=== PATIENT | male | born 1935 | race Caucasian/White ===

== ENCOUNTER 2023-11-04 07:27 | Inpatient (IN) ==
--- NOTE | 2023-11-04 07:55 | Emergency Department Note ---
Impression & Plan Generalized weakness, Fever, Hypomagnesemia, Elevated troponin, COVID-19 ED Provider Note ED Provider Note NAME: SENTHIL HESTER AGE:88 SEX: Male : 1935 ARRIVES VIA: EMS INFORMANT: Patient ED PROVIDER(s): Evelyn Thomas DO CHIEF COMPLAINT: Generalized weakness, fever, cough HPI: This is an 88-year-old male presents emergency department due to concern for generalized weakness. He states he felt fairly well yesterday. He states he has had a cough for several days although it is nonproductive. He denies any accompanying rhinorrhea, nasal congestion, or sore throat. Patient states his ribs are sore from coughing however no other chest pain. He denies abdominal pain, change in urine or change in stools. Patient noted to have a fever on arrival here. He states he did begin feeling subjective fevers and chills overnight into this morning. Patient is a former smoker. No known sick contacts. No recent travel. PAST MEDICAL HISTORY:See Below PAST SURGICAL HISTORY:See Below FAMILY HISTORY:See Below SOCIAL HISTORY:See Below HOME MEDICATIONS:See Below ALLERGIES:See Below VITALS:See Below PHYSICAL EXAMINATION: GENERAL: alert, well appearing, well nourished, no distress, non-toxic, [place] EYE EXAM: normal conjunctiva, PERRL and EOM's grossly intact OROPHARYNX: no exudate, no erythema, lips, buccal mucosa, and tongue normal and mucous membranes are dry NECK: supple, no nuchal rigidity, no adenopathy, non-tender LUNGS: Clear but decreased to auscultation. Normal chest wall mechanics, no w/r, rales noted at the right base HEART: no murmurs, S1 normal and S2 normal ABDOMEN: abdomen soft, non-tender, normo-active bowel sounds, no masses, no rebound or guarding. BACK: Back is symmetrical on inspection and there is no deformity, no midline tenderness, no CVA tenderness. SKIN: no rashes, petechiae, orbruising UPPER EXTREMITIES: upper extremities are grossly normal. FROM, nml pulses b/l. LOWER EXTREMITIES: No pitting edema. FROM, nml pulses b/l. NEURO EXAM: Normal sensorium, cranial nerves II-XII grossly intact, normal speech, no facial droop,nogross weakness of arms, no gross weakness of legs. Gross sensation intact. No ataxia. Vital Signs: reviewed and remarkable Differential Diagnosis: viral syndrome, otitis, pharyngitis, pneumonia, influenza, meningitis, urinary tract infection, sepsis, bacteremia, as well as others were entertained. MEDICAL DECISION MAKING: This is an 88-year-old male presents emergency department due to increased weakness. Patient noted to be febrile on arrival however other vital signs stable. He had no other focal complaints. Labs drawn and sent, IV established, EKG and chest ray performed bedside interpreted by me and patient monitored on telemetry. Nasal swab also obtained and sent for viral respiratory panel. Patient noted to have significant hypomagnesemia and markedly elevated troponin. He denied any chest pain or difficulty breathing. Chest x-ray suggestive of possible pulmonary edema. Nasal swab positive for COVID. Patient and then accompanying family members who presented to bedside all updated on results and need for additional inpatient monitoring. Patient does have significant cardiac history. Given new finding of COVID as well as chest x-ray, patient sent for CT angiography of the chest additionally. Case discussed with the hospitalist team for additional evaluation and management. Patient had been started on gentle IV fluid hydration initially due to unknown cardiac status and advanced age. He was also started on IV magnesium repletion. Consultation(s): 1123: Discussed with Dr. Tate, [place] hospitalist, for additional evaluation and mgmt. ER Treatment Provided: See below Diagnostics Interpreted By Me: -ECG: Sinus tachycardia at 101, normal axis, normal intervals, Q waves noted in 3, aVF, V3, no other acute ST/T wave changes -Cardiac Monitoring: An order was placed for continuous cardiac monitoring. The monitor shows a rate of 98 with normal sinus rhythm. -Laboratory studies: As stated above and show below. 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) Coronary artery disease DM (diabetes mellitus), type 2 with neurological complications Surgical History 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) Family History Father Myocardial infarction Denies family history of Ovarian cancer Prostate cancer Breast cancer Colorectal cancer Social History Smoking Status: Former smoker Tobacco Type: Cigarettes Age Quit Using Tobacco: 47; packs per day: 2; Hx Alcohol Use: No Hx Substance Use: No Preferred Language: Polish Communication Ability: Effective Visual Impairment: No Limitations Hearing Ability: Use of Hearing Aid Appraisal Coordinator Required: No Beliefs That Will Affect Care: None marital status: Current Living Situation: [facility] current occupational status: retired Feels Safe at Home: Yes Safety Concerns: Feels Safe At This Time Seatbelt Use: always Sunscreen Use: Yes Assistive Devices: Walker Allergies Allergies Allergy/AdvReac Type Severity Reaction Status Date / Time No Known Allergies Allergy Mild Unverified 10/06/23 11:00 Home Meds Home Medications Medication Instructions Recorded Confirmed dorzolamide 22.3 mg-timolol 6.8 1 drp OPB BID 12/10/22 11/04/23 mg/mL eye drops clopidogrel 75 mg tablet 75 mg PO Q2D 11/04/23 11/04/23 cyclosporine 0.05 % eye drops 1 drp OPB BID 11/04/23 11/04/23 dulaglutide 4.5 mg/0.5 mL 4.5 mg subcut Q7D 11/04/23 11/04/23 subcutaneous pen injector (Trulicity) ferrous sulfate 325 mg (65 mg 325 mg PO Q2D 11/04/23 11/04/23 iron) tablet glipizide 10 mg tablet, extended 10 mg PO QAM 11/04/23 11/04/23 release 24 hr metformin 1,000 mg tablet 1,000 mg PO BIDM 11/04/23 11/04/23 metoprolol succinate 50 mg 50 mg PO HS 11/04/23 11/04/23 tablet,extended release 24 hr Previous Rx's Medication Instructions Recorded aspirin 81 mg tablet,delayed 81 mg PO DAILY #90 tabs 06/12/23 release (Adult Low Dose Aspirin) finasteride 5 mg tablet (Proscar) 5 mg PO DAILY #90 tabs 07/23/23 pantoprazole 40 mg tablet,delayed 40 mg PO DAILY #90 tabs 07/29/23 release (Protonix) lisinopril 5 mg tablet 5 mg PO DAILY #90 tabs 08/21/23 acetaminophen 325 mg tablet 325 mg PO QID PRN pain #30 tabs 09/16/23 (Tylenol) benzonatate 100 mg capsule 100 mg PO TID PRN cough #30 caps 09/16/23 atorvastatin 40 mg tablet 40 mg PO QPM #90 tabs 10/06/23 blood sugar diagnostic #100 ea 10/06/23 cholecalciferol (vitamin D3) 50 50 mcg PO DAILY #90 caps 10/06/23 mcg (2,000 unit) capsule citalopram 10 mg tablet 10 mg PO DAILY #30 tabs 10/06/23 lancets (Accu-Chek Fastclix Lancet #100 ea 10/06/23 Drum) amlodipine 2.5 mg tablet 2.5 mg PO DAILY #90 tabs 10/13/23 metoprolol succinate 50 mg 75 mg (1.5 x 50 mg) PO QAM #135 10/26/23 tablet,extended release 24 hr tabs Results & Data (ED) Vital Signs Vital Signs - 24 hr 11/04/23 07:46 11/04/23 07:47 11/04/23 07:50 Temperature 38.1 C H Temperature Source Oral Pulse Rate 97 H 100 H 97 H Pulse Rate from SpO2 Sensor 97 H Respiratory Rate 24 20 Blood Pressure 153/78 H Blood Pressure Mean 103 Pulse Oximetry 95 97 Oxygen Delivery Method Room Air Room Air Sepsis Recent Fever Within 48 Hours Yes Sepsis New/Unexplained Change in Mental Status No Sepsis Action Taken by Nursing No Action Required 11/04/23 07:50 11/04/23 08:00 11/04/23 08:06 Temperature Temperature Source Pulse Rate 102 H 101 H Pulse Rate from SpO2 Sensor 103 H 105 H Respiratory Rate 23 18 Blood Pressure 163/90 H Blood Pressure Mean 114 Pulse Oximetry 95 94 96 Oxygen Delivery Method Room Air Room Air Room Air Sepsis Recent Fever Within 48 Hours Sepsis New/Unexplained Change in Mental Status Sepsis Action Taken by Nursing 11/04/23 08:06 11/04/23 08:15 11/04/23 08:30 Temperature Temperature Source Pulse Rate 98 H 96 H 97 H Pulse Rate from SpO2 Sensor 98 H 96 H 100 H Respiratory Rate 22 28 H 16 Blood Pressure 166/82 H 158/85 H 158/84 H Blood Pressure Mean 110 109 108 Pulse Oximetry 93 97 94 Oxygen Delivery Method Room Air Room Air Room Air Sepsis Recent Fever Within 48 Hours Sepsis New/Unexplained Change in Mental Status Sepsis Action Taken by Nursing 11/04/23 08:45 11/04/23 09:00 11/04/23 09:30 Temperature Temperature Source Pulse Rate 93 H 91 H 92 H Pulse Rate from SpO2 Sensor 95 H 92 H Respiratory Rate 21 21 25 H Blood Pressure 159/78 H 155/81 H 150/77 H Blood Pressure Mean 105 105 101 Pulse Oximetry 92 92 Oxygen Delivery Method Room Air Room Air Sepsis Recent Fever Within 48 Hours Sepsis New/Unexplained Change in Mental Status Sepsis Action Taken by Nursing 11/04/23 09:45 11/04/23 10:00 11/04/23 10:00 Temperature 37.0 C Temperature Source Oral Pulse Rate 87 81 Pulse Rate from SpO2 Sensor Respiratory Rate 19 20 Blood Pressure 155/83 H 149/77 H Blood Pressure Mean 107 101 Pulse Oximetry 98 97 Oxygen Delivery Method Room Air Room Air Sepsis Recent Fever Within 48 Hours Sepsis New/Unexplained Change in Mental Status Sepsis Action Taken by Nursing 11/04/23 10:12 11/04/23 10:15 11/04/23 10:30 Temperature 37.0 C Temperature Source Oral Pulse Rate 84 87 Pulse Rate from SpO2 Sensor 87 Respiratory Rate 20 16 Blood Pressure 154/76 H 149/79 H Blood Pressure Mean 102 102 Pulse Oximetry 98 95 Oxygen Delivery Method Room Air Room Air Sepsis Recent Fever Within 48 Hours Sepsis New/Unexplained Change in Mental Status Sepsis Action Taken by Nursing 11/04/23 10:45 11/04/23 11:00 Temperature Temperature Source Pulse Rate 89 84 Pulse Rate from SpO2 Sensor 89 84 Respiratory Rate 23 15 Blood Pressure 162/85 H 158/86 H Blood Pressure Mean 110 110 Pulse Oximetry 94 94 Oxygen Delivery Method Room Air Room Air Sepsis Recent Fever Within 48 Hours Sepsis New/Unexplained Change in Mental Status Sepsis Action Taken by Nursing Laboratory Data 11/05/23 06:36 11/05/23 06:36 Lab Results 11/04/23 11/04/23 11/04/23 Range/Units 07:43 09:23 10:09 WBC Cancelled 5.46 RBC Cancelled 3.76 L Hgb Cancelled 10.6 L Hct Cancelled 31.6 L MCV Cancelled 84.0 MCH Cancelled 28.2 MCHC Cancelled 33.5 RDW Std Deviation Cancelled 41.9 RDW Coeff of Brittany Cancelled 13.8 Plt Count Cancelled 132 MPV Cancelled 10.4 Immature Gran % (Auto) Cancelled 0.4 Neut % (Auto) Cancelled 80.9 Lymph % (Auto) Cancelled 5.3 Valley % (Auto) Cancelled 12.3 Eos % (Auto) Cancelled 0.7 Baso % (Auto) Cancelled 0.4 Neut # (Auto) Cancelled 4.42 Lymph # (Auto) Cancelled 0.29 L [place] # (Auto) Cancelled 0.67 H Eos # (Auto) Cancelled 0.04 Baso # (Auto) Cancelled 0.02 Immature Gran # (Auto) Cancelled 0.02 Absolute Nucleated RBC Cancelled Nucleated RBC % (auto) Cancelled Neutrophils % (Manual) Cancelled Band Neutrophils % Cancelled Lymphocytes % (Manual) Cancelled Prolymphocyte % Cancelled Reactive Lymphs % (Man) Cancelled Monocytes % (Manual) Cancelled Eosinophils % (Manual) Cancelled Basophils % (Manual) Cancelled Metamyelocytes % (Man) Cancelled Myelocytes % (Man) Cancelled Promyelocytes % (Man) Cancelled Blast Cells % (Manual) Cancelled Plasma Cell % (Manual) Cancelled Other Cells % Cancelled Nucleated RBC % Cancelled Neutrophils # (Manual) Cancelled Band Neutrophils # Cancelled Total Absolute Neuts Cancelled Lymphocytes # (Manual) Cancelled Prolymphocyte # Cancelled Reactive Lymphs # Cancelled Total Abs Lymphocytes Cancelled Monocytes # (Manual) Cancelled Eosinophils # (Manual) Cancelled Basophils # (Manual) Cancelled Metamyelocytes # (Man) Cancelled Myelocytes # (Manual) Cancelled Promyelocytes # (Man) Cancelled Blast Cells # (Man) Cancelled Plasma Cell # (Manual) Cancelled Other Cells # Cancelled Nucleated RBCs # (Man) Cancelled Hypersegmented Neuts Cancelled Hyposegmented Neuts Cancelled Hypogranular Neuts Cancelled Large Granular Lymphs Cancelled # Lrg Granular Lymphs Cancelled Hairy Cells Cancelled Smudge Cells Cancelled Toxic Granulation Cancelled Toxic Vacuolation Cancelled Dohle Bodies Cancelled Collin Rods Cancelled Platelet Estimate Cancelled Hypogranular Platelets Cancelled Giant Platelets Cancelled Platelet Satelliting Cancelled RBC Morphology Cancelled Polychromasia Cancelled Hypochromasia Cancelled Poikilocytosis Cancelled Basophilic Stippling Cancelled Anisocytosis Cancelled Microcytosis Cancelled Macrocytosis Cancelled Spherocytes Cancelled Pappenheimer Bodies Cancelled Sickle Cells Cancelled Target Cells Cancelled Tear Drop Cells Cancelled Ovalocytes Cancelled Stomatocytes Cancelled [place] Bodies Cancelled Echinocytes Cancelled Acanthocytes (Spur) Cancelled Rouleaux Cancelled RBC Agglutinates Cancelled Schistocytes Cancelled Sezary Cell Cancelled Sodium 137 (136-145) mmol/L Potassium 4.7 (3.5-5.1) mmol/L Chloride 107 (98-107) mmol/L Carbon Dioxide 21 (21-32) mmol/L Anion Gap 9 (3-11) BUN 22 (6-23) mg/dl Creatinine 1.65 H (0.6-1.4) mg/dl Est Cr Clr Drug Dosing 36.6 ml/min Est GFR ( Amer) 42.9 ml/min Est GFR (Non-Af Amer) 37.0 ml/min BUN/Creatinine Ratio 13.3 (10-20) Glucose 154 H (70-99(Fasting)) mg/dl Lactate 2.6 H* 1.9 (0.4-2.0) mmol/L Calcium 9.0 (8.6-10.3) mg/dl Magnesium 1.2 L 1.4 L (1.7-2.4) mg/dl Total Bilirubin 0.5 (0.2-1.0) mg/dl Direct Bilirubin TNP AST 22 (13-39) U/L ALT 13 (7-52) U/L Alkaline Phosphatase 85 (34-104) U/L Troponin I High Sens 2234.8 H* 2507.2 H* (0-20) pg/ml B-Natriuretic Peptide 510 H (0-100) pg/ml Total Protein 7.0 (6.0-8.3) gm/dl Albumin 4.2 (3.4-5.0) gm/dl Procalcitonin 0.09 (0-0.5) ng/ml Adenovirus (PCR) Not Detected (NotDetected) B. pertussis DNA (PCR) Not Detected (NotDetected) B.parapertussis DNA PCR Not Detected (NotDetected) C. pneumoniae DNA (PCR) Not Detected (NotDetected) Coronavirus OC43 (PCR) Not Detected (NotDetected) Coronavirus HKU1 (PCR) Not Detected (NotDetected) Coronavirus 229E (PCR) Not Detected (NotDetected) SARS-CoV-2 (PCR) DETECTED A (NotDetected) Coronavirus NL63 (PCR) Not Detected (NotDetected) Human Metapneumovir PCR Not Detected (NotDetected) Influenza Type A (PCR) Not Detected (NotDetected) Influenza Type B (PCR) Not Detected (NotDetected) M. pneumoniae (PCR) Not Detected (NotDetected) Parainfluenza 1 (PCR) Not Detected (NotDetected) Parainfluenza 2 (PCR) Not Detected (NotDetected) Parainfluenza 3 (PCR) Not Detected (NotDetected) Parainfluenza 4 (PCR) Not Detected (NotDetected) RSV (PCR) Not Detected (NotDetected) Entero/Rhino (PCR) Not Detected (NotDetected) Blood Parasites ID Cancelled Administered Medications Aspirin (Aspirin 81 Mg Ectab) 81 mg PO DAILY [facility] Stop: 12/05/23 08:59 Last Admin: 11/05/23 09:21 Dose: 81 mg Documented By: EVAN Atorvastatin Calcium (Atorvastatin 40 Mg Tab) 40 mg PO QPM [facility] Stop: 12/04/23 20:59 Last Admin: 11/04/23 21:32 Dose: 40 mg Documented By: ROB Citalopram Hydrobromide (Citalopram 20 Mg Tab) 10 mg PO DAILY [facility] Stop: 12/05/23 08:59 Last Admin: 11/05/23 09:20 Dose: 10 mg Documented By: EVAN Dorzolamide/Timolol (Dorzolamide/Timolol 22.3/6.8mg/Ml 10 Ml Btl) 1 drops OPB BID [facility] Stop: 12/04/23 20:59 Last Admin: 11/05/23 09:55 Dose: 1 drops Documented By: Admin: 11/04/23 21:31 Dose: 1 drops Documented By: ROB Ferrous Sulfate (Ferrous Sulfate 325 Mg Tab) 325 mg PO Q2D [facility] Stop: 12/05/23 08:59 Last Admin: 11/05/23 09:21 Dose: 325 mg Documented By: EVAN Finasteride (Finasteride 5 Mg Tab) 5 mg PO DAILY [facility] Stop: 12/05/23 08:59 Last Admin: 11/05/23 09:20 Dose: 5 mg Documented By: EVAN Insulin Aspart (Insulin Aspart Per Unit Charge) 0 units SC ACHS [facility] Stop: 12/04/23 15:50 Last Admin: 11/05/23 13:51 Dose: 5 units Documented By: EVAN Co-signed By: MARTY Admin: 11/05/23 10:15 Dose: 7 units Documented By: EVAN Co-signed By: MARTY Admin: 11/04/23 21:23 Dose: 2 units Documented By: ROB Co-signed By: LIDA Admin: 11/04/23 17:48 Dose: 2 units Documented By: MAGALY Co-signed By: LATOYA Admin: 11/04/23 17:47 Dose: Not Given Documented By: MAGALY Insulin Glargine (Lantus Per Unit Charge) 7 units SQ BID [facility] Stop: 12/04/23 20:59 Last Admin: 11/05/23 10:15 Dose: 7 units Documented By: EVAN Co-signed By: MARTY Admin: 11/04/23 21:24 Dose: 7 units Documented By: ROB Co-signed By: LIDA Lisinopril (Lisinopril 5 Mg Tab) 5 mg PO DAILY [facility] Stop: 12/05/23 08:59 Last Admin: 11/05/23 09:21 Dose: 5 mg Documented By: EVAN Magnesium Oxide (Magnesium Oxide 400 Mg Tab) 400 mg PO BID [facility] Stop: 12/04/23 10:29 Last Admin: 11/05/23 11:12 Dose: 400 mg Documented By: Admin: 11/04/23 21:32 Dose: 400 mg Documented By: Admin: 11/04/23 11:48 Dose: 400 mg Documented By: MARILOU Metoprolol Succinate (Metoprolol Succ 50mg Ext Rel Tab) 50 mg PO HS [facility] Stop: 12/04/23 20:59 Last Admin: 11/04/23 21:32 Dose: 50 mg Documented By: KJL Metoprolol Succinate (Metoprolol Succ 25mg Ext Rel Tab) 75 mg PO QAM [facility] Stop: 12/05/23 08:59 Last Admin: 11/05/23 09:20 Dose: 75 mg Documented By: DLDae Pantoprazole Sodium (Pantoprazole 40 Mg Tab) 40 mg PO DAILY [facility] Stop: 12/05/23 08:59 Last Admin: 11/05/23 09:20 Dose: 40 mg Documented By: DLDae Discontinued Medications Aspirin (Aspirin 81 Mg Ectab) 81 mg PO NOW STA Stop: 11/04/23 11:10 Last Admin: 11/04/23 11:50 Dose: 81 mg Documented By: NH Citalopram Hydrobromide (Citalopram 20 Mg Tab) 10 mg PO NOW STA Stop: 11/04/23 11:10 Last Admin: 11/04/23 11:49 Dose: 10 mg Documented By: NH Clopidogrel Bisulfate (Clopidogrel Bisulfate 75 Mg Tab) 75 mg PO NOW ONE Stop: 11/04/23 11:10 Last Admin: 11/04/23 11:48 Dose: 75 mg Documented By: NH Dorzolamide/Timolol (Dorzolamide/Timolol 22.3/6.8mg/Ml 10 Ml Btl) 1 drops OP ONE ONE Stop: 11/04/23 15:52 Last Admin: 11/04/23 17:00 Dose: Not Given Documented By: MAGALY Finasteride (Finasteride 5 Mg Tab) 5 mg PO NOW STA Stop: 11/04/23 11:10 Last Admin: 11/04/23 11:49 Dose: 5 mg Documented By: NH Sodium Chloride (Nss) 1,000 mls @ 999 mls/hr IV .Q1H1M AUDRA Stop: 11/04/23 09:00 Last Infusion: 11/04/23 09:57 Dose: Infused Documented By: Admin: 11/04/23 07:57 Dose: 999 mls/hr Documented By: HS Cefepime HCl (Maxipime) 2,000 mg in 20 mls @ 5 mls/min IV NOW STA; Protocol Stop: 11/04/23 07:54 Last Admin: 11/04/23 07:57 Dose: 5 mls/min Documented By: HS Acetaminophen (Ofirmev) 1,000 mg in 100 mls @ 400 mls/hr IV NOW STA Stop: 11/04/23 08:24 Last Infusion: 11/04/23 09:57 Dose: Infused Documented By: Admin: 11/04/23 08:19 Dose: 400 mls/hr Documented By: MARILOU Magnesium Sulfate/Dextrose (Magnesium Sulfate / D5w) 1 gm in 100 mls @ 100 mls/hr IV Q1H [facility]A Stop: 11/04/23 11:01 Last Infusion: 11/04/23 11:12 Dose: Infused Documented By: Admin: 11/04/23 10:11 Dose: 100 mls/hr Documented By: Infusion: 11/04/23 10:11 Dose: Infused Documented By: Admin: 11/04/23 09:17 Dose: 100 mls/hr Documented By: MARILOU Sodium Chloride (Nss) 1,000 mls @ 125 mls/hr IV .Q8H AUDRA Stop: 12/04/23 09:29 Last Infusion: 11/04/23 13:28 Dose: Infused Documented By: Infusion: 11/04/23 12:36 Dose: 0 mls/hr Documented By: Admin: 11/04/23 10:14 Dose: 125 mls/hr Documented By: MARILOU Lactated Ringer's (Lr) 1,000 mls @ 125 mls/hr IV .Q8H [facility]DRA Stop: 11/05/23 04:44 Last Infusion: 11/05/23 06:16 Dose: Infused Documented By: Admin: 11/04/23 21:36 Dose: 125 mls/hr Documented By: Infusion: 11/04/23 20:52 Dose: Infused Documented By: Admin: 11/04/23 12:52 Dose: 125 mls/hr Documented By: DENIS Magnesium Sulfate/Dextrose (Magnesium Sulfate / D5w) 1 gm in 100 mls @ 50 mls/hr IV Q2H [facility]DRA Stop: 11/05/23 12:44 Last Infusion: 11/05/23 13:31 Dose: Infused Documented By: Admin: 11/05/23 11:12 Dose: 50 mls/hr Documented By: Infusion: 11/05/23 11:04 Dose: Infused Documented By: Admin: 11/05/23 09:04 Dose: 50 mls/hr Documented By: EVAN Ioversol (Optiray 320 125ml) 118 ml IV ONCE ONE Stop: 11/04/23 11:12 Last Admin: 11/04/23 11:12 Dose: 1 ml Documented By: CAMILLA Lisinopril (Lisinopril 5 Mg Tab) 5 mg PO NOW ONE Stop: 11/04/23 11:10 Last Admin: 11/04/23 11:48 Dose: 5 mg Documented By: MARILOU Metoprolol Succinate (Metoprolol Succ 25mg Ext Rel Tab) 75 mg PO NOW STA Stop: 11/04/23 11:10 Last Admin: 11/04/23 11:49 Dose: 75 mg Documented By: MARILOU Pantoprazole Sodium (Pantoprazole 40 Mg Tab) 40 mg PO NOW STA Stop: 11/04/23 11:10 Last Admin: 11/04/23 11:47 Dose: 40 mg Documented By: MARILOU Imaging Data Radiologist's Impression: Chest X-Ray 11/04/23 07:50 XR chest 1V portable HISTORY: 88 years-old Male Sepsis acute sepsis COMPARISON: 01/07/2008 TECHNIQUE: AP view of the chest FINDINGS: Cardiac silhouette is enlarged. Cardiac loop recorder device. Pulmonary vascular congestion with interstitial coarsening. No pneumothorax. Small pleural effusions with mild bibasilar consolidation. Bones appear grossly intact. IMPRESSION: 1. Cardiomegaly with pulmonary edema. 2. Small pleural effusions with mild bibasilar consolidation. ACT 112: Negative or not required by law. The above report was generated using voice recognition software. It may contain grammatical, syntax or spelling errors. Electronically signed by: Andrew Kaplan M.D. 11/04/2023 8:34 AM Chest CTA 11/04/23 09:19 CHEST CTA for PULMONARY ARTERIES CT DOSE: 881.13 mGy.cm HISTORY: Shortness of breath. Covid positive. TECHNIQUE: Multiaxial CT images of the chest were performed following the intravenous administration of contrast to evaluate the pulmonary arteries. 3D/Maximal intensity projection images were also obtained. Sagittal and coronal reformations were also reviewed. A dose lowering technique was utilized adhering to the principles of ALARA. COMPARISON STUDY: Chest 11/04/2023. FINDINGS: Calcified plaque within the normal caliber thoracic aorta. No evidence for an aortic dissection. The heart is mildly enlarged. There are severe coronary artery calcifications noted. No pleural or pericardial effusions. No filling defects within the pulmonary arteries to suggest a pulmonary embolus. Normal thyroid gland. Normal caliber esophagus. Limited views of the upper abdomen demonstrate a normal liver, spleen, and adrenal glands. Prior cholecystectomy. No hilar lymphadenopathy. There are prominent right paratracheal lymph nodes measure up to 12 mm in short axis diameter. No acute fractures within the chest. The central airways are patent. No pneumothorax. Mild peripheral and basilar interstitial thickening. This is likely chronic. Mild congestive change could also have a similar appearance. There are mild dependent changes seen at the lung bases. Otherwise, no focal lung consolidations to suggest a pneumonia. IMPRESSION: 1. No evidence for a pulmonary embolus. 2. Mild cardiomegaly. 3. Mild mediastinal lymphadenopathy. This is indeterminate. 4. Mild peripheral and basilar interstitial thickening which is likely chronic. Mild congestive change could also have a similar appearance. ACT 112: Negative or not required by law. Electronically signed by: Ranjit Suarez M.D. 11/04/2023 11:27 AM Discharge Plan Visit Data Chief Complaint: Illness Stated Complaint: ILLNESS ED Provider: Evelyn Thomas Discharge Problem: Generalized weakness, Fever, Hypomagnesemia, Elevated troponin, COVID-19 Patient Disposition: Admitted As Inpatient Discharge Instructions Interventions: ED Discharge Assessment Last Done: 11/04/23 12:44
[2023-11-04] MEDS: SODIUM CHLORIDE 0.9% 1,000 ML IV SCH ×2 (07:57→10:14)
[2023-11-04] MEDS: CEFEPIME 2,000 MG/20 ML VIAL IV STA (07:57)
[2023-11-04] MEDS: ACETAMINOPHEN 1,000 MG/100 ML VIAL IV STA (08:19)
--- NOTE | 2023-11-04 08:36 | XRay Report ---
XR chest 1V portable HISTORY: 88 years-old Male Sepsis acute sepsis COMPARISON: 01/07/2008 TECHNIQUE: AP view of the chest FINDINGS: Cardiac silhouette is enlarged. Cardiac loop recorder device. Pulmonary vascular congestion with inte rstitial coarsening. No pneumothorax. Small pleural effusions with mild bibasilar consolidation. Bone s appear grossly intact. IMPRESSION: 1. Cardiomegaly with pulmonary edema. 2. Small pleural effusions with mild bibasilar consolidation. ACT 112: Negative or not required by law. The above report was generated using voice recognition software. It may contain grammatical, syntax o r spelling errors. Electronically signed by: Andrew Kaplan M.D. 11/04/2023 8:34 AM
[2023-11-04 09:00] LABS: Adenovirus PCR Not Detected (NotDetected); Alanine Aminotransferase 13 U/L (7-52); Albumin Level 4.2 gm/dl (3.4-5.0); Alkaline Phosphatase 85 U/L (34-104); Anion Gap 9 (3-11); Aspartate Aminotransferase 22 U/L (13-39); BUN Creatinine Ratio 13.3 (10-20); Bilirubin,Total 0.5 mg/dl (0.2-1.0); Blood Urea Nitrogen 22 mg/dl (6-23); Bordetella parapertussis PCR Not Detected (NotDetected); Bordetella pertussis PCR Not Detected (NotDetected); Carbon Dioxide 21 mmol/L (21-32); Chlamydia pneumoniae PCR Not Detected (NotDetected); Chloride 107 mmol/L (98-107); Coronavirus 229E PCR Not Detected (NotDetected); Coronavirus CoV-2 (COVID19)PCR DETECTED (NotDetected); Coronavirus HKU1 PCR Not Detected (NotDetected); Coronavirus NL63 PCR Not Detected (NotDetected); Coronavirus OC43PCR Not Detected (NotDetected); Creatinine Clr Calc Pharmacy 36.6 ml/min; Est GFR (African American) 42.9 ml/min; Glucose 154 mg/dl (70-99(Fasting)); Human Metapneumovirus PCR Not Detected (NotDetected); Influenza A PCR Not Detected (NotDetected); Influenza B PCR Not Detected (NotDetected); Magnesium 1.2 mg/dl (1.7-2.4); Mycoplasma pneumoniae PCR Not Detected (NotDetected); Parainfluenza Virus 1 PCR Not Detected (NotDetected); Parainfluenza Virus 2 PCR Not Detected (NotDetected); Parainfluenza Virus 3 PCR Not Detected (NotDetected); Parainfluenza Virus 4 PCR Not Detected (NotDetected); Potassium 4.7 mmol/L (3.5-5.1); Respiratory Syncytial VirusPCR Not Detected (NotDetected); Rhinovirus/Enterovirus PCR Not Detected (NotDetected); Sodium 137 mmol/L (136-145); Troponin I High Sensitivity 2234.8 pg/ml (0-20)
[2023-11-04] MEDS: MAGNESIUM SULFATE / D5W 1 GM/100 ML BAG IV SCH (09:17)
[2023-11-04 09:49] LABS: Basophils # (auto) 0.02 K/uL (0.00-0.20); Basophils % (auto) 0.4 %; Eosinophils # (auto) 0.04 K/uL (0.00-0.50); Eosinophils % (auto) 0.7 %; Hematocrit (blood only) 31.6 % (42.0-52.0); Hemoglobin 10.6 g/dl (14.0-18.0); Immature Granulocytes # (auto) 0.02 K/uL (0.01-0.20); Immature Granulocytes % (auto) 0.4 %; Lymphocytes # (auto) 0.29 K/uL (1.20-3.40); Lymphocytes % (auto) 5.3 %; Mean Corpuscular Hemoglobin 28.2 pg (25.0-34.0); Mean Corpuscular Hgb Conc 33.5 g/dL (32.0-36.0); Mean Platelet Volume 10.4 fL (9.4-12.4); Monocytes # (auto) 0.67 K/uL (0.11-0.59); Monocytes % (auto) 12.3 %; Neutrophils # (auto) 4.42 K/uL (1.40-6.50); Neutrophils % (auto) 80.9 %; Platelet Count 132 K/uL (130-400); RDW Coefficient of Variation 13.8 % (11.5-14.5); RDW Standard Deviation 41.9 fL (36.4-46.3); Red Blood Count 3.76 M/uL (4.70-6.10); White Blood Count 5.46 K/ul (4.8-10.8)
--- NOTE | 2023-11-04 10:16 | History & Physical Report ---
Date of Service November 04, 2023 Assessment & Plan (1) COVID: Plan: Worsening cough, weakness, and SULLIVAN the evening of 11/02 COVID + on arrival Chest CTA revealed no evidence of pulmonary embolus Isolation precautions Non-hypoxia in the ED; remdesivir not currently indicated (will also caution use given renal function) Tessalon Perles 100 mg p.o. as needed for cough Continuous pulse oximetry Supplemental oxygen as needed PT/OT consulted A.m. CBC, BMP, mag (2) Elevated troponin: Plan: Troponin elevated at 2234-->2507 Clinically, patient does endorse some chest pain, but he attributes it to recent coughing fits; no pleuritic CP, back pain, or left arm/jaw/shoulder pain or pressure May be secondary to demand ischemia given extensive cardiac history Discussed case with cardiology, and agree that given no ACS symptoms and high bleed risk (history of CVA with hemorrhagic transition) will defer anticoagulation at this time Trend troponin q6h Continuous telemetry monitoring (3) Pulmonary edema: Plan: CXR revealed cardiomegaly with pulmonary edema, as well as small pleural effusions BNP elevated at 510 (no prior for comparison) Echocardiogram ordered, pending (from note on prior echo, previously had an LVEF at 35-40%) (4) DM (diabetes mellitus), type 2 with neurological complications: Plan: Last A1c at 6.5% on 02/03/2023 Glucose 154 on admission Hold metformin, glipizide, dulaglutide Lantus 10 u BID while inpatient SSI; with target BSG range 110-140mg/dL, CF 25, carb ratio 8 T2DM diet BSG ACHS Adjust regimen as needed AM A1c (5) Stented coronary artery: Plan: S/p 5 coronary stents (with the last being in August 2022) Continue aspirin daily Plavix every other day (given on Friday 11/03) (6) Hypomagnesemia: Plan: Magnesium 1.2 on arrival Magnesium sulfate 1 g x 2 + 400mg p.o. Repeat a.m. mag (7) Sepsis: Plan: Tachycardic, febrile on arrival with pulmonary source (viral) Patient received 1000 mL bolus of NS in the ED + maintenance fluids Blood cultures ordered, pending Lactate 2.6-->1.9 on arrival Procalcitonin WNL Empiric antibiotics with Rocephin 2000 mg IV given in the ED No leukocytosis, negative procalcitonin, and (+) for viral illness; will defer further antibiotics at this time Given pulmonary edema on CXR and no hypotension in the ED, will defer full fluid bolus at this time (8) HTN (hypertension): Plan: Continue metoprolol Continue lisinopril Hold amlodipine for now (pending echo and potential need for diuresis; lower extremities without edema at this time) (9) CKD stage 3b, 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: Plan: BUN 22, creatinine 1.65 (baseline 1.5), EGFR 37.0 Avoid nephrotoxic agents where possible Continue finasteride/iron supplementation (10) Anemia: Plan: Mild; Hgb 10.6 on arrival MCV WNL (11) 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): Plan: At [facility] in September 2022 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 He presented for worsening cough, weakness, and SULLIVAN that started the evening of 11/02. Patient reports that he had a hard time sleeping that night due to cough. His is at the bedside, as well as his son/POA (Anatoly) who provides most of the history. Patient was reportedly winded when walking to dinner the evening prior. He was then feeling "groggy" during dinner, and endorsed generalized weakness at that time. He denies SOB at rest, or positional SOB such as when he lays flat. He denies history of heart failure; does note he was eating a salty dinner last night fries/fried fish sandwich. No supplemental oxygen use at home. Patient reports he is up-to-date on his COVID shots and booster. He has never had COVID before to his knowledge. He does have an extensive history of TN/CVA; cardiac r arrest in 1995; s/p 5 coronary stents with the last being in August 2023. He notes that he did have anesthesia and a skin biopsy in his left hand at a dermatology appointment on 11/02, and is unsure if this contributed to his symptoms of grogginess. Patient did not take his regular morning medications today; no recent change in medications. Patient is hypertensive at 159/78, and mildly febrile at 38.1 C at time of admission; SpO2 92% on room air. ED course: Acetaminophen 1000 mg IV Rocephin 2000 mg IV NSS 1000 mL IV Magnesium sulfate 1 g IV ROS: Patient endorses fatigue, some dizziness/lightheadedness, dry cough, chest achiness (which patient attributes to dry cough), SULLIVAN, and generalized weakness. Patient denies fever, chills, nightsweats, chest pain (anytime after stent placement in August), pleuritic CP at present, hemoptysis, pain or pressure in the left arm/shoulder/jaw, back pain, abdominal pain, N/V/D, change in urinary or bowel habits, or numbness/pain/tingling in the arms or legs bilaterally. Allergies Allergy/AdvReac Type Severity Reaction Status Date / Time No Known Allergies Allergy Mild Unverified 10/06/23 11:00 Home Medications Medication Instructions Recorded Confirmed Type dorzolamide 22.3 mg-timolol 6.8 1 drp OPB BID 12/10/22 11/04/23 History mg/mL eye drops aspirin 81 mg tablet,delayed 81 mg PO DAILY #90 tabs 06/12/23 11/04/23 Rx release (Adult Low Dose Aspirin) finasteride 5 mg tablet (Proscar) 5 mg PO DAILY #90 tabs 07/23/23 11/04/23 Rx pantoprazole 40 mg tablet,delayed 40 mg PO DAILY #90 tabs 07/29/23 11/04/23 Rx release (Protonix) lisinopril 5 mg tablet 5 mg PO DAILY #90 tabs 08/21/23 11/04/23 Rx acetaminophen 325 mg tablet 325 mg PO QID PRN pain #30 tabs 09/16/23 11/04/23 Rx (Tylenol) benzonatate 100 mg capsule 100 mg PO TID PRN cough #30 caps 09/16/23 11/04/23 Rx atorvastatin 40 mg tablet 40 mg PO QPM #90 tabs 10/06/23 11/04/23 Rx blood sugar diagnostic #100 ea 10/06/23 Rx cholecalciferol (vitamin D3) 50 50 mcg PO DAILY #90 caps 10/06/23 11/04/23 Rx mcg (2,000 unit) capsule citalopram 10 mg tablet 10 mg PO DAILY #30 tabs 10/06/23 11/04/23 Rx lancets (Accu-Chek Fastclix Lancet #100 ea 10/06/23 Rx Drum) amlodipine 2.5 mg tablet 2.5 mg PO DAILY #90 tabs 10/13/23 11/04/23 Rx metoprolol succinate 50 mg 75 mg (1.5 x 50 mg) PO QAM #135 10/26/23 11/04/23 Rx tablet,extended release 24 hr tabs clopidogrel 75 mg tablet 75 mg PO Q2D 11/04/23 11/04/23 History cyclosporine 0.05 % eye drops 1 drp OPB BID 11/04/23 11/04/23 History dulaglutide 4.5 mg/0.5 mL 4.5 mg subcut Q7D 11/04/23 11/04/23 History subcutaneous pen injector (Trulicity) ferrous sulfate 325 mg (65 mg 325 mg PO Q2D 11/04/23 11/04/23 History iron) tablet glipizide 10 mg tablet, extended 10 mg PO QAM 11/04/23 11/04/23 History release 24 hr metformin 1,000 mg tablet 1,000 mg PO BIDM 11/04/23 11/04/23 History metoprolol succinate 50 mg 50 mg PO HS 11/04/23 11/04/23 History tablet,extended release 24 hr Past Med/Surg History Medical History (Updated 11/04/23 @ 11:37 by Ranjit Harmon PA-C) CKD stage 3b, 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 Myocardial infarction (1995) Cardiac arrest (1995) Mild cognitive impairment 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) Coronary artery disease DM (diabetes mellitus), type 2 with neurological complications Surgical History 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) Family History Father Myocardial infarction Denies family history of Ovarian cancer Prostate cancer Breast cancer Colorectal cancer Social History Smoking Status: Former smoker Tobacco Type: Cigarettes Age Quit Using Tobacco: 47; packs per day: 2; Hx Alcohol Use: No Hx Substance Use: No Preferred Language: Guamanian Communication Ability: Effective Visual Impairment: No Limitations Hearing Ability: Use of Hearing Aid 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: No Beliefs That Will Affect Care: None marital status: Current Living Situation: Spouse and Group Home current occupational status: retired Feels Safe at Home: Yes Safety Concerns: Feels Safe At This Time Seatbelt Use: always Sunscreen Use: Yes Assistive Devices: None Review of Systems Review of Systems: See HPI above Physical Exam Physical Exam: General: no acute distress; non-toxic appearing; well-nourished; cooperative; SpO2 98% on RA HEENT: normocephalic, atraumatic; no scleral icterus; PERRLA w/ EOMs intact; moist mucus membrane; hard of hearing Neck: supple; no lymphadenopathy; trachea midline Skin: warm, dry without signs of tenting; no cyanosis; no rashes, bruising, lesions, or erythema noted CV: chest wall NTP; RRR; S1/S2 normal; no murmurs/rubs/gallops; pulses intact and symmetric at radial, DP, and PT Lungs: no acute respiratory distress; symmetrical chest wall expansion; clear breath sounds across all lung talbert w/o adventitious sounds; no wheezing ABD: Soft, NTP; BS present; no rebound/guarding; no distention MSK: no tics or fasciculations; no edema noted in the LEs b/l, nonerythematous Neuro: A&Ox3; normal mood and affect; fluent speech; no focal deficits; sensation grossly intact in the LEs b/l Results & Data Results & Data Vital Signs (Past 12 Hours) Vital Signs Temp Pulse Resp BP Pulse Ox O2 Del Method 11/04/23 08:45 93 H 21 159/78 H 92 Room Air 11/04/23 08:30 97 H 16 158/84 H 94 Room Air 11/04/23 08:15 96 H 28 H 158/85 H 97 Room Air 11/04/23 08:06 98 H 22 166/82 H 93 Room Air 11/04/23 08:06 96 Room Air 11/04/23 08:00 101 H 18 163/90 H 94 Room Air 11/04/23 07:50 102 H 23 95 Room Air 11/04/23 07:50 97 H 11/04/23 07:47 38.1 C H 100 H 20 153/78 H 97 Room Air 11/04/23 07:46 97 H 24 95 Room Air Laboratory Results Abnormal lab results 11/04/23 11/04/23 Range/Units 07:43 09:23 RBC 3.76 L (4.70-6.10) M/uL Hgb 10.6 L (14.0-18.0) g/dl Hct 31.6 L (42.0-52.0) % Lymph # (Auto) 0.29 L (1.20-3.40) K/uL Arthur # (Auto) 0.67 H (0.11-0.59) K/uL Creatinine 1.65 H (0.6-1.4) mg/dl Glucose 154 H (70-99(Fasting)) mg/dl Lactate 2.6 H* (0.4-2.0) mmol/L Magnesium 1.2 L (1.7-2.4) mg/dl Troponin I High Sens 2234.8 H* (0-20) pg/ml SARS-CoV-2 (PCR) DETECTED A (NotDetected) Diagnostic Findings Chest X-Ray 11/04/23 07:50 XR chest 1V portable HISTORY: 88 years-old Male Sepsis acute sepsis COMPARISON: 01/07/2008 TECHNIQUE: AP view of the chest FINDINGS: Cardiac silhouette is enlarged. Cardiac loop recorder device. Pulmonary vascular congestion with interstitial coarsening. No pneumothorax. Small pleural effusions with mild bibasilar consolidation. Bones appear grossly intact. IMPRESSION: 1. Cardiomegaly with pulmonary edema. 2. Small pleural effusions with mild bibasilar consolidation. ACT 112: Negative or not required by law. The above report was generated using voice recognition software. It may contain grammatical, syntax or spelling errors. Electronically signed by: Andrew Kaplan M.D. 11/04/2023 8:34 AM ECG Additional Comments: EKG revealed sinus tachycardia at 101 bpm; QTc 438 Age-indeterminate anterior infarct also present on prior EKG in October 2022 Code Status & VTE Plan Code Status DNR/DNI VTE Prophylaxis Plan VTE Prophylaxis will be ordered: Yes Supervising Physician Co-Signing Physician Notes Patient seen and examined, chart reviewed, case discussed with Ranjit Harmon and I agree with the assessment and plan as above except as otherwise noted Labs and images reviewed Goran is an 88[facility] with a past medical history of CAD with PCI and cardiac arrest in 1995 with multiple stents over the years subsequent to this last 08/2022 with JODY to circumflex and OM1, history of CVA with some residual balance deficit and visual field cut, hyperlipidemia, mild cognitive impairment, DM 2 on metformin/glipizide/Trulicity not on insulin who presents to the emergency department with 1 day of generalized weakness, several days of nonproductive cough, and fever. Patient was reportedly well and went to dinner with family yesterday was doing okay other than a nonproductive cough; morning of admission developed fevers/chills, general worsening, and weakness. Pt reports he did have a basket/side of salted fries and fried fish last night, denies history of heart failure/orthopnea although does not sleep laying down normally has a comfortable recliner that he uses most of the time. Reports he has never had a prior history of shortness of breath laying flat. No leg swelling. He has not had any chest pain at any point preceding admission or on admission. On ER assessment he was tachycardic, febrile, but without a yokasta kocytosis and with suspected pulmonary source due to cough. He received empiric antibiotics with cefepime and NSS 1 L bolus, additional fluids were deferred as chest x-ray shows evidence of pulmonary edema with troponin elevation. At bedside lungs CTAB, HR rrr -mrg. No LE edema or JVD is present. Fever, weakness, cough 2/2 COVID-pneumonia No evidence of bacterial superinfection, no leukocytosis and procalcitonin is normal Patient is not hypoxic, remdesivir/dexamethasone are not currently indicated - Fluids as above, clinically improving - Mg repleted, trended - APAP PRN Elevated troponin, history of CAD with PCI total x 5 last 08/[address] Anderson as an outpatient. JODY to circumflex/POBA to OM1 in 08/2022, No echo available for review, ordered Initial troponin greater than 2234. No chest pain preceding or at time of admission Patient has been chest pain-free, does have a significantly elevated troponin with demand changes on EKG. He is clinically improved following initial fluids and resuscitation lactate is normalized. Will follow echo and troponin trend. Patient has increased risk of complications of heparinization due to history of bleeding and history of intracranial bleed in the past. Would not heparinize unless necessary, discussed with patient and family who are agreeable and note they have walked this line many times and agree to avoid heparinization unless patient has ST elevations, especially uptrending troponin, or clinical change consistent with ACS including chest pain/diaphoresis. Suspect trop is 2/2 demand with COVID/acute viral illness. DAPT continued Patient did have salted fries and fried fish the evening prior to presentation and chest x-ray is with pleural effusions and congestion. Followup CTA with no evidence of PE, chronic basilar change vs mild/early congestive change overall does not appear significantly congested. Clinically pt improving with initial fluids in the setting of COVID, is without BERTA, orthopnea, or JVD. Agree w/ fluids as above, NSS switched to LR, diuresis not currently recommended. 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 Due to this his Plavix was decreased to 75 mg daily to every other day combination with aspirin after he was 6 months out from PCI Metoprolol 75 mg a.m./50 mg p.m. continued. Amlodipine 2.5 mg continued Last LDL well-controlled, 33. A1c previously well-controlled less than 7. Patient did have a event monitor without any evidence of atrial fibrillation, risks of anticoagulation especially given history of hemorrhagic stroke conversion were felt to outweigh any benefit and patient is not on anticoagulation T2DM - Hold home antiglycemics, basal-bolus whil einpt. Goal range 110-150. PG Care Time/CCT Total # of Minutes Spent Total Time Spent with Patient: Total time spent is greater than 50% in coordination of care (as documented) at patient's floor/unit and/or counseling patient: [place] [address] INT INP/OBS CARE 3/75MIN Patient Type New History Comprehensive Exam Comprehensive Medical Decision Making High Complexity Diagnoses COVID U07.1 Elevated troponin R79.89 Pulmonary edema J81.1 DM (diabetes mellitus), type 2 with neurological complications E11.49 Stented coronary artery Z95.5 Hypomagnesemia E83.42 Sepsis A41.9 HTN (hypertension) I10 CKD stage 3b, 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
[2023-11-04 11:10] LABS: Troponin I High Sensitivity 2507.2 pg/ml (0-20)
[2023-11-04] MEDS: OPTIRAY 320 125ml IV ONE (11:12)
--- NOTE | 2023-11-04 11:28 | CT Scan Report ---
CHEST CTA for PULMONARY ARTERIES CT DOSE: 881.13 mGy.cm HISTORY: Shortness of breath. Covid positive. TECHNIQUE: Multiaxial CT images of the chest were performed following the intravenous administration of contrast to evaluate the pulmonary arteries. 3D/Maximal intensity projection images were also obta ined. Sagittal and coronal reformations were also reviewed. A dose lowering technique was utilized a dhering to the principles of ALARA. COMPARISON STUDY: Chest 11/04/2023. FINDINGS: Calcified plaque within the normal caliber thoracic aorta. No evidence for an aortic dissec tion. The heart is mildly enlarged. There are severe coronary artery calcifications noted. No pleural or pericardial effusions. No filling defects within the pulmonary arteries to suggest a pulmonary em bolus. Normal thyroid gland. Normal caliber esophagus. Limited views of the upper abdomen demonstrate a normal liver, spleen, and adrenal glands. Prior cholecystectomy. No hilar lymphadenopathy. There a re prominent right paratracheal lymph nodes measure up to 12 mm in short axis diameter. No acute frac tures within the chest. The central airways are patent. No pneumothorax. Mild peripheral and basilar interstitial thickening. This is likely chronic. Mild congestive change could also have a similar dylan earance. There are mild dependent changes seen at the lung bases. Otherwise, no focal lung consolidat ions to suggest a pneumonia. IMPRESSION: 1. No evidence for a pulmonary embolus. 2. Mild cardiomegaly. 3. Mild mediastinal lymphadenopathy. This is indeterminate. 4. Mild peripheral and basilar interstitial thickening which is likely chronic. Mild congestive mcelroy e could also have a similar appearance. ACT 112: Negative or not required by law. Electronically signed by: Ranjit Suarez M.D. 11/04/2023 11:27 AM
[2023-11-04] MEDS: PANTOprazole 40 MG TAB PO STA (11:47)
[2023-11-04] MEDS: lisinopril 5 MG TAB PO ONE (11:48)
[2023-11-04] MEDS: CLOPIDOGREL BISULFATE 75 MG TAB PO ONE (11:48)
[2023-11-04] MEDS: MAGNESIUM OXIDE 400 MG TAB PO SCH (11:48)
[2023-11-04] MEDS: FINASTERIDE 5 MG TAB PO STA (11:49)
[2023-11-04] MEDS: CITALOPRAM 20 MG TAB PO STA (11:49)
[2023-11-04] MEDS: METOPROLOL SUCC 25MG EXT REL TAB PO STA (11:49)
[2023-11-04] MEDS: ASPIRIN 81 MG ECTAB PO STA (11:50)
[2023-11-04 12:32] LABS: Appearance Urine Clear (Clear); Bacteria Urine Automated None Seen (None Seen); Bilirubin Urine Negative (Negative); Blood Urine Negative (Negative); Cast Urine Automated 0-2 /lpf (0-2); Color Urine Yellow; Epithelial Cell Urine Auto 0-2 /hpf (0-2); Glucose Urine UA Negative (Negative); Ketones Urine Negative (Negative); Leukocyte Esterase Urine Negative (Negative); Nitrite Urine Negative (Negative); Protein Urine 2+ (Negative); RBC Urine Automated 0-2 /hpf (0-2); Specific Gravity Urine 1.023 (1.000-1.030); Urobilinogen Urine Negative (Negative); WBC Urine Automated 0-5 /hpf (0-5)
[2023-11-04] MEDS: LACTATED RINGER'S 1,000 ML IV SCH (12:52)
--- OUTSIDE RECORDS SUMMARY | 2023-11-04 13:16 | External Medical Summary | Continuity of Care Document ---
Author Name Unknown Organization [facility] [address] [facility] [address] [phone] Care Team Providers Care Equipment Mechanic Specialist Name Role Phone Jeremy Primary Care Physician [phone] [facility] [id number] Date(s): 09/16/23 - 09/16/23 [facility] [address] [facility] [address] [phone] Encounter Diagnosis Basal cell carcinoma of skin(Discharge Diagnosis) - 09/16/23 Actinic keratoses(Discharge Diagnosis) - 09/16/23 Superficial skin infection(Discharge Diagnosis) - 09/16/23 History of nonmelanoma skin cancer(Discharge Diagnosis) - 09/16/23 Seborrheic keratoses(Discharge Diagnosis) - 09/16/23 Discharge Disposition: Home or Self Care Attending Physician: MD Morales Cassandra Allergies, Adverse Reactions, Alerts No Known Allergies Assessment and Plan Extracted from: Title:Dermatology Office Visit Note Author:Lionel tiwari MD, Christina Date:09/16/23 1.Basal cell carcinoma of skin - Discussed with patient and son, patient has multiplebasal cell carcinomas on clinical exam today (right lowerlip at vermilion border previously biopsied,right cheek, left cheek, andright nasal tip). We have had discussions in the past, patientdoes not want to proceed with anyinvasive treatmentof cancers that are not symptomatic or dangerousto life/health - Patient is bothered bysymptoms ofbasal cell at right lower lip, vermilion border. We reviewedMohs surgery as treatment of choice. Discussed with patient, I understand he would like to avoid surgery so we discussed additional options including less invasive and E D&C versus topical chemotherapy cream. Patient would like to proceed with trial of topical chemotherapy cream. He understands thatthis treatment is notFDA approved fornodular/micronodular basal cell carcinoma and has a lower cure rate thanED&Cand certainly Mohs surgery. Bothpatient and his son voiced understanding. - Patient toleratedthe Dex cream although developssignificant responseon his nosein the past. We discussed trial of5-fluorouracil plus calcipotrienecream, patient would like toproceed with this. - Prescription for5-FU + calcipotriene cream sent [facility] pharmacy. Patient's son's phone number providedas contactto help facilitate with delivery ofmedication. - Application instructions reviewedin detail. Patient will apply Vaselineat least twice daily and as needed to affected areaduring treatment as well asafterwards until fully healed. 2.Actinic keratoses - Chronic and multiple. Patientdeclines treatment as lesions are not bothersome to him 3.Superficial skin infection - Acute, left dorsal hand, suspect secondarily infected actinic keratosis -Start mupirocin 2% ointment, apply thin layer to affected area twice daily for 14 days 4.Seborrheic keratoses - chronic skin lesions, benign, reassurance provided 5.History of nonmelanoma skin cancer - Significant history of nonmelanoma skin cancer as well as multiple active/untreated basal cell skin cancers - counselled skin cancer warning signs, monthly skin self exams Follow-up 4 weeks Medications amLODIPine 2.5 mg oral tablet Start: 05/28/23 10:41:00 EDT, 1 tab, PO, Daily Start Date: 05/28/23 Status: Ordered aspirin 81 mg oral delayed release tablet Start: 05/28/23 10:50:00 EDT, 1 tab, PO, Daily Start Date: 05/28/23 Status: Ordered atorvastatin 40 mg oral tablet Start: 05/28/23 10:44:00 EDT, 1 tab, PO, Daily Start Date: 05/28/23 Status: Ordered cholecalciferol Start: 05/28/23 10:47:00 EDT, See Instructions, 50 mcg one in the afternoon. Start Date: 05/28/23 Status: Ordered citalopram 10 mg oral tablet Start: 05/28/23 10:45:00 EDT, 1 tab, PO, Daily Start Date: 05/28/23 Status: Ordered clopidogrel 75 mg oral tablet Start: 05/28/23 10:44:00 EDT Start Date: 05/28/23 Status: Ordered cycloSPORINE 0.05% ophthalmic emulsion Start: 05/28/23 10:48:00 EDT, 1 drop, both eyes, q12h Start Date: 05/28/23 Status: Ordered dorzolamide-timolol 2.23%-0.68% ophthalmic solution Start: 05/28/23 10:42:00 EDT, 1 drop, both eyes, bid Start Date: 05/28/23 Status: Ordered ferrous sulfate 325 mg (65 mg elemental iron) oral tablet Start: 05/28/23 10:49:00 EDT, See Instructions, every other day Start Date: 05/28/23 Status: Ordered finasteride 5 mg oral tablet Start: 05/28/23 10:42:00 EDT, 1 tab, PO, Daily Start Date: 05/28/23 Status: Ordered glipiZIDE 10 mg oral tablet, extended release Start: 05/28/23 10:41:00 EDT, 1 tab, PO, Daily Start Date: 05/28/23 Status: Ordered lisinopril 5 mg oral tablet Start: 05/28/23 10:44:00 EDT, 1 tab, PO, Daily Start Date: 05/28/23 Status: Ordered metFORMIN 1000 mg oral tablet Start: 05/28/23 10:45:00 EDT, 1 tab, PO, bid Start Date: 05/28/23 Status: Ordered Metoprolol Succinate ER 50 mg oral tablet, extended release Start: 05/28/23 10:42:00 EDT Start Date: 05/28/23 Status: Ordered mupirocin 2% topical ointment Start: 09/16/23 15:25:00 EST, 1 appl, topical, tid, Disp# 22 g, X 14 day, Refills: 1, Apply a thin film to affected area on left hand twice daily, Stop: 10/14/23 15:25:00 EDT, Pharmacy: [facility] Start Date: 09/16/23 Stop Date: 10/14/23 Status: Ordered pantoprazole 40 mg oral delayed release tablet Start: 05/28/23 10:43:00 EDT, 1 tab, PO, Daily Start Date: 05/28/23 Status: Ordered Trulicity Pen 4.5 mg/0.5 mL subcutaneous solution Start: 05/28/23 10:41:00 EDT Start Date: 05/28/23 Status: Ordered Mental Status 09/16/23 Barriers to Learning one year None evide nt Mandatory Health Literacy Documentation Yes Health Literacy Communication Barriers N ever Primary Language Czech Problem List Diagnosis Diagnosis Type Effective Dates Health Status Clinical Service Informant History of nonmelanoma skin cancer Discharge Diagnosis 09/16/23 Basal cell carcinoma of skin Discharge Diagnosis 09/16/23 Actinic keratoses Discharge Diagnosis 09/16/23 Seborrheic keratoses Discharge Diagnosis 09/16/23 Superficial skin infection Discharge Diagnosis 09/16/23 Social History Social History Type Response Smoking Status Never smoked cigaret meghan Sex Male Dermatology Outpatient Note * MD Andrew, Christina: PERFORM Event Display: Dermatology Outpt Note Authored Date: [id number] Chief Complaint Follow up check lower lip and S/P Efudex tx nose. Accompanied by son. History of Present Illness Is an 88-year-old male, returning for follow-upto evaluate response of Efudex treatmentto the nose and also discussedpathology results from recent biopsy at lower lip. Accompanied tothe office by his son who is POA. Patient reports and son confirms that heended up using Efudex cream to nose and medial cheeksfor total of 8 weeks. He developed a significant responsewith crusting and oozingbutreports that he toleratedthis without significant discomfort. Note is healed incredibly well sincetreatment and he is very happy with outcome. Patient notes that the spot on hisright lower lip that was biopsied (pathology as below, BCC) is smaller thanprebiopsy size howeverdoes often peeling crust. This tends to site cycle and he admits that hemanipulates the area. Patientdenies any other new, changing or concerning skin lesions. Diagnosis ([id number]) 1.Skin, R lower lip, vermilion, shave biopsy: -Basal cell carcinoma of nodular and focally micronodular type Physical Exam A&O x 3, well-appearing, well-groomed, pleasant Above the waist skin exam including scalp, face, eyelids, lips, ears, upper extremities, hands, fingernails, chest, abdomen and back remarkable for: Significant improvement in background actinic damage on nose,there is a pinkpearly papule at theright nasal tip Desloge pearly focally crusted papules on the right and leftcheeks Pinkdaily macule at theright lower lip vermilion border many prince to light brown waxy stuck on papules on trunk Significant greasy scale throughout scalp, no notable background erythema Significant xerosis of bilateralarms, there are mildpink hyperkeratotic macules scattered onbilateral arms and dorsal aspectof hands on the leftdorsal hand there is an area of thin hemorrhagic crust with surrounding erythemaand mild edema Images 2023-09-16 15:27:58 Assessment/Plan 1.Basal cell carcinoma of skin - Discussed with patient and son, patient has multiplebasal cell carcinomas on clinical exam today (right lowerlip at vermilion border previously biopsied,right cheek, left cheek, andright nasal tip). We have had discussions in the past, patientdoes not want to proceed with anyinvasive treatmentof cancers that are not symptomatic or dangerousto life/health - Patient is bothered bysymptoms ofbasal cell at right lower lip, vermilion border. We reviewedMohs surgery as treatment of choice. Discussed with patient, I understand he would like to avoid surgery so we discussed additional options including less invasive and E D&C versus topical chemotherapy cream. Patient would like to proceed with trial of topical chemotherapy cream. He understands thatthis treatment is notFDA approved fornodular/micronodular basal cell carcinoma and has a lower cure rate thanED&Cand certainly Mohs surgery. Bothpatient and his son voiced understanding. - Patient toleratedthe Dex cream although developssignificant responseon his nosein the past. We discussed trial of5-fluorouracil plus calcipotrienecream, patient would like toproceedwith this. - [facility] Patient's son's phone number providedas contactto help facilitate with delivery ofmedication. - Application instructions reviewedin detail. Patient will apply Vaselineat least twice dailyand as needed to affected areaduring treatment as well asafterwards until fully healed. 2.Actinic keratoses - Chronic and multiple. Patientdeclines treatment as lesions are not bothersome to him 3.Superficial skin infection - Acute, left dorsal hand, suspect secondarily infected actinic keratosis -Start mupirocin 2% ointment, apply thin layer to affected area twice daily for 14 days 4.Seborrheic keratoses - chronic skin lesions, benign, reassurance provided 5.History of nonmelanoma skin cancer - Significant history of nonmelanoma skin cancer as well as multiple active/untreated basal cell skin cancers - counselled skin cancer warning signs, monthly skin self exams Follow-up 4 weeks Medications amLODIPine(amLODIPine 2.5 mg oral tablet), 2.5 mg= 1 tab, PO, Daily aspirin(aspirin 81 mg oral delayed release tablet), 81 mg= 1 tab, PO, Daily atorvastatin(atorvastatin 40 mg oral tablet), 40 mg= 1 tab, PO, Daily cholecalciferol, See Instructions citalopram(citalopram 10 mg oral tablet), 10 mg= 1 tab, PO, Daily clopidogrel(clopidogrel 75 mg oral tablet) cycloSPORINE ophthalmic(cycloSPORINE 0.05% ophthalmic emulsion), 1 drop, both eyes, q12h dorzolamide-timolol ophthalmic(dorzolamide-timolol 2.23%-0.68% ophthalmic solution), 1 drop, both eyes, bid dulaglutide(Trulicity Pen 4.5 mg/0.5 mL subcutaneous solution) ferrous sulfate(ferrous sulfate 325 mg (65 mg elemental iron) oral tablet), See Instructions finasteride(finasteride 5 mg oral tablet), 5 mg= 1 tab, PO, Daily glipiZIDE(glipiZIDE 10 mg oral tablet, extended release), 10 mg= 1 tab, PO, Daily lisinopril(lisinopril 5 mg oral tablet), 5 mg= 1 tab, PO, Daily metFORMIN(metFORMIN 1000 mg oral tablet), 1000 mg= 1 tab, PO, bid metoprolol(Metoprolol Succinate ER 50 mg oral tablet, extended release) mupirocin topical(mupirocin 2% topical ointment), 1 appl, topical, tid, 1 refills pantoprazole(pantoprazole 40 mg oral delayed release tablet), 40 mg= 1 tab, PO, Daily Allergies NKA Social History Smoking Status Never smoked cigarettes Electronic Signature on File Electronically Reviewed/Signed by: Christina Morales MD Author Signature Dt/Tm:09/16/2023 10:47 PM Department of Dermatology CS Patient Care team information Care Team Personnel Name: MD Ruby Jeffrey W Position: Referring DIRECT Member Role: Primary Care Provider Address: Address: [facility] [place] [address] [place] Care Team Related Persons Name: Dae HESTER III Address: [place] Address: home [address] [place] [id number]
[2023-11-04 15:00] LABS: Magnesium 1.4 mg/dl (1.7-2.4)
[2023-11-04] MEDS ORDERED: ONDANSETRON INJ 2 MG/ML 2 ML VIAL IV PRN (15:51)
[2023-11-04] MEDS ORDERED: CARBOHYDRATES FOR HYPOGLYCEMIA PO PRN (15:51)
[2023-11-04] MEDS ORDERED: GLUCAGON FOR INJ 1 MG VIAL SQ PRN (15:51)
[2023-11-04] MEDS ORDERED: DEXTROSE 50% 50 ML SYRINGE IV PRN (15:51)
[2023-11-04] MEDS ORDERED: ACETAMINOPHEN 325 MG TAB PO PRN (15:51)
[2023-11-04] MEDS ORDERED: GLUCOSE 40% GEL 15 GM TUBE PO PRN (15:51)
[2023-11-04] MEDS ORDERED: GLUCOSE 10 TAB/TUBE PO PRN (15:51)
[2023-11-04] MEDS ORDERED: ARTIFICIAL TEARS OP PRN (16:16)
[2023-11-04] MEDS: DORZOLAMIDE/TIMOLOL 22.3/6.8MG/ML 10 ML BTL OP ONE (17:00)
[2023-11-04] MEDS: INSULIN ASPART PER UNIT CHARGE SC SCH (17:36)
[2023-11-04] MEDS: LANTUS PER UNIT CHARGE SQ SCH (21:24)
[2023-11-04] MEDS: DORZOLAMIDE/TIMOLOL 22.3/6.8MG/ML 10 ML BTL OPB SCH (21:31)
[2023-11-04] MEDS: METOPROLOL SUCC 50MG EXT REL TAB PO SCH (21:32)
[2023-11-04] MEDS: ATORVASTATIN 40 MG TAB PO SCH (21:32)
--- NOTE | 2023-11-05 05:23 | XCELERA ---
[id number]
[2023-11-05 07:16] LABS: Basophils # (auto) 0.02 K/uL (0.00-0.20); Basophils % (auto) 0.5 %; Eosinophils # (auto) 0.01 K/uL (0.00-0.50); Eosinophils % (auto) 0.2 %; Hematocrit (blood only) 29.5 % (42.0-52.0); Hemoglobin 9.4 g/dl (14.0-18.0); Immature Granulocytes # (auto) 0.01 K/uL (0.01-0.20); Immature Granulocytes % (auto) 0.2 %; Lymphocytes # (auto) 0.43 K/uL (1.20-3.40); Lymphocytes % (auto) 10.4 %; Mean Corpuscular Hemoglobin 27.5 pg (25.0-34.0); Mean Corpuscular Hgb Conc 31.9 g/dL (32.0-36.0); Mean Corpuscular Volume 86.3 fL (80.0-100.0); Mean Platelet Volume 10.4 fL (9.4-12.4); Monocytes # (auto) 0.75 K/uL (0.11-0.59); Monocytes % (auto) 18.2 %; Neutrophils # (auto) 2.91 K/uL (1.40-6.50); Neutrophils % (auto) 70.5 %; Platelet Count 119 K/uL (130-400); RDW Coefficient of Variation 14.2 % (11.5-14.5); RDW Standard Deviation 44.5 fL (36.4-46.3); Red Blood Count 3.42 M/uL (4.70-6.10); White Blood Count 4.13 K/ul (4.8-10.8)
[2023-11-05 07:41] LABS: BUN Creatinine Ratio 9.6 (10-20); Calcium 8.2 mg/dl (8.6-10.3); Creatinine Clr Calc Pharmacy 32.3 ml/min; Est GFR (African American) 36.7 ml/min; Est GFR (Non-African American) 31.6 ml/min; Magnesium 1.5 mg/dl (1.7-2.4); Potassium 4.4 mmol/L (3.5-5.1)
[2023-11-05 07:45] LABS: Estimated Average Glucose 154 mg/dl
[2023-11-05] MEDS: MAGNESIUM SULFATE / D5W 1 GM/100 ML BAG IV SCH (09:04)
[2023-11-05] MEDS: CITALOPRAM 20 MG TAB PO SCH (09:20)
[2023-11-05] MEDS: FINASTERIDE 5 MG TAB PO SCH (09:20)
[2023-11-05] MEDS: METOPROLOL SUCC 25MG EXT REL TAB PO SCH (09:20)
[2023-11-05] MEDS: PANTOprazole 40 MG TAB PO SCH (09:20)
[2023-11-05] MEDS: FERROUS SULFATE 325 MG TAB PO SCH (09:21)
[2023-11-05] MEDS: lisinopril 5 MG TAB PO SCH (09:21)
[2023-11-05] MEDS: ASPIRIN 81 MG ECTAB PO SCH (09:21)
--- NOTE | 2023-11-05 13:50 | Hospitalist Progress Note ---
Date of Service November 05, 2023 Assessment & Plan (1) COVID: Plan: - COVID positive on arrival. Worsening cough, weakness, and [place] the evening of 11/02. Not hypoxic on arrival. - Chest x-ray revealed small pleural effusions with mild bibasilar consolidation and cardiomegaly with pulmonary edema. Concern for COVID-pneumonia - Chest CTA revealed no evidence of pulmonary embolus. - Isolation precautions - Continuous pulse oximetry - Supplemental oxygen as needed - Remdesivir 100 mg IV daily, last dose 11/08/23. - Tessalon Perles 100 mg p.o. as needed for cough (2) Elevated troponin: Plan: - Elevated troponin on presentation, downtrending. -- Negative cardiac symptoms on presentation, other than chest pain which patient attributes to recent coughing fits. -- Elevated troponin most likely secondary to demand ischemia given extensive cardiac history. 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 Moderately to severely reduced systolic function. Mild concentric left ventricular hypertrophy. No significant valvular abnormalities visualized. (4) DM (diabetes mellitus), type 2 with neurological complications: Plan: - HgbA1c 11/05/23 at 7.0%. A1c from 02/03/2023 was at 6.5%. - Glucose 154 on admission - Hold metformin, glipizide, dulaglutide - Lantus 10 u BID while inpatient - SSI; with target BSG range 110-140mg/dL, CF 25, carb ratio 8 - T2DM diet - BSG ACHS - Adjust regimen as needed (5) Stented coronary artery: Plan: - S/p 5 coronary stents (with the last being in August 2022) -Chronic and stable continue aspirin daily - Plavix every other day (given on Friday 11/03) (6) Hypomagnesemia: Plan: - Magnesium 1.2 on arrival, repleted (7) Sepsis: Plan: - Patient presented tachycardic and febrile on arrival with pulmonary source (viral). - Lactate down trended from 2.6-1.9. Procalcitonin WNL. - Given pulmonary edema identified on chest x-ray and no hypotension and ED, fluid bolus was deferred. - Received 1 dose of empiric cefepime in ED. No leukocytosis, negative procal, and positive viral illness --> continue to defer further antibiotics at this time. 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 MCV WNL - Hemodynamically stable at this time. Continue to monitor. 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 Patient reports that he continues to have a dry cough and shortness of breath with activity. Denies sputum production, chest pain, SOB at rest, nausea, urinary symptoms, or abdominal symptoms. I personally had a very thorough discussion with the son about the hospital course and answered all of his questions. Physical Exam Physical Exam: General: No acute distress, nondiaphoretic, well-developed, well-nourished. Skin: The skin was without rashes, erythema, edema, or bruising. Cardiac: Regular rate and rhythm without murmurs gallops or rubs. Pulm: Clear to auscultation bilaterally without wheezes, rales or rhonchi. No retractions or accessory muscle use. 90% on room air. Abdominal: Positive bowel sounds x 4. Soft, nontender, without masses or organomegaly. No guarding or rebound tenderness. Neuro: A&O x3. No focal neurological deficits. Results & Data Results & Data Vital Signs (Past 12 Hours) Vital Signs Temp Pulse Pulse Resp BP Pulse Ox O2 Del Method 11/05/23 11:51 37.4 C 78 20 120/65 90 Room Air 11/05/23 08:15 37.3 C 86 22 130/71 91 Room Air 11/05/23 07:50 88 11/05/23 03:07 36.8 C 83 18 130/69 93 Room Air Laboratory Results Reviewed CBC Reviewed chemistries Reviewed troponin Reviewed echocardiogram Diagnostic Findings Echocardiogram 11/05/2023: Interpretation summary 1. Top normal left ventricular size with moderately to severely reduced systolic function. EF 30-35%. Global hypokinesis. Mild concentric left ventricular hypertrophy. 2. No significant valvular abnormalities visualized. 3. Normal estimated right ventricular systolic pressure. Estimated RVSP 38 mmHg. 4. Technically difficult study, enhanced with IV Definity. 5. No prior study available for comparison. 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
[2023-11-05] MEDS: REMDESIVIR 200 MG in SODIUM CHLORIDE 0.9% 210 ML IV ONE (16:50)
[2023-11-06 07:04] LABS: Basophils # (auto) 0.02 K/uL (0.00-0.20); Basophils % (auto) 0.4 %; Eosinophils # (auto) 0.05 K/uL (0.00-0.50); Hematocrit (blood only) 31.2 % (42.0-52.0); Hemoglobin 10.3 g/dl (14.0-18.0); Immature Granulocytes # (auto) 0.01 K/uL (0.01-0.20); Immature Granulocytes % (auto) 0.2 %; Lymphocytes # (auto) 1.13 K/uL (1.20-3.40); Lymphocytes % (auto) 21.9 %; Mean Corpuscular Hemoglobin 27.8 pg (25.0-34.0); Mean Corpuscular Volume 84.1 fL (80.0-100.0); Mean Platelet Volume 10.6 fL (9.4-12.4); Monocytes # (auto) 0.73 K/uL (0.11-0.59); Monocytes % (auto) 14.1 %; Neutrophils # (auto) 3.23 K/uL (1.40-6.50); Neutrophils % (auto) 62.4 %; Platelet Count 122 K/uL (130-400); RDW Coefficient of Variation 14.4 % (11.5-14.5); RDW Standard Deviation 44.5 fL (36.4-46.3); Red Blood Count 3.71 M/uL (4.70-6.10); White Blood Count 5.17 K/ul (4.8-10.8)
[2023-11-06] MEDS: CLOPIDOGREL BISULFATE 75 MG TAB PO SCH (08:03)
[2023-11-06 08:58] LABS: Calcium 8.3 mg/dl (8.6-10.3); Potassium 4.6 mmol/L (3.5-5.1)
[2023-11-06 09:03] LABS: BUN Creatinine Ratio 10.3 (10-20); Creatinine Clr Calc Pharmacy 26.1 ml/min; Est GFR (African American) 28.1 ml/min; Est GFR (Non-African American) 24.3 ml/min
[2023-11-06 09:34] LABS: Magnesium 1.9 mg/dl (1.7-2.4)
--- NOTE | 2023-11-06 09:40 | Electrocardiogram Report ---
Test Reason : Blood Pressure : / mmHG Vent. Rate : 101 BPM Atrial Rate : 101 BPM P-R Int : 174 ms QRS Dur : 094 ms QT Int : 338 ms P-R-T Axes : 045 -12 062 degrees QTc Int : 438 ms Sinus tachycardia Possible Left atrial enlargement Left ventricular hypertrophy Inferior infarct (cited on or before 07-JAN-2008) Anterior infarct , age undetermined Abnormal ECG When compared with ECG of 07-JAN-2008 15:17, Vent. rate has increased BY 45 BPM Anterior infarct is now Present Confirmed by Virgil Vaughan ([id number]) on 11/06/2023 9:40:04 AM Referred By: Ag potts [facility] Confirmed By:Virgil Vaughan
[2023-11-06] MEDS: REMDESIVIR 100 MG in SODIUM CHLORIDE 0.9% 230 ML IV SCH (12:15)
[2023-11-06] MEDS ORDERED: ARTIFICIAL TEARS OPB PRN (19:07)
--- NOTE | 2023-11-06 19:14 | Hospitalist Progress Note ---
Date of Service November 06, 2023 Assessment & Plan (1) COVID: Plan: - COVID positive on arrival. Worsening cough, weakness, and S[place] the evening of 11/02. Not hypoxic on arrival. - Chest x-ray revealed small pleural effusions with mild bibasilar consolidation and cardiomegaly with pulmonary edema. Concern for COVID-pneumonia - Chest CTA revealed no evidence of pulmonary embolus. - Isolation precautions - Continuous pulse oximetry - Supplemental oxygen as needed - Remdesivir 100 mg IV daily, last dose 11/08/23. - Tessalon Perles 100 mg p.o. as needed for cough (2) Elevated troponin: Plan: - Elevated troponin on presentation, downtrending. -- Negative cardiac symptoms on presentation, other than chest pain which patient attributes to recent coughing fits. -- Elevated troponin most likely secondary to demand ischemia given extensive cardiac history. 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 Moderately to severely reduced systolic function. Mild concentric left ventricular hypertrophy. No significant valvular abnormalities visualized. (4) DM (diabetes mellitus), type 2 with neurological complications: Plan: - HgbA1c 11/05/23 at 7.0%. A1c from 02/03/2023 was at 6.5%. - Glucose 154 on admission - Hold metformin, glipizide, dulaglutide - Lantus 10 u BID while inpatient - SSI; with target BSG range 110-140mg/dL, CF 25, carb ratio 8 - T2DM diet - BSG ACHS - Adjust regimen as needed (5) Stented coronary artery: Plan: - S/p 5 coronary stents (with the last being in August 2022) -Chronic and stable continue aspirin daily - Plavix every other day (given on Friday 11/03) (6) Hypomagnesemia: Plan: - Magnesium 1.2 on arrival, repleted (7) Sepsis: Plan: - Patient presented tachycardic and febrile on arrival with pulmonary source (viral). - Lactate down trended from 2.6-1.9. Procalcitonin WNL. - Given pulmonary edema identified on chest x-ray and no hypotension and ED, fluid bolus was deferred. - Received 1 dose of empiric cefepime in ED. No leukocytosis, negative procal, and positive viral illness --> continue to defer further antibiotics at this time. 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 MCV WNL - Hemodynamically stable at this time. Continue to monitor. 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 Patient reports that he continues to have dry cough, however his shortness of breath with activity is improved today compared to yesterday. We discussed acute rehab upon discharge prior to return to [facility]. He was agreeable to this. He denies sputum production, chest pain, shortness of breath at rest, nausea, abdominal symptoms, or urinary symptoms. Physical Exam Physical Exam: General: No acute distress, nondiaphoretic, well-developed, well-nourished. Skin: The skin was without rashes, erythema, edema, or bruising. Cardiac: Regular rate and rhythm without murmurs gallops or rubs. Pulm: Clear to auscultation bilaterally without wheezes, rales or rhonchi. No r etractions or accessory muscle use. 92% on room air. Abdominal: Positive bowel sounds x 4. Soft, nontender, without masses or organomegaly. No guarding or rebound tenderness. Neuro: A&O x3. No focal neurological deficits. Results & Data Results & Data Vital Signs (Past 12 Hours) Vital Signs Temp Pulse Pulse Resp BP Pulse Ox O2 Del Method 11/06/23 17:42 36.7 C 66 20 140/74 92 Room Air 11/06/23 16:00 70 11/06/23 12:00 37.0 C 62 18 135/72 93 Room Air 11/06/23 08:30 70 11/06/23 08:00 36.9 C 60 18 146/78 H 92 Room Air Laboratory Results Reviewed CBC Reviewed chemistries PG Care Time/CCT Total # of Minutes Spent Total Time Spent with Patient: Total time spent is greater than 50% in coordination of care (as documented) at patient's floor/unit and/or counseling patient: Coding Level of Care Code 83169 SUB INP/OBS CARE 2/35MIN Diagnoses COVID U07.1 Elevated troponin R79.89 Pulmonary edema J81.1 DM (diabetes mellitus), type 2 with neurological complications E11.49 Stented coronary artery Z95.5 Hypomagnesemia E83.42 Sepsis A41.9 HTN (hypertension) I10 CKD stage 3b, 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
[2023-11-06] MEDS: MUPIROCIN 2% OINT 22 GM TUBE EXT SCH (22:12)
[2023-11-06] MEDS ORDERED: ARTIFICIAL TEARS OP PRN (23:01)
[2023-11-07 06:05] LABS: Basophils # (auto) 0.02 K/uL (0.00-0.20); Basophils % (auto) 0.4 %; Eosinophils # (auto) 0.16 K/uL (0.00-0.50); Eosinophils % (auto) 3.5 %; Hematocrit (blood only) 33.1 % (42.0-52.0); Hemoglobin 10.7 g/dl (14.0-18.0); Immature Granulocytes # (auto) 0.01 K/uL (0.01-0.20); Immature Granulocytes % (auto) 0.2 %; Lymphocytes # (auto) 1.22 K/uL (1.20-3.40); Lymphocytes % (auto) 26.8 %; Mean Corpuscular Hemoglobin 27.4 pg (25.0-34.0); Mean Corpuscular Hgb Conc 32.3 g/dL (32.0-36.0); Mean Corpuscular Volume 84.7 fL (80.0-100.0); Mean Platelet Volume 10.1 fL (9.4-12.4); Monocytes # (auto) 0.58 K/uL (0.11-0.59); Monocytes % (auto) 12.7 %; Neutrophils # (auto) 2.56 K/uL (1.40-6.50); Neutrophils % (auto) 56.4 %; Platelet Count 123 K/uL (130-400); RDW Coefficient of Variation 14.4 % (11.5-14.5); RDW Standard Deviation 43.8 fL (36.4-46.3); Red Blood Count 3.91 M/uL (4.70-6.10); White Blood Count 4.55 K/ul (4.8-10.8)
[2023-11-07 06:11] LABS: BUN Creatinine Ratio 12.9 (10-20); Calcium 8.2 mg/dl (8.6-10.3); Creatinine Clr Calc Pharmacy 26.1 ml/min; Est GFR (African American) 28.3 ml/min; Est GFR (Non-African American) 24.4 ml/min; Potassium 4.6 mmol/L (3.5-5.1)
[2023-11-07] MEDS: LACTATED RINGER'S 1,000 ML IV SCH (13:22)
--- NOTE | 2023-11-07 14:52 | Hospitalist Progress Note ---
Date of Service November 07, 2023 Assessment & Plan (1) COVID: Plan: - COVID positive on arrival. Worsening cough, weakness, and [place] the evening of 11/02. Not hypoxic on arrival. - Chest x-ray revealed small pleural effusions with mild bibasilar consolidation and cardiomegaly with pulmonary edema. - Chest CTA revealed no evidence of pulmonary embolus. - Isolation precautions - Continuous pulse oximetry - Supplemental oxygen as needed - Remdesivir 100 mg IV daily, last dose 11/08/23. - Tessalon Perles 100 mg p.o. as needed for cough (2) Elevated troponin: Plan: - Elevated troponin on presentation, downtrending. -- Negative cardiac symptoms on presentation, other than chest pain which patient attributes to recent coughing fits. -- Elevated troponin most likely secondary to demand ischemia given extensive cardiac history. 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 Moderately to severely reduced systolic function. Mild concentric left ventricular hypertrophy. No significant valvular abnormalities visualized. (4) Sepsis: Plan: - Patient presented tachycardic and febrile on arrival with pulmonary source (viral). - Lactate down trended from 2.6-1.9. Procalcitonin WNL. - Given pulmonary edema identified on chest x-ray and no hypotension and ED, fluid bolus was deferred. - Received 1 dose of empiric cefepime in ED. No leukocytosis, negative procal, and positive viral illness --> continue to defer further antibiotics at this time. (5) Hypomagnesemia: Plan: - Magnesium 1.2 on arrival, repleted (6) DM (diabetes mellitus), type 2 with neurological complications: Plan: - HgbA1c 11/05/23 at 7.0%. A1c from 02/03/2023 was at 6.5%. - Glucose 154 on admission - Hold metformin, glipizide, dulaglutide - Lantus 10 u BID while inpatient - SSI; with target BSG range 110-140mg/dL, CF 25, carb ratio 8 - T2DM diet - BSG ACHS - Adjust regimen as needed (7) Stented coronary artery: Plan: - S/p 5 coronary stents (with the last being in August 2022) - Chronic and stable continue aspirin daily - Plavix every other day (given on Friday 11/03) (8) HTN (hypertension): Plan: - Continue metoprolol and lisinopril - Hold amlodipine for now (potential need for diuresis; lower extremities without edema at this time) (9) CKD stage 3b, 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: Plan: - Chronic and stable on admission: BUN 22, creatinine 1.65 (baseline 1.5), EGFR 37.0 - Avoid nephrotoxic agents where possible - Continue finasteride/iron supplementation (10) Anemia: Plan: - Mild; Hgb 10.6 on arrival. MCV WNL - Hemodynamically stable at this time. Continue to monitor. 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 He reports that his cough has improved a little compared to yesterday. His SOB with exertion is about the same. He has a good appetite. No complaints at this time. Denies sputum production, chest pain, shortness of breath at rest, nausea, abdominal symptoms, or urinary symptoms. Physical Exam Physical Exam: General: No acute distress, nondiaphoretic, well-developed, well-nourished. Skin: The skin was without rashes, erythema, edema, or bruising. Cardiac: Regular rate and rhythm without murmurs gallops or rubs. Pulm: Clear to auscultation bilaterally without wheezes, rales or rhonchi. No retractions or accessory muscle use. 96% on room air. Abdominal: Positive bowel sounds x 4. Soft, nontender, without masses or organomegaly. No guarding or rebound tenderness. Neuro: A&O x3. No focal neurological deficits. Results & Data Results & Data Vital Signs (Past 12 Hours) Vital Signs Temp Pulse Pulse Resp BP BP Pulse Ox 11/07/23 12:42 36.7 C 67 18 126/65 93 11/07/23 08:46 36.8 C 65 18 144/89 H 96 11/07/23 08:00 11/07/23 08:00 60 11/07/23 03:18 36.8 C 71 18 118/63 92 O2 Del Method 11/07/23 12:42 Room Air 11/07/23 08:46 Room Air 11/07/23 08:00 Room Air 11/07/23 08:00 11/07/23 03:18 Room Air Laboratory Results Reviewed CBC Reviewed CMP PG Care Time/CCT Total # of Minutes Spent Total Time Spent with Patient: Total time spent is greater than 50% in coordination of care (as documented) at patient's floor/unit and/or counseling patient: Coding Level of Care Code 70023 SUB INP/OBS CARE 2/35MIN Diagnoses COVID U07.1 Elevated troponin R79.89 Pulmonary edema J81.1 Sepsis A41.9 Hypomagnesemia E83.42 DM (diabetes mellitus), type 2 with neurological complications E11.49 Stented coronary artery Z95.5 HTN (hypertension) I10 CKD stage 3b, 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
[2023-11-07] MEDS: BENZONATATE 100 MG CAPSULE PO PRN (20:58)
[2023-11-08 06:27] LABS: BUN Creatinine Ratio 16.4 (10-20); Calcium 8.4 mg/dl (8.6-10.3); Creatinine Clr Calc Pharmacy 33.3 ml/min; Est GFR (African American) 37.9 ml/min; Est GFR (Non-African American) 32.7 ml/min; Hemoglobin 10.5 g/dl (14.0-18.0); Mean Corpuscular Hemoglobin 27.9 pg (25.0-34.0); Mean Corpuscular Hgb Conc 32.8 g/dL (32.0-36.0); Mean Corpuscular Volume 85.1 fL (80.0-100.0); Mean Platelet Volume 10.2 fL (9.4-12.4); Platelet Count 124 K/uL (130-400); Potassium 4.5 mmol/L (3.5-5.1); RDW Coefficient of Variation 14.2 % (11.5-14.5); RDW Standard Deviation 44.3 fL (36.4-46.3); Red Blood Count 3.76 M/uL (4.70-6.10); White Blood Count 5.19 K/ul (4.8-10.8)
--- NOTE | 2023-11-08 17:31 | Hospitalist Progress Note ---
Date of Service November 08, 2023 Assessment & Plan (1) COVID: Plan: - COVID positive on arrival. Worsening cough, weakness, and [place] the evening of 11/02. Not hypoxic on arrival. - Chest x-ray revealed small pleural effusions with mild bibasilar consolidation and cardiomegaly with pulmonary edema. - Chest CTA revealed no evidence of pulmonary embolus. - Isolation precautions - Continuous pulse oximetry - Supplemental oxygen as needed - Remdesivir 100 mg IV daily, last dose 11/08/23. - Tessalon Perles 100 mg p.o. 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 Moderately to severely reduced systolic function. Mild concentric left ventricular hypertrophy. No significant valvular abnormalities visualized. - BNP rechecked today due to some crackles in lung bases. Elevated at 709. -- Start Lasix 40 mg IV BID. Monitor output. (3) Elevated troponin: Plan: - Elevated troponin on presentation, downtrending. -- Negative cardiac symptoms on presentation, other than chest pain which patient attributes to recent coughing fits. -- Elevated troponin most likely secondary to demand ischemia given extensive cardiac history. - Discussed case with cardiology, and agree that given no ACS symptoms and high bleed risk (history of CVA with hemorrhagic transition) continue to defer anticoagulation at this time - Continuous telemetry monitoring (4) Sepsis: Plan: - Patient presented tachycardic and febrile on arrival with pulmonary source (viral). - Lactate down trended from 2.6-1.9. Procalcitonin WNL. - Given pulmonary edema identified on chest x-ray and no hypotension and ED, fluid bolus was deferred. - Received 1 dose of empiric cefepime in ED. No leukocytosis, negative procal, and positive viral illness --> continue to defer further antibiotics at this time. (5) Hypomagnesemia: Plan: - Magnesium 1.2 on arrival, repleted (6) DM (diabetes mellitus), type 2 with neurological complications: Plan: - HgbA1c 11/05/23 at 7.0%. A1c from 02/03/2023 was at 6.5%. - Glucose 154 on admission - Hold metformin, glipizide, dulaglutide - Lantus 10 u BID while inpatient - SSI; with target BSG range 110-140mg/dL, CF 25, carb ratio 8 - T2DM diet - BSG ACHS - Adjust regimen as needed (7) Stented coronary artery: Plan: - S/p 5 coronary stents (with the last being in August 2022) - Chronic and stable continue aspirin daily - Plavix every other day (given on Friday 11/03) (8) HTN (hypertension): Plan: - Continue metoprolol and lisinopril - Resumed amlodipine 11/08/2023 (9) CKD stage 3b, 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: Plan: - Chronic and stable on admission: BUN 22, creatinine 1.65 (baseline 1.5), EGFR 37.0 - Avoid nephrotoxic agents where possible - Continue finasteride/iron supplementation (10) Anemia: Plan: - Mild; Hgb 10.6 on arrival. MCV WNL - Hemodynamically stable at this time. Continue to monitor. 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 Started Lasix IV. Reviewed blood pressures. Resumed amlodipine. Updated patient's son on current status and plan. CODE STATUS: DNR/DNI VTE PPx: SCDs (patient is a high bleeding risk due to history of CVA with hemorrhagic transformation) Admission and Anticipated Discharge Date Admission Date: November 04, 2023 Supervising Physician Co-Signing Physician Notes The patient was not seen by me. The chart was reviewed. Case discussed with MARÍA Tellez. Agree with assessment and plan Physical Exam Physical Exam: General: No acute distress, nondiaphoretic, well-developed, well-nourished. Skin: The skin was without rashes, erythema, edema, or bruising. Cardiac: Regular rate and rhythm without murmurs gallops or rubs. Pulm: Some crackles at the lung bases bilaterally. No retractions or accessory muscle use. 94% on room air. Abdominal: Positive bowel sounds x 4. Soft, nontender, without masses or organomegaly. No guarding or rebound tenderness. Neuro: A&O x3. No focal neurological deficits. Results & Data Results & Data Vital Signs (Past 12 Hours) Vital Signs Temp Pulse Pulse Resp BP Pulse Ox O2 Del Method 11/08/23 16:30 36.7 C 66 18 137/78 94 Room Air 11/08/23 15:29 60 11/08/23 12:00 36.9 C 65 18 149/78 H 96 Room Air 11/08/23 08:00 Room Air 11/08/23 08:00 62 11/08/23 07:40 36.6 C 64 18 159/79 H 95 Room Air Laboratory Results Reviewed CBC Reviewed chemistries PG Care Time/CCT Total # of Minutes Spent Total Time Spent with Patient: Total time spent is greater than 50% in coordination of care (as documented) at patient's floor/unit and/or counseling patient: Coding Level of Care Code 24810 SUB INP/OBS CARE 3/50MIN Diagnoses COVID U07.1 Pulmonary edema J81.1 Elevated troponin R79.89 Sepsis A41.9 Hypomagnesemia E83.42 DM (diabetes mellitus), type 2 with neurological complications E11.49 Stented coronary artery Z95.5 HTN (hypertension) I10 CKD stage 3b, 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
[2023-11-08] MEDS: FUROSEMIDE 40 MG/4 ML VIAL IV SCH (17:44)
[2023-11-08] MEDS ORDERED: FUROSEMIDE 40 MG/4 ML VIAL IV SCH (21:00)
[2023-11-09 06:43] LABS: Hemoglobin 10.6 g/dl (14.0-18.0); Mean Corpuscular Hemoglobin 27.9 pg (25.0-34.0); Mean Corpuscular Hgb Conc 33.1 g/dL (32.0-36.0); Mean Corpuscular Volume 84.2 fL (80.0-100.0); Mean Platelet Volume 10.8 fL (9.4-12.4); Platelet Count 134 K/uL (130-400); RDW Coefficient of Variation 14.4 % (11.5-14.5); RDW Standard Deviation 44.1 fL (36.4-46.3); White Blood Count 5.45 K/ul (4.8-10.8)
[2023-11-09 06:48] LABS: BUN Creatinine Ratio 16.3 (10-20); Calcium 8.6 mg/dl (8.6-10.3); Creatinine Clr Calc Pharmacy 32.3 ml/min; Est GFR (African American) 36.2 ml/min; Est GFR (Non-African American) 31.2 ml/min; Potassium 4.5 mmol/L (3.5-5.1)
[2023-11-09] MEDS: amLODIPine BESYLATE 5 MG TAB PO SCH (08:38)
[2023-11-09] MEDS: FUROSEMIDE 40 MG/4 ML VIAL IV SCH (09:13)
--- NOTE | 2023-11-09 17:43 | Hospitalist Progress Note ---
Date of Service November 09, 2023 Assessment & Plan (1) COVID: Plan: - COVID positive on arrival. Worsening cough, weakness, and [place] the evening of 11/02. Not hypoxic on arrival. - Chest x-ray revealed small pleural effusions with mild bibasilar consolidation and cardiomegaly with pulmonary edema. - Chest CTA revealed no evidence of pulmonary embolus. - Isolation precautions - Continuous pulse oximetry - Supplemental oxygen as needed - Remdesivir 100 mg IV daily, last dose 11/08/23. - Tessalon Perles 100 mg p.o. 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 Moderately to severely reduced systolic function. Mild concentric left ventricular hypertrophy. No significant valvular abnormalities visualized. - BNP rechecked today due to some crackles in lung bases. Elevated at 709. -- 2 doses of Lasix 40 mg IV given. Increased urine output. Lungs are clear to auscultation. Monitor kidney function in AM. (3) Elevated troponin: Plan: - Elevated troponin on presentation, downtrending. -- Negative cardiac symptoms on presentation, other than chest pain which patient attributes to recent coughing fits. -- Elevated troponin most likely secondary to demand ischemia given extensive cardiac history. - Discussed case with cardiology, and agree that given no ACS symptoms and high bleed risk (history of CVA with hemorrhagic transition) continue to defer anticoagulation at this time - Continuous telemetry monitoring (4) Sepsis: Plan: - Patient presented tachycardic and febrile on arrival with pulmonary source (viral). - Lactate down trended from 2.6-1.9. Procalcitonin WNL. - Given pulmonary edema identified on chest x-ray and no hypotension and ED, fluid bolus was deferred. - Received 1 dose of empiric cefepime in ED. No leukocytosis, negative procal, and positive viral illness --> continue to defer further antibiotics at this time. (5) Hypomagnesemia: Plan: - Magnesium 1.2 on arrival, repleted (6) DM (diabetes mellitus), type 2 with neurological complications: Plan: - HgbA1c 11/05/23 at 7.0%. A1c from 02/03/2023 was at 6.5%. - Glucose 154 on admission - Hold metformin, glipizide, dulaglutide - Lantus 10 u BID while inpatient - SSI; with target BSG range 110-140mg/dL, CF 25, carb ratio 8 - T2DM diet - BSG ACHS - Adjust regimen as needed (7) Stented coronary artery: Plan: - S/p 5 coronary stents (with the last being in August 2022) - Chronic and stable continue aspirin daily - Plavix every other day (given on Friday 11/03) (8) HTN (hypertension): Plan: - Continue metoprolol and lisinopril - Resumed amlodipine 11/08/2023 (9) CKD stage 3b, 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: Plan: - Chronic and stable on admission: BUN 22, creatinine 1.65 (baseline 1.5), EGFR 37.0 - Avoid nephrotoxic agents where possible - Continue finasteride/iron supplementation (10) Anemia: Plan: - Mild; Hgb 10.6 on arrival. MCV WNL - Hemodynamically stable at this time. Continue to monitor. 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 CODE STATUS: DNR/DNI VTE PPx: SCDs (patient is a high bleeding risk due to history of CVA with hemorrhagic transformation) Admission and Anticipated Discharge Date Admission Date: November 04, 2023 Subjective Patient seen and evaluated at bedside with son and Dr. Cortez. He reports his symptoms are about the same, with minimal cough and some shortness of breath with exertion. He has no complaints at this time. He feels ready to return to [facility]. We discussed that we would like to further evaluate his kidney function in the morning, but pending it remains stable or improves, he can return to [facility] tomorrow. Patient is agreeable to this plan. Physical Exam Physical Exam: General: No acute distress, nondiaphoretic, well-developed, well-nourished. Skin: The skin was without rashes, erythema, edema, or bruising. Cardiac: Regular rate and rhythm without murmurs gallops or rubs. Pulm: Clear to auscultation bilaterally without wheezes, rales or rhonchi. No retractions or accessory muscle use. 94% on room air. Abdominal: Positive bowel sounds x 4. Soft, nontender, without masses or organomegaly. No guarding or rebound tenderness. Neuro: A&O x3. No focal neurological deficits. Results & Data Results & Data Vital Signs (Past 12 Hours) Vital Signs Temp Pulse Pulse Resp BP Pulse Ox O2 Del Method 11/09/23 14:59 66 11/09/23 12:16 36.7 C 58 L 17 138/75 94 Room Air 11/09/23 10:31 Room Air 11/09/23 07:38 54 L Laboratory Results Reviewed CBC Reviewed chemistries Reviewed I's and O's PG Care Time/CCT Total # of Minutes Spent Total Time Spent with Patient: Total time spent is greater than 50% in coordination of care (as documented) at patient's floor/unit and/or counseling patient: Coding Level of Care Code 47924 SUB INP/OBS CARE 2/35MIN Diagnoses COVID U07.1 Pulmonary edema J81.1 Elevated troponin R79.89 Sepsis A41.9 Hypomagnesemia E83.42 DM (diabetes mellitus), type 2 with neurological complications E11.49 Stented coronary artery Z95.5 HTN (hypertension) I10 CKD stage 3b, 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
[2023-11-10 06:30] LABS: BUN Creatinine Ratio 17.1 (10-20); Calcium 8.8 mg/dl (8.6-10.3); Creatinine Clr Calc Pharmacy 31.7 ml/min; Est GFR (African American) 35.5 ml/min; Est GFR (Non-African American) 30.6 ml/min; Potassium 4.5 mmol/L (3.5-5.1)
[2023-11-10 06:34] LABS: Hematocrit (blood only) 32.6 % (42.0-52.0); Hemoglobin 10.8 g/dl (14.0-18.0); Mean Corpuscular Hemoglobin 27.8 pg (25.0-34.0); Mean Corpuscular Hgb Conc 33.1 g/dL (32.0-36.0); Mean Corpuscular Volume 83.8 fL (80.0-100.0); Mean Platelet Volume 10.6 fL (9.4-12.4); Platelet Count 142 K/uL (130-400); RDW Coefficient of Variation 14.2 % (11.5-14.5); RDW Standard Deviation 43.4 fL (36.4-46.3); Red Blood Count 3.89 M/uL (4.70-6.10); White Blood Count 5.36 K/ul (4.8-10.8)
--- NOTE | 2023-11-10 17:41 | Discharge Summary ---
Date of Service November 10, 2023 Admission HPI Per Admitting Provider Walter is an 88-year-old male with PMH of HTN, AL, cardiac arrest, dyslipidemia, BPH, CVA, stented coronary artery, CAD, and T2DM. He presented for worsening cough, weakness, and SULLIVAN that started the evening of 11/02. Patient reports that he had a hard time sleeping that night due to cough. His is at the bedside, as well as his son/POA (Anatoly) who provides most of the history. Patient was reportedly winded when walking to dinner the evening prior. He was then feeling "groggy" during dinner, and endorsed generalized weakness at that time. He denies SOB at rest, or positional SOB such as when he lays flat. He denies history of heart failure; does note he was eating a salty dinner last night fries/fried fish sandwich. No supplemental oxygen use at home. Patient reports he is up-to-date on his COVID shots and booster. He has never had COVID before to his knowledge. He does have an extensive history of AL/CVA; cardiac r arrest in 1995; s/p 5 coronary stents with the last being in August 2023. He notes that he did have anesthesia and a skin biopsy in his left hand at a dermatology appointment on 11/02, and is unsure if this contributed to his symptoms of grogginess. Patient did not take his regular morning medications today; no recent change in medications. Patient is hypertensive at 159/78, and mildly febrile at 38.1 C at time of admission; SpO2 92% on room air. ED course: Acetaminophen 1000 mg IV Rocephin 2000 mg IV NSS 1000 mL IV Magnesium sulfate 1 g IV ROS: Patient endorses fatigue, some dizziness/lightheadedness, dry cough, chest achiness (which patient attributes to dry cough), SULLIVAN, and generalized weakness. Patient denies fever, chills, nightsweats, chest pain (anytime after stent placement in August), pleuritic CP at present, hemoptysis, pain or pressure in the left arm/shoulder/jaw, back pain, abdominal pain, N/V/D, change in urinary or bowel habits, or numbness/pain/tingling in the arms or legs bilaterally. Principal Diagnosis covid viral infection metabolic encephalopathy CKD3 Discharge Exam awake, no shortness of breath, lungs are clear Discharge Data Allergies Allergy/AdvReac Type Severity Reaction Status Date / Time No Known Allergies Allergy Mild Unverified 10/06/23 11:00 Consultations 11/04/23 11:23 ED Decision to Admit Stat Ordered Studies 11/04/23 09:19 CT angio chest PE protocol Stat Hospital Course (1) COVID: - COVID positive on arrival. Worsening cough, weakness, and SULLIVAN the evening of 11/02. Not hypoxic on arrival. - Chest x-ray revealed small pleural effusions with mild bibasilar consolidation and cardiomegaly with pulmonary edema. - Chest CTA revealed no evidence of pulmonary embolus. - Remdesivir 100 mg IV daily, last dose 11/08/23. 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 Moderately to severely reduced systolic function. Mild concentric left ventricular hypertrophy. No significant valvular abnormalities visualized. - -was given lasix has CKD3 stable (3) Elevated troponin: - Elevated troponin on presentation, downtrending. -- Negative cardiac symptoms on presentation, other than chest pain which patient attributes to recent coughing fits. -- Elevated troponin most likely secondary to demand ischemia given extensive cardiac history. - Discussed case with cardiology, and agree that given no ACS symptoms and high bleed risk (history of CVA with hemorrhagic transition) continue to defer anticoagulation at this time - (4) Sepsis: -sepsis from covid infection now resolved (5) Hypomagnesemia: - Magnesium 1.2 on arrival, repleted (6) DM (diabetes mellitus), type 2 with neurological complications: - HgbA1c 11/05/23 at 7.0%. A1c from 02/03/2023 was at 6.5%. 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 MCV WNL - Hemodynamically stable at this time. Continue to monitor. 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 Discharge Plan Discharge Items [facility] Disposition: [facility] Reason For Visit: COUGH, WEAKNESS, SULLIVAN Discharge Diagnosis: weakness due to covid 19 infection Activity: Resume your previous activity Non-emergency contact: Primary Care Provider Call non-emergency contact if: your symptoms worsen Follow-up/Referrals: ,Jeremy Sainz MD [Primary Care Provider] - Diet: Heart Healthy Ambulatory Orders: Basic Metabolic Panel (Routine) Timeframe: 3 Days Location: Determined by Patient Ordered By: Jagdeep Cortez Addtl Attending Provider Instructions: you are recovering from Covid 19 infection, you can expect a bit of fatigue over the next few weeks, please eat and rest as you recover if you develop shortness of breath at rest or a fever please return to a health care provider for an evaluation you did have some kideny distress that can be associated with the covid 19 virus, please have good hydration after discharge to assure good hydration [employer] Provider Instructions: please have some outpt blood work done and reviewed by Dr Cervantes and a follow up appointment in one week Pending Studies at Discharge: No Stand-Alone Forms: My ClearRisk, Smoking Cessation Skilled Items Lines: None Urinary Catheter: No Medications and DC Order Prescriptions: Continued aspirin [Adult Low Dose Aspirin] 81 mg tablet,delayed release (DR/EC) 81 mg PO DAILY Qty: 90 3RF finasteride [Proscar] 5 mg tablet 5 mg PO DAILY Qty: 90 3RF pantoprazole [Protonix] 40 mg tablet,delayed release (DR/EC) 40 mg PO DAILY Qty: 90 3RF lisinopril 5 mg tablet 5 mg PO DAILY Qty: 90 3RF benzonatate 100 mg capsule 100 mg PO TID PRN (Reason: cough) Qty: 30 0RF acetaminophen [Tylenol] 325 mg tablet 325 mg PO QID PRN (Reason: pain) Qty: 30 0RF (DME) blood sugar diagnostic Strip See Rx Instructions .ROUTE .MEDSUPPLY Qty: 100 5RF Rx Instructions: Accu Chek Guide test strips- check BS once daily cholecalciferol (vitamin D3) 50 mcg (2,000 unit) capsule 50 mcg PO DAILY Qty: 90 1RF (DME) lancets [Accu-Chek Fastclix Lancet Drum] Misc See Rx Instructions .Route Qty: 100 5RF Rx Instructions: Check BS once daily atorvastatin 40 mg tablet 40 mg PO QPM Qty: 90 1RF citalopram 10 mg tablet 10 mg PO DAILY Qty: 30 2RF amlodipine 2.5 mg tablet 2.5 mg PO DAILY Qty: 90 3RF metoprolol succinate 50 mg tablet extended release 24 hr 75 mg PO QAM Qty: 135 3RF Rx Instructions: Take 75 mg in AM, 50 mg at night dorzolamide-timolol 22.3-6.8 mg/mL drops 1 drp OPB BID clopidogrel 75 mg tablet 75 mg PO Q2D cyclosporine 0.05 % drops 1 drp OPB BID glipizide 10 mg tablet extended release 24hr 10 mg PO QAM ferrous sulfate 325 mg (65 mg iron) tablet 325 mg PO Q2D metformin 1,000 mg tablet 1,000 mg PO BIDM metoprolol succinate 50 mg tablet extended release 24 hr 50 mg PO HS Rx Instructions: Take 75 mg in AM, 50 mg at night Trulicity 4.5 mg/0.5 mL pen injector 4.5 mg subcut Q7D Rx Instructions: Wednesdays Discharge Orders: Discharge Order (Routine); Ordered 11/10/23 Ordered By: Jagdeep Medina/Other Patient Handouts: Managing Type 2 Diabetes Admission Data Admit Date/Time: 11/04/23 11:06 Attending Provider: Jagdeep Cortez Admit Provider: Alessandro Tate Primary Care Provider: Jeremy Cervantes Other Providers: Alessandro Tate; Ag Khan [facility] Other Interventions: Discharge Summary Assessment (RN) Last Done: 11/10/23 12:08 Coding Level of Care Code 98862 INP/OBS DISCH >30 MIN Diagnoses COVID U07.1 Pulmonary edema J81.1 Elevated troponin R79.89 Sepsis A41.9 Hypomagnesemia E83.42 DM (diabetes mellitus), type 2 with neurological complications E11.49 Stented coronary artery Z95.5 HTN (hypertension) I10 CKD stage 3b, 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
== END 2023-11-10 12:09 | DRG 871 ==
LOC: ED 07:27 → EDINP 11:06 → SUATTDRO 11:06 → 4W 12:44

== ENCOUNTER 2024-09-26 10:56 | Inpatient (IN) ==
--- NOTE | 2024-09-26 11:38 | Emergency Department Note ---
Impression & Plan Acute kidney injury Admission ED Provider Note HPI: History obtained from patient and patient's son at the bedside. The patient is a 89-year-old gentleman who presents emergency department with a chief complaint of worsening kidney function on outpatient lab work. Patient has a history of a recent hemorrhagic CVA, his son is at the bedside and serves further history. He tells me that the patient has been at [facility] since this past , while there is had issues with delirium as well as an up trending creatinine. Today they recommended he come to the ER to be assessed given his up-trending creatinine and other issues. On arrival here to the ED the patient is able to follow commands appropriately, he is otherwise a limited historian and his son does help with history. Patient otherwise appears to physically be in no acute distress. He does not have any obvious focal deficits on my evaluation. ROS: - Per HPI Differential Diagnosis: Acute kidney injury, cardiorenal syndrome, delirium in the setting of recent intracranial hemorrhage, worsening/acute intracranial hemorrhage, labile blood sugar/hypoglycemia, sepsis/infection, amongst other potential pathologies. *Outpatient medications and allergy history reviewed. PE: General: Alert, no acute distress HEENT: Normocephalic, trachea midline Eyes: Extraocular eye movement is intact, no scleral erythema Pulmonary: Clear to auscultation bilaterally, no wheezing Cardio: Regular rate and irregular rhythm GI: Abdomen is soft to palpation : No suprapubic tenderness MSK: No evidence of trauma or malformation of the extremities, no edema Skin: No evidence of rash Neuro: Alert, no focal deficits, equal bilateral client experience administrator strength, symmetrical facial movements are appreciated, follows commands appropriately Psychiatric: Confused, overall cooperative with exam INDEPENDENT INTERPRETATIONS: bus monitor: (As interpreted by myself): - An order was placed for continuous cardiac monitoring - Patient was noted to be in atrial fibrillation with a rate of 95 EKG: (As interpreted by myself): Rate: 102 Rhythm: Atrial fibrillation Intervals: Within normal limits ST changes: No ST elevation Time: 1140 Chest x-ray: (As interpreted by myself): No focal infiltrate Interventions provided in ED: -Normal saline bolus Medical Decision Making: IV was established and lab work obtained, patient was placed on phototypesetting equipment monitor. Lab work shows no leukocytosis, hemoglobin is stable at 11.3, platelet count is normal, CMP shows an uptrending creatinine to 2.87, BUN is 24, magnesium is slightly reduced to 1.5, troponin is 55.9. EKG does not show any evidence of any acute ischemic changes per my interpretation but does appear to show new onset atrial fibrillation. CT imaging of the head was obtained and does not show any evidence of any expanding or acute hemorrhage. On my reassessment the patient is sleeping comfortably in bed, I discussed all of the above findings with the patient's son who is at the bedside. At this time the patient will be placed for admission for new onset atrial fibrillation and acute kidney injury. He is in agreement to this plan. Case was then discussed with the on-call hospitalist, Dr. Cortez, the patient was placed for admission in stable condition. Consultants/Discussions held with other healthcare providers: -Hospitalist, Dr. Cortez Disposition discussion held by myself with: -Patient's son Diagnosis: 1. Acute kidney injury 2. Elevated high-sensitivity troponin, acute, mild 3. New onset atrial fibrillation 4. 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) Mild cognitive impairment Chronic GERD BPH (benign prostatic hyperplasia) Glaucoma Current use of proton pump inhibitor SCCA (squamous cell carcinoma) of skin Cardiac arrest (1995) Myocardial infarction (1995) HTN (hypertension) Dyslipidemia Sensorineural hearing loss of both ears Vitamin D deficiency Cerumen impaction Family History Father Myocardial infarction Denies family history of Ovarian cancer Prostate cancer Breast cancer Colorectal cancer Social History Smoking Status: Unknown if ever smoked Tobacco Type: Cigarettes Age Started Using Tobacco: 18; Age Quit Using Tobacco: 47; packs per day: 2; Hx Alcohol Use: No Hx Substance Use: No Preferred Language: Irish Communication Ability: Effective Visual Impairment: No Limitations Hearing Ability: Use of Hearing Aid Solar Resource Assessor Required: No Beliefs That Will Affect Care: None marital status: Current Living Situation: Spouse and Half-Way current occupational status: retired Feels Safe at Home: Yes Seatbelt Use: always Sunscreen Use: Yes Assistive Devices: Walker Allergies Allergies Allergy/AdvReac Type Severity Reaction Status Date / Time No Known Allergies Allergy Mild Unverified 08/11/24 12:50 Home Meds Home Medications Medication Instructions Recorded Confirmed dorzolamide 22.3 mg-timolol 6.8 1 drp OPB BID 12/10/22 08/11/24 mg/mL eye drops cyclosporine 0.05 % eye drops 1 drp OPB BID 11/04/23 08/11/24 metoprolol succinate 50 mg 50 mg PO HS 11/04/23 08/11/24 tablet,extended release 24 hr melatonin 5 mg capsule mg PO DAILY 07/05/24 08/11/24 Previous Rx's Medication Instructions Recorded blood sugar diagnostic #100 ea 10/06/23 lancets (Accu-Chek Fastclix Lancet #100 ea 10/06/23 Drum) benzonatate 100 mg capsule 100 mg PO TID PRN cough 7 days #30 11/17/23 caps aspirin 81 mg tablet,delayed 81 mg PO DAILY #90 tabs 12/25/23 release (Adult Low Dose Aspirin) clopidogrel 75 mg tablet 75 mg PO Q2D #90 tabs 01/06/24 glipizide 10 mg tablet, extended 10 mg PO QAM #90 tabs 01/06/24 release 24 hr lisinopril 5 mg tablet 5 mg PO DAILY #90 tabs 01/06/24 ferrous sulfate 325 mg (65 mg 325 mg PO Q2D #90 tabs 01/12/24 iron) tablet pantoprazole 40 mg tablet,delayed 40 mg PO DAILY #90 tabs 01/12/24 release (Protonix) cyclosporine 0.05 % eye drops 1 drp ophthalmic (eye) Q12H #5.5 mL 02/03/24 metformin 500 mg tablet,extended 1,000 mg (2 x 500 mg) PO BID #360 02/09/24 release 24 hr tabs citalopram 10 mg tablet 10 mg PO DAILY #90 tabs 02/11/24 acetaminophen 325 mg tablet 325 mg PO QID PRN pain #30 tabs 05/18/24 (Tylenol) dulaglutide 4.5 mg/0.5 mL 4.5 mg (0.5 mL) subcut .weekly #2 05/18/24 subcutaneous pen injector mL (Trulicity) finasteride 5 mg tablet (Proscar) 5 mg PO DAILY #90 tabs 05/18/24 atorvastatin 40 mg tablet 40 mg PO QPM #90 tabs 07/05/24 metoprolol succinate 50 mg 75 mg (1.5 x 50 mg) PO QAM #135 07/05/24 tablet,extended release 24 hr tabs cholecalciferol (vitamin D3) 50 50 mcg PO DAILY #90 caps 08/17/24 mcg (2,000 unit) capsule amlodipine 2.5 mg tablet 2.5 mg PO DAILY #90 tabs 08/31/24 Results & Data (ED) Vital Signs Vital Signs - 24 hr 09/26/24 11:30 09/26/24 11:30 09/26/24 11:30 Temperature 36.8 C 36.8 C Temperature Source Oral Oral Pulse Rate 117 H 117 H Pulse Rate [Apical] 117 H Pulse Rate from SpO2 Sensor Pulse Rhythm Regular Regular Pulse Rhythm [Apical] Regular Pulse Strength Normal Pulse Strength [Apical] Normal Respiratory Rate 24 24 24 Respiratory Effort / Characteristics Non-Labored Spontaneous Non-Labored Spontaneous Respiratory Depth Normal Normal Respiratory Pattern Regular Regular Blood Pressure 156/95 H Blood Pressure [Left Arm] 156/95 H Blood Pressure Mean 115 Blood Pressure Mean [Left Arm] 115 Blood Pressure Position Semi-fowlers Blood Pressure Position [Left Arm] Semi-fowlers Pulse Oximetry 95 95 95 Oxygen Delivery Method Room Air Room Air Room Air Sepsis Recent Fever Within 48 Hours No Sepsis New/Unexplained Change in Mental Status No Sepsis Action Taken by Nursing No Action Required 09/26/24 12:36 09/26/24 13:00 09/26/24 13:42 Temperature Temperature Source Pulse Rate 95 H 88 101 H Pulse Rate [Apical] Pulse Rate from SpO2 Sensor 104 H Pulse Rhythm Pulse Rhythm [Apical] Pulse Strength Pulse Strength [Apical] Respiratory Rate 24 22 Respiratory Effort / Characteristics Respiratory Depth Respiratory Pattern Blood Pressure 135/67 135/67 Blood Pressure [Left Arm] Blood Pressure Mean 89 89 Blood Pressure Mean [Left Arm] Blood Pressure Position Blood Pressure Position [Left Arm] Pulse Oximetry 98 97 Oxygen Delivery Method Room Air Sepsis Recent Fever Within 48 Hours Sepsis New/Unexplained Change in Mental Status Sepsis Action Taken by Nursing 09/26/24 14:06 Temperature Temperature Source Pulse Rate 94 H Pulse Rate [Apical] Pulse Rate from SpO2 Sensor Pulse Rhythm Pulse Rhythm [Apical] Pulse Strength Pulse Strength [Apical] Respiratory Rate 19 Respiratory Effort / Characteristics Respiratory Depth Respiratory Pattern Blood Pressure 141/89 H Blood Pressure [Left Arm] Blood Pressure Mean 106 Blood Pressure Mean [Left Arm] Blood Pressure Position Blood Pressure Position [Left Arm] Pulse Oximetry Oxygen Delivery Method Sepsis Recent Fever Within 48 Hours Sepsis New/Unexplained Change in Mental Status Sepsis Action Taken by Nursing Laboratory Data 09/26/24 11:10 09/26/24 11:10 Lab Results 09/26/24 09/26/24 09/26/24 Range/Units 11:10 12:44 13:25 WBC 8.14 (4.8-10.8) K/ul RBC 3.94 L (4.70-6.10) M/uL Hgb 11.3 L (14.0-18.0) g/dl Hct 34.7 L (42.0-52.0) % MCV 88.1 (80.0-100.0) fL MCH 28.7 (25.0-34.0) pg MCHC 32.6 (32.0-36.0) g/dL RDW Std Deviation 44.1 (36.4-46.3) fL RDW Coeff of Brittany 13.7 (11.5-14.5) % Plt Count 250 (130-400) K/uL MPV 10.6 (9.4-12.4) fL Immature Gran % (Auto) 0.5 % Neut % (Auto) 71.5 % Lymph % (Auto) 13.6 % [place] % (Auto) 8.1 % Eos % (Auto) 5.8 % Baso % (Auto) 0.5 % Neut # (Auto) 5.82 (1.40-6.50) K/uL Lymph # (Auto) 1.11 L (1.20-3.40) K/uL [place] # (Auto) 0.66 H (0.11-0.59) K/uL Eos # (Auto) 0.47 (0.00-0.50) K/uL Baso # (Auto) 0.04 (0.00-0.20) K/uL Immature Gran # (Auto) 0.04 (0.01-0.20) K/uL PT 11.8 (9.0-12.0) Seconds INR 1.1 (0.9-1.1) Sodium 140 (136-145) mmol/L Potassium 4.9 (3.5-5.1) mmol/L Chloride 103 (98-107) mmol/L Carbon Dioxide 29 (21-32) mmol/L Anion Gap 8 (3-11) BUN 24 H (6-23) mg/dl Creatinine 2.87 H (0.6-1.4) mg/dl Est Cr Clr Drug Dosing 20.9 ml/min eGFR 20.56 BUN/Creatinine Ratio 8.4 L (10-20) Glucose 215 H (70-99(Fasting)) mg/dl Calcium 8.8 (8.6-10.3) mg/dl Phosphorus 4.2 (2.5-4.9) mg/dl Magnesium 1.5 L (1.7-2.4) mg/dl Total Bilirubin 0.7 (0.2-1.0) mg/dl AST 19 (13-39) U/L ALT 13 (7-52) U/L Alkaline Phosphatase 64 (34-104) U/L Troponin I High Sens 55.9 H* 53.5 H* (0-20) pg/ml Total Protein 6.8 (6.0-8.3) gm/dl Albumin 3.7 (3.4-5.0) gm/dl Globulin 3.1 (2.5-4.0) gm/dl Albumin/Globulin Ratio 1.2 (0.9-2) Lipase 23 (11-82) U/L TSH 1.126 (0.300-4.500) uIu/ml Urine Color Yellow Urine Appearance Clear (Clear) Urine pH 6.5 (4.5-7.5) Ur Specific [place] 1.009 (1.000-1.030) Urine Protein Trace H (Negative) Urine Glucose (UA) Negative (Negative) Urine Ketones Negative (Negative) Urine Blood Negative (Negative) Urine Nitrite Negative (Negative) Urine Bilirubin Negative (Negative) Urine Urobilinogen Negative (Negative) Ur Leukocyte Esterase Negative (Negative) Urine WBC (Auto) 0-5 (0-5) /hpf Urine RBC (Auto) 0-2 (0-2) /hpf U Hyaline Cast (Auto) 0-2 (0-2) /lpf U Epithel Cells (Auto) 0-2 (0-2) /hpf Urine Bacteria (Auto) None Seen (None Seen) Adenovirus (PCR) Not Detected (NotDetected) B. pertussis DNA (PCR) Not Detected (NotDetected) B.parapertussis DNA PCR Not Detected (NotDetected) C. pneumoniae DNA (PCR) Not Detected (NotDetected) Coronavirus OC43 (PCR) Not Detected (NotDetected) Coronavirus HKU1 (PCR) Not Detected (NotDetected) Coronavirus 229E (PCR) Not Detected (NotDetected) SARS-CoV-2 (PCR) Not Detected (NotDetected) Coronavirus NL63 (PCR) Not Detected (NotDetected) Human Metapneumovir PCR Not Detected (NotDetected) Influenza Type A (PCR) Not Detected (NotDetected) Influenza Type B (PCR) Not Detected (NotDetected) M. pneumoniae (PCR) Not Detected (NotDetected) Parainfluenza 1 (PCR) Not Detected (NotDetected) Parainfluenza 2 (PCR) Not Detected (NotDetected) Parainfluenza 3 (PCR) Not Detected (NotDetected) Parainfluenza 4 (PCR) Not Detected (NotDetected) RSV (PCR) Not Detected (NotDetected) Entero/Rhino (PCR) Not Detected (NotDetected) Administered Medications Discontinued Medications Sodium Chloride (Nss) 1,000 mls @ 999 mls/hr IV .Q1H1M ONE Stop: 09/26/24 13:14 Last Infusion: 09/26/24 14:21 Dose: Infused Documented By: Admin: 09/26/24 12:43 Dose: 999 mls/hr Documented By: RADHA Imaging Data Radiologist's Impression: Chest X-Ray 09/26/24 11:28 XR chest 1V portable CLINICAL HISTORY: weakness COMPARISON STUDY: 09/05/2024 FINDINGS: Cardiac loop recorder is present. There is stable cardiomegaly without pulmonary vascular congestion. Inspiration is shallow. No effusion, consolidation, or pneumothorax. IMPRESSION: Shallow inspiration. No acute findings seen. ACT 112: Negative or not required by law. Electronically signed by: Emanuel Hernandez M.D. 09/26/2024 12:[address] 09/26/24 11:38 CT OF THE HEAD WITHOUT CONTRAST CLINICAL HISTORY: AMS, recent ICH COMPARISON STUDY: Head CT September 05, 2024. CT DOSE: 1975.91 mGy.cm TECHNIQUE: Helical axial images of the head were obtained without IV contrast. Automated exposure control was utilized for the study. A dose lowering technique was utilized adhering to the principles of ALARA. FINDINGS: This exam is mildly compromised by motion artifact. No acute intracranial hemorrhage, midline shift or mass effect is present. There has been expected evolution of the intraparenchymal hemorrhage within the left temporal lobe since CT of September 05, 2024. Size and attenuation of the hemorrhage has significantly decreased. Adjacent hypodensity is similar to prior exam. Associated mass effect has decreased. Ventricular system is unremarkable. The basal cisterns are patent. 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 Encephalomalacia within left parietal lobe is unchanged. There are no findings to suggest acute dural sinus thrombosis or acute territorial infarct. There are no calvarial fractures. As before, the frontal sinuses are opacified. IMPRESSION: 1. No acute intracranial findings. Mild motion artifact. 2. Expected evolution of the left temporal lobe intraparenchymal hemorrhage shown on CT of September 05, 2024. Adjacent hypodensity is similar to prior exam. This could represent vasogenic edema or a subacute infarct. ACT 112: Negative or not required by law. Electronically signed by: Jason Herman M.D. 09/26/2024 12:16 PM Discharge Plan Visit Data Chief Complaint: Abnormal Labs/Diagnostic Testing ED Provider: Troy Santos Discharge Problem: Acute kidney injury Forms Stand Alone Forms: [facility] Prescriptions Prescriptions: No Action (DME) blood sugar diagnostic Strip See Rx Instructions .ROUTE .MEDSUPPLY Qty: 100 5RF Rx Instructions: Accu Chek Guide test strips- check BS once daily (DME) lancets [Accu-Chek Fastclix Lancet Drum] Misc See Rx Instructions .Route Qty: 100 5RF Rx Instructions: Check BS once daily benzonatate 100 mg capsule 100 mg PO TID PRN (Reason: cough) 7 Days Qty: 30 0RF aspirin [Adult Low Dose Aspirin] 81 mg tablet,delayed release (DR/EC) 81 mg PO DAILY Qty: 90 3RF glipizide 10 mg tablet extended release 24hr 10 mg PO QAM Qty: 90 3RF lisinopril 5 mg tablet 5 mg PO DAILY Qty: 90 3RF clopidogrel 75 mg tablet 75 mg PO Q2D Qty: 90 1RF ferrous sulfate 325 mg (65 mg iron) tablet 325 mg PO Q2D Qty: 90 3RF pantoprazole [Protonix] 40 mg tablet,delayed release (DR/EC) 40 mg PO DAILY Qty: 90 3RF cyclosporine 0.05 % drops 1 drp ophthalmic (eye) Q12H Qty: 5.5 3RF Rx Instructions: 1 drop in both eyes twice a day metformin 500 mg tablet extended release 24 hr 1,000 mg PO BID Qty: 360 3RF citalopram 10 mg tablet 10 mg PO DAILY Qty: 90 1RF acetaminophen [Tylenol] 325 mg tablet 325 mg PO QID PRN (Reason: pain) Qty: 30 0RF Trulicity 4.5 mg/0.5 mL pen injector 4.5 mg subcut .weekly Qty: 2 5RF finasteride [Proscar] 5 mg tablet 5 mg PO DAILY Qty: 90 3RF atorvastatin 40 mg tablet 40 mg PO QPM Qty: 90 1RF metoprolol succinate 50 mg tablet extended release 24 hr 75 mg PO QAM Qty: 135 3RF Rx Instructions: Take 75 mg in AM, 50 mg at night cholecalciferol (vitamin D3) 50 mcg (2,000 unit) capsule 50 mcg PO DAILY Qty: 90 1RF amlodipine 2.5 mg tablet 2.5 mg PO DAILY Qty: 90 3RF dorzolamide-timolol 22.3-6.8 mg/mL drops 1 drp OPB BID melatonin 5 mg capsule PO DAILY cyclosporine 0.05 % drops 1 drp OPB BID metoprolol succinate 50 mg tablet extended release 24 hr 50 mg PO HS Rx Instructions: Take 75 mg in AM, 50 mg at night Referrals Referrals: Jeremy Ruby MD [Primary Care Provider] -
[2024-09-26 11:43] LABS: Basophils # (auto) 0.04 K/uL (0.00-0.20); Basophils % (auto) 0.5 %; Eosinophils # (auto) 0.47 K/uL (0.00-0.50); Eosinophils % (auto) 5.8 %; Hematocrit (blood only) 34.7 % (42.0-52.0); Hemoglobin 11.3 g/dl (14.0-18.0); Immature Granulocytes # (auto) 0.04 K/uL (0.01-0.20); Immature Granulocytes % (auto) 0.5 %; Lymphocytes # (auto) 1.11 K/uL (1.20-3.40); Lymphocytes % (auto) 13.6 %; Mean Corpuscular Hemoglobin 28.7 pg (25.0-34.0); Mean Corpuscular Hgb Conc 32.6 g/dL (32.0-36.0); Mean Corpuscular Volume 88.1 fL (80.0-100.0); Mean Platelet Volume 10.6 fL (9.4-12.4); Monocytes # (auto) 0.66 K/uL (0.11-0.59); Monocytes % (auto) 8.1 %; Neutrophils # (auto) 5.82 K/uL (1.40-6.50); Neutrophils % (auto) 71.5 %; Platelet Count 250 K/uL (130-400); RDW Coefficient of Variation 13.7 % (11.5-14.5); RDW Standard Deviation 44.1 fL (36.4-46.3); Red Blood Count 3.94 M/uL (4.70-6.10); White Blood Count 8.14 K/ul (4.8-10.8)
[2024-09-26 12:00] LABS: Albumin Globulin Ratio 1.2 (0.9-2); Albumin Level 3.7 gm/dl (3.4-5.0); BUN Creatinine Ratio 8.4 (10-20); Bilirubin,Total 0.7 mg/dl (0.2-1.0); Calcium 8.8 mg/dl (8.6-10.3); Creatinine Clr Calc Pharmacy 20.9 ml/min; Globulin 3.1 gm/dl (2.5-4.0); Magnesium 1.5 mg/dl (1.7-2.4); Phosphorus 4.2 mg/dl (2.5-4.9); Potassium 4.9 mmol/L (3.5-5.1); Total Protein 6.8 gm/dl (6.0-8.3)
[2024-09-26 12:07] LABS: INR 1.1 (0.9-1.1); Prothrombin Time 11.8 Seconds (9.0-12.0)
[2024-09-26 12:13] LABS: Troponin I High Sensitivity 55.9 pg/ml (0-20)
[2024-09-26 12:15] LABS: Thyroid Stimulating Hormone 1.126 uIu/ml (0.300-4.500)
--- NOTE | 2024-09-26 12:15 | XRay Report ---
XR chest 1V portable CLINICAL HISTORY: weakness COMPARISON STUDY: 09/05/2024 FINDINGS: Cardiac loop recorder is present. There is stable cardiomegaly without pulmonary vascular c ongestion. Inspiration is shallow. No effusion, consolidation, or pneumothorax. IMPRESSION: Shallow inspiration. No acute findings seen. ACT 112: Negative or not required by law. Electronically signed by: Emanuel Hernandez M.D. 09/26/2024 12:14 PM
--- NOTE | 2024-09-26 12:17 | CT Scan Report ---
CT OF THE HEAD WITHOUT CONTRAST CLINICAL HISTORY: AMS, recent ICH COMPARISON STUDY: Head CT September 05, 2024. CT DOSE: 1975.91 mGy.cm TECHNIQUE: Helical axial images of the head were obtained without IV contrast. Automated exposure con trol was utilized for the study. A dose lowering technique was utilized adhering to the principles o f ALARA. FINDINGS: This exam is mildly compromised by motion artifact. No acute intracranial hemorrhage, midli ne shift or mass effect is present. There has been expected evolution of the intraparenchymal hemorrh age within the left temporal lobe since CT of September 05, 2024. Size and attenuation of the hemorrha ge has significantly decreased. Adjacent hypodensity is similar to prior exam. Associated mass effect has decreased. Ventricular system is unremarkable. The basal cisterns are patent. Old right occipita l lobe infarct is again noted. Encephalomalacia within left parietal lobe is unchanged. There are no findings to suggest acute dural sinus thrombosis or acute territorial infarct. There are no calvarial fractures. As before, the frontal sinuses are opacified. IMPRESSION: 1. No acute intracranial findings. Mild motion artifact. 2. Expected evolution of the left temporal lobe intraparenchymal hemorrhage shown on CT of August 272024. Adjacent hypodensity is similar to prior exam. This could represent vasogenic edema or a sub acute infarct. ACT 112: Negative or not required by law. Electronically signed by: Jason Herman M.D. 09/26/2024 12:16 PM
[2024-09-26] MEDS: SODIUM CHLORIDE 0.9% 1,000 ML IV ONE (12:43)
[2024-09-26 13:00] LABS: Appearance Urine Clear (Clear); Bacteria Urine Automated None Seen (None Seen); Bilirubin Urine Negative (Negative); Blood Urine Negative (Negative); Cast Urine Automated 0-2 /lpf (0-2); Color Urine Yellow; Epithelial Cell Urine Auto 0-2 /hpf (0-2); Glucose Urine UA Negative (Negative); Ketones Urine Negative (Negative); Leukocyte Esterase Urine Negative (Negative); Nitrite Urine Negative (Negative); Protein Urine Trace (Negative); RBC Urine Automated 0-2 /hpf (0-2); Specific Gravity Urine 1.009 (1.000-1.030); Urobilinogen Urine Negative (Negative); WBC Urine Automated 0-5 /hpf (0-5); pH Urine 6.5 (4.5-7.5)
[2024-09-26 13:03] LABS: Adenovirus PCR Not Detected (NotDetected); Bordetella parapertussis PCR Not Detected (NotDetected); Bordetella pertussis PCR Not Detected (NotDetected); Chlamydia pneumoniae PCR Not Detected (NotDetected); Coronavirus 229E PCR Not Detected (NotDetected); Coronavirus CoV-2 (COVID19)PCR Not Detected (NotDetected); Coronavirus HKU1 PCR Not Detected (NotDetected); Coronavirus NL63 PCR Not Detected (NotDetected); Coronavirus OC43PCR Not Detected (NotDetected); Human Metapneumovirus PCR Not Detected (NotDetected); Influenza A PCR Not Detected (NotDetected); Influenza B PCR Not Detected (NotDetected); Mycoplasma pneumoniae PCR Not Detected (NotDetected); Parainfluenza Virus 1 PCR Not Detected (NotDetected); Parainfluenza Virus 2 PCR Not Detected (NotDetected); Parainfluenza Virus 3 PCR Not Detected (NotDetected); Parainfluenza Virus 4 PCR Not Detected (NotDetected); Respiratory Syncytial VirusPCR Not Detected (NotDetected); Rhinovirus/Enterovirus PCR Not Detected (NotDetected)
--- NOTE | 2024-09-26 13:34 | History & Physical Report ---
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 Pt has been at [facility] since this past , while there is had issues with delirium as well as an up trending creatinine. PT did not report any symptoms but was only oriented to self during PE. Skin lesions appreciated on legs bilaterally without reported pain. EKG remarkable for AFIB. Differential diagnoses include encephalopathy/delirium secondary to CKD, leg infection, or post-stroke etiology. PLAN CKD - Give 80mL/hr NSS until 16:00 on 09/26/24 - Bladder scan PRN - Monitor CMP with AM labs AFIB - Continue home dose of 75mg metoprolol PO daily Recommend additional IV metoprolol PRN if heart rate increases - Recommend Telemetry in PCU for AFIB - EKG with chest pain PRN - Hold anticoagulation for now give recent CVA. [id number] Score = 7, HAS-BLED Score = 6. Will discuss anticoagulation with neurology on 09/27 T2DM - BSG ACHS - Basal insulin added at 10 units BID starting 09/27 - Begin sliding scale insulin starting 09/27 CF 25mg/dL/unit CR 15g/unit - Hold glipizide, dulaglutide, and metformin Metabolic Encephalopathy / Delirium - Recommend olanzapine 5mg PO BID PRN for concerns of agitation. Consider Haloperidol 5mg IV PRN, if insufficient. - Collect collateral information from Pt's son either in-person or by phone - Recommend fall precautions Hypomagnesmia - Ordered IV magnesium 1mg - Will reassess CMP in AM labs Chronic conditions: Continue lisinopril po 5 mg Continue finasteride po 5 mg Continue atorvastatin 40mg po Continue Clopidogrel 75mg po Continue Ferrous sulfate 325mg po Diet: DM2, carb control diet, Easy to chew diet DVT prophylaxis: SCDs Code: DNR/DNI Dispo: PCU/tele History of Present Illness Chief Complaint: Abnormal outpatient labs, delirium Primary Care Provider: Jeremy Ruby MD The patient is a 89-year-old gentleman who presents emergency department with a chief complaint of worsening kidney function on outpatient lab work. Patient has a history of a recent hemorrhagic CVA, his son is at the bedside and serves further history. He tells me that the patient has been at [facility] since this past , while there is had issues with delirium as well as an up trending creatinine. Today they recommended he come to the ER to be assessed given his uptrending creatinine and other issues. On arrival here to the ED the patient is able to follow commands appropriately, he is otherwise a limited historian and his son does help with history. Pt was seen by the hospitalist team around 1:30pm on 09/26/24. Pt was alone in his room and his son did not come back while he was interviewed. When first asked, the patient stated that he was at the [place] [facility]. When asked again, he reported being in [place]. He reported that it was February 1961 and that he was born on April 26, 1961. When asked why he believed he was in the hospital, the patient said it was because of "all the blood tests", but was unable to elaborate further. Further details about his previous medical conditions (including recent CVA), post stroke health, or current symptoms could not be obtained with certainty. Allergies Allergy/AdvReac Type Severity Reaction Status Date / Time No Known Allergies Allergy Mild Unverified 08/11/24 12:50 Home Medications Medication Instructions Recorded Confirmed Type dorzolamide 22.3 mg-timolol 6.8 1 drp OPB BID 12/10/22 08/11/24 History mg/mL eye drops blood sugar diagnostic #100 ea 10/06/23 08/11/24 Rx lancets (Accu-Chek Fastclix Lancet #100 ea 10/06/23 08/11/24 Rx Drum) cyclosporine 0.05 % eye drops 1 drp OPB BID 11/04/23 08/11/24 History metoprolol succinate 50 mg 50 mg PO HS 11/04/23 08/11/24 History tablet,extended release 24 hr benzonatate 100 mg capsule 100 mg PO TID PRN cough 7 days #30 11/17/23 08/11/24 Rx caps aspirin 81 mg tablet,delayed 81 mg PO DAILY #90 tabs 05/31/24 01/16/25 Rx release (Adult Low Dose Aspirin) clopidogrel 75 mg tablet 75 mg PO Q2D #90 tabs 01/06/24 08/11/24 Rx glipizide 10 mg tablet, extended 10 mg PO QAM #90 tabs 01/06/24 08/11/24 Rx release 24 hr lisinopril 5 mg tablet 5 mg PO DAILY #90 tabs 01/06/24 08/11/24 Rx ferrous sulfate 325 mg (65 mg 325 mg PO Q2D #90 tabs 01/12/24 08/11/24 Rx iron) tablet pantoprazole 40 mg tablet,delayed 40 mg PO DAILY #90 tabs 01/12/24 08/11/24 Rx release (Protonix) cyclosporine 0.05 % eye drops 1 drp ophthalmic (eye) Q12H #5.5 mL 02/03/24 08/11/24 Rx metformin 500 mg tablet,extended 1,000 mg (2 x 500 mg) PO BID #360 02/09/24 08/11/24 Rx release 24 hr tabs citalopram 10 mg tablet 10 mg PO DAILY #90 tabs 02/11/24 08/11/24 Rx acetaminophen 325 mg tablet 325 mg PO QID PRN pain #30 tabs 05/18/24 08/11/24 Rx (Tylenol) dulaglutide 4.5 mg/0.5 mL 4.5 mg (0.5 mL) subcut .weekly #2 05/18/24 08/11/24 Rx subcutaneous pen injector mL (Trulicity) finasteride 5 mg tablet (Proscar) 5 mg PO DAILY #90 tabs 05/18/24 08/11/24 Rx atorvastatin 40 mg tablet 40 mg PO QPM #90 tabs 07/05/24 08/11/24 Rx melatonin 5 mg capsule mg PO DAILY 07/05/24 08/11/24 History metoprolol succinate 50 mg 75 mg (1.5 x 50 mg) PO QAM #135 07/05/24 08/11/24 Rx tablet,extended release 24 hr tabs cholecalciferol (vitamin D3) 50 50 mcg PO DAILY #90 caps 08/17/24 Rx mcg (2,000 unit) capsule amlodipine 2.5 mg tablet 2.5 mg PO DAILY #90 tabs 08/31/24 Rx Past Med/Surg History Problem List (Updated 09/26/24 @ 16:19 by Luis Manuel Amin) Delirium (Acute) Metabolic encephalopathy (Acute) Afib (Acute) Anemia COVID-19 (Acute) Elevated troponin (Acute) Hypomagnesemia (Acute) CKD stage 3b, 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 Sepsis Pulmonary edema Elevated troponin Hypomagnesemia COVID Fever (Acute) Generalized weakness (Acute) DM (diabetes mellitus), type 2 with neurological complications Coronary artery disease 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) 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) Mild cognitive impairment Chronic GERD BPH (benign prostatic hyperplasia) Glaucoma Current use of proton pump inhibitor SCCA (squamous cell carcinoma) of skin Cardiac arrest (1995) Myocardial infarction (1995) HTN (hypertension) Dyslipidemia Sensorineural hearing loss of both ears Vitamin D deficiency Cerumen impaction Family History Father Myocardial infarction Denies family history of Ovarian cancer Prostate cancer Breast cancer Colorectal cancer Social History Smoking Status: Unknown if ever smoked Tobacco Type: Cigarettes Age Started Using Tobacco: 18; Age Quit Using Tobacco: 47; packs per day: 2; Hx Alcohol Use: No Hx Substance Use: No Preferred Language: Korean Communication Ability: Effective Visual Impairment: No Limitations Hearing Ability: Use of Hearing Aid Can Feeder Required: No Beliefs That Will Affect Care: None marital status: Current Living Situation: Spouse and Intermediate current occupational status: retired Feels Safe at Home: Yes Seatbelt Use: always Sunscreen Use: Yes Assistive Devices: Walker Review of Systems Review of Systems: *ROS was completed in the absence of the PT's son (the patient's primary historian) while the PT was not oriented to time or place* Constitutional: No N/V, Fever, chills, or rapid weight loss or weight gain. HEENT: No eye, ear, or nose pain. No changes to sight, hearing, or smell. No nasal congestion. No sore throat or hoarseness. Neck: No neck pain, stiffness, or welling Heart: No chest pain or noticed changes to heart rate. Lungs: No SOB, coughing, or phlegm production. ABD: No ABD pain or changes to bowel habits. : No changes to urinary frequency or urgency. No changes to odor or appearance of urine. MSK: No muscle, join, or bone pain. No new rashes or skin lesions of concern. Psych: No anxiety, depression, or suicidal ideation. No difficulty falling or staying asleep. Neuro: No headaches or migraines. No lightheadedness, dizziness, or bouts of unconsciousness. No changes in sensation or motor function. Physical Exam Physical Exam: General: Pt was in mild distress with slight agitation. Not orientated to place or time. HEENT: Pupils are equal, round, and reactive to light within normal limits. Extraocular movements are intact. Conjunctiva is clear. No scleral icterus. Normal appearance of external ear. Tympanic membranes are clear bilaterally. No nasal tenderness. Non erythematous oropharynx Neck: supple and non-tender. No JVD, thyromegaly, or lymphadenopathy. Heart: RRR, no rubs, murmurs, or gallops. Lungs: CTOB with equal, non-labored respirations. No rales, wheezes, or rhonchi ABD: No rashes, bruises, or angiomas. Soft and non-distended. Active bowel sounds appreciated. No pain to palpation. No rebound tenderness. No organomegaly. MSK: Skin lesions appreciated on legs bilaterally. Full ROM is grossly intact. 5/5 strength in upper and lower extremities Peripheries: 1+ radial and pedal pulses appreciated bilaterally. Neuro: CN1 not tested. CN2-CN12 grossly intact. No noticed motor or sensory abnormalities. Results & Data Results & Data Vital Signs (Past 12 Hours) Vital Signs Temp Pulse Pulse Resp BP BP Pulse Ox 09/26/24 12:36 95 H 09/26/24 11:30 117 H 24 95 09/26/24 11:30 36.8 C 117 H 24 156/95 H 95 09/26/24 11:30 36.8 C 117 H 24 156/95 H 95 O2 Del Method 09/26/24 12:36 09/26/24 11:30 Room Air 09/26/24 11:30 Room Air 09/26/24 11:30 Room Air Laboratory Results Laboratory Results - last 24 hr 09/26/24 09/26/24 09/26/24 11:10 12:44 13:25 WBC 8.14 RBC 3.94 L Hgb 11.3 L Hct 34.7 L MCV 88.1 MCH 28.7 MCHC 32.6 RDW Std Deviation 44.1 RDW Coeff of Brittany 13.7 Plt Count 250 MPV 10.6 Immature Gran % (Auto) 0.5 Neut % (Auto) 71.5 Lymph % (Auto) 13.6 [place] % (Auto) 8.1 Eos % (Auto) 5.8 Baso % (Auto) 0.5 Neut # (Auto) 5.82 Lymph # (Auto) 1.11 L [place]ette # (Auto) 0.66 H Eos # (Auto) 0.47 Baso # (Auto) 0.04 Immature Gran # (Auto) 0.04 PT 11.8 INR 1.1 Sodium 140 Potassium 4.9 Chloride 103 Carbon Dioxide 29 Anion Gap 8 BUN 24 H Creatinine 2.87 H Est Cr Clr Drug Dosing 20.9 eGFR 20.56 BUN/Creatinine Ratio 8.4 L Glucose 215 H Calcium 8.8 Phosphorus 4.2 Magnesium 1.5 L Total Bilirubin 0.7 AST 19 ALT 13 Alkaline Phosphatase 64 Troponin I High Sens 55.9 H* Pending Total Protein 6.8 Albumin 3.7 Globulin 3.1 Albumin/Globulin Ratio 1.2 Lipase 23 TSH 1.126 Urine Color Yellow Urine Appearance Clear Urine pH 6.5 Ur Specific [place] 1.009 Urine Protein Trace H Urine Glucose (UA) Negative Urine Ketones Negative Urine Blood Negative Urine Nitrite Negative Urine Bilirubin Negative Urine Urobilinogen Negative Ur Leukocyte Esterase Negative Urine WBC (Auto) 0-5 Urine RBC (Auto) 0-2 U Hyaline Cast (Auto) 0-2 U Epithel Cells (Auto) 0-2 Urine Bacteria (Auto) None Seen Adenovirus (PCR) Not Detected B. pertussis DNA (PCR) Not Detected B.parapertussis DNA PCR Not Detected C. pneumoniae DNA (PCR) Not Detected Coronavirus OC43 (PCR) Not Detected Coronavirus HKU1 (PCR) Not Detected Coronavirus 229E (PCR) Not Detected SARS-CoV-2 (PCR) Not Detected Coronavirus NL63 (PCR) Not Detected Human Metapneumovir PCR Not Detected Influenza Type A (PCR) Not Detected Influenza Type B (PCR) Not Detected M. pneumoniae (PCR) Not Detected Parainfluenza 1 (PCR) Not Detected Parainfluenza 2 (PCR) Not Detected Parainfluenza 3 (PCR) Not Detected Parainfluenza 4 (PCR) Not Detected RSV (PCR) Not Detected Entero/Rhino (PCR) Not Detected Diagnostic Findings Chest X-Ray 09/26/24 11:28 XR chest 1V portable CLINICAL HISTORY: weakness COMPARISON STUDY: 09/05/2024 FINDINGS: Cardiac loop recorder is present. There is stable cardiomegaly without pulmonary vascular congestion. Inspiration is shallow. No effusion, consolidation, or pneumothorax. IMPRESSION: Shallow inspiration. No acute findings seen. ACT 112: Negative or not required by law. Electronically signed by: Emanuel Hernandez M.D. 09/26/2024 12:[address] 09/26/24 11:38 CT OF THE HEAD WITHOUT CONTRAST CLINICAL HISTORY: AMS, recent ICH COMPARISON STUDY: Head CT September 05, 2024. CT DOSE: 1975.91 mGy.cm TECHNIQUE: Helical axial images of the head were obtained without IV contrast. Automated exposure control was utilized for the study. A dose lowering technique was utilized adhering to the principles of ALARA. FINDINGS: This exam is mildly compromised by motion artifact. No acute intracranial hemorrhage, midline shift or mass effect is present. There has been expected evolution of the intraparenchymal hemorrhage within the left temporal lobe since CT of September 05, 2024. Size and attenuation of the hemorrhage has significantly decreased. Adjacent hypodensity is similar to prior exam. Associated mass effect has decreased. Ventricular system is unremarkable. The basal cisterns are patent. 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 Encephalomalacia within left parietal lobe is unchanged. There are no findings to suggest acute dural sinus thrombosis or acute territorial infarct. There are no calvarial fractures. As before, the frontal sinuses are opacified. IMPRESSION: 1. No acute intracranial findings. Mild motion artifact. 2. Expected evolution of the left temporal lobe intraparenchymal hemorrhage shown on CT of September 05, 2024. Adjacent hypodensity is similar to prior exam. This could represent vasogenic edema or a subacute infarct. ACT 112: Negative or not required by law. Electronically signed by: Jason Herman M.D. 09/26/2024 12:16 PM Medications Administered Medications (Home) dorzolamide 22.3 mg-timolol 6.8 mg/mL eye drops 1 drp OPB BID 12/10/22 [History Confirmed 08/11/24] blood sugar diagnostic #100 ea 10/06/23 [Rx Confirmed 08/11/24] lancets (Accu-Chek Fastclix Lancet Drum) #100 ea 10/06/23 [Rx Confirmed 08/11/24] cyclosporine 0.05 % eye drops 1 drp OPB BID 11/04/23 [History Confirmed 08/11/24] metoprolol succinate 50 mg tablet,extended release 24 hr 50 mg PO HS 11/04/23 [History Confirmed 08/11/24] benzonatate 100 mg capsule 100 mg PO TID PRN cough 7 days #30 caps 11/17/23 [Rx Confirmed 08/11/24] aspirin 81 mg tablet,delayed release (Adult Low Dose Aspirin) 81 mg PO DAILY #90 tabs 12/25/23 [Rx Confirmed 08/11/24] clopidogrel 75 mg tablet 75 mg PO Q2D #90 tabs 01/06/24 [Rx Confirmed 08/11/24] glipizide 10 mg tablet, extended release 24 hr 10 mg PO QAM #90 tabs 01/06/24 [Rx Confirmed 08/11/24] lisinopril 5 mg tablet 5 mg PO DAILY #90 tabs 01/06/24 [Rx Confirmed 08/11/24] ferrous sulfate 325 mg (65 mg iron) tablet 325 mg PO Q2D #90 tabs 01/12/24 [Rx C onfirmed 08/11/24] pantoprazole 40 mg tablet,delayed release (Protonix) 40 mg PO DAILY #90 tabs 01/12/24 [Rx Confirmed 08/11/24] cyclosporine 0.05 % eye drops 1 drp ophthalmic (eye) Q12H #5.5 mL 02/03/24 [Rx Confirmed 08/11/24] metformin 500 mg tablet,extended release 24 hr 1,000 mg (2 x 500 mg) PO BID #360 tabs 02/09/24 [Rx Confirmed 08/11/24] citalopram 10 mg tablet 10 mg PO DAILY #90 tabs 02/11/24 [Rx Confirmed 08/11/24] acetaminophen 325 mg tablet (Tylenol) 325 mg PO QID PRN pain #30 tabs 05/18/24 [Rx Confirmed 08/11/24] dulaglutide 4.5 mg/0.5 mL subcutaneous pen injector (Trulicity) 4.5 mg (0.5 mL) subcut .weekly #2 mL 05/18/24 [Rx Confirmed 08/11/24] finasteride 5 mg tablet (Proscar) 5 mg PO DAILY #90 tabs 05/18/24 [Rx Confirmed 08/11/24] atorvastatin 40 mg tablet 40 mg PO QPM #90 tabs 07/05/24 [Rx Confirmed 08/11/24] melatonin 5 mg capsule mg PO DAILY 07/05/24 [History Confirmed 08/11/24] metoprolol succinate 50 mg tablet,extended release 24 hr 75 mg (1.5 x 50 mg) PO QAM #135 tabs 07/05/24 [Rx Confirmed 08/11/24] cholecalciferol (vitamin D3) 50 mcg (2,000 unit) capsule 50 mcg PO DAILY #90 caps 08/17/24 [Rx] amlodipine 2.5 mg tablet 2.5 mg PO DAILY #90 tabs 08/31/24 [Rx] Code Status & VTE Plan Code Status No code VTE Prophylaxis Plan VTE Prophylaxis will be ordered: Yes Supervising Physician Co-Signing Physician Notes Patient was seen and examined independently I discussed the case with Luis Manuel Amin MS2 I reviewed pertinent past medical social family history and also the plan of care and agree with the plan of care. Patient was seen and he was particularly confused asking for a cookie, he is delirious, he has abrasions across his legs worse on his left knee he complains of some abdominal pain Physically he is spontaneously moving arms and legs he is loosely following commands He has an irregular cardiac rhythm at mostly rate controlled at this time he has had periods of elevated rate His lungs are with reasonable bilateral air movement His abdomen was with normal active bowel sounds he was voluntarily guarding and is uncomfortable to exam but it difficult to assess given his level of delirium His extremities have abrasions with some erythema about his both lower legs and anterior shins consistent with falling Reviewing imaging shows regression or evolution of healing of his left hemorrhagic stroke for which she was admitted to [facility] EKG shows new onset atrial fibrillation Reviewed CBC reviewed chemistry Encephalopathy of unclear etiology current infectious sources appear negative with exception of possible skin source from his legs blood cultures will be obtained urinalysis is negative urine culture will not be obtained. Chest x-ray is clear. For delirium we will control his behavior with IV Haldol or oral olanzapine ODT EFFIE on CKD patient is mildly volume depleted by clinical exam his delirium likely impedes his intake he was given a liter of fluid in the ER will give an additional liter and follow his renal parameters Atrial fibrillation, new onset, patient remains on metoprolol will have backup as needed metoprolol IV. TSH is replete magnesium is low this will be replaced. Decision will need to be made on anticoagulation may consider calculating bleeding risk with has bleed calculator Diabetes patient's oral intake will be unclear we are holding his glipizide dulaglutide and metformin will use sliding scale insulin Once his delirium encephalopathy improved we will consider PT OT evaluation Any exceptions will be noted below (2) Afib Atrial fibrillation type: paroxysmal Qualified Code(s): I48.0 - Paroxysmal atrial fibrillation
[2024-09-26] MEDS ORDERED: GLUCOSE 10 TAB/TUBE PO PRN (18:03)
[2024-09-26] MEDS ORDERED: CARBOHYDRATES FOR HYPOGLYCEMIA PO PRN (18:03)
[2024-09-26] MEDS ORDERED: GLUCAGON FOR INJ 1 MG VIAL SQ PRN (18:03)
[2024-09-26] MEDS ORDERED: GLUCOSE 40% GEL 15 GM TUBE PO PRN (18:03)
[2024-09-26] MEDS ORDERED: ONDANSETRON INJ 2 MG/ML 2 ML VIAL IV PRN (18:03)
[2024-09-26] MEDS ORDERED: DEXTROSE 50% 50 ML SYRINGE IV PRN (18:03)
[2024-09-26] MEDS ORDERED: ACETAMINOPHEN 325 MG TAB PO PRN (18:03)
[2024-09-26] MEDS ORDERED: ARTIFICIAL TEARS OP PRN (19:18)
--- OUTSIDE RECORDS SUMMARY | 2024-09-26 19:28 | External Medical Summary ---
Author Name Unknown Address Unknown Organization [id number] [address] [place] [id number] Laboratory Report Ordering Provider Test Date Status ROMAN ARANGO 09/26/2024 05:40:00 Final Observation Date Value Abnormality Reference (Units ) Status BUN 09/26/2024 05:40:00 24 Above high normal 6-20 (mg/dL) Final Creatinine 09/26/2024 05:40:00 2.9 Above high normal 0.6-1.2 (mg/dL) Final Glomerular filtration rate/1.73 sq M.predicted [Volume Rate/Area] in Serum, Plasma or Blood by Creatinine-based formula (CKD-EPI) 09/26/2024 05:40:00 21 Below low normal >=60 (mL/min) Final eGFR is calculated based on the CKD-EPI 2020 equation. Sodium 09/26/2024 05:40:00 138 135-146 (m mol/L) Final Potassium 09/26/2024 05:40:00 4.5 3.5-5.1 (m mol/L) Final Cl 09/26/2024 05:40:00 101 98-107 (mm ol/L) Final CO2 09/26/2024 05:40:00 25 22-32 (mmo l/L) Final Anion gap 09/26/2024 05:40:00 12 7-15 (mmol /L) Final Glucose 09/26/2024 05:40:00 231 Above high normal 70 -120 (mg/dL) Final Calcium 09/26/2024 05:40:00 8.3 Below low normal 8.4 -10.2 (mg/dL) Final Performing Location [facility] [address] [place] [id number]
--- OUTSIDE RECORDS SUMMARY | 2024-09-26 19:28 | External Medical Summary | Summary of Care ---
Author Name Unknown Organization [facility] Address [address] [place] [address] Phone [phone] Care Team Providers Care Oracle Forms Developer Name Role Phone Pro, Jeremy Lanza MD Primary Care Provider [phone] Encounter Details Date Type Department Care Team (Late st Contact Info) Description 09/26/2024 Orders Only Lab Mobile Phlebot[facility] [place] [id number] [facility] [place] [address] Esther Matute PA-Rl [address] [place] [address] EFFIE (acute kidney injury) ([facility])* Allergies No known active allergiesdocumented as of this encounter (statuses as of 09/26/2024) Medications Dorzolamide HCl-Timolol Mal 2-0.5 % Ophthalmic Solution (Cosopt Ocumeter Plus) Instill 1 Drop into eye in the morning and 1 Drop before bedtime. Active Lisinopril 5 MG Oral Tablet (Prinivil) Take 1 Tablet by mouth in the morning. 4 Active metFORMIN HCl ER 500 MG Oral Tablet Extended Release 24 Hour (Glucophage XR) Take 2 Tablets by mouth in the morning and 2 Tablets before bedtime. 4 Active Dulaglutide 4.5 MG/0.5ML Subcutaneous Solution Auto-injector (WhatsOpen) Inject 4.5 mg under the skin every Thursday. 4 Active Aspirin 81 MG Oral Tablet Delayed Release Take 1 Tablet by mouth in the morning. 4 Active Atorvastatin Calcium 40 MG Oral Tablet (Lipitor) Take 1 Tablet by mouth in the morning. 4 Active Pantoprazole Sodium 40 MG Oral Tablet Delayed Release (Protonix) Take 1 Tablet by mouth in the morning. 4 Active Cholecalciferol 50 MCG (2000 UT) Oral Tablet Take 1 Tablet by mouth in the morning. 4 Active cycloSPORINE 0.05 % Ophthalmic Emulsion (Restasis) Instill 1 Drop into both eyes in the morning and 1 Drop before bedtime. 4 Active Melatonin 5 MG Oral Capsule Take 1 Capsule by mouth at bedtime. 4 Active Ferrous Sulfate 325 (65 Fe) MG Oral Tablet (Feosol) Take 1 Tablet by mouth daily with breakfast. 4 Active Finasteride 5 MG Oral Tablet (Proscar) Take 1 Tablet by mouth in the morning. 4 Active traZODone HCl 50 MG Oral Tablet (Desyrel) Take 0.5 Tablets by mouth every night at bedtime for 10 days. 5 Tablet 5 10/01/19 25 Active traZODone HCl 50 MG Oral Tablet (Desyrel) Take 0.25 Tablets by mouth in the morning and 0.25 Tablets at noon. Do all this for 10 days. 5 Tablet 5 10/01/19 25 Active Tamsulosin HCl 0.4 MG Oral Capsule (Flomax) Take 1 Capsule by mouth in the morning for 10 days. 10 Capsule 5 10/02/19 25 Active Spironolactone 25 MG Oral Tablet (Aldactone) Take 1 Tablet by mouth in the morning for 10 days. 10 Tablet 5 10/02/19 25 Active Sodium Bicarbonate 650 MG Oral Tablet Take 1 Tablet by mouth in the morning and 1 Tablet before bedtime. Do all this for 10 days. 20 Tablet 5 10/01/19 25 Active Sennosides 8.6 MG Oral Tablet (Senokot) Take 1 Tablet by mouth in the morning for 10 days. 10 Tablet 5 10/02/19 25 Active QUEtiapine Fumarate 100 MG Oral Tablet (SEROquel) Take 1 Tablet by mouth every night at bedtime for 10 days. 10 Tablet 5 10/01/19 25 Active Polyvinyl Alcohol-Povidone PF 1.4-0.6 % Ophthalmic Solution (Refresh) Instill 1 Drop into both eyes every evening for 10 days. 10 Each 5 10/01/19 25 Active Polyethylene Glycol 3350 17 GM Oral Packet (Miralax) Take 1 Packet by mouth daily as needed for Constipation. 14 Each 5 Active Furosemide 40 MG Oral Tablet (Lasix) Take 1 Tablet by mouth in the morning. 30 Tablet 5 10/22/19 25 Active Digoxin 125 MCG Oral Tablet (Lanoxin) Take 1 Tablet by mouth in the morning. 30 Tablet 5 10/22/19 25 Active Metoprolol Succinate ER 100 MG Oral Tablet Extended Release 24 Hour (toPROL XL) Take 1 Tablet by mouth in the morning. 30 Tablet 5 10/21/19 25 Active Divalproex Sodium 125 MG Oral Capsule Delayed Release Sprinkle (Depakote Sprinkle) Take 1 Capsule by mouth every 8 hours as needed for Agitation (agitation) for up to 10 days. 10 Capsule 5 10/01/19 25 Active documented as of this encounter (statuses as of 09/26/2024) Active Problems Problem Noted Date Diagnosed Date History of CVA (cerebrovascular accident) 2024 Hypertension goal BP (blood pressure) < 140/90 0 09/22/2024 Stage 3b chronic kidney disease (CKD) 09/22/2024 S/P coronary artery stent placement 09/22/2024 History of cardioembolic stroke 09/22/2024 Type 2 diabetes mellitus wit h stage 3b chronic kidney disease, without long-term current use of insulin 09/22/2024 Atrial fibrillation 09/13/2024 Depression 09/13/2024 History of CAD (coronary artery disease) 025 HFrEF (heart failure with reduced ejection fract ion) 09/07/2024 Dyslipidemia, goal LDL below 70 09/07/2024 Delirium due to multiple etiologies, acute, hype ractive 09/07/2024 Encephalopathy acute 09/07/2024 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 documented as of this encounter (statuses as of 09/26/2024) Resolved Problems Problem Noted Date Diagnosed Date Resolved Date Atrial fibrillation with RVR 09/13/2024 09/22/2024 Acute respiratory failure with hypoxia 09/13/2024 09/22/2024 Pulmonary edema 09/12/2024 09/22/2024 Heart failure, systolic, wit h acute decompensation 09/12/2024 09/22/2024 Ac isch multi vasc territories stroke 09/06/2024 09/22/2024 Stroke-like symptoms 09/05/2024 025 documented as of this encounter (statuses as of 09/26/2024) Social History Tobacco Use Types Packs/Day Years Used Date Smoking Tobacco: Former Cigarettes Alcohol Use Standard Drinks/Week Comments Never 0 (1 standard drink = 0.6 oz pur e alcohol) Sex and Gender Information Value Date Recorded Sex Assigned at Not on file Legal Sex Male 2:11 PM EDT Gender Identity Not on file Sexual Orientation Not on file documented as of this encounter Functional Status * Are you deaf or do you have serious difficulty hearing? Answer Date of Assessment Author No 09/05/2024 2:00 PM Ivett Wynne RN * Are you blind or do you have serious difficulty seeing, even when wearing glasses? Answer Date of Assessment Author No 09/05/2024 2:00 PM Ivett Wynne RN * Do you have serious difficulty walking or climbing stairs? (5 years old or older) Answer Date of Assessment Author Yes 09/05/2024 2:00 PM Ivett Wynne RN * Do you have difficulty dressing or bathing? (5 years old or older) Answer Date of Assessment Author Yes 09/05/2024 2:00 PM Ivett Wynne RN * Because of a physical, mental, or emotional condition, do you have difficulty doing errands alone such as visiting a doctors office or shopping? (15 years old or older) Answer Date of Assessment Author Yes 09/05/2024 2:00 PM Ivett Wynne RN documented as of this encounter Mental Status * Because of a physical, mental, or emotional condition, do you have serious difficulty concentrating, remembering, or making decisions? (5 years old or older) Answer Entry Date Author No 09/05/2024 2:00 PM EST Ivett Sahu RN documented in this encounter Plan of Treatment Upcoming Encounters Date Type Department Care Team (Late st Contact Info) Description 09/29/2024 9:30 AM EST Office Visit Cardiology, [facility] [address] [place] [address] Ksenia Arenas CRNP [address] [place] [address] 11/29/2024 3:00 PM EDT Office Visit Neurosurgery, [place] [address] [place] [address] Haider Quinn MD [address] [place] [address] 01/04/2025 11:20 AM EDT Telemedicine Neurology Kody [address] [place] [address] [place] [address] Sagar Ohara MD [address] [place] [address] [facility] [address] [place] [address] Scheduled Orders Name Type Priority Associated Diagnoses Orde r Schedule BASIC METABOLIC PANEL Lab Routine EFFIE (acute kidney injury) (HCC) Expected: 09/26/2024, Expires: 09/26/2025 Health Maintenance Due Date Last Done Comments Depression Monitoring 1947 Diabetic Eye Exam 1955 Diabetic Foot Exam 1955 DTap/Tdap Vaccines (1 - Tdap) 1956 Pneumococcal Vaccine: 50+ Years (1 of 2 - PCV) 1956 Zoster Vaccines (1 of 2) 1987 COVID-19 Vaccine (1 - 2023-2 5 season) 2024 Influenza Vaccine (FLU shot) (#1) 2024 Albumin/Creatinine Ratio 01/03/2025 01/04/2024 HbA1c 03/07/2025 09/07/2024, 01/04/2024 HPV (Gardasil) Vaccine Aged Out No lo nger eligible based on patient's age to complete this topic Hepatitis B Vaccine Aged Out No longe r eligible based on patient's age to complete this topic MENINGOCOCCAL (MENACTRA/MENVEO) Aged Out No longer eligible b ased on patient's age to complete this topic Meningitis B Vaccine (Bexsero/Trumemba) Aged Out No longer eligible b ased on patient's age to complete this topic documented as of this encounter Medical Devices Not on filedocumented as of this encounter Visit Diagnoses Diagnosis EFFIE (acute kidney injury) (HCC)- Primary Acute kidney failure, unspecified documented in this encounter Advance Directives Documents on File Type Date Recorded 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 Question Answer Comments Discussion of Advance Directives occurred with: Family * Full Code Date Activated Date Inactivated Comments 09/05/2024 1:49 PM 09/05/2024 9:07 PM This order r eflects the patients wishes and were consensually agreed upon. Question Answer Comments Discussion of Advance Direct cheryl occurred with: Not Discussed due to patient's condition Does the patient have a Living Will? No Does the patient have Health Care Power of Livestock Inspector? No Care Teams Oracle Forms Developer Relationship Specialty Start Date End Date Pro, Jeremy Lanza MD [address] [facility] [place] [address] PCP - General Internal Medicine 08/27/24 documented as of this encounter
--- OUTSIDE RECORDS SUMMARY | 2024-09-26 19:29 | External Medical Summary | Summary of Care ---
Author Name Unknown Organization [facility] Address [address] [place] [address] Phone [phone] Care Team Providers Care Range Management Specialist Name Role Phone Jeremy Ruby MD Primary Care Provider [phone] Reason for Visit * Reason Onset Date Comments Mcc Visit - Admission 09/22/2024 Encounter Details Date Type Department Care Team (Latest Contact Info) Description 09/22/2024 9:00 AM EST [facility] Visit [facility] [place] [place] [address] [place] [address] Kayden Ray MD [address] [place] [address] [place] [id number] Intraparenchymal hemorrhage of brain (HCC)*; Delirium due to multiple etiologies, acute, hyperactive; History of CVA (cerebrovascular accident); History of cardioembolic stroke; Paroxysmal atrial fibrillation ([facility]); HFrEF (heart failure with reduced ejection fraction) ([facility]); Dyslipidemia, goal LDL below 70; History of CAD (coronary artery disease); Hypertension goal BP (blood pressure) < 140/90; Stage 3b chronic kidney disease (CKD) ([facility]); S/P coronary artery stent placement; Type 2 diabetes mellitus with stage 3b chronic kidney disease, without long-term current use of insulin ([facility]) Allergies No known active allergiesdocumented as of this encounter (statuses as of 09/22/2024) Medications Dorzolamide HCl-Timolol Mal 2-0.5 % Ophthalmic Solution (Cosopt Ocumeter Plus) Instill 1 Drop into eye in the morning and 1 Drop before bedtime. Active Lisinopril 5 MG Oral Tablet (Prinivil) Take 1 Tablet by mouth in the morning. 01/06/20 Active metFORMIN HCl ER 500 MG Oral Tablet Extended Release 24 Hour (Glucophage XR) Take 2 Tablets by mouth in the morning and 2 Tablets before bedtime. 02/09/20 Active Dulaglutide 4.5 MG/0.5ML Subcutaneous Solution Auto-injector (P3 New Media) Inject 4.5 mg under the skin every Thursday. 05/18/20 Active Aspirin 81 MG Oral Tablet Delayed Release Take 1 Tablet by mouth in the morning. 12/25/19 Active Atorvastatin Calcium 40 MG Oral Tablet (Lipitor) Take 1 Tablet by mouth in the morning. 07/05/20 Active Pantoprazole Sodium 40 MG Oral Tablet Delayed Release (Protonix) Take 1 Tablet by mouth in the morning. 01/12/20 Active Cholecalciferol 50 MCG (2000 UT) Oral Tablet Take 1 Tablet by mouth in the morning. 03/30/20 Active cycloSPORINE 0.05 % Ophthalmic Emulsion (Restasis) Instill 1 Drop into both eyes in the morning and 1 Drop before bedtime. 11/04/19 Active Melatonin 5 MG Oral Capsule Take 1 Capsule by mouth at bedtime. 07/05/20 Active Ferrous Sulfate 325 (65 Fe) MG Oral Tablet (Feosol) Take 1 Tablet by mouth daily with breakfast. 01/12/20 Active Finasteride 5 MG Oral Tablet (Proscar) Take 1 Tablet by mouth in the morning. 05/18/20 Active traZODone HCl 50 MG Oral Tablet (Desyrel) Take 0.5 Tablets by mouth every night at bedtime for 10 days. 5 Tablet 09/20/192024 Active traZODone HCl 50 MG Oral Tablet (Desyrel) Take 0.25 Tablets by mouth in the morning and 0.25 Tablets at noon. Do all this for 10 days. 5 Tablet 09/20/19 25 2024 Active Tamsulosin HCl 0.4 MG Oral Capsule (Flomax) Take 1 Capsule by mouth in the morning for 10 days. 10 Capsule 09/21/19 25 2024 Active Spironolactone 25 MG Oral Tablet (Aldactone) Take 1 Tablet by mouth in the morning for 10 days. 10 Tablet 09/21/19 25 2024 Active Sodium Bicarbonate 650 MG Oral Tablet Take 1 Tablet by mouth in the morning and 1 Tablet before bedtime. Do all this for 10 days. 20 Tablet 09/20/19 25 2024 Active Sennosides 8.6 MG Oral Tablet (Senokot) Take 1 Tablet by mouth in the morning for 10 days. 10 Tablet 09/21/19 25 2024 Active QUEtiapine Fumarate 100 MG Oral Tablet (SEROquel) Take 1 Tablet by mouth every night at bedtime for 10 days. 10 Tablet 09/20/192024 Active Polyvinyl Alcohol-Povidone PF 1.4-0.6 % Ophthalmic Solution (Refresh) Instill 1 Drop into both eyes every evening for 10 days. 10 Each 09/20/192024 Active Polyethylene Glycol 3350 17 GM Oral Packet (Miralax) Take 1 Packet by mouth daily as needed for Constipation. 14 Each 09/20/19 Active Furosemide 40 MG Oral Tablet (Lasix) Take 1 Tablet by mouth in the morning. 30 Tablet 09/21/192024 Active Digoxin 125 MCG Oral Tablet (Lanoxin) Take 1 Tablet by mouth in the morning. 30 Tablet 09/21/19 25 2024 Active Metoprolol Succinate ER 100 MG Oral Tablet Extended Release 24 Hour (toPROL XL) Take 1 Tablet by mouth in the morning. 30 Tablet 09/20/19 25 2024 Active Divalproex Sodium 125 MG Oral Capsule Delayed Release Sprinkle (Depakote Sprinkle) Take 1 Capsule by mouth every 8 hours as needed for Agitation (agitation) for up to 10 days. 10 Capsule 09/20/19 25 2024 Active AMBULATORY MISCELLANEOUS MEDICATION Dorzolamide HCI-Timolol 22.3-6.8: Administer 1 drop in both eyes twice daily 2024 Discontinued documented as of this encounter (statuses as of 09/22/2024) Active Problems Problem Noted Date Diagnosed Date [...] as of this encounter (statuses as of 09/22/2024) Resolved Problems Problem Noted Date Diagnosed Date Resolved Date Atrial fibrillation with RVR 09/13/2024 09/22/2024 Acute respiratory failure with hypoxia 09/13/2024 09/22/2024 Pulmonary edema 09/12/2024 09/22/2024 Heart failure, systolic, wit h acute decompensation 09/12/2024 09/22/2024 Ac isch multi vasc territories stroke 09/06/2024 09/22/2024 Stroke-like symptoms 09/05/2024 025 documented as of this encounter (statuses as of 09/22/2024) Social History Tobacco Use Types Packs/Day Years [...] Entry Date Author No 09/05/2024 2:00 PM Ivett Wynne RN documented in this encounter Progress Notes * Kayden Ray MD - 09/22/2024 12:24 PM EST ADMISSION HISTORY and PHYSICAL TRANSITION EVENT: Type: SNF admission Date: September 21 Code Status: No Code Name: Goran Brandt Date of : 1935 This note pertains to care provided at [facility]. Please see facility medical record for original note. This note is not to be edited or addended in [employer]. Editing or addending needs to occur in the facilities medical record. S: Goran Brandt had been admitted to [facility] from [facility] for PT and OT.Recently admitted to [facility] on 09/05/24 because of intraparenchymal hematoma of left temporal lobe, new onset atrial fibrillation with RVR, acute decompensation of systolic CHF (EF 30%), and acute left MCA stroke with hemorrhagic conversion, and severe hyperactive delirium and was transferred here and admitted on 09/21/2024. Patient of Dr. Ruby with PMH of type 2 diabetes mellitus,hypertension, dyslipidemia, CAD with h/o SD and cardiac stent x 5, systolic CHF with EF 30%, stage 3b CKD, depression, and h/o prior CVA of posterior/occipital lobes with weakness requiring walker who initially presented to [facility] with change in mental status with agitation at [facility]. He had a head CT showing a 4.1 x 2.8 cm intraparenchymal hematoma within the left temporal lobe. He was given 2 g of Keppra IV for seizure prophylaxis and life flighted to [facility] for further evaluation. On arrivalto [facility], he was alert but confused and only oriented to self. At [facility], head CT on arrival showed: Suspected left MCA-territory ischemic infarction with stable left temporal hemorrhagic conversion and mild local mass effect. Head and neck CTA showed nonvisualization of origin of right vertebral artery and mild to moderate scattered atherosclerosis of left vertebral artery and bilateral carotid arteries. MRI of the brain showed evolving left temporal lobe intraparenchymal hematoma with surrounding edema and stable (overall mild) mass-effect, favoring hemorraghic transformation/secondary hematoma within a recent left MCA territory infarct. An underlying lesion such as cerebral amyloid angiopathy, AVM or mass lesion are not entirely excluded and additionalscattered foci of bilateral cerebral hemispheric peripheral late acute/early subacute infarcts, possibly cardioembolic given distribution. Patient was seen by neurology and cardiology. Patient developed new onset atrial fibrillation with RVR as well as acute flash pulmonary edema from decompensated CHF. Echo showed reduced EF of 30%. His heart rate was controlled with metoprolol and digoxin. He was diuresed with a Lasix infusion and eventually tapered to oral 40 mg daily. Patient was noted to have the acute stroke as well as multiple acute territory strokes felt to be cardioembolic. Neurology recommended starting anticoagulation after 10/03/24 and to stop aspirin once the anticoagulation is started. Patient had delirium throughout hospitalization. He was seen by psychiatry, who discontinued his citalopram and started Trazodone 3 times a day (but was sent on a tapering to discontinuation dose of this), Seroquel that was uptitrated to 100 mg at bedtime, and Depakote 125 mg every 8 hours as needed for agitation. Patient had follow-up head CT scans on 09/06/24 and 09/12/24 that showed stable size of hematoma and ongoing expected evolution of strokes. Patient is now admitted for PT/OT. Patient lived at [facility] prior to admission. According to hospital notes, he had history of some short-term memory loss but no official known diagnosis of dementia. Patient has been confused since arrival. He has been requiring close supervision by nursing staff. Patient was heard yelling loudly at 2:00 AM and found sitting on the floor without any clothes on. Patient was also self-ambulating/wandering last evening and went into several rooms. Wander guardin place. Patient is confused and oriented only to self. States the year is '62 or 63. Does not know the President. States he is at "[employer] He does not answer most other questions but then closes eyes. He is frequently yelling out "good afternoon" although it is morning and singing "yo-ho, yo-ho." Past Medical History: Patient Active Problem List Diagnosis Intraparenchymal hemorrhage of brain ([facility]) HFrEF (heart failure with reduced ejection fraction) ([facility]) Dyslipidemia, goal LDL below 70 Delirium due to multiple etiologies, acute, hyperactive Encephalopathy acute History of CAD (coronary artery disease) Atrial fibrillation ([facility]) Depression History of CVA (cerebrovascular accident) Hypertension goal BP (blood pressure) < 140/90 Stage 3b chronic kidney disease (CKD) ([facility]) S/P coronary artery stent placement History of cardioembolic stroke Current Outpatient Medications Medication Sig Dispense Refill Dorzolamide HCl-Timolol Mal 2-0.5 % Ophthalmic Solution (Cosopt Ocumeter Plus) Instill 1 Drop into eye in the morning and 1 Drop before bedtime. Lisinopril 5 MG Oral Tablet (Prinivil) Take 1 Tablet by mouth in the morning. metFORMIN HCl ER 500 MG Oral Tablet Extended Release 24 Hour (Glucophage XR) Take 2 Tablets by mouth in the morning and 2 Tablets before bedtime. Dulaglutide 4.5 MG/0.5ML Subcutaneous Solution Auto-injector (P3 New Media) Inject 4.5 mg under the skin every Thursday. Aspirin 81 MG Oral Tablet Delayed Release Take 1 Tablet by mouth in the morning. Atorvastatin Calcium 40 MG Oral Tablet (Lipitor) Take 1 Tablet by mouth in the morning. Pantoprazole Sodium 40 MG Oral Tablet Delayed Release (Protonix) Take 1 Tablet by mouth in the morning. Cholecalciferol 50 MCG (1999 UT) Oral Tablet Take 1 Tablet by mouth in the morning. cycloSPORINE 0.05 % Ophthalmic Emulsion (Restasis) Instill 1 Drop into both eyes in the morning and1 Drop before bedtime. Melatonin 5 MG Oral Capsule Take 1 Capsule by mouth at bedtime. Ferrous Sulfate 325 (65 Fe) MG Oral Tablet (Feosol) Take 1 Tablet by mouth daily with breakfast. Finasteride 5 MG Oral Tablet (Proscar) Take 1 Tablet by mouth in the morning. traZODone HCl 50 MG Oral Tablet (Desyrel) Take 0.5 Tablets by mouth every night at bedtime for 10 days. 5 Tablet 0 traZODone HCl 50 MG Oral Tablet (Desyrel) Take 0.25 Tablets by mouth in the morning and 0.25 Tablets at noon. Do all this for 10 days. 5 Tablet 0 Tamsulosin HCl 0.4 MG Oral Capsule (Flomax) Take 1 Capsule by mouth in the morning for 10 days. 10 Capsule 0 Spironolactone 25 MG Oral Tablet (Aldactone) Take 1 Tablet by mouth in the morning for 10 days. 10 Tablet 0 Sodium Bicarbonate 650 MG Oral Tablet Take 1 Tablet by mouth in the morning and 1 Tablet before bedtime. Do all this for 10 days. 20 Tablet 0 Sennosides 8.6 MG Oral Tablet (Senokot) Take 1 Tablet by mouth in the morning for 10 days. 10 Tablet 0 QUEtiapine Fumarate 100 MG Oral Tablet (SEROquel) Take 1 Tablet by mouth every night at bedtime for10 days. 10 Tablet 0 Polyvinyl Alcohol-Povidone PF 1.4-0.6 % Ophthalmic Solution (Refresh) Instill 1 Drop into both eyesevery evening for 10 days. 10 Each 0 Polyethylene Glycol 3350 17 GM Oral Packet (Miralax) Take 1 Packet by mouth daily as needed for Constipation. 14 Each 0 Furosemide 40 MG Oral Tablet (Lasix) Take 1 Tablet by mouth in the morning. 30 Tablet 0 Digoxin 125 MCG Oral Tablet (Lanoxin) Take 1 Tablet by mouth in the morning. 30 Tablet 0 Metoprolol Succinate ER 100 MG Oral Tablet Extended Release 24 Hour (toPROL XL) Take 1 Tablet by mouth in the morning. 30 Tablet 0 Divalproex Sodium 125 MG Oral Capsule Delayed Release Sprinkle (Depakote Sprinkle) Take 1 Capsule by mouth every 8 hours as needed for Agitation (agitation) for up to 10 days. 10 Capsule 0 No current facility-administered medications for this visit. Review of patient's allergies indicates: No Known Allergies Social History Tobacco Use Smoking status: Former Types: Cigarettes Smokeless tobacco: Not on file Substance Use Topics Alcohol use: Never Vaping/E-Cigarette Use Vaping/E-Cigarette Substances Vaping/E-Cigarette Devices No past surgical history on file. No family history on file. No family status information on file. CBC Results: Results for orders placed or performed during the hospital encounter of 09/05/24 CBC Result Value Ref Range WBC 8.56 4.00 - 10.80 K/uL RBC 3.81 4.50 - 5.25 M/uL HGB 10.8 (L) 14.0 - 16.8 g/dL HCT 34.2 (L) 40.0 - 48.4 % MCV 89.8 82.0 - 99.5 fL MCH 28.3 27.0 - 34.0 pg MCHC 31.6 32.0 - 36.0 g/dL RDW 13.7 11.5 - 15.5 % PLT 169 140 - 400 K/uL MPV 10.3 6.6 - 11.1 fL nRBCs 0 <=0 /100 WBCs Hemoglobin AIC Results: Lab Results Component Value Date/Time HEMOGLOBIN A1C - [facility] 6.9 (H) 09/07/2024 05:32 AM HEMOGLOBIN A1C - [facility] 6.5 (H) 01/04/2024 06:40 AM Basic Panel Results: Results for orders placed or performed during the hospital encounter of 09/05/24 BASIC METABOLIC PANEL Result Value Ref Range BUN 8 6 - 20 mg/dL CREATININE 1.6 (H) 0.6 - 1.2 mg/dL EGFR 40 (L) >=60 mL/min SODIUM 139 135 - 146 mmol/L POTASSIUM 3.7 3.5 - 5.1 mmol/L CHLORIDE 102 98 - 107 mmol/L CO2 26 22 - 32 mmol/L ANION GAP 11 7 - 15 mmol/L GLUCOSE 160 (H) 70 - 120 mg/dL CALCIUM 8.5 8.4 - 10.2 mg/dL Lipid Panel Results: Results for orders placed or performed in visit on 01/04/24 LIPID PANEL WITHOUT DIRECT LDL Result Value Ref Range Triglycerides 112 <=174 mg/dL Cholesterol 94 <200 mg/dL HDL Cholesterol 37 (L) >39 mg/dL Non-HDL Cholesterol 57 <=159 mg/dL LDL Cholesterol 35 <=129 mg/dL Results for orders placed or performed during the hospital encounter of 09/05/24 LIPID PANEL WITH DIRECT LDL IF TG IS HIGH Result Value Ref Range Triglycerides 99 <=174 mg/dL Cholesterol 99 <200 mg/dL HDL Cholesterol 37 (L) >39 mg/dL Non-HDL Cholesterol 62 <=159 mg/dL LDL Cholesterol 42 <=129 mg/dL ALT Results: Lab Results Component Value Date/Time ALT - [facility] 15 09/05/2024 02:07 PM ALT - [facility] 16 01/04/2024 06:40 AM ALT - [facility] 20 01/21/2023 02:17 PM Lab Results Component Value Date/Time TSH - [facility] 1.50 01/04/2024 06:40 AM Review of Systems: Unable to obtain secondary to confusion/delirium ADL skills: dependent Ambulates with walker OBJECTIVE: PHYSICAL EXAM: I reviewed the most recent facilities vitals. Refer to vital signs flowsheet in jail chart.General: alert, no distress, well nourished, well developed, and seated in a wheelchair near the nurse's station Head: Normocephalic, No masses, lesions, tenderness or abnormalities Eye Exam: PERRLA, extraocular movements intact, conjunctiva are pink and non- injected, sclera clear Ears: External ears normal Nose: no mucosal erythema, no mucosal edema, no purulent discharge Oropharynx: no exudate, no erythema, lips, buccal mucosa, and tongue normal, and mucous membranes are moist Neck: supple, no adenopathy, no bruits Heart: no gallops and irregularly irregular Lungs: chest symmetric with normal AP diameter, no chest deformities noted, no chest wall tenderness, lungs clear to auscultation Abdomen: abdomen soft, non-tender, normal bowel sounds, and no masses or organomegaly Extremities: no edema, no clubbing, no cyanosis Neuro Exam: alert and oriented to self. Appears to move all 4 extremities spontaneously but has difficulty following commands ASSESSMENT: Intraparenchymal hemorrhage of brain (HCC) (Primary)--bleed remained stable on serial imaging. Is to follow-up with neurology and appointment is scheduled for December. Neurology at [facility] had recommended starting anticoagulation for atrial fibrillation after 10/03/24. Hemorrhage appears to be due to hemorrhagic conversion of acute left MCA stroke. Delirium due to multiple etiologies, acute, hyperactive--patient remains extremely confused, agitated, yelling out, and wandering. Will continue medications started by psychiatry while admitted, including Trazodone 25 mg in AM and at noon and 50 mg at bedtime, Seroquel 100 mg at bedtime, and depakote 125 mg every 8 hours as needed. Strongly suspect underlying dementia (probable vascular) and suspect this will progress due to new left MCA CVA as well as multiple subacute cardioembolic strokes. History of CVA (cerebrovascular accident)--as above. S/p occipital stroke in 2022 and now with multiple embolic strokes and left MCA stroke with hemorrhagic conversion. Continue aspirin for now and neurology recommending change to anticoagulation and stopping aspirin after 10/03/24. History of cardioembolic stroke--as above. Neurology recommended anticoagulation after 10/03/24. Paroxysmal atrial fibrillation (HCC)--newly diagnosed. Rate controlled with digoxin 125 mcg daily and metoprolol succinate 100 mg daily. Is scheduled for cardiology follow-up 09/29/24 and would defer anticoagulation to cardiology. Neurology recommended starting anticoagulation and stopping aspirin after 10/03/24. HFrEF (heart failure with reduced ejection fraction) ([facility])--EF of 30%. Started on furosemide 40 mg daily and Spironolactone 25 mg daily. Check BMP. Dyslipidemia, goal LDL below 70--continue atorvastatin 40 mg daily. History of CAD (coronary artery disease)--continue beta emily, statin, ans aspirin for now. Hypertension goal BP (blood pressure) < 140/90--continue lisinopril 5 mg daily, metoprolol succinate 100 mg daily Stage 3b chronic kidney disease (CKD) ([facility])--check BMP S/P coronary artery stent placement--follow-up with cardiology as scheduled. Type 2 diabetes mellitus with stage 3b CKD without use of insulin--A1C at goal. Continue metformin ER 1000 mg twice daily and Trulicity 4.5 mg weekly. PLAN: 1. Continue present medication(s): Referral(s) to: Psychiatry in house for management with severe delirium, probable underlying dementia and agitation/behaviors Schedule labs: CBC w/diff, BMP, and Digoxin level 2. Admission orders, medications, labs, hospital records and care plan reviewed. 3. Svp Group Director consult, Physical Therapy, Occupational Therapy, and Speech Therapy ordered. 4. Care plan reviewed. 5. Advance Directives were discussed: The patient is a DNR 6. Detention Home Treatment Given: n/a Electronically signed by: Kayden Ray MD I spent a total of 40-54 minutes (exact time 52 mins) on the date of service in preparation, delivery, and documentation of the care provided to Goran Brandt excluding any time spent in the performance of separately billed services or time spent by another provider/QHP. documented in this encounter Plan of Treatment Upcoming Encounters Date Type Department Care Team (Late st Contact Info) Description 09/29/2024 9:30 AM EST Office Visit Cardiology, [facility] [address] [place] [address] Ksenia Arenas CRNP [address] [place] [address] 11/29/2024 3:00 PM EDT Office Visit Neurosurgery, [place] [address] [place] [address] Haider Quinn MD [address] [place] [address] 01/04/2025 11:20 AM EDT Telemedicine Neurology [facility] [place] [address] [place] [address] Sagar Ohara MD [address] [place] [address] [facility] [address] [place] [address] Health Maintenance Due Date Last Done Comments [...] as of this encounter Visit Diagnoses Diagnosis Intraparenchymal hemorrhage of brain (HCC)- Primary Intracerebral hemorrhage Delirium due to multiple etiologies, acute, hyperactive History of CVA (cerebrovascular accident) Transient ischemic attack (TIA), and cerebral infarction without residual deficits History of cardioembolic stroke Paroxysmal atrial fibrillation (HCC) Atrial fibrillation HFrEF (heart failure with reduced ejection fraction) ([facility]) Dyslipidemia, goal LDL below 70 Other and unspecified hyperlipidemia History of CAD (coronary artery disease) Hypertension goal BP (blood pressure) < 140/90 Unspecified essential hypertension Stage 3b chronic kidney disease (CKD) (HCC) S/P coronary artery stent placement Postsurgical percutaneous transluminal coronary angioplasty status Type 2 diabetes mellitus with stage 3b chronic kidney disease, without long-term current use of insulin ([facility]) documented in this encounter Advance Directives Documents on File Type Date Recorded Patient Grain Drier Expl anation Advance Directives and Living Will 09/20/2024 signed on 05/15/2021 ADVANCE DIRECTIVE / LIVING WILL Power of Vice President Of Brand Management 09/20/2024 signed on 05/15/2021 POWER OF BILL CHECKER * No Code (Latest Code Status [...] the patient have Health Care Power of Vice President Of Brand Management? No Care Teams Range Management Specialist Relationship Specialty Start Date End Date Pro, Jeremy Lanza MD [address] [place] [address] PCP - General Internal Medicine 08/27/24 documented as of this encounter
--- OUTSIDE RECORDS SUMMARY | 2024-09-26 19:29 | External Medical Summary ---
Author Name Unknown Address Unknown Organization [id number]:[facility] [place] [address] [facility] [address] Laboratory Report Ordering Provider Test Date Status ROMAN ARANGO 09/23/2024 06:54:02 Final Observation Date Value Abnormality Reference (Units ) Status SYNC LEUKOCYTES IN BLOOD BY AUTOMATED COUNT 09/23/2024 06:54:02 10.22 4.00-10.80 (K/uL) Final Segs 09/23/2024 06:54:02 71.1 40.0-75.0 (%) Final Lymphs % 09/23/2024 06:54:02 14.7 Below low normal 18.0-42.0 (%) Final Monos 09/23/2024 06:54:02 10.0 1.0-11.0 (%) Final Eosinophils 09/23/2024 06:54:02 4.1 0.0-6.0 (%) Final Basos 09/23/2024 06:54:02 0.1 0.0-2.0 (%) Final Absolute Segs 09/23/2024 06:54:02 7.27 1.80-7.70 (K/uL) Final Lymphs, absolute 09/23/2024 06:54:02 1.50 1.00-4.80 (K/ul) Final Monos, Abs 09/23/2024 06:54:02 1.02 0.00-1.10 (K/uL) Final Eos, Abs 09/23/2024 06:54:02 0.42 0.00-0.70 (K/uL) Final Basos, Abs 09/23/2024 06:54:02 0.01 0.00-0.20 (K/uL) Final Performing Location [facility] [address] [place] [address]
--- OUTSIDE RECORDS SUMMARY | 2024-09-26 19:29 | External Medical Summary ---
Author Name Unknown Address Unknown Organization [id number]:LABORATORY [facility] [place] - [address] [place] [address] Laboratory Report Ordering Provider Test Date Status ROMAN ARANGO 09/23/2024 06:54:02 Final Recommended trough therapeut ic ranges:
0.5 to 0.8 for heart failure
0.5 to 1.1 for atrial fibrillation Observation Date Value Abnormality Reference (Units ) Status Digoxin 09/23/2024 06:54:02 1.0 0.5-1.1 (n g/mL) Final Performing Location LABORATORY [facility] - [address] [place] [address]
--- OUTSIDE RECORDS SUMMARY | 2024-09-26 19:29 | External Medical Summary | Summary of Care ---
Author Name Unknown Organization [facility] Address [address] [place] [address] Phone [phone] Care Team Providers Care Oversize Load Pilot Escort Name Role Phone , Jeremy Lanza MD Primary Care Provider [phone]- [phone] Reason for Visit * Reason Onset Date Comments Skilled Visit 09/23/2024 Encounter Details Date Type Department Care Team (Late st Contact Info) Description 09/23/2024 9:15 AM [facility] Visit [facility] [place] [address] [place] [address] Esther Matute PA-C [address] [place] [address] Delirium due to multiple etiologies, acute, hyperactive*; History of CVA (cerebrovascular accident); Intraparenchymal hemorrhage of brain ([facility]); Paroxysmal atrial fibrillation ([facility]); HFrEF (heart failure with reduced ejection fraction) ([facility]); Hypotension due to drugs; Urinary retention; Type 2 diabetes mellitus with stage 3b chronic kidney disease, without long-term current use of insulin ([facility]); EFFIE (acute kidney injury) ([facility]) Allergies No known active allergiesdocumented as of this encounter (statuses as of 09/23/2024) Medications Dorzolamide HCl-Timolol Mal 2-0.5 % Ophthalmic [...] Active Dulaglutide 4.5 MG/0.5ML Subcutaneous Solution Auto-injector ([employer]raise) Inject 4.5 mg under the skin every [...] as of this encounter (statuses as of 09/23/2024) Active Problems Problem Noted Date Diagnosed Date [...] as of this encounter (statuses as of 09/23/2024) Resolved Problems Problem Noted Date Diagnosed Date Resolved Date Atrial fibrillation with RVR 09/13/2024 09/22/2024 Acute respiratory failure with hypoxia 09/13/2024 09/22/2024 Pulmonary edema 09/12/2024 09/22/2024 Heart failure, systolic, wit h acute decompensation 09/12/2024 09/22/2024 Ac isch multi vasc territories stroke 09/06/2024 09/22/2024 Stroke-like symptoms 09/05/2024 025 documented as of this encounter (statuses as of 09/23/2024) Social History Tobacco Use Types Packs/Day Years Used Date Smoking Tobacco: Former Cigarettes Alcohol Use Standard Drinks/Week Comments Never 0 (1 standard drink = 0.6 oz pur e alcohol) Sex and Gender Information Value Date Recorded Sex Assigned at Not on file Legal Sex Male 2:11 PM EDT Gender Identity Not on file Sexual Orientation Not on file documented as of this encounter Last Filed Vital Signs Vital Sign Reading Time Taken Comments Blood Pressure 91/63 09/23/2024 11:30 AM EST Pulse 120 09/23/2024 11:30 AM EST Temperature 36.9 C (98.5 F) 09/23/2024 11:[address] Respiratory Rate 18 09/23/2024 11:30 AM EST Oxygen Saturation 93% 09/23/2024 11:30 AM EST room air Inhaled Oxygen Concentration - - Weight 90.7 kg (200 lb) 09/23/2024 11:30 AM EST Height - - Body Mass Index 29.53 09/05/2024 2:00 PM EST documented in this encounter Functional Status * Are you [...] documented in this encounter Progress Notes * Esther Matute PA-C - 09/23/2024 9:15 AM EST Name: Goran Brandt Date of : 1935 This note pertains to care provided at [facility]. Please see facility record for original note. This note is not to be edited or addended in [facility]. Editing or addending needs to occur in the facility's medical record. Chief Complaint Patient presents with Skilled Visit Type: Skilled visit Date: September 23 Code Status: No Code SUBJECTIVE: Goran Brandt is a 89 year old male HPI: medically complex pt recently hospitalized with acute change in mental status and findings of intralaryngeal hemorrhage in the left temporal lobe, transferred to [facility] with additional findings of recent left MCA territory infarct and suspicion of hemorrhagic conversion, complicated by new onset atrial fibrillation with RVR and acute CHF, hyperactive delirium requiring psychiatry involvement. Staff report urinary frequency, urgency, bladder scanned for over 200 ml overnight last night aftermultiple attempts at voiding without success. Pt already on finasteride + flomax. He did have similar issues in the hospital. He was bladder scanned this am after several additional requests to use the restroom and had minimal residual noted in bladder. HR often over 100 bpm, 120 bpm at time of exam today. He continues on digoxin and metoprolol succinate per recent cardiology recommendations. BP low today. He has been restless and frequently getting up, wandering, somewhat agitated. Did not sleep overnight last night, per staff. Son reports occasional hallucinations. He denies complaint today, though he was not cooperative with the visit. Typical lifestyle is sleeping in until around noon and going to bed around midnight, per son. Routine follow up labs today indicate rising creatinine to 2.3, baseline appears to be 1.4-1.6, most recently 1.6 on 09/20/24. PMH: Patient Active Problem List Diagnosis Intraparenchymal hemorrhage of brain ([facility]) HFrEF (heart failure with reduced ejection fraction) ([facility]) Dyslipidemia, goal LDL below 70 Delirium due to multiple etiologies, acute, hyperactive Encephalopathy acute History of CAD (coronary artery disease) Atrial fibrillation ([facility]) Depression History of CVA (cerebrovascular accident) Hypertension goal BP (blood pressure) < 140/90 Stage 3b chronic kidney disease (CKD) ([facility]) S/P coronary artery stent placement History 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 Review of Systems: Per HPI OBJECTIVE: BP 91/63 | Pulse 120 | Temp 36.9 C (98.5 F) | Resp 18 | Wt 90.7 kg (200 lb) | SpO2 93% Comment: room air | BMI 29.53 kg/m | BSA 2.1 m General: alert and somewhat restless, standing frequently, Head: Normocephalic Oropharynx: lips, buccal mucosa, and tongue normal and mucous membranes are moist Heart: irregularly irregular and tachycardia Lungs: chest symmetric with normal AP diameter, no chest deformities noted, no chest wall tenderness, lungs clear to auscultation Abdomen: abdomen soft, non-tender, normal bowel sounds, no masses or organomegaly, and no rebound or guarding Extremities: less than 2 second capillary refill, no joint deformities, effusion, or inflammation, no edema Neuro Exam: alert & oriented x 1-2 with fluent speech, somewhat irritable, unstable gait Skin: pink, warm, dry, multiple scabs and bruises on the arms Results for orders placed or performed in visit on 09/23/24 BASIC METABOLIC PANEL Result Value Ref Range BUN 14 6 - 20 mg/dL CREATININE 2.3 (H) 0.6 - 1.2 mg/dL EGFR 27 (L) >=60 mL/min SODIUM 139 135 - 146 mmol/L POTASSIUM 4.5 3.5 - 5.1 mmol/L CHLORIDE 99 98 - 107 mmol/L CO2 25 22 - 32 mmol/L ANION GAP 15 7 - 15 mmol/L GLUCOSE 158 (H) 70 - 120 mg/dL CALCIUM 8.8 8.4 - 10.2 mg/dL DIGOXIN LEVEL Result Value Ref Range Digoxin Level 1.0 0.5 - 1.1 ng/mL ANEMIA CBC Result Value Ref Range WBC 10.22 4.00 - 10.80 K/uL RBC 3.90 4.50 - 5.25 M/uL HGB 11.2 (L) 14.0 - 16.8 g/dL HCT 35.3 (L) 40.0 - 48.4 % MCV 90.5 82.0 - 99.5 fL MCH 28.7 27.0 - 34.0 pg MCHC 31.7 32.0 - 36.0 g/dL RDW 14.1 11.5 - 15.5 % PLT 254 140 - 400 K/uL MPV 11.2 6.6 - 11.1 fL DIFFERENTIAL, AUTOMATED Result Value Ref Range WBC 10.22 4.00 - 10.80 K/uL Neutrophils % 71.1 40.0 - 75.0 % Lymphocytes % 14.7 (L) 18.0 - 42.0 % Monocytes % 10.0 1.0 - 11.0 % Eosinophils % 4.1 0.0 - 6.0 % Basophils % 0.1 0.0 - 2.0 % Absolute Neutrophils 7.27 1.80 - 7.70 K/uL Absolute Lymphocytes 1.50 1.00 - 4.80 K/ul Absolute Monocytes 1.02 0.00 - 1.10 K/uL Absolute Eosinophils 0.42 0.00 - 0.70 K/uL Absolute Basophils 0.01 0.00 - 0.20 K/uL TSH Result Value Ref Range TSH 1.38 0.27 - 4.20 uIU/mL Results reviewed with son ASSESSMENT/PLAN: [facility] chart (outside system) reviewed for vital signs, nursing notes, CODE STATUS, and most up to date medication list Discussed management with other clinician during the visit (facility RN) Delirium due to multiple etiologies, acute, hyperactive (Primary) History of CVA (cerebrovascular accident) Intraparenchymal hemorrhage of brain ([facility]) Refer to geriatric psychiatry - family in agreement with this Behaviors labile with hallucinations Paroxysmal atrial fibrillation ([facility]) Continue metoprolol and digoxin for rate control Low BP may be contributing to higher rate today Holding meds as noted below HFrEF (heart failure with reduced ejection fraction) ([facility]) Daily weights Hypotension due to drugs Hold lisinopril if systolic BP less than 100 Urinary retention Continue flomax and finasteride Bladder scan, post void, every shift and straight cath if needed for over 300 ml in bladder Type 2 diabetes mellitus with stage 3b chronic kidney disease, without long-term current use of insulin ([facility]) Monitor glucose 3x weekly EFFIE (acute kidney injury) ([facility]) Weigh today Hold lasix and spironolactone x 2 days and follow weights, hold lisinopril, hold metformin BMP Thursday Spoke at length with son via phone. His questions were answered to his satisfaction. Follow up: Thursday 83 total minutes were spent in this visit. This total time includes pre-visit chart review, obtaining / reviewing separately obtained medical history, and performing the medically appropriate historyand exam. It also includes patient / family education and counseling, placing the appropriate orders, placing referrals and communicating with other medical providers, documenting clinical information in the EHR, interpreting / communicating results, and coordinating patient care. documented in this encounter Plan of Treatment Upcoming Encounters Date Type Department Care Team (Late st Contact Info) Description 09/29/2024 9:30 AM EST Office Visit Cardiology, [facility] [address] [place] [address] Ksenia Arenas CRNP [address] [place] [address] 11/29/2024 3:00 PM EDT Office Visit Neurosurgery, [place] [address] [place] [address] Haider Quinn MD [address] [address], [place] [id number] 01/04/2025 11:20 AM EDT Telemedicine Neurology [address] [place] [address] [place] [address] Sagar Ohara MD [address] [place] [address] [facility] [address] [place] [address] Health Maintenance Due Date Last Done Comments Depression Monitoring 1947 Diabetic Eye Exam 1955 Diabetic Foot Exam 1955 DTap/Tdap Vaccines (1 - Tdap) 1954 Pneumococcal Vaccine: 50+ Years (1 of 2 - PCV) 1956 Zoster Vaccines (1 of 2) 1987 COVID-19 Vaccine ( - 2023-2 5 season) 2024 Influenza Vaccine [...] as of this encounter Visit Diagnoses Diagnosis Delirium due to multiple etiologies, acute, hyperactive- Primary History of CVA (cerebrovascular accident) Transient ischemic attack (TIA), and cerebral infarction without residual deficits Intraparenchymal hemorrhage of brain (HCC) Intracerebral hemorrhage Paroxysmal atrial fibrillation (HCC) Atrial fibrillation HFrEF (heart failure with reduced ejection fraction) (HCC) Hypotension due to drugs Other iatrogenic hypotension Urinary retention Retention of urine, unspecified Type 2 diabetes mellitus with stage 3b chronic kidney disease, without long-term current use of insulin (HCC) EFFIE (acute kidney injury) (HCC) Acute kidney failure, unspecified documented in this encounter Advance Directives Documents on File Type Date Recorded Patient Senior Media Buyer Expl anation Advance Directives and Living Will 09/20/2024 signed on 05/15/2021 ADVANCE DIRECTIVE / LIVING WILL Power of Rail Maintenance Worker 09/20/2024 signed on 05/15/2021 POWER OF SHIPMASTER * No Code (Latest Code Status on [...] the patient have Health Care Power of Rail Maintenance Worker? No Care Teams Oversize Load Pilot Escort Relationship Specialty Start Date End Date Pro, Jeremy Lanza MD [address] [place] [address] PCP - General Internal Medicine 08/27/24 documented as of this encounter"
--- OUTSIDE RECORDS SUMMARY | 2024-09-26 19:29 | External Medical Summary ---
Author Name Unknown Address Unknown Organization [id number]:LABORATORY [facility] [place] - [facility] [address] [place] [address] Laboratory Report Ordering Provider Test Date Status ROMAN ARANGO 09/23/2024 06:54:02 Final Observation Date Value Abnormality Reference (Units ) Status Retic, % (auto) 09/23/2024 06:54:02 2.32 Above high normal 0.80-1.90 (%) Final Reticulocytes, Absolute 09/23/2024 06:54:02 90.9 31.3-100.1 (K/uL) Final Reticulocyte fraction, immature 09/23/2024 06:54:02 16.6 2.5-20.6 (%) Final Reticulocyte HGB 09/23/2024 06:54:02 31.1 29.7-37.4 (pg) Final Performing Location LABORATORY [facility] [place] - [facility] [address] [place] [address]
--- OUTSIDE RECORDS SUMMARY | 2024-09-26 19:29 | External Medical Summary ---
Author Name Unknown Address Unknown Organization [id number]:LABORATORY [facility] [address] - [address] [place] [address] Laboratory Report Ordering Provider Test Date Status ROMAN ARANGO 09/23/2024 06:54:02 Final Observation Date Value Abnormality Reference (Units ) Status WBC, Total 09/23/2024 06:54:02 10.22 4.00-10.8 0 (K/uL) Final RBC 09/23/2024 06:54:02 3.90 4.50-5.25 (M/uL) Final Hemoglobin 09/23/2024 06:54:02 11.2 Below low normal 14 .0-16.8 (g/dL) Final Anemia reflex testing trigge rs on a HGB < 12.0 for Females and HGB < 13.0 for Males in accordance with the WHO Anemia Guidelines
Anemia reflex testing triggers on a HGB < 12.0 for Females and HGB < 13.0 for Males in accordance with the WHO Anemia Guidelines HCT 09/23/2024 06:54:02 35.3 Below low normal 40. 0-48.4 (%) Final MCV 09/23/2024 06:54:02 90.5 82.0-99.5 (fL) Final MCH 09/23/2024 06:54:02 28.7 27.0-34.0 (pg) Final MCHC 09/23/2024 06:54:02 31.7 32.0-36.0 (g/dL) Final RDW 09/23/2024 06:54:02 14.1 11.5-15.5 (%) Final Platelets 09/23/2024 06:54:02 254 140-400 (K /uL) Final MPV 09/23/2024 06:54:02 11.2 6.6-11.1 ( fL) Final Performing Location LABORATORY [facility] - [address] [place] [address]
--- OUTSIDE RECORDS SUMMARY | 2024-09-26 19:29 | External Medical Summary ---
Author Name Unknown Address Unknown Organization [id number]:LAB[place]ORY [facility] [place] [address] [place] [address] Laboratory Report Ordering Provider Test Date Status ROMAN ARANGO 09/23/2024 06:54:02 Final Observation Date Value Abnormality Reference (Units ) Status TSH 09/23/2024 06:54:02 1.38 0.27-4.20 (uIU/mL) Final Performing Location LABORATORY [facility] - [address] [place] [address]
--- OUTSIDE RECORDS SUMMARY | 2024-09-26 19:30 | External Medical Summary | Summary of Care ---
Author Name Unknown Organization [facility] Address [address] [place] [address] Phone [phone] Care Team Providers Care Interpretative Dancer Name Role Phone Pro, Jeremy Lanza MD Primary Care Provider +1- [phone] Encounter Details Date Type Department Care Team (Late st Contact Info) Description 09/21/2024 Telephone [facility] [place] [address] [place] [address] Esther Matute PA-C [address] [place] [address] Allergies No known active allergiesdocumented as of this encounter (statuses as of 09/21/2024) Medications Dorzolamide HCl-Timolol Mal 2-0.5 % Ophthalmic [...] Active Dulaglutide 4.5 MG/0.5ML Subcutaneous Solution Auto-injector ([employer]) Inject 4.5 mg under the skin every [...] by mouth in the morning. 4 Active AMBULATORY MISCELLANEOUS MEDICATION Dorzolamide HCI-Timolol 22.3-6.8: Administer 1 drop in both eyes twice daily Active traZODone HCl 50 MG Oral Tablet (Desyrel) Take 0.5 Tablets by mouth every night at bedtime for 10 days. 5 Tablet 5 025 Active traZODone HCl 50 MG Oral Tablet (Desyrel) Take 0.25 Tablets by mouth in the morning and 0.25 Tablets at noon. Do all this for 10 days. 5 Tablet 5 025 Active Tamsulosin HCl 0.4 MG Oral Capsule (Flomax) Take 1 Capsule by mouth in the morning for 10 days. 10 Capsule 5 025 Active Spironolactone 25 MG Oral Tablet (Aldactone) Take 1 Tablet by mouth in the morning for 10 days. 10 Tablet 5 025 Active Sodium Bicarbonate 650 MG Oral Tablet Take 1 Tablet by mouth in the morning and 1 Tablet before bedtime. Do all this for 10 days. 20 Tablet 5 025 Active Sennosides 8.6 MG Oral Tablet (Senokot) Take 1 Tablet by mouth in the morning for 10 days. 10 Tablet 5 025 Active QUEtiapine Fumarate 100 MG Oral Tablet (SEROquel) Take 1 Tablet by mouth every night at bedtime for 10 days. 10 Tablet 5 Active Polyvinyl Alcohol-Povidone PF 1.4-0.6 % Ophthalmic Solution (Refresh) Instill 1 Drop into both eyes every evening for 10 days. 10 Each 5 Active Polyethylene Glycol 3350 17 GM Oral Packet (Miralax) Take 1 Packet by mouth daily as needed for Constipation. 14 Each 5 Active Furosemide 40 MG Oral Tablet (Lasix) Take 1 Tablet by mouth in the morning. 30 Tablet 5 Active Digoxin 125 MCG Oral Tablet (Lanoxin) Take 1 Tablet by mouth in the morning. 30 Tablet 5 Active Metoprolol Succinate ER 100 MG Oral Tablet Extended Release 24 Hour (toPROL XL) Take 1 Tablet by mouth in the morning. 30 Tablet 5 025 Active Divalproex Sodium 125 MG Oral Capsule Delayed Release Sprinkle (Depakote Sprinkle) Take 1 Capsule by mouth every 8 hours as needed for Agitation (agitation) for up to 10 days. 10 Capsule 5 Active documented as of this encounter (statuses as of 09/21/2024) Active Problems Problem Noted Date Diagnosed Date Atrial fibrillation with RVR 09/13/2024 Atrial fibrillation 09/13/2024 Acute respiratory failure with hypoxia Depression 09/13/2024 Pulmonary edema 09/12/2024 Heart failure, systolic, with acute decompensati on 09/12/2024 History of CAD (coronary artery disease) HFrEF (heart failure with reduced ejection fract ion) 09/07/2024 Dyslipidemia, goal LDL below 70 09/07/2024 Delirium due to multiple etiologies, acute, hype ractive 09/07/2024 Encephalopathy acute 09/07/2024 Ac isch multi vasc territories stroke 09/06/2024 Stroke-like symptoms 09/05/2024 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 documented as of this encounter (statuses as of 09/21/2024) Social History Tobacco Use Types Packs/Day Years [...] Ivett Wynne RN documented in this encounter Miscellaneous Notes * Telephone Encounter - Esther Matute PA-C - 09/21/2024 1:58 PM EST New admission to [facility] [place]ed hospital discharge medications for admission to facility Esther Matute PA-C documented in this encounter Plan of Treatment Upcoming Encounters Date Type Department Care Team (Late st Contact Info) Description 09/29/2024 9:30 AM EST Office Visit Cardiology, [facility] [address] [place] [address] [facility]sen[facility]renas CR[facility] [place] [address] 11/29/2024 3:00 PM EDT Office Visit Neurosurgery, [place] [address] [place] [address] Haider Quinn MD [address] [place] [address] 01/04/2025 11:20 AM EDT Telemedicine Neurology [address] [place] [address] [place] [address] Sagar Ohara MD [address] [place] [address] [facility] [address] [place] [address] Health Maintenance Due Date Last Done Comments Depression Monitoring 1947 DTap/Tdap Vaccines (1 - Tdap) 1954 Pneumococcal Vaccine: 50+ Ye ars (1 of 2 - PCV) 1956 Zoster Vaccines (1 of 2) 1987 COVID-19 Vaccine ( - 2023-2 5 season) 2024 Influenza Vaccine (FLU shot) (#1) 2024 HPV (Gardasil) Vaccine Aged Out No lo nger eligible based on patient's age to complete this topic Hepatitis B Vaccine Aged Out No longe r eligible based on patient's age to complete this topic MENINGOCOCCAL (MENACTRA/MENVEO) Aged Out No longer eligible based on patient's age to complete this topic Meningitis B Vaccine (Bexsero/Trumemba) Aged Out No longer eligible b ased on patient's age to complete this topic documented as of this encounter Medical Devices Not on filedocumented as of this encounter Advance Directives Documents on File Type Date Recorded Patient Esl Instructional Assistant Expl anation Advance Directives and Living Will 09/20/2024 signed on 05/15/2021 ADVANCE DIRECTIVE / LIVING WILL Power of Marble Setter 09/20/2024 signed on 05/15/2021 POWER OF STERILE PRODUCTS PROCESSOR * No Code (Latest Code Status on [...] the patient have Health Care Power of Marble Setter? No Care Teams Interpretative Dancer Relationship Specialty Start Date End Date Pro, Jeremy Lanza MD [address] [place] [address] PCP - General Internal Medicine 08/27/24 documented as of this encounter
--- OUTSIDE RECORDS SUMMARY | 2024-09-26 19:30 | External Medical Summary | Summary of Care ---
Author Name Unknown Organization [facility] Address [address] [place] [address] Phone [phone] Care Team Providers Care Supervisor [employer] Name Role Phone Pro, Jeremy Lanza MD Primary Care Provider [phone] Reason for Referral * Evaluate & Treat - Unlimited Visits (Within 10 days (routine)) - Authorized Specialty Diagnoses / Procedures Referred By Contact Referred To Contact Vascular Surgery / Cardiovascular Surgery Diagnoses Abnormal ankle brachial index (JENN) Andre Olson DO [address] [place] [address] Phone: tel: fax: Referral ID Status Reason Start Date Expiration Date Visits Requested Visits Authorized [id number] Authorized Specialty Services Required 09/10/2024 [id number] Question Answer Referral Priority Within 10 days (routine) Where should this appointment be scheduled? [facility] What condition is the patient being seen for? Leg Claudication / PAD / Ischemia Comments Patient admitted for stroke with hemorrhagic conversion. JENN on LLE 0.51, cannot be on anticoag for a month per neurology, holding DAPT (SAND BOBBER med) for same length of time (can start ASA in 7-10 days). Discharge Order * Precert (Within 10 days (routine)) - Authorized Specialty Diagnoses / Procedures Referred By Contkaren t Referred To Contact Radiology Diagnoses Intraparenchymal hemorrhage of brain (HCC) Procedures MRI BRAIN W WO CONTRAST Benito Solis MD [address] [place] [address] Phone: tel: fax: Referral ID Status Reason Start Date Expiration Date V isits Requested Visits Authorized [id number] Authorized 12/05/2024 999 [id number] Reason for Visit * Auth/Cert Specialty Diagnoses / Procedures Referred By Contac t Referred To Contact Diagnoses spontaneous intracranial head bleed Johanne Alicea MD [address] [place] [address] Phone: tel: fax: Admissions, [facility] [address] [place] [address] Referral ID Status Reason Start Date Expiration Date Visits Re quested Visits Authorized [id number] Encounter Details Date Type Department Care Team (Latest Contact Info) Description 09/05/2024 1:42 PM EST - 09/21/2024 10:36 AM EST Hospital Encounter [id number] [facility], [place] 4TH FLOOR [address], [place] [phone] Johanne Alicea MD [address], [place] Scott Frankel MD [facility] [address] [place], [place] Sagar Ohara MD [facility] [place] [address] Harper Recinos MD [facility] [address] [place], [place] Michelle Kaur MD [facility] [place] [address] Catalino Valentino MD [facility] [place] [address] Annette Carroll MD [facility] [address] [place], [place] Various: KRAVS,CDIQDC,EKG Discharge Disposition: SNF Allergies No known active allergiesdocumented as of this encounter (statuses as of 09/22/2024) Medications Dorzolamide HCl-Timolol Mal 2-0.5 % Ophthalmic Solution (Cosopt Ocumeter Plus) Instill 1 Drop into eye in the morning and 1 Drop before bedtime. Active Lisinopril 5 MG Oral Tablet (Prinivil) Take 1 Tablet by mouth in the morning. 01/06/20 24 Active metFORMIN HCl ER 500 MG Oral Tablet Extended Release 24 Hour (Glucophage XR) Take 2 Tablets by mouth in the morning and 2 Tablets before bedtime. 02/09/20 24 Active Dulaglutide 4.5 MG/0.5ML Subcutaneous Solution Auto-injector (121cast) Inject 4.5 mg under the skin every Thursday. 05/18/20 24 Active Aspirin 81 MG Oral Tablet Delayed Release Take 1 Tablet by mouth in the morning. 12/25/19 24 Active Atorvastatin Calcium 40 MG Oral Tablet (Lipitor) Take 1 Tablet by mouth in the morning. 07/05/20 24 Active Pantoprazole Sodium 40 MG Oral Tablet Delayed Release (Protonix) Take 1 Tablet by mouth in the morning. 01/12/20 24 Active Cholecalciferol 50 MCG (2000 UT) Oral Tablet Take 1 Tablet by mouth in the morning. 03/30/20 24 Active cycloSPORINE 0.05 % Ophthalmic Emulsion (Restasis) Instill 1 Drop into both eyes in the morning and 1 Drop before bedtime. 11/04/19 24 Active Melatonin 5 MG Oral Capsule Take 1 Capsule by mouth at bedtime. 07/05/20 24 Active Ferrous Sulfate 325 (65 Fe) MG Oral Tablet (Feosol) Take 1 Tablet by mouth daily with breakfast. 01/12/20 24 Active Finasteride 5 MG Oral Tablet (Proscar) Take 1 Tablet by mouth in the morning. 05/18/20 24 Active AMBULATORY MISCELLANEOUS MEDICATION Dorzolamide HCI-Timolol 22.3-6.8: Administer 1 drop in both eyes twice daily Active traZODone HCl 50 MG Oral Tablet (Desyrel) Take 0.5 Tablets by mouth every night at bedtime for 10 days. 5 Tablet 09/20/19 25 2024 Active traZODone HCl 50 MG Oral Tablet [...] the morning for 10 days. 10 Tablet 09/21/192024 Active Sodium Bicarbonate 650 MG Oral Tablet Take 1 Tablet by mouth in the morning and 1 Tablet before bedtime. Do all this for 10 days. 20 Tablet 09/20/192024 Active Sennosides 8.6 MG Oral Tablet (Senokot) Take 1 Tablet by mouth in the morning for 10 days. 10 Tablet 09/21/192024 Active QUEtiapine Fumarate 100 MG Oral Tablet [...] in the morning. 30 Tablet 09/21/192024 Active Metoprolol Succinate ER 100 MG Oral Tablet Extended Release 24 Hour (toPROL XL) Take 1 Tablet by mouth in the morning. 30 Tablet 09/20/192024 Active Divalproex Sodium 125 MG Oral Capsule Delayed Release Sprinkle (Depakote Sprinkle) Take 1 Capsule by mouth every 8 hours as needed for Agitation (agitation) for up to 10 days. 10 Capsule 09/20/19 25 2024 Active Metoprolol Succinate ER 50 MG Oral Tablet Extended Release 24 Hour (toPROL XL) Take 1.5 Tablets by mouth in the morning. 11/04/19 24 2024 Discontinued amLODIPine Besylate 2.5 MG Oral Tablet (Norvasc) Take 1 Tablet by mouth in the morning. 11/26/19 24 2024 Discontinued Citalopram Hydrobromide 10 MG Oral Tablet (CeleXA) Take 1 Tablet by mouth in the morning. 02/11/20 24 2024 Discontinued glipiZIDE ER 10 MG Oral Tablet Extended Release 24 Hour (glipiZIDE XL) Take 1 Tablet by mouth in the morning. 01/06/202024 Discontinued documented as of this encounter (statuses as of 09/22/2024) Active Problems Problem Noted Date Diagnosed Date Atrial fibrillation with RVR 09/13/2024 Atrial fibrillation 09/13/2024 Acute respiratory failure with hypoxia Depression 09/13/2024 Pulmonary edema 09/12/2024 Heart failure, systolic, with acute decompensati on 09/12/2024 History of CAD (coronary artery disease) 025 [...] Years Used Date Smoking Tobacco: Former Cigarettes Tobacco Cessation:Counseling Given: Not Answered Alcohol Use Standard Drinks/Week Comments Never 0 (1 standard drink = 0.6 oz pur e alcohol) Sex and Gender Information Value Date Recorded Sex Assigned at Not on file Legal Sex Male 2:11 PM EDT Gender Identity Not on file Sexual Orientation Not on file documented as of this encounter Last Filed Vital Signs Vital Sign Reading Time Taken Comments Blood Pressure 147/90 09/21/2024 5:58 AM EST Pulse 112 09/21/2024 5:58 AM EST Temperature 36.8 C (98.2 F) 09/21/2024 5:58 AM ES T Respiratory Rate 19 09/21/2024 5:58 AM EST Oxygen Saturation 90% 09/21/2024 5:58 AM EST Inhaled Oxygen Concentration - - Weight 93.4 kg (206 lb) 09/21/2024 2:16 AM EST Height 175.3 cm (5' 9") 09/05/2024 2:00 PM EST Body Mass Index 30.42 09/05/2024 2:00 PM EST documented in this [...] Ivett Wynne RN documented in this encounter Discharge Summaries * Annette Carroll MD - 09/21/2024 10:36 AM EST Images from the original note were not included. [id number] [address] Admission Date: 09/05/2024 Discharge Date: 09/21/2024 RECOMMENDED TO DO FOR NEXT PROVIDER(S): Follow up with PCP Follow up with Cardiology Follow up with Neurology REASON(S) FOR MEDICATION CHANGE(S): Increase Toprol dose to 100 mg daily Start taking digoxin 125 mcg daily Start taking spironolactone 25 mg daily Start taking lisinopril 10 mg daily Start taking Lasix 40 mg daily Continue taking aspirin and Lipitor Stopped taking amlodipine Stop taking Celexa Start taking Seroquel 100 mg q.h.s. Start taking trazodone 25 mg at night, 12.5 mg twice daily during the daytime Can use Depakote 125 mg sprinkles as needed for agitation DISPOSITION ON DISCHARGE: SNF Active Hospital Problems Diagnosis *Principal Diagnosis - Intraparenchymal hemorrhage of brain (HCC) Atrial fibrillation with RVR (HCC) Atrial fibrillation (HCC) Acute respiratory failure with hypoxia (HCC) Depression Pulmonary edema Heart failure, systolic, with acute decompensation (HCC) History of CAD (coronary artery disease) HFrEF (heart failure with reduced ejection fraction) (HCC) Dyslipidemia, goal LDL below 70 Delirium due to multiple etiologies, acute, hyperactive Encephalopathy acute Ac isch multi vasc territories stroke ([facility]) Stroke-like symptoms Resolved Hospital Problems No resolved problems to display. ADMISSION HISTORY & PHYSICAL EXAM (focused): The patient is a 89 year old male with hx of admitted for spontaneous intracranial hemorrhage. Per lifeflight patient was at [facility] and experienced change in mental status with disorientation and physical agitation. The patient was imaged 09/05/24 0128 and imaging read at 1118 found to have 4.1 x 2.8 cm intraparenchymal hematoma within the left temporal lobe. He received 2g Keppra and IV magnesium for hypomagnesemia and was lifeflighted to [facility]. Examining the patient on arrival he is Alert but confused and only oriented to self. Follows commands, does not endorse any pain. Son arrived 1645 per report patient has PMH ND x5 w/ stents. Patient son reports last ND 08/2022 complicated by 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. Patient lives at [facility]. Called patient PCP awaiting records by fax EVENTS OF NOTE: 09/05/24 Admission to SICU as transfer from [facility] for [facility] (focused): 89 year old male known to have HTN, type 2 diabetes mellitus not on rat exterminator insulin with CKD stage 3b, DLD, ND s/p PCI X 5 with stents placed (last ND 08/2022 complicated by 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), BPH who initially presented to [facility] from assisted living facility for change in mentation and agitation on 09/05 found to have a L MCA infarct with hemorrhagic conversion. Patient is neurologically intact and has periods of lucency. Hospital course complicated by severe hospital/ICU delirium, new onset HFrEF, flash pulmonary edema, and urinary retention. Transferred to Neurology Service on 09/11. Transferred to Medicine on 09/12 due to increase in O2 requirement in setting of pulmonary edema and HFrEF. Since patient transferred to Medicine, weaned down high-flow nasal cannula to nasal cannula, started Lasix 40 IV twice daily. Cardiology involved. Noted to have new onset atrial fibrillation since afternoon of 09/12/2024, the patient is started on metoprolol per Cardiology and suggested to start digoxin if needed. Neurology recommended to start anticoagulation for Afib after 10/03/24 and at that time to stop aspirin. Cardiology aware of Neurology recommendations. PT/OT on board working on disposition Patient on managed on increasing levels of beta-blockers with Toprol-XL 100 mg daily, digoxin was added for AFib RVR and patient's rate was better controlled. Patient was also added on Lasix infusionfor heart failure with reduced ejection fraction found to have EF of 30%. Patient had good urine output and slowly was weaned off. Pimentel catheter was removed and was maintained on 40 mg p.o. Lasix. GDMT of started for acute hypoxic respiratory failure secondary to heart failure with reduced ejection fraction. Patient's symptoms stabilized. Patient also delirium, hospital-acquired complicated by stroke on this admission. Psychiatry saw the patient recommended stopping citalopram and starting the patient on trazodone scheduled three times daily and Depakote as needed for agitation. Seroquel was added as well to improve circadian rhythm. Patient's symptoms improved and is being discharged to nursing facility under stable conditions. Seen and examined on dc of dc. No complaints. Placentally confused. Operations & Procedures: none Complications: none significant Significant Lab and Imaging Results: As mentioned above MEDICATION UPDATES AT DISCHARGE START taking these medications INSTRUCTIONS Digoxin 125 mcg Tablet Commonly known as: Lanoxin Take 1 Tablet by mouth in the morning. Divalproex 125 MG Csdr capsule Commonly known as: Depakote Sprinkle Take 1 Capsule by mouth every 8 hours as needed for Agitation (agitation) for up to 10 days. Furosemide 40 MG Tablet Commonly known as: Lasix Take 1 Tablet by mouth in the morning. Polyethylene Glycol 3350 packet Commonly known as: Miralax Take 1 Packet by mouth daily as needed for Constipation. polyvinyl alcohol-povidone PF 1.4-0.6 % ophthalmic solution Commonly known as: Refresh Instill 1 Drop into both eyes every evening for 10 days. QUEtiapine 100 MG Tablet Commonly known as: SEROquel Take 1 Tablet by mouth every night at bedtime for 10 days. senna Tablet Commonly known as: Senokot Take 1 Tablet by mouth in the morning for 10 days. sodium bicarbonate 650 MG Tablet Take 1 Tablet by mouth in the morning and 1 Tablet before bedtime. Do all this for 10 days. Spironolactone 25 MG Tablet Commonly known as: Aldactone Take 1 Tablet by mouth in the morning for 10 days. tamsulosin 0.4 MG Capsule Commonly known as: Flomax Take 1 Capsule by mouth in the morning for 10 days. * traZODone 50 MG Tablet Commonly known as: Desyrel Take 0.5 Tablets by mouth every night at bedtime for 10 days. * traZODone 50 MG Tablet Commonly known as: Desyrel Take 0.25 Tablets by mouth in the morning and 0.25 Tablets at noon. Do all this for 10 days. * This list has 2 medication(s) that are the same as other medications prescribed for you. Read thedirections carefully, and ask your doctor or other care provider to review them with you. CHANGE how you take these medications INSTRUCTIONS metoprolol succinate XL 100 MG Tb24 Commonly known as: toPROL XL What changed: medication strength how much to take Take 1 Tablet by mouth in the morning. CONTINUE taking these medications INSTRUCTIONS AMBULATORY MISCELLANEOUS MEDICATION Dorzolamide HCI-Timolol 22.3-6.8: Administer 1 drop in both eyes twice daily aspirin enteric coated 81 MG Tbec Take 1 Tablet by mouth in the morning. atorvaSTATin 40 MG Tablet Commonly known as: Lipitor Take 1 Tablet by mouth in the morning. Cholecalciferol 50 MCG (1999) Tabs Take 1 Tablet by mouth in the morning. cycloSPORINE 0.05 % ophthalmic emulsion Commonly known as: Restasis Instill 1 Drop into both eyes in the morning and 1 Drop before bedtime. dorzolamide-timolol 2.23-0.68% ophthalmic solution Commonly known as: Cosopt Ocumeter Plus Instill 1 Drop into eye in the morning and 1 Drop before bedtime. Dulaglutide 4.5 MG/0.5ML Soaj Commonly known as: Trulicity Inject 4.5 mg under the skin every Thursday. Ferrous Sulfate 325 (65 FE) MG Tablet Commonly known as: Feosol Take 1 Tablet by mouth daily with breakfast. Finasteride 5 MG Tablet Commonly known as: Proscar Take 1 Tablet by mouth in the morning. Lisinopril 5 MG Tablet Commonly known as: Prinivil Take 1 Tablet by mouth in the morning. Melatonin 5 MG Tablet Take 1 Capsule by mouth at bedtime. metFORMIN ER 500 MG Tb24 Commonly known as: Glucophage XR Take 2 Tablets by mouth in the morning and 2 Tablets before bedtime. pantoprazole 40 MG Tbec Commonly known as: Protonix Take 1 Tablet by mouth in the morning. STOP taking these medications amLODIPine 2.5 MG Tablet Commonly known as: Norvasc citalopram 10 MG Tablet Commonly known as: CeleXA glipiZIDE XL 10 MG Tb24 SCHEDULED FOLLOW-UP: Future Appointments Appt Date/Time Provider Department 09/29/2024 9:30 AM Ksenia Arenas CRNP Cardiology, [facility] 11/29/2024 3:00 PM [facility] 01/04/2025 11:20 AM [facility] [address]; Sagar Ohara MD [place] [facility] [place] Arrive at: ARRIVE AT: Family [address] Outpatient Follow Up Basic Metabolic Panel Digoxin Level MRI - BRAIN WITH & WITHOUT CONTRAST Vascular Surgery Referral Op Other Information Indwelling Devices: LINES None Vital Signs (last recorded): Most Recent Systolic BP: 147 mmHg (09/21/24557) Most Recent Diastolic BP: 90 mmHg (09/21/24557) Pulse: 112 (09/21/24557) Resp: 19 (09/21/24557) Most Recent Temperature: 36.78 C (09/21/24557) Weight: 93.4 kg (206 lb) (09/21/24215) SpO2: 90 % (09/21/24557) O2 flow rate: 2 L/MIN (09/20/24620) Allergies: Patient has no known allergies. Activity: as tolerated Diet: cardiac diet and diabetic diet Code Status: Prior Condition on Discharge: fair Isolation status: None Cognition: Hyperactive delirium HOSPITAL CONSULTS ORDERED: ADULT PHYSICAL THERAPY CONSULT IP ADULT OCCUPATIONAL THERAPY CONSULT IP CARE MANAGEMENT CONSULT IP NEUROSURGERY CONSULT IP NEUROLOGY CONSULT IP ADULT SPEECH THERAPY CONSULT IP (ACUTE CARE REHAB) PHARMACY CONSULT IP ADULT SPEECH THERAPY CONSULT IP (ACUTE CARE REHAB) HEART FAILURE CONSULT IP PSYCHIATRY CONSULT IP REFERRING PHYSICIAN: REF: LEEROY DUARTE PRIMARY CARE PROVIDER: PCP: Jeremy Ruby MD [address] / [facility] [address] (office) [phone] (fax) Note: To contact a physician responsible for this patients hospital care, please call [employer] [phone]. I spent a total of 35 minutes coordinating, documenting, and providing care for this patient excluding time spent in the performance of separately billed services. documented in this encounter Discharge Instructions * Discharge Instr - AVS* Annette Carroll MD - 09/20/2024 11:53 AM EST Discharge Date: 09/21/24 Brief summary of inpatient care: Goran Hester was admitted to [facility] on 09/05/2024 with altered mentation. The primary diagnosis at discharge was Intraparenchymal hemorrhage of brain , acute encephalopathy,heart failure with reduced ejection fraction, AFib with RVR. Goran Hester is being discharged to half-way. The Hospital Medicine physician(s) at the time of discharge included: Annette Carroll MD To reach this Provider Thursday through Thursday (8:00 AM to 4:30 PM) for any questions or test results: Call [phone] For after-hours concerns: Call [phone] and have your provider paged, or the provider cleaning professional for the Department of Hospital Medicine paged. Inpatient test results pending: none Operations & Procedures: none Code Status: No Code Advance Directive Documentation: Advance Directive Does the Patient have an Advance Directive? No Diet: Carbohydrate-controlled diet, Heart healthy diet Activity: No restrictions and As tolerated Goran should continue the following therapies: Physical Therapy and Occupational Therapy Additional Precautions: none Isolation Status: None Mentation at Discharge: Future Studies Required: BMP in 1 week Respiratory Support at Discharge: oxygen at 2 L : setting - 24 hours PRIMARY CARE PROVIDER: PCP: Jeremy Ruby MD [address] [facility] / [facility] [phone] (office) [phone] (fax) Special Instructions: End date for medications including antibiotics and anticoagulants: Increase Toprol dose to 100 mg daily Start taking digoxin 125 mcg daily Start taking spironolactone 25 mg daily Continue taking lisinopril 5 mg daily Start taking Lasix 40 mg daily Continue taking aspirin and Lipitor Stopped taking amlodipine Stop taking Celexa Start taking Seroquel 100 mg q.h.s. Start taking trazodone 25 mg at night, 12.5 mg twice daily during the daytime Can use Depakote 125 mg sprinkles as needed for agitation Can use senna and MiraLax as needed for constipation Please have the patient return to the Emergency Department for any of the following: chest pain, chest pressure, chest tightness, difficulty breathing, or agitation worsening of delirium persist or worsen. The patient should not smoke or use tobacco products in any way! documented in this encounter Progress Notes * Catalino Valentino MD - 09/20/2024 3:34 PM EST Images from the original note were not included. [facility] A476/A INTERVAL HISTORY: No acute events overnight Patient was seen and examined bedside Hemodynamically stable. Afebrile Saturating 98% 2 L through nasal Denies any complaints No signs of agitation Objective Physical Exam Most Recent Vital Signs: BP: 144 mmHg/98 mmHg (09/20/24 1001) Pulse: 90 (09/20/24 1001) Resp: 18 (09/20/24 100) Temp: 36.22 C (09/20/24 100) Temp Summary: Temp Min: 36.1 C (97 F) Max: 37.2 C (99 F) SpO2: 98 % (09/20/24 100) O2 flow rate: 2 L/MIN (09/20/24 0621) Supplemental O2 Delivery: Room Air, None (09/20/241000) Physical Exam Constitutional: General: He is not in acute distress. HENT: Head: Normocephalic. Cardiovascular: Rate and Rhythm: Normal rate. Rhythm irregular. Abdominal: Tenderness: There is no abdominal tenderness. Musculoskeletal: Right lower leg: No edema. Left lower leg: No edema. Neurological: General: No focal deficit present. Mental Status: He is alert. Comments: Agitated Peripheral Line Left;Lower 20 Gauge (Active) Number of days: 3 STUDIES: Encounter Orders Labs and other studies reviewed with pertinent findings noted below: Assessment and Plan IMPRESSION : Principal Problem: Intraparenchymal hemorrhage of brain (HCC) Active Problems: Stroke-like symptoms Ac isch multi vasc territories stroke (HCC) HFrEF (heart failure with reduced ejection fraction) (HCC) Dyslipidemia, goal LDL below 70 Delirium due to multiple etiologies, acute, hyperactive Encephalopathy acute History of CAD (coronary artery disease) Pulmonary edema Heart failure, systolic, with acute decompensation (HCC) Atrial fibrillation with RVR (HCC) Atrial fibrillation (HCC) Acute respiratory failure with hypoxia (HCC) Depression Resolved Problems: * No resolved hospital problems. * DIFFERENTIAL AND PLAN: 89 year old male known to have HTN, type 2 diabetes mellitus not on mcfp insulin with CKD stage 3b, DLD, ND s/p PCI X 5 with stents placed (last ND 08/2022 complicated by 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), BPH who initially presented to [facility] from assisted living facility for change in mentation and agitation on 09/05 found to have a L MCA infarct with hemorrhagic conversion. Patient is neurologically intact and has periods of lucency. Hospital course complicated by severe hospital/ICU delirium, new onset HFrEF, flash pulmonary edema, and urinary retention. Transferred to Neurology Service on 09/11. Transferred to Medicine on 09/12 due to increase in O2 requirement in setting of pulmonary edema and HFrEF. Since patient transferred to Medicine, weaned down high-flow nasal cannula to nasal cannula, started Lasix 40 IV twice daily. Cardiology involved. Noted to have new onset atrial fibrillation since afternoon of 09/12/2024, the patient is started on metoprolol per Cardiology and suggested to start digoxin if needed. Neurology recommended to start anticoagulation for Afib after 10/03/24 and at that time to stop aspirin. Cardiology aware of Neurology recommendations. PT/OT on board working on disposition Acute encephalopathy, likely secondary to below: Same Intraparenchymal hemorrhage of brain Delirium due to general medical condition: Waxes and wanes Neurology on board, CTA head on 09/12 and recommend to start aspirin Continue Lipitor 40 mg daily Continue with Keppra 500 mg twice daily Continue neuro checks Citalopram discontinued given prolonged QTC Continue to maintain delirium precautions Given significant agitation trazodone 12.5 mg twice daily, 25 mg q.h.s. Can give Zyprexa/Haldol as needed for agitation Can give Depakote Sprinkles 125 mg q.8 hours as needed for agitation Medications for sleep adjusted to be given around 9:00 p.m. so that patient is able to sleep to have with sleep day cycle and circadian rhythm, Continue to maintain sleep protocol Seroquel added for delirium AFib with RVR Hypokalemia - resolved Hypomagnesemia - resolved Toprol dose continued at 100 mg daily Patient now on scheduled 125 mcg daily. Heart failure with reduced ejection fraction, new onset Echo showing EF of 30% Patient is started on GDMT Continue aspirin 81 mg daily Continue Lipitor Continue patient Toprol-XL 100 mg daily Continue lisinopril 10 mg daily Start the patient on spironolactone 25 mg daily Continue Lasix 40 mg p.o. daily PAD No palpable DP pulse in LLE but able to achieve doppler signal on, PT present -JENN 09/06 was 0.5 on LLE -Vascular surgery outpt eval as patient cannot be on any antiplt/coagulant for at least 4 weeks, holding ASA for at least a week BPH: cw finasteride and flomax Discussed with patient's daughter at bedside, answered all questions to best of my ability PHARMACOLOGIC VTE PROPHYLAXIS: hEParin CODE STATUS: No Code EXPECTED DISCHARGE DATE: 09/21/2024 I spent a total of 46 minutes coordinating, documenting, and providing care for this patient excluding time spent in the performance of separately billed services or time spent by another provider/QHP. * Rikki Montoya CRNP - 09/20/2024 11:56 AM EST SIGNOFF IMPRESSION AND RECOMMENDATIONS: Specialty Impression HFrEF Afib with RVR CAD HTN Recommended medication(s) at discharge Metoprolol XL 100mg Daily Spironolactone 25mg Daily ASA 81mg Daily Lisinopril 10mg Daily Lasix 40mg Daily Digoxin 125mcg Daily Recommended discharge testing (lab, imaging, etc.) None Other recommended care at discharge None Follow-up in [facility] - Follow with Cardiology Heart Failure team once D/C from hospital We will sign off at this time. Please call with any questions or should the patient's clinical course change. The oracle identity management consultant has placed the following orders for their recommendations: Medications Recommended Follow-up HESHAM Paulino * Catalino Valentino MD - 09/19/2024 4:11 PM EST Images from the original note were not included. [facility] A476/A INTERVAL HISTORY: Acute events overnight Patient was seen and examined bedside Hemodynamically stable. Afebrile Saturating 96% 2 L through nasal Denies any complaints Signs of agitation Objective Physical Exam Most Recent Vital Signs: BP: 136 mmHg/68 mmHg (09/19/24 1400) Pulse: 86 (09/19/24 1400) Resp: 18 (09/19/24 1400) Temp: 36.5 C (09/19/24 1400) Temp Summary: Temp Min: 35.8 C (96.4 F) Max: 37.3 C (99.1 F) SpO2: 96 % (09/19/24 1400) O2 flow rate: 2 L/MIN (09/19/24 1400) Supplemental O2 Delivery: Nasal Cannula (09/19/24 1400) Physical Exam Constitutional: General: He is not in acute distress. HENT: Head: Normocephalic. Cardiovascular: Rate and Rhythm: Normal rate. Rhythm irregular. Abdominal: Tenderness: There is no abdominal tenderness. Musculoskeletal: Right lower leg: No edema. Left lower leg: No edema. Neurological: General: No focal deficit present. Mental Status: He is alert. 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 * DIFFERENTIAL AND PLAN: 89 year old male known to have HTN, type 2 diabetes mellitus not on mcfp insulin with CKD stage 3b, DLD, ND s/p PCI X 5 with stents placed (last ND 08/2022 complicated by 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), BPH who initially presented to [facility] from assisted living facility for change in mentation and agitation on 09/05 found to have a L MCA infarct with hemorrhagic conversion. Patient is neurologically intact and has periods of lucency. Hospital course complicated by severe hospital/ICU delirium, new onset HFrEF, flash pulmonary edema, and urinary retention. Transferred to Neurology Service on 09/11. Transferred to Medicine on 09/12 due to increase in O2 requirement in setting of pulmonary edema and HFrEF. Since patient transferred to Medicine, weaned down high-flow nasal cannula to nasal cannula, started Lasix 40 IV twice daily. Cardiology involved. Noted to have new onset atrial fibrillation since afternoon of 09/12/2024, the patient is started on metoprolol per Cardiology and suggested to start digoxin if needed. Neurology recommended to start anticoagulation for Afib after 10/03/24 and at that time to stop aspirin. Cardiology aware of Neurology recommendations. PT/OT on board working on disposition Acute encephalopathy, likely secondary to below: Same Intraparenchymal hemorrhage of brain Delirium due to general medical condition: Waxes and wanes Neurology on board, CTA head on 09/12 and recommend to start aspirin Continue Lipitor 40 mg daily Continue with Keppra 500 mg twice daily Continue neuro checks Citalopram discontinued given prolonged QTC Continue to maintain delirium precautions Given significant agitation trazodone 12.5 mg twice daily, 25 mg q.h.s. Can give Zyprexa/Haldol as needed for agitation Can give Depakote Sprinkles 125 mg q.8 hours as needed for agitation Medications for sleep adjusted to be given around 9:00 p.m. so that patient is able to sleep to have with sleep day cycle and circadian rhythm, Continue to maintain sleep protocol Seroquel added for delirium AFib with RVR Hypokalemia - resolved Hypomagnesemia - resolved Toprol dose continued at 100 mg daily Patient now on scheduled 125 mcg daily. Heart failure with reduced ejection fraction, new onset Echo showing EF of 30% Patient is started on GDMT Continue aspirin 81 mg daily Continue Lipitor Continue patient Toprol-XL 100 mg daily Continue lisinopril 10 mg daily Start the patient on spironolactone 25 mg daily Continue Lasix 40 mg p.o. daily PAD No palpable DP pulse in LLE but able to achieve doppler signal on, PT present -JENN 09/06 was 0.5 on LLE -Vascular surgery outpt eval as patient cannot be on any antiplt/coagulant for at least 4 weeks, holding ASA for at least a week BPH: cw finasteride and flomax Discussed with patient's daughter at bedside, answered all questions to best of my ability PHARMACOLOGIC VTE PROPHYLAXIS: hEParin CODE STATUS: No Code EXPECTED DISCHARGE DATE: 09/20/2024 I spent a total of 43 minutes coordinating, documenting, and providing care for this patient excluding time spent in the performance of separately billed services or time spent by another provider/QHP. * Susan Lowe CRNP - 09/19/2024 9:14 AM EST PROGRESS NOTE - Cardiology [address] [id number] Name: Goran Hester Location: [facility] A4/A Date: 09/19/2024 Time: 9:14 AM SUBJECTIVE: Met lying in bed with daughter at bedside. Resting comfortably. No acute distress. Daughter endorses a multitude of visits by healthcare team today. Patient is looking forward to resting, and likely not engaging with me at present due to this desire. Net IO Since Admission: -5,338.8 mL [09/19/24915] Intake/Output Summary (Last 24 hours) at 09/19/2024 0916 Last data filed at 09/19/2024 0552 Gross per 24 hour Intake -- Output 800 ml Net -800 ml Weights: 09/05/2024 (Admission Weight) 210 lbs 7 oz 09/20/2024: 206 lbs 8 oz Inpatient Diuretic Regimen: 09/16/2024: Lasix 40 mg PO Daily 09/17/2024:Lasix 40 mg PO Daily 09/18/2024:Lasix 40 mg PO Daily 09/19/2024: Lasix 40 mg PO Daily SAND BOBBER Diuretic Regimen: None SAND BOBBER Cardiac Medications: Amlodipine 2.5 mg PO Daily ASA 81 mg PO Daily Atorvastatin 40 mg PO Daily Lisinopril 5 mg PO Daily Metoprolol Succinate 75 mg PO Daily OBJECTIVE: Most Recent Vital Signs: BP: 150 mmHg/88 mmHg (09/19/24902) Pulse: 91 (09/19/24902) Resp: 20 (09/19/24599) Temp: 37.28 C (09/19/24599) Temp Summary: Temp Min: 35.8 C (96.4 F) Max: 37.3 C (99.1 F) SpO2: 95 % (09/19/24599) O2 flow rate: 2 L/MIN (09/19/24599) Supplemental O2 Delivery: Nasal Cannula (02/24/25 0600) Vital Signs Last 24 Hours: Systolic BP: Most Recent Systolic BP Av.5 mmHg Min: 135 mmHg Max: 150 mmHg Temperature: Most Recent Temperature Av.8 C Min: 35.78 C Max: 37.28 C Pulse: Pulse Av.3 Min: 83 Max: 118 Respirations: Resp Av.5 Min: 18 Max: 20 SpO2: SpO2 Av % Min: 91 % Max: 96 % Physical Exam: Constitutional: no acute distress HEENT: normal: normocephalic, atraumatic; no masses, tenderness, or adenopathy Eyes: sclera and conjunctiva normal Neck: supple, normal range of motion, JVP normal CV: normal rate, no murmur, no gallop, no rub, intact distal pulses, irregularly irregular Chest: normal respiratory effort, lungs clear to auscultation and percussion Extremities: no clubbing, cyanosis, or edema, otherwise grossly normal, warm, and dry Skin: warm, dry: Neuro: Confused Psych: confused LABS: Labs reviewed as indicated below: Latest Reference Range & Units 09/19/24 06:26 SODIUM 135 - 146 mmol/L 142 POTASSIUM 3.5 - 5.1 mmol/L 4.1 CHLORIDE 98 - 107 mmol/L 104 CO2 22 - 32 mmol/L 27 BUN 6 - 20 mg/dL 7 CREATININE 0.6 - 1.2 mg/dL 1.6 (H) EGFR >=60 mL/min 41 (L) ANION GAP 7 - 15 mmol/L 11 GLUCOSE 70 - 120 mg/dL 123 (H) CALCIUM 8.4 - 10.2 mg/dL 8.5 Magnesium 1.5 - 2.6 mg/dL 1.8 Phosphorus 2.5 - 4.8 mg/dL 3.9 (H): Data is abnormally high (L): Data is abnormally low IMAGING: Echo report from [facility], October 2023: -EF of 30-35% -global hypokinesis mildly concentric left ventricular hypertrophy -no valvular abnormalities. Echo obtained at [facility] 09/06/24 : -LV ejection fraction is 30-34% (moderately reduced). There is diffuse hypokinesis to akinesis. There is no left ventricular mural thrombus. No mural thrombus was identified but the apical wall motion defect could serve as a nidus for thromboembolism. The aortic root and proximal ascending aorta are mildly enlarge IMPRESSION and PLAN: New Onset atrial fibrillation with RVR Acute systolic heart failure Acute hypoxic respiratory failure CAD, ND, s/p several PCIs HTN Hypokalemia Hypomagnesemia Recommendations: -Improved heart rate following digoxin bolus dosing. Some agitation yesterday with associated mild tachycardia. Haldol, Zyprexa, and Depakote given yesterday without improvement. Now on maintenance digoxin dosing at 125 mg daily. Most recent dig level within acceptable range at 0.9. Heart rate today within 70-80 bpm range. -Continue Metoprolol Succinate 100 mg PO Daily. -Continue Lasix 40 mg PO Daily. -Continue Lisinopril 10 mg PO Daily. -Continue spironolactone 25 mg daily for neuro hormonal regulation, potassium-sparing -Continue aspirin 81 mg daily, start Eliquis as able per Neurology recommendations. -Continue to monitor renal function and electrolytes. Maintain K > 4, Mg > 2 -Recommend daily standing weights, strict I/Os, adhering to a 2L fluid restrict and 2g sodium restricted diet -Continue to wean oxygen, as clinical status allows. -Rest per primary team HESHAM Looney Department of Cardiology [address] [place] [address] * Catalino Valentino MD - 09/18/2024 10:55 AM EST Images from the original note were not included. [facility] A476/A INTERVAL HISTORY: Patient was agitated overnight and needed multiple medications including Haldol x1, the Zyprexa x1,Depakote x1 Patient was seen and examined with patient's son at bedside That pressure stable, tachycardic with a heart rate 108 Saturating 91% on 2 L through nasal cannula Stable in bed Denies any complaints Objective Physical Exam Most Recent Vital Signs: BP: 135 mmHg/87 mmHg (09/18/24 0920) Pulse: 108 (09/18/24 0920) Resp: 18 (09/18/24 0722) Temp: 37.61 C (09/18/24721) Temp Summary: Temp Min: 36.7 C (98 F) Max: 37.6 C (99.7 F) Invasive Temp Min: 37 C (98.6 F) Max: 37 C (98.6 F) SpO2: 91 % (09/18/24721) O2 flow rate: 2 L/MIN (09/18/24721) Supplemental O2 Delivery: Nasal Cannula (09/18/24723) Physical Exam Constitutional: General: He is not in acute distress. HENT: Head: Normocephalic. Cardiovascular: Rate and Rhythm: Normal rate. Rhythm irregular. Abdominal: Tenderness: There is no abdominal tenderness. Musculoskeletal: Right lower leg: No edema. Left lower leg: No edema. Neurological: General: No focal deficit present. Mental Status: He is alert. 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 * DIFFERENTIAL AND PLAN: 89 year old male known to have HTN, type 2 diabetes mellitus not on mcfp insulin with CKD stage 3b, DLD, ND s/p PCI X 5 with stents placed (last ND 08/2022 complicated by 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), BPH who initially presented to [facility] from assisted living facility for change in mentation and agitation on 09/05 found to have a L MCA infarct with hemorrhagic conversion. Patient is neurologically intact and has periods of lucency. Hospital course complicated by severe hospital/ICU delirium, new onset HFrEF, flash pulmonary edema, and urinary retention. Transferred to Neurology Service on 09/11. Transferred to Medicine on 09/12 due to increase in O2 requirement in setting of pulmonary edema and HFrEF. Since patient transferred to Medicine, weaned down high-flow nasal cannula to nasal cannula, started Lasix 40 IV twice daily. Cardiology involved. Noted to have new onset atrial fibrillation since afternoon of 09/12/2024, the patient is started on metoprolol per Cardiology and suggested to start digoxin if needed. Neurology recommended to start anticoagulation for Afib after 10/03/24 and at that time to stop aspirin. Cardiology aware of Neurology recommendations. PT/OT on board working on disposition Acute encephalopathy, likely secondary to below: Same Intraparenchymal hemorrhage of brain Delirium due to general medical condition: Bull and wanirais Neurology on board, CTA head on 09/12 and recommend to start aspirin Continue Lipitor 40 mg daily Continue with Keppra 500 mg twice daily Continue neuro checks Citalopram discontinued given prolonged QTC Continue to maintain delirium precautions Given significant agitation trazodone 12.5 mg twice daily, 25 mg q.h.s. Can give Zyprexa/Haldol as needed for agitation Can give Depakote Sprinkles 125 mg q.8 hours as needed for agitation Medications for sleep adjusted to be given around 9:00 p.m. so that patient is able to sleep to have with sleep day cycle and circadian rhythm, Continue to maintain sleep protocol Seroquel added for delirium AFib with RVR Hypokalemia - 3.7 - replaced Hypomagnesemia - resolved Toprol dose continued at 100 mg daily Patient now on scheduled 125 mcg daily. Heart failure with reduced ejection fraction, new onset Echo showing EF of 30% Patient is started on GDMT Continue aspirin 81 mg daily Continue Lipitor Continue patient Toprol-XL 100 mg daily Continue lisinopril 10 mg daily Start the patient on spironolactone 25 mg daily Continue Lasix 40 mg p.o. daily PAD No palpable DP pulse in LLE but able to achieve doppler signal on, PT present -JENN 09/06 was 0.5 on LLE -Vascular surgery outpt eval as patient cannot be on any antiplt/coagulant for at least 4 weeks, holding ASA for at least a week BPH: cw finasteride and flomax Discussed with patient's son at bedside, answered all questions to best of my ability PHARMACOLOGIC VTE PROPHYLAXIS: hEParin CODE STATUS: No Code EXPECTED DISCHARGE DATE: 09/19/2024 I spent a total of 41 minutes coordinating, documenting, and providing care for this patient excluding time spent in the performance of separately billed services or time spent by another provider/QHP. * Catalino Valentino MD - 09/17/2024 2:31 PM EST Images from the original note were not included. [facility] A476/A INTERVAL HISTORY: Patient was agitated overnight and needed multiple medications Was seen and examined with son at bedside Patient sleeping, somnolent likely secondary to all the medications he received overnight Otherwise hemodynamically stable. Saturating 95% on 2 L through nasal cannula Objective Physical Exam Most Recent Vital Signs: BP: 132 mmHg/95 mmHg (09/17/241425) Pulse: 97 (09/17/24 142) Resp: 19 (09/17/241425) Temp: 37.28 C (09/17/241425) Temp Summary: Temp Min: 37.2 C (99 F) Max: 38.3 C (100.9 F) SpO2: 95 % (09/17/241425) O2 flow rate: 2 L/MIN (09/17/241425) Supplemental O2 Delivery: Nasal Cannula (09/17/241425) Physical Exam Constitutional: General: He is not in acute distress. HENT: Head: Normocephalic. Cardiovascular: Rate and Rhythm: Normal rate. Rhythm irregular. Abdominal: Tenderness: There is no abdominal tenderness. Musculoskeletal: Right lower leg: No edema. Left lower leg: No edema. Neurological: General: No focal deficit present. Mental Status: He is alert. 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 * DIFFERENTIAL AND PLAN: 89 year old male known to have HTN, type 2 diabetes mellitus not on mcfp insulin with CKD stage 3b, DLD, ND s/p PCI X 5 with stents placed (last ND 08/2022 complicated by 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), BPH who initially presented to [facility] from assisted living facility for change in mentation and agitation on 09/05 found to have a L MCA infarct with hemorrhagic conversion. Patient is neurologically intact and has periods of lucency. Hospital course complicated by severe hospital/ICU delirium, new onset HFrEF, flash pulmonary edema, and urinary retention. Transferred to Neurology Service on 09/11. Transferred to Medicine on 09/12 due to increase in O2 requirement in setting of pulmonary edema and HFrEF. Since patient transferred to Medicine, weaned down high-flow nasal cannula to nasal cannula, started Lasix 40 IV twice daily. Cardiology involved. Noted to have new onset atrial fibrillation since afternoon of 09/12/2024, the patient is started on metoprolol per Cardiology and suggested to start digoxin if needed. Neurology recommended to start anticoagulation for Afib after 10/03/24 and at that time to stop aspirin. Cardiology aware of Neurology recommendations. PT/OT on board working on disposition Acute encephalopathy, likely secondary to below: Same Intraparenchymal hemorrhage of brain Delirium due to general medical condition: Waxes and wanes Neurology on board, CTA head on 09/12 and recommend to start aspirin Continue Lipitor 40 mg daily Continue with Keppra 500 mg twice daily Continue neuro checks Citalopram discontinued given prolonged QTC Continue to maintain delirium precautions Given significant agitation trazodone 12.5 mg scheduled three times daily. Can give Zyprexa/Haldol as needed for agitation Can give Depakote Sprinkles 125 mg q.8 hours as needed for agitation Medications for sleep adjusted to be given around 9:00 p.m. so that patient is able to sleep to have with sleep day cycle and circadian rhythm, Continue to maintain sleep protocol AFib with RVR Hypokalemia - 3.4 - replaced Hypomagnesemia - 1.6 - replaced Toprol dose increased to 100 mg daily Patient now on scheduled 125 mcg daily. Check digoxin level tomorrow in the morning Heart failure with reduced ejection fraction, new onset Echo showing EF of 30% Patient is started on GDMT Continue aspirin 81 mg daily Continue Lipitor Continue patient Toprol-XL 100 mg daily Continue lisinopril 10 mg daily Start the patient on spironolactone 25 mg daily Continue Lasix 40 mg p.o. daily PAD No palpable DP pulse in LLE but able to achieve doppler signal on, PT present -JENN 09/06 was 0.5 on LLE -Vascular surgery outpt eval as patient cannot be on any antiplt/coagulant for at least 4 weeks, holding ASA for at least a week BPH: cw finasteride and flomax Discussed with patient's son at bedside, answered all questions to best of my ability PHARMACOLOGIC VTE PROPHYLAXIS: hEParin CODE STATUS: No Code EXPECTED DISCHARGE DATE: 09/19/2024 I spent a total of 51 minutes coordinating, documenting, and providing care for this patient excluding time spent in the performance of separately billed services or time spent by another provider/QHP. * Catalino Valentino MD - 09/16/2024 1:23 PM EST Images from the original note were not included. [facility] A476/A INTERVAL HISTORY: No acute events overnight Patient was seen and examined with son at bedside Remains hemodynamically stable, stable Saturating well on 6 L through nasal cannula Patient is more alert and pleasant today Denies any complaints and states he feels well Objective Physical Exam Most Recent Vital Signs: BP: 164 mmHg/81 mmHg (09/16/24 1000) Pulse: 86 (09/16/24 1000) Resp: 18 (09/16/24 1000) Temp: 37.5 C (09/16/24 1000) Temp Summary: Temp Min: 36.8 C (98.2 F) Max: 37.8 C (100 F) SpO2: 96 % (09/16/24 1000) O2 flow rate: 6 L/MIN (09/16/24 1000) Supplemental O2 Delivery: Nasal Cannula (09/16/24 1000) Physical Exam Constitutional: General: He is not in acute distress. HENT: Head: Normocephalic. Cardiovascular: Rate and Rhythm: Tachycardia present. Rhythm irregular. Abdominal: Tenderness: There is no abdominal tenderness. Musculoskeletal: Right lower leg: No edema. Left lower leg: No edema. Neurological: General: No focal deficit present. Mental Status: He is alert. 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 * DIFFERENTIAL AND PLAN: 89 year old male known to have HTN, type 2 diabetes mellitus not on mcfp insulin with CKD stage 3b, DLD, ND s/p PCI X 5 with stents placed (last ND 08/2022 complicated by 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), BPH who initially presented to [facility] from assisted living facility for change in mentation and agitation on 09/05 found to have a L MCA infarct with hemorrhagic conversion. Patient is neurologically intact and has periods of lucency. Hospital course complicated by severe hospital/ICU delirium, new onset HFrEF, flash pulmonary edema, and urinary retention. Transferred to Neurology Service on 09/11. Transferred to Medicine on 09/12 due to increase in O2 requirement in setting of pulmonary edema and HFrEF. Since patient transferred to Medicine, weaned down high-flow nasal cannula to nasal cannula, started Lasix 40 IV twice daily. Cardiology involved. Noted to have new onset atrial fibrillation since afternoon of 09/12/2024, the patient is started on metoprolol per Cardiology and suggested to start digoxin if needed. Neurology recommended to start anticoagulation for Afib after 10/03/24 and at that time to stop aspirin. Cardiology aware of Neurology recommendations. PT/OT on board working on disposition Acute encephalopathy, likely secondary to below: Improving Intraparenchymal hemorrhage of brain Delirium due to general medical condition: Improving Neurology on board, CTA head on 09/12 and recommend to start aspirin Continue Lipitor 40 mg daily Continue with Keppra 500 mg twice daily Continue neuro checks Citalopram discontinued given prolonged QTC Continue to maintain delirium precautions Given significant agitation trazodone 12.5 mg scheduled three times daily. Can give Zyprexa/Haldol as needed for agitation Can give Depakote Sprinkles 125 mg q.8 hours as needed for agitation Continue to maintain sleep protocol Pimentel catheter removed yesterday to reduce agitation AFib with RVR Hypokalemia - resolved Hypomagnesemia - resolved Toprol dose increased to 100 mg daily Received digoxin 500 mcg followed by 250 mcg x 2. Patient now on scheduled 125 mcg daily. Check digoxin level tomorrow in the morning Heart failure with reduced ejection fraction, new onset Echo showing EF of 30% Patient is started on GDMT Continue aspirin 81 mg daily Continue Lipitor Continue patient Toprol-XL 100 mg daily Continue lisinopril 10 mg daily Start the patient on spironolactone 25 mg daily Continue Lasix 40 mg p.o. daily PAD No palpable DP pulse in LLE but able to achieve doppler signal on, PT present -JENN 09/06 was 0.5 on LLE -Vascular surgery outpt eval as patient cannot be on any antiplt/coagulant for at least 4 weeks, holding ASA for at least a week BPH: cw finasteride and flomax Discussed with patient's son at bedside, answered all questions to best of my ability PHARMACOLOGIC VTE PROPHYLAXIS: hEParin CODE STATUS: No Code EXPECTED DISCHARGE DATE: 09/17/2024 I spent a total of 53 minutes coordinating, documenting, and providing care for this patient excluding time spent in the performance of separately billed services or time spent by another provider/QHP. * Susan Lowe CRNP - 09/16/2024 9:55 AM EST PROGRESS NOTE - Cardiology [facility]-[address] [address] Name: Goran Hester Location: [facility] A476/A Date: 09/16/2024 Time: 9:55 AM SUBJECTIVE: Met in bed. Patient without cardiac complaint. Remains on supplemental oxygen. Patient endorses that he is not on oxygen at baseline. Endorses that he is feeling well and is anxious to return home. Needs frequent redirecting during our time together. Net IO Since Admission: -2,908.69 mL [09/16/24 0956] Intake/Output Summary (Last 24 hours) at 09/16/2024 1313 Last data filed at 09/15/2024 2100 Gross per 24 hour Intake 269.76 ml Output 600 ml Net -330.24 ml Inpatient Diuretic Regimen: 09/16/2024: Lasix 40 mg PO Daily SAND BOBBER Diuretic Regimen: None SAND BOBBER Cardiac Medications: Amlodipine 2.5 mg PO Daily ASA 81 mg PO Daily Atorvastatin 40 mg PO Daily Lisinopril 5 mg PO Daily Metoprolol Succinate 75 mg PO Daily OBJECTIVE: Most Recent Vital Signs: BP: 177 mmHg/85 mmHg (09/16/24833) Pulse: 84 (09/16/24833) Resp: 19 (09/16/24647) Temp: 37.78 C (09/16/24647) Temp Summary: Temp Min: 36.8 C (98.2 F) Max: 37.8 C (100 F) SpO2: 95 % (09/16/24647) O2 flow rate: 6 L/MIN (09/16/24647) Supplemental O2 Delivery: Nasal Cannula (09/16/24647) Vital Signs Last 24 Hours: Systolic BP: Most Recent Systolic BP Av.9 mmHg Min: 136 mmHg Max: 177 mmHg Temperature: Most Recent Temperature Av.2 C Min: 36.78 C Max: 37.78 C Pulse: Pulse Av.2 Min: 84 Max: 142 Respirations: Resp Av.2 Min: 19 Max: 22 SpO2: SpO2 Av.7 % Min: 94 % Max: 99 % Physical Exam: Constitutional: no acute distress HEENT: normal: normocephalic, atraumatic; no masses, tenderness, or adenopathy Eyes: sclera and conjunctiva normal Neck: supple, normal range of motion, JVP normal CV: normal rate, no murmur, no gallop, no rub, intact distal pulses, irregularly irregular Chest: normal respiratory effort, lungs clear to auscultation and percussion Extremities: no clubbing, cyanosis, or edema, otherwise grossly normal, warm, and dry Skin: warm, dry: Neuro: Confused Psych: confused LABS: Labs reviewed as indicated below: Latest Reference Range & Units 09/16/24 08:01 SODIUM 135 - 146 mmol/L 141 POTASSIUM 3.5 - 5.1 mmol/L 3.8 CHLORIDE 98 - 107 mmol/L 103 CO2 22 - 32 mmol/L 25 BUN 6 - 20 mg/dL 15 CREATININE 0.6 - 1.2 mg/dL 1.6 (H) EGFR >=60 mL/min 41 (L) ANION GAP 7 - 15 mmol/L 13 GLUCOSE 70 - 120 mg/dL 132 (H) CALCIUM 8.4 - 10.2 mg/dL 8.5 Magnesium 1.5 - 2.6 mg/dL 2.0 Phosphorus 2.5 - 4.8 mg/dL 3.4 (H): Data is abnormally high (L): Data is abnormally low IMAGING: Echo report from [facility], October 2023: -EF of 30-35% -global hypokinesis mildly concentric left ventricular hypertrophy -no valvular abnormalities. Echo obtained at [facility] 09/06/24 : -LV ejection fraction is 30-34% (moderately reduced). There is diffuse hypokinesis to akinesis. There is no left ventricular mural thrombus. No mural thrombus was identified but the apical wall motion defect could serve as a nidus for thromboembolism. The aortic root and proximal ascending aorta are mildly enlarge IMPRESSION and PLAN: New Onset atrial fibrillation with RVR Acute systolic heart failure Acute hypoxic respiratory failure CAD, ND, s/p several PCIs HTN Hypokalemia Hypomagnesemia Recommendations: -Improved heart rate following digoxin bolus dosing. Now consistently in 80's. Recommend daily digoxin dosing of 125 mcg, with serum digoxin level not to exceed 2 ng/ml, ideally not greater than 1 ng/ml, in effort to reduce risk of digoxin toxicity. eGFR reviewed: 41. Estimated creatine clearance of 45. original Cockcroft-Gault. Renal function reviewed and stable. -Continue Metoprolol Succinate 100 mg PO Daily. -Continue Lasix 40 mg PO Daily. -Continue Lisinopril 10 mg PO Daily. -Continue spironolactone 25 mg daily for neuro hormonal regulation, potassium-sparing -Continue aspirin 81 mg daily, start Eliquis as able per Neurology recommendations. -Continue to monitor renal function and electrolytes. Maintain K > 4, Mg > 2 -Recommend daily standing weights, strict I/Os, adhering to a 2L fluid restrict and 2g sodium restricted diet -Continue to wean oxygen, as clinical status allows. -Rest per primary team HESHAM Looney Department of Cardiology [address] [place] [address] * Emelia Garcia, HESHAM Gan - 09/15/2024 12:34 PM EST PROGRESS NOTE - Heart Failure [address] [address] Name: Goran Hester Location: [facility] A476/A Date: 09/15/2024 Time: 12:34 PM SUBJECTIVE: Remains in Afib rates 90s to low 100s when asleep up into 130s when awake. Sleeping. OBJECTIVE: Most Recent Vital Signs: BP: 136 mmHg/79 mmHg (09/15/24 1026) Pulse: 118 (09/15/24 1026) Resp: 20 (09/15/24 1026) Temp: 37.11 C (09/15/24 1026) Temp Summary: Temp Min: 36.8 C (98.2 F) Max: 37.7 C (99.9 F) SpO2: 95 % (09/15/24 1026) O2 flow rate: 6 L/MIN (09/15/24 1026) Supplemental O2 Delivery: Nasal Cannula (09/15/24 1026) Intake/Output Summary (Last 24 hours) at 09/15/2024 1234 Last data filed at 09/15/2024 1214 Gross per 24 hour Intake -- Output 10 ml Net -10 ml Net IO Since Admission: -2,068.45 mL [09/14/24 0909] Weight: Patient Vitals for the past 72 hrs: Weight 09/15/24 0106 93.8 kg (206 lb 12.8 oz) 09/14/24 0612 96.2 kg (212 lb 1.6 oz) 09/13/24 0556 97.9 kg (215 lb 12.8 oz) Vital Signs Last 24 Hours: Systolic BP: Most Recent Systolic BP Av mmHg Min: 125 mmHg Max: 173 mmHg Temperature: Temp Av.2 C (99 F) Min: 36.8 C (98.2 F) Max: 37.7 C (99.9 F) Pulse: Pulse Av.4 Min: 91 Max: 148 Respirations: Resp Av.8 Min: 20 Max: 32 SpO2: SpO2 Av.7 % Min: 90 % Max: 96 % Limited exam due to agitation. General: resting comfortably. Neuro: delirious Neck: No JVD Cardiac: Tachycardic, irregularly irregular Extremities: No edema Digoxin (Lanoxin) 0.25 MG/ML inj 500 mcg AND Digoxin (Lanoxin) 0.25 MG/ML inj 250 mcg [START ON 09/16/2024] metoprolol succinate XL (toPROL XL) tab 100 mg Spironolactone (Aldactone) tab 25 mg Divalproex (Depakote Sprinkle) delayed release capsule 125 mg Haloperidol Lactate (Haldol) 5 MG/ML inj 1 mg OLANZapine (zyPREXA IM) inj 5 mg traZODone (Desyrel) tab 12.5 mg Iron Sucrose (Venofer) 300 mg in NSS 250 mL ivpb Metoprolol Tartrate (Lopressor) inj 5 mg sodium bicarbonate tab 650 mg aspirin chew tab 81 mg Furosemide (Lasix) inj 40 mg Acetaminophen (Tylenol) tab 650 mg insulin aspart (NovoLOG) inj Lisinopril (Prinivil) tab 10 mg tamsulosin (Flomax) cap 0.4 mg Finasteride (Proscar) tab 5 mg melatonin tab 6 mg Docusate Sodium (Colace) oral liquid 100 mg Polyethylene Glycol 3350 (Miralax) oral powder 17 g senna (Senokot) 1 Tablet dextrose 50% inj 25 mL dextrose 50% inj 50 mL glucagon (Glucagen) inj 1 mg Glucose (Glutose 15) 40 % gel 15 g of glucose Glucose (Glutose 15) 40 % gel 30 g of glucose glucose chew tab 16 g [CANCELED] Ventilation Method: Acute Non-Invasive --- PEEP/EPAP/CPAP: 5 --- Changes Per Adult Protocol: Yes AND oxygen GAS albuterol-ipratropium (Duoneb) inhalation solution 3 mL Benzonatate (Tessalon Perles) cap 100 mg dorzolamide (Trusopt Ocumeter Plus) 2 % ophthalmic solution 1 Drop labetalol (Trandate) inj 10 mg cycloSPORINE (Restasis) 0.05 % ophthalmic emulsion 1 Drop hEParin inj 5,000 Units polyvinyl alcohol-povidone PF (Refresh) ophthalmic solution 1 Drop sodium chloride 0.9 % flush peripheral lucy 3 mL Current Outpatient Medications Medication Instructions AMBULATORY MISCELLANEOUS MEDICATION Dorzolamide HCI-Timolol 22.3-6.8: Administer 1 drop in both eyes twice daily amLODIPine (NORVASC) 2.5 mg, Oral, Daily(AM) aspirin enteric coated 81 mg, Oral, Daily(AM) atorvaSTATin (LIPITOR) 40 mg, Oral, Daily(AM) Cholecalciferol 50 MCG (1999 UT) Oral Tablet 1 Tablet, Oral, Daily(AM) citalopram (CELEXA) 10 mg, Oral, Daily(AM) cycloSPORINE 0.05 % Ophthalmic Emulsion (Restasis) 1 Drop, Both eyes, BID (.AM/PM) Dorzolamide HCl-Timolol Mal 2-0.5 % Ophthalmic Solution (Cosopt Ocumeter Plus) 1 Drop, Ophthalmic, BID (.AM/PM) Dulaglutide (TRULICITY) 4.5 mg, Subcutaneous, THURSDAY Ferrous Sulfate (FEOSOL) 325 mg, Oral, BREAKFAST Finasteride (PROSCAR) 5 mg, Oral, Daily(AM) glipiZIDE XL (GLIPIZIDE XL) 10 mg, Oral, Daily(AM) Lisinopril (PRINIVIL) 5 mg, Oral, Daily(AM) Melatonin 5 mg, Oral, HS metFORMIN ER (GLUCOPHAGE XR) 1,000 mg, Oral, BID (.AM/PM) metoprolol succinate XL (TOPROL XL) 75 mg, Oral, Daily(AM) pantoprazole (PROTONIX) 40 mg, Oral, Daily(AM) LABS: Labs reviewed as indicated below: Latest Reference Range & Units 09/15/24 06:45 09/15/24 10:33 SODIUM 135 - 146 mmol/L 141 POTASSIUM 3.5 - 5.1 mmol/L SEE REPORT 4.7 CHLORIDE 98 - 107 mmol/L 106 CO2 22 - 32 mmol/L 22 BUN 6 - 20 mg/dL 15 CREATININE 0.6 - 1.2 mg/dL 1.5 (H) EGFR >=60 mL/min 43 (L) ANION GAP 7 - 15 mmol/L 13 GLUCOSE 70 - 120 mg/dL 110 CALCIUM 8.4 - 10.2 mg/dL 9.0 Magnesium 1.5 - 2.6 mg/dL 2.4 Phosphorus 2.5 - 4.8 mg/dL 3.8 (H): Data is abnormally high (L): Data is abnormally low IMAGING: Echo report from [facility], October 2023: -EF of 30-35% -global hypokinesis mildly concentric left ventricular hypertrophy -no valvular abnormalities. Echo obtained at [facility] 09/06/24 : -LV ejection fraction is 30-34% (moderately reduced). There is diffuse hypokinesis to akinesis. There is no left ventricular mural thrombus. No mural thrombus was identified but the apical wall motion defect could serve as a nidus for thromboembolism. The aortic root and proximal ascending aorta are mildly enlarge IMPRESSION and PLAN: (Discussed with Dr. Kang) New Onset atrial fibrillation with RVR Acute systolic heart failure Acute hypoxic respiratory failure CAD, ND, s/p several PCIs HTN Hypokalemia Hypomagnesemia - remains in AFib with RVR, rates 90s-110s when asleep, up to 130s when awake. - digoxin load. Give 500 mcg IV x1 then 250 mcg q.6 hours x2. - continue metoprolol succinate, increased to 100mg daily staring tomorrow. - Change to PO lasix, 40 mg daily - continue lisinopril 10 mg daily - cotinue spironolactone 25 mg daily for neuro hormonal regulation, potassium-sparing - continue aspirin 81 mg daily, start Eliquis as able per Neurology recommendations. - Continue to monitor renal function and electrolytes. Maintain K > 4, Mg > 2 - Recommend daily standing weights, strict I/Os, adhering to a 2L fluid restrict and 2g sodium restricted diet - rest per primary team I spent a total of 35 minutes coordinating, documenting, and providing care for this patient excluding time spent in the performance of separately billed services or time spent by another provider/QHP. HESHAM Aggarwal Jr Department of Cardiology [facility] [place] [address] * Catalino Valentino MD - 09/15/2024 11:04 AM EST Images from the original note were not included. [facility] A476/A INTERVAL HISTORY: Patient was agitated yesterday during the day but remain count during the night Patient was seen and examined with his son at bedside Hemodynamically stable, heart rate remained stable in the 90s and telemetry overnight, tachycardic in the 100s this morning Potassium was 3.7 yesterday in the evening, this morning sample was hemolyzed, repeat 4.7 Patient more drowsy today Woke up for breakfast and slept again Objective Physical Exam Most Recent Vital Signs: BP: 136 mmHg/79 mmHg (09/15/24 1026) Pulse: 118 (09/15/24 1026) Resp: 20 (09/15/24 1026) Temp: 37.11 C (09/15/24 1026) Temp Summary: Temp Min: 36.8 C (98.2 F) Max: 37.7 C (99.9 F) SpO2: 95 % (09/15/24 1026) O2 flow rate: 6 L/MIN (09/15/24 1026) Supplemental O2 Delivery: Nasal Cannula (09/15/24 1026) Physical Exam Constitutional: General: He is not in acute distress. HENT: Head: Normocephalic. Cardiovascular: Rate and Rhythm: Tachycardia present. Rhythm irregular. Abdominal: Tenderness: There is no abdominal tenderness. Musculoskeletal: Right lower leg: No edema. Left lower leg: No edema. Neurological: General: No focal deficit present. Mental Status: He is alert. 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 * DIFFERENTIAL AND PLAN: 89 year old male known to have HTN, type 2 diabetes mellitus not on mcfp insulin with CKD stage 3b, DLD, ND s/p PCI X 5 with stents placed (last ND 08/2022 complicated by 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), BPH who initially presented to [facility] from assisted living facility for change in mentation and agitation on 09/05 found to have a L MCA infarct with hemorrhagic conversion. Patient is neurologically intact and has periods of lucency. Hospital course complicated by severe hospital/ICU delirium, new onset HFrEF, flash pulmonary edema, and urinary retention. Transferred to Neurology Service on 09/11. Transferred to Medicine on 09/12 due to increase in O2 requirement in setting of pulmonary edema and HFrEF. Since patient transferred to Medicine, weaned down high-flow nasal cannula to nasal cannula, started Lasix 40 IV twice daily. Cardiology involved. Noted to have new onset atrial fibrillation since afternoon of 09/12/2024, the patient is started on metoprolol per Cardiology and suggested to start digoxin if needed. Neurology recommended to start anticoagulation for Afib after 10/03/24 and at that time to stop aspirin. Cardiology aware of Neurology recommendations. PT/OT on board working on disposition Acute encephalopathy, likely secondary to below: Worse Intraparenchymal hemorrhage of brain Delirium due to general medical condition: Worsened to today Neurology on board, CTA head on 09/12 and recommend to start aspirin Continue Lipitor 40 mg daily Continue with Keppra 500 mg twice daily Continue neuro checks Citalopram discontinued given prolonged QTC Continue to maintain delirium precautions Given significant agitation trazodone 12.5 mg scheduled three times daily. Can give Zyprexa/Haldol as needed for agitation Can give Depakote Sprinkles 125 mg q.8 hours as needed for agitation Continue to maintain sleep protocol Pimentel catheter removed yesterday to reduce agitation AFib with RVR Hypokalemia - this morning labs pending Hypomagnesemia - resolved Toprol dose increased to 100 mg daily Aggressive potassium replacement We will recheck potassium in the p.m. Patient continues to be RVR, we will recheck whole blood potassium, if within normal limits then wewill start the patient on digoxin. Update: Whole blood potassium 4.7. We will did the patient with 500 mcg, followed by 250 mcg q.6 hours x2 We will keep potassium more than 4, magnesium more than 2 Per Neurology patient to start anticoagulation 30 days from initial stroke presentation to stop aspirin when initiating anticoagulation Heart failure with reduced ejection fraction, new onset Echo showing EF of 30% Patient is started on GDMT Continue aspirin 81 mg daily Continue Lipitor Continue patient Toprol-XL 100 mg daily Continue lisinopril 10 mg daily Start the patient on spironolactone 25 mg daily We will switch to Lasix 40 mg p.o. daily PAD No palpable DP pulse in LLE but able to achieve doppler signal on, PT present -JENN 09/06 was 0.5 on LLE -Vascular surgery outpt eval as patient cannot be on any antiplt/coagulant for at least 4 weeks, holding ASA for at least a week BPH: cw finasteride and flomax Discussed with patient's son at bedside, answered all questions to best of my ability PHARMACOLOGIC VTE PROPHYLAXIS: hEParin CODE STATUS: No Code EXPECTED DISCHARGE DATE: 09/17/2024 I spent a total of 52 minutes coordinating, documenting, and providing care for this patient excluding time spent in the performance of separately billed services or time spent by another provider/QHP. * Emelia Garcia, HESHAM Gan - 09/14/2024 9:09 AM EST PROGRESS NOTE - Heart Failure [facility]-[address] [address] Name: Goran Hester Location: [facility] A465/A Date: 09/14/2024 Time: 9:09 AM SUBJECTIVE: Remains in Afib RVR. Agitated, delirious. OBJECTIVE: Most Recent Vital Signs: BP: 156 mmHg/78 mmHg (02/19/25 0844) Pulse: 121 (09/14/24843) Resp: 18 (09/14/24611) Temp: 36.72 C (09/14/24611) Temp Summary: Temp Min: 36.2 C (97.2 F) Max: 37.5 C (99.5 F) SpO2: 93 % (09/14/24611) O2 flow rate: 0 L/MIN (09/14/24611) Supplemental O2 Delivery: Room Air, None (09/14/24611) Intake/Output Summary (Last 24 hours) at 09/14/2024908 Last data filed at 09/14/2024599 Gross per 24 hour Intake 1409.91 ml Output 2750 ml Net -1340.09 ml Net IO Since Admission: -2,068.45 mL [09/14/24908] Weight: Patient Vitals for the past 72 hrs: Weight 09/14/24611 96.2 kg (212 lb 1.6 oz) 09/13/24 0556 97.9 kg (215 lb 12.8 oz) 09/12/24 0230 98.9 kg (218 lb 1.6 oz) Vital Signs Last 24 Hours: Systolic BP: Most Recent Systolic BP Av.4 mmHg Min: 126 mmHg Max: 175 mmHg Temperature: Temp Av.7 C (98 F) Min: 36.2 C (97.2 F) Max: 37.5 C (99.5 F) Pulse: Pulse Av.8 Min: 110 Max: 148 Respirations: Resp Av.2 Min: 18 Max: 20 SpO2: SpO2 Av % Min: 91 % Max: 95 % Limited exam due to agitation. General: agitated, . Neuro: delirious Cardiac: Tachycardic, irregularly irregular Extremities: No edema magnesium sulfate 1 g in d5w 100mL LOCKED DOSE potassium CHLORide liquid 40 mEq Iron Sucrose (Venofer) 300 mg in NSS 250 mL ivpb metoprolol succinate XL (toPROL XL) tab 75 mg Metoprolol Tartrate (Lopressor) inj 5 mg sodium bicarbonate tab 650 mg traZODone (Desyrel) tab 12.5 mg aspirin chew tab 81 mg Furosemide (Lasix) inj 40 mg Acetaminophen (Tylenol) tab 650 mg insulin aspart (NovoLOG) inj Lisinopril (Prinivil) tab 10 mg tamsulosin (Flomax) cap 0.4 mg citalopram (Celexa) oral soln 10 mg Finasteride (Proscar) tab 5 mg melatonin tab 6 mg Docusate Sodium (Colace) oral liquid 100 mg Polyethylene Glycol 3350 (Miralax) oral powder 17 g senna (Senokot) 1 Tablet dextrose 50% inj 25 mL dextrose 50% inj 50 mL glucagon (Glucagen) inj 1 mg Glucose (Glutose 15) 40 % gel 15 g of glucose Glucose (Glutose 15) 40 % gel 30 g of glucose glucose chew tab 16 g [CANCELED] Ventilation Method: Acute Non-Invasive --- PEEP/EPAP/CPAP: 5 --- Changes Per Adult Protocol: Yes AND oxygen GAS albuterol-ipratropium (Duoneb) inhalation solution 3 mL Benzonatate (Tessalon Perles) cap 100 mg dorzolamide (Trusopt Ocumeter Plus) 2 % ophthalmic solution 1 Drop labetalol (Trandate) inj 10 mg cycloSPORINE (Restasis) 0.05 % ophthalmic emulsion 1 Drop hEParin inj 5,000 Units polyvinyl alcohol-povidone PF (Refresh) ophthalmic solution 1 Drop sodium chloride 0.9 % flush peripheral lucy 3 mL Current Outpatient Medications Medication Instructions AMBULATORY MISCELLANEOUS MEDICATION Dorzolamide HCI-Timolol 22.3-6.8: Administer 1 drop in both eyes twice daily amLODIPine (NORVASC) 2.5 mg, Oral, Daily(AM) aspirin enteric coated 81 mg, Oral, Daily(AM) atorvaSTATin (LIPITOR) 40 mg, Oral, Daily(AM) Cholecalciferol 50 MCG (1999) Oral Tablet 1 Tablet, Oral, Daily(AM) citalopram (CELEXA) 10 mg, Oral, Daily(AM) cycloSPORINE 0.05 % Ophthalmic Emulsion (Restasis) 1 Drop, Both eyes, BID (.AM/PM) Dorzolamide HCl-Timolol Mal 2-0.5 % Ophthalmic Solution (Cosopt Ocumeter Plus) 1 Drop, Ophthalmic, BID (.AM/PM) Dulaglutide (TRULICITY) 4.5 mg, Subcutaneous, THURSDAY Ferrous Sulfate (FEOSOL) 325 mg, Oral, BREAKFAST Finasteride (PROSCAR) 5 mg, Oral, Daily(AM) glipiZIDE XL (GLIPIZIDE XL) 10 mg, Oral, Daily(AM) Lisinopril (PRINIVIL) 5 mg, Oral, Daily(AM) Melatonin 5 mg, Oral, HS metFORMIN ER (GLUCOPHAGE XR) 1,000 mg, Oral, BID (.AM/PM) metoprolol succinate XL (TOPROL XL) 75 mg, Oral, Daily(AM) pantoprazole (PROTONIX) 40 mg, Oral, Daily(AM) LABS: Labs reviewed as indicated below: 09/14/24 06:44 SODIUM 140 POTASSIUM 2.8 (L) CHLORIDE 102 CO2 21 (L) BUN 13 CREATININE 1.5 (H) EGFR 45 (L) ANION GAP 17 (H) GLUCOSE 121 (H) CALCIUM 8.7 Magnesium 1.7 Phosphorus 3.2 IMAGING: Echo report from [facility], October 2023: -EF of 30-35% -global hypokinesis mildly concentric left ventricular hypertrophy -no valvular abnormalities. Echo obtained at [facility] 09/06/24 : -LV ejection fraction is 30-34% (moderately reduced). There is diffuse hypokinesis to akinesis. There is no left ventricular mural thrombus. No mural thrombus was identified but the apical wall motion defect could serve as a nidus for thromboembolism. The aortic root and proximal ascending aorta are mildly enlarge IMPRESSION and PLAN: (Discussed with Dr. Kang) New Onset atrial fibrillation with RVR Acute systolic heart failure Acute hypoxic respiratory failure CAD, ND, s/p several PCIs HTN Hypokalemia Hypomagnesemia - remains in AFib with RVR, rates 120s.. Potassium 2.8, magnesium 1.7 - aggressively replete potassium, replete magnesium. Goal potassium greater than 4, magnesium greater than 2. - If remains in atrial fibrillation after morning metoprolol, repleting electrolytes, recommended digoxin load. Give 500 mcg IV x1 then 250 mcg q.6 hours x2. - continue metoprolol succinate 75 mg daily, can increase as needed for rate control - continue lisinopril 10 mg daily - consider spironolactone 25 mg daily for neuro hormonal regulation, potassium-sparing - continue aspirin 81 mg daily, start Eliquis as able per Neurology recommendations. - Continue to monitor renal function and electrolytes. Maintain K > 4, Mg > 2 - Recommend daily standing weights, strict I/Os, adhering to a 2L fluid restrict and 2g sodium restricted diet - rest per primary team I spent a total of 40 minutes coordinating, documenting, and providing care for this patient excluding time spent in the performance of separately billed services or time spent by another provider/QHP. HESHAM Aggarwal Jr Department [place] [address] * Catalino Valentino MD - 09/14/2024 7:39 AM EST Images from the original note were not included. [facility] A465/A INTERVAL HISTORY: Patient remained in AFib RVR in the 130s. Patient was given dose of metoprolol Patient was seen and examined bedside Patient significantly agitated and delirious Remains tachycardic with AFib with RVR with a heart rate in the 120s Patient unable to participate in review of systems and thinks he is in a restaurant Pimentel catheter was removed Objective Physical Exam Most Recent Vital Signs: BP: 175 mmHg/89 mmHg (09/14/24611) Pulse: 126 (09/14/24611) Resp: 18 (09/14/24611) Temp: 36.72 C (09/14/24611) Temp Summary: Temp Min: 36.2 C (97.2 F) Max: 37.5 C (99.5 F) SpO2: 93 % (09/14/24611) O2 flow rate: 0 L/MIN (09/14/24611) Supplemental O2 Delivery: Room Air, None (09/14/24611) Physical Exam Constitutional: General: He is not in acute distress. HENT: Head: Normocephalic. Cardiovascular: Rate and Rhythm: Tachycardia present. Rhythm irregular. Abdominal: Tenderness: There is no abdominal tenderness. Musculoskeletal: Right lower leg: No edema. Left lower leg: No edema. Neurological: General: No focal deficit present. Mental Status: He is alert. 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 * DIFFERENTIAL AND PLAN: 89 year old male known to have HTN, type 2 diabetes mellitus not on rat exterminator insulin with CKD stage 3b, DLD, ND s/p PCI X 5 with stents placed (last ND 08/2022 complicated by 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), BPH who initially presented to [facility] from assisted living facility for change in mentation and agitation on 09/05 found to have a L MCA infarct with hemorrhagic conversion. Patient is neurologically intact and has periods of lucency. Hospital course complicated by severe hospital/ICU delirium, new onset HFrEF, flash pulmonary edema, and urinary retention. Transferred to Neurology Service on 09/11. Transferred to Medicine on 09/12 due to increase in O2 requirement in setting of pulmonary edema and HFrEF. Since patient transferred to Medicine, weaned down high-flow nasal cannula to nasal cannula, started Lasix 40 IV twice daily. Cardiology involved. Noted to have new onset atrial fibrillation since afternoon of 09/12/2024, the patient is started on metoprolol per Cardiology and suggested to start digoxin if needed. Neurology recommended to start anticoagulation for Afib after 10/03/24 and at that time to stop aspirin. Cardiology aware of Neurology recommendations. PT/OT on board working on disposition Acute encephalopathy, likely secondary to below: Worse Intraparenchymal hemorrhage of brain Delirium due to general medical condition: Worsened to today Neurology on board, CTA head on 09/12 and recommend to start aspirin Continue Lipitor 40 mg daily Continue with Keppra 500 mg twice daily Continue neuro checks Citalopram discontinued given prolonged QTC Continue to maintain delirium precautions Given significant agitation trazodone 12.5 mg scheduled three times daily. Can give Zyprexa/Haldol as needed for agitation Can give Depakote Sprinkles 125 mg q.8 hours as needed for agitation Continue to maintain sleep protocol We will remove Pimentel catheter to reduce agitation AFib with RVR Hypokalemia Hypomagnesemia Continue Toprol-XL 75 mg, can increase up to 100 mg twice daily Aggressive potassium replacement We will replace magnesium We will recheck potassium in the p.m. We will repeat potassium after replacement, if returns to normal limits then can potentially start digoxin if patient remains in AFib with a RVR We will await for patient to come down to see if he needs to be started on digoxin Per Neurology patient to start anticoagulation 30 days from initial stroke presentation to stop aspirin when initiating anticoagulation PAD No palpable DP pulse in LLE but able to achieve doppler signal on, PT present -JENN 09/06 was 0.5 on LLE -Vascular surgery outpt eval as patient cannot be on any antiplt/coagulant for at least 4 weeks, holding ASA for at least a week BPH: cw finasteride and flomax Discussed with patient's son at bedside, answered all questions to best of my ability PHARMACOLOGIC VTE PROPHYLAXIS: hEParin CODE STATUS: No Code EXPECTED DISCHARGE DATE: 09/17/2024 I spent a total of 54 minutes coordinating, documenting, and providing care for this patient excluding time spent in the performance of separately billed services or time spent by another provider/QHP. * Michelle Kaur MD - 09/13/2024 10:45 AM EST Images from the original note were not included. [facility] A465/A INTERVAL HISTORY: The patient was seen examined this morning at the bedside, was resting comfortably, on 6 L nasal cannula, opens eyes on verbal commands, awake alert and oriented this morning, does not seem to be in distress, denied any overnight events. Later noted to be tachycardic, telemetry checked, seems to be in new onset Afib with RVR, added additional metoprolol succinate 25 mg 1 tablet as per Cardiology, will recheck if still in RVR will start digoxin. Review of systems done with the patient negative Objective Physical Exam Most Recent Vital Signs: BP: 148 mmHg/81 mmHg (09/13/24 1037) Pulse: 118 (09/13/24 1037) Resp: 20 (09/13/24 1037) Temp: 36.72 C (09/13/24 1037) Temp Summary: Temp Min: 36.7 C (98.1 F) Max: 37.1 C (98.8 F) SpO2: 91 % (09/13/24 1037) O2 flow rate: 6 L/MIN (09/13/24 1037) Supplemental O2 Delivery: Nasal Cannula (09/13/24 1037) General: no acute distress. 6 L nasal cannula, actinic keratosis HEENT: Head normocephalic. PERRLA. Moist mucous membranes. No scleral icterus. No cervical lymphadenopathy Lungs: No accessory muscle use CV: Regular rate and rhythm. No murmur. No JVD. No edema Abdomen: Soft, non-tender and non-distended. No palpable masses; pimentel in place with clear/ yellow urine Extremities: No edema. Pulses intact Skin: No rashes or lesions. Warm to touch Neurologic: No focal neurological deficits. MACE; following commands Psychiatric: Cooperative. Appropriate mood and affect, Urethral Catheter Coude (Active) Number of days: 2 Peripheral Line Right;Lower Arm 20 Gauge (Active) Number of days: 6 Peripheral Line Upper;Right Arm 20 Gauge (Active) Number of days: 5 STUDIES: Encounter Orders Labs and other studies reviewed with pertinent findings noted below: Labs: Recent Results (from the past 6 hours) MAGNESIUM Collection Time: 09/13/24 5:58 AM Result Value Ref Range Magnesium 1.9 1.5 - 2.6 mg/dL PHOSPHORUS Collection Time: 09/13/24 5:58 AM Result Value Ref Range Phosphorus 4.2 2.5 - 4.8 mg/dL BASIC METABOLIC PANEL Collection Time: 09/13/24 5:58 AM Result Value Ref Range BUN 13 6 - 20 mg/dL CREATININE 1.4 (H) 0.6 - 1.2 mg/dL EGFR 49 (L) >=60 mL/min SODIUM 139 135 - 146 mmol/L POTASSIUM CHLORIDE 105 98 - 107 mmol/L CO2 18 (L) 22 - 32 mmol/L ANION GAP 16 (H) 7 - 15 mmol/L GLUCOSE 120 70 - 120 mg/dL CALCIUM 8.2 (L) 8.4 - 10.2 mg/dL GLUCOSE METER, POINT OF CARE Collection Time: 09/13/24 7:43 AM Result Value Ref Range Glucose - POCT 107 70 - 120 mg/dL Imaging: CT HEAD/BRAIN WO CONTRAST Final Result EXAM: CT HEAD/BRAIN WO CONTRAST-09/12/2024 HISTORY: 89 y/o M, follow-up IPH prior to starting AP TECHNIQUE: CT scan of the head performed without intravenous contrast. COMPARISON: CT head and MR brain 09/06/2024. 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 Other scattered small infarcts of similar age (including at the right frontal operculum) better demonstrated on prior MR brain 09/06/2024. Acute intraparenchymal hematoma in the left temporal lobe is unchanged in size and configuration, measuring 2.8 x 4.3 x 3.2 cm. Similar surrounding edema and mild mass effect with effacement of sulci, partial effacement of the left sylvian fissure, and effacement of the left lateral ventricle. No substantial midline shift and no herniation. Encephalomalacia in the right more than left occipital lobes and right cerebellar hemisphere, compatible with chronic infarcts. Mild patchy hypoattenuation in the periventricular white matter, most suggestive of chronic microvascular ischemic changes. Global cerebral volume loss. No discernible extra-axial fluid collections. No hydrocephalus. Basal cisterns are patent. Vascular calcification at the skull base. Bilateral lens replacements. Scattered mild mucosal thickening in the paranasal sinuses with fluid in the left frontal sinus. Mastoid air cells are well aerated. The calvarium is intact. IMPRESSION IMPRESSION: 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 The hematoma in the left temporal lobe has not significantly changed in size and there is no evidence of new intracranial hemorrhage. Similar edema and mild mass effect without midline shift or herniation. Other scattered subacute ischemic infarcts are better demonstrated on prior MR brain. 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 XR CHEST 1 VIEW Final Result EXAM XR CHEST 1 VIEW-09/11/2024 11:12 pm HISTORY SOB and increase O2 supply COMPARISON XR CHEST 1 VIEW, ACC: [id number], dated 2024-09-10 03:37:51; XR CHEST 1 VIEW, ACC: [id number], dated 2024-09-08 11:36:42 TECHNIQUE Frontal chest radiograph obtained. FINDINGS Stable cardiomediastinal. A loop recorder projected over the left chest. Stable pulmonary opacities. Pleural effusions and basilar atelectasis. No pneumothorax. Degenerative osseous changes. IMPRESSION IMPRESSION 1. No significant interval change. XR CHEST 1 VIEW Final Result EXAM XR CHEST 1 VIEW-09/10/2024 3:42 am HISTORY short of breath COMPARISON 09/08/24 TECHNIQUE Single image FINDINGS Loop recorder projects over the left cardiac silhouette. Stable enlargement of the cardiomediastinal silhouette. Atherosclerotic calcification of the thoracic aorta. Bibasilar opacities with small bilateral pleural effusions, unchanged. Diffuse increased pulmonary vascular markings, suggestive of pulmonary edema. No pneumothorax. Degenerative osseous changes. IMPRESSION IMPRESSION No significant interval change in the chest XR CHEST 1 VIEW Final Result EXAM XR CHEST 1 VIEW - 09/08/2024 12:04 pm HISTORY flash pulm edema likely COMPARISON No Comparison. TECHNIQUE Frontal view of the chest. FINDINGS Support apparatus: Loop recorder Diffuse ground-glass opacities and prominent interstitial markings. Likely small pleural effusions. No sizable pneumothorax. Prominent cardiac silhouette. Atherosclerosis. Degenerative osseous changes. IMPRESSION IMPRESSION Pulmonary edema. VASC ANKLE BRACHIAL INDICES WITHOUT PPG (PAD) Final Result VASCULAR LAB RESULTS DATE OF EXAMINATION: 09/06/24 INDICATION: asymetrical pulse exam with cold LLE ANKLE BRACHIAL INDEX OF THE LOWER EXTREMITIES Immediately before proceeding with the vascular lab procedure reported below, the identity of the patient, the correct exam and the correct procedural site were identified. Continuous wave doppler and appropriate size pressure cuffs were utilized during the examination. Findings: The right brachial artery blood pressures 136 mmHg respectively. On the right, the posterior tibial artery waveform is triphasic and has an amplitude which is excellent. . The right dorsalis pedis artery waveform is triphasic and has an amplitude which is excellent. The right peroneal artery waveform is biphasic and has an amplitude which is good. The tibial pressures range from 156 mmHg to 168 mmHg. On the left, the posterior tibial artery waveform is biphasic and has an amplitude which is decreased. . The left dorsalis pedis artery waveform is biphasic and has an amplitude which is nearly flat . . The tibial pressures are 70 mmHg IMPRESSION: JENN at rest is 1.24 on the right and 0.51 on the left. 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 Lower extremity Doppler Evaluation is normal at rest with no evidence of significant arterial occlusive disease. For the left lower extremity: Lower extremity Doppler Evaluation is consistent with moderate arterial occlusive disease. CT HEAD/BRAIN WO CONTRAST Final Result EXAM: CT HEAD/BRAIN WO CONTRAST - 09/06/2024 HISTORY: Abnormal neurologic exam, assess for evolution of bleed TECHNIQUE: CT scan of the head was performed without intravenous contrast. COMPARISON: MRI brain dated 09/06/2024, CT head dated 09/05/2024. 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 No evidence of significant midline shift. Additional scattered foci of bilateral cerebral hemispheric peripheral late acute/early subacute infarcts, potentially embolic and better appreciated on prior MRI brain dated 09/06/2024. Generalized volume loss is appreciated. Bilateral, right greater than left, occipital encephalomalacia and right cerebellar encephalomalacia are again noted, consistent with prior infarcts. Patchy hypodensities in the periventricular and deep cerebral white matter are nonspecific, but most commonly represent chronic microvascular ischemic changes. Intracranial vascular calcifications are noted. There is no evidence of hydrocephalus. 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 Additional mild paranasal mucosal thickening is noted. The mastoid air cells are clear. The calvarium is intact. IMPRESSION IMPRESSION: 1. 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 No evidence of significant midline shift. 2. Additional scattered foci of bilateral cerebral hemispheric peripheral late acute/early subacute infarcts, potentially embolic and better appreciated on prior MRI brain dated 09/06/2024. MRI BRAIN W WO CONTRAST Final Result EXAM MRI BRAIN WITH AND WITHOUT CONTRAST - 09/06/2024 HISTORY 89 y/o M known intraparenchymal hematoma, evaluate for underlying lesion. TECHNIQUE Multiplanar, multisequence magnetic resonance imaging of the brain was performed before and after the administration of intravenous contrast. COMPARISON CT head/brain 09/05/2024 and CTA head/neck 09/05/2024 FINDINGS Evaluation is limited by patient motion artifact. Expected evolution of the left temporal lobe intraparenchymal hematoma which measures approximately 3.9 x 2.6 cm. Surrounding vasogenic edema results in deformation of the overlying sulci and left lateral ventricle. No significant midline shift. No abnormal enhancement or other signal abnormalities to suggest an underlying lesion. There is a overlying dural thickening and enhancement, likely reactive. A few smaller adjacent foci of susceptibility artifact within the left parietal lobe associated with diffusion restriction likely represent late subacute infarcts with petechial type hemorrhages. There are additional scattered foci of restricted diffusion within the bilateral temporal, parietal and left frontal cortex/subcortical white-matter with mild associated T2/FLAIR signal hyperintensity suggestive of embolic late acute/early subacute infarcts. Global brain volume loss is appreciated. Encephalomalacia within the right medial occipital pole and right cerebellar hemisphere are likely the sequale of remote infarct. There is mild ex vacuo dilation of the right lateral ventricle posterior horn. Additional scattered T2/FLAIR signal hyperintensities within the deep cerebral and periventricular white matter are nonspecific but most commonly associated with chronic microvascular ischemic disease. Surgically replaced [place] ocular lenses. Opacification of the frontal sinus. Trace inflammatory paranasal sinus mucosal thickening elsewhere. Mucous retention cyst within the posterior left nasal cavity along the septum. Calvarium and visualized craniofacial soft tissues are unremarkable. IMPRESSION IMPRESSION Evolving left temporal lobe intraparenchymal hematoma with surrounding edema and stable (overall mild) mass-effect, favoring hemorraghic transformation/secondary hematoma within a recent left MCA territory infarct. An underlying lesion such as cerebral amyloid angiopathy, AVM or mass lesion are not entirely excluded. Recommend follow-up in 6 weeks after further hematoma resolution. Additional scattered foci of bilateral cerebral hemispheric peripheral late acute/early subacute infarcts, possibly cardioembolic given distribution. I have personally reviewed this examination and agree with the resident/fellow physician's interpretation. CTA HEAD/CTA NECK Final Result EXAM CTA HEAD/CTA NECK - 09/05/2024 10:06 pm HISTORY stroke COMPARISON CT HEAD_BRAIN WO CONTRAST, ACC: [id number], dated 2024-09-05 14:24:17; RADIOLOGY EXAM - CT (IMAGES ONLY, NO REPORT), ACC: [id number], dated 2024-09-05 11:06:25 TECHNIQUE Axial images obtained through the head without contrast. CT angiography was performed using thin helical acquisition with dynamic bolus contrast injection of the head and neck, and 2-D and 3-D reconstructed images are provided. FINDINGS CT HEAD WITHOUT CONTRAST: A grossly similar 4.2 x 2.7 cm intraparenchymal hemorrhage is again noted in the left temporal lobe. There is similar surrounding edema in the left temporal lobe and inferior parietal level, suggestive of infarct with hemorrhagic transformation. There is similar mild effacement of the left lateral ventricle. No definite abnormal enhancement or artery venous malformation is seen. Similar chronic infarcts involving the bilateral occipital lobes and bilateral cerebellar hemispheres are again seen. There is global cerebral volume loss. There is no midline or downward shift. No acute osseous abnormality detected. Visualized paranasal sinuses and mastoid air cells are grossly clear. CTA HEAD AND NECK: Arch and mediastinum: Atherosclerotic disease is seen involving the aortic arch and origins of the great vessels without significant luminal stenosis. The aortic arch is of normal caliber and there is normal anatomy of the great vessel origins. Multiple prominent mediastinal lymph nodes are seen. Anterior circulation: On the right side the common carotid artery is of normal caliber. Atherosclerotic disease is seen on the right carotid bifurcation without significant internal carotid artery stenosis. The intracranial segments of the right internal carotid artery show atherosclerotic disease with resultant [id number] luminal stenosis of the right cavernous internal carotid artery. The anterior and middle cerebral arteries are patent, and show no significant stenosis. On the left side, the common carotid artery is of normal caliber. Atherosclerotic disease is seen involving the left carotid bifurcation without significant internal carotid artery stenosis. The intracranial segments of the left internal carotid artery show atherosclerotic disease with resultant mild luminal stenosis of the left cavernous internal carotid artery. The anterior and middle cerebral arteries are patent, and show no significant stenosis. Posterior circulation: There is nonvisualization of the right vertebral artery from its origin and dense atherosclerotic plaque at the origin of the right vertebral artery. Atherosclerotic disease is seen involving the origin of the left vertebral artery with resultant moderate luminal stenosis. The remainder of the left vertebral artery appears patent. The basilar artery is of normal caliber. Both posterior cerebral arteries arise from the basilar tip and are of normal caliber. There is satisfactory enhancement of the dural venous sinuses superficial and deep systems. There is no evidence of aneurysm, vascular malformation. Additional findings: Multilevel degenerate changes are seen in the cervical spine. No acute osseous lesion is detected. No gross mass or adenopathy is detected in the neck. Bilateral small pleural effusions are seen in the visualized upper chest. The lung apices show no suspicious nodules. IMPRESSION IMPRESSION 1. A grossly similar intraparenchymal hemorrhage in the left temporal lobe with surrounding edema, suggestive of NC territory infarct with hemorrhagic transformation. No definite abnormal enhancement or arteriovenous malformation. 2. 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 If there is clinical concern for dissection, consider MR angiography of the neck for further evaluation 3. 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 4. Atherosclerotic disease involving the cavernous internal carotid arteries with resultant [id number] 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 5. Multiple prominent mediastinal lymph nodes, which could represent reactive lymph nodes. RADIOLOGY EXAM - CT (IMAGES ONLY, NO REPORT) Final Result This is an imaging study not interpreted or resulted by a [employer] or [employer] contracted radiologist. CT HEAD/BRAIN WO CONTRAST Final Result EXAM: CT HEAD WITHOUT CONTRAST - 09/05/2024 HISTORY: 4.1 x2.8 cm intraparenchymal hematoma in L temporal lobe seen at 0148. Assess progression TECHNIQUE: CT scan of the head was performed without intravenous contrast. COMPARISON: CT head dated 09/05/2024 FINDINGS: Left temporal lobe intraparenchymal hematoma is stable in size from prior examination, measuring approximately 4.1 x 2.7 cm, with mild adjacent subarachnoid hemorrhage. Cytotoxic edema in the adjacent temporal lobe and inferior parietal lobule, consistent with ischemic infarction. Edema and mass effect are stable. Bilateral, right greater than left, occipital encephalomalacia and right cerebellar encephalomalacia, consistent with prior infarcts. No evidence of hydrocephalus. Complete opacification of the left frontal sinus. The mastoid air cells are clear. The calvarium is intact. IMPRESSION IMPRESSION: Suspected left MCA-territory ischemic infarction with stable left temporal hemorrhagic conversion and mild local mass effect. MRI would be of benefit for further evaluation. A request to the energy assistant was placed 09/05/2024, 3:02 pm to notify the ordering clinician that the report is available in [facility] for review. I have personally reviewed this examination and agree with the resident/fellow physician's interpretation. 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 * 89 year old male known to have HTN, type 2 diabetes mellitus not on mcfp insulin with CKD stage 3b, DLD, ND s/p PCI X 5 with stents placed (last ND 08/2022 complicated by 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), BPH who initially presented to [facility] from assisted living facility for change in mentation and agitation on 09/05 found to have a L MCA infarct with hemorrhagic conversion. Patient is neurologically intact and has periods of lucency. Hospital course complicated by severe hospital/ICU delirium, new onset HFrEF, flash pulmonary edema, and urinary retention. Transferred to Neurology Service on 09/11. Transferred to Medicine on 09/12 due to increase in O2 requirement in setting of pulmonary edema and HFrEF. Since patient transferred to Medicine, weaned down high-flow nasal cannula to nasal cannula, started Lasix 40 IV twice daily. Cardiology involved. Noted to have new onset atrial fibrillation since afternoon of 09/12/2024, the patient is started on metoprolol per Cardiology and suggested to start digoxin if needed. Neurology recommended to start anticoagulation for Afib after 10/03/24 and at that time to stop aspirin. Cardiology aware of Neurology recommendations. PT/OT on board working on disposition Acute encephalopathy, likely secondary to below: stable / resolving Intraparenchymal hemorrhage of brain Delirium due to general medical condition: Stable Neuro on board, reviewed the [facility] 09/12 and suggested to start ASA 81 Cw Lipitor 40 daily Zio patch on dc Neuro checks Q4 Cw keppra 500 BID Cw SAND BOBBER citalopram Delirium stable now, stopped q.6 valproate Follow-up psych evaluation Delirium precautions; light on during the day, maintain hearing aids, eyeglasses, reorient during the day, physical activity, encourage OOB Sleep protocol CVM at bedside, will attempt to remove it today Acute hypoxic respiratory failure: likely secondary to below: Resolving Acute on chronic HF reduced EF CAD Hx ND s/p PCI with 5 stents HTN Patient currently on 6 L nasal cannula but SpO2 100%, weaned down as tolerated to maintain SpO2 more than 88% Resp driven protocol, spirometry and flutter valve therapy Duonebs q4 prn Fu cards recs Monitor on tele Cw lasix 40 iv bid TTE 09/06 showed an EF 30-34%, no evidence of thrombus, no comment on PFO Increased SAND BOBBER lisinopril to 10 mg daily Started metoprolol succinate 75 mg 1 tablet daily PRN labetalol 10 mg for SBP > 160 mmHg New onset Afib Patient noted to be in RVR this morning Ordered additional dose of metoprolol succinate 25 mg 1 tablet in changed to 75 mg from tomorrow asper Cardiology Will monitor on telemetry and re-evaluate later today, if still in RVR, will start digoxin per Cardiology Discussed with Neurology requested to start anticoagulation 30 days from in the initial stroke presentation and when starting anticoagulation then to stop aspirin. 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 exterminator insulin with CKD stage 3b FS ACHS Recent HbA1c 6.9 Cw SSI Chronic iron-deficiency anemia No active bleed Started ferrous sulfate NAGMA Likely secondary to CKD Started sodium bicarbonate Daily bmp PAD No palpable DP pulse in LLE but able to achieve doppler signal on, PT present -JENN 09/06 was 0.5 on LLE -Vascular surgery outpt eval as patient cannot be on any antiplt/coagulant for at least 4 weeks, holding ASA for at least a week BPH: cw finasteride and flomax PHARMACOLOGIC VTE PROPHYLAXIS: hEParin CODE STATUS: No Code EXPECTED DISCHARGE DATE: 09/15/2024 I spent a total of 54 minutes coordinating, documenting, and providing care for this patient excluding time spent in the performance of separately billed services or time spent by another provider/QHP. * Thea Beard CRNP - 09/13/2024 9:28 AM EST Images from the original note were not included. PROGRESS NOTE - Heart Failure [facility]-[address] [id number] Name: Goran Hester Location: [facility] A465/A Date: 09/13/2024 Time: 9:28 AM SUBJECTIVE: Goran is awake and alert this morning. Denies discomfort, denies dyspnea. Tells me he has had prior cardiac care at [facility] and in [place]. OBJECTIVE: Most Recent Vital Signs: BP: 143 mmHg/71 mmHg (09/13/24737) Pulse: 119 (09/13/24737) Resp: 18 (09/13/24737) Temp: 37.11 C (09/13/24737) Temp Summary: Temp Min: 36.7 C (98.1 F) Max: 37.1 C (98.8 F) SpO2: 99 % (09/13/24737) O2 flow rate: 6 L/MIN (09/13/24737) Supplemental O2 Delivery: Nasal Cannula (09/13/24737) Vital Signs Last 24 Hours: Systolic BP: Most Recent Systolic BP Av.1 mmHg Min: 131 mmHg Max: 161 mmHg Temperature: Most Recent Temperature Av.9 C Min: 36.72 C Max: 37.11 C Pulse: Pulse Av.4 Min: 86 Max: 119 Respirations: Resp Av Min: 18 Max: 20 SpO2: SpO2 Av.9 % Min: 97 % Max: 99 % Constitutional: no acute distress, more alert this morning Neck: supple, normal range of motion, mild JVD CV: Irregular on exam , (+) tachycardic Chest: normal respiratory effort, scant rales in R base Abdomen: normal: soft, bowel sounds normal, no masses, tenderness or organomegaly Extremities: Pedal edema improved from yesterday Male : Pimentel LABS: Labs reviewed as indicated below: Latest Reference Range & Units 09/13/24 05:58 SODIUM 135 - 146 mmol/L 139 POTASSIUM SEE REPORT CHLORIDE 98 - 107 mmol/L 105 CO2 22 - 32 mmol/L 18 (L) BUN 6 - 20 mg/dL 13 CREATININE 0.6 - 1.2 mg/dL 1.4 (H) EGFR >=60 mL/min 49 (L) ANION GAP 7 - 15 mmol/L 16 (H) GLUCOSE 70 - 120 mg/dL 120 CALCIUM 8.4 - 10.2 mg/dL 8.2 (L) Magnesium 1.5 - 2.6 mg/dL 1.9 Phosphorus 2.5 - 4.8 mg/dL 4.2 IMAGING: Echo report from [facility], October 2023: -EF of 30-35% -global hypokinesis mildly concentric left ventricular hypertrophy -no valvular abnormalities. Echo obtained at [facility] 09/06/24 : -LV ejection fraction is 30-34% (moderately reduced). There is diffuse hypokinesis to akinesis. There is no left ventricular mural thrombus. No mural thrombus was identified but the apical wall motion defect could serve as a nidus for thromboembolism. The aortic root and proximal ascending aorta are mildly enlarge Working on obtaining cardiology notes from [facility]. IMPRESSION and PLAN: (Discussed with Dr. Kang) New Onset Afib Acute systolic heart failure Acute hypoxic respiratory failure CAD, ND, s/p several PCIs HTN Afib w/ RVR this morning, rate in the 120s, BP 143/71, pt asymptomatic. Afib appears to have started 09/12 around 3pm. Received metoprolol succinate 50mg this morning. Recommended another dose of metoprolol succinate, 25mg this morning for rate control If this does not improve rate, consider digoxin IV. Will need neurology input re: anticoagulation in setting of recent CVA. Echo imaging reviewed again this morning, unable to rule out thrombus due to apical wall motion defect. Continue IV lasix 40mg BID yet today. Continue Lisinopril 10mg and aspirin 81mg. Daily wts, maintain K > 4 and Mg > 2, 2L fluid restriction and 2gm Na restriction. Thank you, HESHAM Pfeiffer I spent a total of 30-39 minutes (exact time 45 mins) on the date of service in preparation, delivery, and documentation of the care provided to Goran Hester excluding any time spent in the performance of separately billed services or time spent by another provider/QHP. Cosigned by Nicole Kang DO at 09/13/2024 6:00 PM EST Associated attestation - Nicole Kang DO - 09/13/2024 6:00 PM EST I have reviewed the advanced practitioner's documentation on the date of service referenced in note, and I agree with, and take responsibility for the plan of care. 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 Patient was transferredfrom ICU to neuro floors on 09/11. In the evening on 09/11, rapid response called for agitation followed by progressive SOB requiring HFNC. Patient was transferred to medicine service following. Changes since last visit: This morning, patient resting comfortable in bed with improved oxygen requirement now down to 6 L LFNC. NIHSS of 0 on examination today. He is alert and oriented and able to maintain a conversation. No acute concerns. Later in the morning, noted to be in Afib w/ RVR. Pertinent past medical history: No past medical history on file. Pertinent past social history: Social History Tobacco Use Smoking status: Former Types: Cigarettes Smokeless tobacco: Not on file Substance Use Topics Alcohol use: Never Drug use: Not on file Current Medications: Note that completed medications (per the MAR) continue to display for 24 hours. Ordered medicationsto be given in the future also display. Current Facility-Administered Medications Medication Dose Route Frequency Provider Iron Sucrose (Venofer) 300 mg in NSS 250 mL ivpb 300 mg IV Piggyback Daily(AM) Michelle Kaur MD aspirin chew tab 81 mg 81 mg Oral Daily(AM) Michelle Kaur MD Furosemide (Lasix) inj 40 mg 40 mg IV Push BID (0900,1600) Michelle Kaur MD metoprolol succinate XL (toPROL XL) tab 50 mg 50 mg Oral Daily(AM) Michelle Kaur MD sodium bicarbonate tab 325 mg 325 mg Oral TID(AM/NOON/HS) Michelle Kaur MD Valproate Sodium (Depacon) 250 mg in NSS 50 mL ivpb 250 mg IV Piggyback Q8H Michelle Kaur MD Acetaminophen (Tylenol) tab 650 mg 650 mg Oral Q6H PRN Alfreda Thakkar CRNP insulin aspart (NovoLOG) inj Subcutaneous With Meals and HS Alfreda Thakkar CRNP Lisinopril (Prinivil) tab 10 mg 10 mg Oral Daily(AM) Alfreda Thakkar CRNP tamsulosin (Flomax) cap 0.4 mg 0.4 mg Oral Daily(AM) Alfreda Thakkar CRNP citalopram (Celexa) oral soln 10 mg 10 mg Oral Daily(AM) Alfreda Thakkar CRNP Finasteride (Proscar) tab 5 mg 5 mg Oral Daily(AM) Alfreda Thakkar CRNP melatonin tab 6 mg 6 mg Oral HS Alfreda Thakkar CRNP Docusate Sodium (Colace) oral liquid 100 mg 100 mg Oral BID(AM/PM) Alfreda Thakkar CRNP Polyethylene Glycol 3350 (Miralax) oral powder 17 g 1 Packet Oral Daily(AM) Alfreda Thakkar CRNP senna (Senokot) 1 Tablet 1 Tablet Oral Daily(AM) Alfreda Thakkar CRNP dextrose 50% inj 25 mL 25 mL IV Push PRN Alfreda Thakkar CRNP dextrose 50% inj 50 mL 50 mL IV Push PRN Alfreda Thakkar CRNP glucagon (Glucagen) inj 1 mg 1 mg Intramuscular PRN Alfreda Thakkar CRNP Glucose (Glutose 15) 40 % gel 15 g of glucose 15 g of glucose Oral PRN Alfreda Thakkar CRNP Glucose (Glutose 15) 40 % gel 30 g of glucose 30 g of glucose Oral PRN Alfreda Thakkar CRNP glucose chew tab 16 g 16 g Oral PRN Alfreda Thakkar CRNP oxygen GAS Inhalation Oxygen Alfreda Thakkar CRNP albuterol-ipratropium (Duoneb) inhalation solution 3 mL 3 mL Nebulizer Q4H PRN Alfreda Thakkar CRNP Benzonatate (Tessalon Perles) cap 100 mg 100 mg Oral Q8H PRN Alfreda Thakkar CRNP dorzolamide (Trusopt Ocumeter Plus) 2 % ophthalmic solution 1 Drop 1 Drop Both eyes BID(AM/PM) Alfreda Thakkar CRNP labetalol (Trandate) inj 10 mg 10 mg Intravenous Q1H PRN Alfreda Thakkar CRNP cycloSPORINE (Restasis) 0.05 % ophthalmic emulsion 1 Drop 1 Drop Both eyes BID(AM/PM) Alfreda Thakkar CRNP hEParin inj 5,000 Units 5,000 Units Subcutaneous Q8H Alfreda Thakkar CRNP polyvinyl alcohol-povidone PF (Refresh) ophthalmic solution 1 Drop 1 Drop Both eyes Daily 0 Alfreda Thakkar CRNP sodium chloride 0.9 % flush peripheral lucy 3 mL 3 mL IV Push Q8H Alfreda Thakkar CRNP OBJECTIVE: Physical Examination: Most Recent Vital Signs: BP: 131 mmHg/72 mmHg (09/12/242199) Pulse: 89 (09/12/242199) Resp: 18 (09/12/242199) Temp: 36.78 C (09/12/242199) Temp Summary: Temp Min: 36.7 C (98.1 F) Max: 37.1 C (98.7 F) SpO2: 97 % (09/12/242199) O2 flow rate: 6 L/MIN (09/13/24 0000) Supplemental O2 Delivery: Nasal Cannula (09/13/24 0000) Weight: 97.9 kg (215 lb 12.8 oz) (09/13/24 0556) Height: 175.3 cm (5' 9") (09/05/24 1400) Body mass index is 31.87 kg/m. Vital Signs Last 24 Hours: Systolic BP: Most Recent Systolic BP Av.9 mmHg Min: 131 mmHg Max: 161 mmHg Temperature: Most Recent Temperature Av.9 C Min: 36.72 C Max: 37.06 C Pulse: Pulse Av Min: 86 Max: 110 Respirations: Resp Av.3 Min: 18 Max: 20 SpO2: SpO2 Av.6 % Min: 97 % Max: 98 % General Examination: Constitutional: chronically ill-appearing, no acute distress Head/face, ears, nose, throat: normocephalic, atraumatic Cardiovascular: regular rate Psychiatric: normal mood and not agitated Neurologic Examination: Ophthalmoscopic: deferred due to inadequate dilation Mental Status and Orientation: awake, alert, oriented x 3 Memory: poor Attention: normal Knowledge:normal Language: fluctuating, intact this morning Speech: no dysarthria Cranial Nerves: CN 2 - no visual defect on confrontation CN 3, 4, 6 - extra-ocular movements intact and no nystagmus CN 5 - facial sensation intact V1-3 CN 7 - no facial asymmetry CN 8 - reduced hearing BL CN 9, 10 - cough intact CN 11 - shoulder shrug full strength CN 12 - tongue protrudes midline Sensory: intact to light touch Coordination: Not tested Gait: deferred due to fall risk Muscle Tone: did not assess Muscle exam: no drift in any extremities Reflexes: did not asses [employer] Stroke Scale: 1A. LOC: 0 1B. Question: 0 1C. Commands: 0 2. Gaze: 0 3. Visual Suarez: 0 4. Facial Palsy: 0 5A. Arm Left: 0 5B. Arm Right: 0 6A. Leg Left: 0 6B. Leg Right: 0 7. Ataxia: 0 8. Sensory: 0 9. Aphasia: 0 10. Dysarthria: 0 11. Extinction: 0 Total: 0 I have reviewed Radiologic Studies and noted significant findings as follows: CTH 09/12/24 IMPRESSION: 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 The hematoma in the left temporal lobe has not significantly changed in size and there is no evidence of newintracranial hemorrhage. Similar edema and mild mass effect without midline shift or herniation. CTH 09/06/24 IMPRESSION: 1. 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 No evidence of significant midline shift. 2. Additional scattered foci of bilateral cerebral hemispheric peripheral late acute/early subacuteinfarcts, potentially embolic and better appreciated on prior MRI brain dated 09/06/2024 MRI brain w/ and w/o contrast 09/06/24 IMPRESSION: Evolving left temporal lobe intraparenchymal hematoma with surrounding edema and stable (overall mild) mass-effect, favoring hemorraghic transformation/secondary hematoma within a recent left MCA territory infarct. An underlying lesion such as cerebral amyloid angiopathy, AVM or mass lesion are notentirely excluded. Recommend follow-up in 6 weeks after further hematoma resolution. Additional scattered foci of bilateral cerebral hemispheric peripheral late acute/early subacute infarcts, possibly cardioembolic given distribution I have reviewed the following Diagnostic Tests and noted significant findings as follows: TTE w/o bubble study 09/06/24 The examination is adequate to evaluate the referral indication. The qualitative LV ejection fraction is 30-34% (moderately reduced). There is diffuse hypokinesis to akinesis. There is no left ventricular mural thrombus. No mural thrombus was identified but the apical wall motion defect could serve as a nidus for thromboembolism. The aortic root and proximal ascending aorta are mildly enlarged LABS: Labs reviewed as indicated below: Lab results within last 7 days (see chart for full results) Units 09/12/24 0721 09/11/24 0804 09/10/24 0603 HGB g/dL 10.7* 10.8* 11.4* HCT % 33.5* 32.7* 35.3* WBC K/uL 8.02 7.87 7.49 PLT K/uL 190 186 161 Lab results within last 7 days (see chart for full results) Units 09/12/24 0721 09/11/24 0644 09/10/24 0603 SODIUM mmol/L 140 140 142 POTASSIUM mmol/L 3.9 3.8 3.6 CHLORIDE mmol/L 106 106 108* CO2 mmol/L 19* 17* 20* BUN mg/dL 15 15 16 CREATININE mg/dL 1.4* 1.3* 1.4* LDL 42 HbA1c 6.9% IMPRESSION: Patient is a 89yo M with PMHx of HTN, CAD, hx of ND s/p stenting that presented with L [facility] Given MRI findings of surrounding ischemic burden, mostlikely etiology of bleed is ischemic stroke with hemorrhagic transformation now with noted Afib on EKG and telemetry. RECOMMENDATIONS/PLAN: L temporal IPH likely 2/2 ischemic stroke with hemorrhagic transformation 2/2 Afib - Repeat CTH on 09/12 stable - Continue ASA 81 mg daily for now and can be stopped once anti-coagulation is started. - Will eventually need anticoagulation in setting of underlying Afib. In setting of IPH recommend starting anticoagulation 1 month post presentation (around 10/03) - SBP goal <160 - C/w Lipitor 40mg daily - C/w DVT ppx - Neurology will sign off. Please reach out with any questions or should the patient's clinical course change. Stroke Checklist: DVT Prophylaxis: receiving chemical and mechanical Antithrombotic Therapy: contraindicated, reason: pending repeat CTH Atrial Fibrillation or Flutter: yes - anticoagulation currently contraindicated, reason: IPH, will plan to start around 10/03/24 Statin: receiving - high intensity Rehab Therapy Plan: O.T., P.T., and Speech Patient Has Decision Making Capacity: yes Code Status: No Code SIGNOFF IMPRESSION AND RECOMMENDATIONS: Specialty Impression L temporal IPH likely 2/2 ischemic stroke with hemorrhagic transformation 2/2 Afib Recommended medication(s) at discharge Continue Lipitor 40 mg daily Continue ASA 81 mg daily on discharge but this can be stopped once anticoagulation is started. Recommend start date around 10/03/24 Recommended discharge testing (lab, imaging, etc.) N/A Other recommended care at discharge N/A Follow-up in [facility]ty [facility] Follow-up in 6 weeks (appointment requested) We will sign off at this time. Please call with any questions or should the patient's clinical course change. The oracle identity management consultant has placed the following orders for their recommendations: Recommended Follow-up The patient was examined and was discussed with Dr. Killian. Cosigned by Jessica Killian MD at 09/14/2024 2:25 PM EST Associated attestation - Jessica Killian MD - 09/14/2024 2:25 PM EST I saw and evaluated the patient 09/13. I have reviewed the resident/fellow physician note and agree. Pt with new onset Afib, confirmed by EKG. As such presentation is likely related to hemorrrhagic transformation of cardio-embolic strokes which will necessitate initiation of AC. Given IPH, would recommend waiting 4 weeks from time of stroke onset. Pt should be discharged on antiplatelet with Neurofollow-up 6-12 weeks after discharge. Once AC is started aspirin can be stopped if no other indication (to lessen further bleed risk). * Michelle Kaur MD - 09/12/2024 12:50 PM EST Images from the original note were not included. [facility] A465/A INTERVAL HISTORY: Seen and examined this morning at the bedside, awake alert and oriented to self only, stated lives home with and uses O2 at night time. Uses walker to ambulate. Later met daughter at the bedside, denied any Home O2 for the pt priro to adm, has recent concern of possibly some short term memory loss but no prior dx of dementia. Overnight BIOMEDICAL SERVICE ENGINEER was called for hypoxemia / somnolence. Pt was placed on HFNC and given lasix 20 and labetalol for elevated BP Objective Physical Exam Most Recent Vital Signs: BP: 161 mmHg/75 mmHg (09/12/24 1024) Pulse: 92 (09/12/24 1024) Resp: 20 (09/12/24 0652) Temp: 37.06 C (09/12/24 1024) Temp Summary: Temp Min: 36.6 C (97.9 F) Max: 37.4 C (99.3 F) SpO2: 97 % (09/12/24 1024) O2 flow rate: 8 L/MIN (09/12/24 1000) Supplemental O2 Delivery: Intermediate Nasal Cannula (09/12/24 1024) General: alert and oriented to person only, no acute distress. On HFNC later switched to NC, actinic keratosis HEENT: Head normocephalic. PERRLA. Moist mucous membranes. No scleral icterus. No cervical lymphadenopathy Lungs: +Fine crackles at bases. No accessory muscle use; on HFNC CV: Regular rate and rhythm. No murmur. No JVD. No edema Abdomen: Soft, non-tender and non-distended. No palpable masses; pimentel in place with clear/ yellow urine Extremities: No edema. Pulses intact Skin: No rashes or lesions. Warm to touch Neurologic: No focal neurological deficits. MACE; following commands Psychiatric: Cooperative. Appropriate mood and affect, confused Urethral Catheter Coude (Active) Number of days: 1 Peripheral Line Right;Lower Arm 20 Gauge (Active) Number of days: 5 Peripheral Line Upper;Right Arm 20 Gauge (Active) Number of days: 4 STUDIES: Encounter Orders Labs and other studies reviewed with pertinent findings noted below: Labs: Recent Results (from the past 6 hours) CBC Collection Time: 09/12/24 7:21 AM Result Value Ref Range WBC 8.02 4.00 - 10.80 K/uL RBC 3.78 4.50 - 5.25 M/uL HGB 10.7 (L) 14.0 - 16.8 g/dL HCT 33.5 (L) 40.0 - 48.4 % MCV 88.6 82.0 - 99.5 fL MCH 28.3 27.0 - 34.0 pg MCHC 31.9 32.0 - 36.0 g/dL RDW 13.7 11.5 - 15.5 % PLT 190 140 - 400 K/uL MPV 10.3 6.6 - 11.1 fL nRBCs 0 <=0 /100 WBCs BASIC METABOLIC PANEL Collection Time: 09/12/24 7:21 AM Result Value Ref Range BUN 15 6 - 20 mg/dL CREATININE 1.4 (H) 0.6 - 1.2 mg/dL EGFR 47 (L) >=60 mL/min SODIUM 140 135 - 146 mmol/L POTASSIUM 3.9 3.5 - 5.1 mmol/L CHLORIDE 106 98 - 107 mmol/L CO2 19 (L) 22 - 32 mmol/L ANION GAP 15 7 - 15 mmol/L GLUCOSE 156 (H) 70 - 120 mg/dL CALCIUM 8.4 8.4 - 10.2 mg/dL MAGNESIUM Collection Time: 09/12/24 7:21 AM Result Value Ref Range Magnesium 2.1 1.5 - 2.6 mg/dL PHOSPHORUS Collection Time: 09/12/24 7:21 AM Result Value Ref Range Phosphorus 3.8 2.5 - 4.8 mg/dL GLUCOSE METER, POINT OF CARE Collection Time: 09/12/24 8:08 AM Result Value Ref Range Glucose - POCT 148 (H) 70 - 120 mg/dL GLUCOSE METER, POINT OF CARE Collection Time: 09/12/24 10:23 AM Result Value Ref Range Glucose - POCT 156 (H) 70 - 120 mg/dL Imaging: CT HEAD/BRAIN WO CONTRAST Final Result EXAM: CT HEAD/BRAIN WO CONTRAST-09/12/2024 HISTORY: 89 y/o M, follow-up IPH prior to starting AP TECHNIQUE: CT scan of the head performed without intravenous contrast. COMPARISON: CT head and MR brain 09/06/2024. 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 Other scattered small infarcts of similar age (including at the right frontal operculum) better demonstrated on prior MR brain 09/06/2024. Acute intraparenchymal hematoma in the left temporal lobe is unchanged in size and configuration, measuring 2.8 x 4.3 x 3.2 cm. Similar surrounding edema and mild mass effect with effacement of sulci, partial effacement of the left sylvian fissure, and effacement of the left lateral ventricle. No substantial midline shift and no herniation. Encephalomalacia in the right more than left occipital lobes and right cerebellar hemisphere, compatible with chronic infarcts. Mild patchy hypoattenuation in the periventricular white matter, most suggestive of chronic microvascular ischemic changes. Global cerebral volume loss. No discernible extra-axial fluid collections. No hydrocephalus. Basal cisterns are patent. Vascular calcification at the skull base. Bilateral lens replacements. Scattered mild mucosal thickening in the paranasal sinuses with fluid in the left frontal sinus. Mastoid air cells are well aerated. The calvarium is intact. IMPRESSION IMPRESSION: 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 The hematoma in the left temporal lobe has not significantly changed in size and there is no evidence of new intracranial hemorrhage. Similar edema and mild mass effect without midline shift or herniation. Other scattered subacute ischemic infarcts are better demonstrated on prior MR brain. 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 XR CHEST 1 VIEW Final Result EXAM XR CHEST 1 VIEW-09/11/2024 11:12 pm HISTORY SOB and increase O2 supply COMPARISON XR CHEST 1 VIEW, ACC: [id number], dated 2024-09-10 03:37:51; XR CHEST 1 VIEW, ACC: [id number], dated 2024-09-08 11:36:42 TECHNIQUE Frontal chest radiograph obtained. FINDINGS Stable cardiomediastinal. A loop recorder projected over the left chest. Stable pulmonary opacities. Pleural effusions and basilar atelectasis. No pneumothorax. Degenerative osseous changes. IMPRESSION IMPRESSION 1. No significant interval change. XR CHEST 1 VIEW Final Result EXAM XR CHEST 1 VIEW-09/10/2024 3:42 am HISTORY short of breath COMPARISON 09/08/24 TECHNIQUE Single image FINDINGS Loop recorder projects over the left cardiac silhouette. Stable enlargement of the cardiomediastinal silhouette. Atherosclerotic calcification of the thoracic aorta. Bibasilar opacities with small bilateral pleural effusions, unchanged. Diffuse increased pulmonary vascular markings, suggestive of pulmonary edema. No pneumothorax. Degenerative osseous changes. IMPRESSION IMPRESSION No significant interval change in the chest XR CHEST 1 VIEW Final Result EXAM XR CHEST 1 VIEW - 09/08/2024 12:04 pm HISTORY flash pulm edema likely COMPARISON No Comparison. TECHNIQUE Frontal view of the chest. FINDINGS Support apparatus: Loop recorder Diffuse ground-glass opacities and prominent interstitial markings. Likely small pleural effusions. No sizable pneumothorax. Prominent cardiac silhouette. Atherosclerosis. Degenerative osseous changes. IMPRESSION IMPRESSION Pulmonary edema. VASC ANKLE BRACHIAL INDICES WITHOUT PPG (PAD) Final Result VASCULAR LAB RESULTS DATE OF EXAMINATION: 09/06/24 INDICATION: asymetrical pulse exam with cold LLE ANKLE BRACHIAL INDEX OF THE LOWER EXTREMITIES Immediately before proceeding with the vascular lab procedure reported below, the identity of the patient, the correct exam and the correct procedural site were identified. Continuous wave doppler and appropriate size pressure cuffs were utilized during the examination. Findings: The right brachial artery blood pressures 136 mmHg respectively. On the right, the posterior tibial artery waveform is triphasic and has an amplitude which is excellent. . The right dorsalis pedis artery waveform is triphasic and has an amplitude which is excellent. The right peroneal artery waveform is biphasic and has an amplitude which is good. The tibial pressures range from 156 mmHg to 168 mmHg. On the left, the posterior tibial artery waveform is biphasic and has an amplitude which is decreased. . The left dorsalis pedis artery waveform is biphasic and has an amplitude which is nearly flat . . The tibial pressures are 70 mmHg IMPRESSION: JENN at rest is 1.24 on the right and 0.51 on the left. 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 Lower extremity Doppler Evaluation is normal at rest with no evidence of significant arterial occlusive disease. For the left lower extremity: Lower extremity Doppler Evaluation is consistent with moderate arterial occlusive disease. CT HEAD/BRAIN WO CONTRAST Final Result EXAM: CT HEAD/BRAIN WO CONTRAST - 09/06/2024 HISTORY: Abnormal neurologic exam, assess for evolution of bleed TECHNIQUE: CT scan of the head was performed without intravenous contrast. COMPARISON: MRI brain dated 09/06/2024, CT head dated 09/05/2024. 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 No evidence of significant midline shift. Additional scattered foci of bilateral cerebral hemispheric peripheral late acute/early subacute infarcts, potentially embolic and better appreciated on prior MRI brain dated 09/06/2024. Generalized volume loss is appreciated. Bilateral, right greater than left, occipital encephalomalacia and right cerebellar encephalomalacia are again noted, consistent with prior infarcts. Patchy hypodensities in the periventricular and deep cerebral white matter are nonspecific, but most commonly represent chronic microvascular ischemic changes. Intracranial vascular calcifications are noted. There is no evidence of hydrocephalus. 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 Additional mild paranasal mucosal thickening is noted. The mastoid air cells are clear. The calvarium is intact. IMPRESSION IMPRESSION: 1. 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 No evidence of significant midline shift. 2. Additional scattered foci of bilateral cerebral hemispheric peripheral late acute/early subacute infarcts, potentially embolic and better appreciated on prior MRI brain dated 09/06/2024. MRI BRAIN W WO CONTRAST Final Result EXAM MRI BRAIN WITH AND WITHOUT CONTRAST - 09/06/2024 HISTORY 89 y/o M known intraparenchymal hematoma, evaluate for underlying lesion. TECHNIQUE Multiplanar, multisequence magnetic resonance imaging of the brain was performed before and after the administration of intravenous contrast. COMPARISON CT head/brain 09/05/2024 and CTA head/neck 09/05/2024 FINDINGS Evaluation is limited by patient motion artifact. Expected evolution of the left temporal lobe intraparenchymal hematoma which measures approximately 3.9 x 2.6 cm. Surrounding vasogenic edema results in deformation of the overlying sulci and left lateral ventricle. No significant midline shift. No abnormal enhancement or other signal abnormalities to suggest an underlying lesion. There is a overlying dural thickening and enhancement, likely reactive. A few smaller adjacent foci of susceptibility artifact within the left parietal lobe associated with diffusion restriction likely represent late subacute infarcts with petechial type hemorrhages. There are additional scattered foci of restricted diffusion within the bilateral temporal, parietal and left frontal cortex/subcortical white-matter with mild associated T2/FLAIR signal hyperintensity suggestive of embolic late acute/early subacute infarcts. Global brain volume loss is appreciated. Encephalomalacia within the right medial occipital pole and right cerebellar hemisphere are likely the sequale of remote infarct. There is mild ex vacuo dilation of the right lateral ventricle posterior horn. Additional scattered T2/FLAIR signal hyperintensities within the deep cerebral and periventricular white matter are nonspecific but most commonly associated with chronic microvascular ischemic disease. Surgically replaced [place] ocular lenses. Opacification of the frontal sinus. Trace inflammatory paranasal sinus mucosal thickening elsewhere. Mucous retention cyst within the posterior left nasal cavity along the septum. Calvarium and visualized craniofacial soft tissues are unremarkable. IMPRESSION IMPRESSION Evolving left temporal lobe intraparenchymal hematoma with surrounding edema and stable (overall mild) mass-effect, favoring hemorraghic transformation/secondary hematoma within a recent left MCA territory infarct. An underlying lesion such as cerebral amyloid angiopathy, AVM or mass lesion are not entirely excluded. Recommend follow-up in 6 weeks after further hematoma resolution. Additional scattered foci of bilateral cerebral hemispheric peripheral late acute/early subacute infarcts, possibly cardioembolic given distribution. I have personally reviewed this examination and agree with the resident/fellow physician's interpretation. CTA HEAD/CTA NECK Final Result EXAM CTA HEAD/CTA NECK - 09/05/2024 10:06 pm HISTORY stroke COMPARISON CT HEAD_BRAIN WO CONTRAST, ACC: [id number], dated 2024-09-05 14:24:17; RADIOLOGY EXAM - CT (IMAGES ONLY, NO REPORT), ACC: [id number], dated 2024-09-05 11:06:25 TECHNIQUE Axial images obtained through the head without contrast. CT angiography was performed using thin helical acquisition with dynamic bolus contrast injection of the head and neck, and 2-D and 3-D reconstructed images are provided. FINDINGS CT HEAD WITHOUT CONTRAST: A grossly similar 4.2 x 2.7 cm intraparenchymal hemorrhage is again noted in the left temporal lobe. There is similar surrounding edema in the left temporal lobe and inferior parietal level, suggestive of infarct with hemorrhagic transformation. There is similar mild effacement of the left lateral ventricle. No definite abnormal enhancement or artery venous malformation is seen. Similar chronic infarcts involving the bilateral occipital lobes and bilateral cerebellar hemispheres are again seen. There is global cerebral volume loss. There is no midline or downward shift. No acute osseous abnormality detected. Visualized paranasal sinuses and mastoid air cells are grossly clear. CTA HEAD AND NECK: Arch and mediastinum: Atherosclerotic disease is seen involving the aortic arch and origins of the great vessels without significant luminal stenosis. The aortic arch is of normal caliber and there is normal anatomy of the great vessel origins. Multiple prominent mediastinal lymph nodes are seen. Anterior circulation: On the right side the common carotid artery is of normal caliber. Atherosclerotic disease is seen on the right carotid bifurcation without significant internal carotid artery stenosis. The intracranial segments of the right internal carotid artery show atherosclerotic disease with resultant [id number] luminal stenosis of the right cavernous internal carotid artery. The anterior and middle cerebral arteries are patent, and show no significant stenosis. On the left side, the common carotid artery is of normal caliber. Atherosclerotic disease is seen involving the left carotid bifurcation without significant internal carotid artery stenosis. The intracranial segments of the left internal carotid artery show atherosclerotic disease with resultant mild luminal stenosis of the left cavernous internal carotid artery. The anterior and middle cerebral arteries are patent, and show no significant stenosis. Posterior circulation: There is nonvisualization of the right vertebral artery from its origin and dense atherosclerotic plaque at the origin of the right vertebral artery. Atherosclerotic disease is seen involving the origin of the left vertebral artery with resultant moderate luminal stenosis. The remainder of the left vertebral artery appears patent. The basilar artery is of normal caliber. Both posterior cerebral arteries arise from the basilar tip and are of normal caliber. There is satisfactory enhancement of the dural venous sinuses superficial and deep systems. There is no evidence of aneurysm, vascular malformation. Additional findings: Multilevel degenerate changes are seen in the cervical spine. No acute osseous lesion is detected. No gross mass or adenopathy is detected in the neck. Bilateral small pleural effusions are seen in the visualized upper chest. The lung apices show no suspicious nodules. IMPRESSION IMPRESSION 1. A grossly similar intraparenchymal hemorrhage in the left temporal lobe with surrounding edema, suggestive of NC territory infarct with hemorrhagic transformation. No definite abnormal enhancement or arteriovenous malformation. 2. 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 If there is clinical concern for dissection, consider MR angiography of the neck for further evaluation 3. 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 4. Atherosclerotic disease involving the cavernous internal carotid arteries with resultant [id number] 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 5. Multiple prominent mediastinal lymph nodes, which could represent reactive lymph nodes. RADIOLOGY EXAM - CT (IMAGES ONLY, NO REPORT) Final Result This is an imaging study not interpreted or resulted by a [facility] or [facility] contracted radiologist. CT HEAD/BRAIN WO CONTRAST Final Result EXAM: CT HEAD WITHOUT CONTRAST - 09/05/2024 HISTORY: 4.1 x2.8 cm intraparenchymal hematoma in L temporal lobe seen at 0148. Assess progression TECHNIQUE: CT scan of the head was performed without intravenous contrast. COMPARISON: CT head dated 09/05/2024 FINDINGS: Left temporal lobe intraparenchymal hematoma is stable in size from prior examination, measuring approximately 4.1 x 2.7 cm, with mild adjacent subarachnoid hemorrhage. Cytotoxic edema in the adjacent temporal lobe and inferior parietal lobule, consistent with ischemic infarction. Edema and mass effect are stable. Bilateral, right greater than left, occipital encephalomalacia and right cerebellar encephalomalacia, consistent with prior infarcts. No evidence of hydrocephalus. Complete opacification of the left frontal sinus. The mastoid air cells are clear. The calvarium is intact. IMPRESSION IMPRESSION: Suspected left MCA-territory ischemic infarction with stable left temporal hemorrhagic conversion and mild local mass effect. MRI would be of benefit for further evaluation. A request to the energy assistant was placed 09/05/2024, 3:02 pm to notify the ordering clinician that the report is available in [facility] for review. I have personally reviewed this examination and agree with the resident/fellow physician's interpretation. 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 * 89 year old male known to have HTN, type 2 diabetes mellitus not on rat exterminator insulin with CKD stage 3b, DLD, ND s/p PCI X 5 with stents placed (last ND 08/2022 complicated by 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), BPH who initially presented to [facility] from assisted living facility for change in mentation and agitation on 09/05 found to have a L MCA infarct with hemorrhagic conversion. Patient is neurologically intact and has periods of lucency. Hospital course complicated by severe hospital/ICU delirium, new onset HFrEF, flash pulmonary edema, and urinary retention. Transferred to Neurology Service on 09/11. Transferred to Medicine on 09/12 due to increase in O2 requirement in setting of pulmonary edema and HFrEF. Updated daughter at the bedside Acute encephalopathy, likely secondary to below: stable Intraparenchymal hemorrhage of brain Delirium due to general medical condition Neuro on board, rreviewed the [facility] 09/12 and suggested to start ASA 81 Cw Lipitor 40 daily Zio patch on dc Neuro checks Q4 Cw keppra 500 BID Cw SAND BOBBER citalopram Pt was started on valproate 250 q6 by neuro, reached out to confirm: suggested to keep as it is andpossibly wean down tomorrow Delirium precautions; light on during the day, maintain hearing aids, eyeglasses, reorient during the day, physical activity, encourage OOB Sleep protocol CVM at bedside Acute hypoxic respiratory failure: likely secondary to below Acute on chronic HF reduced EF CAD Hx ND s/p PCI with 5 stents HTN Weaned down from HFNC to NC this morning, cw supplemental O2 to maintain SPO2 more than 88% Resp driven protocol, spirometry and flutter valve therapy Duonebs q4 prn Fu cards recs Monitor on tele Started lasix 40 iv bid TTE 09/06 showed an EF 30-34%, no evidence of thrombus, no comment on PFO Increased SAND BOBBER lisinopril to 10 mg daily Started on cardizem 60 mg Q6H in ICU?? Reached out to cardio to confirm and pt already has reduced EF, if ok to switch to SAND BOBBER metoprolol for now and to keep lisinopril at 10 to allow room for diuretics, waiting to hear back PRN labetalol 10 mg for SBP > 160 mmHg Type 2 DM not on rat exterminator insulin with CKD stage 3b FS ACHS Recent HbA1c 6.9 Cw SSI Chronic anemia No active bleed Fu iron studies NAGMA Likely secondary to CKD Started low dose bicarbonate Daily bmp PAD No palpable DP pulse in LLE but able to achieve doppler signal on, PT present -JENN 09/06 was 0.5 on LLE -Vascular surgery outpt eval as patient cannot be on any antiplt/coagulant for at least 4 weeks, holding ASA for at least a week BPH: cw finasteride and flomax PHARMACOLOGIC VTE PROPHYLAXIS: hEParin CODE STATUS: No Code EXPECTED DISCHARGE DATE: 09/16/2024 I spent a total of 53 minutes coordinating, documenting, and providing care for this patient excluding time spent in the performance of separately billed services or time spent by another provider/QHP. * Cathy Mcneal DO - 09/12/2024 7:03 AM EST STROKE PROGRESS NOTE - Stroke / Vascular Neurology [facility] [place]-[address] [id number] Name: Goran Hester Location: [facility] A465/A Date: 09/12/2024 Time: 5:25 PM SUBJECTIVE: Goran Hester is a 89 year old patient initially seen for left temporal IPH 2/2 suspected hemorrhagic transformation. Patient was transferred from ICU to neuro floors on 09/11. In the evening on 09/11, rapid response called for agitation followed by progressive SOB requiring HFNC. Patient was transferred to medicine service following. Changes since last visit: Patient currently on neurology floor, however admitted to medicine service amidst events of last night. This morning patient was on HFNC on initial evaluation with NIHSS of 0. On repeat evaluation, he was still sating well but on nasal cannula after he had been given his morning meds. During this evaluation he was drowsy and mildly aphasic. CTH completed shortly before the second evaluation demonstrated hemorrhage stability. Pertinent past medical history: No past medical history on file. Pertinent past social history: Social History Tobacco Use Smoking status: Former Types: Cigarettes Smokeless tobacco: Not on file Substance Use Topics Alcohol use: Never Drug use: Not on file Current Medications: Note that completed medications (per the MAR) continue to display for 24 hours. Ordered medicationsto be given in the future also display. Current Facility-Administered Medications Medication Dose Route Frequency Provider aspirin chew tab 81 mg 81 mg Oral Daily(AM) Michelle Kaur MD Furosemide (Lasix) inj 40 mg 40 mg IV Push BID (0900,1600) Michelle Kaur MD sodium bicarbonate tab 325 mg 325 mg Oral TID(AM/NOON/HS) Michelle Kaur MD Acetaminophen (Tylenol) tab 650 mg 650 mg Oral Q6H PRN Alfreda Thakkar CRNP dilTIAZem (Cardizem) immediate release tab 60 mg 60 mg Oral Q6H Alfreda Thakkar CRNP insulin aspart (NovoLOG) inj Subcutaneous With Meals and HS Alfreda Thakkar CRNP Lisinopril (Prinivil) tab 10 mg 10 mg Oral Daily(AM) Alfreda Thakkar CRNP tamsulosin (Flomax) cap 0.4 mg 0.4 mg Oral Daily(AM) Alfreda Thakkar CRNP citalopram (Celexa) oral soln 10 mg 10 mg Oral Daily(AM) Alfreda Thakkar CRNP Finasteride (Proscar) tab 5 mg 5 mg Oral Daily(AM) Alfreda Thakkar CRNP melatonin tab 6 mg 6 mg Oral HS Alfreda Thakkar CRNP Valproate Sodium (Depacon) 250 mg in NSS 50 mL ivpb 250 mg IV Piggyback Q6H Alfreda Thakkar CRNP Docusate Sodium (Colace) oral liquid 100 mg 100 mg Oral BID(AM/PM) Alfreda Thakkar CRNP Polyethylene Glycol 3350 (Miralax) oral powder 17 g 1 Packet Oral Daily(AM) Alfreda Thakkar CRNP senna (Senokot) 1 Tablet 1 Tablet Oral Daily(AM) Alfreda Thakkar CRNP dextrose 50% inj 25 mL 25 mL IV Push PRN Alfreda Thakkar CRNP dextrose 50% inj 50 mL 50 mL IV Push PRN Alfreda Thakkar CRNP glucagon (Glucagen) inj 1 mg 1 mg Intramuscular PRN Alfreda Thakkar CRNP Glucose (Glutose 15) 40 % gel 15 g of glucose 15 g of glucose Oral PRN Alfreda Thakkar CRNP Glucose (Glutose 15) 40 % gel 30 g of glucose 30 g of glucose Oral PRN Alfreda Thakkar CRNP glucose chew tab 16 g 16 g Oral PRN Alfreda Thakkar CRNP oxygen GAS Inhalation Oxygen Alfreda Thakkar CRNP albuterol-ipratropium (Duoneb) inhalation solution 3 mL 3 mL Nebulizer Q4H PRN Alfreda Thakkar CRNP Benzonatate (Tessalon Perles) cap 100 mg 100 mg Oral Q8H PRN Alfreda Thakkar CRNP dorzolamide (Trusopt Ocumeter Plus) 2 % ophthalmic solution 1 Drop 1 Drop Both eyes BID(AM/PM) Alfreda Thakkar CRNP labetalol (Trandate) inj 10 mg 10 mg Intravenous Q1H PRN Alfreda Thakkar CRNP cycloSPORINE (Restasis) 0.05 % ophthalmic emulsion 1 Drop 1 Drop Both eyes BID(AM/PM) Alfreda Thakkar CRNP hEParin inj 5,000 Units 5,000 Units Subcutaneous Q8H Alfreda Thakkar CRNP polyvinyl alcohol-povidone PF (Refresh) ophthalmic solution 1 Drop 1 Drop Both eyes Daily 1900 Alfreda Thakkar CRNP sodium chloride 0.9 % flush peripheral lucy 3 mL 3 mL IV Push Q8H Alfreda Thakkar CRNP OBJECTIVE: Physical Examination: Most Recent Vital Signs: BP: 142 mmHg/73 mmHg (09/12/241516) Pulse: 87 (09/12/24 151) Resp: 20 (09/12/24 151) Temp: 36.72 C (09/12/241516) Temp Summary: Temp Min: 36.6 C (97.9 F) Max: 37.4 C (99.3 F) SpO2: 98 % (09/12/24 1600) O2 flow rate: 6 L/MIN (09/12/24 1600) Supplemental O2 Delivery: Intermediate Nasal Cannula (09/12/24 1600) Weight: 98.9 kg (218 lb 1.6 oz) (09/12/24 0230) Height: 175.3 cm (5' 9") (09/05/24 1400) Body mass index is 32.21 kg/m. Vital Signs Last 24 Hours: Systolic BP: Most Recent Systolic BP Av.5 mmHg Min: 142 mmHg Max: 189 mmHg Temperature: Most Recent Temperature Av C Min: 36.61 C Max: 37.39 C Pulse: Pulse Av.1 Min: 71 Max: 110 Respirations: Resp Av.3 Min: 18 Max: 22 SpO2: SpO2 Av.8 % Min: 85 % Max: 100 % General Examination: Constitutional: Appearance ill appearing and in bed Head/face, ears, nose, throat: normocephalic, atraumatic Cardiovascular: regular rate Psychiatric: not agitated Neurologic Examination: Ophthalmoscopic: deferred due to inadequate dilation Mental Status and Orientation: drowsy and oriented to person, place, and time on initial evaluation Memory: poor Attention: diminished Knowledge:diminished Language: fluctuating aphasia based on wakefulness Speech: no dysarthria Cranial Nerves: CN 2 - no visual defect on confrontation CN 3, 4, 6 - extra-ocular movements intact and no nystagmus CN 5 - facial sensation intact V1-3 CN 7 - no facial asymmetry CN 8 - reduced hearing BL CN 9, 10 - cough intact CN 11 - shoulder shrug full strength CN 12 - tongue protrudes midline Sensory: intact to light touch Coordination: intact with finger to nose testing Gait: deferred due to fall risk Muscle Tone: did not assess Muscle exam: no drift in any extremities Reflexes: did not assess [employer] [place] [employer] Stroke Scale: 1A. LOC: 1 1B. Question: 1 1C. Commands: 0 2. Gaze: 0 3. Visual Suarez: 0 4. Facial Palsy: 0 5A. Arm Left: 0 5B. Arm Right: 0 6A. Leg Left: 0 6B. Leg Right: 0 7. Ataxia: 0 8. Sensory: 0 9. Aphasia: 1, fluctuant 10. Dysarthria: 0 11. Extinction: 0 Total: 3 I have reviewed Radiologic Studies and noted significant findings as follows: CTH 09/12/24 IMPRESSION: 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 The hematoma in the left temporal lobe has not significantly changed in size and there is no evidence of newintracranial hemorrhage. Similar edema and mild mass effect without midline shift or herniation. CTH 09/06/24 IMPRESSION: 1. 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 No evidence of significant midline shift. 2. Additional scattered foci of bilateral cerebral hemispheric peripheral late acute/early subacuteinfarcts, potentially embolic and better appreciated on prior MRI brain dated 09/06/2024 MRI brain w/ and w/o contrast 09/06/24 IMPRESSION: Evolving left temporal lobe intraparenchymal hematoma with surrounding edema and stable (overall mild) mass-effect, favoring hemorraghic transformation/secondary hematoma within a recent left MCA territory infarct. An underlying lesion such as cerebral amyloid angiopathy, AVM or mass lesion are notentirely excluded. Recommend follow-up in 6 weeks after further hematoma resolution. Additional scattered foci of bilateral cerebral hemispheric peripheral late acute/early subacute infarcts, possibly cardioembolic given distribution I have reviewed the following Diagnostic Tests and noted significant findings as follows: TTE w/o bubble study 09/06/24 The examination is adequate to evaluate the referral indication. The qualitative LV ejection fraction is 30-34% (moderately reduced). There is diffuse hypokinesis to akinesis. There is no left ventricular mural thrombus. No mural thrombus was identified but the apical wall motion defect could serve as a nidus for thromboembolism. The aortic root and proximal ascending aorta are mildly enlarged LABS: Labs reviewed as indicated below: Lab results within last 7 days (see chart for full results) Units 09/12/24 0721 09/11/24 0804 09/10/24 0603 HGB g/dL 10.7* 10.8* 11.4* HCT % 33.5* 32.7* 35.3* WBC K/uL 8.02 7.87 7.49 PLT K/uL 190 186 161 Lab results within last 7 days (see chart for full results) Units 09/12/24 0721 09/11/24 0644 09/10/24 0603 SODIUM mmol/L 140 140 142 POTASSIUM mmol/L 3.9 3.8 3.6 CHLORIDE mmol/L 106 106 108* CO2 mmol/L 19* 17* 20* BUN mg/dL 15 15 16 CREATININE mg/dL 1.4* 1.3* 1.4* LDL 42 HbA1c 6.9% IMPRESSION: Patient is a 89yo M with PMHx of HTN, CAD, hx of ND s/p stenting that presented with L temporal IPHafter [facility] Given MRI findings of surrounding ischemic burden, mostlikely etiology of bleed is ischemic stroke with hemorrhagic transformation. Appropriate to continue patient on telemetry and, if unrevealing, patient should be discharged with Zio to eval for afib. RECOMMENDATIONS/PLAN: L temporal IPH - Repeat CTH stable - Okay to start ASA 81mg daily - SBP goal <160 - C/w Lipitor 40mg daily - C/w DVT ppx - ZioPatch at discharge to eval for afib Stroke Checklist: DVT Prophylaxis: receiving chemical and mechanical Antithrombotic Therapy: contraindicated, reason: pending repeat CTH Atrial Fibrillation or Flutter: no Statin: please order the following statin or document contraindication to: Lipitor 40 Stroke Education: could not be provided due to: patient has altered mental status and no family at bedside Rehab Therapy Plan: O.T., P.T., and Speech Patient Has Decision Making Capacity: no, reason: aphasia and AMS Code Status: No Code The patient was examined and was discussed with Dr. Killian. Cosigned by Jessica Killian MD at 09/12/2024 5:59 PM EST Associated attestation - Jessica Killian MD - 09/12/2024 5:59 PM EST I saw and evaluated the patient today. I have reviewed the resident/fellow physician note and agree. CT Head stable this AM. Clear for aspirin. Mental status continues to fluctuate but seems unrelatedto worsening stroke/bleed and more likely relates to delirium. * Alfreda Thakkar CRNP - 09/12/2024 12:14 AM EST TRANSFER RECEIVING NOTE [facility]-[address] [address] Name: Goran Hester Current Location: [facility] A465/A HANDOFF COMMUNICATION: Sending patient service: Neurology Accepting service: Medicine Admit 2 Sending attending aware of patient and transfer: yes Receiving attending aware of patient and transfer: yes Name of receiving attending provider: Dr. Harper Recinos Patient care is being assumed by receiving service: 12:18 AM in current location Reason for transfer: Increase in O2 requirement in the setting of pulmonary edema and heart failure PATIENT DESCRIPTION/ EVENTS OF NOTE: Patient is a 89 year old male with PMHx significant for HTN, T2DM, DLD, ND s/p PCI X 5 with stents placed (last ND 08/2022 complicated by 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)who initially presented to [facility] from assisted living facility for change in mentation and agitation on 09/05 found to have a L MCA infarct with hemorrhagic conversion. Patient isneurologically intact and has periods of lucency. Hospital course complicated by severe hospital/ICU delirium, new onset HFrEF, flash pulmonary edema, and urinary retention. Transferred to Neurology Service on 09/11. Transferred to Medicine on 09/12 due to increase in O2 requirement in setting of pulmonary edema and HFrEF. Patient seen at bedside. He is sleeping, awakes to verbal stimulation. SpO2 stable on HFNC 60%/ 50L. No respiratory distress. Oriented to self only. Follows all commands appropriately, MACE. CVM at bedside. Patient denies SOB, chest pain, abdominal pain, N/V. Pimentel in place with clear/ yellow urine. All other systems reviewed and otherwise negative unless mentioned above TRANSFER MEDICATION RECONCILIATION COMPLETED? yes CONSTITUTIONAL DATA: BP: 172 mmHg/75 mmHg (09/11/242343) Pulse: 78 (09/11/242328) Resp: 20 (09/11/242328) Temp: 36.61 C (09/11/242204) Temp Summary: Temp Min: 36.6 C (97.9 F) Max: 38 C (100.4 F) SpO2: 99 % (09/11/242328) O2 flow rate: 50 L/MIN (09/11/242328) Supplemental O2 Delivery: HFNC (09/11/242328) PHYSICAL EXAM: General: alert and oriented to person only, no acute distress HEENT: Head normocephalic. PERRLA. Moist mucous membranes. No scleral icterus. No cervical lymphadenopathy Lungs: +Fine crackles at bases. No accessory muscle use; on HFNC CV: Regular rate and rhythm. No murmur. No JVD. No edema Abdomen: Soft, non-tender and non-distended. No palpable masses; pimentel in place with clear/ yellow urine Extremities: No edema. Pulses intact Skin: No rashes or lesions. Warm to touch Neurologic: No focal neurological deficits. MACE; following commands Psychiatric: Cooperative. Appropriate mood and affect LABORATORY VALUES: reviewed RADIOGRAPHIC STUDIES: reviewed CXR 09/11/2024 FINDINGS Stable cardiomediastinal. A loop recorder projected over the left chest. Stable pulmonary opacities. Pleural effusions and basilar atelectasis. No pneumothorax. Degenerative osseous changes. IMPRESSION 1. No significant interval change. Principal Problem: Intraparenchymal hemorrhage of brain (HCC) (POA: Yes) Active Problems: Stroke-like symptoms (POA: Unknown) Ac isch multi vasc territories stroke (HCC) (POA: Unknown) Systolic heart failure (HCC) (POA: Yes) Dyslipidemia, goal LDL below 70 (POA: Yes) Delirium due to multiple etiologies, acute, hyperactive (POA: Unknown) Encephalopathy acute (POA: Unknown) History of CAD (coronary artery disease) (POA: Unknown) POA = Present On Admission ASSESSMENT and PLAN: Intraparenchymal hemorrhage of brain Stroke-like symptoms Delirium -Neurology following; appreciate recs -Maintain SBP < 160 mmHg -Repeat CTH in AM, if stable start ASA 81 mg on 09/12 -Lipitor 40 mg daily -Ok for DVT ppx -Zio patch at discharge -Q4 neuro checks -Started on valporic acid 250 mg BID on 09/08, increased to Q6 on 09/10 for agitation -Keppra 500 mg BID -Continue SAND BOBBER citalopram -Delirium precautions; light on during the day, maintain hearing aids, eyeglasses, reorient during the day, physical activity, encourage OOB -Sleep protocol -CVM at bedside Acute hypoxic respiratory failure Pulmonary edema HFeEF CAD Hx ND s/p PCI with 5 stents HTN -On HFNC, wean as able -Has been receiving lasix PRN; continue to assess fluid/ volume status and administer as needed -Respiratory driven protocol -Duonebs Q4 PRN -TTE 09/06 showed an EF 30-34%, no evidence of thrombus, no comment on PFO -Increased SAND BOBBER lisinopril to 10 mg daily -Recommend Cardiology consult in AM for further recs/ optimization -Started on cardizem 60 mg Q6H in ICU -Holding SAND BOBBER amlodipine -PRN labetalol 10 mg for SBP > 160 mmHg -No palpable DP pulse in LLE but able to achieve doppler signal on, PT present -JENN 09/06 was 0.5 on LLE -Vascular surgery outpt eval as patient cannot be on any antiplt/coagulant for at least 4 weeks, holding ASA for at least a week Rest of care per daily progress note GLOBAL ISSUES: HOB Elevation: greater than 30 degress Nutrition: NPO except medications 2/2 respiratory status DVT Prophylaxis: chemoprophylaxis with pneumatic compression devices Stress Ulcer Prophylaxis: not indicated Glycemic Control: controlled - protocol Pimentel: reviewed and needed Disposition: transfer to floor Patient's decisional capacity: does not have capacity to make decisions Patient to be discussed with Dr. Harper Recinos I spent a total of 60 minutes coordinating, documenting, and providing care for this patient excluding time spent in the performance of separately billed services or time spent by another provider/QHP. Cosigned by Harper Recinos MD at 09/12/2024 7:16 AM EST * Patrick Menchaca RN - 09/11/2024 11:00 PM EST Nursing Critical Care Response Note [facility]-[address] [address] Name: Goran Hester Date: 09/12/2024 Time: 12:10 AM Event Location: [facility], Unit Area: AP4 In the role of the Critical Response Nurse I was involved in the care of this patient. Method of notification to the critical care response nurse: Rapid response team notification Rounding on this unit Reason for notification or follow up: Respiratory distress Observations/Interventions/Assessment: When on unit sewrive ordered a ABG and recharger asked me to draw it. ABG was drawn and sent to lab. [employer] called for resp distress pt desaturated on 3 L NC VS HR 92 RR 32 SpO2 92 on 5 LNC BP 189/87 pt lethargic (Ativan 1 mg IVP was given at 0) Service at bedside ordered a CXR and HFNC. Resp therapy placed pt on HFNC Service consulted [facility]. [facility] med at bedside. Lasix 20mg IVP ordered and given by primary RN . Decision made to keep pt on unit. Will continue to monitor pt Outcome/Plan CRN can be contacted via [place] Text: [facility] Critical Response Nurse. * Cathy Mcneal DO - 09/11/2024 3:32 PM EST TRANSFER RECEIVING NOTE - Neurology [address] [address] Name: Goran Hester Current Location: [facility] A4/A HANDOFF COMMUNICATION: Sending patient service: ANTOINETTE Lira Accepting service: Neurology Stroke Sending attending aware of patient and transfer: yes Receiving attending aware of patient and transfer: yes Name of receiving attending provider: Sagar Ohara Patient care is being assumed by receiving service: 3:35 PM in current location Reason for transfer: downgrade from ICU SUBJECTIVE: Patient is an 89yo M with PMHx of HTN, T2DM, DLD, ND s/p 5 stents, stroke that presented with AMS after being found down in his assisted living facility. He was found to have a L temporal IPH. Based on the presence of surrounding ischemic changes on imaging, high suspicion that the bleed is a result of hemorrhagic transformation after ischemic stroke in the setting of uncontrolled blood pressure.Patient had an extended ICU stay due to flash pulmonary edema that resolved on 09/08 following diuresis and bipap. 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 He also suffered from severe hyperactive delirium requiring precedex gtt and restraints. He was started on Depakote 250mg q6h which has stabilized his mood and behaviors. Patient is leaving the ICU with a pimentel catheter due to new onset urinary retention. From an [facility] standpoint, he has been stable. The ICU adjusted his home blood pressure medication regimen to kepe his pressures below 160 systolic. He did require a nicardipine infusion in the process of stabilizing his pressures. The nicardipine was stopped on 08/10 and hehas needed about five doses of labetalol since. On evaluation of the patient today, he was very talkative, albeit slow. His son was at bedside. Hadan extensive conversation reiterating to the patient that the next step is moving to the neurology floor, then going to rehab, then returning to assisted living at [facility] to live with his again. Patient was often disoriented however was eventually able to understand. 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 CURRENT HOSPITAL MEDICATIONS: Note that completed medications (per the MAR) continue to display for 24 hours. Ordered medicationsto be given in the future also display. Current Facility-Administered Medications Medication Dose Route Frequency Provider Acetaminophen (Tylenol) tab 650 mg 650 mg Oral Q6H PRN Cathy Mcneal DO dilTIAZem (Cardizem) immediate release tab 60 mg 60 mg Oral Q6H Cathy Mcneal DO insulin aspart (NovoLOG) inj Subcutaneous With Meals and HS Cathy Mcneal DO [START ON 09/12/2024] Lisinopril (Prinivil) tab 10 mg 10 mg Oral Daily(AM) Cathy Mcneal DO tamsulosin (Flomax) cap 0.4 mg 0.4 mg Oral Daily(AM) Cathy Mcneal DO citalopram (Celexa) oral soln 10 mg 10 mg Oral Daily(AM) Cathy Mcneal DO Finasteride (Proscar) tab 5 mg 5 mg Oral Daily(AM) Cathy Mcneal DO melatonin tab 6 mg 6 mg Oral HS Cathy Mcneal DO Valproate Sodium (Depacon) 250 mg in NSS 50 mL ivpb 250 mg IV Piggyback Q6H Cathy Mcneal DO Docusate Sodium (Colace) oral liquid 100 mg 100 mg Oral BID(AM/PM) Cathy Mcneal DO Polyethylene Glycol 3350 (Miralax) oral powder 17 g 1 Packet Oral Daily(AM) Cathy Mcneal DO senna (Senokot) 1 Tablet 1 Tablet Oral Daily(AM) Cathy Mcneal DO dextrose 50% inj 25 mL 25 mL IV Push PRN Cathy Mcneal DO dextrose 50% inj 50 mL 50 mL IV Push PRN Cathy Mcneal DO glucagon (Glucagen) inj 1 mg 1 mg Intramuscular PRN Cathy Mcneal DO Glucose (Glutose 15) 40 % gel 15 g of glucose 15 g of glucose Oral PRN Cathy Mcneal DO Glucose (Glutose 15) 40 % gel 30 g of glucose 30 g of glucose Oral PRN Cathy Mcneal DO glucose chew tab 16 g 16 g Oral PRN Cathy Mcneal DO oxygen GAS Inhalation Oxygen Cathy Mcneal DO albuterol-ipratropium (Duoneb) inhalation solution 3 mL 3 mL Nebulizer Q4H PRN Cathy Mcneal DO Benzonatate (Tessalon Perles) cap 100 mg 100 mg Oral Q8H PRN Cathy Mcneal DO dorzolamide (Trusopt Ocumeter Plus) 2 % ophthalmic solution 1 Drop 1 Drop Both eyes BID(AM/PM) Cathy Mcneal DO labetalol (Trandate) inj 10 mg 10 mg Intravenous Q1H PRN Cathy Mcneal DO cycloSPORINE (Restasis) 0.05 % ophthalmic emulsion 1 Drop 1 Drop Both eyes BID(AM/PM) Cathy Mcneal DO hEParin inj 5,000 Units 5,000 Units Subcutaneous Q8H Cathy Mcneal DO polyvinyl alcohol-povidone PF (Refresh) ophthalmic solution 1 Drop 1 Drop Both eyes Daily 1899 Cathy Mcneal DO chlorHEXIDINE (Periogard) 0.12 % oral rinse 15 mL 15 mL Oral mucosal membrane BID (799,1999) Cathy Mcneal DO Oral Hygiene: Mouth Swab with dentifrice Oral Q4H Limited (00;04;12;16) Cathy Mcneal DO sodium chloride 0.9 % flush peripheral lucy 3 mL 3 mL IV Push Q8H Cathy Mcneal DO TRANSFER MEDICATION RECONCILIATION COMPLETED? yes REVIEW OF SYSTEMS: Constitutional: (-) fever chills sweats or weight loss Eyes: (-) otherwise negative Cardiovascular: (-) otherwise negative Pulmonary: (-) otherwise negative Abdominal/GI: (-) otherwise negative Skin: (-) negative: no rash or new or changing moles Neurology: (-) negative: no focal neurologic defect Psychiatry: (-) otherwise negative OBJECTIVE: Most Recent Vital Signs: BP: 143 mmHg/65 mmHg (09/11/24 1510) Pulse: 72 (09/11/24 1502) Resp: 20 (09/11/24 1502) Temp: 37.28 C (09/11/24 1502) Temp Summary: Temp Min: 36.4 C (97.5 F) Max: 38 C (100.4 F) SpO2: 91 % (09/11/24 1502) O2 flow rate: 1 L/MIN (09/11/24 0700) Supplemental O2 Delivery: Room Air, None (09/11/24 1502) Vital Signs Last 24 Hours: Systolic BP: Most Recent Systolic BP Av.5 mmHg Min: 136 mmHg Max: 188 mmHg Temperature: Most Recent Temperature Av.1 C Min: 36.39 C Max: 38 C Pulse: Pulse Av.8 Min: 67 Max: 96 Respirations: Resp Av.9 Min: 16 Max: 32 SpO2: SpO2 Av.8 % Min: 91 % Max: 99 % Intake/Output Summary (Last 24 hours) at 09/11/2024 1551 Last data filed at 09/11/2024 1300 Gross per 24 hour Intake 594.41 ml Output 1465 ml Net -870.59 ml Constitutional: no acute distress, sitting comfortably in bedside chair CV: normal rate, normal rhythm Chest: normal respiratory effort Extremities: no cyanosis, no trauma Skin: warm, dry, intact: Neuro: alert, oriented to person, place, and time, cranial nerves intact, sensory normal Psych: confused, poor judgement LABS: Labs reviewed as indicated below: Lab results within last 7 days (see chart for full results) Units 09/11/24 0804 09/10/24 0603 09/09/24 0749 HGB g/dL 10.8* 11.4* 10.9* HCT % 32.7* 35.3* 34.1* WBC K/uL 7.87 7.49 6.71 PLT K/uL 186 161 139* Lab results within last 7 days (see chart for full results) Units 09/11/24 0644 09/10/24 0603 09/09/24 0749 SODIUM mmol/L 140 142 142 POTASSIUM mmol/L 3.8 3.6 3.8 CHLORIDE mmol/L 106 108* 110* CO2 mmol/L 17* 20* 22 BUN mg/dL 15 16 15 CREATININE mg/dL 1.3* 1.4* 1.4* HbA1c 6.9% LDL 42 IMAGING: CTH 09/06/24 IMPRESSION: 1. 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 No evidence of significant midline shift. 2. Additional scattered foci of bilateral cerebral hemispheric peripheral late acute/early subacuteinfarcts, potentially embolic and better appreciated on prior MRI brain dated 09/06/2024 MRI brain w/ and w/o contrast 09/06/24 IMPRESSION: Evolving left temporal lobe intraparenchymal hematoma with surrounding edema and stable (overall mild) mass-effect, favoring hemorraghic transformation/secondary hematoma within a recent left MCA territory infarct. An underlying lesion such as cerebral amyloid angiopathy, AVM or mass lesion are notentirely excluded. Recommend follow-up in 6 weeks after further hematoma resolution. Additional scattered foci of bilateral cerebral hemispheric peripheral late acute/early subacute infarcts, possibly cardioembolic given distribution IMPRESSION and PLAN: L IPH - SBP<160 - Repeat CTH tomorrow morning - If CTH stable, start ASA 81mg on 09/12 - Lipitor 40mg daily - Receiving DVT ppx - Zio Patch at discharge HTN - Lisinopril 10mg daily - Diltiazem 60mg q6h Agitation, improved Hyperactive delirium - Depakote 250mg q6h - Sleep protocol - Melatonin 6mg qHS New HFrEF Hx of ND s/p 5 stents - Consult cardiology in AM Urinary Retention - Pimentel in place - SAND BOBBER finasteride 5mg daily - Tamsulosin 0.4mg daily - Plan for voiding trial on 09/12 T2DM - Hold SAND BOBBER meds - Medium dose SSI ACHS LLE PAD - Vascular surgery referral placed by ICU Diet: consistent carbohydrate Bowel regimen: Miralax + Senokot + Colace DVT ppx: heparin q8h Patient seen and discussed with Dr. Ohara Cosigned by Sagar Ohara MD at 09/11/2024 4:59 PM EST Associated attestation - Sagar Ohara MD - 09/11/2024 4:59 PM EST I saw and evaluated the patient today. I have reviewed the resident/fellow physician note and agree. Patient with embolic stroke and conversion of ischemia likely related to HTN. Multiple other issuesfor which he may have been better served on IM include new onset reduced EF, severe PAD, urinary retention issues and spell of flash pulmonary edema. Cardiology has yet to be consulted or discussed given the TTE findings. Will need cardiology evaluation in the AM. Given ischemic stroke and improved neurologic exam will repeat CT head in the AM and based on this start low dose aspirin. * Andre Olson DO - 09/11/2024 6:49 AM EST CCM - PROGRESS NOTE [facility]-[address] [id number] Name: Goran Hester Location: [facility] A436/A Date: 09/11/2024 Date of admission: 09/05/2024 Hospital length of stay: 6 days PATIENT DESCRIPTION: The patient is a 89 year old male with PMHx significant for ND s/p PCI X 5 with stents placed (lastMI 08/2022 complicated by 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) who initially presented to [facility] for change in mentation and agitation on 09/05 found to have a L MCA infarct with hemorrhagic conversion. Patient is neurologically in tact and has periods oflucency however, hospital course complicated by severe hospital/ICU delirium necessitating precedexinfusion. Subjective INTERIM HISTORY / SUBJECTIVE: No acute events overnight. Has been afebrile and non tachycardic. Required 2x labetalol doses overnight for high BP. Otherwise was asymptomatic. This AM, feels well. Denies headache dizziness, chest pain shortness of breath, abdominal pain, nausea or emesis. Objective CONSTITUTIONAL DATA / OBJECTIVE: Vital Signs (Most Recent): Pulse: 77 (09/11/24599) BP: 159/64 (09/11/24599) Resp: 24 (09/11/24599) Temp: 37.3 C (99.1 F) (09/11/24599) SpO2: 97 % (09/11/24599) Physical Examination: Constitutional: calm, in no acute distress HEENT: normocephalic atraumatic Eyes: sclera and conjunctiva normal Neck: supple CV: RRR, non tachycardic Chest: normal respiratory effort, no increased work of breathing, CTABL, on 1L Abdomen: Soft, non distended, no tenderness to palpation anywhere Extremities: No LE edema noted Male : pimentle Skin: Clean dry intact no jaundice Neuro: Alert and oriented. Cranial nerves 2-12 intact and equal bilaterally. Motor and sensory function of the upper and lower extremity intact and equal bilaterally. Following commands strictly. Psych: Normal mood and affect Laboratory Values: CBC Lab Results Component Value Date/Time WBC 7.87 09/11/2024 08:04 AM HGB 10.8 (L) 09/11/2024 08:04 AM HCT 32.7 (L) 09/11/2024 08:04 AM PLT 186 09/11/2024 08:04 AM BMP Lab Results Component Value Date/Time NA 140 09/11/2024 06:44 AM POTASSIUM 3.8 09/11/2024 06:44 AM CL 106 09/11/2024 06:44 AM CO2 17 (L) 09/11/2024 06:44 AM BUN 15 09/11/2024 06:44 AM CREAT 1.3 (H) 09/11/2024 06:44 AM Ca, Mg, Phos Lab Results Component Value Date/Time CA 8.4 09/11/2024 06:44 AM MG 1.8 09/11/2024 06:44 AM PHOSPHORUS 3.4 09/11/2024 06:44 AM Cultures: reviewed. Radiographic Studies: reviewed. XR CHEST 1 VIEW Result Date: 09/10/2024 IMPRESSION No significant interval change in the chest XR CHEST 1 VIEW Result Date: 09/08/2024 IMPRESSION Pulmonary edema. 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 with surrounding edema, stable Delirium precautions: light on during the day, maintain hearing aids, eyeglasses, reorient during the day, physical activity, encourage OOB Started valproic acid 250mg BID 09/08 in light of prolonged Qtc, avoiding Qtc prolonging medications- increased to 250 mg q.6 hours scheduled on 09/10, in addition to the previously ordered PRN doses.- seems to control agitation, attempt to wean on floor on 09/12 Neurochecks q4 hours Neurosurgery no longer following Remains on Keppra 500mg BID - switched to PO (need to confirm with neurosurg for an end date) On SAND BOBBER meds of citalopram Melatonin at night PULMONARY / RESPIRATORY: Hypertensive flash pulmonary edema, resolved on 09/08 s/p diuresis & BiPAP Acute hypoxic respiratory failure Respiratory driven protocol On 1L NC, wean as tolerated, maintain sats >92% CARDIOVASCULAR: History of ND s/p PCI with 5 stents placed in the past Coronary artery disease History of hypertension History of hyperlipidemia TTE 09/06 showed an EF 30-34%, no evidence of thrombus, no comment on PFO Holding SAND BOBBER antihypertensives and other meds including lisinopril, amlodipine, metoprolol, aspirin,plavix, atorvastatin 40 QHS Hold ASA X 1 week from insult, resume after 09/12 Holding amlodipine On lisinopril SAND BOBBER dose - increase to 10 daily Added cardizem 30 Q6H on 09/10, increase to 60 Q6H PRN labetalol 10mg q1 hour for SBP >160mmHg No palpable DP pulse in LLE but able to achieve doppler signal on, PT present JENN 09/06 was 0.5 on LLE Vascular surgery outpt eval as patient cannot be on any antiplt/coagulant for at least 4 weeks, holding ASA for at least a week GASTROINTESTINAL / HEPATOBILIARY: Last Bowel Movement: 09/10/24 (09/10/24 1400) Stool Description: Large;Brown;Mushy (09/10/24 1400) Bowel Regimen: senna and colace Stress Ulcer Prophylaxis: not indicated at this time.. Diet / Nutrition: consistent carb diet RENAL / METABOLIC / FLUIDS: EFFIE, improving Electrolyte abnormality Voiding spontaneously, but requiring straight caths for full emptying. If consistency straight cath above 350 mL, we will place a Pimentel catheter -- has a pimentel this AM Replete lytes as indicated. On SAND BOBBER finasteride Add flomax today INFECTIOUS DISEASES: No active concerns ENDOCRINE: Type II diabetes mellitus Medium dose SSI, accuchecks AC/HS hours, hypoglycemia protocol Holding all SAND BOBBER oral antihyperglycemics HEMATOLOGIC/ONCOLOGIC: VTE/DVT Prophylaxis: chemoprophylaxis with pneumatic compression devices MUSCULOSKELETAL/ P.T / O.T. / MOBILITY: PT/OT LINES / DRAINS / TUBES: LINES ALL Duration Peripheral Line Right;Lower Arm 20 Gauge 3 days Peripheral Line Upper;Right Arm 20 Gauge 2 days Pimentel catheter List of services consulted/following: ADULT PHYSICAL THERAPY CONSULT IP ADULT OCCUPATIONAL THERAPY CONSULT IP CARE MANAGEMENT CONSULT IP NEUROSURGERY CONSULT IP NEUROLOGY CONSULT IP ADULT SPEECH THERAPY CONSULT IP (ACUTE CARE REHAB) PHARMACY CONSULT IP ADULT SPEECH THERAPY CONSULT IP (ACUTE CARE REHAB) GLOBAL ISSUES: Code Status: No Code Central Line Necessity Reviewed: N/A Arterial Line Necessity Reviewed: N/A Pimentel: N/A Disposition: transfer to floor to neuro stroke service Patient's decisional capacity: does not have capacity to make decisions Communication with Patient/Family: Daily discussions held with children. Spoke with daughter in person. All questions answered. Patient seen and discussed with Dr. Marlys Olson DO, MS General Surgery PGY4 [facility] Cosigned by Scott Frankel MD at 09/11/2024 1:11 PM EST Associated attestation - Scott Frankel MD - 09/11/2024 1:11 PM EST Brief synopsis: Goran Hester presented on 09/05/2024 with Left MCA stroke with hemorrhagic conversion and mass effect. Moves all extremities equally. At baseline ambulates with a walker DAPT. Problems/Injury Complex: Stroke with hemorrhagic conversion Delirium QTC prolongation Comorbidities: Past Medical History No past medical history on file. Last 24 hrs: Down to 1 L NC Labetolol x2 yesterday otherwise well controlled off cardene drip Started on Cardizem 30 Q6 yesterday No agitation over night Following commands this morning still confused Pimentel replaced for retention AVSS this AM Lung CTA No focal deficit Labs WNL Focused Plan: - Keppra BID PO - Valproate to 250 Q6 scheduled - Melatonin 6 QHS - SAND BOBBER citalopram - Increase Diltiazem to 60 Q6 - Increase Lisinopril 10 - o/p Vascular surgery evaluation - Continue Carb consistent diet - SAND BOBBER PPI - Finasteride SAND BOBBER - Start Flomax 4 mg - PT/OT - Transfer to the floor to neuro/stroke Concurrent plan as below. I performed an evaluation of the patient on on the date of service indicated in the note and I havediscussed the patient's management with the advanced provider / trainee. Please refer to the attached note for the complete documented findings and plan of care. I have personally provided 35 minutes of critical care time exclusive of time spent on separately billable procedures. This time includes review of laboratory data, radiology results and monitoring for potential decompensation. Any interventions performed are as documented below. Upon my evaluation, this patient had a high probability of imminent or life- threatening deterioration due to diagnostic services - neurologic failure and therapeutic services - frequent evaluation and titration of therapies, which required my direct attention, intervention, and personal management. I agree with the trainee's note which was reviewed and edited in detail on rounds per my direction. Juana Frankel Surgical Critical Care / EGS / Trauma * Whitney Andre Brisa, DO - 09/10/2024 3:01 PM EST CCM - PROGRESS NOTE [facility] [place]-[address] [address] Name: Goran Hester Location: [facility] A436/A Date: 09/10/2024 Date of admission: 09/05/2024 Hospital length of stay: 5 days PATIENT DESCRIPTION: The patient is a 89 year old male with PMHx significant for ND s/p PCI X 5 with stents placed (lastMI 08/2022 complicated by 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) who initially presented to [facility] for change in mentation and agitation on 09/05 found to have a L MCA infarct with hemorrhagic conversion. Patient is neurologically in tact and has periods oflucency however, hospital course complicated by severe hospital/ICU delirium necessitating precedexinfusion. Subjective INTERIM HISTORY / SUBJECTIVE: Overnight, was agitated and had an elevated blood pressure for which he received labetalol. This was complicated by flash pulmonary edema for which he received Lasix 40 mg IV and responded well. This morning, calm, blood pressure controlled, and he is responding to stimuli and following commands Objective CONSTITUTIONAL DATA / OBJECTIVE: Vital Signs (Most Recent): Pulse: 48 (09/10/24 1200) BP: 132/56 (09/10/24 1215) Resp: 18 (09/10/24 1200) Temp: 36.3 C (97.3 F) (09/10/24 1200) SpO2: 100 % (09/10/24 1200) Physical Examination: Physical Exam Constitutional: General: He is not in acute distress. Appearance: Normal appearance. HENT: Head: Normocephalic and atraumatic. Eyes: Extraocular Movements: Extraocular movements intact. Conjunctiva/sclera: Conjunctivae normal. Pupils: Pupils are equal, round, and reactive to light. Cardiovascular: Rate and Rhythm: Normal rate and regular rhythm. Pulses: Radial pulses are 2+ on the right side and 2+ on the left side. Dorsalis pedis pulses are 0 on the right side and 2+ on the left side. Heart sounds: Normal heart sounds. Comments: Dopplerable left DP pulse Pulmonary: Effort: Pulmonary effort is normal. Breath sounds: Normal breath sounds. No decreased breath sounds or wheezing. Abdominal: General: Abdomen is protuberant. There is no distension. Palpations: Abdomen is soft. Tenderness: There is no abdominal tenderness. Musculoskeletal: Cervical back: Neck supple. Right lower leg: No edema. Left lower leg: No edema. Skin: General: Skin is warm and dry. Coloration: Skin is not jaundiced. Neurological: General: No focal deficit present. GCS: GCS eye subscore is 3. GCS verbal subscore is 5. GCS motor subscore is 6. Sensory: Sensation is intact. Comments: Awake, responsive, following commands. Psychiatric: Behavior: Behavior is cooperative. Comments: Not as agitated as previous Laboratory Values: CBC Lab Results Component Value Date/Time WBC 7.49 09/10/2024 06:03 AM HGB 11.4 (L) 09/10/2024 06:03 AM HCT 35.3 (L) 09/10/2024 06:03 AM PLT 161 09/10/2024 06:03 AM BMP Lab Results Component Value Date/Time NA 142 09/10/2024 06:03 AM POTASSIUM 3.6 09/10/2024 06:03 AM CL 108 (H) 09/10/2024 06:03 AM CO2 20 (L) 09/10/2024 06:03 AM BUN 16 09/10/2024 06:03 AM CREAT 1.4 (H) 09/10/2024 06:03 AM Ca, Mg, Phos Lab Results Component Value Date/Time CA 8.5 09/10/2024 06:03 AM MG 1.7 09/10/2024 06:03 AM PHOSPHORUS 3.8 09/10/2024 06:03 AM Cultures: reviewed. Radiographic Studies: reviewed. XR CHEST 1 VIEW Result Date: 09/10/2024 IMPRESSION No significant interval change in the chest XR CHEST 1 VIEW Result Date: 09/08/2024 IMPRESSION Pulmonary edema. 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 Neurochecks q4 hours Analgesia/Sedation: precedex for agitation (currently off) RASS Goal: 0 Neurosurgery no longer following Remains on Keppra 500mg BID, switched back to IV in light of NPO status due to mental status Speech reevaluated today - past for regular diet, we will allow him to get a regular diet Holding SAND BOBBER meds of citalopram - restart Melatonin at night PULMONARY / RESPIRATORY: Hypertensive flash pulmonary edema, resolved on 09/08 s/p diuresis & BiPAP Acute hypoxic respiratory failure Respiratory driven protocol On 6:L NC, wean as tolerated, maintain sats >92% CARDIOVASCULAR: History of ND s/p PCI with 5 stents placed in the past Coronary artery disease History of hypertension History of hyperlipidemia TTE 09/06 showed an EF 30-34%, no evidence of thrombus, no comment on PFO Holding SAND BOBBER antihypertensives and other meds including lisinopril, amlodipine, metoprolol, aspirin,plavix, atorvastatin 40 QHS Hold ASA X 1 week from insult, resume after 09/12 Restart amlodipine at 5 and lisinopril SAND BOBBER dose for this AM PRN labetalol 10mg q1 hour for SBP >160mmHg Cardine infusion if indicated Will start cardizem 30 Q6H as well No palpable DP pulse in LLE but able to achieve doppler signal on, PT present JENN 09/06 was 0.5 on LLE Vascular surgery outpt eval as patient cannot be on any antiplt/coagulant for at least 4 weeks, holding ASA for at least a week GASTROINTESTINAL / HEPATOBILIARY: Last Bowel Movement: 09/09/24 (09/09/242099) Stool Description: Small;Andrés (09/09/242099) Bowel Regimen: Not able to give, may try suppositories Stress Ulcer Prophylaxis: not indicated at this time.. Diet / Nutrition: NPO per speech recs 09/09 On re-evaluation, we will advanced to consistent carb diet. RENAL / METABOLIC / FLUIDS: EFFIE, improving Electrolyte abnormality Voiding spontaneously, but requiring straight caths for full emptying. If consistency straight cath above 350 mL, we will place a Pimentel catheter. Replete lytes as indicated. INFECTIOUS DISEASES: No active concerns ENDOCRINE: Type II diabetes mellitus Medium dose SSI, accuchecks q6 hours, hypoglycemia protocol Will switch to AC/HS when consistently taking PO and doing well with that. Holding all SAND BOBBER oral antihyperglycemics HEMATOLOGIC/ONCOLOGIC: VTE/DVT Prophylaxis: chemoprophylaxis with pneumatic compression devices MUSCULOSKELETAL/ P.T / O.T. / MOBILITY: PT/OT LINES / DRAINS / TUBES: LINES ALL Duration Peripheral Line Right;Lower Arm 20 Gauge 2 days Peripheral Line Upper;Right Arm 20 Gauge 1 day List of services consulted/following: ADULT PHYSICAL THERAPY CONSULT IP ADULT OCCUPATIONAL THERAPY CONSULT IP CARE MANAGEMENT CONSULT IP NEUROSURGERY CONSULT IP NEUROLOGY CONSULT IP ADULT SPEECH THERAPY CONSULT IP (ACUTE CARE REHAB) PHARMACY CONSULT IP ADULT SPEECH THERAPY CONSULT IP (ACUTE CARE REHAB) GLOBAL ISSUES: Code Status: No Code Central Line Necessity Reviewed: N/A Arterial Line Necessity Reviewed: N/A Pimentel: N/A Disposition: keep in ICU :[id number]} Patient's decisional capacity: does not have capacity to make decisions Communication with Patient/Family: Daily discussions held with children. Spoke with daughter in person. All questions answered. Patient seen and discussed with Dr. Marlys Olson DO, MS General Surgery PGY4 [facility] Cosigned by Scott Frankel MD at 09/11/2024 8:42 AM EST Associated attestation - Scott Frankel MD - 09/11/2024 8:42 AM EST Brief synopsis: Goran Hester presented on 09/05/2024 with Left MCA stroke with hemorrhagic conversion and mass effect. Moves all extremities equally. At baseline ambulates with a walker DAPT. Problems/Injury Complex: Stroke with hemorrhagic conversion Delirium QTC prolongation Comorbidities: Past Medical History No past medical history on file. Last 24 hrs: Very agitated over night given valproate PRN HTN started on a cardene drip precedex restarted Given 40 of lasix due to edema on CXR over night Following commands this AM Last Bm yesterday Failed speech evaluation AVSS this AM on 6 L NC this AM was on HFNC over night Neuro exam without deficit Straight cathed Focused Plan: - Increase Valproate to 250 Q6 scheduled - Melatonin 6 QHS - Dex PRN - Give Citalopram - Norvasc 5 daily FDN - Lisinopril 5 QD - Speech re-eval tomorrow - Finasteride SAND BOBBER - Replace pimentel catheter - SAND BOBBER PPI equivalent - PT/OT Concurrent plan as below. I performed an evaluation of the patient on on the date of service indicated in the note and I havediscussed the patient's management with the advanced provider / trainee. Please refer to the attached note for the complete documented findings and plan of care. I have personally provided 35 minutes of critical care time exclusive of time spent on separately billable procedures. This time includes review of laboratory data, radiology results and monitoring for potential decompensation. Any interventions performed are as documented below. Upon my evaluation, this patient had a high probability of imminent or life- threatening deterioration due to diagnostic services - neurologic failure and therapeutic services - frequent evaluation and titration of therapies, which required my direct attention, intervention, and personal management. I agree with the trainee's note which was reviewed and edited in detail on rounds per my direction. Juana Frankel Surgical Critical Care / EGS / Trauma * Patricio Mercedes PA-C - 09/10/2024 3:38 AM EST CCM Progress Note: Called to bedside for acute desaturations. Earlier this evening, Pt was resting comfortably, no acute distress. Pt woke up, found to have hypertension (sbp 180s), treated with labetalol but he didn'trespond to it. Pt now with worsening oxygenation. Pt was on 2 liters then to 6 liters now to HFNC. On exam, pt with mild respiratory distress, SBP now 200s with labetalol. Lung sounds diminished b/l with crackles. Mental status ok - pt interactive, answering questions. Suspect another flash pulm edema episode. Will check CXR, administer lasix 40 mg IVP and start nicardipine for BP control. Pt discussed with Dr. Pyle. I have provided critical care diagnostic services for respiratory failure and therapeutic services with frequent vasoactive agent adjustments for this patient on the date referenced above. Time devoted to patient care services described in this note equal: 40 minutes total critical care time exclusive of time spent performing procedures or time spent by another provider or resident. Cosigned by Drake Pyle MD at 09/10/2024 5:18 AM EST * Shala Mosley DO - 09/09/2024 9:00 AM EST CCM - PROGRESS NOTE [facility] [place]-[address] [place] [address] Name: Goran Hester Location: [facility] A436/A Date: 09/09/2024 Date of admission: 09/05/2024 Hospital length of stay: 4 days PATIENT DESCRIPTION: The patient is a 89 year old male with PMHx significant for ND s/p PCI X 5 with stents placed (lastMI 08/2022 complicated by 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) who initially presented to [facility] for change in mentation and agitation on 09/05 found to have a L MCA infarct with hemorrhagic conversion. Patient is neurologically in tact and has periods oflucency however, hospital course complicated by severe hospital/ICU delirium necessitating precedexinfusion. Subjective INTERIM HISTORY / SUBJECTIVE: Patient remained calm overnight and had no bouts of agitation. High flow weaned to nasal cannula after hypertensive pulmonary edema episode yesterday. He was cooperative and oriented during exam. Remained afebrile and hemodynamically stable overnight. Objective CONSTITUTIONAL DATA / OBJECTIVE: Vital Signs (Most Recent): Pulse: 53 (09/09/241899) BP: 159/63 (09/09/241899) Resp: 21 (09/09/241899) Temp: 36.3 C (97.3 F) (09/09/24 1800) SpO2: 94 % (09/09/241899) Physical Examination: Physical Exam Constitutional: General: He is not in acute distress. HENT: Head: Normocephalic and atraumatic. Eyes: Extraocular Movements: Extraocular movements intact. Conjunctiva/sclera: Conjunctivae normal. Pupils: Pupils are equal, round, and reactive to light. Cardiovascular: Rate and Rhythm: Normal rate and regular rhythm. Pulses: Radial pulses are 2+ on the right side and 2+ on the left side. Dorsalis pedis pulses are 0 on the right side and 2+ on the left side. Heart sounds: Normal heart sounds. No murmur heard. Comments: Dopplerable left DP pulse Pulmonary: Effort: Pulmonary effort is normal. Breath sounds: Normal breath sounds. No decreased breath sounds, wheezing, rhonchi or rales. Abdominal: General: Abdomen is protuberant. Bowel sounds are normal. Palpations: Abdomen is soft. Tenderness: There is no abdominal tenderness. Skin: General: Skin is warm and dry. Neurological: Mental Status: He is lethargic. GCS: GCS eye subscore is 3. GCS verbal subscore is 5. GCS motor subscore is 6. Sensory: Sensation is intact. Psychiatric: Behavior: Behavior is cooperative. Laboratory Values: reviewed. Cultures: reviewed. Radiographic Studies: reviewed. XR CHEST 1 VIEW Result Date: 09/08/2024 IMPRESSION Pulmonary edema. 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 with surrounding edema, stable Delirium precautions: light on during the day, maintain hearing aids, eyeglasses, reorient during the day, physical activity, encourage OOB Started valproic acid 250mg BID 09/08 in light of prolonged Qtc, avoiding Qtc prolonging medications Neurochecks q4 hours Analgesia/Sedation: precedex for agitation RASS Goal: 0 Neurosurgery no longer following Remains on Keppra 500mg BID, switched back to IV in light of NPO status due to mental status Speech reevaluated today, recommended maintain NPO Holding SAND BOBBER meds of citalopram PULMONARY / RESPIRATORY: Hypertensive flash pulmonary edema, resolved on 09/08 s/p diuresis & BiPAP Acute hypoxic respiratory failure Respiratory driven protocol On 4L nasal cannula, wean as tolerated, maintain sats >92% CXR ordered today CARDIOVASCULAR: History of ND s/p PCI with 5 stents placed in the past Coronary artery disease History of hypertension History of hyperlipidemia TTE 09/06 showed an EF 30-34%, no evidence of thrombus, no comment on PFO Holding SAND BOBBER antihypertensives and other meds including lisinopril, amlodipine, metoprolol, aspirin,plavix, atorvastatin 40 QHS Hold ASA X 1 week from insult, resume after 09/12 PRN labetalol 10mg q1 hour for SBP >160mmHg No palpable DP pulse in LLE but able to achieve doppler signal on, PT present JENN 09/06 was 0.5 on LLE Vascular surgery outpt eval as patient cannot be on any antiplt/coagulant for at least 4 weeks, holding ASA for at least a week GASTROINTESTINAL / HEPATOBILIARY: Last Bowel Movement: 09/07/24 (09/09/24 0800) Stool Description: Large;Mushy;Brown (09/07/241999) Bowel Regimen: Not able to give, may try suppositories Stress Ulcer Prophylaxis: not indicated at this time.. Diet / Nutrition: NPO per speech recs 09/09 RENAL / METABOLIC / FLUIDS: EFFIE, improving Voiding spontaneously INFECTIOUS DISEASES: No active concerns ENDOCRINE: Type II diabetes mellitus Medium dose SSI, accuchecks q6 hours, hypoglycemia protocol Holding all SAND BOBBER oral antihyperglycemics HEMATOLOGIC/ONCOLOGIC: VTE/DVT Prophylaxis: chemoprophylaxis with pneumatic compression devices MUSCULOSKELETAL/ P.T / O.T. / MOBILITY: PT/OT LINES / DRAINS / TUBES: LINES ALL Duration Peripheral Line Right;Lower Arm 20 Gauge 1 day Peripheral Line Upper;Right Arm 20 Gauge 1 day List of services consulted/following: ADULT PHYSICAL THERAPY CONSULT IP ADULT OCCUPATIONAL THERAPY CONSULT IP CARE MANAGEMENT CONSULT IP NEUROSURGERY CONSULT IP NEUROLOGY CONSULT IP ADULT SPEECH THERAPY CONSULT IP (ACUTE CARE REHAB) PHARMACY CONSULT IP ADULT SPEECH THERAPY CONSULT IP (ACUTE CARE REHAB) GLOBAL ISSUES: Code Status: No Code Central Line Necessity Reviewed: N/A Arterial Line Necessity Reviewed: N/A Pimentel: N/A Disposition: keep in ICU until off precedex drip :[id number]} Patient's decisional capacity: does not have capacity to make decisions Communication with Patient/Family: Daily discussions held with children. Spoke with daughter in person. All questions answered. Encouraged consideration of temporary NG tube since NPO for prolonged period of time. Patient was discussed with attending physician, MD Shala Worrell DO Critical Care Fellow Cosigned by Scott Frankel MD at 09/11/2024 8:42 AM EST Associated attestation - Scott Frankel MD - 09/11/2024 8:42 AM EST Brief synopsis: Goran Hester presented on 09/05/2024 with Left MCA stroke with hemorrhagic conversion and mass effect. Moves all extremities equally. At baseline ambulates with a walker DAPT. Problems/Injury Complex: Stroke with hemorrhagic conversion Delirium QTC prolongation Comorbidities: Past Medical History No past medical history on file. Last 24 hrs: Hyperactive delirium through the day yesterday QTC 510 started Depakote with good response Dex at 0.6 this AM HTN emergency with pulmonary edema yesterday responded to lasix and anxiolysis BP much better controlled this AM Weaned off BiPAP to nasal canula this morning Urinary retention yesterday Focused Plan: - Valproic acid 250 BID and Q12 PRN - Wean Dex to RASS 0 to +1 - Keppra per neurology - CXR this am for interval eval may need more diuresis - Last BM 2 days ago - increase bowel regimen - Continue Pimentel for now Concurrent plan as below. I performed an evaluation of the patient on on the date of service indicated in the note and I havediscussed the patient's management with the advanced provider / trainee. Please refer to the attached note for the complete documented findings and plan of care. I have personally provided 35 minutes of critical care time exclusive of time spent on separately billable procedures. This time includes review of laboratory data, radiology results and monitoring for potential decompensation. Any interventions performed are as documented below. Upon my evaluation, this patient had a high probability of imminent or life- threatening deterioration due to diagnostic services - neurologic failure and therapeutic services - frequent evaluation and titration of therapies, which required my direct attention, intervention, and personal management. I agree with the trainee's note which was reviewed and edited in detail on rounds per my direction. Juana Frankel Surgical Critical Care / EGS / Trauma * Andre Olson, - 09/08/2024 8:03 AM EST CCM - PROGRESS NOTE [facility] [place]-[address] [id number] Name: Goran Hester Location: [facility] [facility] A436/A Date: 09/06/2024 Time: 8:38 AM PATIENT DESCRIPTION: The patient is a 89 year old male with hx of admitted for spontaneous intracranial hemorrhage. Per lifeflight patient was at [facility] and experienced change in mental status with disorientation and physical agitation. The patient was imaged 09/05/24 0128 and imaging read at 1118 found to have 4.1 x 2.8 cm intraparenchymal hematoma within the left temporal lobe. He received 2g Keppra and IV magnesium for hypomagnesemia and was lifeflighted to [facility]. Examining the patient on arrival he is Alert but confused and only oriented to self. Follows commands, does not endorse any pain. Son arrived 1645 per report patient has PMH ND x5 w/ stents. Patient son reports last ND 08/2022 complicated by 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. Patient lives at [facility]. HPI/EVENTS OF NOTE: During evening sign out yesterday, patient was getting more agitated. Required Precedex infusion alexis started and received 5 mg Haldol in addition to 1 labetalol dose overnight. Since then he has been doing well, Precedex is down 2.2 from 1. This morning sitting comfortably in bed, in no distress. Not agitated. Responding to stimuli. On talking to nursing staff, GCS 13-14. Straight catheterization overnight as well CONSTITUTIONAL DATA: BP: 137 mmHg/61 mmHg (09/08/24699) Pulse: 45 (09/08/24699) Resp: 16 (09/08/24699) Temp: 35.89 C (09/08/24599) Temp Summary: Temp Min: 35.9 C (96.6 F) Max: 37.6 C (99.7 F) SpO2: 97 % (09/08/24699) O2 flow rate: 6 L/MIN (09/08/24599) Supplemental O2 Delivery: Simple Mask (09/08/24599) Vent Settings: PHYSICAL EXAM: Constitutional: in no acute distress HEENT: normocephalic awake Eyes: sclera and conjunctiva normal Neck: supple CV: RRR, non tachycardic Chest: normal respiratory effort, lungs CTABL Abdomen: soft, no TTP , nondistended Extremities: no LE edema noted Male : straight cathed this AM Skin: warm, dry, intact: Neuro: sleepy, GCS 13 following commands LABORATORY VALUES: CBC Lab Results Component Value Date/Time WBC 6.93 09/08/2024 06:05 AM HGB 10.2 (L) 09/08/2024 06:05 AM HCT 32.6 (L) 09/08/2024 06:05 AM PLT 116 (L) 09/08/2024 06:05 AM BMP Lab Results Component Value Date/Time NA 136 09/08/2024 06:05 AM POTASSIUM 4.7 09/08/2024 06:05 AM CL 106 09/08/2024 06:05 AM CO2 20 (L) 09/08/2024 06:05 AM BUN 18 09/08/2024 06:05 AM CREAT 1.6 (H) 09/08/2024 06:05 AM Ca, Mg, Phos Lab Results Component Value Date/Time CA 8.1 (L) 09/08/2024 06:05 AM MG 2.3 09/08/2024 06:05 AM PHOSPHORUS 4.0 09/08/2024 06:05 AM RADIOGRAPHIC STUDIES: reviewed Active Problems: Stroke-like symptoms (POA: Unknown) Intraparenchymal hemorrhage of brain (HCC) (POA: Unknown) POA = Present On Admission SYSTEM BASED PLAN: ASSESSMENT: Pt is a 89 year old male with hx as above admitted for altered mental status likely 2/2 intraparenchymal hemorrhage. 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 Neuro checks q1 - spaced to Q4H Neurology consulted, apprediate recs Neurosurgery consulted, appreciate reccs Keppra 500 bid - switched back to IV after he was agitated and could not take PO Repeat CT head/brain midnight Similar IPH left temporal lobe MRI done (no acute change) Speech eval cleared for a diet 09/07 SAND BOBBER meds: - holding for now given agitation and precedex infusion, will restart pending DC that Citalopram 10 daily Cyclosporine and dorzolamide eye ointment/drops Started on Precedex for agitation on 09/07 evening Start Risperidone 0.5 mg BID ODT in attempt and come off precedex infusion PULMONARY / RESPIRATORY: No acute issues On 6L Will order CXR and DuoNeb CARDIOVASCULAR: PMH Mix5 w/ stents, HTN, possible hx arrythmia with loop recorder device in place NSR w/ PVCs at OSH HTN, HLD Nicardipine 5mg/hr goal <140 - currently off, per gtt protocol Labetalol 10mg q1Hr PRN SBP>140 OSH trop 33.9 ECHO ordered with bubble study - done 09/06 (EF 30-34%, no evidence of thrombus, no comment on PFO) LLE with low doppler signal on DP, PT present and feels colder - JENN done 09/06, 0.5 on LLE Will order vascular surgery outpt eval - patient cannot be on any antiplt/coagulant for at least 4 weeks, holding ASA for at least a week Holding ASA, Plavix, lisinopril 5 daily Additional SAND BOBBER meds - holding for now given agitation and precedex infusion, will restart pending DC that Amlodipine 2.56 mg daily tomorrow Metoprolol 25 mg BID today (instead of 75 am 50 pm) Atorvastatin 40 QHS GASTROINTESTINAL / HEPATOBILIARY: No acute issues Bowel Regimen: Hold Stress Ulcer Prophylaxis: Histamine 2 Receptor Jane.. HFP Speech eval cleared for a diet 09/07 NPO - starting thin liquid with regular diet when able after precedex is DCed RENAL / METABOLIC / FLUIDS: EFFIE Monitor electrolytes at least daily. Replete electrolytes as indicated Strict monitoring of fluid intake and output Renal dosing and medication considerations adjusted for glomerular filtration rate Daily weights BMP, Mag, Phos, iCa BUN/Cr 21/1.7 unknown baseline IVF at 50 cc/hr - continue in the meantime Pimentel removed 09/07 Holding SAND BOBBER finasteride 5 mg daily - holding for now given agitation and precedex infusion, will restart pending DC that INFECTIOUS DISEASES: Leukocytosis 11.6 Resolved ENDOCRINE: No acute issues Blood Glucose Monitoring (BGM) Goal: 140-180 Glycemic Control: No protocol CYNDI Point of Care Glucose (Bedside) Measurements Most recent: Last 24 hours: No data recorded Last 36 hours: No data recorded Last 48 hours: No data recorded Holding SAND BOBBER glipizide, metformin Starting SSI with glucoses Q6H HEMATOLOGIC: Patient on DAPT hx Mix5 w/ stent await outside records Anemia VTE/DVT Prophylaxis: pneumatic compression devices SQH starting 09/06 PT/INR, aPTT CBC Labs show hemodilution MUSCULOSKELETAL / P.T / O.T. / MOBILITY: No acute issues PT/OT when able Speech eval - as above CODE STATUS No Code LINES / DRAINS / TUBES: LINES ALL Duration Peripheral Line Anterior;Left Wrist 20 Gauge 2 days Peripheral Line Right;Lower Arm 20 Gauge <1 day GLOBAL ISSUES: Analgesia: protocol with control Sedation: N/A Delirium/Confusion Assessment Method for ICU (CAM-ICU): CAM-ICU negative HOB Elevation: greater than 30 degress Nutrition: NPO DVT Prophylaxis: pneumatic compression devices alone due to chemoprophylaxis contraindication Stress Ulcer Prophylaxis: histamine 2 antagonist Glycemic Control: controlled - protocol Central Line Necessity Reviewed: N/A Pimentel: N/A Disposition: Keep in ICU pending precedex infusion and improvement of agitation Patient's decisional capacity: does not have capacity to make decisions Communication with Patient/Family: No meeting held. Goals of Care: improve mental status Patient seen and discussed with Dr. Marlys Olson DO, MS General Surgery PGY4 [facility] Cosigned by Scott Frankel MD at 09/09/2024 4:09 PM EST Associated attestation - Scott Frankel MD - 09/09/2024 4:09 PM EST Brief synopsis: Goran Hester presented on 09/05/2024 with Left MCA stroke with hemorrhagic conversion and mass effect. Moves all extremities equally. At baseline ambulates with a walker DAPT. Problems/Injury Complex: Stroke with hemorrhagic conversion Comorbidities: Past Medical History No past medical history on file. Last 24 hrs: Agitated confusion last night required haldol and Dex drip Otherwise stable Remained off Cardene drip Wheezing yesterday AVSS on 6L simple mask Dex 0.2 GCS 13 (3,4,6) No focal deficits Labs WNL Focused Plan: - Risperdal ODT 0.5 BID - wean Dex RASS of 0 to +1 - Melatonin 6 mg QHS - Keep glasses and hearing aids in - Lights on window blinds open. - Encourage family to be at bedside at all times to encourage re-orientation - Q4 hr neuro checks - OOB to chair as long as possible today - Outpatient vascular consult unless he develops symptoms to the left leg. - Speech eval today. - HSQ - PTOT - Straight cath protocol - ISS - PT/OT - encourage ambulation - No Code Concurrent plan as below. I performed an evaluation of the patient on on the date of service indicated in the note and I havediscussed the patient's management with the advanced provider / trainee. Please refer to the attached note for the complete documented findings and plan of care. I have personally provided 35 minutes of critical care time exclusive of time spent on separately billable procedures. This time includes review of laboratory data, radiology results and monitoring for potential decompensation. Any interventions performed are as documented below. Upon my evaluation, this patient had a high probability of imminent or life- threatening deterioration due to diagnostic services - neurologic failure and therapeutic services - frequent evaluation and titration of therapies, which required my direct attention, intervention, and personal management. I agree with the trainee's note which was reviewed and edited in detail on rounds per my direction. Juana Frankel Surgical Critical Care / EGS / Trauma * Arnoldo Sawant, DO - 09/07/2024 7:29 PM EST CCM - PROGRESS NOTE [facility] [address] Name: Goran Hester Location: [facility] A436/A Date: 09/07/2024 Time: 7:36 PM During handoff nursing brought to my awarness that he was markedly agitated, hypertensive, tachypnic and requiring multiple people to restrain him from harming himself. He lost one PIV access during the episode. My eval confirmed above. Dex infusion initiated at low dose 0.5 and not effective enough, so we administered 5 mg iv haldol and after about 15 min he was still requring physicial restraints. Turned his dex infusion up to 1.0. hi bp is above goal but measurements have been obtained while hehas been agitated and flexing his arms. CONSTITUTIONAL DATA: BP: 171 mmHg/73 mmHg (09/07/241899) Pulse: 91 (09/07/241899) Resp: 29 (09/07/241899) Temp: 37.39 C (09/07/24 1800) Temp Summary: Temp Min: 36.4 C (97.5 F) Max: 37.9 C (100.2 F) SpO2: 90 % (09/07/241899) O2 flow rate: 6 L/MIN (09/07/241899) Supplemental O2 Delivery: Nasal Cannula (09/07/241899) PHYSICAL EXAM: Constitutional: (+) ill appearing, agitated restless CV: normal rate and rhythm, no murmur, gallops or rub Chest: breath sounds normal Abdomen: soft, normal bowel sounds Extremities: no clubbing, cyanosis, or edema, otherwise grossly normal, warm, and dry Principal Problem: 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 Systolic heart failure (HCC) (POA: Unknown) Dyslipidemia, goal LDL below 70 (POA: Unknown) Delirium due to multiple etiologies, acute, hyperactive (POA: Unknown) - sleep protocol, prn melatonin (if he can safely take po meds), started haldol prn with dex infusion. Qtc monitor also initiated and before first dose haldol qtc 463. Encephalopathy acute (POA: Unknown) POA = Present On Admission I have provided critical care diagnostic services for neurologic failure and therapeutic services with neurological monitoring and treatment for this patient on the date referenced above. Time devoted to patient care services described in this note equal: 32 minutes total critical care time exclusive of time spent performing procedures or time spent by another provider or resident. * Cathy Mcneal DO - 09/07/2024 5:07 PM EST TRANSFER RECEIVING NOTE - Neurology [facility]-[address] [address] Name: Goran Hester Current Location: [address] HANDOFF COMMUNICATION: Sending patient service: [facility] Soraya Accepting service: Neurology Stroke Sending attending aware of patient and transfer: yes Receiving attending aware of patient and transfer: yes Name of receiving attending provider: Sagar Ohara Patient care is being assumed by receiving service: when patient arrives in receiving unit Reason for transfer: downgrade from ICU SUBJECTIVE: Patient is a 89yo M with PMHx of HTN, CAD, hx of ND s/p stenting that presented with L temporal [facility]after [facility] Given MRI findings of surrounding ischemic burden, mostlikely etiology of bleed is ischemic stroke with hemorrhagic transformation. Patient required ICU level of care for monitoring of the hemorrhage and nicardipine infusion for blood pressure control. Nicardipine stopped around 0900 this morning and patient required one PRN labetalol during the day today. On my evaluation this morning, patient was very confused and couldn't understand how or why he was in the hospital. He was insistent that the Super Bowl had not happened yet. He believed he was in a pharmacy, not the hospital. CURRENT HOSPITAL MEDICATIONS: Note that completed medications (per the MAR) continue to display for 24 hours. Ordered medicationsto be given in the future also display. Current Facility-Administered Medications Medication Dose Route Frequency Provider albuterol-ipratropium (Duoneb) inhalation solution 3 mL 3 mL Nebulizer Q4H PRN Shala Mosley DO amLODIPine (Norvasc) tab 5 mg 5 mg Oral Daily(AM) Andre Olson Ateriki, DO atorvaSTATin (Lipitor) tab 40 mg 40 mg Oral Q 1700 Andre Olson, Benzonatate (Tessalon Perles) cap 100 mg 100 mg Oral Q8H PRN Andre Olson, DO citalopram (Celexa) oral soln 10 mg 10 mg Oral Daily(AM) Andre Olson, DO dorzolamide (Trusopt Ocumeter Plus) 2 % ophthalmic solution 1 Drop 1 Drop Both eyes BID(AM/PM) Andre Olson, [START ON 09/08/2024] Famotidine (Pepcid) tab 20 mg 20 mg Oral Daily(AM) Shala Mosley DO Finasteride (Proscar) tab 5 mg 5 mg Oral Daily(AM) Andre Olson, DO levETIRAcetam (Keppra) tab 500 mg 500 mg Oral BID(AM/PM) Shala Mosley DO Metoprolol Tartrate (Lopressor) tab 25 mg 25 mg Oral BID(AM/PM) Andre Olson, DO cycloSPORINE (Restasis) 0.05 % ophthalmic emulsion 1 Drop 1 Drop Both eyes BID(AM/PM) Shala Mosley DO hEParin inj 5,000 Units 5,000 Units Subcutaneous Q8H Shala Mosley DO polyvinyl alcohol-povidone PF (Refresh) ophthalmic solution 1 Drop 1 Drop Both eyes Daily 1900 Shala Mosley DO chlorHEXIDINE (Periogard) 0.12 % oral rinse 15 mL 15 mL Oral mucosal membrane BID (08,1999) Power Barba MD Oral Hygiene: Mouth Swab with dentifrice Oral Q4H Limited (00;04;12;16) Power Barba MD oxygen GAS Inhalation Oxygen Power Barba MD sodium chloride 0.9 % flush peripheral lucy 3 mL 3 mL IV Push Q8H Power Barba MD TRANSFER MEDICATION RECONCILIATION COMPLETED? no, because not transferred to the floor yet REVIEW OF SYSTEMS: Constitutional: (-) fever chills sweats or weight loss Eyes: (-) negative, no amaurosis fugax, pain, blurred vision, or redness Skin: (-) negative: no rash or new or changing moles Neurology: (-) negative: no focal neurologic defect Psychiatry: (+) confusion OBJECTIVE: Most Recent Vital Signs: BP: 141 mmHg/60 mmHg (09/07/241499) Pulse: 86 (09/07/241499) Resp: 27 (09/07/241499) Temp: 37.61 C (09/07/24 1600) Temp Summary: Temp Min: 36 C (96.8 F) Max: 37.9 C (100.2 F) SpO2: 98 % (09/07/241499) O2 flow rate: 2 L/MIN (09/07/241499) Supplemental O2 Delivery: Nasal Cannula (09/07/241499) Vital Signs Last 24 Hours: Systolic BP: Most Recent Systolic BP Av.4 mmHg Min: 119 mmHg Max: 146 mmHg Temperature: Most Recent Temperature Av C Min: 36 C Max: 37.89 C Pulse: Pulse Av.2 Min: 47 Max: 103 Respirations: Resp Av Min: 14 Max: 34 SpO2: SpO2 Av.1 % Min: 91 % Max: 100 % Intake/Output Summary (Last 24 hours) at 09/07/2024 1707 Last data filed at 09/07/2024 1200 Gross per 24 hour Intake 1809.6 ml Output 1035 ml Net 774.6 ml Constitutional: no acute distress Eyes: sclera and conjunctiva normal Chest: normal respiratory effort Abdomen: nondistended Extremities: no cyanosis, normal ROM Skin: warm, dry, intact: Neuro: alert, cranial nerves intact, muscular strength 5/5 and symmetric, sensory normal, oriented to person alone LABS: Labs reviewed as indicated below: Lab results within last 7 days (see chart for full results) Units 09/07/24 0532 09/06/24 0635 09/05/24 1407 HGB g/dL 11.1* 10.0* 11.6* HCT % 35.0* 31.1* 35.6* WBC K/uL 10.64 8.64 11.61* PLT K/uL 196 147 191 Lab results within last 7 days (see chart for full results) Units 09/07/24 0532 09/06/24 0635 09/05/24 1407 SODIUM mmol/L 139 137 136 POTASSIUM mmol/L 4.4 3.7 4.3 CHLORIDE mmol/L 104 105 102 CO2 mmol/L 21* 21* 20* BUN mg/dL 17 19 20 CREATININE mg/dL 1.7* 1.7* 1.7* IMAGING: CTH 09/06/24 IMPRESSION: 1. 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 No evidence of significant midline shift. 2. Additional scattered foci of bilateral cerebral hemispheric peripheral late acute/early subacuteinfarcts, potentially embolic and better appreciated on prior MRI brain dated 09/06/2024 MRI Brain 09/06/24 IMPRESSION Evolving left temporal lobe intraparenchymal hematoma with surrounding edema and stable (overall mild) mass-effect, favoring hemorraghic transformation/secondary hematoma within a recent left MCA territory infarct. An underlying lesion such as cerebral amyloid angiopathy, AVM or mass lesion are notentirely excluded. Recommend follow-up in 6 weeks after further hematoma resolution. Additional scattered foci of bilateral cerebral hemispheric peripheral late acute/early subacute infarcts, possibly cardioembolic given distribution TTE: The examination is adequate to evaluate the referral indication. The qualitative LV ejection fraction is 30-34% (moderately reduced). There is diffuse hypokinesis to akinesis. There is no left ventricular mural thrombus. No mural thrombus was identified but the apical wall motion defect could serve as a nidus for thromboembolism. The aortic root and proximal ascending aorta are mildly enlarged. Left atrium is moderately enlarged IMPRESSION and PLAN: Active Problems: L temporal IPH - SBP <140 - Telemetry - Okay for DVT ppx - Lipid panel and HbA1c ordered, pending - Lipitor 40 daily - Can likely resume ASA after about 1 week - Will need Zio at discharge to eval for Afib - STAT CTH with change in neuro exam HTN - Norvasc 5mg daily - Lopressor 25mg BID - May need further meds pending response for SBO goal <140 Abnormal TTE - No previous to compare - Check trop - Will consult cards in the AM Delirium - Sleep protocol - Melatonin - If agitated can use seroquel Diet: soft and bite sized with thin liquids DVT ppx: heparin Dispo: PT/OT/BOX TOE CUTTER, likely placement Patient seen and discussed with Dr. Ohara. Cosigned by Sagar Ohara MD at 09/07/2024 6:01 PM EST Associated attestation - Sagar Ohara MD - 09/07/2024 6:01 PM EST I saw and evaluated the patient today. I have reviewed the resident/fellow physician note and agree. Patient more awake though does seem to have some degree of more hyperactive delirium. BP well controlled. Hold aspirin for now * Andre Olson DO - 09/07/2024 9:53 AM EST CCM - PROGRESS NOTE [facility]-[address] [address] Name: Goran Hester Location: [facility] A436/A Date: 09/06/2024 Time: 8:38 AM PATIENT DESCRIPTION: The patient is a 89 year old male with hx of admitted for spontaneous intracranial hemorrhage. Per lifeflight patient was at [facility] and experienced change in mental status with disorientation and physical agitation. The patient was imaged 09/05/24 0128 and imaging read at 1118 found to have 4.1 x 2.8 cm intraparenchymal hematoma within the left temporal lobe. He received 2g Keppra and IV magnesium for hypomagnesemia and was lifeflighted to [facility]. Examining the patient on arrival he is Alert but confused and only oriented to self. Follows commands, does not endorse any pain. Son arrived 1645 per report patient has PMH ND x5 w/ stents. Patient son reports last ND 08/2022 complicated by 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. Patient lives at [facility] living in [facility]. HPI/EVENTS OF NOTE: No acute events overnight. Afebrile and non tachycardic. Required Cardene drip to be restarted overnight for high blood pressure after labetalol was used once. Required repeat CT head yesterday which did not show any change This morning, feels well. Awake and alert and responding to stimuli and to following commands as well. Denies nausea or emesis. Does not have abdominal pain. A bit agitated on and off though. CONSTITUTIONAL DATA: BP: 128 mmHg/52 mmHg (09/07/24899) Pulse: 80 (09/07/24899) Resp: 23 (09/07/24899) Temp: 37.61 C (09/07/24799) Temp Summary: Temp Min: 36 C (96.8 F) Max: 37.9 C (100.2 F) SpO2: 96 % (09/07/24899) O2 flow rate: 2 L/MIN (09/07/24899) Supplemental O2 Delivery: Nasal Cannula (09/07/24899) Vent Settings: PHYSICAL EXAM: Constitutional: no acute distress HEENT: normocephalic awake Eyes: sclera and conjunctiva normal Neck: supple CV: RRR, non tachycardic Chest: normal respiratory effort, lungs CTABL Abdomen: soft, no TTP , nondistended Extremities: no LE edema noted Male : pimentel cath in place Skin: warm, dry, intact: Neuro: sleepy, GCS 14 following commands LABORATORY VALUES: CBC Lab Results Component Value Date/Time WBC 10.64 09/07/2024 05:32 AM HGB 11.1 (L) 09/07/2024 05:32 AM HCT 35.0 (L) 09/07/2024 05:32 AM PLT 196 09/07/2024 05:32 AM BMP Lab Results Component Value Date/Time NA 139 09/07/2024 05:32 AM POTASSIUM 4.4 09/07/2024 05:32 AM CL 104 09/07/2024 05:32 AM CO2 21 (L) 09/07/2024 05:32 AM BUN 17 09/07/2024 05:32 AM CREAT 1.7 (H) 09/07/2024 05:32 AM Ca, Mg, Phos Lab Results Component Value Date/Time CA 8.4 09/07/2024 05:32 AM MG 2.4 09/07/2024 05:32 AM PHOSPHORUS 3.4 09/07/2024 05:32 AM RADIOGRAPHIC STUDIES: reviewed Active Problems: Stroke-like symptoms (POA: Unknown) Intraparenchymal hemorrhage of brain (HCC) (POA: Unknown) POA = Present On Admission SYSTEM BASED PLAN: ASSESSMENT: Pt is a 89 year old male with hx as above admitted for altered mental status likely 2/2 intraparenchymal hemorrhage. 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 Ofirmev 1g q8 Neuro checks q1 Neurology consulted, apprediate recs Can start DVT ppx, holding anticoag for at least 4 weeks, holding asa as well. Echo Neurosurgery consulted, appreciate reccs Keppra [address] head/brain midnight Similar IPH left temporal lobe MRI done (no acute change) Speech eval done this AM and cleared Restart the following SAND BOBBER meds: Citalopram 10 daily Cyclosporine and dorzolamide eye ointment/drops PULMONARY / RESPIRATORY: No acute issues On RA CARDIOVASCULAR: PMH Mix5 w/ stents, HTN, possible hx arrythmia with loop recorder device in place NSR w/ PVCs at OSH HTN, HLD Nicardipine 5mg/hr goal <140 - currently off, per gtt protocol Labetalol 10mg q1Hr PRN SBP>140 Holding SAND BOBBER metoprolol mIVF 75cc/hr OSH trop 33.9 ECHO ordered with bubble study - done 09/06 (EF 30-34%, no evidence of thrombus, no comment on PFO) LLE with low doppler signal on DP, PT present and feels colder - JENN done 09/06, 0.5 on LLE Will order vascular surgery outpt eval - patient cannot be on any antiplt/coagulant for at least 4 weeks, holding ASA for at least a week Holding ASA, Plavix, lisinopril 5 daily Restart the following SAND BOBBER meds: Amlodipine 2.56 mg daily tomorrow Metoprolol 25 mg BID today (instead of 75 am 50 pm) Atorvastatin 40 QHS GASTROINTESTINAL / HEPATOBILIARY: No acute issues Bowel Regimen: Hold Stress Ulcer Prophylaxis: Histamine 2 Receptor Jane.. HFP Speech eval done this AM and cleared NPO - starting thin liquid with regular diet RENAL / METABOLIC / FLUIDS: EFFIE Monitor electrolytes at least daily. Replete electrolytes as indicated Strict monitoring of fluid intake and output Renal dosing and medication considerations adjusted for glomerular filtration rate Daily weights BMP, Mag, Phos, iCa BUN/Cr /.7 unknown baseline DC IVF DC Pimentel catheter Restart SAND BOBBER finasteride 5 mg daily INFECTIOUS DISEASES: Leukocytosis 11.6 Resolved ENDOCRINE: No acute issues Blood Glucose Monitoring (BGM) Goal: 140-180 Glycemic Control: No protocol CYNDI Point of Care Glucose (Bedside) Measurements Most recent: Last 24 hours: No data recorded Last 36 hours: No data recorded Last 48 hours: No data recorded Holding SAND BOBBER glipizide, metformin HEMATOLOGIC: Patient on DAPT hx Mix5 w/ stent await outside records Anemia VTE/DVT Prophylaxis: pneumatic compression devices SQH starting 09/06 PT/INR, aPTT CBC Labs show hemodilution MUSCULOSKELETAL / P.T / O.T. / MOBILITY: No acute issues PT/OT when able Speech eval - as above CODE STATUS No Code LINES / DRAINS / TUBES: LINES ALL Duration Peripheral Line Anterior;Left Wrist 20 Gauge 1 day Peripheral Line Right Antecubital 18 Gauge 1 day Urethral Catheter Regular catheter 1 day GLOBAL ISSUES: Analgesia: protocol with control Sedation: N/A Delirium/Confusion Assessment Method for ICU (CAM-ICU): CAM-ICU negative HOB Elevation: greater than 30 degress Nutrition: NPO DVT Prophylaxis: pneumatic compression devices alone due to chemoprophylaxis contraindication Stress Ulcer Prophylaxis: histamine 2 antagonist Glycemic Control: controlled - protocol Central Line Necessity Reviewed: N/A Pimentel: will remove Disposition: transfer to floor Patient's decisional capacity: does not have capacity to make decisions Communication with Patient/Family: No meeting held. Goals of Care: improve mental status Patient seen and discussed with Dr. Marlys Olson DO, MS General Surgery PGY4 [facility] Cosigned by Scott Frankel MD at 09/07/2024 5:40 PM EST Associated attestation - Scott Frankel MD - 09/07/2024 5:40 PM EST Brief synopsis: Goran Hester presented on 09/05/2024 with Left MCA stroke with hemorrhagic conversion and mass effect. Moves all extremities equally. At baseline ambulates with a walker DAPT. Problems/Injury Complex: Stroke with hemorrhagic conversion Comorbidities: Past Medical History No past medical history on file. Last 24 hrs: Cardene drip started to reach SBP goal <140 Cardene off this AM JENN 0.5 on the left GCS 14-15 this AM much more awake Neurosurg ok with Q2 hr neuro checks Focused Plan: - Ok to transfer to the floor Neurology - Q2 hr neuro checks - Outpatient vascular consult unless he develops symptoms to the left leg. - Speech eval today - DC pimentel - HSQ - PTOT - No Code Concurrent plan as below. I performed an evaluation of the patient on on the date of service indicated in the note and I havediscussed the patient's management with the advanced provider / trainee. Please refer to the attached note for the complete documented findings and plan of care. I agree with the trainee's note which was reviewed and edited in detail on rounds per my direction. Juana Frankel Surgical Critical Care / EGS / Trauma * Haider Quinn MD - 09/07/2024 8:21 AM EST NEUROLOGICAL SURGERY PROGRESS NOTE [facility]-[address] [address] Name: Goran Hester Location: [facility] Date: 09/07/2024 Time: 8:21 AM SUBJECTIVE: NAEO OBJECTIVE: Most recent vital signs: BP: 129 mmHg/49 mmHg (09/07/24699) Pulse: 80 (09/07/24699) Resp: 21 (09/07/24699) Temp: 37.61 C (09/07/24599) Temp Summary: Temp Min: 36 C (96.8 F) Max: 37.9 C (100.2 F) SpO2: 91 % (09/07/24699) O2 flow rate: 2 L/MIN (09/07/24699) Supplemental O2 Delivery: Nasal Cannula (09/07/24699) Vital signs over last 24 hours: Systolic BP: Most Recent Systolic BP Av.2 mmHg Min: 108 mmHg Max: 147 mmHg Temperature: Most Recent Temperature Av.6 C Min: 36 C Max: 37.89 C Pulse: Pulse Avg: Pulse Av.2 Min: 47 Max: 102 Respirations: Resp Av.3 Min: 14 Max: 29 SpO2: SpO2 Av.7 % Min: 91 % Max: 100 % SpO2: SpO2 Av.7 % Min: 91 % Max: 100 % FiO2%: No data recorded ICP: No data found.CPP (adult): No data found.Intake Input/Output: (last 24 hours) Intake/Output Summary (Last 24 hours) at 09/07/2024820 Last data filed at 09/07/2024699 Gross per 24 hour Intake 2502.84 ml Output 1335 ml Net 1167.84 ml Neurologic Examination Awake, alert Oriented to name and place Hard of hearing Aphasic PERRL No facial droop No pronator drift MACE to command RUE 5/5 LUE 5/5 RLE 5/5 LLE 5/5 Sensation grossly intact LABS: Blood count: Lab Results Component Value Date/Time WBC 10.64 09/07/2024 05:32 AM HGB 11.1 (L) 09/07/2024 05:32 AM HCT 35.0 (L) 09/07/2024 05:32 AM PLT 196 09/07/2024 05:32 AM Coagulation studies: Lab Results Component Value Date/Time INR 1.1 09/05/2024 02:07 PM Chemistry: Lab Results Component Value Date/Time BUN 17 09/07/2024 05:32 AM CREAT 1.7 (H) 09/07/2024 05:32 AM NA 139 09/07/2024 05:32 AM POTASSIUM 4.4 09/07/2024 05:32 AM CO2 21 (L) 09/07/2024 05:32 AM Imaging studies: My interpretation of: MRI pending Problem list: Active Problems: Stroke-like symptoms Intraparenchymal hemorrhage of brain (HCC) 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 * CLINICAL HISTORY AND PLAN: Goran Hester is a 89 year old male patient with left temporal IPH ICH score 2. 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 Will order 3 month follow up with Dr. Quinn with a repeat MRI brain w/wo IV contrast Neurosurgery will sign off, please reach out with further questions Discussed with Dr. Kai Solis MD Neurosurgery, PGY3 I saw and evaluated the patient today. I have reviewed the resident/fellow physician note and agree. * Cathy Mcneal DO - 09/06/2024 12:26 PM EST STROKE PROGRESS NOTE - Stroke / Vascular Neurology [facility]-[address] [address] Name: Goran Hester Location: [facility] A436/A Date: 09/06/2024 Time: 12:27 PM SUBJECTIVE: Goran Hester is a 89 year old patient initially seen for L IP [facility] Changes since last visit: No acute events overnight. MRI completed this AM demonstrated diffusion restriction around the IPH and some diffusion restriction in the right hemisphere as well. Pertinent past medical history: No past medical history on file. Pertinent past social history: Social History Tobacco Use Smoking status: Former Types: Cigarettes Smokeless tobacco: Not on file Substance Use Topics Alcohol use: Never Drug use: Not on file Current Medications: Note that completed medications (per the MAR) continue to display for 24 hours. Ordered medicationsto be given in the future also display. Current Facility-Administered Medications Medication Dose Route Frequency Provider [START ON 09/07/2024] Famotidine (Pepcid) inj 20 mg 20 mg IV Push Daily(AM) Scott Frankel MD hEParin inj 5,000 Units 5,000 Units Subcutaneous Q8H Shala Mosley, levETIRAcetam (Keppra) 500 mg in 100 mL ivpb *LOCKED DOSE* 500 mg IV Piggyback BID(AM/PM) Benito Solis MD magnesium sulfate 1 g in d5w 100mL LOCKED DOSE 1 g IV Piggyback Q1H Shala Mosley DO Acetaminophen (Ofirmev) inj 1,000 mg 1,000 mg Intravenous Q8H Power Barba MD chlorHEXIDINE (Periogard) 0.12 % oral rinse 15 mL 15 mL Oral mucosal membrane BID (799,1999) Power Barba MD Isolyte-S pH 7.4 infusion Intravenous Continuous Power Barba MD labetalol (Trandate) inj 10 mg 10 mg Intravenous Q1H PRN Philip Gabriel MD niCARdipine (CARDENE) 20 mg in 200 mL saline infusion 5 mg/hr Intravenous Continuous Richard Alcala MD Oral Hygiene: Mouth Swab with dentifrice Oral Q4H Limited (00;04;12;16) Power Barba MD oxygen GAS Inhalation Oxygen Power Barba MD sodium chloride 0.9 % flush peripheral lucy 3 mL 3 mL IV Push Q8H Power Barba MD OBJECTIVE: Physical Examination: Most Recent Vital Signs: BP: 131 mmHg/46 mmHg (09/06/241099) Pulse: 57 (09/06/24 1100) Resp: 15 (09/06/241099) Temp: 36 C (09/06/241199) Temp Summary: Temp Min: 36 C (96.8 F) Max: 37.4 C (99.3 F) SpO2: 99 % (09/06/241099) O2 flow rate: 2 L/MIN (09/06/24 1200) Supplemental O2 Delivery: Nasal Cannula (09/06/241199) Weight: 97.8 kg (215 lb 9.8 oz) (09/06/24 0600) Height: 175.3 cm (5' 9") (09/05/24 1400) Body mass index is 31.84 kg/m. Vital Signs Last 24 Hours: Systolic BP: Most Recent Systolic BP Av mmHg Min: 89 mmHg Max: 166 mmHg Temperature: Most Recent Temperature Av.9 C Min: 36 C Max: 37.39 C Pulse: Pulse Av.6 Min: 49 Max: 82 Respirations: Resp Av.1 Min: 14 Max: 25 SpO2: SpO2 Av.6 % Min: 88 % Max: 100 % General Examination: Constitutional: Appearance ill appearing, in bed, and encephalopathic Head/face, ears, nose, throat: normocephalic, atraumatic Cardiovascular: regular rate Psychiatric: not agitated and otherwise unable to assess, due to altered mental status Neurologic Examination: Ophthalmoscopic: deferred due to inadequate dilation Mental Status and Orientation: drowsy Memory: MOSHE 2/2 AMS Attention: diminished Knowledge:diminished Language: severe aphasia Speech: anarthric Cranial Nerves: CN 2 - did not assess CN 3, 4, 6 - no eye deviation CN 5 - not tested due to altered mental status CN 7 - no facial asymmetry CN 8 - unable to assess due to altered mental status CN 9, 10 - cough intact CN 11 - unable to assess due to AMS CN 12 - tongue protrudes midline Sensory: withdraw to noxious in all 4 extremities Coordination: unable to assess due to AMS Gait: deferred due to fall risk Muscle Tone: normal Muscle exam: limited examination due to mental status, moving all extremities symmetrically and spontaneously Reflexes: did not assess [employer] [place] [employer] Stroke Scale: 1A. LOC: 1 1B. Question: 2 1C. Commands: 2 2. Gaze: 0 3. Visual Suarez: 0 4. Facial Palsy: 0 5A. Arm Left: 0 5B. Arm Right: 0 6A. Leg Left: 0 6B. Leg Right: 0 7. Ataxia: 0 8. Sensory: 0 9. Aphasia: 3 10. Dysarthria: 2 11. Extinction: 0 Total: 10 I have reviewed Radiologic Studies and noted significant findings as follows: MRI brain 09/06/24 IMPRESSION: 1. Expected evolution of the left temporal lobe intraparenchymal hematoma with surrounding edema and stable mass-effect. An underlying lesion, including cerebral amyloid angiopathy, is not entirely excluded. Recommend follow-up in 6 weeks after the hematoma has resolved. 2. Scattered foci of restricted diffusion within the bilateral temporal, parietal and left frontal cortices with mild associated T2/FLAIR signal hyperintensity. Findings are concerning for acute infarcts, possibly cardioembolic, given the distribution CTA H/N 09/06/24 IMPRESSION 1. A grossly similar intraparenchymal hemorrhage in the left temporal lobe with surrounding edema, suggestive of NC territory infarct with hemorrhagic transformation. No definite abnormal enhancementor arteriovenous malformation. 2. 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 If there is clinical concern for dissection, consider MR angiography of the neck for further evaluation 3. 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 4. Atherosclerotic disease involving the cavernous internal carotid arteries with resultant [id number] 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 5. Multiple prominent mediastinal lymph nodes, which could represent reactive lymph nodes. I have reviewed the following Diagnostic Tests and noted significant findings as follows: TTE w/o bubble study: pending LABS: Labs reviewed as indicated below: Lab results within last 7 days (see chart for full results) Units 09/06/24 0635 09/05/24 1407 HGB g/dL 10.0* 11.6* HCT % 31.1* 35.6* WBC K/uL 8.64 11.61* PLT K/uL 147 191 Lab results within last 7 days (see chart for full results) Units 09/06/24 0635 09/05/24 1407 SODIUM mmol/L 137 136 POTASSIUM mmol/L 3.7 4.3 CHLORIDE mmol/L 105 102 CO2 mmol/L 21* 20* BUN mg/dL 19 20 CREATININE mg/dL 1.7* 1.7* IMPRESSION: Patient is a 89yo M with PMHx of HTN, CAD, hx of ND s/p stenting that presented with L temporal IPHafter [facility] Given MRI findings of surrounding ischemic burden, mostlikely etiology of bleed is ischemic stroke with hemorrhagic transformation. Appropriate to continue patient on telemetry and, if unrevealing, patient should be discharged with Zio to eval for afib. Given size of the hemorrhage, recommend approaching AP/AC cautiously, not starting aspirin before about a week out from the bleed. RECOMMENDATIONS/PLAN: L temporal IPH - SBP <140 - Telemetry - Okay for DVT ppx - Please check lipid panel and HbA1c - Lipitor 40 daily - Can likely resume ASA after about 1 weeks - Will need Zio at discharge to eval for Afib - STAT CTH with change in neuro exam Stroke Checklist: DVT Prophylaxis: receiving chemical and mechanical Antithrombotic Therapy: contraindicated, reason: IPH Atrial Fibrillation or Flutter: no Statin: please order the following statin or document contraindication to: Lipitor 40 Stroke Education: personal risk factors for stroke could not be provided due to: patient has altered mental status, patient has aphasia, and no familyat bedside Rehab Therapy Plan: O.T., P.T., and Speech Patient Has Decision Making Capacity: no, reason: aphasia Code Status: No Code The patient was examined and was discussed with Dr. Ohara. Cosigned by Sagar Ohara MD at 09/06/2024 6:06 PM EST Associated attestation - Sagar Ohara MD - 09/06/2024 6:06 PM EST I saw and evaluated the patient today. I have reviewed the resident/fellow physician note and agree. MRI consistent with embolic appearing insults in both hemispheres with likely hemorrhagic transformation. Hold off on initiating aspirin at this time. Recommend TTE, tight BP control--preferably lessthan 140 systolic. * Andre Olson DO - 09/06/2024 8:38 AM EST CCM - PROGRESS NOTE [facility]-[address] [address] Name: Goran Hester Location: [facility] A436/A Date: 09/06/2024 Time: 8:38 AM PATIENT DESCRIPTION: The patient is a 89 year old male with hx of admitted for spontaneous intracranial hemorrhage. Per lifeflight patient was at [place] and experienced change in mental status with disorientation and physical agitation. The patient was imaged 09/05/24 0128 and imaging read at 1118 found to have 4.1 x 2.8 cm intraparenchymal hematoma within the left temporal lobe. He received 2g Keppra and IV magnesium for hypomagnesemia and was lifeflighted to [facility]. Examining the patient on arrival he is Alert but confused and only oriented to self. Follows commands, does not endorse any pain. Son arrived 1645 per report patient has PMH ND x5 w/ stents. Patient son reports last ND 08/2022 complicated by 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. Patient lives at [facility] in [facility]. HPI/EVENTS OF NOTE: No acute events overnight. CT done, MRI pending. Afebrile and non tachycardic. Sats well on RA. This AM, sleepy but able to resist eye movement and LE movement on stimulation as well. Nicardipineinfusion started overnight for high BP and is off this AM per titration. CONSTITUTIONAL DATA: BP: 116 mmHg/39 mmHg (09/06/24699) Pulse: 59 (09/06/24699) Resp: 16 (09/06/24699) Temp: 36.11 C (09/06/24799) Temp Summary: Temp Min: 36.1 C (97 F) Max: 37.4 C (99.3 F) SpO2: 97 % (09/06/24699) O2 flow rate: 2 L/MIN (09/06/24699) Supplemental O2 Delivery: Nasal Cannula (09/06/24699) Vent Settings: PHYSICAL EXAM: Constitutional: no acute distress HEENT: normocephalic sleepy Eyes: sclera and conjunctiva normal Neck: supple CV: RRR, non tachycardic Chest: normal respiratory effort, lungs clear to auscultation and percussion Abdomen: soft, no TTP , nondistended Extremities: no LE edema noted Male : normal external genitalia, pimentel cath in place Skin: warm, dry, intact: Neuro: sleepy, GCS 12 (3/4/5) LABORATORY VALUES: CBC Lab Results Component Value Date/Time WBC 8.64 09/06/2024 06:35 AM HGB 10.0 (L) 09/06/2024 06:35 AM HCT 31.1 (L) 09/06/2024 06:35 AM PLT 147 09/06/2024 06:35 AM BMP Lab Results Component Value Date/Time NA 137 09/06/2024 06:35 AM POTASSIUM 3.7 09/06/2024 06:35 AM CL 105 09/06/2024 06:35 AM CO2 21 (L) 09/06/2024 06:35 AM BUN 19 09/06/2024 06:35 AM CREAT 1.7 (H) 09/06/2024 06:35 AM Ca, Mg, Phos Lab Results Component Value Date/Time CA 8.1 (L) 09/06/2024 06:35 AM MG 1.9 09/05/2024 02:07 PM PHOSPHORUS 3.3 09/05/2024 02:07 PM RADIOGRAPHIC STUDIES: reviewed Active Problems: Stroke-like symptoms (POA: Unknown) Intraparenchymal hemorrhage of brain (HCC) (POA: Unknown) POA = Present On Admission SYSTEM BASED PLAN: ASSESSMENT: Pt is a 89 year old male with hx as above admitted for altered mental status likely 2/2 intraparenchymal hemorrhage. 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 Ofirmev 1g q8 Neuro checks q1 Neurology consulted, apprediate recs Can start DVT ppx, holding anticoag for at least 4 weeks, holding asa as well. echo Neurosurgery consulted, appreciate reccs Keppra 500 bid ordered this AM Repeat CT head/brain midnight Similar IPH left temporal lobe MRI done (no acute change) PULMONARY / RESPIRATORY: No acute issues On RA CARDIOVASCULAR: PMH Mix5 w/ stents, HTN, possible hx arrythmia with loop recorder device in place NSR w/ PVCs at OSH Nicardipine 5mg/hr goal <140 - currently off, per gtt protocol Labetalol 10mg q1Hr PRN SBP>140 Holding SAND BOBBER metoprolol mIVF 75cc/hr OSH trop 33.9 ECHO ordered with bubble study LLE with low doppler signal on DP, PT present and feels colder - will get JENN GASTROINTESTINAL / HEPATOBILIARY: No acute issues NPO Bowel Regimen: Hold Stress Ulcer Prophylaxis: Histamine 2 Receptor Jane.. HFP RENAL / METABOLIC / FLUIDS: EFFIE Monitor electrolytes at least daily. Replete electrolytes as indicated Strict monitoring of fluid intake and output Renal dosing and medication considerations adjusted for glomerular filtration rate Daily weights BMP, Mag, Phos, iCa BUN/Cr 21/1.7 unknown baseline INFECTIOUS DISEASES: Leukocytosis 11.6 Resolved ENDOCRINE: No acute issues Blood Glucose Monitoring (BGM) Goal: 140-180 Glycemic Control: No protocol CYNDI Point of Care Glucose (Bedside) Measurements Most recent: Last 24 hours: No data recorded Last 36 hours: No data recorded Last 48 hours: No data recorded HEMATOLOGIC: Patient on DAPT hx Mix5 w/ stent await outside records Anemia VTE/DVT Prophylaxis: pneumatic compression devices alone due to chemoprophylaxis contraindication PT/INR, aPTT CBC Labs show hemodilution MUSCULOSKELETAL / P.T / O.T. / MOBILITY: No acute issues PT/OT when able Speech eval CODE STATUS No Code LINES / DRAINS / TUBES: LINES ALL Duration Peripheral Line Anterior;Left Wrist 20 Gauge <1 day Peripheral Line Right Antecubital 18 Gauge <1 day Urethral Catheter Regular catheter <1 day GLOBAL ISSUES: Analgesia: protocol with control Sedation: N/A Delirium/Confusion Assessment Method for ICU (CAM-ICU): CAM-ICU negative HOB Elevation: greater than 30 degress Nutrition: NPO DVT Prophylaxis: pneumatic compression devices alone due to chemoprophylaxis contraindication Stress Ulcer Prophylaxis: histamine 2 antagonist Glycemic Control: controlled - protocol Central Line Necessity Reviewed: N/A Pimentel: reviewed and needed Disposition: keep in ICU Patient's decisional capacity: has capacity to make decisions Communication with Patient/Family: No meeting held. Goals of Care: improve respiratory status, stabilize hemodynamic status, improve mental status to baseline, and decrease pain and discomfort Patient seen and discussed with Dr. Marlys Olson DO, MS General Surgery PGY4 [facility] Cosigned by Scott Frankel MD at 09/07/2024 2:12 PM EST Associated attestation - Scott Frankel MD - 09/07/2024 2:12 PM EST Brief synopsis: Goran Hester presented on 09/05/2024 with Left MCA stroke with hemorrhagic conversion and mass effect. Moves all extremities equally. At baseline ambulates with a walker DAPT. Problems/Injury Complex: Stroke with hemorrhagic conversion Comorbidities: Past Medical History No past medical history on file. Last 24 hrs: Rpt head CT showed stable left temporal hemorrhagic conversion and mild local mass effect. GCS 12 Moving all 4 extremities to pain not obeying commands. Started on Keppra this AM MRI ?amyloid angiopathy, appropriate evolution of the stroke scattered foci c/w cardio-embolic disease. Focused Plan: - Q1 Neuro checks - ECHO with Bubble - looking for cardioembolic source - JENN - hold asa 1 week - OK for DVT prophylaxis - Q1 Neuro checks - SBP goal <140 - Appreciate neurosurgery and the stroke teams recommendations. Concurrent plan as below. I performed an evaluation of the patient on on the date of service indicated in the note and I havediscussed the patient's management with the advanced provider / trainee. Please refer to the attached note for the complete documented findings and plan of care. I have personally provided 35 minutes of critical care time exclusive of time spent on separately billable procedures. This time includes review of laboratory data, radiology results and monitoring for potential decompensation. Any interventions performed are as documented below. Upon my evaluation, this patient had a high probability of imminent or life- threatening deterioration due to diagnostic services - neurologic failure and therapeutic services - frequent evaluation and titration of therapies, which required my direct attention, intervention, and personal management. I agree with the trainee's note which was reviewed and edited in detail on rounds per my direction. Juana Frankel Surgical Critical Care / EGS / Trauma * Haider Quinn MD - 09/06/2024 7:52 AM EST NEUROLOGICAL SURGERY PROGRESS NOTE [facility]-[address] [address] Name: Goran Hester Location: [facility] A436/A Date: 09/06/2024 Time: 7:52 AM SUBJECTIVE: NAEO OBJECTIVE: Most recent vital signs: BP: 116 mmHg/39 mmHg (09/06/24 0700) Pulse: 59 (02/11/25 0700) Resp: 16 (09/06/24699) Temp: 36.78 C (09/06/24599) Temp Summary: Temp Min: 36.5 C (97.7 F) Max: 37.4 C (99.3 F) SpO2: 97 % (09/06/24699) O2 flow rate: 2 L/MIN (09/06/24699) Supplemental O2 Delivery: Nasal Cannula (09/06/24699) Vital signs over last 24 hours: Systolic BP: Most Recent Systolic BP Av.3 mmHg Min: 89 mmHg Max: 166 mmHg Temperature: Most Recent Temperature Av.1 C Min: 36.5 C Max: 37.39 C Pulse: Pulse Avg: Pulse Av.5 Min: 55 Max: 82 Respirations: Resp Av.5 Min: 15 Max: 25 SpO2: SpO2 Av.3 % Min: 88 % Max: 100 % SpO2: SpO2 Av.3 % Min: 88 % Max: 100 % FiO2%: No data recorded ICP: No data found.CPP (adult): No data found.Intake Input/Output: (last 24 hours) Intake/Output Summary (Last 24 hours) at 09/06/2024 0752 Last data filed at 09/06/2024 07 Gross per 24 hour Intake 1471.93 ml Output 1055 ml Net 416.93 ml Neurologic Examination Awake, alert Oriented to name Hard of hearing Aphasic PERRL No facial droop No pronator drift MACE to command RUE 5/5 LUE 5/5 RLE 5/5 LLE 5/5 Sensation grossly intact LABS: Blood count: Lab Results Component Value Date/Time WBC 8.64 09/06/2024 06:35 AM HGB 10.0 (L) 09/06/2024 06:35 AM HCT 31.1 (L) 09/06/2024 06:35 AM PLT 147 09/06/2024 06:35 AM Coagulation studies: Lab Results Component Value Date/Time INR 1.1 09/05/2024 02:07 PM Chemistry: Lab Results Component Value Date/Time BUN 20 09/05/2024 02:07 PM CREAT 1.7 (H) 09/05/2024 02:07 PM NA 136 09/05/2024 02:07 PM POTASSIUM 4.3 09/05/2024 02:07 PM CO2 20 (L) 09/05/2024 02:07 PM Imaging studies: My interpretation of: MRI pending Problem list: Active Problems: Stroke-like symptoms Intraparenchymal hemorrhage of brain (HCC) Resolved Problems: * No resolved hospital problems. * CLINICAL HISTORY AND PLAN: Goran Hester is a 89 year old male patient with left temporal IPH ICH score 2. 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 Q1 neurochecks MRI brain w/wo IV contrast pending Keppra 500mg BID Hold anticoagulation/antiplatelets Mechanical DVT ppx Ok for SQH this afternoon Further recs pending MRI Discussed with Dr. Kai Solis MD Neurosurgery, PGY3 I saw and evaluated the patient today. I have reviewed the resident/fellow physician note and agree. documented in this encounter H&P Notes * Richard Alcala MD - 09/05/2024 1:50 PM EST CCM - PROGRESS NOTE [facility]-[address] [id number] Name: Goran Hester Location: [facility] A436/[id number] Date: 09/05/2024 Time: 3:02 PM Date of admission: 09/05/2024 Hospital length of stay: 0 days Subjective PATIENT DESCRIPTION: The patient is a 89 year old male with hx of admitted for spontaneous intracranial hemorrhage. Per lifeflight patient was at [facility] and experienced change in mental status with disorientation and physical agitation. The patient was imaged 09/05/24 0128 and imaging read at 1118 found to have 4.1 x 2.8 cm intraparenchymal hematoma within the left temporal lobe. He received 2g Keppra and IV magnesium for hypomagnesemia and was lifeflighted to [facility]. Examining the patient on arrival he is Alert but confused and only oriented to self. Follows commands, does not endorse any pain. Son arrived 1645 per report patient has PMH ND x5 w/ stents. Patient son reports last ND 08/2022 complicated by 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. Patient lives at [facility] in [facility]. Called patient PCP awaiting records by fax EVENTS OF NOTE: 09/05/24 Admission to SICU as transfer from [facility] for [facility] ROS: Patient confused, intermittently answering questions appropriately. Objective CONSTITUTIONAL DATA / OBJECTIVE: Most Recent Vitals: BP: 139 mmHg/54 mmHg (09/05/241414) Pulse: 71 (09/05/24 141) Resp: 21 (09/05/241414) Temp: 37.28 C (09/05/24 1400) Temp Summary: Temp Min: 37.3 C (99.1 F) Max: 37.3 C (99.1 F) SpO2: 96 % (09/05/241414) O2 flow rate: 2 L/MIN (09/05/241414) Supplemental O2 Delivery: Nasal Cannula (09/05/241414) Average Vitals Overnight: Pulse Av.3 Min: 68 Max: 71 No data recorded Most Recent Systolic BP Av.5 mmHg Min: 139 mmHg Max: 142 mmHg Most Recent Diastolic BP Av.5 mmHg Min: 54 mmHg Max: 73 mmHg Resp Av.7 Min: 16 Max: 25 Most Recent Temperature Av.3 C Min: 37.28 C Max: 37.28 C SpO2 Av.3 % Min: 88 % Max: 96 % Vital Signs Last 24 Hours: SBP: Most Recent Systolic BP Av.5 mmHg Min: 139 mmHg Max: 142 mmHg Temp: Most Recent Temperature Av.3 C Min: 37.28 C Max: 37.28 C Pulse: Pulse Av.3 Min: 68 Max: 71 Respirations: Resp Av.7 Min: 16 Max: 25 SpO2: SpO2 Av.3 % Min: 88 % Max: 96 % Intake & Output Summary (Last 24 hours): No intake or output data in the 24 hours ending 09/05/24 1502 Height & Weight: Height: 175.3 cm (5' 9") (09/05/24 1400) Weight change: There is no height or weight on file to calculate BMI. Physical Exam Constitutional: Appearance: He is obese. HENT: Head: Normocephalic and atraumatic. Mouth/Throat: Mouth: Mucous membranes are moist. Pharynx: Oropharynx is clear. No oropharyngeal exudate. Eyes: Extraocular Movements: Extraocular movements intact. Conjunctiva/sclera: Conjunctivae normal. Pupils: Pupils are equal, round, and reactive to light. Cardiovascular: Rate and Rhythm: Normal rate and regular rhythm. Pulses: Normal pulses. Heart sounds: Normal heart sounds. Pulmonary: Effort: Pulmonary effort is normal. Breath sounds: Normal breath sounds. Abdominal: General: There is distension. Palpations: Abdomen is soft. Tenderness: There is no abdominal tenderness. There is no guarding. Hernia: No hernia is present. Musculoskeletal: General: No tenderness. Normal range of motion. Cervical back: Normal range of motion. Skin: General: Skin is warm and dry. Capillary Refill: Capillary refill takes less than 2 seconds. Neurological: Mental Status: He is alert. He is disoriented. Comments: Oriented to person only. States year 1944 Laboratory Values: I have personally reviewed the results as of 3:02 PM on 09/05/2024 -- Brief labs below include the 7 most recent results over the past week. Blood Gas: No results in the last 7 days - inpatent use only Blood Chemistry: Lab results within last 7 days (see chart for full results) Units 09/05/24 1407 SODIUM mmol/L 136 POTASSIUM mmol/L 4.3 CHLORIDE mmol/L 102 CO2 mmol/L 20* EGFR mL/min 39* BUN mg/dL 20 CREATININE mg/dL 1.7* GLUCOSE mg/dL 169* CALCIUM mg/dL 8.8 Magnesium mg/dL 1.9 Phosphorus mg/dL 3.3 ANION GAP mmol/L 14 Hematology: Lab results within last 7 days (see chart for full results) Units 09/05/24 1407 WBC K/uL 11.61* HGB g/dL 11.6* HCT % 35.6* PLT K/uL 191 MCV fL 88.1 No results in the last 7 days - inpatent use only Cardiac Studies: No results in the last 7 days - inpatent use only Coagulation Studies: Lab results within last 7 days (see chart for full results) Units 09/05/24 1407 Prothrombin Time seconds 14.3 INR 1.1 aPTT seconds 30 Liver Function Panel: Lab results within last 7 days (see chart for full results) Units 09/05/24 1407 Albumin g/dL 4.1 Protein g/dL 6.8 Bilirubin, Total mg/dL 0.6 Bilirubin, Direct mg/dL 0.2 AST U/L 17 ALT U/L 15 Alkaline Phosphatase U/L 85 Infectious Studies: No results in the last 7 days - inpatent use only Recent Cultures (2 Weeks) No lab values to display. No results in the last 7 days - inpatent use only Toxicology Studies No results in the last 7 days - inpatent use only No results in the last 7 days - inpatent use only Radiographic Studies: I have personally reviewed the results as of 3:02 PM on 09/05/2024 CT HEAD/BRAIN WO CONTRAST Result Date: 09/05/2024 IMPRESSION This impression is a preliminary interpretation by the resident and is subject to changes following review by an attending radiologist. Be sure to review a final report to be signed by a staff radiologist for any discrepancies with this preliminary interpretation. Acute 4.1 x 2.6 x 3.2 cm intraparenchymal hematoma in the left superior temporal lobe. No midline shift or downward herniation. 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 OSH CT head w/o contrast 09/05/2024 FINDINGS: There is an acute appearing 4.1 x 2.8 cm intraparenchymal hematoma within the left temporal lobe on image 12 of 32. Adjacent hypodensity within the left temporal and parietal lobes and possibly the left occipital lobe represents edema. There is mild mass effect with mild compression of the left lateral vesicle. There is no significant midline shift. There is no evidence for herniation. Basal cisterns are patent. Encephalomalacia within the right occipital lobe is suggestive of an old infarct. There are no calvarial fractures. Frontal sinuses are opacified, likely IMPRESSION: Acute appearing 4.1 x 2.8 cm intraparenchymal hematoma within the left temporal lobe. Associated edema with mild mass effect. No significant midline shift. No evidence for herniation. This could represent a spontaneous bleed, possibly related to amyloid angiopathy. However given the pattern of edema, an underlying MCA infarct with hemorrhagic conversion could appear similar. Imaging follow-up to ensure resolution is recommended to exclude the less likely possibility of an underlying lesion. Findings discussed with Dr. Duarte at time of dictation. OSH CXR 09/05/24 10:01 FINDINGS: Cardiac silhouette is enlarged. Loop recorder device. Pulmonary vascular congestion with interstitial coarsening and ill-defined mid to lower lung zone predominant airspace opacities. Small pleural effusions. No pneumothorax. Cholecystectomy. Bones appear grossly intact. IMPRESSION: 1. Cardiomegaly with pulmonary edema. 2. Small pleural effusions with bibasilar densities, likely atelectatic. A superimposed pneumonitisconsidered less likely. CT head w/o contrast 09/05/24 14:30 IMPRESSION: Suspected left MCA-territory ischemic infarction with stable left temporal hemorrhagic conversion and mild local mass effect. MRI would be of benefit for further evaluation Assessment & Plan Active Problems: Stroke-like symptoms (POA: Unknown) POA = Present On Admission ASSESSMENT: Pt is a 89 year old male with hx as above admitted for altered mental status likely 2/2 intraparenchymal hemorrhage. 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 Ofirmev 1g q8 Neuro checks q1 Neurosurgery consulted, appreciate reccs Repeat CT head/brain midnight PULMONARY / RESPIRATORY: No acute issues On LFNC CARDIOVASCULAR: PMH Mix5 w/ stents, HTN, possible hx arrythmia with loop recorder device in place NSR w/ PVCs at OSH Cardene 5mg/hr goal <140 Labetalol 10mg q1Hr PRN SBP>140 Holding SAND BOBBER metoprolol mIVF 75cc/hr OSH trop 33.9 GASTROINTESTINAL / HEPATOBILIARY: No acute issues NPO Bowel Regimen: Hold Stress Ulcer Prophylaxis: Histamine 2 Receptor Jane.. HFP RENAL / METABOLIC / FLUIDS: EFFIE Monitor electrolytes at least daily. Replete electrolytes as indicated Strict monitoring of fluid intake and output Renal dosing and medication considerations adjusted for glomerular filtration rate Daily weights BMP, Mag, Phos, iCa BUN/Cr 21/1.7 unknown baseline INFECTIOUS DISEASES: Leukocytosis 11.6 ENDOCRINE: No acute issues Blood Glucose Monitoring (BGM) Goal: 140-180 Glycemic Control: No protocol CYNDI Point of Care Glucose (Bedside) Measurements Most recent: Last 24 hours: No data recorded Last 36 hours: No data recorded Last 48 hours: No data recorded HEMATOLOGIC: Patient on DAPT hx Mix5 w/ stent await outside records Anemia VTE/DVT Prophylaxis: pneumatic compression devices alone due to chemoprophylaxis contraindication PT/INR, aPTT TEG CBC MUSCULOSKELETAL / P.T / O.T. / MOBILITY: No acute issues PT/OT when able LINES / DRAINS / TUBES: LINES None GLOBAL ISSUES: Analgesia: protocol with control Sedation: N/A Delirium/Confusion Assessment Method for ICU (CAM-ICU): CAM-ICU negative HOB Elevation: greater than 30 degress Nutrition: NPO DVT Prophylaxis: pneumatic compression devices alone due to chemoprophylaxis contraindication Stress Ulcer Prophylaxis: histamine 2 antagonist Glycemic Control: not controlled - protocol Central Line Necessity Reviewed: N/A Pimentel: N/A Disposition: keep in ICU Reported SAND BOBBER meds: Metoprolol succinate 50mg qHS Dorzolamide eye drops Cyclosporine eye drops Melatonin 5mg qHS List of consulted services: ADULT PHYSICAL THERAPY CONSULT IP ADULT OCCUPATIONAL THERAPY CONSULT IP CARE MANAGEMENT CONSULT IP NEUROSURGERY CONSULT IP Patient's decisional capacity: does not have capacity to make decisions Communication with Patient/Family: Spoke with son at patient bedside 16:45 Goals of Care: stabilize hemodynamic status and improve mental status to baseline Patient was seen and discussed on rounds with MD Richard Wayne MD Resident PGY-4 Cosigned by Scott Frankel MD at 09/06/2024 8:41 AM EST Associated attestation - Scott Frankel MD - 09/06/2024 8:41 AM EST Brief synopsis: Goran Hester presented on 09/05/2024 with Left MCA stroke with hemorrhagic conversion and mass effect. Moves all extremities equally. At baseline ambulates with a walker DAPT. Problems/Injury Complex: Stroke with hemorrhagic conversion Comorbidities: Past Medical History No past medical history on file. Last 24 hrs: Rpt head CT showed stable left temporal hemorrhagic conversion and mild local mass effect. Neurologic exam remains unchanged. Focused Plan: - Rpt head CT - Q1 Neuro checks - MRI brain w/wo contrast to evaluate for underlying lesion - SBP goal <140 - Appreciate neurosurgery and the stroke teams recommendations. Concurrent plan as below. I performed an evaluation of the patient on on the date of service indicated in the note and I havediscussed the patient's management with the advanced provider / trainee. Please refer to the attached note for the complete documented findings and plan of care. I have personally provided 35 minutes of critical care time exclusive of time spent on separately billable procedures. This time includes review of laboratory data, radiology results and monitoring for potential decompensation. Any interventions performed are as documented below. Upon my evaluation, this patient had a high probability of imminent or life- threatening deterioration due to diagnostic services - neurologic failure and therapeutic services - frequent evaluation and titration of therapies, which required my direct attention, intervention, and personal management. I agree with the trainee's note which was reviewed and edited in detail on rounds per my direction. uJana Frankel Surgical Critical Care / EGS / Trauma documented in this encounter Procedure Notes * Lane Crain MD - 09/08/2024 9:13 PM ESTAssociated Order(s): EKG REASON FOR STUDY: Notify provider if obtaining EKG;Chest pain CONCLUSIONS: Normal sinus rhythm High QRS voltage may be normal variant or due to lve ( Mo product ) ST & T wave abnormality, consider lateral ischemia Abnormal ECG When compared with ECG of 08-Sep-2024 17:14, T wave inversion now evident in Lateral leads Ventricular Rate: 79 Atrial Rate: 79 VA Interval: 158 QRS Duration: 112 QT/QTc: 438/502 ms P-R-T Vancleve: 38 : 8 : 120 degrees * Lane Crain MD - 09/08/2024 5:14 PM ESTAssociated Order(s): EKG REASON FOR STUDY: Notify provider if obtaining EKG;Chest pain CONCLUSIONS: Poor data quality, interpretation may be adversely affected Normal sinus rhythm High QRS voltage may be normal variant or due to lve ( [place] product ) Nonspecific ST abnormality Prolonged QT interval or tu fusion, consider myocardial disease, electrolyte imbalance, or drug effects Abnormal ECG When compared with ECG of 07-Sep-2024 13:25, Premature ventricular complexes are no longer Present Criteria for Septal infarct are no longer Present Ventricular Rate: 84 Atrial Rate: 84 VA Interval: 170 QRS Duration: 114 QT/QTc: 412/486 ms P-R-T Vancleve: 36 : -12 : 78 degrees * Sumanth Teresa MD - 09/07/2024 1:25 PM ESTAssociated Order(s): EKG REASON FOR STUDY: measure QTc;measure QTc;Electrolyte abnorma CONCLUSIONS: Sinus rhythm with occasional Premature ventricular complexes High QRS voltage may be normal variant or due to lve ( Mo product ) Septal infarct , age undetermined Abnormal ECG When compared with ECG of 05-Sep-2024 14:09, Premature ventricular complexes are now Present Septal infarct is now Present Ventricular Rate: 86 Atrial Rate: 86 VA Interval: 164 QRS Duration: 106 QT/QTc: 416/497 ms P-R-T Vancleve: 35 : -8 : 55 degrees * Meet Watson DO - 09/05/2024 2:09 PM ESTAssociated Order(s): EKG REASON FOR STUDY: Notify provider if obtaining EKG;Chest pain CONCLUSIONS: Normal sinus rhythm Possible inferior infarct Ventricular Rate: 71 Atrial Rate: 71 VA Interval: 174 QRS Duration: 104 QT/QTc: 434/471 ms P-R-T Vancleve: 45 : 0 : 67 degrees documented in this encounter Consult Notes * Damaris Morgan MD - 09/13/2024 2:24 PM ESTAssociated Order(s): PSYCHIATRY CONSULT IP INITIAL PSYCHIATRY CONSULT NOTE Patient location: HOSPITAL. I was not in a hospital or clinic location. After connecting through telev[employer]ellucid Analyticso, patient was identified by name and date of and/or wristband checked. Patient (or authorized legal risk control representative) was then informed that this was a Telemedicine visit and was being conducted confidentially over secure lines. My office door was closed. No one else was in the room with me.. Patient acknowledged consent and understanding of privacy and security of the Telemedicine visit and gave permission to have a telemedicine presenter stay in the room in order to assist with the history and to conduct the exam as needed. I informed the patient that I have reviewed their record in [facility] and presented the opportunity for them to ask any questions regarding the visit today. The patient agreed to participate. Date of Consult: 09/13/2024 Subjective HISTORY OF PRESENT ILLNESS (HPI): The reason for psychiatric consultation is hyperactive delirium and medication management. Patient reports that he is in the hospital for "stroke" and is pleasant but somewhat confused on evaluation with me. Hard of hearing and nurse is at bedside assisting by repeating words for him at times. He reports that he is sleeping and eating well. When asked about activities he enjoys, talks about participating in sports and says he was playing tennis a few months ago - pt is 89 and reportedly used walker at home so I'm not clear that this is accurate. He states he takes celexa for memory only but was taken off of this medication (chart review indicates depression and mild OCD). 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 I don't know." Attention: Able to do the days of the week backwards Memory: 3/3 registration but then 0/3 short-term recall even with category cue Per nurse in room, 2 days ago pt was confused, trying to get out of bed, non- redirectable, but has been more awake and alert today, able to follow commands. PSYCHIATRIC REVIEW OF SYSTEMS: comprehensive quantitative ROS was undertaken and noted in HPI as above PAST PSYCHIATRIC HISTORY Hx of depression on celexa I have reviewed the patient's allergies, past history, and medications. Hospital Medications Current IP Meds (From admission, onward) Ordered Status Route Frequency Start Stop 09/13/24 1051 metoprolol succinate XL (toPROL XL) tab 75 mg Verified OR Daily(AM) 09/14/24 0900 -- 09/13/24 1048 sodium bicarbonate tab 650 mg Verified OR TID(AM/NOON/HS) 09/13/24 1200 -- 09/13/24 0928 metoprolol succinate XL (toPROL XL) tab 25 mg Completed OR ONCE 09/13/24 1000 09/13/24 0949 09/13/24 0701 Iron Sucrose (Venofer) 300 mg in NSS 250 mL ivpb Dispensed IVPB Daily(AM) 09/13/24 0900 09/16/24 0859 09/12/24 1255 aspirin chew tab 81 mg Dispensed OR Daily(AM) 09/12/24 1330 -- 09/11/24 0958 Lisinopril (Prinivil) tab 10 mg Dispensed OR Daily(AM) 09/12/24 0900 -- 09/12/24 0716 Furosemide (Lasix) inj 40 mg Dispensed IV PUSH BID (0900, 1600) 09/12/24 0900 -- 09/11/24 0540 insulin aspart (NovoLOG) inj Dispensed SC W/MEALS AND HS 09/11/24 1200 -- 09/11/24 1000 tamsulosin (Flomax) cap 0.4 mg Dispensed OR Daily(AM) 09/11/24 1030 -- 09/11/24 0405 Acetaminophen (Tylenol) tab 650 mg Dispensed OR Q6H PRN 09/11/24 0405 -- 09/10/24 1232 melatonin tab 6 mg Dispensed OR HS 09/10/24 2200 -- 09/10/24 1230 citalopram (Celexa) oral soln 10 mg Dispensed OR Daily(AM) 09/10/24 1315 -- 09/10/24 1234 Finasteride (Proscar) tab 5 mg Dispensed OR Daily(AM) 09/10/24 1315 -- 09/09/24 1245 Polyethylene Glycol 3350 (Miralax) oral powder 17 g Dispensed OR Daily(AM) 09/10/24 0900 -- 09/09/24 1245 senna (Senokot) 1 Tablet Dispensed OR Daily(AM) 09/10/24 0900 -- 09/09/24 1245 Docusate Sodium (Colace) oral liquid 100 mg Dispensed OR BID (.AM/PM) 09/09/24 2100 -- 09/08/24 1133 oxygen GAS Placed in "And" Linked Group Verified IN OXYGEN 09/08/24 1600 -- 09/08/24 1003 glucose chew tab 16 g Verified OR PRN 09/08/24 1002 -- 09/08/24 1003 Glucose (Glutose 15) 40 % gel 15 g of glucose Verified OR PRN 09/08/24 1002 -- 09/08/24 1003 Glucose (Glutose 15) 40 % gel 30 g of glucose Verified OR PRN 09/08/24 1002 -- 09/08/24 1003 dextrose 50% inj 25 mL Verified IV PUSH PRN 09/08/24 1002 -- 09/08/24 1003 dextrose 50% inj 50 mL Verified IV PUSH PRN 09/08/24 1002 -- 09/08/24 1003 glucagon (Glucagen) inj 1 mg Verified IM PRN 09/08/24 1002 -- 09/07/24 1309 dorzolamide (Trusopt Ocumeter Plus) 2 % ophthalmic solution 1 Drop Dispensed OU BID (.AM/PM) 09/07/24 2100 -- 09/07/24 1815 labetalol (Trandate) inj 10 mg Dispensed IV Q1H PRN 09/07/24 1815 -- 09/07/24 1457 albuterol-ipratropium (Duoneb) inhalation solution 3 mL Dispensed NEBULIZER Q4H PRN 09/07/24 1457 -- 09/07/24 1309 Benzonatate (Tessalon Perles) cap 100 mg Dispensed OR Q8H PRN 09/07/24 1307 -- 09/06/24 1607 cycloSPORINE (Restasis) 0.05 % ophthalmic emulsion 1 Drop Dispensed OU BID (.AM/PM) 09/06/24 2100 -- 09/06/24 1607 polyvinyl alcohol-povidone PF (Refresh) ophthalmic solution 1 Drop Dispensed OU DAILY(1900) 09/06/24 1900 -- 09/06/24 1156 hEParin inj 5,000 Units Dispensed SC Q8H 09/06/24 1400 -- 09/05/24 1349 sodium chloride 0.9 % flush peripheral lucy 3 mL Verified IV PUSH Q8H 09/05/24 1430 -- Laboratory Values (reviewed) -- Brief labs below include the 7 most recent results over the past week. Chemistry Panel: Lab results within last 7 days (see chart for full results) Units 09/13/24 0558 09/12/24 0721 09/11/24 0644 09/10/24 0603 09/09/24 0749 09/08/24 0605 09/07/24 0532 SODIUM mmol/L 139 140 140 142 142 136 139 POTASSIUM mmol/L -- 3.9 3.8 3.6 3.8 4.7 4.4 CHLORIDE mmol/L 105 106 106 108* 110* 106 104 CO2 mmol/L 18* 19* 17* 20* 22 20* 21* EGFR mL/min 49* 47* 52* 49* 47* 42* 40* BUN mg/dL 13 15 15 16 15 18 17 CREATININE mg/dL 1.4* 1.4* 1.3* 1.4* 1.4* 1.6* 1.7* GLUCOSE mg/dL 120 156* 116 140* 161* 191* 131* CALCIUM mg/dL 8.2* 8.4 8.4 8.5 8.6 8.1* 8.4 Magnesium mg/dL 1.9 2.1 1.8 1.7 1.9 2.3 2.4 Phosphorus mg/dL 4.2 3.8 3.4 3.8 2.8 4.0 3.4 ANION GAP mmol/L 16* 15 17* 14 10 10 14 Complete Blood Count: Lab results within last 7 days (see chart for full results) Units 09/12/24 0721 09/11/24 0804 09/10/24 0603 09/09/24 0749 09/08/24 0605 09/07/24 0532 WBC K/uL 8.02 7.87 7.49 6.71 6.93 10.64 HGB g/dL 10.7* 10.8* 11.4* 10.9* 10.2* 11.1* HCT % 33.5* 32.7* 35.3* 34.1* 32.6* 35.0* PLT K/uL 190 186 161 139* 116* 196 MCV fL 88.6 86.5 88.5 88.3 93.7 88.8 Liver Function Panel: Lab results within last 7 days (see chart for full results) Units 09/07/24 0532 Triglycerides mg/dL 99 Cultures: No results in the last 7 days - inpatent use only Recent Cultures (2 Weeks) No lab values to display. Toxicology Screen: No results found for this or any previous visit. EKG: Last EKG Procedure Component Value Units Date/Time EKG [[id number]] Collected: 09/07/24 1325 Lab Status: Final result Updated: 09/11/24 1328 Narrative: REASON FOR STUDY: measure QTc;measure QTc;Electrolyte abnorma CONCLUSIONS: Sinus rhythm with occasional Premature ventricular complexes High QRS voltage may be normal variant or due to lve ( [place] product ) Septal infarct , age undetermined Abnormal ECG When compared with ECG of 05-Sep-2024 14:09, Premature ventricular complexes are now Present Septal infarct is now Present Ventricular Rate: 86 Atrial Rate: 86 VA Interval: 164 QRS Duration: 106 QT/QTc: 416/497 ms P-R-T Vancleve: 35 : -8 : 55 degrees Impression: EKG [[id number]] Collected: 09/05/24 1409 Lab Status: Final result Updated: 09/09/24 0854 Narrative: REASON FOR STUDY: Notify provider if obtaining EKG;Chest pain CONCLUSIONS: Normal sinus rhythm Possible inferior infarct Ventricular Rate: 71 Atrial Rate: 71 VA Interval: 174 QRS Duration: 104 QT/QTc: 434/471 ms P-R-T Vancleve: 45 : 0 : 67 degrees Impression: MENTAL STATUS EXAM (MSE) Appearance: age-appropriate and dressed in hospital garb Attitude: cooperative Eye Contact: good Behavior: appropriate and cooperative Impulse Control: improving Speech: normal volume Mood: euthymic Affect: appropriate Thought Process: goal directed Thought Content:normal Suicidality and Homicidality: No Ideation Insight: poor Judgment: limited Memory: poor Attention/Concentration: fair Orientation: alert - orientation as above Language: clear, coherent, and fluent Fund of Knowledge: limited Objective PHYSICAL EXAM & ADDITIONAL FINDINGS Please see most recent physical exam by attending physician. Reviewed ED vital signs and pertinent labs, imaging and other studies through Results Review Pain Screening: Is patient experiencing any pain? No Recommendations for management: Consider appropriate pain medications if indicated Nutritional Screening: No concerns RISK ASSESSMENT- Risk assessment is a dynamic process; it is possible that this patient's condition, and risk level,may change. This should be re-evaluated and managed over time as appropriate. Please call or re-consult us if additional assistance is needed in terms of risk assessment and management. If your team decides to discharge this patient, please advise the patient how to best access emergency psychiatric services, or to call 911, if their condition worsens or they feel unsafe in any way. Based on my current evaluation and risk assessment, patient is determined to be at: Low Risk of harm to self or others Risk Factors: history of depression, age, and sex/gender Protective Factors: access to appropriate services, history of being able to cope with stressors without engaging in self-harm, social support, family, is remorseful about actions leading up to this evaluation, and verbally contracts for safety GENERAL FORMULATION- Based on my current evaluation and assessment of the patient, Goran Hester is a 89 year old yearsold who presents with complaints of hyperactive delirium with medication management. The patient's presentation and diagnosis is consistent with resolving delirium with agitation, hx of depression, concern for developing cognitive d/o 2/2 MCA infarct with hemorrhagic conversion. Pt delirium seems to be resolving and depakote standing was d/donald which I would agree with and use PRN if required for agitation at this point. Would use trazodone given prolonged qtc; if pt becomes increasingly agitated, can move back to standing depakote but at a much lower dose to limit sedation and fall potential. Assessment & Plan DIAGNOSES: Primary Psychiatric Diagnoses: resolving delirium with agitation, hx of depression, concern for developing cognitive d/o 2/2 MCA infarct with hemorrhagic conversion PLAN/RECOMMENDATIONS/INTERVENTIONS: Inpatient psych admission is not recommended Medication recommendations: - would d/c celexa due to prolonged qtc - in future if pt is having acute symptoms could consider something like zoloft 25 mg but pt does not have acute symptoms at this time therefore would not start now - trazodone 12.5 mg q6h PRN for agitation - if requires multiple dosing, I would first move this to standing TID with TID PRN - if pt becomes significantly agitated and depakote is needed to be re-started, would use depakote sprinkles 125 mg TID PRN Non-Medication recommendations: Delirium precautions I reviewed and updated the [place] Suicide Screen and Suicide Safety Plan as clinically indicated Follow-Up Telepsychiatry C/L services: Will sign off for now. Please re-consult our service as necessary. Total time spent in encounter: 40 minutes total, including record review, clinical interview, discussion of impressions and recommendations, consultation/communication with relevant parties, and clinical documentation Impressions and recommendations were shared with the appropriate persons, including the patient to the extent that the patient is able to consent to treatment as well as understand and participate intreatment decision-making. Consultation recommendations were discussed with requesting physician/service. Thank you for involving us in the care of this patient. Please contact us with questions/concerns. Damaris Morgan MD * Thea Beard CRNP - 09/12/2024 11:04 AM ESTAssociated Order(s): HEART FAILURE CONSULT IP Images from the original note were not included. CONSULT - Heart Failure [facility]-[address] [address] Name: Goran Hester Location: [address] Date: 09/12/2024 Time: 11:04 AM REQUESTING SERVICE: Medicine G REASON FOR CONSULT: AHRF on HFNC PRESENTING PROBLEM: Goran Hester [facility] is seen in consultation for escalating oxygen requirement and diuresis . 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 Bleed suspected to be the result of hemorrhagic conversation from ischemic stroke in the setting of uncontrolled HTN. He was previously on DAPT (aspirin and plavix)d/t hx of stents. Echo report from [facility], October 2023: -EF of 30-35% -global hypokinesis mildly concentric left ventricular hypertrophy -no valvular abnormalities. Echo obtained at [facility] 09/06/24 : -LV ejection fraction is 30-34% (moderately reduced). There is diffuse hypokinesis to akinesis. There is no left ventricular mural thrombus. No mural thrombus was identified but the apical wall motion defect could serve as a nidus for thromboembolism. The aortic root and proximal ascending aorta are mildly enlarge Meeting Goran at beside, he is just returning from [place]. Bedside nursing reports increased lethargy, was more conversive earlier. Unable to answer questions appropriately. 8L O2 n/c, pimentel. No family at bedside. He is a no code. Admission weight 209lbs Weight: Patient Vitals for the past 72 hrs: Weight 09/12/24 0230 98.9 kg (218 lb 1.6 oz) 09/11/24 0600 98 kg (216 lb 0.8 oz) 09/10/24 0600 96 kg (211 lb 10.3 oz) PAST MEDICAL HISTORY: No past medical history on file. PAST SURGICAL HISTORY: No past surgical history on file. FAMILY HISTORY: No family history. SOCIAL HISTORY: Social History Tobacco Use Smoking status: Former Types: Cigarettes Smokeless tobacco: Not on file Substance Use Topics Alcohol use: Never Drug use: Not on file ALLERGIES: Patient has no known allergies. ROS: Pt is somnolent and minimally conversive. PHYSICAL EXAMINATION: Most Recent Vital Signs: BP: 161 mmHg/75 mmHg (09/12/24 1024) Pulse: 92 (09/12/24 1024) Resp: 20 (09/12/24 0652) Temp: 37.06 C (09/12/24 1024) Temp Summary: Temp Min: 36.6 C (97.9 F) Max: 37.4 C (99.3 F) SpO2: 97 % (09/12/24 1024) O2 flow rate: 8 L/MIN (09/12/24 1000) Supplemental O2 Delivery: Intermediate Nasal Cannula (09/12/24 1024) Vital Signs Last 24 Hours: Systolic BP: Most Recent Systolic BP Av.4 mmHg Min: 142 mmHg Max: 189 mmHg Temperature: Most Recent Temperature Av.1 C Min: 36.61 C Max: 37.39 C Pulse: Pulse Av.2 Min: 71 Max: 99 Respirations: Resp Av.8 Min: 18 Max: 31 SpO2: SpO2 Av.3 % Min: 85 % Max: 100 % PE: Constitutional: (+) ill appearing, (+) chronically ill Eyes: Pt would not open eyes to command CV: normal rate and rhythm, no murmur, gallops or rub, SR with PVCs on telemetry , Rate in the 70s Chest: normal respiratory effort, does not appear SOB, lungs diminished, O2 8L high flow Abdomen: normal: soft, bowel sounds normal, no masses, tenderness or organomegaly, soft, normal bowel sounds Extremities: +LE edema, +1-2 pitting , JENN for LLE .5 on LLE 09/06/24 Male : Pimentel Skin: warm, dry, scattered skin tears/lesions on upper & lower extremities : Neuro: At first not responding to verbal cues, keeping eyes closed Current Outpatient Medications Medication Instructions AMBULATORY MISCELLANEOUS MEDICATION Dorzolamide HCI-Timolol 22.3-6.8: Administer 1 drop in both eyes twice daily amLODIPine (NORVASC) 2.5 mg, Oral, Daily(AM) aspirin enteric coated 81 mg, Oral, Daily(AM) atorvaSTATin (LIPITOR) 40 mg, Oral, Daily(AM) Cholecalciferol 50 MCG (1999 UT) Oral Tablet 1 Tablet, Oral, Daily(AM) citalopram (CELEXA) 10 mg, Oral, Daily(AM) cycloSPORINE 0.05 % Ophthalmic Emulsion (Restasis) 1 Drop, Both eyes, BID (.AM/PM) Dorzolamide HCl-Timolol Mal 2-0.5 % Ophthalmic Solution (Cosopt Ocumeter Plus) 1 Drop, Ophthalmic, BID (.AM/PM) Dulaglutide (TRULICITY) 4.5 mg, Subcutaneous, THURSDAY Ferrous Sulfate (FEOSOL) 325 mg, Oral, BREAKFAST Finasteride (PROSCAR) 5 mg, Oral, Daily(AM) glipiZIDE XL (GLIPIZIDE XL) 10 mg, Oral, Daily(AM) Lisinopril (PRINIVIL) 5 mg, Oral, Daily(AM) Melatonin 5 mg, Oral, HS metFORMIN ER (GLUCOPHAGE XR) 1,000 mg, Oral, BID (.AM/PM) metoprolol succinate XL (TOPROL XL) 75 mg, Oral, Daily(AM) pantoprazole (PROTONIX) 40 mg, Oral, Daily(AM) Imaging: JENN 09/06/24: JENN at rest is 1.24 on the right and 0.51 on the left. 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 Lower extremity Doppler Evaluation is normal at rest with no evidence of significant arterial occlusive disease. For the left lower extremity: Lower extremity Doppler Evaluation is consistent with moderate arterial occlusive disease. CT 09/12/24: 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 The hematoma in the left temporal lobe has not significantly changed in size and there is no evidence of newintracranial hemorrhage. Similar edema and mild mass effect without midline shift or herniation. Other scattered subacute ischemic infarcts are better demonstrated on prior MR brain. 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 LABS: Labs reviewed as indicated below: Latest Reference Range & Units 09/12/24 07:21 SODIUM 135 - 146 mmol/L 140 POTASSIUM 3.5 - 5.1 mmol/L 3.9 CHLORIDE 98 - 107 mmol/L 106 CO2 22 - 32 mmol/L 19 (L) BUN 6 - 20 mg/dL 15 CREATININE 0.6 - 1.2 mg/dL 1.4 (H) EGFR >=60 mL/min 47 (L) ANION GAP 7 - 15 mmol/L 15 GLUCOSE 70 - 120 mg/dL 156 (H) CALCIUM 8.4 - 10.2 mg/dL 8.4 Magnesium 1.5 - 2.6 mg/dL 2.1 Phosphorus 2.5 - 4.8 mg/dL 3.8 Latest Reference Range & Units 09/12/24 07:21 WBC 4.00 - 10.80 K/uL 8.02 RBC 4.50 - 5.25 M/uL 3.78 HGB 14.0 - 16.8 g/dL 10.7 (L) HCT 40.0 - 48.4 % 33.5 (L) MCV 82.0 - 99.5 fL 88.6 MCH 27.0 - 34.0 pg 28.3 MCHC 32.0 - 36.0 g/dL 31.9 RDW 11.5 - 15.5 % 13.7 PLT 140 - 400 K/uL 190 MPV 6.6 - 11.1 fL 10.3 IMPRESSION and PLAN: Acute Systolic Heart Failure Acute hypoxic respiratory failure CAD, ND, s/p several PCIs HTN EF found on echo this admission appears similar to one year ago. Will contact [facility] cardiology for most recent note/cath report. Troponin mildly elevated at 62 on 09/07/24. He is hypervolemic on exam and wt appears to have trended upward. Received 40mg IV lasix push this morning. Recommend lasix 40mg IV BID. Stop cardizem. Restart SAND BOBBER metoprolol succinate XL 50mg. Continue Lisinopril 10mg Thank you, we will follow along. HESHAM Pfeiffer I spent a total of 40-54 minutes (exact time 45 mins) on the date of service in preparation, delivery, and documentation of the care provided to Goran Hester excluding any time spent in the performance of separately billed services or time spent by another provider/QHP. Cosigned by Nicole Kang DO at 09/13/2024 6:01 PM EST Associated attestation - Nicole Kang DO - 09/13/2024 6:01 PM EST I have reviewed the advanced practitioner's documentation on the date of service referenced in note, and I agree with, and take responsibility for the plan of care. * Delores Marin, [employer]TER - 09/10/2024 9:18 AM ESTAssociated Order(s): ADULT SPEECH THERAPY CONSULT IP (ACUTE CARE REHAB) PROGRESS NOTE - Speech-Language Pathology [facility]-[address] [address] Name: Goran Hester Location: [facility] A436/A Date: 09/10/2024 Time: 9:18 AM Patient Status: Inpatient Insurance: Payor: MEDICARE / Plan: MEDICARE A AND B / Product Type: *No Product type* / Patient Age: [age] year old Consult noted and appreciated. Pt already on ST caseload. Pt seen this date for swallowing tx. Pt last seen by ST on 09/07 with recommendations for Regular Solids w/ Thin Liquids Pt NPO at this time Pt was asleep upon arrival with nursing and 1:1 present at bedside. Per 1:1, pt was awake for most of the night and fallen asleep at 0600. Pt was able to follow simple commands inconsistently and with noted weakness. Pt would not open hiseyes or verbally communicate. Pt presented with thin liquids via tsp. Oral phase judged to be impaired at this time characterized by anterior loss of bolus and increasedtransit time. Pharyngeal phase judged to be impaired at this time characterized by delayed initiation. No overt s/s of aspiration noted RECOMMENDATIONS: - NPO d/t mentation - Medication presented via non oral means - ST will f/u as able and appropriate * Megan Nath [facility] - 09/08/2024 6:45 AM ESTAssociated Order(s): PHARMACY CONSULT IP PHARMACY SLEEP HYGIENE IP CONSULT [address] [address] Name: Goran Hester Location: [facility] A436/A Date: 09/08/2024 Time: 6:45 AM Hospital Problem List: Patient Active Problem List Diagnosis Stroke-like symptoms Intraparenchymal hemorrhage of brain (HCC) Ac isch multi vasc territories stroke (HCC) Systolic heart failure (HCC) Dyslipidemia, goal LDL below 70 Delirium due to multiple etiologies, acute, hyperactive Encephalopathy acute Medications: Note that completed medications (per the MAR) continue to display for 24 hours. Ordered meds to be given in the future also display. Current Facility-Administered Medications Medication Dose Route Frequency Provider albuterol-ipratropium (Duoneb) inhalation solution 3 mL 3 mL Nebulizer Q4H PRN Shala Mosley, DO Benzonatate (Tessalon Perles) cap 100 mg 100 mg Oral Q8H PRN Whitney, Andre Atef, DO dexmedeTOMIDine (Precedex) 400 mcg in 100 mL infusion 0-1.5 mcg/kg/hr Intravenous Titrate Arnoldo Sawant, DO dorzolamide (Trusopt Ocumeter Plus) 2 % ophthalmic solution 1 Drop 1 Drop Both eyes BID(AM/PM) Whitney Andre Atef, DO Haloperidol Lactate (Haldol) 5 MG/ML inj 2.5 mg 2.5 mg IV Push Q15 Min PRN Arnoldo Sawant DO Isolyte-S pH 7.4 infusion Intravenous Continuous Andre Olson, DO labetalol (Trandate) inj 10 mg 10 mg Intravenous Q1H PRN Schuyler Waddell DO levETIRAcetam (Keppra) 500 mg in 100 mL ivpb *LOCKED DOSE* 500 mg IV Piggyback BID(AM/PM) Andre Olson, DO niCARdipine (CARDENE) 20 mg in 200 mL saline infusion 2.5 mcg/kg/min Intravenous Continuous Arnoldo Sawant, cycloSPORINE (Restasis) 0.05 % ophthalmic emulsion 1 Drop 1 Drop Both eyes BID(AM/PM) Shala Mosley DO hEParin inj 5,000 Units 5,000 Units Subcutaneous Q8H Shala Mosley DO polyvinyl alcohol-povidone PF (Refresh) ophthalmic solution 1 Drop 1 Drop Both eyes Daily 1900 Shala Mosley DO chlorHEXIDINE (Periogard) 0.12 % oral rinse 15 mL 15 mL Oral mucosal membrane BID (0800,1999) Power Barba MD Oral Hygiene: Mouth Swab with dentifrice Oral Q4H Limited (00;04;12;16) Power Barba MD oxygen GAS Inhalation Oxygen Power Barba MD sodium chloride 0.9 % flush peripheral lucy 3 mL 3 mL IV Push Q8H Power Barba MD Allergies: Patient has no known allergies. Pharmacy has reviewed patient's current medication orders and has timed medication administration times to fall between the hours of 0600 and 2200 where appropriate. No medications needed to be adjusted at this time. Future medications will be adjusted PRN. Please contact pharmacy if there are any other needs. Megan Nath RPh, PharmD, BCPS, BCCCP * Leela Amezcua RDN - 09/06/2024 1:51 PM EST CLINICAL NUTRITION CONSULT NOTE [facility]-[address] [address] Name: Goran Hester Location: [facility] A436/A Date: 09/06/2024 Time: 1:51 PM How patient was identified (select 2): Wristband and Medical record number Discussed in interdisciplinary rounds: Telma Goran Hester is a 89 year old male being seen for enteral nutrition and high risk diagnosis Primary Diagnosis: 89 year old male was admitted on 09/05/2024 and presents with an intracranial hemorrhage. Other pertinent information: The patient was assessed by speech pathology and an NPO diet order wasrecommended. There is currently no enteral access in place. Will continue to monitor the patient's weight status, laboratory values, and the nutrition plan of care. NUTRITION ASSESSMENT: Past medical/surgical history and medications reviewed. Food/Nutrition-Related History Nutrition Support: N/A Diet: NPO Previously followed diet: Unable to determine Food Allergies/Intolerances: None. Adult Energy Intake: Unable to obtain at present time Pertinent medications/vitamins/minerals/supplements: Isolyte infusion, Cardene, Magnesium Sulfate, Pepcid. Pertinent Biochemical Data: Labs Reviewed. There are no biochemical abnormalities requiring a change in the nutrition plan of care. Nutrition-Focused Physical Findings: Appearance: Obese Respiratory support: Supplemental O2 Delivery: Nasal Cannula Nasal/Oral: Swallow function, compromised or painful Digestive: Unable to determine Cognition: GCS: 10 Skin: Intact Enteral access: N/A Nutrition Focused Physical Exam: NFPE completed on 09/06/2024 Subcutaneous Fat Loss: No significant subcutaneous fat loss noted. Muscle Loss: No significant muscle loss noted. Anthropometrics Measurements Height: 175.3 cm (5' 9") (09/05/24 1400) Admission weight: 95 kg Weight: 97.8 kg (215 lb 9.8 oz) (09/06/24 0600) Usual Body Weight: 95-96 kg [place] weight: 76.5 kg [place] Weight Based on BMI: 24.9 Adjusted ideal weight: 81.1 kg Interpretation of Weight Change Prior to Admission: No recent/significant weight change Weight Changes Since Admission: N/A Nutrition Prescription: Energy needs: 20-25 Kcal/kg Kcal/day: 8117-3209 Based on admission weight Protein needs: 1.0-1.2 gm/kg Protein: 95-114 Based on admission weight Fluid needs: 25 ml/kg Fluid: 2375 ml/day Based on admission weight Malnutrition: Malnutrition Present: No (09/06/24 1400) NUTRITION DIAGNOSIS: Swallowing difficulty related to dysphagia as evidenced by the need for a non- oral route of nutrition. Goals: Transition to oral or enteral nutrition support as soon as clinically feasible. NUTRITION INTERVENTION/PLAN: Continue to monitor NPO/clear liquid status Clinical Nutrition Recommendations: Diet: Advance diet when clinically feasible For enteral nutrition, recommend providing Nutren 1.5 @ 65 mL/hr to provide 2050 calories, 93 gramsof protein, and 1040 mL of free water. (Calculated to meet needs over 21 hours) NUTRITION MONITORING AND EVALUATION: NPO status/diet advancement and tolerance Lab values warranting change with MNT Weight for trends Plan follow-up: Will follow and adjust nutrition plan of care as medical condition requires. Please contact for change(s) in patient condition requiring earlier intervention. Leela Amezcua RDN, LDN Registered Dietitian [phone] Available via [employer] * Mago Flood RN - 09/06/2024 11:34 AM ESTAssociated Order(s): CARE MANAGEMENT CONSULT IP Chart reviewed. Patient discussed with IDT . Care Management needs are undetermined at this time, pt is a transfer from [facility] s/p left temporal intraparenchymal hemorrhage and is awaiting MRI of brainand is currently requiring Cardene infusion. Care Management will continue to follow. * Soledad Bray, PT - 09/06/2024 10:35 AM ESTAssociated Order(s): ADULT PHYSICAL THERAPY CONSULT IP GENERAL EVALUATION - Physical Therapy [address] [address] Name: Goran Hester Location: [facility] A4/A Date: 09/06/2024 Time: 1035 Goran Hester is a/an 89 year old male. Patient Status: Inpatient Insurance: Payor: MEDICARE Plan: MEDICARE A AND B Product Type: *No Product type* Payor: [facility] ([employer]) Plan: [employer] MEDICARE SUPPLEMENT Product Type: *No Product type* Patient Seen: at bedside, nursing cleared patient for therapy Patient Identified By: Name, ID Band and Date Diagnosis: ICH (09/06/241034) Status of treatment: Evaluation completed (09/06/241034) Orders: PT evaluation and treatment;OOB (09/06/241034) Precautions: Alarms;Falls;Oxygen;Safety;Pimentel (09/06/241034) Total Treatment Time--free text: 16 (09/06/241034) Past Medical History: No past medical history on file. Past Surgical History: No past surgical history on file. Subjective: Pt in bed, very lethargic. Social History/Disposition Lives with: Unable to obtain from patient/family (09/06/241034) Assistance available: Unable to obtain from patient / family (09/06/241034) Dwelling type: Unable to obtain from patient / family (09/06/241034) Entry steps: Unable to obtain from patient / family (09/06/241034) Inside steps: Unable to obtain from patient / family (09/06/241034) Bedroom location: Unable to obtain from patient / family (09/06/241034) Bath location: Unable to obtain from patient / family (09/06/241034) Prior Level of Function Reported by: Unable to obtain from patient / family (09/06/241034) Ambulation: Unable to obtain from patient / family (09/06/241034) Devices at home: Unable to obtain from patient/family (09/06/241034) Observations Consciousness: Lethargic;Obtunded;Responsive to noxious stimuli (09/06/241034) Orientation: (unable; only able to say last name 1 time) (09/06/241034) Psychosocial: Patient cannot communicate basic needs.;Patient cannot converse in a social setting. (09/06/241034) Other Findings: No (09/06/241034) Sitting Posture: Forward head;Rounded shoulders;Posterior lean;Right lateral lean (09/06/241034) Standing Posture: Forward head;Rounded shoulders;Posterior lean;Right lateral lean (09/06/241034) Pain: Nonverbal; unable to express pain, but responded to noxious stimuli Range of Motion Range of Motion: WFL (passive, minimal muscle activation and not following commands) (09/06/241034) Strength Assessment Strength Assessment: (0/5 at this time, not following commands to participate) (09/06/241034) P.T. Bed Mobility Supine-Sit: Maximal Assistance (x2) (09/06/241034) Sit-Supine: Dependent (x2) (09/06/241034) Transfers Sit-Stand: Maximal Assistance (x2) (09/06/241034) Stand-Sit: Maximal Assistance (x2) (09/06/241034) W/C-Bed/Mat: Maximal Assistance (x2 via stand pivot transfer to head of bed) (09/06/241034) Balance Sit (Static): Poor (- to absent) (09/06/241034) Sit (Dynamic): Poor (- to absent) (09/06/241034) Stand (Static): Absent (09/06/241034) Stand (Dynamic): Absent (09/06/241034) Patient and or Family Goal(s): unable to obtain Patient Education Review of Precautions: Safety;Fall (role of PT) (09/06/241034) Review of Exercises: Verbal Exercises Provided;Pt Demonstrated Exercise (09/06/241034) Safety Awareness: Patient does not verbalize insight of current deficits;Patient does not demonstrates carryover of insight during functional tasks (09/06/241034) Preferred learning method: Combination (09/06/241034) Barriers to learning: Medical Status;Cognition;Level of alertness (09/06/241034) Method of Education: Verbalized to patient (09/06/241034) Topic of Education: Safety with mobility, Goals/plan of care, and Fall prevention Method of Education: Verbal discussion and explanation provided to pt: had reduced level of understanding due to level of alertness and overall status Treatment Provided: Evaluation High Complexity 16 minutes - 20182: Patient was lethargic during treatment session. High complexity evaluation performed and 3 or more personal factors or comorbiditieswere identified that will impact plan of care, including level of alertness, ICU status, current functional status, and recent ICH. Patient presents with limitations in range of motion, strength, bedmobility, transfers, gait, elevations, balance, endurance, and safety, which will impact plan of care. These limitations will be addressed by the goals set for this patient. Alarm Status Patient positioned in: Bed (09/06/241034) With: Bed alarm intact and functioning and call alfred in reach (09/06/241034) Treatment Status: Treatment at bedside (09/06/241034) Goals: Demonstrate Bed Mobility with: Guevara x2 Demonstrate Lateral Scoot, Sit to/from Stand, and/or Stand Pivot Transfers with: Guevara x2 Demonstrate Ambulation: Guevara x2, least restrictive AD, 5 ft as able/appropriate Increase Strength of: B/L LE by 25% Increase active ROM of B/L LE by 25% Increase Balance: dynamic standing balance to poor Increase Safety: of functional mobility Time Frame: 9-10 visits Assessment: Pt is 89 year old male presenting with ICH. Pt seen on this date for initial evaluation. During session, pt was lethargic/obtunded. Pt did respond to noxious stimuli and opened eyes briefly. Pt was able to say 1-2 words and state his last name with maximal stimulation and cues, but otherwise very lethargic and not following commands. Upon initial evaluation, pt was able to perform bedmobility with maxA x2. Pt sat edge of bed with maxA to dependent due to posterior and R lateral lean. Pt performed sit to stand transfers with maxA x2 and stand pivot to head of bed maxA x2. Pt returned to supine dependent x2. Following session, pt positioned in bed with alarm and call alfred in reach. Pt presents with deficits in ROM, strength, endurance, mobility, ambulation, and balance, all of which are currently negatively impacting pt's quality of life. Pt would continue to benefit from skilled PT services while inpatient at hospital to reach established goals and address deficits. Pt is not safe to return home due to current functional status and requiring significant assist x2 for allmobility. Please consider post-acute care services which may include home health, senior care, outpatient therapy or inpatient rehabilitation. The level of care will be determined in collaboration with patient, family/caregiver and care team members. All needs met. Deficits requiring P.T. treatment needs: Safety;Mobility;Balance;Weakness;Endurance;Lower extremitystrength;Range of motion (09/06/241034) Equipment Needs: Equipment needs: (TBD) (09/06/241034) Treatment Plan: Bed mobility training, Transfer training, Gait training, ROM and Strengthening exercises: B/L LE, Balance activities, and Educate on safety with functional mobility Anticipated Frequency (on eval): 3 to 5 times per week (09/06/241034) AM PAC Score with Stairs: 6 A portion of this AM-PAC assessment not scored based on functional assessment ; rather clinical decision making utilized based on current findings and/or prior level of function. Please refer to future AM-PAC calculations of functional ability as they become available. * Faraz Johnson, OT - 09/06/2024 10:35 AM ESTAssociated Order(s): ADULT OCCUPATIONAL THERAPY CONSULT IP GENERAL EVALUATION- Occupational Therapy [facility]-[address] [id number] Name: Goran Hester Location: [facility] A436/A Date: 09/06/2024 Time: 10:35 AM HPI: Per EPIC, "The patient is a 89 year old male with hx of admitted for spontaneous intracranial hemorrhage. Per lifeflight patient was at [facility] and experienced change in mental status with disorientation and physical agitation. The patient was imaged 09/05/24 0128 and imaging read at 1118 found to have 4.1 x 2.8 cm intraparenchymal hematoma within the left temporal lobe. He received 2g Keppra and IV magnesium for hypomagnesemia and was lifeflighted to [facility]. Examining the patient on arrival he is Alert but confused and only oriented to self. Follows commands, does not endorse any pain. Son arrived 1645 per report patient has PMH ND x5 w/ stents. Patient son reports last ND 08/2022 complicated by 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. Patient lives at [facility] in [facility]. Called patient PCP awaiting records by fax" Patient Status: Inpatient Insurance: Payor: MEDICARE Plan: MEDICARE A AND B Product Type: *No Product type* Payor: [facility] ([employer]) Plan: [employer] MEDICARE SUPPLEMENT Product Type: *No Product type* Patient Seen: at bedside, nursing cleared patient for therapy Patient Identified By: Name, ID Band and Date Diagnosis: ICH (09/06/241034) Status of treatment: Evaluation completed (09/06/241034) Orders: OT evaluation and treatment;OT OOB (09/06/241034) Weight Bearing Status: Weight bearing as tolerated (09/06/241034) Precautions: Alarms;Falls;Safety (09/06/241034) Total Treatment Time: 15 (09/06/241034) Past Medical History: No past medical history on file. Past Surgical History: No past surgical history on file. Social History/Disposition Lives with: Unable to obtain from patient/family (09/06/241034) Assistance available: Unable to obtain from patient / family (09/06/241034) Dwelling type: Unable to obtain from patient / family (09/06/241034) Entry steps: Unable to obtain from patient / family (09/06/241034) Inside steps: Unable to obtain from patient / family (09/06/241034) Bedroom location: Unable to obtain from patient / family (09/06/241034) Bath location: Unable to obtain from patient / family (09/06/241034) Prior Level of Function Reported by: Unable to obtain from patient / family (09/06/241034) Ambulation: Unable to obtain from patient / family (09/06/241034) Grooming: Unable to obtain from patient / family (09/06/241034) Bathing: Unable to obtain from patient / family (09/06/241034) Dressing: Unable to obtain from patient / family (09/06/241034) Feeding: Unable to obtain from patient / family (09/06/241034) Toileting: Unable to obtain from patient / family (09/06/241034) Meal Prep: Unable to obtain from patient / family (09/06/241034) Observations Consciousness: Lethargic (09/06/241034) Orientation: Person (09/06/241034) Cognitive Limitations: Attention to task;Processing;Problem solving;Task organization (09/06/241034) Psychosocial: Patient can communicate basic needs;Patient cannot converse in a social setting. (09/06/241034) Sitting posture: Forward head;Rounded shoulders;Posterior lean;Right lateral lean (09/06/241034) Standing posture: Forward head;Rounded shoulders;Posterior lean;Right lateral lean (09/06/241034) Safety awareness: Needs cueing supervision. (09/06/241034) Pain: Patient has no complaints of pain Current Functional Status: UE Strength/ROM: BUE are WFL for passive range only, patient not attending to MMT commands, however, was noted to impulsively resist when moved Bed Mobility Supine-Sit: Maximal Assistance (x2) (09/06/241034) Sit-Supine: Dependent (x2) (09/06/241034) OT Transfers Sit-Stand: Maximal Assistance (x2) (09/06/241034) Stand-Sit: Maximal Assistance (x2) (09/06/241034) Bed-Chair: Maximal Assistance (x2 pivot towards head of bed) (09/06/241034) Self Care Able to provide self care: No (09/06/241034) Toileting: Minimal Assistance (09/06/241034) Balance Sit (Static): (Poor-) (09/06/241034) Sit (Dynamic): (Poor-) (09/06/241034) Stand (Static): (Poor-) (09/06/241034) Stand (Dynamic): Absent (09/06/241034) Dressing Upper Body: Dependent (09/06/241034) Lower Body: Dependent (09/06/241034) Patient and or Family Goal(s): None Alarm Status Patient positioned in: Bed (09/06/241034) With: Bed alarm intact and functioning and call alfred in reach (09/06/241034) Treatment Provided: Evaluation Moderate Complexity 15 minutes - 73068: Patient was lethargic duringtreatment session. Moderate complexity evaluation performed and 3-5 activity limitations were identified, including ADL deficit, functional mobility deficit, bed mobility deficit, decreased strength,decreased endurance, and impaired balance. Minimal or moderate modification of the functional task w as necessary to complete the evaluation. Patient Education Education Topic: Role of OT;Plan of care goals (09/06/241034) Review of Precautions: Safety;Fall (09/06/241034) Method of Education: Verbalized to patient (09/06/241034) Education Provided to: Patient (09/06/241034) Response to Education: Has decreased awareness and understanding of education (09/06/241034) Barriers to learning: Medical status;Cognition;Level of alertness (09/06/241034) Preferred learning method: Combination (09/06/241034) Method of Education: Verbal discussion and explanation provided to patient: needs further education-patient very lethargic Assessment: Patient is an 89 year old male admitted on 09/05/24 being seen for ICH. History unable to be obtained at this time due to significant lethargy throughout session. On exam, patient requiredmax assist x2 for bed mobility due to weakness/lethargy. He required minimal assist to wash face while edge of bed, however, was dependent for all other tested ADLs due to decreased sitting balance/inability to manage clothing. He required max assist x2 to stand at bedside, however, could not progress further with mobility at this time due to significant weakness. Patient would benefit from ongoing acute OT services to improve function. [facility], outpatient therapy or inpatient rehabilitation. The level of care will be determined in collaboration with patient, family/caregiver and care team members. AM-PAC Help From Another Person Eating Meals: A lot (09/06/241034) Help From Another Person Taking Care of Personal Grooming: A lot (09/06/241034) Help From Another Person To Put On/Take Off Upper Body Clothing: Total (09/06/241034) Help From Another Person To Put On/Take Off Lower Body Clothing: Total (09/06/241034) Help From Another Person Toileting: Total (09/06/241034) Help From Another Person Bathing: A lot (09/06/241034) OT AM-PAC Score: 9 (09/06/241034) OT AM-PAC t-Scale Score: 25.33 (09/06/241034) HLM (Highest Level of Mobility) Goal: Level 2 bed activities/dependent transfer (09/06/241034) A portion of this AM-PAC assessment not scored based on functional assessment; rather clinical decision making was utilized based on current findings and/or prior level of function. Please refer to future AM-PAC calculations of functional ability as they become available. Deficits requiring O.T. treatment needs: ADL/self- care;Balance;Endurance;Functional mobility;IADL;Safety;Upper extremity strength;Weakness (09/06/241034) Goals: Increase Strength of BUE by one grade throughout Demonstrate sitting Balance of Fair Demonstrate standing Balance of Poor Demonstrate self care with minimal assistance for all UB/LB tasks Demonstrate toileting with minimal assistance Demonstrate Bed Mobility with minimal assistance x2 Demonstrate Transfers with minimal assistance x2 Demonstrate Functional Ambulation with minimal assistance x2 Treatment Plan: Accuracy with Precautions, Safety, Bed mobility training, Functional Ambulation, Transfer training, Coordination Tasks, Upper extremity strengthening, Balance activities, ADL training, and Endurance Goal Time Frame:8 visits Anticipated Frequency (on eval): 3 to 5 times per week (09/06/241034) * Mariya Jewell SLP - 09/06/2024 8:41 AM ESTAssociated Order(s): ADULT SPEECH THERAPY CONSULT IP (ACUTE CARE REHAB) CLINICAL BEDSIDE SWALLOW EVALUATION - Speech-Language Pathology [address] [address] Name: Goran Hester Location: [facility] A436/A Date: 09/06/2024 Time: 8:42 AM Patient Status: Inpatient Insurance: Payor: MEDICARE / Plan: MEDICARE A AND B / Product Type: *No Product type* / GENERAL INFORMATION: Admission Date: 09/05/2024 Referring Physician: Power Barba MD Pertinent Medical History: Per medical chart review, "Goran Hester is a 89 year old, right-handedmale with an unknown past medical history; presents to [facility] via transfer from an outside hospital after presenting with an altered mental status. Medical imaging completed at the outside hospital showed a left temporal intraparenchymal hemorrhage. The patient was transferred to [facility] for definitive care. 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 The patient was unable to participate in any history. Patient's son at bedside was able to give limited information regarding the current events. No known blood thinning medications " Imaging: CTA Head 09/05: "IMPRESSION 1. A grossly similar intraparenchymal hemorrhage in the left temporal lobe with surrounding edema, suggestive of NC territory infarct with hemorrhagic transformation. No definite abnormal enhancementor arteriovenous malformation. 2. 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 If there is clinical concern for dissection, consider MR angiography of the neck for further evaluation 3. 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 4. 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 5. Multiple prominent mediastinal lymph nodes, which could represent reactive lymph nodes." No past medical history on file. No past surgical history on file. Current Diet/Dysphagia History: Pt currently NPO, nursing bedside screen deferred. Pt unable to provide dysphagia hx, however per medical chart review none found. Cognitive-Communication: Pt unable to alert to therapist. Did not open eyes or follow commands. Seecognitive-communication assessment for further details Barriers to Learning: Medical Status Hearing Acuity: Deferred Best Learning Method: Multimodal Pain: Unable to verbalize ORAL MECHANISM EXAM: Facial Symmetry Unable to assess due to difficulty following directions Labial Function Unable to assess due to difficulty following directions Lingual Function Unable to assess due to difficulty following directions Velar Function Unable to assess due to difficulty following directions Dentition: Unable to assess due to difficulty following directions PROTECTIVE MECHANISMS: Volitional Swallow Did not test Volitional Throat Clearing Did not test Volitional Cough Did not test Vocal Quality Did not test Tracheostomy Tube: Not Present Ventilator Status: Not Applicable 2L/MIN via NC SWALLOWING FUNCTION: The following consistencies were evaluated: ice chips, thin via tsp Presented pt with limited trials of ice chips and thin liquid +opening for spoon and labial closure around spoon +bolus containment in oral cavity +efficient mastication of ice chips Timely bolus transfer and swallow initiation Pharyngeal phase inferred, no overt s/s of aspiration RECOMMENDATIONS/PLAN: Videofluoroscopy: Not indicated at this time Diet Level: NPO Presentation of Medication: non-oral ANTICIPATED FREQUENCY (ON EVAL): 1-3 times per week DIAGNOSIS/IMPRESSIONS: Diagnosis/Impressions: Pt presented with limited PO trials Oral phase functional for ice chips No overt s/x of aspiration Due to pt's inability to stay awake/alert, not appropriate to feed at this time Rehab Potential: fair TREATMENT PLAN: Swallowing Treatment: Indicated Treatment Goals: Patient will consume least restricitive diet without signs/symptoms of aspiration Additional Recommendations: n/a The above information was discussed with the patient/RN. Yes The patient/RN was in Agreement Whitney Reaves MD - 09/05/2024 5:55 PM ESTAssociated Order(s): NEUROLOGY CONSULT IP CONSULT - Stroke / Vascular Neurology [address] [address] Name: Goran Hester Location: [facility] A436/A Date: 09/05/2024 Time: 5:55 PM Date and Time Service was Contacted: Time: 1729 Date: 09/05/2024 REQUESTING SERVICE: Critical Care Medicine PRESENTING PROBLEM: Ischemic Stroke w Hemorrhagic Conversion REASON FOR CONSULT: "Ischemic stroke w/ hemorrhagic conversion w/ no intervention recommended by NSG" Last Known Well (LKW): Time: 1999 Date: 09/04/2024 HPI: Goran Hester is a 89 year old male with stroke risk factors as outlined below, who presents with symptoms including altered level of consciousness. He lives in [facility] yesterday evening but found disoriented and agitated this morning. He was brought to [facility] and found to have a L temporal IPH, lifeflighted to [facility] for higher level of care and neurosurgical consult. On interview, he has a waxing and waning LOC, unable to consistently follow commands or provide meaningful history; aphasic with perseveration, repeating previous words. Ischemic Stroke Risk Factors Prior Stroke Hypertension Coronary Artery Disease Prior Myocardial Infarction s/p Coronary Stents Hemorrhagic Stroke Risk Factors Hypertension Stroke Mimic Risk Factors None SAND BOBBER Medications Reviewed: yes Recent Antithrombotics: None Last Dose Taken: N/A CURRENT MEDICATIONS: Note that completed medications (per the MAR) continue to display for 24 hours. Ordered medicationsto be given in the future also display. Current Facility-Administered Medications Medication Dose Route Frequency Provider Acetaminophen (Ofirmev) inj 1,000 mg 1,000 mg Intravenous Q8H Power Barba MD chlorHEXIDINE (Periogard) 0.12 % oral rinse 15 mL 15 mL Oral mucosal membrane BID (799,1999) Power Barba MD Famotidine (Pepcid) inj 20 mg 20 mg IV Push Q12H Power Barba MD Isolyte-S pH 7.4 infusion Intravenous Continuous Power Barba MD labetalol (Trandate) inj 10 mg 10 mg Intravenous Q1H PRN Philip Gabriel MD niCARdipine (CARDENE) 20 mg in 200 mL saline infusion 5 mg/hr Intravenous Continuous Richard Alcala MD Oral Hygiene: Mouth Swab with dentifrice Oral Q4H Limited (00;04;12;16) Power Barba MD oxygen GAS Inhalation Oxygen Power Barba MD sodium chloride 0.9 % flush peripheral lucy 3 mL 3 mL IV Push Q8H Power Barba MD ALLERGIES: Patient has no known allergies. PAST MEDICAL HISTORY: No past medical history on file. PAST SURGICAL HISTORY: No past surgical history on file. FAMILY HISTORY: No family history on file. SOCIAL HISTORY: Social History Tobacco Use Smoking status: Former Types: Cigarettes Smokeless tobacco: Not on file Substance Use Topics Alcohol use: Never Drug use: Not on file ROS: Unable to obtain 2/2 AMS PHYSICAL EXAMINATION: Most Recent Vital Signs: BP: 121 mmHg/49 mmHg (09/05/24 1700) Pulse: 61 (09/05/241699) Resp: 15 (09/05/241699) Temp: 37 C (09/05/24 1600) Temp Summary: Temp Min: 37 C (98.6 F) Max: 37.3 C (99.1 F) SpO2: 97 % (09/05/241699) O2 flow rate: 2 L/MIN (09/05/241699) Supplemental O2 Delivery: Nasal Cannula (09/05/241699) Weight: 95 kg (209 lb 7 oz) (09/05/24 1345) Height: 175.3 cm (5' 9") (09/05/24 1400) Body mass index is 30.93 kg/m. Vital Signs Last 24 Hours: Systolic BP: Most Recent Systolic BP Av.8 mmHg Min: 116 mmHg Max: 142 mmHg Temperature: Most Recent Temperature Av.2 C Min: 37 C Max: 37.28 C Pulse: Pulse Av.3 Min: 60 Max: 71 Respirations: Resp Av Min: 15 Max: 25 SpO2: SpO2 Av.7 % Min: 88 % Max: 97 % General Examination: Constitutional: Appearance no deformities, well groomed, and in bed Head/face, ears, nose, throat: normocephalic, atraumatic Respiratory: On O2 via NC, breathing comfortably Psychiatric: Not agitated, not anxious, + confused Neurologic Examination: Mental Status and Orientation: arouses to voice Language: aphasic, primarily expressive aphasia with perseveration Speech: no dysarthria Cranial Nerves: CN 2 - no visual defect on confrontation CN 3, 4, 6 - extra-ocular movements intact and no nystagmus CN 5 - facial sensation intact V1-3 CN 7 - no facial asymmetry CN 8 - intact hearing Sensory: intact to light touch Coordination: intact with finger to nose testing Muscle Tone: normal Muscle exam: antigravity in BLE and BUE, does not persistently hold up BLE but likely 2/2 fatigue/confusion Reflexes: Brachioradialis Biceps Triceps Patellar Achilles Elsie's Right 2+ 2+ 2+ 2+ 2+ not present Left 2+ 2+ 2+ 2+ 2+ not present SEVERITY SCORES: [employer] Stroke Scale: 1A. LOC: 1 1B. Question: 2 1C. Commands: 0 2. Gaze: 0 3. Visual Suarez: 0 4. Facial Palsy: 0 5A. Arm Left: 0 5B. Arm Right: 0 6A. Leg Left: 2 6B. Leg Right: 2 7. Ataxia: 0 8. Sensory: 1 9. Aphasia: 2 10. Dysarthria: 0 11. Extinction: 0 Total: 10 Baseline / Pre-morbid Level of Function by Modified Ant Scale: 0 - No Sxs; 6 - 3 - Mod disability can walk independently 1 - Sxs no disability 4 - Mod disability walks w/ assistance 2 - Sxs slight disability 5 - Severe disability bedridden Modified Gila Scale = 3 - Moderate disability. Requires some help, but able to walk without the assistance of another individual. ABCD2 (Age, BP, Clinical Features of TIA, Duration, Diabetes) Score: N/A ASPECTS (CT Scan): N/A ASPECTS (CT Angiogram-Source Images): N/A ASPECTS (MRI Brain Diffusion Images): N/A Intracerebral Hemorrhage (ICH) Score: 2 [place]um[place] & [place] Score: N/A Mccord SAH Grade: N/A Personal Review of Neuroimaging, my interpretations are as follows: CT Head without contrast: Intraparenchymal Hemorrhage, L temporal lobe CT Angiogram: N/A CT Perfusion: N/A MRI Brain: N/A I have reviewed Radiologic Studies and noted significant findings as follows: EXAM: CT HEAD WITHOUT CONTRAST - 09/05/2024 "IMPRESSION: Suspected left MCA-territory ischemic infarction with stable left temporal hemorrhagic conversion and mild local mass effect. MRI would be of benefit for further evaluation." I have reviewed the following Diagnostic Tests and noted significant findings as follows: EKG 09/05/24: NSR LABS: Labs reviewed as indicated below: Recent Results (from the past 24 hours) MRSA SCREEN, PCR Collection Time: 09/05/24 1:57 PM Result Value Ref Range MRSA PCR Result Negative Negative BASIC METABOLIC PANEL Collection Time: 09/05/24 2:07 PM Result Value Ref Range BUN 20 6 - 20 mg/dL CREATININE 1.7 (H) 0.6 - 1.2 mg/dL EGFR 39 (L) >=60 mL/min SODIUM 136 135 - 146 mmol/L POTASSIUM 4.3 3.5 - 5.1 mmol/L CHLORIDE 102 98 - 107 mmol/L CO2 20 (L) 22 - 32 mmol/L ANION GAP 14 7 - 15 mmol/L GLUCOSE 169 (H) 70 - 120 mg/dL CALCIUM 8.8 8.4 - 10.2 mg/dL PHOSPHORUS Collection Time: 09/05/24 2:07 PM Result Value Ref Range Phosphorus 3.3 2.5 - 4.8 mg/dL MAGNESIUM Collection Time: 09/05/24 2:07 PM Result Value Ref Range Magnesium 1.9 1.5 - 2.6 mg/dL CALCIUM, IONIZED, WHOLE BLOOD Collection Time: 09/05/24 2:07 PM Result Value Ref Range Calcium, Ionized 1.14 1.13 - 1.32 mmol/L HEPATIC FUNCTION PANEL Collection Time: 09/05/24 2:07 PM Result Value Ref Range Albumin 4.1 3.8 - 5.0 g/dL AST 17 10 - 50 U/L Alkaline Phosphatase 85 35 - 130 U/L ALT 15 10 - 50 U/L Bilirubin, Total 0.6 <=1.2 mg/dL Bilirubin, Direct 0.2 0.0 - 0.3 mg/dL Protein 6.8 6.0 - 8.3 g/dL APTT Collection Time: 09/05/24 2:07 PM Result Value Ref Range aPTT 30 21 - 38 seconds PT INR Collection Time: 09/05/24 2:07 PM Result Value Ref Range Prothrombin Time 14.3 11.6 - 15.2 seconds INR 1.1 0.8 - 1.2 TYPE AND SCREEN Collection Time: 09/05/24 2:07 PM Result Value Ref Range ABO O Rh Negative Red Blood Cell Antibody Screen Negative Specimen Expiration Date 09/08/2024 23:59 CBC Collection Time: 09/05/24 2:07 PM Result Value Ref Range WBC 11.61 (H) 4.00 - 10.80 K/uL RBC 4.04 4.50 - 5.25 M/uL HGB 11.6 (L) 14.0 - 16.8 g/dL HCT 35.6 (L) 40.0 - 48.4 % MCV 88.1 82.0 - 99.5 fL MCH 28.7 27.0 - 34.0 pg MCHC 32.6 32.0 - 36.0 g/dL RDW 13.0 11.5 - 15.5 % PLT 191 140 - 400 K/uL MPV 10.7 6.6 - 11.1 fL nRBCs 0 <=0 /100 WBCs DIFFERENTIAL, AUTOMATED Collection Time: 09/05/24 2:07 PM Result Value Ref Range WBC 11.61 (H) 4.00 - 10.80 K/uL Neutrophils % 86.3 (H) 40.0 - 75.0 % Lymphocytes % 9.0 (L) 18.0 - 42.0 % Monocytes % 3.4 1.0 - 11.0 % Eosinophils % 0.5 0.0 - 6.0 % Basophils % 0.3 0.0 - 2.0 % Immature Granulocytes % 0.5 0.0 - 2.0 % Absolute Neutrophils 10.00 (H) 1.80 - 7.70 K/uL Absolute Lymphocytes 1.05 1.00 - 4.80 K/ul Absolute Monocytes 0.40 0.00 - 1.10 K/uL Absolute Eosinophils 0.06 0.00 - 0.70 K/uL Absolute Basophils 0.04 0.00 - 0.20 K/uL Absolute Immature Granulocytes 0.06 0.00 - 0.20 K/uL ABO/RH Collection Time: 09/05/24 2:07 PM Result Value Ref Range ABO O Rh Negative TEG (THROMBOELASTOGRAPH) Collection Time: 09/05/24 2:56 PM Result Value Ref Range Reaction Time 6.2 2.5 - 8.3 minutes Kinetics Time 1.5 0.5 - 3.7 minutes Alpha Angle 68.6 46.8 - 78.4 degrees Maximum Amplitude 69.3 50.6 - 72.5 mm Coagulation Index 1.3 -3.0 - 3.0 Percent Lysis 30 0.2 0.0 - 7.5 % TEG (THROMBOELASTOGRAPH), HEPARINASE Collection Time: 09/05/24 2:56 PM Result Value Ref Range Reaction Time 6.4 2.5 - 8.3 minutes Kinetics Time 1.5 0.5 - 3.7 minutes Alpha Angle 69.6 46.8 - 78.4 degrees Maximum Amplitude 71.5 50.6 - 72.5 mm Coagulation Index 1.5 -3.0 - 3.0 Percent Lysis 30 0.0 0.0 - 7.5 % CONSIDERATION OF ACUTE STROKE THERAPIES: IV Thrombolysis Exclusion Criteria: - Acute intracranial hemorrhage IV Thrombolysis Relative Exclusion Criteria: - None IV Thrombolytic Therapy Considerations and Discussion: Patient is not eligible for IV thrombolytic therapy due to having the exclusion criteria above, andrisk to benefit is considered unfavorable. IV Thrombolysis Administration Recommendation: Do not administer IV thrombolytic agent. See any additional recommendations below for acute stroke care. Reason for delay in thrombolytic initiated > 30 minutes after hospital arrival: None. Endovascular Therapy Exclusion Criteria: - No evidence of a causative large vessel occlusion on vascular imaging Endovascular Therapy Relative Exclusion Criteria: - None Endovascular Therapy Assessment: - Patient is not a candidate for endovascular acute stroke therapy due to the above exclusion criteria, and risk to benefit is considered unfavorable. Reason for delay in endovascular therapy: None. IMPRESSION: 89 yo male with PMH of prior stroke, ND, CAD with stenting, who presented to [facility] due to altered mental status and agitation this AM with LKW yesterday evening; found to have acute intraparenchymal hemorrhage in the L temporal lobe. Transferred to [facility] for NSICU level of care. NIHSS of 10; deficits at this time are waxing and waning mental status, mix of receptive and expressive aphasia, question of LE weakness vs not following commands. CTA and MRI not yet completed, etiology unclear at this time; differential includes CAA, vascular malformation, ischemia with hemorrhagic transformation, or malignancy. RECOMMENDATIONS / PLAN: L temporal IPH Unclear of 2/2 hemorrhagic transformation or other etiology - CTA head/neck to assess for vascular abnormalities - MRI w w/o contrast to assess for ischemia, malignancy - Control HTN for SBP <140 - Q1h neuro checks - No seizure-like activity reported, no need for LTM at this time - STAT CTH for acute change in mental status or new neuro deficits - Telemetry to assess for cardiac arrhythmias. - Aggressively treat fevers with Tylenol and/or external cooling. - Aggressively treat blood glucose for goal glucose 80-150 mg/dL, using insulin infusion if necessary. - Keep head of bed > 30 degrees if tolerable. - Hold all anticoagulation and antiplatelet agents. - Avoid hypotonic fluids. - NPO until nursing bedside dysphagia screen. - DVT prophylaxis with TEDs and SCDs. - PT, OT, speech therapy consults when appropriate. Stroke Checklist: DVT Prophylaxis: receiving mechanical, but chemical contraindicated, reason: hemorrhage Antithrombotic Therapy: contraindicated, reason: hemorrhage Atrial Fibrillation or Flutter: no Statin: please order the following statin or document contraindication to: high intensity statin for LDL <70 Stroke Education: could not be provided due to: patient has altered mental status and no family at bedside Rehab Therapy Plan: O.T., P.T., and Speech Additional Stroke Care (or Document Contraindication) as Follows: Bedside dysphagia screen; if patient does not pass, maintain NPO and order formal speech evaluation Lab work including CBC, CMP, PT/INR, aPTT Markers of cardiac ischemia (eg. Troponin) and obtain EKG Lipid panel and initiate high intensity statin therapy for LDL goal less than 70 Control blood sugar for goal less than 180, and preferably less than 140, and check HbA1c P.T./O.T./Speech/Rehabilitation consultations Stroke education (contact stroke nurse if necessary) Dysphagia Screen prior to any oral intake: not done - bedside nurse to administer dysphagia screen Patient Has Decision Making Capacity: no, reason: AMS Code Status: Full Code The patient was examined and was discussed with Dr. Loo. Cosigned by Lizbet Mena MD at 09/06/2024 6:17 AM EST Associated attestation - Lizbet Mena MD - 09/06/2024 6:17 AM EST I saw and evaluated the patient 09/05/24. I have reviewed the resident/fellow physician note and agree. Acute left temporal ICH of unknown etiology that looks stable on repeat CT. No evident vessel malformation, or LVO per CTA. Based on cortical location and patient's age, CAA is on the differential though he has multiple risk factors including prior stroke and HTN, hence ischemic stroke with hemorrhagic transformation and hypertensive angiopathy are also considered. Needs further evaluation with MRI with and without contrast. * Haider Quinn MD - 09/05/2024 2:03 PM ESTAssociated Order(s): NEUROSURGERY CONSULT IP CONSULT - Neurosurgery [facility]-[address] [address] Name: Goran Hester Location: [facility] A436/A Date: 09/05/2024 Time: 2:03 PM REQUESTING SERVICE: Critical Care Medicine REASON FOR CONSULT: "Evaluation and recs for intraparenchymal hemorrhage" HPI: Goran Hester is a 89 year old, right-handed male with an unknown past medical history; presents to [facility] via transfer from an outside hospital after presenting with an altered mental status. Medical imaging completed at the outside hospital showed a left temporal intraparenchymal hemorrhage. The patient was transferred to [facility] for definitive care. 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 The patient was unable to participate in any history. Patient's son at bedside was able to give limited information regarding the current events. No known blood thinning medications. HISTORY: Past Medical History: No past medical history on file. Past Surgical History: No past surgical history on file. Social History: Social History Tobacco Use Smoking status: Former Types: Cigarettes Smokeless tobacco: Not on file Substance Use Topics Alcohol use: Never Drug use: Not on file Family History: No family history on file. Current Hospital Medications: Note that completed medications (per the MAR) continue to display for 24 hours. Ordered medicationsto be given in the future also display. Current Facility-Administered Medications Medication Dose Route Frequency Provider Acetaminophen (Ofirmev) inj 1,000 mg 1,000 mg Intravenous Q8H Power Barba MD chlorHEXIDINE (Periogard) 0.12 % oral rinse 15 mL 15 mL Oral mucosal membrane BID (799,1999) Power Barba MD Famotidine (Pepcid) inj 20 mg 20 mg IV Push Q12H Power Barba MD Isolyte-S pH 7.4 infusion Intravenous Continuous Power Barba MD labetalol (Trandate) inj 10 mg 10 mg Intravenous Q1H PRN Philip Gabriel MD niCARdipine (CARDENE) 20 mg in 200 mL saline infusion 5 mg/hr Intravenous Continuous Cari, Richard Herman MD Oral Hygiene: Mouth Swab with dentifrice Oral Q4H Limited (00;04;12;16) Power Barba MD oxygen GAS Inhalation Oxygen Power Barba MD sodium chloride 0.9 % flush peripheral lucy 3 mL 3 mL IV Push Q8H Power Barba MD Allergies: Patient has no known allergies. ROS: Unable to obtain due to patient status PHYSICAL EXAMINATION: Most Recent Vital Signs: BP: 142 mmHg/73 mmHg (09/05/24 1345) Pulse: 68 (09/05/24 1400) Resp: 16 (09/05/24 1400) Temp: 37.28 C (09/05/24 1400) Temp Summary: Temp Min: 37.3 C (99.1 F) Max: 37.3 C (99.1 F) SpO2: 96 % (09/05/24 1400) O2 flow rate: 2 L/MIN (09/05/24 1400) Supplemental O2 Delivery: Nasal Cannula (09/05/24 1400) Vital Signs Over Last 24 Hours: Systolic BP: Most Recent Systolic BP Av mmHg Min: 142 mmHg Max: 142 mmHg Temperature: Most Recent Temperature Av.3 C Min: 37.28 C Max: 37.28 C Pulse: Pulse Av.5 Min: 68 Max: 69 Respirations: Resp Av.5 Min: 16 Max: 25 SpO2: SpO2 Av % Min: 88 % Max: 96 % Patient found lying on hospital bed; NAD Opens eyes to voice Limited verbal response No obvious facial asymmetry Does not follow commands Able to appreciate some movement of the LUE, +tone Moving RUE without issue Withdrawals in BLE LABS: Labs reviewed as indicated below: Component Latest Ref Rng 09/05/2024 WBC 4.00 - 10.80 K/uL 11.61 (H) Neutrophils % 40.0 - 75.0 % 86.3 (H) Lymphocytes % 18.0 - 42.0 % 9.0 (L) Monocytes % 1.0 - 11.0 % 3.4 Eosinophils % 0.0 - 6.0 % 0.5 Basophils % 0.0 - 2.0 % 0.3 Immature Granulocytes % 0.0 - 2.0 % 0.5 Absolute Neutrophils 1.80 - 7.70 K/uL 10.00 (H) Absolute Lymphocytes 1.00 - 4.80 K/ul 1.05 Absolute Monocytes 0.00 - 1.10 K/uL 0.40 Absolute Eosinophils 0.00 - 0.70 K/uL 0.06 Absolute Basophils 0.00 - 0.20 K/uL 0.04 Absolute Immature Granulocytes 0.00 - 0.20 K/uL 0.06 WBC 4.00 - 10.80 K/uL 11.61 (H) RBC 4.50 - 5.25 M/uL 4.04 HGB 14.0 - 16.8 g/dL 11.6 (L) HCT 40.0 - 48.4 % 35.6 (L) MCV 82.0 - 99.5 fL 88.1 MCH 27.0 - 34.0 pg 28.7 MCHC 32.0 - 36.0 g/dL 32.6 RDW 11.5 - 15.5 % 13.0 PLT 140 - 400 K/uL 191 MPV 6.6 - 11.1 fL 10.7 nRBCs <=0 /100 WBCs 0 BUN 6 - 20 mg/dL 20 CREATININE 0.6 - 1.2 mg/dL 1.7 (H) EGFR >=60 mL/min 39 (L) SODIUM 135 - 146 mmol/L 136 POTASSIUM 3.5 - 5.1 mmol/L 4.3 CHLORIDE 98 - 107 mmol/L 102 CO2 22 - 32 mmol/L 20 (L) ANION GAP 7 - 15 mmol/L 14 GLUCOSE 70 - 120 mg/dL 169 (H) CALCIUM 8.4 - 10.2 mg/dL 8.8 Prothrombin Time 11.6 - 15.2 seconds 14.3 INR 0.8 - 1.2 1.1 Phosphorus 2.5 - 4.8 mg/dL 3.3 Magnesium 1.5 - 2.6 mg/dL 1.9 Calcium, Ionized, Whole Blood 1.13 - 1.32 mmol/L 1.14 Legend: (H) High (L) Low IMAGING: My Interpretation of Current Images: CT head showing a left MCA territory ischemic infarct with a left temporal hemorrhagic conversion with local mass effect COUNSELING TIME: I spent approximately 60 minutes with this patient greater than half the time was spent reviewing diagnosis, physical exam, imaging, and treatment IMPRESSION: 89 year old, right-handed male with an unknown past medical history; presented at outside hospital with altered mental status and found to have a left temporal intraparenchymal hemorrhage, ICH score 2 (GCS 10, Age 89) that has likely a 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 As such, there may be misspellings, word substitutions, or other variations that should not change the essence of the clinical content of this encounter note. If there is need for further clarification, please direct questions to the provider listed above.) I did not see the patient, but I have reviewed the resident/fellow physician documentation and was readily available on date of service. * Joseph Sanchez DO - 09/05/2024 11:51 AM EST please call the transfer center for a call at [phone] ext [phone] re: Goran Hester DX: spontaneous intracranial head bleed- no trauma From: [facility] ED Received the above message via [place] Text Returned call to the telephone number provided Discussed with ER provider, 89yo male AAOx4 at baseline, patient was well last night prior to goingto bed but this AM demonstrated changes in mentation. Not answering questions appropriately. CT brain without contrast reveals left temporal lobe intraparenchymal hemorrhage approx 4x3 cm. No reported trauma. ER provider reports family wants all measures taken/full heroics. Recommend emergent transfer to [facility] for further monitoring and available NSG/endovascular services Communicated directly with ICU team and NSG/endovascular team documented in this encounter Nursing Notes * Jillian Merida RN - 09/21/2024 10:08 AM EST This nurse called attempted to call report by telephone at 10:00 am to [facility] and phone went unanswered. Report was attempted to be given through telephone a second time at 10:10 am and phone went unanswered on second attempt. * Chelsi Han RN - 09/20/2024 9:30 PM EST marine oiler CM paged to clarify dc time for 09/21/24 and discuss mode of transport. SonJose Antonio called and unsure if dc time is 1000 or 1400. Son does not want want a repeat incident of Pt returning to unit bc of facility's inability to accept d/t Pts confusion. Concern was brought up about mode of transport being a wc van and Pts increased confusion and patient's safety. Awaiting a response. * Jillian Merida RN - 09/20/2024 6:59 PM EST Patient was scheduled to be discharged to SNF at 1400. [facility] picked up patient as scheduled and upon calling report to facility, this nurse was told that they were not accepting new admissions due to COVID-19 outbreak. Patient was promptly returned to [facility] AP 4 at 1700 by EMS after communication was forwarded. Care team members along with family of patient notified. Care management made aware along with patient's son. Upon returning, EMS reported that patient unbuckled himself from backseat of the van and was not compliant in sitting back down. * Delores Key RN - 09/11/2024 11:41 PM EST At approximately 2300 pt was unable to maintain oxygen saturations >92% on 6L NC and becoming more somnolent w/ increased work of breathing. Pt placed on non- rebreather and BIOMEDICAL SERVICE ENGINEER was called- primaryservice and respiratory therapy at the bedside within minutes. PT placed on HFNC and lasix administered. IV labetalol given for hypertension. * Tierra Sahu RN - 09/05/2024 3:49 PM EST Dual Licensed Skin Assessment completed by Tierra Pearl and Mayda Poole The patient is/has a N/A Skin Breakdown (includes non blanchable erythema): No Right knee scab Left underwood scab Dry skin with scattered ecchymosis and small scabs documented in this encounter Miscellaneous Notes * Ancillary Progress Note - Susan Butler RN - 09/21/2024 9:25 AM EST CARE MANAGEMENT - ADULT DISCHARGE NOTE [facility]-[address] [address] Name: Goran Hester Location: [facility] A476/A Date: 09/21/2024 Time: 9:26 AM The following coordination of care and discharge plan has been coordinated with the care team, patient, family and/or caregiver according to the patients needs and preferences. Discharge Discharge Second Notice Important Message from Medicare delivered: Yes (09/20/24911) Date Delivered: 09/20/24 (09/20/24911) Retain copy in EHR: Yes (09/20/24911) Was Caregiver/Family/Facility contacted regarding discharge: Yes (09/20/24911) Discharge Transportation: Wheelchair Van (09/20/24911) Date of scheduled discharge transportation: 09/20/24 (09/20/24911) Time of scheduled discharge transportation: 1400 (09/20/24911) Patient declined post-hospital transition of care recommendation: N/A (09/20/24911) Final Discharge Plan (Complete only at time of Discharge): SNF (09/20/24912) Destination - Admitted Since 09/05/2024 Service Provider Services Address Phone Fax Patient Preferred Last Updated [facility] [address] [place] [address] [phone] -- Susan Butler, [place] 09/19/2024 1326 Narrative: Discharge destination time-out called during BOOST rounds, all parties agreeable with transition plan of care. BLS transport was arranged as Goran attempted to unbuckle his seatbelt in wc van yesterday. BLS transport claimed by Jordyn Durán for 1030. Facility was updated, son Jose Antonio was also. * Care Plan - Blayne Mcfadden RN - 09/21/2024 5:21 AM EST Clinical Goal(s): patient will be free from falls (09/20/24 2300) Possible barriers to meeting goal(s)/advancing plan of care: pt condition Stability of the patient: Moderately stable - low risk of patient condition declining or worsening Summary regarding today's goal(s): Met: no falls Recommendations: cont poc * Care Plan - Jillian Merida RN - 09/20/2024 1:01 PM EST Clinical Goal(s): Patient will be free from falls. (09/20/24 0700) Possible barriers to meeting goal(s)/advancing plan of care: Adequate for discharge Stability of the patient: Moderately stable - low risk of patient condition declining or worsening Summary regarding today's goal(s): Met: Adequate for discharge Recommendations: Adequate for discharge * Ancillary Progress Note - Mariya Jewell, [place] - 09/20/2024 11:22 AM EST PROGRESS NOTE - Speech-Language Pathology [facility]-[address] [address] Name: Goran Hester Location: [facility] A476/A Date: 09/20/2024 Time: 11:22 AM Patient Status: Inpatient Insurance: Payor: MEDICARE / Plan: MEDICARE A AND B / Product Type: *No Product type* / Patient Age: [age] year old Pt seen this date to assess diet advancement and for speech tx Last seen 09/13 with recommendations for NPO, however pt placed on minced and moist by medical team Pt's daughter at bedside who assists as historian of information Swallowing: Presented pt with trials of thin, soft & bite sized, and regular solids Oral phase functional across consistencies, however slight impulsivity noted requiring cues to reduce rate of intake Pharyngeal phase inferred, no overt s/sx of aspiration with trialed consistencies Communication goals: -Pt will be AAOx4 independently GOAL IN PROGRESS: AAOx1 to person, however not oriented to place or time despite max cues -Pt will recall novel information in 4/5 opportunities given ~5 minute delay GOAL IN PROGRESS: 0/5 despite max cues as pt with extreme difficulty attending to structured task -Pt will complete functional math and time management problems in 2/3 opportunities given min cues GOAL IN PROGRESS: 1/3 with max cues to complete task Pt remains confused with altered mentation. Bouts of intermittent agitation when trying to orient him. Pt believed he was at [facility] and that therapist was a student there. Difficulty attending to structured tasks as he repeatedly asked therapist questions about campus and classes. Required max redirections to task with minimal benefit. Pt's daughter reported discharge to rehab in [place]. Diet Recommendations: -Regular solids -Thin liquids -Meds as tolerated -Close assistance with meals to provide cues for slow intake * Care Plan - Waqas Castillo RN - 09/19/2024 10:18 PM EST Clinical Goal(s): Patient will be free from falls (09/19/241929) Possible barriers to meeting goal(s)/advancing plan of care: None Stability of the patient: Moderately stable - low risk of patient condition declining or worsening Summary regarding today's goal(s): Met: Patient remains free from falls Recommendations: Continue to utilize falls precautions, assess patient for needs and desires, assess patient for the presence of pain and provide interventions as needed, ensure patient repositioning, hourly rounding, ensure call alfred within reach * Care Plan - Melissa Islas RN - 09/19/2024 7:45 PM EST Clinical Goal(s): Patient will be free from falls (09/19/24 1930) Possible barriers to meeting goal(s)/advancing plan of care: impulsive behavior Stability of the patient: Moderately stable - low risk of patient condition declining or worsening Summary regarding today's goal(s): Met: pt remained free from falls by end of shift Recommendations: continue hourly rounding * Ancillary Progress Note - Cliff Wallace II, RDN - 09/19/2024 3:19 PM EST CLINICAL NUTRITION CONSULT/PROGRESS NOTE [facility]-[address] [address] Name: Goran Hester Location: [facility] A476/A Date: 09/19/2024 Time: 3:22 PM How patient was identified (select 2): Medical record number and Name Discussed in interdisciplinary rounds: Telma Hester is a 89 year old male being seen for follow-up Primary Diagnosis: Admitted with ICH Other pertinent information: Patient did not provide nutrition history today. Per nursing has been eating well. NUTRITION ASSESSMENT: Past medical/surgical history and medications reviewed. Food/Nutrition-Related History Diet: Minced & Moist Food, Level 5 Heart Healthy, 2 gm Sodium Previously followed diet: Regular Food Allergies/Intolerances: none Adult Energy Intake: No significant decrease Percentage of meal intake: Greater than 75% Oral Nutrition Supplement (ONS): none Pertinent medications/vitamins/minerals/supplements: docusate-colace, lasix, novolog, miralax, senna, sodium bicarbonate, spironolactone, Pertinent Biochemical Data: There are no biochemical abnormalities requiring a change in the nutrition plan of care. Nutrition-Focused Physical Findings: Appearance: WNWD Respiratory support: Supplemental O2 Delivery: Nasal Cannula Nasal/Oral: No issues identified Digestive: No issues identified Last Bowel Movement: 09/18/24 (per epic) (09/19/24 0719) Cognition: Confused Skin: Intact Enteral access: none Nutrition Focused Physical Exam: NFPE completed on 09/19/2024 Subcutaneous Fat Loss: No significant subcutaneous fat loss noted. Muscle Loss: No significant muscle loss noted. Edema Location: Right Lower Extremity (RLE);Left Lower Extremity (LLE) (09/18/241999) Anthropometrics Measurements Height: 175.3 cm (5' 9") (09/05/24 1400) Admission weight: 95 kg Weight: 93.7 kg (206 lb 8 oz) (09/19/24 0531) Body mass index is 30.49 kg/m. Usual Body Weight: 95-96 kg [place] weight: 76.5 kg [place] Weight Based on BMI: 24.9 Interpretation of Weight Change Prior to Admission: No recent/significant weight change Weight Changes Since Admission: down 1.3 kg Nutrition Prescription: Energy needs: 20-25 Kcal/kg Based on admission weight Kcal/day: 7856-4591 Protein needs: 1.0-1.2 gm/kg Based on admission weight gm/day: 95-114 Fluid needs: 25 ml/kg Based on admission weight mL/day: 2375 Malnutrition: Malnutrition Present: No (09/06/24 1400) NUTRITION DIAGNOSIS: No nutrition diagnosis at this time. Goals: Patient to consume greater than 75 % of daily meals within 7-10 days NUTRITION INTERVENTION/PLAN: Risk/Re-risk Assessment completed. Clinical Nutrition Recommendations: Diet: Continue current nutrition plan NUTRITION MONITORING AND EVALUATION: Nursing documentation flowsheets for percent meal intake Lab values warranting change with MNT Weight for trends Plan follow-up: Will follow and adjust nutrition plan of care as medical condition requires. Please contact for change(s) in patient condition requiring earlier intervention. * Ancillary Progress Note - Susan Butler RN - 09/19/2024 1:27 PM EST CARE MANAGEMENT - ADULT DISCHARGE NOTE [facility]-[address] [address] Name: Goran Hester Location: [facility] A476/A Date: 09/19/2024 Time: 1:27 PM The following coordination of care and discharge plan has been coordinated with the care team, patient, family and/or caregiver according to the patients needs and preferences. Discharge Discharge Second Notice Important Message from Medicare delivered: Yes (09/19/241324) Date Delivered: 09/19/24 (09/19/24 132) Retain copy in EHR: Yes (09/19/241324) Was Caregiver/Family/Facility contacted regarding discharge: Yes (09/19/241324) Discharge Transportation: Wheelchair Van (09/19/241324) Date of scheduled discharge transportation: 09/20/24 (09/19/241324) Time of scheduled discharge transportation: 1400 (09/19/241324) Patient declined post-hospital transition of care recommendation: N/A (09/19/241324) Final Discharge Plan (Complete only at time of Discharge): SNF (09/19/241325) Destination - Admitted Since 09/05/2024 Service Provider Services Address Phone Fax Patient Preferred Last Updated [facility] [address] [place] [address] [phone] -- Susan Butler, RN 09/19/20246 Narrative: Discharge destination time-out called during BOOST rounds, all parties agreeable with transition plan of care. I have conducted the discharge appointment with the family (ph: ), Care Management, nursing, and provider on 09/19/2024 at 1:28 PM. This discussion occurred phone. Meds to beds offered: no. The following post care is planned: SNF/IRF. I encouraged the patient and/or family to call the hospital with any questions or concerns about the hospital admission. CM discussed transport options, Goran qualifies for van, son Jose Antonio agrees' with payment. Transport claimed for 1399. Facility updated. * Ancillary Progress Note - Vita Bustamante COTA/Yadi - 09/19/2024 11:01 AM EST PROGRESS NOTE - Occupational Therapy [facility]-[address] [address] Name: Goran Hester Location: [facility] A476/A Date: 09/19/2024 Time: 11:01 AM Goran Hester is a 89 year old male. Patient Status: Inpatient Insurance: Payor: MEDICARE Plan: MEDICARE A AND B Product Type: *No Product type* Payor: [facility] ([employer]) Plan: SECURITY 65 MEDICARE SUPPLEMENT Product Type: *No Product type* Patient Seen: at bedside, nursing cleared patient for therapy Patient Identified By: Name, ID Band and Date Diagnosis: ICH (09/19/24 110) Status of treatment: Treatment completed (09/19/24 110) Orders: OT evaluation and treatment (09/19/24 110) Weight Bearing Status: Weight bearing as tolerated (09/19/24 110) Precautions: Alarms;Falls;Safety;Oxygen (Intermediate nasal cannula) (09/19/24 110) Total Treatment Time: 24 (09/19/24 110) Subjective: Patient agreeable. Pain: No complaints of pain. Observations Consciousness: Alert (09/19/24 110) Orientation: Person;Place;Time (knew month not year, place with choices) (09/19/24 110) Cognitive Limitations: Attention to task;Impulsivity;Processing;Problem solving;Visual attention (09/19/24 110) Psychosocial: Patient can communicate basic needs (09/19/24 110) Sitting posture: Forward head;Rounded shoulders (09/19/24 1101) Standing posture: Forward head;Rounded shoulders (09/19/24 110) Safety awareness: Needs cueing supervision. (09/19/24 1101) Current Functional Status: Activities of Daily Living: Self Care Grooming: Supervision (wash face) (09/19/24 1101) Dressing Lower Body: Moderate Assistance (don scrub pants, doff/don socks with contact guard assistance) (09/19/24 110) Functional Ambulation Assistive Device: Rolling walker (09/19/24 1101) Distance in feet:: 10 (09/19/24 110) Level of Assistance: Minimal Assistance (09/19/24 110) Bed Mobility Supine-Sit: Minimal Assistance (09/19/24 1101) Sit-Supine: Minimal Assistance (09/19/24 1101) OT Transfers Sit-Stand: Moderate Assistance (09/19/24 110) Stand-Sit: Moderate Assistance (09/19/241100) Toilet: Moderate Assistance (09/19/241100) Balance Sit (Static): Fair (09/19/241100) Sit (Dynamic): Fair (-) (09/19/241100) Stand (Static): Fair (-) (09/19/241100) Stand (Dynamic): Poor (+) (09/19/241100) Patient Education Education Topic: Role of OT (09/19/241100) Review of Precautions: Safety;Fall (09/19/241100) Method of Education: Verbalized to patient (09/12/24 7793) Education Provided to: Patient (09/19/241100) Response to Education: Receptive and agreeable to education (09/19/241100) Barriers to learning: Medical status (09/19/241100) Preferred learning method: Combination (09/19/241100) Alarm Status Patient positioned in: Bed (09/19/241100) With: Bed alarm intact and functioning and call alfred in reach (09/19/241100) Treatment Provided: Self Residential Management Trainin minutes Deficits requiring O.T. treatment needs: ADL/self- care;Balance;Endurance;Functional mobility;Safety;Upper extremity strength;Weakness (09/19/241100) Assessment: Patient supine in bed upon arrival, pleasant and cooperative. Significantly hard of hearing. Able to follow commands consistently however kept eyes closed for majority of session. Bed mobility performed with minimal assistance. Once seated on edge of bed, patient completed ADLs with above levels of assistance. Required contact guard assistance to maintain balance while performing ADLs. Sit to stand transfers completed from varying surfaces with moderate assistance, utilized grab barin bathroom to rise from toilet. Functional mobility demonstrated using rolling walker with minimalassistance and rolling walker management. Requested to return to bed at conclusion of therapy session, left with all needs met. Please consider post-acute care services which may include home health,senior care, outpatient therapy or inpatient rehabilitation. The level of care will be determined in collaboration with patient, family/caregiver and care team members. Plan: To continue plan of care. Anticipated Frequency (on eval): 3 to 5 times per week (09/19/241100) Equipment Equipment used in Therapy: Rolling walker (09/19/241100) AM-PAC Help From Another Person Eating Meals: A little (09/19/241100) Help From Another Person Taking Care of Personal Grooming: A little (09/19/241100) Help From Another Person To Put On/Take Off Upper Body Clothing: A little (09/19/241100) Help From Another Person To Put On/Take Off Lower Body Clothing: A lot (09/19/241100) Help From Another Person Toileting: A lot (09/19/241100) Help From Another Person Bathing: A lot (09/19/241100) OT AM-PAC Score: 15 (09/19/241100) OT AM-PAC t-Scale Score: 34.69 (09/19/241100) HLM (Highest Level of Mobility) Goal: Level 4 move to chair/commode (09/19/241035) A portion of this AM-PAC assessment not scored based on functional assessment; rather clinical decision making utilized based on current findings and/or prior level of function. Please refer to future AM-PAC calculations of functional ability as they become available. * Ancillary Progress Note - Belén Peralta PTA - 09/19/2024 10:36 AM EST PROGRESS NOTE - Physical Therapy [facility]-[address] [address] Name: Goran Hester Location: [facility] A476/A Date: 09/19/2024 Time: 10:36 AM Goran Hester is a/an 89 year old male. Patient Status: Inpatient Insurance: Payor: MEDICARE Plan: MEDICARE A AND B Product Type: *No Product type* Payor: [facility] [place] Plan: SECURITY 65 MEDICARE SUPPLEMENT Product Type: *No Product type* Patient Seen: at bedside, nursing cleared patient for therapy Patient Identified By: Name, ID Band and Date Diagnosis: ICH (09/19/24 1036) Status of treatment: Treatment completed (09/19/241035) Orders: PT evaluation and treatment (09/19/241035) Precautions: Alarms;Falls;Safety;Oxygen ([place], 6L O2) (09/19/241035) Total Treatment Time--free text: 24 (09/19/241035) Subjective: Patient was agreeable to work with physical therapy services. Pain: No complaints of pain P.T. Bed Mobility Supine-Sit: Minimal Assistance (09/19/241035) Sit-Supine: Minimal Assistance (09/19/241035) Transfers Sit-Stand: Moderate Assistance (09/19/241035) Stand-Sit: Moderate Assistance (09/19/241035) Ambulation: Distance ambulated (feet): 25 + 25 Assistive Device: Rolling walker Assist: Minimal Assistance Balance Sit (Static): Fair (09/19/241035) Sit (Dynamic): (fair -) (09/19/241035) Stand (Static): (fair -) (09/19/241035) Stand (Dynamic): (poor +) (09/19/241035) Patient and or Family Goal(s): to get well Topic of Education: Safety with mobility Method of Education: Verbal discussion and explanation provided to patient: demonstrated the exercise and or task and had reduced level of understanding due to current cognitive stats Treatment Provided: Therapeutic Activities 10 minutes: bed mobility training transfer training toilet transfer training Gait Training 14 minutes: gait training with rolling walker Alarm Status Patient positioned in: Bed (09/19/241035) With: Bed alarm intact and functioning and call alfred in reach (09/19/241035) Patient Education Review of Precautions: Safety;Fall (09/19/241035) Safety Awareness: Patient can communicate basic needs;Needs cueing supervision (09/19/241035) Preferred learning method: Combination (09/19/241035) Barriers to learning: Medical Status;Cognition;Hearing (09/19/241035) Method of Education: Verbalized to patient;Patient demonstrated task (09/19/241035) Assessment: Patient was seen supine in bed upon arrival and agreeable to work with physical therapyservices. Patient remained in a lethargic state throughout the session with eyes closed for a majority of the session requiring maximal cues to correct. Patient performed bed mobility with minimal assistance and 3 sit to stand transfers from the bed an the toilet all with moderate assistance and increased cues for hand placement. Patient also ambulated 25 feet from the bed to the toilet, and 25 feet from the toilet to the bed using the rolling walker with a minimal assistance. Throughout ambulation patient was slightly unsteady with increased R LE knee buckling when fatigued requiring a seated rest break in between trials of ambulation this session. Further ambulation differed at this time due to fatigue. Patient continues to progress when working with physical therapy services by increasing ambulatory distances, however continues to be unsteady making him at risk for fall sat this time. Ended session with patient supine in bed with pillows for comfort, bed alarm activated, and call be ll within reach. Patient would continue to benefit from skilled physical therapy services to reach established goals and address deficits stated above. Please consider post-acute care services which may include home health, senior care, outpatient therapy or inpatient rehabilitation. The level of care will be determined in collaboration with patient, family/caregiver and care team members. Deficits requiring P.T. treatment needs: Safety;Mobility;Balance;Weakness;Endurance;Lower extremitystrength (09/19/24 1036) Plan: Continue with current treatment plan established on evaluation. AM PAC Score with Stairs: 15 A portion of this AM-PAC assessment not scored based on functional assessment; rather clinical decision making utilized based on current findings and/or prior level of function. Please refer to future AM-PAC calculations of functional ability as they become available. * Care Plan - Brock Walsh RN - 09/19/2024 1:25 AM EST Clinical Goal(s): Pt will remain free from falls during this shift. (09/18/241999) Possible barriers to meeting goal(s)/advancing plan of care: Impulsiveness. Stability of the patient: Moderately stable - low risk of patient condition declining or worsening Summary regarding today's goal(s): Met: Pt remained free from falls during this shift. Recommendations: Continue fall precautions, bed alarms, CVM monitoring, and hourly rounds. * Care Plan - Melissa Islas RN - 09/18/2024 6:40 PM EST Clinical Goal(s): pt will be free from falls by end of shift (09/18/24 0700) Possible barriers to meeting goal(s)/advancing plan of care: impulsive behavior Stability of the patient: Moderately stable - low risk of patient condition declining or worsening Summary regarding today's goal(s): Met: pt remained free from falls by end of shift Recommendations: continue hourly rounding * Care Plan - Brock Walsh RN - 09/17/2024 2:39 AM EST Clinical Goal(s): Pt will remain free from falls during this shift. (09/16/241999) Possible barriers to meeting goal(s)/advancing plan of care: Generalized weakness, confusion. Stability of the patient: Moderately stable - low risk of patient condition declining or worsening Summary regarding today's goal(s): Met: Pt remained free from falls during this shift. Recommendations: Continue fall precautions, bed alarms, and hourly rounds. * Care Plan - Erma Bowen RN - 09/16/2024 8:15 PM EST Clinical Goal(s): Pt will remain free from falls during this shift. (09/16/241999) Possible barriers to meeting goal(s)/advancing plan of care: weakness, confusion Stability of the patient: Moderately stable - low risk of patient condition declining or worsening Summary regarding today's goal(s): Met: patient remained free from falls throughout the shift Recommendations: continue hourly rounding, continue implementing fall precautions * Ancillary Progress Note - Zakia Plummer RN - 09/16/2024 1:52 PM EST CARE MANAGEMENT - ADULT TRANSITION NOTE [address] [address] Name: Goran Hester Location: [facility] A476/A Date: 09/16/2024 Time: 1:52 PM Risk Stratification Risk Stratification Psycho Social / Medical Concerns Identified: Adjustment to illness/injury;New serious diagnosis (09/06/241421) Accessed Neighborly to connect patients to social care resources: No (09/06/241421) OBRA or OPTIONS needed for placement: No (09/06/241421) Readmission Risk Score: 25.81 (09/16/24 1201) AM-PAC Score With Stairs : 13 (09/16/24 0900) Caregiver Information Emergency Contacts Name Relation Home Work Mobile JOSE ANTONIO HESTER Adult Child [phone] Tonya Waddell Adult Child [phone] Other Contacts None on File Transition of Care Checklist Transition of Care Checklist (aka Readmission Risk Score) Discharge Disposition: ([facility] with his , Rossi.) (09/06/241433) Narrative: CM has been following Patient's hospital course. Patient discussed in IDT rounds. They are not medically stable for discharge at this time . Still anticipating d/c to SNF tomorrow 09/17. Discharge plan evolving - CM will continue to follow for discharge needs. Ride pending in roundtrip for 1pm on 09/17 BLS Left VM for Rika Ohara [facility] updated on same Anticipated Transportation at Discharge: [facility] Patient/Family Expectations: SNF Transition Planning Transition Planning Transition Plan/Considerations: Needs uncertain at this time - Continue monitoring for needs;Discussed at Interdisciplinary Team / Boost Rounds (09/06/241433) CMS Quality Rating provided to patient: No (09/06/241433) Repisodic Choice provided to patient: No (09/06/241433) Transition plan discussed with - Enter name and phone #: Pt's son Jose Antonio and IDT (09/06/241433) Insurance Considerations: N/A (09/06/241433) Post-Acute Care needs identified and Referrals Completed: (undtermined at this time.) (09/06/241433) Care Management will continue to monitor and assist with discharge planning needs * Care Plan - Erma Bowen RN - 09/15/2024 6:39 PM EST Clinical Goal(s): patient will remain free from falls throughout the shift (09/15/24 0700) Possible barriers to meeting goal(s)/advancing plan of care: cognitive impairment Stability of the patient: Moderately stable - low risk of patient condition declining or worsening Summary regarding today's goal(s): Met: patient remained free from falls throughout the shift Recommendations: continue hourly rounding, continue implementing fall precautions * Ancillary Progress Note - Chilo Logan PT - 09/15/2024 3:30 PM EST Physical Therapy [address] [address] Name: Goran Hester Location: [facility] A476/A Date: 09/15/2024 Time: 3:30 PM Discussed pt with treatment therapist Belén Peralta PTA. Pt has been progressing with PT, met previousgoals. Updated mobility goals below. Demonstrate Bed Mobility with : Supine to Sit: Supervision Sit to Supine: Supervision Demonstrate Transfers with: Sit to Stand: Supervision Stand to Sit: Supervision Demonstrate Ambulation: Device: Least Restrictive Device as needed Distance in feet: 100 feet Level of Assistance on level surface: Supervision Increase Balance: Fair with Dynamic Standing Time Frame: 10 visits * Ancillary Progress Note - Belén Peralta PTA - 09/15/2024 3:08 PM EST PROGRESS NOTE - Physical Therapy [address] [address] Name: Goran Hester Location: [facility] A476/A Date: 09/15/2024 Time: 3:08 PM Goran Hester is a/an 89 year old male. Patient Status: Inpatient Insurance: Payor: MEDICARE Plan: MEDICARE A AND B Product Type: *No Product type* Payor: [facility] ([facility]) Plan: SECURITY 65 MEDICARE SUPPLEMENT Product Type: *No Product type* Patient Seen: at bedside, nursing cleared patient for therapy Patient Identified By: Name, ID Band and Date Diagnosis: ICH (09/15/24 150) Status of treatment: Treatment completed (09/15/24 150) Orders: PT evaluation and treatment (09/15/24 150) Precautions: Alarms;Falls;Safety;Oxygen (6L O2, [place]) (09/15/24 150) Total Treatment Time--free text: 35 (09/15/241507) Subjective: Patient was agreeable to work with physical therapy services. Pain: No complaints of pain P.T. Bed Mobility Supine-Sit: Contact Guard (09/15/24 150) Sit-Supine: Minimal Assistance (09/15/24 1508) Transfers Sit-Stand: Minimal Assistance (09/15/24 1508) Stand-Sit: Minimal Assistance (09/15/24 1508) Ambulation: Distance ambulated (feet): 12 Assistive Device: Rolling walker Assist: Minimal Assistance regressing to moderate assistance Balance Sit (Static): (fair -) (09/15/24 1508) Sit (Dynamic): (fair -) (09/15/24 1508) Stand (Static): (poor +) (09/15/24 1508) Stand (Dynamic): (poor + to poor) (09/15/24 150) Patient and or Family Goal(s): to get well Topic of Education: Safety with mobility Method of Education: Verbal discussion and explanation provided to patient: verbalized understanding and or agreement of this information and demonstrated the exercise and or task Treatment Provided: Therapeutic Activities 20 minutes: bed mobility training transfer training Gait Training 15 minutes: gait training with no device Alarm Status Patient positioned in: Bed (09/15/24 1508) With: Bed alarm intact and functioning and call alfred in reach (09/15/24 150) Patient Education Review of Precautions: Safety;Fall (09/15/24 150) Review of Exercises: Verbal Exercises Provided;Pt Demonstrated Exercise (09/06/24 1035) Safety Awareness: Patient can communicate basic needs;Needs cueing supervision (09/15/24 1508) Preferred learning method: Combination (09/15/24 150) Barriers to learning: Medical Status;Cognition;Hearing (09/15/24 150) Method of Education: Verbalized to patient;Patient demonstrated task (09/15/24 150) Assessment: Patient was seen supine in bed upon alert however lethargic throughout the session and agreeable to work with physical therapy services. Patient performed bed mobility with contact guard assistance with increase time and cues for body mechanics then took a brief seated rest break on theedge of the bed. Patient continued to performed 2 sit to stand transfers from the bed using the rolling walker to increase stability and a minimal assistance and ambulated 12 feet around the room using the rolling walker with initially a minimal assistance regressing to a moderate assistance with LE fatigue. Throughout ambulation patient was slightly unsteady with decreased RLE coordination and bilateral knee buckling when fatigued. Patient also noted to be impulsive to sit requiring cues for safety awareness. Patient returned to supine with minimal assistance and was left supine in bed with pillows for comfort, bed alarm activated, and call alfred within reach. Patient HR ranged between 92-121 and SPO2 was recorded at 97% after ambulation. Patient continues to progress when working with physical therapy services by increasing ambulatory distances, however requires increased assistance and cues for safety awareness. Patient would continue to benefit from skilled physical therapy services to reach established goals and address deficits stated above. Please consider post- acute care services which may include home health, senior care, outpatient therapy or inpatient rehabilitation.The level of care will be determined in collaboration with patient, family/caregiver and care team members. Deficits requiring P.T. treatment needs: Safety;Mobility;Balance;Weakness;Endurance;Lower extremitystrength (09/15/24 150) Plan: Continue with current treatment plan established on evaluation. AM PAC Score with Stairs: 13 A portion of this AM-PAC assessment not scored based on functional assessment; rather clinical decision making utilized based on current findings and/or prior level of function. Please refer to future AM-PAC calculations of functional ability as they become available. * Ancillary Progress Note - Zakia Plummer RN - 09/15/2024 1:20 PM EST CARE MANAGEMENT - ADULT TRANSITION NOTE [facility]-[address] [address] Name: Goran Hester Location: [facility] A476/A Date: 09/15/2024 Time: 1:20 PM Risk Stratification Risk Stratification Psycho Social / Medical Concerns Identified: Adjustment to illness/injury;New serious diagnosis (09/06/241421) Accessed Neighborly to connect patients to social care resources: No (09/06/241421) OBRA or OPTIONS needed for placement: No (09/06/241421) Readmission Risk Score: 25.95 (09/15/24 1200) AM-PAC Score With Stairs : 15 (09/13/24 0700) Caregiver Information Emergency Contacts Name Relation Home Work Mobile JOSE ANTONIO HESTER Adult Child [phone] Tonya Waddell Adult Child [phone] Other Contacts None on File Transition of Care Checklist Transition of Care Checklist (aka Readmission Risk Score) Discharge Disposition: (Goal is to return home to [facility] where he shares an apartment with his , Rossi.) (09/06/241433) Narrative: CM has been following Patient's hospital course. Patient discussed in IDT rounds. They are not medically stable for discharge at this time because patient in new onset A-fib with RVR. Discharge plan evolving - CM will continue to follow for discharge needs. Spoke with Rika @[facility], still offering bed on Sunday 09/17. Continue to follow. Per Rika at [facility] 1:1 for safety will not delay discharge to her facility. Wean as able. Anticipated Transportation at Discharge: Medical BLS Patient/Family Expectations: SNF Transition Planning Transition Planning Transition Plan/Considerations: Needs uncertain at this time - Continue monitoring for needs;Discussed at Interdisciplinary Team / Boost Rounds (09/06/241433) [facility] Quality Rating provided to patient: No (09/06/241433) Repisodic Choice provided to patient: No (09/06/241433) Transition plan discussed with - Enter name and phone #: Pt's son Jose Antonio and IDT (09/06/241433) Insurance Considerations: N/A (09/06/241433) Post-Acute Care needs identified and Referrals Completed: (undtermined at this time.) (09/06/241433) Care Management will continue to monitor and assist with discharge planning needs * Care Plan - Enma Motta RN - 09/15/2024 5:46 AM EST Clinical Goal(s): pt will remain free from falls/injuries during this shift (09/14/24 2300) Possible barriers to meeting goal(s)/advancing plan of care: chronic illness Stability of the patient: Moderately unstable - medium risk of patient condition declining or worsening Summary regarding today's goal(s): Met: maintained safety Recommendations: continue plan of care, safety and fall precautions, frequent rounds. Problem: Safety & Risk for Injury Goal: Patient will remain free from injury. Outcome: Progressing Problem: Daily Care & Potential Self-Care Deficit Goal: Patient's daily care needs are met. Outcome: Progressing * Ancillary Progress Note - Belén Peralta PTA - 09/14/2024 12:24 PM EST PROGRESS NOTE - Physical Therapy [facility]-[address] [address] Name: Goran Hester Location: [facility] A465/A Date: 09/14/2024 Time: 12:25 PM Attempted to see patient for physical therapy services however discussed with Dr. Valentino and the patient is continuing to be in AFIB with RVR with increased agitation at this time. Will continue to medically hold on services. Will continue to follow patient as able/appropriate. * Ancillary Progress Note - Katty Donovan COTA - 09/14/2024 12:21 PM EST Occupational Therapy Progress Note Goran Hester [facility] A465/[place] [id number] 09/14/2024 Attempted to see patient prior to lunch for Occupational therapy treatment session. Patient continues to be on medical hold per Dr. Valentino due to increased agitation and AFib RVR. Will continue to follow as able and medically appropriate. * Ancillary Progress Note - Katty Donovan COTA - 09/14/2024 9:23 AM EST Occupational Therapy Progress Note Goran Hester [facility] [address] [id number] 09/14/2024 Attempted to see patient today for Occupational therapy treatment session,although Per IDT rounds patient is on medical hold due to being in Afib with RVR at this time. Will continue to follow as able and medically appropriate. Thank you. * Ancillary Progress Note - Belén Peralta PTA - 09/14/2024 9:06 AM EST PROGRESS NOTE - Physical Therapy [facility]-[address] [address] Name: Goran Hester Location: [facility] A465/A Date: 09/14/2024 Time: 9:06 AM Attempted to see patient for physical therapy services however after discussing with Dr. Valentino, charge nurse, and care management patient is currently on a medical hold this morning due to being in AFIB with RVR. Will continue to follow patient as able/appropriate. * Ancillary Progress Note - Mariya Jewell SLP - 09/13/2024 1:25 PM EST PROGRESS NOTE - Speech-Language Pathology [facility]-[address] [address] Name: Goran Hester Location: [facility] A465/A Date: 09/13/2024 Time: 1:25 PM Patient Status: Inpatient Insurance: Payor: MEDICARE / Plan: MEDICARE A AND B / Product Type: *No Product type* / Patient Age: [id number] year old Patient seen this date for cognitive-communication tx Pt currently on regular diet and reports tolerating it well Pt received awake and alert in bed, sitting upright Able to follow commands and answer questions Intermittently confused but pleasant The follow goals were targeted today: Updated communication goals: -Pt will be AAOx4 independently GOAL IN PROGRESS: AAOx3 to person, place with cues, and month (not year). Additionally, pt unsure of why he is here, reports he is here for medical procedure -Pt will recall novel information in 4/5 opportunities given ~5 minute delay GOAL IN PROGRESS: 3/5 with moderate semantic/phonemic cues -Pt will complete functional math and time management problems in 2/3 opportunities given min cues GOAL IN PROGRESS: 2/3 with min cues today from therapist Pt appears to have improved since last seen by speech services. Was pleasant and cooperative, providing history about his family and travels. However, pt still requires cues to be oriented to time, place, and situation. Additionally, he continues with impaired immediate and delayed memory, improvedwith cues. Pt progressing in ability to solve functional math problems, however has delayed response time. ST to continue to follow * Ancillary Progress Note - Zakia Plummer RN - 09/13/2024 11:05 AM EST CARE MANAGEMENT - ADULT TRANSITION NOTE [facility]-[address] [address] Name: Goran Hester Location: [facility] A465/A Date: 09/13/2024 Time: 11:05 AM Risk Stratification Risk Stratification Psycho Social / Medical Concerns Identified: Adjustment to illness/injury;New serious diagnosis (09/06/241421) Accessed [facility] to connect patients to social care resources: No (09/06/241421) OBRA or OPTIONS needed for placement: No (09/06/241421) Readmission Risk Score: 23.08 (09/13/24 0801) AM-PAC Score With Stairs : 6 (09/13/24 0000) Caregiver Information Emergency Contacts Name Relation Home Work Mobile JOSE ANTONIO HESTER Adult Child [phone] Tonya Waddell Adult Child [phone] Other Contacts None on File Transition of Care Checklist Transition of Care Checklist (aka Readmission Risk Score) Discharge Disposition: ([facility] with his , Rossi.) (09/06/241433) Narrative: CM has been following Patient's hospital course. Patient discussed in IDT rounds. They are not medically stable for discharge at this time. Spoke with Rika at [facility], can offer pt a bed on Sunday 09/17, family agreeable to this. Discharge plan evolving - CM will continue to follow for discharge needs. Anticipated Transportation at Discharge: BLS Patient/Family Expectations: SNF Transition Planning Transition Planning Transition Plan/Considerations: Needs uncertain at this time - Continue monitoring for needs;Discussed at Interdisciplinary Team / Boost Rounds (09/06/241433) [facility] Quality Rating provided to patient: No (09/06/241433) Repisodic Choice provided to patient: No (09/06/241433) Transition plan discussed with - Enter name and phone #: Pt's son Jose Antonio and IDT (09/06/241433) Insurance Considerations: N/A (09/06/241433) Post-Acute Care needs identified and Referrals Completed: (undtermined at this time.) (09/06/241433) Care Management will continue to monitor and assist with discharge planning needs * Care Plan - Rae Bajwa RN - 09/13/2024 1:56 AM EST Clinical Goal(s): PT will remain free from injury during my shift. (09/13/24 0000) Possible barriers to meeting goal(s)/advancing plan of care: Problem: Safety & Risk for Injury Goal: Patient will remain free from injury. Outcome: Progressing Problem: Daily Care & Potential Self-Care Deficit Goal: Patient's daily care needs are met. Outcome: Progressing Problem: Risk for Impaired Physical Mobility Goal: Patient will maintain optimal mobility level. Outcome: Progressing Problem: Discharge Barriers Goal: Patient's discharge needs are met. Outcome: Progressing Stability of the patient: Moderately unstable - medium risk of patient condition declining or worsening Summary regarding today's goal(s): Met: PT remained free from injury during my shift. Recommendations: call alfred within reach, Nursing rounds every 1hr, Room free from clutter. * Care Plan - Terri Rojas RN - 09/12/2024 4:32 PM EST Clinical Goal(s): pt will be free from falls or injury during this shift (09/12/24 0700) Possible barriers to meeting goal(s)/advancing plan of care: weakness, stroke dx Stability of the patient: Moderately stable - low risk of patient condition declining or worsening Summary regarding today's goal(s): Met: met Recommendations: continue fall precautions and purposeful hourly rounding * Ancillary Progress Note - Belén Peralta PTA - 09/12/2024 3:43 PM EST PROGRESS NOTE - Physical Therapy [facility]-[address] [address] Name: Goran Hester Location: [address] Date: 09/12/2024 Time: 3:43 PM Goran Hester is a/an 89 year old male. Patient Status: Inpatient Insurance: Payor: MEDICARE Plan: MEDICARE A AND B Product Type: *No Product type* Payor: [employer] [facility] [email or web address]) Plan: [employer] MEDICARE SUPPLEMENT Product Type: *No Product type* Patient Seen: at bedside, nursing cleared patient for therapy Patient Identified By: Name, ID Band and Date Diagnosis: ICH (09/12/241542) Status of treatment: Treatment completed (09/12/241542) Orders: PT evaluation and treatment (09/12/241542) Precautions: Alarms;Falls;Safety;Oxygen (6 L O2, [place] with hearing aids) (09/12/241542) Total Treatment Time--free text: 15 (09/12/241542) Subjective: Patient stated, "No!" Pain: No complaints of pain P.T. Bed Mobility Supine-Sit: Dependent (x2) (09/12/241542) Sit-Supine: Dependent (x2) (09/12/241542) Balance Sit (Static): (poor - to absent) (09/12/241542) Sit (Dynamic): Absent (09/12/241542) Stand (Static): Not Tested (09/12/241542) Stand (Dynamic): Not Tested (09/12/241542) Patient and or Family Goal(s): to get well Topic of Education: Safety with mobility Method of Education: Verbal discussion and explanation provided to patient: verbalized understanding and or agreement of this information and demonstrated the exercise and or task Treatment Provided: Neuromuscular Re-education 15 minutes: balance and postural retraining Alarm Status Patient positioned in: Bed (09/12/241542) With: Bed alarm intact and functioning and call alfred in reach (09/12/241542) Patient Education Review of Precautions: Safety;Fall (09/12/241542) Review of Exercises: Verbal Exercises Provided;Pt Demonstrated Exercise (09/06/245) Safety Awareness: Patient does not verbalize insight of current deficits;Patient does not demonstrates carryover of insight during functional tasks;Patient can communicate basic needs;Needs cueing supervision (09/12/241542) Preferred learning method: Combination (09/12/241542) Barriers to learning: Medical Status;Cognition;Hearing (09/12/241542) Method of Education: Verbalized to patient;Patient demonstrated task (09/12/241542) Assessment: Patient was seen supine in bed in a lethargic stated however able to mumble yes/no answers at this time. Patients eyes remained closed for majority of the session due to lethargy despite maximal verbal and tactile cues to increase level of alertness. Patient completed bed mobility with total assistance x2 and performed reaching/self righting tasks while seated on the edge of the bed for approximately 15 minutes to increase trunk strength, postural awareness, and endurance requiring a range of maximal to total assistance to maintain balance due to posterior leaning and pushing. Patient resistive to attempt sit to stand at this time saying "No!" when asked to perform sit to stand and pushing back on staff. Patient then returned to supine with maximal assistance x2. Ended sessionwith patient supine in bed with pillows for comfort, bed alarm activated, and call alfred within reach. Patient was self limiting this session due to lethargy. Please consider post-acute care services which may include home health, senior care, outpatient therapy or inpatient rehabilitation. The level of care will be determined in collaboration with patient, family/caregiver and care team members. Deficits requiring P.T. treatment needs: Safety;Mobility;Balance;Weakness;Endurance;Lower extremitystrength (09/12/241542) Plan: Continue with current treatment plan established on evaluation. AM PAC Score with Stairs: 6 A portion of this AM-PAC assessment not scored based on functional assessment; rather clinical decision making utilized based on current findings and/or prior level of function. Please refer to future AM-PAC calculations of functional ability as they become available. * Ancillary Progress Note - Katty Donovan COTA - 09/12/2024 3:20 PM EST PROGRESS NOTE - Occupational Therapy [facility] [place]-[address] [address] Name: Goran Hester Location: [facility] A465/A Date: 09/12/2024 Time: 3:49 PM Goran Hester is a 89 year old male. Patient Status: Inpatient Insurance: Payor: MEDICARE Plan: MEDICARE A AND B Product Type: *No Product type* Payor: [employer] [facility] ([employer]) Plan: [employer] MEDICARE SUPPLEMENT Product Type: *No Product type* Patient Seen: at bedside, nursing cleared patient for therapy Patient Identified By: Name, ID Band and Date Diagnosis: ICH (09/12/241543) Status of treatment: Treatment completed (09/12/241543) Orders: OT evaluation and treatment (09/12/241543) Weight Bearing Status: Weight bearing as tolerated (09/12/241543) Precautions: Alarms;Falls;Safety (intermediate nasal cannula 8 L/min) (09/12/24 154) Total Treatment Time: 20 (09/12/241543) Subjective: "yes" Pain: No complaints of pain Observations Consciousness: Alert (09/08/241428) Orientation: Person;Place (" Hospital", + month and -year) (09/08/241428) Cognitive Limitations: Attention to task;Impulsivity;Processing;Problem solving;Visual attention (09/08/241428) Psychosocial: Patient can communicate basic needs (09/08/241428) Sitting posture: Forward head;Rounded shoulders (09/08/241428) Standing posture: Forward head;Rounded shoulders (09/08/241428) Safety awareness: Needs cueing supervision.;The Patient does not verbalize insight of current deficits.;The Patient does not demonstrate carryover of insight during functional tasks. (09/08/24 2235) Current Functional Status: Activities of Daily Living: Self Care Grooming: Supervision (Please comment) (brush hair and wash face with hand over hand assistance progressing to supervision level) (09/12/241543) Dressing Upper Body: Not Tested (09/12/241543) Lower Body: Dependent (medhat slipper socks) (09/12/241543) Bed Mobility Supine-Sit: Dependent (X2) (09/12/241543) Sit-Supine: Maximal Assistance (X2) (09/12/241543) OT Transfers Sit-Stand: Not Tested (attempted but patient very resistive) (09/12/241543) Stand-Sit: Not Tested (09/12/241543) Bed-Chair: Not Tested (09/12/241543) Toilet: Not Tested (09/12/241543) Balance Sit (Static): Poor (- to absent) (09/12/241543) Sit (Dynamic): Absent (09/12/241543) Stand (Static): Not Tested (09/12/241543) Patient Education Education Topic: Role of OT;Plan of care goals (09/12/241543) Review of Precautions: Fall;Safety (09/12/241543) Method of Education: Verbalized to patient (09/12/241543) Education Provided to: Patient (09/12/241543) Response to Education: Has decreased awareness and understanding of education (09/12/241543) Barriers to learning: Medical status (09/12/241543) Preferred learning method: Combination (09/12/241543) Alarm Status Patient positioned in: Bed (09/12/241543) With: Bed alarm intact and functioning and call alfred in reach (09/12/241543) Following session patient seated OOB in chair with chair alarm activated and cord plugged into callbell system. Treatment Provided: Self Residential Management Trainin minutes Deficits requiring O.T. treatment needs: ADL/self-care;Balance;Endurance;Fine motor coordination;Functional mobility;IADL;Safety;Upper extremity strength;Weakness (09/12/241543) Assessment: Patient was found laying supine in bed upon arrival to room; Sleeping . Lethargic. 8 L/min via intermediate nasal cannula. Patient required dependence of 2 to transition supine to sit edge of bed due to decreased level of alertness; Patient sat edge of bed ~ 12 minutes with focus on improving level of alertness, sitting balance, and independence with grooming tasks. Initially requiredhand over hand assistance but was able to progress to supervision level to wash face and comb hair as level of alertness improved. Sitting balance remains poor due to unwillingness to participate pushing posteriorly despite verbal cuds to correct. Unable to stand this session due to patients resisti veness, therefore functional transfers not performed at this time, as patient attempted to lay backdown. Returned to supine and made comfortable. Daughter in room for session. All Questions answered. Please consider post-acute care services which may include home health, senior care, outpatient therapy or inpatient rehabilitation. The level of care will be determined in collaboration with patient, family/caregiver and care team members. Plan: Will continue to follow patient per plan of care. Anticipated Frequency (on eval): 3 to 5 times per week (09/12/24 1150) AM-PAC assessment not scored at this time due to patient resistive to care. Please refer to future AM-PAC calculations of functional mobility as they become available. * Ancillary Progress Note - Zakia Plummer RN - 09/12/2024 2:39 PM EST CARE MANAGEMENT - ADULT TRANSITION NOTE [facility]-[address] [address] Name: Goran Hester Location: [facility] A465/A Date: 09/12/2024 Time: 2:39 PM Risk Stratification Risk Stratification Psycho Social / Medical Concerns Identified: Adjustment to illness/injury;New serious diagnosis (09/06/241421) Accessed [facility] to connect patients to social care resources: No (09/06/241421) OBRA or OPTIONS needed for placement: No (09/06/241421) Readmission Risk Score: 20.03 (09/12/24 1201) AM-PAC Score With Stairs : 16 (09/12/24 0800) Caregiver Information Emergency Contacts Name Relation Home Work Mobile JOSE ANTONIO HESTER Adult Child [phone] Tonya Waddell Adult Child [phone] Other Contacts None on File Transition of Care Checklist Transition of Care Checklist (aka Readmission Risk Score) Discharge Disposition: (Goal is to return home to [facility] where he shares an apartment with his , Rossi.) (09/06/241433) Narrative: CM has been following Patient's hospital course. Patient discussed in IDT rounds. They are not medically stable for discharge at this time because patient requiring 8L o2, needs continued diuresis and needs a HF consult. Discharge plan evolving - CM will continue to follow for discharge needs. 1330: Spoke with patient and patient's daughter at bedside about pt needing rehab after d/c before returning to [facility]. Patient's daughter agreeable, requested referral to [facility] referrals[facility]. 1345: Spoke with patient's son Jose Antonio, emailed SNF list to him, agreeable to referrals being sent. Anticipated Transportation at Discharge: Family vs w/c? Patient/Family Expectations: SNF Transition Planning Transition Planning Transition Plan/Considerations: Needs uncertain at this time - Continue monitoring for needs;Discussed at Interdisciplinary Team / Boost Rounds (09/06/241433) [facility] Quality Rating provided to patient: No (09/06/241433) Repisodic Choice provided to patient: No (09/06/241433) Transition plan discussed with - Enter name and phone #: Pt's son Jose Antonio and IDT (09/06/241433) Insurance Considerations: N/A (09/06/241433) Post-Acute Care needs identified and Referrals Completed: (undtermined at this time.) (09/06/241433) Care Management will continue to monitor and assist with discharge planning needs * Ancillary Progress Note - Kenyon Wright RDN - 09/12/2024 11:54 AM EST CLINICAL NUTRITION CONSULT/PROGRESS NOTE [facility]-[address] [address] Name: Goran Hester Location: [facility] A465/A Date: 09/12/2024 Time: 11:55 AM How patient was identified (select 2): Wristband and Name Discussed in interdisciplinary rounds: Telma Goran Hester is a 89 year old male being seen for follow-up Primary Diagnosis: Admitted with ICH Other pertinent information: Swallow evaluation 09/10/24, cleared for Regular textured diet. Patient currently NPO due to respiratory status. On [facility] this morning when seen. NUTRITION ASSESSMENT: Past medical/surgical history and medications reviewed. Food/Nutrition-Related History Diet: NPO Previously followed diet: Regular Food Allergies/Intolerances: no known Adult Energy Intake: Less than 75% of estimated energy requirement for greater than 7 days (moderate, acute illness). Oral Nutrition Supplement (ONS): none Pertinent medications/vitamins/minerals/supplements: Colace, Lasix, NovoLOG, Melatonin, Miralax, Senna, Pertinent Biochemical Data: There are no biochemical abnormalities requiring a change in the nutrition plan of care Nutrition-Focused Physical Findings: Appearance: WNWD Respiratory support: Supplemental O2 Delivery: Intermediate Nasal Cannula Nasal/Oral: No issues identified Digestive: No issues identified Last Bowel Movement: 09/10/24 (09/10/24 1400) Cognition: Confused Skin: Intact Edema Location: Generalized (09/12/24 0800) Enteral access: none Nutrition Focused Physical Exam: NFPE completed on 09/06/2024 Subcutaneous Fat Loss: No significant subcutaneous fat loss noted. Muscle Loss: No significant muscle loss noted. Anthropometrics Measurements Height: 175.3 cm (5' 9") (09/05/24 1400) Admission weight: 95 kg Weight: 98.9 kg (218 lb 1.6 oz) (09/12/24 0230) Usual Body Weight: 95-96 kg [place] weight: 76.5 kg [place] Weight Based on BMI: 24.9 Adjusted ideal weight: 81.1 kg Interpretation of Weight Change Prior to Admission: No recent/significant weight change Weight Changes Since Admission: weight up from admission, trending. Nutrition Prescription: Energy needs: 20-25 Kcal/kg Based on admission weight Kcal/day: 0048-4967 Protein needs: 1.0-1.2 gm/kg Based on admission weight gm/day: 95-114 Fluid needs: 25 ml/kg Based on admission weight mL/day: 2375 Malnutrition: Malnutrition Present: No (09/06/24 1400) NUTRITION DIAGNOSIS: Suboptimal energy intake related to hospitalization as evidenced by <75% energy intake Goals: Diet advancement or initiation of enteral/parenteral nutrition within 24-48 hours. NUTRITION INTERVENTION/PLAN: Continue to monitor NPO/clear liquid status Clinical Nutrition Recommendations: Diet: Advance diet when clinically feasible NUTRITION MONITORING AND EVALUATION: NPO status/diet advancement and tolerance Lab values warranting change with MNT Weight for trends Plan follow-up: Will follow and adjust nutrition plan of care as medical condition requires. Please contact for change(s) in patient condition requiring earlier intervention. Kenyon CAMP [facility] Clinical Nutrition Services [place] Text / x [phone] * Respiratory Progress Note - Jose Antonio Khalil RRT - 09/12/2024 2:54 AM EST PDP RE-EVALUATION NOTE - Respiratory Care Services [facility]-[address] [address] Name: Goran Hester Location: [facility] A465/A Date: 09/12/2024 Time: 2:54 AM Patient Driven Protocol Summary: Re-evaluation . This Treatment Plan and medications will be reviewed by the Primary Care Team for any contraindications. Respiratory Care Treatment Plan Pulmonary Volume Expansion Therapy: Flutter Therapy: PRN to enhance mobilization of secretions and prevent or treat alveolar consolidation and atelectasis. Additional Pulmonary Volume Expansions: Deep Breathing/Cough PRN to enhance mobilization of secretions and prevent or treat alveolar consolidation and atelectasis. Duoneb PRN The patient will be re-evaluated: No re-evaluation needed. Indications for treatment met. The Triage Level is: (Assessment Score = 6 -10) Level 4. Triage Level Definitions: Level 1 Severe Respiratory/Airway Compromise Level 2 Moderate Respiratory/Airway Compromise or high risk for pulmonary complications Level 3 Mild Respiratory/Airway Compromise or moderate risk for pulmonary complications Level 4 Episodic Respiratory/Airway Compromise or low risk for pulmonary complications Level 5 No Respiratory/Airway Compromise Triage 1 Triage 2 Triage 3 Triage 4 Triage 5 greater than 20 16 - 20 11 - 15 6 - 10 0 - 5 Medical Record Assessment Clinical Findings Pulmonary Status: 0 - No History Surgical Status: 0 - No Surgical History Chest X-Ray: 2 - Infiltrates and/or Atelectasis Assessment Score: 2 Patient Assessment Clinical Findings Respiratory Pattern: 0 - RR 12 - 20; Patient only gets breathless with strenuous exercise. Breath Sounds: 2 - Diminished bilaterally Cough Effectiveness: 0 - Strong non-productive Sputum Production 0 - No sputum production Level of Activity: 2 - Temporarily non-ambulatory O2 needed to keep SpO2 greater than or equal to 92%: 2 - Oxygen 4-6 LPM or FiO2 35-50% Assessment Score: 6 Total Assessment Score: 8 Breath Sounds: Inspiratory and expiratory diminished bilaterally.. Cough and Sputum: No cough was present.. Vital Signs: Resp: 20 (09/12/24 0200) Pulse: 93 (09/12/24 0200) Temp: 37.4 C (99.3 F) (09/12/24 0031) BP: 142/78 (09/12/24 0137) SpO2: 100 % (09/12/24 0232) Primary Service: Med G. Admitting Diagnosis: Intracranial hemorrhage (HCC) [I62.9] * Communication - Warner Tao MD - 09/11/2024 11:39 PM EST Rapid Response Communication Note: Goran Hester is a 89 year old male with PMHx of HTN, T2DM, DLD, ND s/p 5 stents, stroke, who was admitted for [facility] 2/ hemorrhagic conversion of embolic strokesHospital course complicatedby severe hospital/ICU delirium, new onset HFrEF, flash pulmonary edema, and urinary retention. The patient was transferred from the ICU to the floor earlier today. Since the transfer, he has become increasingly confused and agitated, requiring multiple PRN doses of IV labetalol for BP control. At 1930, he developed progressive SOB and signs of respiratory distress. No aspiration events were noted by staff. He began desaturating, with SpO? barely in the early 90s on 6 L NC, prompting escalation of respiratory support. OBJECTIVE: BP 189/87 | Pulse 78 | Temp 36.6 C (97.9 F) (Tympanic) | Resp 20 | Ht 1.753 m (5' 9") | Wt 98 kg (216 lb 0.8 oz) | SpO2 99% | BMI 31.91 kg/m | BSA 2.18 m General: In distress, increased work of breathing Neck: supple, no JVD Heart: RRR Lungs: Increased effort, fine bibasilar crackles bilaterally with diminished air entry Extremities: no LE edema bilaterally, intact peripheral pulses Skin: warm Neurologic:Somnolent, required multiple obnoxious stimuli to stay alert, anisocoria noted with pupils b/l reactive not following commands or answering any questions, noted to move all extremities spontaneously and symmetrically Psych: normal affect Interventions: -Escalated to HFNC for worsening respiratory distress -ICU team contacted and available at bedside. He is DNR/DNI, an ICU level of care offers limited benefit in this context. -ABGs and stat CXR ordered -Lasix 20 mg IV given for suspected fluid overload -HOB elevated >30 degrees -Patient made NPO Assessment & Plan: -Primary concern is worsening respiratory status with recurrent desaturation requiring escalated oxygen support and diuresis. -Hypertension and agitation remain ongoing concerns, requiring continued management. -Neurologically stable with no focal deficits at this time. -Patient disposition: Transfer to medicine for further management due to increase in O2 requirementin setting of pulmonary edema and HFrEF. -Neurology will continue to follow the patient. Patient was seen and discussed with Dr. Loo, attending physician. Warner Tao MD Cosigned by Lizbet Mena MD at 09/12/2024 6:46 AM EST * Care Plan - Lorena Raymundo RN - 09/10/2024 6:33 PM EST Clinical Goal(s): pt will remain safe and free from falls (09/10/24 0800) Possible barriers to meeting goal(s)/advancing plan of care: disorientation, poor short term memory, [place] Stability of the patient: Moderately stable - low risk of patient condition declining or worsening Summary regarding today's goal(s): Met: pt remained safe this shift Recommendations: reinforce call alfred use when necessary * Ancillary Progress Note - Delores Marin CCC-BOX TOE CUTTER - 09/10/2024 2:51 PM EST PROGRESS NOTE - Speech-Language Pathology [address] [address] Name: Goran Hester Location: [facility] A436/A Date: 09/10/2024 Time: 2:51 PM Patient Status: Inpatient Insurance: Payor: MEDICARE / Plan: MEDICARE A AND B / Product Type: *No Product type* / Patient Age: [age] year old Pt seen today for f/u swallowing treatment. Pt last seen by ST on 09/10/24 in the morning w/ recommendations of NPO Pt remains NPO at this time Pt awake and alert in a chair upon arrival. Pt followed commands and engaged in conversation. Pt presented with thin liquids via cup and straw, puree solids, soft & bite- sized solids and regular solids. Oral phase of the swallow is judged to be WFL. Pt able to secure, transfer and masticate bolus appropriately. Pharyngeal phase of swallow inferred. No overt s/s of aspiration noted during PO trials. RECOMMENDATIONS: - Regular Solids - Thin Liquids - Medication as tolerated - Small sips/bites, slow rate of intake and alternate between solids & liquids - Intermittent supervision - Seated upright at a 90 degree angle for all PO intake - d/c from speech therapy services * Ancillary Progress Note - Vianey Jackson RRT - 09/09/2024 4:15 PM EST PATIENT DRIVEN PROTOCOL - Respiratory Care Services [address] [address] Name: Goran Hester Location: [facility] A436/A Date: 09/09/2024 Time: 4:15 PM Patient Driven Protocol Summary: Re-evaluation . This Treatment Plan and medications will be reviewed by the Primary Care Team for any contraindications. Respiratory Care Treatment Plan Aerosol Therapy Treatment:: Hand Held Nebulizer Tx PRN with Duoneb: Unit Dose. to reduce work of breathing and improve pulmonary gas exchange. Secretion Management Treatment: Flutter TherapyPRN to enhance mobilization of secretions and prevent or treat alveolar consolidation and atelectasis. The patient will be re-evaluated: No re-evaluation needed. Indications for treatment met. The Triage Level is: (Assessment Score = 0 - 5) Level 5. Triage Level Definitions: Level 1 Severe Respiratory/Airway Compromise Level 2 Moderate Respiratory/Airway Compromise or high risk for pulmonary complications Level 3 Mild Respiratory/Airway Compromise or moderate risk for pulmonary complications Level 4 Episodic Respiratory/Airway Compromise or low risk for pulmonary complications Level 5 No Respiratory/Airway Compromise Triage 1 Triage 2 Triage 3 Triage 4 Triage 5 greater than 20 16 - 20 11 - 15 6 - 10 0 - 5 Medical Record Assessment Clinical Findings Pulmonary Status: 0 - No History Surgical Status: 0 - No Surgical History Chest X-Ray: 1 - Chronic Changes or CHF Assessment Score: 1 Patient Assessment Clinical Findings Respiratory Pattern: 0 - RR 12 - 20; Patient only gets breathless with strenuous exercise. Breath Sounds: 2 - Diminished bilaterally Cough Effectiveness: 0 - Strong non-productive Sputum Production: 0 - No sputum production Level of Activity: 1 - Ambulatory with assist O2 needed to keep SpO2 greater than or equal to 92%: 1 - Oxygen 1-3 LPM or FiO2 less than 35% Assessment Score: 4 Total Assessment Score: 5 Breath Sounds: Inspiratory and expiratory clear and diminished bilaterally.. Cough and Sputum: No cough was present.. CXR: IMPRESSION Pulmonary edema.. Vital Signs: Resp: 23 (09/09/24 1600) Pulse: 55 (09/09/241599) Temp: (P) 36.3 C (97.3 F) (09/09/24 1600) BP: 152/58 (09/09/24 1600) SpO2: 98 % (09/09/241599) Primary Service: Critical Care White. Admitting Diagnosis: Intracranial hemorrhage (HCC) [I62.9] Pulmonary Diagnosis: none . Prescriptions/Home Medications/Durable Medical Equipment: none. Recommended New home medications/durable medical equipment/outpatient pulmonary/sleep referral. N/A * Ancillary Progress Note - Mago Flood RN - 09/09/2024 3:45 PM EST CARE MANAGEMENT - ADULT TRANSITION NOTE [facility]-[address] [address] Name: Goran Hester Location: [facility] A436/A Date: 09/09/2024 Time: 3:45 PM Risk Stratification Risk Stratification Psycho Social / Medical Concerns Identified: Adjustment to illness/injury;New serious diagnosis (09/06/241421) Accessed [employer] to connect patients to social care resources: No (09/06/241421) OBRA or OPTIONS needed for placement: No (09/06/241421) Readmission Risk Score: 20.73 (09/09/24 1201) AM-PAC Score With Stairs : 13 (09/08/24 1440) Caregiver Information Emergency Contacts Name Relation Home Work Mobile JOSE ANTONIO HESTER Adult Child [phone] Tonya Waddell Adult Child [phone] Other Contacts None on File Transition of Care Checklist Transition of Care Checklist (aka Readmission Risk Score) Discharge Disposition: (Goal is to return home to [facility] [address] where he shares an apartment with his , Rossi.) (09/06/24 143) Narrative: Pt status was discussed during IDT Boost and chart reviewed. Pt requiring BiPap yesterday and had PT/OT eval in which patient was unsteady demonstrating decreased RLE coordination, was very impulsive throughout attempting to change directions and sit on the edge of the bed immediately req uiring maximal verbal cues to differ and required two assist during the eval. Pt is confused and oriented to self only, on O2 at 4 liters via NC, requiring Precedex infusion for agitation and will bestarting IV Keppra today in addition to IV Valproate Sodium. Pt cannot be on any antiplatelet /coagulant for at least 4 weeks and is currently NPO. Pt will remain in ICU at this time and is not ready for discharge at this time. Son will update [facility] as he wants to maintain privacy at this time. Anticipated Transportation at Discharge: Medical Patient/Family Expectations: Pending PT/OT evaluations and deficits/needs at discharge. Goal is to return to [facility] with but pt may need SNF/IPR prior to returning pending those needs. CM will continue to follow and assist with discharge planning. Transition Planning Transition Planning Transition Plan/Considerations: Needs uncertain at this time - Continue monitoring for needs;Discussed at Interdisciplinary Team / Boost Rounds (09/06/241433) [facility] Quality Rating provided to patient: No (09/06/241433) Repisodic Choice provided to patient: No (09/06/241433) Transition plan discussed with - Enter name and phone #: Pt's son Jose Antonio and IDT (09/06/241433) Insurance Considerations: N/A (09/06/241433) Post-Acute Care needs identified and Referrals Completed: (undtermined at this time.) (09/06/241433) Care Management will continue to monitor and assist with discharge planning needs * Ancillary Progress Note - Leela Amezcua RDN - 09/09/2024 8:00 AM EST CLINICAL NUTRITION PROGRESS NOTE [facility]-[address] [address] Name: Goran Hester Location: [facility] A436/A Date: 09/09/2024 Time: 1:53 PM How patient was identified (select 2): Wristband, Medical record number, and Name Discussed in interdisciplinary rounds: No Goran Hester is a 89 year old male being seen for follow-up Primary Diagnosis: 89 year old male was admitted on 09/05/2024 and presents with an intracranial hemorrhage. Other pertinent information: The patient's diet was advanced this morning. There is no enteral access in place at this time. Will continue to monitor the patient's weight status, laboratory values, and the nutrition plan of care. NUTRITION ASSESSMENT: Past medical/surgical history and medications reviewed. Food/Nutrition-Related History Nutrition Support: n/a Diet: Heart Healthy, 2 gm Sodium Previously followed diet: Unable to determine Food Allergies/Intolerances: None. Adult Energy Intake: Less than 50% of estimated energy requirement for greater than 5 days (severe, acute illness).due to being NPO Pertinent medications/vitamins/minerals/supplements: Precedex, Isolyte infusion, Colace, Novolog, Pertinent Biochemical Data: Labs Reviewed. There are no biochemical abnormalities requiring a change in the nutrition plan of care. Nutrition-Focused Physical Findings: Appearance: Obese Respiratory support: Supplemental O2 Delivery: Nasal Cannula Nasal/Oral: No issues identified Digestive: No issues identified Last Bowel Movement: 09/07/24 (09/09/24 0800) Cognition: Confused Skin: Intact Enteral access: N/A Nutrition Focused Physical Exam: NFPE completed on 09/06/2024 Subcutaneous Fat Loss: No significant subcutaneous fat loss noted. Muscle Loss: No significant muscle loss noted. Anthropometrics Measurements Height: 175.3 cm (5' 9") (09/05/24 1400) Admission weight: 95 kg Weight: 92.9 kg (204 lb 12.9 oz) (09/09/24 0600) Usual Body Weight: 95-96 kg [place] weight: 76.5 kg [place] Weight Based on BMI: 24.9 Adjusted ideal weight: 81.1 kg Interpretation of Weight Change Prior to Admission: No recent/significant weight change Weight Changes Since Admission: No significant loss. Nutrition Prescription: Energy needs: 20-25 Kcal/kg Kcal/day: 9577-9955 Based on admission weight Protein needs: 1.0-1.2 gm/kg Protein: 95-114 Based on admission weight Fluid needs: 25 ml/kg Fluid: 2375 ml/day Based on admission weight Malnutrition: Malnutrition Present: No (09/06/24 1400) NUTRITION DIAGNOSIS: Suboptimal oral intake related to ongoing medical issues as evidenced by the delay in the initiation of an oral diet/enteral nutrition. Goals: Patient will consume 50% estimated nutrient needs within 5 days. Previous diagnosis/Goals: Transition to oral or enteral nutrition support as soon as clinically feasible. Improving NUTRITION INTERVENTION/PLAN: Continue current care plan Clinical Nutrition Recommendations: If unable to tolerate an oral diet, recommend providing Nutren 1.5 @ 65 mL/hr to provide 2050 calories, 93 grams of protein, and 1040 mL of free water. (Calculated to meet needs over 21 hours) NUTRITION MONITORING AND EVALUATION: Nursing documentation flowsheets for percent meal intake Lab values warranting change with MNT Weight for trends Plan follow-up: Will follow and adjust nutrition plan of care as medical condition requires. Please contact for change(s) in patient condition requiring earlier intervention. 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 * Pt Handout (on AVS) - Reggie Edmondson RN - 09/09/2024 6:37 AM EST Images from the original note were not included. [id number] Stroke: Resources and Support Your loved one may need ongoing therapy or nursing care after a stroke. Talk with a director social welfare or upper caser. Thy can help with planning for care. They can tell you about local sources of support. Planning for home care A nurse may come and check their blood pressure. A physical therapist may help with exercises. The therapist will often show your loved one and their family members certain exercises that can be done without supervision. Speech and occupational therapists can help the whole family communicate and handle tasks of daily living better. Adult daycare You may be afraid to leave your loved one alone. Adult daycare facilities can provide supervision if you need time away during the day. They also give your loved one a chance to be with other people. Other resources You can also check the internet for other resources. Try the following listings: Churches and synagogues Recreation centers Adult daycare guest services ambassador Support groups Online stroke support communities Last Reviewed Date: 2022 00:00:00 [phone] [employer]. All rights reserved. This information is not intended as a substitute for professional medical care. Always follow your healthcare professional's instructions. * Pt Handout (on AVS) - DelvisReggie RN - 09/09/2024 6:36 AM EST [id number] Risk Factors for Stroke Certain health and lifestyle issues?called risk factors?increase your chances of having a stroke. The biggest risk factor for stroke is high blood pressure. But there are many other factors that alsoput you at risk. The list below can help you identify which risk factors you have. That way, you know where you need to make healthy changes. Talk with your healthcare provider about ways to help redu ce your risk factors. What are your risk factors? Risk factors are different for each person. Check off the factors that apply to you. Keep in mind that some factors, such as your age, can?t be changed. But others can be managed. Health risk factors You have high blood pressure. You?re overweight. You have unhealthy cholesterol levels. You have atrial fibrillation. You have atrial flutter. You?ve had a heart attack. You have narrowed arteries. You have diabetes. You are a man. You are an . You are an . You are an . Lifestyle risk factors You rarely exercise. You often eat salty, fried, or greasy foods. You smoke. You have more than 2 alcoholic drinks per day. Age and family history You?re over age 60. A parent, brother, or sister has had a stroke. Metabolic syndrome Any of the factors above may put you at increased risk for stroke. But having 3 or more of 5 certain risk factors raises your risk more. This is a condition called metabolic syndrome. These factors include: Too much weight around your waist (or apple shaped body) High blood pressure High blood sugar Low levels of HDL (good) cholesterol levels High levels of triglycerides If you're a woman, your risks may also include polycystic ovary syndrome. If you have any of these risk factors, be sure to talk with your provider about how to decrease your risk of stroke and improve your overall health. Last Reviewed Date: 2023 00:00:00 [id number] [employer]. All rights reserved. This information is not intended as a substitute for professional medical care. Always follow your healthcare professional's instructions. * Ancillary Progress Note - Chandler Gillis RRT - 09/08/2024 3:41 PM EST PATIENT DRIVEN PROTOCOL - Respiratory Care Services [address] [address] Name: Goarn Hester Location: [facility] A436/A Date: 09/08/2024 Time: 3:41 PM Patient Driven Protocol Summary: Initial evaluation performed. This Treatment Plan and medications will be reviewed by the Primary Care Team for any contraindications. Respiratory Care Treatment Plan Aerosol Therapy Treatment:: Hand Held Nebulizer Tx PRN with Duoneb: Unit Dose. to reduce work of breathing and improve pulmonary gas exchange. . The patient will be re-evaluated: No re-evaluation needed. Indications for treatment met. The Triage Level is: (Assessment Score = 11-15) Level 3. Triage Level Definitions: Level 1 Severe Respiratory/Airway Compromise Level 2 Moderate Respiratory/Airway Compromise or high risk for pulmonary complications Level 3 Mild Respiratory/Airway Compromise or moderate risk for pulmonary complications Level 4 Episodic Respiratory/Airway Compromise or low risk for pulmonary complications Level 5 No Respiratory/Airway Compromise Triage 1 Triage 2 Triage 3 Triage 4 Triage 5 greater than 20 16 - 20 11 - 15 6 - 10 0 - 5 Medical Record Assessment Clinical Findings Pulmonary Status: 3 - Pulm Impairment (acute or chronic) w/o exacerbation, or 1 - 2 rib fractures Surgical Status: 0 - No Surgical History Chest X-Ray: 1 - Chronic Changes or CHF Assessment Score: 4 Patient Assessment Clinical Findings Respiratory Pattern: 0 - RR 12 - 20; Patient only gets breathless with strenuous exercise. Breath Sounds: 3 - Crackles, mild wheezes, coarse bronchial, upper airway noises Cough Effectiveness: 0 - Strong non-productive Sputum Production: 0 - No sputum production Level of Activity: 1 - Ambulatory with assist O2 needed to keep SpO2 greater than or equal to 92%: 4 - Oxygen 100% or NIV/HFNC Assessment Score: 8 Total Assessment Score: 12 Breath Sounds: Inspiratory and expiratory and Mild crackles bilaterally.. Cough and Sputum: An effective cough produced no sputum... CXR: EXAM XR CHEST 1 VIEW - 09/08/2024 12:04 pm HISTORY flash pulm edema likely COMPARISON No Comparison. TECHNIQUE Frontal view of the chest. FINDINGS Support apparatus: Loop recorder Diffuse ground-glass opacities and prominent interstitial markings. Likely small pleural effusions.No sizable pneumothorax. Prominent cardiac silhouette. Atherosclerosis. Degenerative osseous changes. IMPRESSION IMPRESSION Pulmonary edema. Vital Signs: Resp: 26 (09/08/24 1500) Pulse: 85 (09/08/24 1500) Temp: 36.4 C (97.5 F) (09/08/24 1200) BP: 161/73 (09/08/24 1500) SpO2: 100 % (09/08/24 1500) PFT: Patient unable to perform Inspiratory Capacity. Reason: On continuous BiPAP. Primary Service: Critical Care White. Admitting Diagnosis: Intracranial hemorrhage (HCC) [I62.9] Pulmonary Diagnosis: CAD and CHF. Prescriptions/Home Medications/Durable Medical Equipment: None. * Ancillary Progress Note - Katty Donovan COTA - 09/08/2024 2:49 PM EST PROGRESS NOTE - Occupational Therapy [facility]-[address] [address] Name: Goran Hester Location: [facility] A436/A Date: 09/08/2024 Time: 1449 pm Goran Hester is a 89 year old male. Patient Status: Inpatient Insurance: Payor: MEDICARE Plan: MEDICARE A AND B Product Type: *No Product type* Payor: [facility] ([employer]) Plan: [employer] MEDICARE SUPPLEMENT Product Type: *No Product type* Patient Seen: at bedside, nursing cleared patient for therapy Patient Identified By: Name, ID Band and Date Diagnosis: ICH (09/08/241428) Status of treatment: Treatment completed (09/08/241428) Orders: OT evaluation and treatment (09/08/241428) Weight Bearing Status: Weight bearing as tolerated (09/08/241428) Precautions: Alarms;BiPap;Falls;Safety (09/08/241428) Total Treatment Time: 11 (09/08/241428) Subjective: Agreeable to therapy Pain: No complaints of pain Observations Consciousness: Alert (09/08/241428) Orientation: Person;Place (" Hospital", + month and -year) (09/08/241428) Cognitive Limitations: Attention to task;Impulsivity;Processing;Problem solving;Visual attention (09/08/241428) Psychosocial: Patient can communicate basic needs (09/08/241428) Sitting posture: Forward head;Rounded shoulders (09/08/241428) Standing posture: Forward head;Rounded shoulders (09/08/241428) Safety awareness: Needs cueing supervision.;The Patient does not verbalize insight of current deficits.;The Patient does not demonstrate carryover of insight during functional tasks. (09/08/241428) Functional Ambulation Assistive Device: (side by side assistance) (09/08/241428) Distance in feet:: 10 (09/08/241428) Bed Mobility Roll (Right): Supervision (09/08/241428) Roll (Left): Supervision (09/08/241428) Supine-Sit: Not Tested (09/08/241428) Sit-Supine: Minimal Assistance (09/08/241428) OT Transfers Sit-Stand: Minimal Assistance (X2) (09/08/241428) Stand-Sit: Minimal Assistance (X2) (09/08/241428) Bed-Chair: Not Tested (09/08/241428) Toilet: Not Tested (09/08/241428) Balance Sit (Static): Fair (09/08/241428) Sit (Dynamic): (Fair -) (09/08/241428) Stand (Static): (poor +) (09/08/241428) Stand (Dynamic): Poor (09/08/241428) Patient Education Education Topic: Role of OT;Plan of care goals (09/08/241428) Review of Precautions: Fall;Safety (09/08/241428) Method of Education: Verbalized to patient (09/08/241428) Education Provided to: Patient (09/08/241428) Response to Education: Has decreased awareness and understanding of education (09/08/241428) Barriers to learning: Medical status (09/08/241428) Preferred learning method: Combination (09/08/241428) Alarm Status Patient positioned in: Bed (09/08/241428) With: Bed alarm intact and functioning and call alfred in reach (left in the care of the primary nurse) (09/08/241428) Treatment Provided: Therapeutic Activity: 11 minutes Deficits requiring O.T. treatment needs: ADL/self-care;Balance;Endurance;Fine motor coordination;Functional mobility;IADL;Safety;Upper extremity strength;Weakness (09/08/241428) Assessment: Patient was found seated in recliner chair: Patient currently on Bipap. Patient is moreawake this session; Oriented to person. " Hospital" , month, but not year. Patient performed functional transfers and functional ambulation with side by side assistance Min A x 2 this session, and was able to increase ambulatory distances. Patient sat edge of bed ~ 3-4 minutes insisting on having asip of water ( primary nurse allowed patient to have wet swab only). Patient demonstrated bed mobility with Min A to assist LE's into bed. Overall improvements noted with general mobility but is rather impulsive with movement, noting poor safety awareness and decreased awareness of current deficits. Further ambulation limited due to being connected to Bipap at this time. LE dressing was declined.Of noted patient was incontinent of urine and required dependence for brief change/hygiene, but wasable to roll L/R. Progressing with mobility. Please consider post-acute care services which may include home health, senior care, outpatient therapy or inpatient rehabilitation. The level of carewill be determined in collaboration with patient, family/caregiver and care team members. Plan: Will continue to follow patient per plan of care. Anticipated Frequency (on eval): 3 to 5 times per week (02/13/25 1429) AM-PAC assessment not scored at this time due to respiratory status. Please refer to future AM-PAC calculations of functional mobility as they become available. * Ancillary Progress Note - Belén Peralta SAND BOBBER - 09/08/2024 2:40 PM EST PROGRESS NOTE - Physical Therapy [facility]-[address] [address] Name: Goran Hester Location: [facility] A436/A Date: 09/08/2024 Time: 2:40 PM Goran Hester is a/an 89 year old male. Patient Status: Inpatient Insurance: Payor: MEDICARE Plan: MEDICARE A AND B Product Type: *No Product type* Payor: [facility] ([employer]) Plan: [employer] MEDICARE SUPPLEMENT Product Type: *No Product type* Patient Seen: at bedside, nursing cleared patient for therapy Patient Identified By: Name, ID Band and Date Diagnosis: ICH (09/08/241439) Status of treatment: Treatment completed (09/08/241439) Orders: PT evaluation and treatment (09/08/241439) Precautions: Alarms;Falls;Safety;Oxygen (BIPAP, Hard of Hearing) (09/08/241439) Total Treatment Time--free text: 11 (09/08/241439) Subjective: Patient was agreeable to work with physical therapy services. Pain: No complaints of pain P.T. Bed Mobility Sit-Supine: Minimal Assistance (09/08/241439) Transfers Sit-Stand: Minimal Assistance (x2) (09/08/241439) Stand-Sit: Minimal Assistance (x2) (09/08/241439) Ambulation: Distance ambulated (feet): 10 Assistive Device: No device Assist: Minimal Assistance x2 Balance Sit (Static): Fair (09/08/241439) Sit (Dynamic): (fair -) (09/08/241439) Stand (Static): (poor +) (09/08/241439) Stand (Dynamic): Poor (09/08/241439) Patient and or Family Goal(s): to get well Topic of Education: Safety with mobility Method of Education: Verbal discussion and explanation provided to patient: demonstrated the exercise and or task and had reduced level of understanding due to current cognitive status Treatment Provided: Therapeutic Activity 11 minutes: bed mobility Transfer training Small amount of ambulation Alarm Status Patient positioned in: Bed (09/08/241439) With: Bed alarm intact and functioning and call alfred in reach (09/08/24 144) Patient Education Review of Precautions: Safety;Fall (09/08/24 144) Review of Exercises: Verbal Exercises Provided;Pt Demonstrated Exercise (09/06/24 1035) Safety Awareness: Patient does not verbalize insight of current deficits;Patient does not demonstrates carryover of insight during functional tasks;Patient can communicate basic needs;Needs cueing supervision (09/08/241439) Preferred learning method: Combination (09/08/241439) Barriers to learning: Medical Status;Cognition;Hearing (09/08/241439) Method of Education: Verbalized to patient;Patient demonstrated task (09/08/241439) Assessment: Patient was seen reclined in the chair upon arrival and agreeable to work with physicaltherapy services. Patient was seen for a small amount of ambulation this session per service request. Patient remained alert throughout the session however was only oriented to person and month and is hard of hearing. Patient completed sit to stand from the chair with minimal assistance x2 and began to ambulate 10 feet from the chair to the bed with minimal assistance x2. Throughout ambulation patient was unsteady demonstrating decreased RLE coordination and was very impulsive throughout attempting to change directions and sit on the edge of the bed immediately requiring maximal verbal cues to differ. Patient then completed 4 sit to stand transfers on the edge of the bed with a minimal assistance x2 and returned to supine position with minimal assistance x1. Once supine in bed patient rolled each direction with supervision to adjust linens and was left supine in bed with pillows for comfort, bed alarm activated, and call alfred within reach. Patient continues to progress when working with physical therapy services by decreasing assistance levels, however requires maximal cues for safety and is impulsive throughout. SPO2 ranged between 100-98% and primary nurse ALBANIA Perea was present throughout the session to monitor. Patient would continue to benefit from skilled physical therapy services to reach established goals and address deficits stated above. Please consider post-acute careservices which may include home health, senior care, outpatient therapy or inpatient rehabilitation. The level of care will be determined in collaboration with patient, family/caregiver and care team members. Deficits requiring P.T. treatment needs: Safety;Mobility;Balance;Weakness;Endurance;Lower extremitystrength (09/08/24 1440) Plan: Continue with current treatment plan established on evaluation. AM PAC Score with Stairs: 13 A portion of this AM-PAC assessment not scored based on functional assessment; rather clinical decision making utilized based on current findings and/or prior level of function. Please refer to future AM-PAC calculations of functional ability as they become available. * Ancillary Progress Note - Katty Donovan COTA - 09/08/2024 12:31 PM EST Occupational Therapy Progress Note Goran Hester [facility] A436/Edgar [id number] 09/08/2024 Attempted to see patient today for Occupational therapy treatment session. Per primary nurse patient is currently on medical hold secondary to respiratory status: Patient now requiring Bipap. Will continue to follow as able. * Ancillary Progress Note - Belén Peralta PTA - 09/08/2024 12:31 PM EST PROGRESS NOTE - Physical Therapy [facility]-[address] [address] Name: Goran Hester Location: [facility] A436/A Date: 09/08/2024 Time: 12:31 PM Attempted to see patient for physical therapy services however after discussing with the primary nurse, ALBANIA Perea, patient is currently on a medical hold due to decline in respiratory status and recently being placed on bipap. Will continue to follow patient as able/appropriate. * Ancillary Progress Note - Kimmy Reid MSW - 09/08/2024 10:33 AM EST CARE MANAGEMENT - ADULT TRANSITION NOTE [facility]-[address] [address] Name: Goran Hester Location: [facility] A436/A Date: 09/08/2024 Time: 10:33 AM Risk Stratification Risk Stratification Psycho Social / Medical Concerns Identified: Adjustment to illness/injury;New serious diagnosis (09/06/241421) Accessed [employer] [facility] to connect patients to social care resources: No (09/06/241421) OBRA or OPTIONS needed for placement: No (09/06/241421) Readmission Risk Score: 18.04 (09/08/24 0800) AM-PAC Score With Stairs : 6 (09/06/24 1035) Caregiver Information Emergency Contacts Name Relation Home Work Mobile JOSE ANTONIO HESTER Adult Child [phone] Tonya Waddell Adult Child [phone] Other Contacts None on File Transition of Care Checklist Transition of Care Checklist (aka Readmission Risk Score) Discharge Disposition: (Goal is to return home to [facility] where he shares an apartment with his , Rossi.) (09/06/24 1434) Narrative: SW participated in IDTs. Per service, anticipate transfer out of ICU overnight, however,now on precedex infusion. Per chart review, pt admitted from [facility]. PT/OT notes reviewed from 09/06; call placed to patient's son, Jose Antonio to discuss. Jose Antonio expresses that [facility] patient lived in personal care portion of [facility]: apartment with and staff only assisted with med management. Jose Antonio mentions that they are anticipating patient may need higher LOC;either higher level of support (assisted living) with return to apartment vs SNF for rehab. Jose Antonio mentions that father wishes to keep healthcare information private and wants to honor that wish untilhe is able to discuss plan further with him. SW explained that we can open referral to [facility] so they are able to review and recommend most appropriate LOC at facility for pt. Jose Antonio understan ding of the same but reports that he would like to hold-off for now until he is able to see how pt does with PT/OT again today and can discuss with pt more. Jose Antonio requests SW call him to review PT/OTnotes when able. Jose Antonio reports pt was much more awake yesterday and he anticipate he will do much better with therapy. Jose Antonio also mentions that he will reach out himself to [facility] today to explain pt's status and potential for needing additional support upon discharge. SW will continue to follow, address pt's evolving needs, and provide psychosocial support. Anticipated Transportation at Discharge: TBD Patient/Family Expectations: TBD Transition Planning Transition Planning Transition Plan/Considerations: Needs uncertain at this time - Continue monitoring for needs;Discussed at Interdisciplinary Team / Boost Rounds (09/06/241433) [facility] Quality Rating provided to patient: No (09/06/241433) Repisodic Choice provided to patient: No (09/06/241433) Transition plan discussed with - Enter name and phone #: Pt's son Jose Antonio and IDT (09/06/241433) Insurance Considerations: N/A (09/06/241433) Post-Acute Care needs identified and Referrals Completed: (undtermined at this time.) (09/06/241433) Additional Considerations: -- Care Management will continue to monitor and assist with discharge planning needs * Diagnostic Clarification - Shala Mosley DO - 09/08/2024 7:47 AM EST - Hospital acquired delirium with component of metabolic encephalopathy from intraparenchymal hemorrhage * Diagnostic Clarification - Shala Mosley DO - 09/08/2024 7:47 AM EST The patient has been diagnosed with cerebral edema. * Care Plan - Mayda Ayala RN - 09/07/2024 12:54 PM EST Clinical Goal(s): SBP <140 (09/07/24 0800) Possible barriers to meeting goal(s)/advancing plan of care: Patient has PMH of HTN and confusion. Stability of the patient: Moderately unstable - medium risk of patient condition declining or worsening Summary regarding today's goal(s): Not Met: Patient unable to maintain SBP goal. Recommendations: Continue hourly vitals signs and hourly rounding. * Ancillary Progress Note - Mariya Jewell SLP - 09/07/2024 9:29 AM EST PROGRESS NOTE - Speech-Language Pathology [facility]-[address] [address] Name: Goran Hester Location: [facility] A436/A Date: 09/07/2024 Time: 9:29 AM Patient Status: Inpatient Insurance: Payor: MEDICARE / Plan: MEDICARE A AND B / Product Type: *No Product type* / Patient Age: [age] year old Pt seen this day for cognitive-communication and swallowing tx Pt last seen 09/06 with recommendations for NPO Pt remains NPO at this time Pt received upright in bed, awake and alert Pt able to follow commands this date and answer questions Communication Goals: -Pt will alert by opening eyes to his name in 2/3 opportunities given min cues GOAL MET: 100% of time -Pt will verbalize wants/needs in 80% of opportunities given mod cues GOAL MET: 90% -Pt will follow simple motor commands in 4/5 opportunities given min cues GOAL MET: 5/5 independently BOX TOE CUTTER administered cognitive communication ax due to improved skills today: AUDITORY COMPREHENSION: Yes/No Questions Within normal limits Body Part Identification Within normal limits Right/Left Discrimination: Within normal limits Commands Simple Within normal limits Complex Impaired Comprehension Words Within normal limits Sentences Within normal limits Paragraphs Did not test Conversation Within normal limits VERBAL EXPRESSION: Naming Responsive Within normal limits Confrontation Within normal limits Repetition Within normal limits Automatic Speech Within normal limits Spontaneous Utterances Words Within normal limits Sentences Within normal limits Conversation Within normal limits Paraphasias/Jargon not present Gestures/Augmentative Within normal limits Perseveration not present SPEECH MECHANISM: Oral Motor Within normal limits Speech Intelligibility Within normal limits Dysarthria not present Apraxia Oral did not test Verbal did not test LEVEL OF ALERTNESS: alert/focused COGNITIVE-COMMUNICATION SKILLS: ATTENTION/CONCENTRATION: Sustained (1:1 environment) Within normal limits Selective with distractions Impaired Alternating between tasks Did not test Divided between tasks Did not test MEMORY: Immediate Memory Impaired Short Term Memory: Daily Events/Activities Impaired Novel Information Impaired Delayed memory Impaired Jail Memory Within normal limits PROBLEM SOLVING/REASONING: Verbal Problem Solving Impaired Functional Problem Solving: Simple Impaired Complex Impaired Functional Math: Math Calculations Within normal limits Time Management Impaired Money Management Impaired Abstract Reasoning Did not test Deficit Reasoning Impaired Safety Awareness Impaired ORIENTATION: Person Within normal limits Place Impaired Time Impaired Situation Impaired EXECUTIVE FUNCTIONS: Initiation Within normal limits Organization Within normal limits Planning/Decision Making Did not test Self Monitoring Impaired Self Correction Impaired BEHAVIORAL OBSERVATIONS NOTED: flat affect, impulsivity, and delayed responses Updated communication goals: -Pt will be AAOx4 independently -Pt will recall novel information in 4/5 opportunities given ~5 minute delay -Pt will complete functional math and time management problems in 2/3 opportunities given min cues Swallowing: Presented pt with trials of thin via cup/straw, puree, soft & bite sized solids, and regular solids Mayra phase functional for all consistencies However, pt did demonstrate impulsivity by eating very quickly and taking large sized bites Required cues to slow down and BOX TOE CUTTER monitored rate by giving him 1 spoonful at a time Pharyngeal phase inferred, no overt s/sx of aspiration No overt cough or wet vocal quality Recommend: -Regular solids -Thin liquids -Meds as tolerated -Supervision with meals to monitor rate of intake -Slow intake, small bites/sips * Ancillary Progress Note - Emanuel Farfan RN - 09/07/2024 8:57 AM EST CARE MANAGEMENT - ADULT TRANSITION NOTE [facility] [address] [place] [address] Name: Goran Hester [facility] Date: 09/07/2024 Time: 8:58 AM Risk Stratification Risk Stratification Psycho Social / Medical Concerns Identified: Adjustment to illness/injury;New serious diagnosis (09/06/241421) Accessed [facility] to connect patients to social care resources: No (09/06/241421) OBRA or OPTIONS needed for placement: No (09/06/241421) Readmission Risk Score: 10.21 (09/07/24 0800) AM-PAC Score With Stairs : 6 (09/06/24 1035) Caregiver Information Emergency Contacts Name Relation Home Work Mobile Jose Antonio Adult Child [phone] Other Contacts Name Relation Home Work Mobile Tonya Waddell Adult Child [phone] Transition of Care Checklist Transition of Care Checklist (aka Readmission Risk Score) Discharge Disposition: (Goal is to return home to [facility] where he shares an apartment with his , Rossi.) (09/06/241433) Narrative: Patient not medically ready for discharge at this time per primary service. Remains NPO.Speech following. CM will continue to follow as discharge needs evolve Anticipated Transportation at Discharge: TBD Patient/Family Expectations: Home vs rehab. Transition Planning Transition Planning Transition Plan/Considerations: Needs uncertain at this time - Continue monitoring for needs;Discussed at Interdisciplinary Team / Boost Rounds (09/06/241433) [facility] Quality Rating provided to patient: No (09/06/241433) Repisodic Choice provided to patient: No (09/06/241433) Transition plan discussed with - Enter name and phone #: Pt's son Jose Antonio and IDT (09/06/241433) Insurance Considerations: N/A (09/06/241433) Post-Acute Care needs identified and Referrals Completed: (undtermined at this time.) (09/06/241433) Additional Considerations: Care Management will continue to monitor and assist with discharge planning needs * Care Plan - Mayda Ayala RN - 09/06/2024 5:29 PM EST Clinical Goal(s): SBP <140 (09/06/24 0800) Possible barriers to meeting goal(s)/advancing plan of care: Stroke diagnosis, history of HTN. Stability of the patient: Moderately stable - low risk of patient condition declining or worsening Summary regarding today's goal(s): Met: Patient maintained SBP <140. Recommendations: Continue hourly rounding and monitoring. * Communication - Shala Mosley DO - 09/06/2024 3:45 PM EST Brief Communication Note: Updated Jose Antonio, patient's son and medical POA, at bedside regarding patient's current clinical condition and plan going forward. He asked about functional outcome to which I explained it could be variable and take a few days to assess recovery. In the interim, I urged him to consider NG tube placement for feeds and medications as he likely may have difficulty with PO intake given his state of lethargy and inappropriateness for diet based of speech eval this morning. All questions answered. Of note patient did have anisocoria associated with bradycardia to 40's and hypotension. Discussed with attending and neurology who both recommended STAT CTH, which grossly did not show any acute changes. Formal read pending. Shala Mosley DO Critical Care Medicine Fellow * Ancillary Progress Note - Mago Flood RN - 09/06/2024 2:36 PM EST CARE MANAGEMENT - ADULT INITIAL SCREENING [facility]-[address] [address] Name: Goran Hester Location: [facility] A436/A Date: 09/06/2024 Time: 2:36 PM Discussed patient with the interdisciplinary care team. This Pediatric Audiologist performed a chart review and spoke with pt's son, Jose Antonio via phone to complete admission screen and assessed needs for transition planning. The medical care administrator role and services were explained and emotional support was provided. Chief Complaint: ICH Prior Living Arrangements What was your living situation prior to admission/observation?: At an Assisted Living Center (09/06/241421) Living Quarters: Assisted Living (09/06/241421) Number of steps to enter living quarters:: No (09/06/241421) Do you have serious difficulty walking or climbing stairs? (5 years old or older): Yes (09/05/24 1400) History of falling: Yes (09/06/24 0800) Prior Level of Functioning Describe the patient's ability prior to admission/observation to perform ADLs: Performs independently (09/06/241421) Requires assistance with: (has assitance with meals and medications) (09/06/241421) Describe the patient's mobility status prior to admission: Patient requires assistance with ambulation;Patient ambulates independently (09/06/241421) Patient uses assistive device: Yes (09/06/241421) If yes, choose:: Walker (09/06/241421) Caregiver Information Emergency Contacts Name Relation Home Work Mobile Jose Antonio Adult Child [phone] Other Contacts Name Relation Home Work Mobile Tonya Waddell Adult Child [phone] Risk Stratification/Psychosocial/Care Gaps Risk Stratification Psycho Social / Medical Concerns Identified: Adjustment to illness/injury;New serious diagnosis (09/06/241421) Accessed [facility] to connect patients to social care resources: No (09/06/241421) OBRA or OPTIONS needed for placement: No (09/06/241421) Readmission Risk Score: 11.43 (09/06/24 1201) AM-PAC Score With Stairs : 6 (09/06/24 1035) Prior to Admission Services Services Prior to Admission [facility] Services (Services received within the last 30 days with exception, Psych within last two years): Assisted Living;Durable Medical Equipment (09/06/241421) [facility] Durable Medical Equipment (DME) in home: Walker Rolling;Glucometer (09/06/241421) DME Name: [facility] (09/06/241421) [place] Dept[employer] (PDA) Waiver Program: N/A (09/06/241421) [facility] Transportation (Services received within the last 30 days): Facility Transportation;Family/Friends Personal Vehicle;Medical Transportation (02/11/25 1422) Outpatient Pediatric Audiologist: No care rehabilitation team lead to display Patient/Family Expectations: Pt's full name is Goran Ledbetter Jr. Karly and likes to be called "Walter". Pt resides with his , Rossi at [facility] [address] [place] [address] and Rochelle Lopez, Head Nurse is the contact for the facility but son and pt want to be private with what information is given at this time. CAYETANO will not be opened yet. Pt is independent with ADL's, ambulates to the dining room with his wheeled walker and uses transport Aides from the facility or his son, Jose Antonio or Johanne LUGO provide transportation. Pt uses OT services at the facility in 2022 but has not needed HH or other services since that time. Pt was transferred from [facility] on 09/05 due to left temporal lobe intraparenchymal hemorrhage and was admitted to ICU for Q 1 hour Neuro checks and is requiring Cardene infusion at this time. CM attempted to meet with pt at bedside however pt was sleeping and was not able to participate with initial assessment. Contact information was given to Jose Antonio to assist with discharge planning. For further screening information, please refer to the Care Management flow document. * Ancillary Progress Note - Soledad Bray PT - 09/06/2024 9:59 AM EST Goran Hester [facility] A436/A [id number] Attempted to see patient for PT evaluation on this date. Patient currently unavailable, as they areoff floor at this time. PT will continue to follow patient as able/appropriate. Thank you. * Ancillary Progress Note - Mariya Jewell, ALTON - 09/06/2024 8:48 AM EST LOW LEVEL COGNITIVE COMMUNICATION ASSESSMENT- Speech-Language Pathology [facility]-[address] [address] Name: Goran Hester Location: [facility] A436/A Date: 09/06/2024 Time: 8:49 AM Patient Status: Inpatient Insurance: Payor: MEDICARE / Plan: MEDICARE A AND B / Product Type: *No Product type* / Patient Age: [age] year old Referring Physician: Power Barba MD Admission Date: 09/05/2024 History: Per medical chart review, "Goran Hester is a 89 year old, right- handed male with an unknown past medical history; presents to [facility] transfer from an outside hospitalafter presenting with an altered mental status. Medical imaging completed at the outside hospital showed a left temporal intraparenchymal hemorrhage. The patient was transferred to [facility] for definitive care. 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 The patient was unable to participate in any history. Patient's son at bedside was able to give limited information regarding the current events. No known blood thinning medications " Imaging: CTA Head 09/05: "IMPRESSION 1. A grossly similar intraparenchymal hemorrhage in the left temporal lobe with surrounding edema, suggestive of NC territory infarct with hemorrhagic transformation. No definite abnormal enhancementor arteriovenous malformation. 2. 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 If there is clinical concern for dissection, consider MR angiography of the neck for further evaluation 3. 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 4. 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 5. Multiple prominent mediastinal lymph nodes, which could represent reactive lymph nod Educational History: Unable to obtain PRIOR FUNCTIONAL LEVEL: Unable to obtain Money Management is done by:Unable to obtain Homemaking: Unable to obtain Shopping: Unable to obtain Occupation: Unable to obtain Barriers to Learning: Medical Status Hearing Acuity: Deferred Best Learning Method: Combination Patient/Family Goals: Unable to obtain Pain:Nonverbal; unable to express pain RLA Level: n/a Assessment/Diagnosis: Pt presents with severe receptive/expressive language deficits, characterizedby difficulty opening eyes to verbal/visual/tactile stimuli, inability to verbally communicate wants/needs at this time, and unable to follow basic motor commands. Pt with verbal and motor response to aversive stimuli to R hand, stating "ow" and pulling hand away. Additionally, pt demonstrated facial gestures when presented with cold stimuli to forehead, lips, and cheek. Cognitive-Communciation Rehab Potential: Good and Fair RECOMMENDATIONS/TREATMENT PLAN: Mrjpfg-Xygimdzf-Omwtzzpht-Communication Therapy: Indicated 1-3 day(s) a week Communication Goals: -Pt will alert by opening eyes to his name in 2/3 opportunities given min cues -Pt will verbalize wants/needs in 80% of opportunities given mod cues -Pt will follow simple motor commands in 4/5 opportunities given min cues ANTICIPATED FREQUENCY (ON EVAL): 1-3 times per week PATIENT/FAMILY EDUCATION: Topic(s): n/a family not present Method of Education: n/a Additional Recommendations: n/a EVALUATION RESULTS: SPEECH LANGUAGE SKILLS LEVEL OF ALERTNESS unresponsive EXPRESSIVE COMMUNICATION Vocalizes/Verbalizes not present Facial Expression/Gestures present Yes/No (Mode of Response) not present VISUAL RESPONSE Eyes Open not present Blink to threat not present Localizing (bright object) Midline presentation not present Right presentation not present Left presentation not present Above eye level not present Below eye level not present Maintains eye contact not present Visual tracking (object/picture) Horizontal plane not present Vertical plane not present AUDITORY RESPONSE Startle to loud noises not present Localizing (voice) Right ear not present Left ear not present Localizing (environmental sounds) Right ear not present Left ear not present Responds to name not present Yes/No questions not present Follows commands not present TACTILE RESPONSE Stimulation to forehead present Stimulation to lips present Stimulation to extremities present Right Side present Left Side did not test Grasp/Release object did not test Responds to textures did not test OLFACTORY RESPONSE Pleasant did not test Noxious did not test GUSTATORY RESPONSE Pleasant did not test Noxious did not test * Pt Handout (on AVS) - [place], PATIENT HANDOUT - 09/06/2024 8:19 AM EST Images from the original note were not included. [id number] What Is Ischemic Stroke? The brain needs a constant supply of blood to work. During a stroke, blood stops flowing to part ofthe brain. The affected area is damaged. Its functions are harmed or even lost. Most strokes are caused by a blockage in a blood vessel that supplies the brain. This is an ischemic stroke. They can also occur if a blood vessel in the brain ruptures (hemorrhagic stroke). The carotids are large arteries that carry blood from the heart to the brain. From the heart to the brain The heart is a pump. It sends oxygen-rich blood out through blood vessels called arteries. If an artery between the heart and the brain is blocked, the brain can?t get enough oxygen. Some artery blockages are caused by fatty deposits (plaque). Arteries can also be blocked by blood clots. Some clotsform on the plaque. Others can form in the heart?especially in people with atrial fibrillation, an irregular heart rhythm. If a piece of plaque or clot breaks off and enters the bloodstream, it can block flow to the brain and cause a stroke. How a stroke occurs Ischemic stroke occurs when an artery that supplies the brain is greatly narrowed or blocked. This can be caused by a buildup of plaque. It can also occur when small pieces of plaque or blood clot (emboli) break off from the blood vessel or heart into the bloodstream. The emboli flow in the blood until they get stuck in a small blood vessel that limits blood flow to the brain. Healthy arteries. In a healthy artery, the lining of the artery wall is smooth. This lets blood flow freely from the heart to the rest of the body. The brain gets all the blood it needs to function well. Damaged arteries. High blood pressure, cigarette smoking, high cholesterol, or other problems can roughen artery saba. This allows plaque to build up in the saba. Blood clots may also form on the plaque. This can narrow the artery and limit blood flow. Healthy arteries Damaged arteries Know the symptoms of a stroke Weakness. You may feel a sudden weakness, tingling, or a loss of feeling on one side of your face or body including your arm or leg. Vision problems. You may have sudden double vision or trouble seeing in one or both eyes. Speech problems. You may have sudden trouble talking, slurred speech, or problems understanding others. Movement problems. You may have sudden trouble walking, dizziness, a feeling of spinning, a lossof balance, a feeling of falling, or blackouts. Remember: If you have any of these symptoms, call 911 and your doctor as soon as possible. B.E. F.A.S.T. is an easy way to remember the signs of a stroke. When you see the signs, you will know what you need to call 911 fast. Sidney EdwardsA.S.T. stands for: B is for balance. Sudden loss of balance or coordination. E is for eyes. Vision changes in one or both eyes. F is for face drooping. One side of the face is drooping or numb. When the person smiles, the smile is uneven. A is for arm weakness. One arm is weak or numb. When the person lifts both arms and the same time, one arm may drift downward. S is for speech difficulty. You may notice slurred speech or trouble speaking. The person can't repeat a simple sentence correctly when asked. T is for time to call 911. If someone shows any of these symptoms, even if they go away, call 911 right away. Make note of the time the symptoms first appeared. Last Reviewed Date: 2023 00:00:00 [id number] [employer]. All rights reserved. This information is not intended as a substitute for professional medical care. Always follow your healthcare professional's instructions. * Pt Handout (on AVS) - [place] PATIENT HANDOUT - 09/06/2024 8:19 AM EST Images from the original note were not included. [id number] What Is Hemorrhagic Stroke? The brain needs a constant supply of blood to work well During a stroke, blood stops flowing to part of the brain. The affected area is damaged. Its functions are harmed or even lost. Most strokes are caused by a blockage in a blood vessel that supplies the brain (ischemic stroke). They can also occur if a blood vessel in the brain breaks open (ruptures). This is a hemorrhagic stroke. The carotids are large arteries that carry blood from the heart to the brain. How a hemorrhagic stroke occurs Hemorrhagic stroke occurs when a blood vessel in the brain ruptures. This lets blood spill into or build up in nearby brain tissue. The extra blood presses on those brain cells. It can damage them oreven cause them to . Other brain cells because their normal blood supply is cut off because of high pressure in the skull. Blood from a ruptured artery puts pressure on the brain and damages brain cells. Last Reviewed Date: 2023 00:00:00 [id number] [employer]. All rights reserved. This information is not intended as a substitute for professional medical care. Always follow your healthcare professional's instructions. * Pt Handout (on AVS) - [place], PATIENT HANDOUT - 09/06/2024 8:19 AM EST Images from the original note were not included. [id number] Symptoms of a Stroke During a stroke, blood stops flowing to part of the brain or there is bleeding in the brain. This can damage areas in the brain that control the rest of the body. A stroke can happen to anyone at anyage. Call 911 and get help right away if any of these symptoms come on suddenly, even if the symptoms don?t last. Know the symptoms of a stroke A sudden feeling of weakness on one side of your body may be a sign that you are having a stroke. Weakness. You may feel a sudden weakness, tingling, or a loss of feeling on one side of your face or body including your arm or leg. Vision problems. You may have sudden double vision or trouble seeing in one or both eyes. Speech problems. You may have sudden trouble talking, slurred speech, or problems understanding others. Headache. You may have a sudden, severe headache. Movement problems. You may have sudden trouble walking, dizziness, a feeling of spinning, a lossof balance, a feeling of falling, or blackouts. Seizure. You may also have a seizure as the first symptom of a stroke. When to call 911 Remember: If you have any of these symptoms, or if someone you are with has these symptoms, call 911 as soon as possible. Never drive yourself or the person with symptoms to the hospital. The ambulance can alert the hospital and start treatment right away. B.E. F.A.S.T. is an easy way to remember the signs of a stroke. When you see these signs, you will know that you need to call 911 fast. B.E. F.A.S.T. stands for: B is for balance. Sudden loss of balance or coordination. E is for eyes. Vision changes in one or both eyes. F is for face drooping. One side of the face is drooping or numb. When the person smiles, the smile is uneven. A is for arm weakness. One arm is weak or numb. When the person lifts both arms at the same time, one arm may drift downward. S is for speech difficulty. You may notice slurred speech or difficulty speaking. The person can't repeat a simple sentence correctly when asked. T is for time to dial 911. If someone shows any of these symptoms, even if they go away, call 911 right away. Make note of the time the symptoms first appeared. Last Reviewed Date: 2024 00:00:00 [id number] [employer]. All rights reserved. This information is not intended as a substitute for professional medical care. Always follow your healthcare professional's instructions. * Pt Handout (on AVS) - [place] PATIENT HANDOUT - 09/06/2024 8:19 AM EST [id number] Discharge Instructions for Stroke You have a high risk for a stroke, or a TIA (transient ischemic attack). During a stroke, blood stops flowing to part of your brain. This can damage areas in the brain that control other parts of thebody. Symptoms from a stroke depend on which part of the brain has been affected. Stroke risk factors Once you?ve had a stroke, you?re at greater risk for another one. Listed below are some other factors that can raise your risk for a stroke: High blood pressure High cholesterol Cigarette or cigar smoking Diabetes Carotid or other artery disease Atrial fibrillation, atrial flutter, or other heart disease Not being physically active Obesity Certain blood disorders, such as sickle cell anemia Drinking too much alcohol Abusing street drugs Race Gender Family history of stroke Diet high in salty, fried, or greasy foods Changes in daily living Doing some everyday tasks may be hard after you?ve had a stroke. But you can learn new ways to manage. In fact, doing daily activities may help you to regain muscle strength. This can help your affected arm or leg work more normally. Be patient. Give yourself time to adjust. And appreciate the progress you make. Daily activities You may be at risk of falling. Make changes to your home to help you walk more easily. A therapist will decide if you need an assistive device, such as a cane or walker, to walk safely. You may need to see an occupational therapist (OT). Or you may see a physical therapist (PT). Thesehealthcare providers can help you to learn new ways of doing things. For example, you may need to make changes in how you bathe or dress. You may also need a speech therapist. This is someone who helps you speak normally again and be able to swallow. Tips for showering or bathing Test the water temperature with a hand or foot that was not affected by the stroke. Use grab bars, a shower seat, a handheld showerhead, and a long-handled brush. Use any other device as advised by your therapists. Tips for getting dressed Dress while sitting, starting with the affected side or limb. Wear shirts that pull easily over your head. Wear pants or skirts with elastic waistbands. Use zippers with loops attached to the pull tabs. Lifestyle changes Take your medicines exactly as directed. Don?t skip doses. Begin an exercise program. Ask your provider how to get started. Ask how much activity you should try to get every day or week. You can benefit from simple activities such as walking or gardening. Limit how much alcohol you drink. Control your cholesterol level. Follow your provider?s advice about how to do this. If you are a smoker, quit now. Join a stop-smoking program to improve your chances of success. Ask your provider about medicines or other methods to help you quit. Learn stress management methods. These can help you deal with stress in your home and work life. Diet Your healthcare provider will guide you on changes you may need to make to your diet. They may advise that you see a registered dietitian for help with changes. The changes can improve your cholesterol, blood pressure, and blood sugar. Changes may include: Reducing the amount of fat and cholesterol you eat Reducing the amount of salt (sodium) in your diet, especially if you have high blood pressure Eating more vegetables and fruits Eating more lean proteins, such as fish, poultry, and beans and peas (legumes) Eating less red meat and processed meats Using low-fat dairy products Limiting vegetable oils and nut oils Limiting sweets and processed foods such as chips, cookies, and baked goods Not eating trans fats. These are often found in processed foods. Don't eat any food that has hydrogenated oils listed in its ingredients. Follow-up care Keep your medical appointments. Close follow-up is important to stroke rehabilitation and recovery. Some medicines require blood tests to check for progress or problems. Keep follow-up appointments for any blood tests ordered by your providers. Call 911 Call 911 right away if you have any of the following symptoms of stroke: Weakness, tingling, or loss of feeling on one side of your face or body Sudden double vision or trouble seeing in one or both eyes Sudden trouble talking or slurred speech Trouble understanding others Sudden, severe headache Dizziness, loss of balance, or a sense of falling Blackouts or seizures B.E. F.A.S.T. is an easy way to remember the signs of stroke. When you see these signs, you know that you need to call 911 fast. B.E. F.A.S.T. stands for: B is for balance. Sudden loss of balance or coordination. E is for eyes. Vision changes in one or both eyes. F is for face drooping. One side of the face is drooping or numb. When the person smiles, the smile is uneven. A is for arm weakness. One arm is weak or numb. When the person lifts both arms at the same time, one arm may drift downward. S is for speech difficulty. You may notice slurred speech or trouble speaking. The person can't repeat a simple sentence correctly when asked. T is for time to call 911. If someone shows any of these symptoms, even if they go away, call 911 right away. Make note of the time the symptoms first appeared. Last Reviewed Date: 2021 00:00:00 [id number] [employer]. All rights reserved. This information is not intended as a substitute for professional medical care. Always follow your healthcare professional's instructions. * Care Plan - Tierra Sahu RN - 09/05/2024 4:01 PM EST Clinical Goal(s): sbp <140 (09/05/24 1400) Possible barriers to meeting goal(s)/advancing plan of care: HTN, IPH Stability of the patient: Moderately unstable - medium risk of patient condition declining or worsening Summary regarding today's goal(s): Met: pt's bp was maintained <140 with prn labatelol during my shift Recommendations: continue to monitor blood pressure and give prn/start ordered drip as needed. documented in this encounter Plan of Treatment Upcoming Encounters Date Type Department Care Team (Late st Contact Info) Description 09/29/2024 9:30 AM EST Office Visit Cardiology, [facility] [address] [facility] [place] [id number] Ksenia Arenas CRNP [address] [facility] [place] [address] 11/29/2024 3:00 PM EDT Office Visit Neurosurgery, [place] [address] [place] [address] Haider Quinn MD [address], [place] [id number] 01/04/2025 11:20 AM EDT Telemedicine Neurology [facility] [place] [address] [place] [address] Sagar Ohara MD [address] [place] [address] [facility] [address] [place] [address] Scheduled Orders Name Type Priority Associated Diagnoses Orde r Schedule EKG EKG Routine Chest pain One Time for 1 Occurrences starting 09/05/2024 until 09/05/2024 MRI BRAIN W WO CONTRAST Medical Imaging Routine Intraparenchymal hemorrhage of brain (HCC) Expected: 12/05/2024, Expires: 10/05/2025 BLOOD GAS, ARTERIAL Lab STAT One T tabitha for 1 Occurrences starting 09/08/2024 until 09/08/2024 XR CHEST 1 VIEW Medical Imaging STAT One Time for 1 Occurrences starting 09/09/2024 until 09/09/2024 BASIC METABOLIC PANEL Lab Routine Stage 3 chronic kidney disease, unspecified whether stage 3a or 3b CKD (HCC) Expected: 09/27/2024, Expires: 09/20/2025 DIGOXIN LEVEL Lab Routine Atrial fibrillation with RVR (HCC) Expected: 09/27/2024, Expires: 09/20/2025 Scheduled Referrals Name Type Priority Associated Diagnoses Orde r Schedule VASCULAR SURGERY REFERRAL OP Referral Within 10 days (routine) Abnormal ankle brachial index (JENN) Ordered: 09/10/2024 Health Maintenance Due Date Last Done Comments Depression Monitoring 1947 DTap/Tdap Vaccines (1 - Tdap) 1954 Pneumococcal Vaccine: 50+ Ye ars (1 of 2 - PCV) 1956 Zoster Vaccines (1 of 2) 1987 COVID-19 Vaccine (2023-2 5 season) 2024 Influenza Vaccine (FLU shot) [...] Not on filedocumented as of this encounter Procedures Procedure Name Priority Date/Time Associated Diagnosis Comments GLUCOSE METER, POINT OF CARE [facility] 09/21/2024 7:35 AM EST PHOSPHORUS STAT 09/21/2024 5:17 AM EST MAGNESIUM STAT 09/21/2024 5:17 AM EST GLUCOSE METER, POINT OF CARE [facility] 09/20/2024 5:12 PM EST GLUCOSE METER, POINT OF CARE [facility] 09/20/2024 12:00 PM EST GLUCOSE METER, POINT OF CARE [facility] 09/20/2024 8:05 AM EST BASIC METABOLIC PANEL Add-on 09/20/2024 6:49 AM EST PHOSPHORUS STAT 09/20/2024 6:49 AM EST MAGNESIUM STAT 09/20/2024 6:49 AM EST GLUCOSE METER, POINT OF CARE [facility] 09/19/2024 9:12 PM EST GLUCOSE METER, POINT OF CARE [facility] 09/19/2024 4:36 PM EST GLUCOSE METER, POINT OF CARE [facility] 09/19/2024 11:33 AM EST GLUCOSE METER, POINT OF CARE [facility] 09/19/2024 7:41 AM EST BASIC METABOLIC PANEL Routine 09/19/2024 6:26 AM EST PHOSPHORUS STAT 09/19/2024 6:26 AM EST MAGNESIUM STAT 09/19/2024 6:26 AM EST GLUCOSE METER, POINT OF CARE [facility] 09/18/2024 9:35 PM EST GLUCOSE METER, POINT OF CARE [facility] 09/18/2024 5:17 PM EST GLUCOSE METER, POINT OF CARE [facility] 09/18/2024 11:43 AM EST GLUCOSE METER, POINT OF CARE [facility] 09/18/2024 7:50 AM EST BASIC METABOLIC PANEL Routine 09/18/2024 7:17 AM EST PHOSPHORUS STAT 09/18/2024 7:17 AM EST CBC Routine 09/18/2024 7:17 AM EST MAGNESIUM STAT 09/18/2024 7:17 AM EST GLUCOSE METER, POINT OF CARE [facility] 09/17/2024 8:41 PM EST GLUCOSE METER, POINT OF CARE [facility] 09/17/2024 5:01 PM EST GLUCOSE METER, POINT OF CARE [facility] 09/17/2024 11:31 AM EST GLUCOSE METER, POINT OF CARE [facility] 09/17/2024 7:51 AM EST BASIC METABOLIC PANEL Routine 09/17/2024 7:18 AM EST PHOSPHORUS STAT 09/17/2024 7:18 AM EST MAGNESIUM STAT 09/17/2024 7:18 AM EST DIGOXIN LEVEL Routine 09/17/2024 7:18 AM EST GLUCOSE METER, POINT OF CARE [facility] 09/16/2024 10:27 PM EST GLUCOSE METER, POINT OF CARE [facility] 09/16/2024 9:07 PM EST GLUCOSE METER, POINT OF CARE [facility] 09/16/2024 4:42 PM EST BASIC METABOLIC PANEL Routine 09/16/2024 8:01 AM EST PHOSPHORUS STAT 09/16/2024 8:01 AM EST MAGNESIUM STAT 09/16/2024 8:01 AM EST GLUCOSE METER, POINT OF CARE [facility] 09/16/2024 7:41 AM EST GLUCOSE METER, POINT OF CARE [facility] 09/15/2024 9:25 PM EST GLUCOSE METER, POINT OF CARE [facility] 09/15/2024 4:51 PM EST GLUCOSE METER, POINT OF CARE [facility] 09/15/2024 11:25 AM EST POTASSIUM, WHOLE BLOOD Routine 09/15/2024 10:33 AM EST GLUCOSE METER, POINT OF CARE [facility] 09/15/2024 7:32 AM EST XR CHEST 1 VIEW Routine 09/15/2024 7:19 AM EST Abnormal findings on diagnostic imaging of other specified body structures Other nonspecific abnormal finding of lung field BASIC METABOLIC PANEL Routine 09/15/2024 6:45 AM EST PHOSPHORUS STAT 09/15/2024 6:45 AM EST MAGNESIUM STAT 09/15/2024 6:45 AM EST GLUCOSE METER, POINT OF CARE [facility] 09/14/2024 8:53 PM EST GLUCOSE METER, POINT OF CARE [facility] 09/14/2024 6:03 PM EST BASIC METABOLIC PANEL Routine 09/14/2024 5:43 PM EST MAGNESIUM Add-on 09/14/2024 5:43 PM EST GLUCOSE METER, POINT OF CARE [facility] 09/14/2024 11:38 AM EST CBC Routine 09/14/2024 8:08 AM EST GLUCOSE METER, POINT OF CARE [facility] 09/14/2024 7:29 AM EST BASIC METABOLIC PANEL Routine 09/14/2024 6:44 AM EST PHOSPHORUS STAT 09/14/2024 6:44 AM EST MAGNESIUM STAT 09/14/2024 6:44 AM EST GLUCOSE METER, POINT OF CARE [facility] 09/13/2024 9:05 PM EST GLUCOSE METER, POINT OF CARE [facility] 09/13/2024 4:28 PM EST GLUCOSE METER, POINT OF CARE [facility] 09/13/2024 11:48 AM EST GLUCOSE METER, POINT OF CARE [facility] 09/13/2024 7:43 AM EST BASIC METABOLIC PANEL Routine 09/13/2024 5:58 AM EST PHOSPHORUS STAT 09/13/2024 5:58 AM EST MAGNESIUM STAT 09/13/2024 5:58 AM EST GLUCOSE METER, POINT OF CARE [facility] 09/12/2024 8:48 PM EST GLUCOSE METER, POINT OF CARE [facility] 09/12/2024 4:33 PM EST IRON SCREEN, INCLUDING TIBC Add-on 09/12/2024 4:24 PM EST GLUCOSE METER, POINT OF CARE [facility] 09/12/2024 12:51 PM EST GLUCOSE METER, POINT OF CARE [facility] 09/12/2024 10:[address] HEAD/BRAIN WO CONTRAST Routine 09/12/2024 10:07 AM EST GLUCOSE METER, POINT OF CARE [facility] 09/12/2024 8:08 AM EST BASIC METABOLIC PANEL Routine 09/12/2024 7:21 AM EST FOLIC ACID Add-on 09/12/2024 7:21 AM EST PHOSPHORUS STAT 09/12/2024 7:21 AM EST CBC Routine 09/12/2024 7:21 AM EST MAGNESIUM STAT 09/12/2024 7:21 AM EST FERRITIN Add-on 09/12/2024 7:21 AM EST VITAMIN B12 Add-on 09/12/2024 7:21 AM EST GLUCOSE METER, POINT OF CARE [facility] 09/11/2024 11:36 PM EST XR CHEST 1 VIEW STAT 09/11/2024 11:12 PM EST Shortness of breath Dependence on supplemental oxygen BLOOD GAS, ARTERIAL STAT 09/11/2024 1 0:41 PM EST GLUCOSE METER, POINT OF CARE [facility] 09/11/2024 8:57 PM EST GLUCOSE METER, POINT OF CARE [facility] 09/11/2024 4:59 PM EST GLUCOSE METER, POINT OF CARE [facility] 09/11/2024 11:30 AM EST CBC Routine 09/11/2024 8:04 AM EST BASIC METABOLIC PANEL Routine 09/11/2024 6:44 AM EST PHOSPHORUS STAT 09/11/2024 6:44 AM EST MAGNESIUM STAT 09/11/2024 6:44 AM EST GLUCOSE METER, POINT OF CARE [facility] 09/11/2024 5:26 AM EST GLUCOSE METER, POINT OF CARE [facility] 09/11/2024 12:18 AM EST GLUCOSE METER, POINT OF CARE [facility] 09/10/2024 6:05 PM EST GLUCOSE METER, POINT OF CARE [facility] 09/10/2024 11:58 AM EST GLUCOSE METER, POINT OF CARE [facility] 09/10/2024 6:07 AM EST BASIC METABOLIC PANEL Routine 09/10/2024 6:03 AM EST PHOSPHORUS STAT 09/10/2024 6:03 AM EST CBC Routine 09/10/2024 6:03 AM EST MAGNESIUM STAT 09/10/2024 6:03 AM EST XR CHEST 1 VIEW STAT 09/10/2024 3:42 AM EST Shortness of breath GLUCOSE METER, POINT OF CARE [facility] 09/10/2024 12:08 AM EST GLUCOSE METER, POINT OF CARE [facility] 09/09/2024 4:43 PM EST GLUCOSE METER, POINT OF CARE [facility] 09/09/2024 11:59 AM EST BASIC METABOLIC PANEL Routine 09/09/2024 7:49 AM EST PHOSPHORUS STAT 09/09/2024 7:49 AM EST CBC Routine 09/09/2024 7:49 AM EST MAGNESIUM STAT 09/09/2024 7:49 AM EST GLUCOSE METER, POINT OF CARE [facility] 09/09/2024 5:15 AM EST GLUCOSE METER, POINT OF CARE [facility] 09/08/2024 9:43 PM EST HC ECG TRACING ONLY STAT 09/08/2024 9 :13 PM EST Chest pain VA ECG ROUTINE ECG W/LEAST 12 LDS I&R ONLY STAT 09/08/2024 5:14 PM EST Chest pain GLUCOSE METER, POINT OF CARE [facility] 09/08/2024 4:16 PM EST GLUCOSE METER, POINT OF CARE [facility] 09/08/2024 1:13 PM EST XR CHEST 1 VIEW STAT 09/08/2024 12:04 PM EST Chronic pulmonary edema BASIC METABOLIC PANEL Routine 09/08/2024 6:05 AM EST PHOSPHORUS STAT 09/08/2024 6:05 AM EST CBC Routine 09/08/2024 6:05 AM EST MAGNESIUM STAT 09/08/2024 6:05 AM EST VA ECG ROUTINE ECG W/LEAST 12 LDS I&R ONLY STAT 09/07/2024 1:25 PM EST Electrolyte abnormality TROPONIN T, HIGH SENSITIVITY Add-on 09/07/2024 5:32 AM EST LIPID PANEL WITH DIRECT LDL IF TG IS HIGH Add-on 09/07/2024 5:32 AM EST HEMOGLOBIN A1C Add-on 09/07/2024 5:32 AM EST BASIC METABOLIC PANEL Routine 09/07/2024 5:32 AM EST PHOSPHORUS STAT 09/07/2024 5:32 AM EST CBC Routine 09/07/2024 5:32 AM EST MAGNESIUM STAT 09/07/2024 5:32 AM EST VASC ANKLE BRACHIAL INDICES WITHOUT PPG (PAD) Routine 09/06/2024 3:[address] HEAD/BRAIN WO CONTRAST STAT 09/06/2024 3:27 PM EST ECHO, COMPLETE (2D), TRANS-THORACIC Routine 09/06/2024 2:10 PM EST Stroke (HCC) MRI BRAIN W WO CONTRAST STAT 09/06/2024 10:05 AM EST Intraparenchymal hemorrhage of brain (HCC) Disorder of brain, unspecified Cerebral edema (HCC) Other abnormal findings on diagnostic imaging of central nervous system Exposure to other specified factors, initial encounter BASIC METABOLIC PANEL Routine 09/06/2024 6:35 AM EST PHOSPHORUS Add-on 09/06/2024 6:35 AM EST CBC Routine 09/06/2024 6:35 AM EST MAGNESIUM Add-on 09/06/2024 6:35 AM EST CTA HEAD/CTA NECK Routine 09/05/2024 10: 06 PM EST TEG (THOMROBOELASTOGRAPH ) PANEL STAT 09/05/2024 2:56 PM EST TEG (THROMBOELASTOGRAPH) , HEPARINASE STAT 09/05/2024 2:56 PM EST TEG (THROMBOELASTOGRAPH) STAT 09/05/2024 2:56 PM EST RADIOLOGY EXAM - CT (IMAGES ONLY, NO REPORT) Routine 09/05/2024 2:[address] HEAD/BRAIN WO CONTRAST STAT 09/05/2024 2:30 PM EST 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 Exposure to other specified factors, initial encounter HC ECG TRACING ONLY STAT 09/05/2024 2 :09 PM EST Chest pain DIFFERENTIAL, AUTOMATED STAT 09/05/2024 2:07 PM EST HEPATIC FUNCTION PANEL STAT 09/05/2024 2:07 PM EST BASIC METABOLIC PANEL STAT 09/05/2024 2:07 PM EST ABO/RH STAT 09/05/2024 2:07 PM EST TYPE AND SCREEN STAT 09/05/2024 2:07 PM EST CBC STAT 09/05/2024 2:07 PM EST PT INR STAT 09/05/2024 2:07 PM EST PHOSPHORUS STAT 09/05/2024 2:07 PM EST CALCIUM, IONIZED, WHOLE BLOOD STAT 09/05/2024 2:07 PM EST APTT STAT 09/05/2024 2:07 PM EST CBC STAT 09/05/2024 2:07 PM EST MAGNESIUM STAT 09/05/2024 2:07 PM EST MRSA SCREEN, PCR Routine 09/05/2024 1:57 PM EST documented in this encounter Results * (ABNORMAL) GLUCOSE METER, POINT OF CARE (09/21/2024 7:35 AM EST) Pathologist [facility] [place] Glucose - POCT 130(H) 70 - 120 mg/dL 09/21/2024 7:41 AM EST [facility] Blood Whole blood specimen / Unknown 09/21/2024 7:35 AM EST 09/21/2024 7:41 AM EST us Annette Carroll MD LAB POINT OF CARE TE ST DOCKED DEVICE UNSOLICITED RESULTS Final Result [facility] Lecere [facility] [address] [place] [address] * PHOSPHORUS (09/21/2024 5:17 AM EST) Pathologist [facility] [place] Phosphorus 3.5 2.5 - 4.8 mg/dL 09/21/2024 6:03 AM EST LABORATORY [facility] Blood Venous blood specimen / Unknown Venipuncture / Unknown 09/21/2024 5:17 AM EST 09/21/2024 5:32 AM EST Alfreda Kaurangie DAHL LAB BLOOD ORDERABLE S Final Result LABORATORY [facility] [address] [place] [address] * MAGNESIUM (09/21/2024 5:17 AM EST) [facility] Magnesium 1.9 1.5 - 2.6 mg/dL 09/21/2024 6:03 AM EST LABORATORY [facility] Blood Venous blood specimen / Unknown Venipuncture / Unknown 09/21/2024 5:17 AM EST 09/21/2024 5:32 AM EST Alfreda Kaurangie DAHL LAB BLOOD ORDERABLE S Final Result LABORATORY [facility] [address] [place] [address] * (ABNORMAL) GLUCOSE METER, POINT OF CARE (09/20/2024 5:12 PM EST) [facility] Glucose - POCT 164(H) 70 - 120 mg/dL 09/20/2024 5:15 PM EST [facility] Blood Whole blood specimen / Unknown 09/20/2024 5:12 PM EST 09/20/2024 5:15 PM EST Catalino Valentino MD LAB POINT OF CARE TE ST DOCKED DEVICE UNSOLICITED RESULTS Final Result [facility] [address] [place] [address] * (ABNORMAL) GLUCOSE METER, POINT OF CARE (09/20/2024 12:00 PM EST) Glucose - POCT 155(H) 70 - 120 mg/dL 09/20/2024 12:12 PM EST [facility] Blood Whole blood specimen / Unknown 09/20/2024 12:00 PM EST 09/20/2024 12:12 PM EST us Catalino Valentino MD LAB POINT OF CARE TE ST DOCKED DEVICE UNSOLICITED RESULTS Final Result [facility] [address] [place] [address] * (ABNORMAL) GLUCOSE METER, POINT OF CARE (09/20/2024 8:05 AM EST) Glucose - POCT 149(H) 70 - 120 mg/dL 09/20/2024 8:58 AM EST [facility] Blood Whole blood specimen / Unknown 09/20/2024 8:05 AM EST 09/20/2024 8:58 AM EST us Catalino Valentino MD LAB POINT OF CARE TE ST DOCKED DEVICE UNSOLICITED RESULTS Final Result [facility] [address] [place] [address] * (ABNORMAL) BASIC METABOLIC PANEL (09/20/2024 6:49 AM EST) BUN 8 6 - 20 mg/dL 09/20/2024 8:07 AM EST [facility] CREATININE 1.6(H) 0.6 - 1.2 mg/dL 09/20/2024 8:07 AM EST [facility] EGFR 40(L) >=60 mL/min 09/20/2024 8:07 AM EST [facility] Comment:eGFR is calculated b ased on the CKD-EPI 2020 equation. SODIUM 139 135 - 146 mmol/L 09/20/2024 8:07 AM EST [facility] POTASSIUM 3.7 3.5 - 5.1 mmol/L 09/20/2024 8:07 AM EST [facility] CHLORIDE 102 98 - 107 mmol/L 09/20/2024 8:07 AM EST [facility] CO2 26 22 - 32 mmol/L 09/20/2024 8:07 AM EST [facility] ANION GAP 11 7 - 15 mmol/L 09/20/2024 8:07 AM EST [facility] GLUCOSE 160(H) 70 - 120 mg/dL 09/20/2024 8:07 AM EST [facility] CALCIUM 8.5 8.4 - 10.2 mg/dL 09/20/2024 8:07 AM EST LABORATORY C Blood Venous blood specimen / Unknown Venipuncture / Unknown 09/20/2024 6:49 AM EST 09/20/2024 7:00 AM EST Catalino Valentino MD LAB BLOOD ORDERABLES Final Resul t Performing Organization Address City/[facility] Co de Phone Number LABORATORY [facility] [address] [place] [address] * PHOSPHORUS (09/20/2024 6:49 AM EST) Phosphorus 3.1 2.5 - 4.8 mg/dL 09/20/2024 7:26 AM EST LABORATORY [facility] Blood Venous blood specimen / Unknown Venipuncture / Unknown 09/20/2024 6:49 AM EST 09/20/2024 7:00 AM EST Alfreda DAHL LAB BLOOD ORDERABLE S Final Result LABORATORY [facility] [address] [place] [address] * MAGNESIUM (09/20/2024 6:49 AM EST) Magnesium 2.1 1.5 - 2.6 mg/dL 09/20/2024 7:26 AM EST LABORATORY [facility] Blood Venous blood specimen / Unknown Venipuncture / Unknown 09/20/2024 6:49 AM EST 09/20/2024 7:00 AM EST Alfreda Lisset Ariane DAHL LAB BLOOD ORDERABLE S Final Result Performing Organization Address City/[facility]/ZIP Co de Phone Number LABORATORY [facility] [address] [place] [address] * (ABNORMAL) GLUCOSE METER, POINT OF CARE (09/19/2024 9:12 PM EST) Glucose - POCT 133(H) 70 - 120 mg/dL 09/19/2024 9:19 PM EST [employer] Blood Whole blood specimen / Unknown 09/19/2024 9:12 PM EST 09/19/2024 9:19 PM EST Catalino Valentino MD LAB POINT OF CARE TE ST DOCKED DEVICE UNSOLICITED RESULTS Final Result Performing Organization Address [facility] Co de Phone Number [facility] [address] [place] [address] * (ABNORMAL) GLUCOSE METER, POINT OF CARE (09/19/2024 4:36 PM EST) Glucose - POCT 197(H) 70 - 120 mg/dL 09/19/2024 4:40 PM EST [employer] Blood Whole blood specimen / Unknown 09/19/2024 4:36 PM EST 09/19/2024 4:40 PM EST Catalino Valentino MD LAB POINT OF CARE TE ST DOCKED DEVICE UNSOLICITED RESULTS Final Result Performing Organization Address City/[facility]/ZIP Co de Phone Number [facility] [address] [place] [address] * (ABNORMAL) GLUCOSE METER, POINT OF CARE (09/19/2024 11:33 AM EST) Glucose - POCT 171(H) 70 - 120 mg/dL 09/19/2024 11:43 AM EST [facility] Blood Whole blood specimen / Unknown 09/19/2024 11:33 AM EST 09/19/2024 11:43 AM EST us Catalino Valentino MD LAB POINT OF CARE TE ST DOCKED DEVICE UNSOLICITED RESULTS Final Result Performing Organization Address [facility]/ZIP Co de Phone Number [facility] [address] [place] [address] * (ABNORMAL) GLUCOSE METER, POINT OF CARE (09/19/2024 7:41 AM EST) Glucose - POCT 139(H) 70 - 120 mg/dL 09/19/2024 7:[address] [facility] Blood Whole blood specimen / Unknown 09/19/2024 7:41 AM EST 09/19/2024 7:46 AM EST Catalino Valentino MD LAB POINT OF CARE TE ST DOCKED DEVICE UNSOLICITED RESULTS Final Result Performing Organization Address [facility] de Phone Number [facility] [address] [place] [address] * PHOSPHORUS (09/19/2024 6:26 AM EST) Phosphorus 3.9 2.5 - 4.8 mg/dL 09/19/2024 7:04 AM EST [facility] Blood Venous blood specimen / Unknown Venipuncture / Unknown 09/19/2024 6:26 AM EST 09/19/2024 6:32 AM EST Alfreda DAHL LAB BLOOD ORDERABLE S Final Result Performing Organization Address City/[facility]/ZIP Co de Phone Number LABORATORY [facility] [address] [place] [address] * MAGNESIUM (09/19/2024 6:26 AM EST) Magnesium 1.8 1.5 - 2.6 mg/dL 09/19/2024 7:04 AM EST LABORATORY [facility] Blood Venous blood specimen / Unknown Venipuncture / Unknown 09/19/2024 6:26 AM EST 09/19/2024 6:32 AM EST us Alfreda Lissetangie DAHL LAB BLOOD ORDERABLE S Final Result LABORATORY [facility] [address] [place] [address] * (ABNORMAL) BASIC METABOLIC PANEL (09/19/2024 6:26 AM EST) BUN 7 6 - 20 mg/dL 09/19/2024 7:04 AM EST [facility] CREATININE 1.6(H) 0.6 - 1.2 mg/dL 09/19/2024 7:04 AM EST [facility] EGFR 41(L) >=60 mL/min 09/19/2024 7:04 AM EST [facility] Comment:eGFR is calculated b ased on the CKD-EPI 2020 equation. SODIUM 142 135 - 146 mmol/L 09/19/2024 7:04 AM EST [facility] POTASSIUM 4.1 3.5 - 5.1 mmol/L 09/19/2024 7:04 AM EST [facility] CHLORIDE 104 98 - 107 mmol/L 09/19/2024 7:04 AM EST [facility] CO2 27 22 - 32 mmol/L 09/19/2024 7:04 AM EST [facility] ANION GAP 11 7 - 15 mmol/L 09/19/2024 7:04 AM EST [facility] GLUCOSE 123(H) 70 - 120 mg/dL 09/19/2024 7:04 AM EST [facility] CALCIUM 8.5 8.4 - 10.2 mg/dL 09/19/2024 7:04 AM EST LABORATORY C Blood Venous blood specimen / Unknown Venipuncture / Unknown 09/19/2024 6:26 AM EST 09/19/2024 6:32 AM EST us Michelle Kaur MD LAB BLOOD ORDERABLES Final Resul t LABORATORY [facility] [address] [place] [address] * (ABNORMAL) GLUCOSE METER, POINT OF CARE (09/18/2024 9:35 PM EST) Glucose - POCT 193(H) 70 - 120 mg/dL 09/18/2024 9:41 PM EST [facility] Blood Whole blood specimen / Unknown 09/18/2024 9:35 PM EST 09/18/2024 9:41 PM EST us Catalino Valentino MD LAB POINT OF CARE TE ST DOCKED DEVICE UNSOLICITED RESULTS Final Result [facility] [address] [place] [address] * (ABNORMAL) GLUCOSE METER, POINT OF CARE (09/18/2024 5:17 PM EST) Glucose - POCT 173(H) 70 - 120 mg/dL 09/18/2024 5:33 PM EST [facility] Blood Whole blood specimen / Unknown 09/18/2024 5:17 PM EST 09/18/2024 5:33 PM EST us Catalino Valentino MD LAB POINT OF CARE TE ST DOCKED DEVICE UNSOLICITED RESULTS Final Result Performing Organization Address City/[facility]/ZIP Co de Phone Number [facility] [address] [place] [address] * (ABNORMAL) GLUCOSE METER, POINT OF CARE (09/18/2024 11:43 AM EST) Glucose - POCT 200(H) 70 - 120 mg/dL 09/18/2024 11:55 AM EST [facility] Blood Whole blood specimen / Unknown 09/18/2024 11:43 AM EST 09/18/2024 11:55 AM EST us Catalino Valentino MD LAB POINT OF CARE TE ST DOCKED DEVICE UNSOLICITED RESULTS Final Result [facility] [address] [place] [address] * (ABNORMAL) GLUCOSE METER, POINT OF CARE (09/18/2024 7:50 AM EST) Glucose - POCT 145(H) 70 - 120 mg/dL 09/18/2024 7:[address] [facility] Blood Whole blood specimen / Unknown 09/18/2024 7:50 AM EST 09/18/2024 7:57 AM EST Catalino Valentino MD LAB POINT OF CARE TE ST DOCKED DEVICE UNSOLICITED RESULTS Final Result [facility] [address] [place] [address] * PHOSPHORUS (09/18/2024 7:17 AM EST) Pathologist [facility] Phosphorus 4.0 2.5 - 4.8 mg/dL 09/18/2024 7:58 AM EST LABORATORY [facility] Blood Venous blood specimen / Unknown Venipuncture / Unknown 09/18/2024 7:17 AM EST 09/18/2024 7:32 AM EST Alfreda DAHL LAB BLOOD ORDERABLE S Final Result Performing Organization Address City/[facility]/ZIP Co de Phone Number LABORATORY [facility] [address] [place] [address] * MAGNESIUM (09/18/2024 7:17 AM EST) Pathologist [facility] Magnesium 2.0 1.5 - 2.6 mg/dL 09/18/2024 7:58 AM EST LABORATORY [facility] Blood Venous blood specimen / Unknown Venipuncture / Unknown 09/18/2024 7:17 AM EST 09/18/2024 7:32 AM EST Alfreda DAHL LAB BLOOD ORDERABLE S Final Result Performing Organization Address City/[facility]/ZIP Co de Phone Number LABORATORY [facility] [address] [place] [address] * (ABNORMAL) CBC (09/18/2024 7:17 AM EST) Pathologist [facility] WBC 8.56 4.00 - 10.80 K/uL 09/18/2024 7:41 AM EST [facility] RBC 3.81 4.50 - 5.25 M/uL 09/18/2024 7:41 AM EST [facility] HGB 10.8(L) 14.0 - 16.8 g/dL 09/18/2024 7:41 AM EST [facility] HCT 34.2(L) 40.0 - 48.4 % 09/18/2024 7:41 AM EST [facility] MCV 89.8 82.0 - 99.5 fL 09/18/2024 7:41 AM EST [facility] MCH 28.3 27.0 - 34.0 pg 09/18/2024 7:41 AM EST [facility] MCHC 31.6 32.0 - 36.0 g/dL 09/18/2024 7:41 AM EST [facility] RDW 13.7 11.5 - 15.5 % 09/18/2024 7:41 AM EST [facility] PLT 169 140 - 400 K/uL 09/18/2024 7:41 AM EST [facility] MPV 10.3 6.6 - 11.1 fL 09/18/2024 7:41 AM EST [facility] nRBCs 0 <=0 /100 WBCs 09/18/2024 7:41 AM EST [facility] Blood Venous blood specimen / Unknown Venipuncture / Unknown 09/18/2024 7:17 AM EST 09/18/2024 7:32 AM EST us Catalino Valentino MD LAB BLOOD ORDERABLES Final Resul t LABORATORY [facility] [address] [place] [address] * (ABNORMAL) BASIC METABOLIC PANEL (09/18/2024 7:17 AM EST) BUN 9 6 - 20 mg/dL 09/18/2024 7:58 AM EST [facility] CREATININE 1.5(H) 0.6 - 1.2 mg/dL 09/18/2024 7:58 AM EST [facility] EGFR 43(L) >=60 mL/min 09/18/2024 7:58 AM EST [facility] Comment:eGFR is calculated b ased on the CKD-EPI 2020 equation. SODIUM 141 135 - 146 mmol/L 09/18/2024 7:58 AM EST [facility] POTASSIUM 3.7 3.5 - 5.1 mmol/L 09/18/2024 7:58 AM EST [facility] CHLORIDE 104 98 - 107 mmol/L 09/18/2024 7:58 AM EST [facility] CO2 26 22 - 32 mmol/L 09/18/2024 7:58 AM EST [facility] ANION GAP 11 7 - 15 mmol/L 09/18/2024 7:58 AM EST [facility] GLUCOSE 146(H) 70 - 120 mg/dL 09/18/2024 7:58 AM EST [facility] CALCIUM 8.5 8.4 - 10.2 mg/dL 09/18/2024 7:58 AM EST [facility] Blood Venous blood specimen / Unknown Venipuncture / Unknown 09/18/2024 7:17 AM EST 09/18/2024 7:32 AM EST us Michelle Kaur MD LAB BLOOD ORDERABLES Final Resul t LABORATORY [facility] [address] [place] [address] * (ABNORMAL) GLUCOSE METER, POINT OF CARE (09/17/2024 8:41 PM EST) Glucose - POCT 195(H) 70 - 120 mg/dL 09/17/2024 8:[address] [facility] Blood Whole blood specimen / Unknown 09/17/2024 8:41 PM EST 09/17/2024 8:44 PM EST Catalino Valentino MD LAB POINT OF CARE TE ST DOCKED DEVICE UNSOLICITED RESULTS Final Result [facility] [address] [place] [address] * (ABNORMAL) GLUCOSE METER, POINT OF CARE (09/17/2024 5:01 PM EST) Glucose - POCT 141(H) 70 - 120 mg/dL 09/17/2024 5:06 PM EST [facility] Blood Whole blood specimen / Unknown 09/17/2024 5:01 PM EST 09/17/2024 5:05 PM EST us Catalino Valentino MD LAB POINT OF CARE TE ST DOCKED DEVICE UNSOLICITED RESULTS Final Result [facility] [address] [place] [address] * GLUCOSE METER, POINT OF CARE (09/17/2024 11:31 AM EST) Glucose - POCT 115 70 - 120 mg/dL 09/17/2024 11:38 AM EST [facility] Blood Whole blood specimen / Unknown 09/17/2024 11:31 AM EST 09/17/2024 11:38 AM EST us Catalino Valentino MD LAB POINT OF CARE TE ST DOCKED DEVICE UNSOLICITED RESULTS Final Result Performing Organization Address City/[facility]/ZIP Co de Phone Number [facility] [address] [place] [address] * (ABNORMAL) GLUCOSE METER, POINT OF CARE (09/17/2024 7:51 AM EST) Glucose - POCT 200(H) 70 - 120 mg/dL 09/17/2024 8:00 AM EST [facility] Blood Whole blood specimen / Unknown 09/17/2024 7:51 AM EST 09/17/2024 8:00 AM EST us Catalino Valentino MD LAB POINT OF CARE TE ST DOCKED DEVICE UNSOLICITED RESULTS Final Result Performing Organization Address City/[facility]/ZIP Co de Phone Number [facility] [address] [place] [address] * (ABNORMAL) PHOSPHORUS (09/17/2024 7:18 AM EST) Phosphorus 2.0(L) 2.5 - 4.8 mg/dL 09/17/2024 7:54 AM EST LABORATORY [facility] Blood Venous blood specimen / Unknown Venipuncture / Unknown 09/17/2024 7:18 AM EST 09/17/2024 7:24 AM EST Alfreda Lyonbarber DAHL LAB BLOOD ORDERABLE S Final Result Performing Organization Address City/[facility]/ZIP Co de Phone Number LABORATORY [facility] [address] [place] [address] * MAGNESIUM (09/17/2024 7:18 AM EST) Magnesium 1.6 1.5 - 2.6 mg/dL 09/17/2024 7:54 AM EST LABORATORY [facility] Blood Venous blood specimen / Unknown Venipuncture / Unknown 09/17/2024 7:18 AM EST 09/17/2024 7:24 AM EST Alfreda DAHL LAB BLOOD ORDERABLE S Final Result Performing Organization Address [facility] de Phone Number LABORATORY [facility] [address] [place] [address] * DIGOXIN LEVEL (09/17/2024 7:18 AM EST) Digoxin Level 0.9 0.5 - 1.1 ng/mL 09/17/2024 7:54 AM EST LABORATORY [facility] Blood Venous blood specimen / Unknown Venipuncture / Unknown 09/17/2024 7:18 AM EST 09/17/2024 7:24 AM EST Narrative LABORATORY [facility] - 09/17/2024 7:54 AM EST Recommended trough therapeutic ranges: 0.5 to 0.8 for heart failure 0.5 to 1.1 for atrial fibrillation Catalino Valentino MD LAB BLOOD ORDERABLES Final Resul t Performing Organization Address City/[facility] Co de Phone Number LABORATORY [facility] [address] [place] [address] * (ABNORMAL) BASIC METABOLIC PANEL (09/17/2024 7:18 AM EST) BUN 13 6 - 20 mg/dL 09/17/2024 7:54 AM EST [facility] CREATININE 1.7(H) 0.6 - 1.2 mg/dL 09/17/2024 7:54 AM EST [facility] EGFR 39(L) >=60 mL/min 09/17/2024 7:54 AM EST [facility] Comment:eGFR is calculated b ased on the CKD-EPI 2020 equation. SODIUM 141 135 - 146 mmol/L 09/17/2024 7:54 AM EST [facility] POTASSIUM 3.4(L) 3.5 - 5.1 mmol/L 09/17/2024 7:54 AM EST [facility] CHLORIDE 103 98 - 107 mmol/L 09/17/2024 7:54 AM EST [facility] CO2 24 22 - 32 mmol/L 09/17/2024 7:54 AM EST [facility] ANION GAP 14 7 - 15 mmol/L 09/17/2024 7:54 AM EST LABORATORY C GLUCOSE 158(H) 70 - 120 mg/dL 09/17/2024 7:54 AM EST [facility] CALCIUM 8.5 8.4 - 10.2 mg/dL 09/17/2024 7:54 AM EST [facility] Blood Venous blood specimen / Unknown Venipuncture / Unknown 09/17/2024 7:18 AM EST 09/17/2024 7:24 AM EST us Michelle Natasha RIVERA LAB BLOOD ORDERABLES Final Resul t Performing Organization Address City/State/[facility] Co de Phone Number LABORATORY [facility] [address] [place] [address] * (ABNORMAL) GLUCOSE METER, POINT OF CARE (09/16/2024 10:27 PM EST) Glucose - POCT 162(H) 70 - 120 mg/dL 09/16/2024 10:32 PM EST [facility] Blood Whole blood specimen / Unknown 09/16/2024 10:27 PM EST 09/16/2024 10:32 PM EST us Catalino Valentino MD LAB POINT OF CARE TE ST DOCKED DEVICE UNSOLICITED RESULTS Final Result Performing Organization Address City/[facility]/ZIP Co de Phone Number [facility] [address] [place] [address] * (ABNORMAL) GLUCOSE METER, POINT OF CARE (09/16/2024 9:07 PM EST) Glucose - POCT 171(H) 70 - 120 mg/dL 09/16/2024 9:09 PM EST [facility] Blood Whole blood specimen / Unknown 09/16/2024 9:07 PM EST 09/16/2024 9:09 PM EST us Catalino Valentino MD LAB POINT OF CARE TE ST DOCKED DEVICE UNSOLICITED RESULTS Final Result Performing Organization Address [facility] Co de Phone Number [facility] [address] [place] [address] * (ABNORMAL) GLUCOSE METER, POINT OF CARE (09/16/2024 4:42 PM EST) Glucose - POCT 148(H) 70 - 120 mg/dL 09/16/2024 4:45 PM EST [facility] Blood Whole blood specimen / Unknown 09/16/2024 4:42 PM EST 09/16/2024 4:45 PM EST us Catalino Valentino MD LAB POINT OF CARE TE ST DOCKED DEVICE UNSOLICITED RESULTS Final Result Performing Organization Address City/[facility]/ZIP Co de Phone Number [facility] [address] [place] [address] * PHOSPHORUS (09/16/2024 8:01 AM EST) Phosphorus 3.4 2.5 - 4.8 mg/dL 09/16/2024 8:37 AM EST [facility] Blood Venous blood specimen / Unknown Venipuncture / Unknown 09/16/2024 8:01 AM EST 09/16/2024 8:11 AM EST Alfreda DAHL LAB BLOOD ORDERABLE S Final Result Performing Organization Address City/[facility]/ZIP Co de Phone Number [facility] [address] [place] [address] * MAGNESIUM (09/16/2024 8:01 AM EST) Magnesium 2.0 1.5 - 2.6 mg/dL 09/16/2024 8:37 AM EST [facility] Blood Venous blood specimen / Unknown Venipuncture / Unknown 09/16/2024 8:01 AM EST 09/16/2024 8:11 AM EST Alfreda DAHL LAB BLOOD ORDERABLE S Final Result Performing Organization Address [facility] de Phone Number [facility] [address] [place] [address] * (ABNORMAL) BASIC METABOLIC PANEL (09/16/2024 8:01 AM EST) BUN 15 6 - 20 mg/dL 09/16/2024 8:37 AM EST [facility] CREATININE 1.6(H) 0.6 - 1.2 mg/dL 09/16/2024 8:37 AM EST [facility] EGFR 41(L) >=60 mL/min 09/16/2024 8:37 AM EST [facility] Comment:eGFR is calculated b ased on the CKD-EPI 2020 equation. SODIUM 141 135 - 146 mmol/L 09/16/2024 8:37 AM EST [facility] POTASSIUM 3.8 3.5 - 5.1 mmol/L 09/16/2024 8:37 AM EST [facility] CHLORIDE 103 98 - 107 mmol/L 09/16/2024 8:37 AM EST [facility] CO2 25 22 - 32 mmol/L 09/16/2024 8:37 AM EST [facility] ANION GAP 13 7 - 15 mmol/L 09/16/2024 8:37 AM EST [facility] GLUCOSE 132(H) 70 - 120 mg/dL 09/16/2024 8:37 AM EST [facility] CALCIUM 8.5 8.4 - 10.2 mg/dL 09/16/2024 8:37 AM EST LABORATORY [facility] Blood Venous blood specimen / Unknown Venipuncture / Unknown 09/16/2024 8:01 AM EST 09/16/2024 8:11 AM EST us Michelle Kaur MD LAB BLOOD ORDERABLES Final Resul t Performing Organization Address City/[facility]/ZIP Co de Phone Number LABORATORY [facility] [address] [place] [address] * (ABNORMAL) GLUCOSE METER, POINT OF CARE (09/16/2024 7:41 AM EST) Glucose - POCT 122(H) 70 - 120 mg/dL 09/16/2024 7:50 AM EST [facility] Blood Whole blood specimen / Unknown 09/16/2024 7:41 AM EST 09/16/2024 7:50 AM EST us Catalino Valentino MD LAB POINT OF CARE TE ST DOCKED DEVICE UNSOLICITED RESULTS Final Result Performing Organization Address City/[facility]/ZIP Co de Phone Number [facility] [address] [place] [address] * (ABNORMAL) GLUCOSE METER, POINT OF CARE (09/15/2024 9:25 PM EST) Glucose - POCT 144(H) 70 - 120 mg/dL 09/15/2024 9:42 PM EST [employer] Blood Whole blood specimen / Unknown 09/15/2024 9:25 PM EST 09/15/2024 9:42 PM EST us Catalino Valentino MD LAB POINT OF CARE TE ST DOCKED DEVICE UNSOLICITED RESULTS Final Result Performing Organization Address City/[facility]/ZIP Co de Phone Number [facility] [address] [place] [address] * (ABNORMAL) GLUCOSE METER, POINT OF CARE (09/15/2024 4:51 PM EST) Glucose - POCT 146(H) 70 - 120 mg/dL 09/15/2024 5:13 PM EST [facility]il[facility] Blood Whole blood specimen / Unknown 09/15/2024 4:51 PM EST 09/15/2024 5:13 PM EST us Catalino Valentino MD LAB POINT OF CARE TE ST DOCKED DEVICE UNSOLICITED RESULTS Final Result Performing Organization Address City/[facility]/ZIP Co de Phone Number [facility] [address] [place] [address] * (ABNORMAL) GLUCOSE METER, POINT OF CARE (09/15/2024 11:25 AM EST) Glucose - POCT 168(H) 70 - 120 mg/dL 09/15/2024 11:41 AM EST [facility] [employer] Blood Whole blood specimen / Unknown 09/15/2024 11:25 AM EST 09/15/2024 11:41 AM EST us Catalino Valentino MD LAB POINT OF CARE TE ST DOCKED DEVICE UNSOLICITED RESULTS Final Result Performing Organization Address [facility] Co de Phone Number [facility] [address] [place] [address] * POTASSIUM, WHOLE BLOOD (09/15/2024 10:33 AM EST) Potassium 4.7 3.5 - 5.1 mmol/L 09/15/2024 10:43 AM EST [facility] [place] Blood Venous blood specimen / Unknown Venipuncture / Unknown 09/15/2024 10:33 AM EST 09/15/2024 10:39 AM EST us Catalino Valentino MD LAB BLOOD ORDERABLES Final Resul t Performing Organization Address City/[facility]/ZIP Co de Phone Number [facility] [address] [place] [address] * (ABNORMAL) GLUCOSE METER, POINT OF CARE (09/15/2024 7:32 AM EST) Glucose - POCT 123(H) 70 - 120 mg/dL 09/15/2024 7:58 AM EST [facility] Blood Whole blood specimen / Unknown 09/15/2024 7:32 AM EST 09/15/2024 7:57 AM EST us Catalino Valentino MD LAB POINT OF CARE TE ST DOCKED DEVICE UNSOLICITED RESULTS Final Result Performing Organization Address City/State/[facility] Co de Phone Number [facility] [address] [place] [address] * XR CHEST 1 VIEW (09/15/2024 7:19 AM EST) Anatomical Region Laterality Modality Chest Computed Radiogr aphy 09/15/2024 8:35 AM EST Impressions 09/15/2024 8:33 AM EST IMPRESSION Basilar predominant opacities marginally worsened from 09/11/2024. These may represent pleural effusions and passive atelectasis. Components of aspiration/mucous plugging/pneumonia not excluded. Narrative 09/15/2024 8:33 AM EST EXAM XR CHEST 1 VIEW - 09/15/2024 7:19 am HISTORY f/u pleural effusions TECHNIQUE A single frontal radiograph of the chest was obtained. COMPARISON Multiple recent chest radiographs. No prior chest CT available for review. FINDINGS FOREIGN BODIES, SUPPORT TUBES, LINES, DEVICES: Loop recorder in the left chest wall. LUNGS, PLEURA: Basilar opacities, which are most typical of passive atelectasis and probably pleural effusions are marginally worsened from 09/11/2024, noting the increased obscuration of the left and right hemidiaphragm. No pneumothorax. HEART, MEDIASTINUM: The heart is probably enlarged with chronic pulmonary vascular congestion. There is atherosclerotic calcification. Left coronary stents are faintly suggested. OTHER: None. Procedure Note Arnoldo Fernández MD - 09/15/2024 EXAM XR CHEST 1 VIEW - 09/15/2024 7:19 am HISTORY f/u pleural effusions TECHNIQUE A single frontal radiograph of the chest was obtained. COMPARISON Multiple recent chest radiographs. No prior chest CT available forreview. FINDINGS FOREIGN BODIES, SUPPORT TUBES, LINES, DEVICES: Loop recorder in the leftchest wall. LUNGS, PLEURA: Basilar opacities, which are most typical of passiveatelectasis and probably pleural effusions are marginally worsened from09/11/2024, noting the increased obscuration of the left and righthemidiaphragm. No pneumothorax. HEART, MEDIASTINUM: The heart is probably enlarged with chronic pulmonaryvascular congestion. There is atherosclerotic calcification. Leftcoronary stents are faintly suggested. OTHER: None. IMPRESSION IMPRESSION Basilar predominant opacities marginally worsened from 09/11/2024. Thesemay represent pleural effusions and passive atelectasis. Components ofaspiration/mucous plugging/pneumonia not excluded. Catalino Valentino MD RADIOLOGY ([facility]) Final Re sult * PHOSPHORUS (09/15/2024 6:45 AM EST) Phosphorus 3.8 2.5 - 4.8 mg/dL 09/15/2024 7:57 AM EST LABORATORY [facility] Blood Venous blood specimen / Unknown Venipuncture / Unknown 09/15/2024 6:45 AM EST 09/15/2024 7:23 AM EST Alfreda DAHL LAB BLOOD ORDERABLE S Final Result LABORATORY [address] [address] * MAGNESIUM (09/15/2024 6:45 AM EST) Magnesium 2.4 1.5 - 2.6 mg/dL 09/15/2024 7:57 AM EST LABORATORY [facility] Blood Venous blood specimen / Unknown Venipuncture / Unknown 09/15/2024 6:45 AM EST 09/15/2024 7:23 AM EST Alfreda Lissetangie DAHL LAB BLOOD ORDERABLE S Final Result LABORATORY [facility] [address] [place] [address] * (ABNORMAL) BASIC METABOLIC PANEL (09/15/2024 6:45 AM EST) BUN 15 6 - 20 mg/dL 09/15/2024 7:57 AM EST [facility] CREATININE 1.5(H) 0.6 - 1.2 mg/dL 09/15/2024 7:57 AM EST [facility] EGFR 43(L) >=60 mL/min 09/15/2024 7:57 AM EST [facility] Comment:eGFR is calculated b ased on the CKD-EPI 2020 equation. SODIUM 141 135 - 146 mmol/L 09/15/2024 7:57 AM EST [facility] POTASSIUM 09/15/2024 7:57 AM EST [facility] Comment:Specimen too hemolyz ed. Reorder if needed. CHLORIDE 106 98 - 107 mmol/L 09/15/2024 7:57 AM EST [facility] CO2 22 22 - 32 mmol/L 09/15/2024 7:57 AM EST [facility] ANION GAP 13 7 - 15 mmol/L 09/15/2024 7:57 AM EST [facility] GLUCOSE 110 70 - 120 mg/dL 09/15/2024 7:57 AM EST [facility] CALCIUM 9.0 8.4 - 10.2 mg/dL 09/15/2024 7:57 AM EST [facility] Blood Venous blood specimen / Unknown Venipuncture / Unknown 09/15/2024 6:45 AM EST 09/15/2024 7:23 AM EST us Michelle Kaur MD LAB BLOOD ORDERABLES Final Resul t LABORATORY [facility] [address] [place] [address] * (ABNORMAL) GLUCOSE METER, POINT OF CARE (09/14/2024 8:53 PM EST) Glucose - POCT 146(H) 70 - 120 mg/dL 09/14/2024 8:56 PM EST [facility] Blood Whole blood specimen / Unknown 09/14/2024 8:53 PM EST 09/14/2024 8:56 PM EST Catalino Valentino MD LAB POINT OF CARE TE ST DOCKED DEVICE UNSOLICITED RESULTS Final Result Performing Organization Address City/[facility]/ZIP Co de Phone Number [facility] [address] [place] [address] * (ABNORMAL) GLUCOSE METER, POINT OF CARE (09/14/2024 6:03 PM EST) Glucose - POCT 160(H) 70 - 120 mg/dL 09/14/2024 6:[address] [facility] Blood Whole blood specimen / Unknown 09/14/2024 6:03 PM EST 09/14/2024 6:05 PM EST Catalino Valentino MD LAB POINT OF CARE TE ST DOCKED DEVICE UNSOLICITED RESULTS Final Result Performing Organization Address [facility]/ZIP Co de Phone Number [facility] [address] [place] [address] * MAGNESIUM (09/14/2024 5:43 PM EST) Pathologist [facility] Magnesium 1.7 1.5 - 2.6 mg/dL 09/14/2024 7:28 PM EST LABORATORY [facility] Blood Venous blood specimen / Unknown Venipuncture / Unknown 09/14/2024 5:43 PM EST 09/14/2024 5:48 PM EST Nancy Plummer PA-C LAB BLOOD ORDERABLES Final Resu lt Performing Organization Address City/[facility]/ZIP Co de Phone Number [facility] [address] [place] [address] * (ABNORMAL) BASIC METABOLIC PANEL (09/14/2024 5:43 PM EST) BUN 14 6 - 20 mg/dL 09/14/2024 6:18 PM EST [facility] CREATININE 1.6(H) 0.6 - 1.2 mg/dL 09/14/2024 6:18 PM EST [facility] EGFR 41(L) >=60 mL/min 09/14/2024 6:18 PM EST [facility] Comment:eGFR is calculated b ased on the CKD-EPI 2020 equation. SODIUM 139 135 - 146 mmol/L 09/14/2024 6:18 PM EST [facility] POTASSIUM 3.7 3.5 - 5.1 mmol/L 09/14/2024 6:18 PM EST [facility] CHLORIDE 104 98 - 107 mmol/L 09/14/2024 6:18 PM EST [facility] CO2 21(L) 22 - 32 mmol/L 09/14/2024 6:18 PM EST [facility] ANION GAP 14 7 - 15 mmol/L 09/14/2024 6:18 PM EST [facility] GLUCOSE 166(H) 70 - 120 mg/dL 09/14/2024 6:18 PM EST [facility] CALCIUM 8.8 8.4 - 10.2 mg/dL 09/14/2024 6:18 PM EST [facility] Blood Venous blood specimen / Unknown Venipuncture / Unknown 09/14/2024 5:43 PM EST 09/14/2024 5:48 PM EST us Catalino Valentino MD LAB BLOOD ORDERABLES Final Resul t [facility] [address] [place] [address] * (ABNORMAL) GLUCOSE METER, POINT OF CARE (09/14/2024 11:38 AM EST) Pathologist [facility] Glucose - POCT 169(H) 70 - 120 mg/dL 09/14/2024 11:[address] [facility] Blood Whole blood specimen / Unknown 09/14/2024 11:38 AM EST 09/14/2024 11:49 AM EST us Catalino Valentino MD LAB POINT OF CARE TE ST DOCKED DEVICE UNSOLICITED RESULTS Final Result [facility] [address] [place] [address] * (ABNORMAL) CBC (09/14/2024 8:08 AM EST) WBC 7.84 4.00 - 10.80 K/uL 09/14/2024 8:55 AM EST [facility] RBC 3.87 4.50 - 5.25 M/uL 09/14/2024 8:55 AM EST [facility] HGB 11.1(L) 14.0 - 16.8 g/dL 09/14/2024 8:55 AM EST [facility] HCT 34.9(L) 40.0 - 48.4 % 09/14/2024 8:55 AM EST [facility] MCV 90.2 82.0 - 99.5 fL 09/14/2024 8:55 AM EST [facility] MCH 28.7 27.0 - 34.0 pg 09/14/2024 8:55 AM EST [facility] MCHC 31.8 32.0 - 36.0 g/dL 09/14/2024 8:55 AM EST [facility] RDW 13.7 11.5 - 15.5 % 09/14/2024 8:55 AM EST [facility] PLT 183 140 - 400 K/uL 09/14/2024 8:55 AM EST [facility] MPV 10.3 6.6 - 11.1 fL 09/14/2024 8:55 AM EST [facility] nRBCs 0 <=0 /100 WBCs 09/14/2024 8:55 AM EST [facility] Blood Venous blood specimen / Unknown Venipuncture / Unknown 09/14/2024 8:08 AM EST 09/14/2024 8:48 AM EST us Catalino Valentino MD LAB BLOOD ORDERABLES Final Resul t LABORATORY [facility] [address] [place] [address] * (ABNORMAL) GLUCOSE METER, POINT OF CARE (09/14/2024 7:29 AM EST) [facility] Glucose - POCT 122(H) 70 - 120 mg/dL 09/14/2024 7:35 AM EST [facility] Blood Whole blood specimen / Unknown 09/14/2024 7:29 AM EST 09/14/2024 7:35 AM EST us Catalino Valentino MD LAB POINT OF CARE TE ST DOCKED DEVICE UNSOLICITED RESULTS Final Result Performing Organization Address City/[facility]/ZIP Co de Phone Number [facility] [address] [place] [address] * PHOSPHORUS (09/14/2024 6:44 AM EST) Phosphorus 3.2 2.5 - 4.8 mg/dL 09/14/2024 7:38 AM EST LABORATORY [facility] Blood Venous blood specimen / Unknown Venipuncture / Unknown 09/14/2024 6:44 AM EST 09/14/2024 6:55 AM EST Alfreda Kaurangie DAHL LAB BLOOD ORDERABLE S Final Result Performing Organization Address [facility] Co de Phone Number LABORATORY [facility] [address] [place] [address] * MAGNESIUM (09/14/2024 6:44 AM EST) Pathologist [facility] Magnesium 1.7 1.5 - 2.6 mg/dL 09/14/2024 7:38 AM EST LABORATORY [facility] Blood Venous blood specimen / Unknown Venipuncture / Unknown 09/14/2024 6:44 AM EST 09/14/2024 6:55 AM EST Alfreda Kaurangie DAHL LAB BLOOD ORDERABLE S Final Result Performing Organization Address [facility] Co de Phone Number LABORATORY [facility] [address] [place] [address] * (ABNORMAL) BASIC METABOLIC PANEL (09/14/2024 6:44 AM EST) BUN 13 6 - 20 mg/dL 09/14/2024 7:38 AM EST LABORATORY [facility] CREATININE 1.5(H) 0.6 - 1.2 mg/dL 09/14/2024 7:38 AM EST LABORATORY [facility] EGFR 45(L) >=60 mL/min 09/14/2024 7:38 AM EST LABORATORY [facility] Comment:eGFR is calculated b ased on the CKD-EPI 2020 equation. SODIUM 140 135 - 146 mmol/L 09/14/2024 7:38 AM EST [facility] POTASSIUM 2.8(L) 3.5 - 5.1 mmol/L 09/14/2024 7:38 AM EST [facility] CHLORIDE 102 98 - 107 mmol/L 09/14/2024 7:38 AM EST [facility] CO2 21(L) 22 - 32 mmol/L 09/14/2024 7:38 AM EST [facility] ANION GAP 17(H) 7 - 15 mmol/L 09/14/2024 7:38 AM EST [facility] GLUCOSE 121(H) 70 - 120 mg/dL 09/14/2024 7:38 AM EST [facility] CALCIUM 8.7 8.4 - 10.2 mg/dL 09/14/2024 7:38 AM EST [facility] Blood Venous blood specimen / Unknown Venipuncture / Unknown 09/14/2024 6:44 AM EST 09/14/2024 6:55 AM EST Michelle Kaur MD LAB BLOOD ORDERABLES Final Resul t LABORATORY [facility] [address] [place] [address] * (ABNORMAL) GLUCOSE METER, POINT OF CARE (09/13/2024 9:05 PM EST) Glucose - POCT 159(H) 70 - 120 mg/dL 09/13/2024 9:[address] [facility] Blood Whole blood specimen / Unknown 09/13/2024 9:05 PM EST 09/13/2024 9:56 PM EST Michelle Kaur MD LAB POINT OF CARE TE ST DOCKED DEVICE UNSOLICITED RESULTS Final Result [facility] [address] [place] [address] * GLUCOSE METER, POINT OF CARE (09/13/2024 4:28 PM EST) Glucose - POCT 101 70 - 120 mg/dL 09/13/2024 4:38 PM EST [facility] Blood Whole blood specimen / Unknown 09/13/2024 4:28 PM EST 09/13/2024 4:38 PM EST us Michelle Kaur MD LAB POINT OF CARE TE ST DOCKED DEVICE UNSOLICITED RESULTS Final Result Performing Organization Address City/[facility]/ZIP Co de Phone Number [facility] [address] [place] [address] * (ABNORMAL) GLUCOSE METER, POINT OF CARE (09/13/2024 11:48 AM EST) Glucose - POCT 196(H) 70 - 120 mg/dL 09/13/2024 12:07 PM EST [facility] Blood Whole blood specimen / Unknown 09/13/2024 11:48 AM EST 09/13/2024 12:07 PM EST us Michelle Kaur MD LAB POINT OF CARE TE ST DOCKED DEVICE UNSOLICITED RESULTS Final Result Performing Organization Address City/[facility]/ZIP Co de Phone Number [facility] [address] [place] [address] * GLUCOSE METER, POINT OF CARE (09/13/2024 7:43 AM EST) Glucose - POCT 107 70 - 120 mg/dL 09/13/2024 7:58 AM EST [facility] Blood Whole blood specimen / Unknown 09/13/2024 7:43 AM EST 09/13/2024 7:58 AM EST us Michelle Kaur MD LAB POINT OF CARE TE ST DOCKED DEVICE UNSOLICITED RESULTS Final Result Performing Organization Address City/[facility]/ZIP Co de Phone Number [facility] [address] [place] [address] * (ABNORMAL) BASIC METABOLIC PANEL (09/13/2024 5:58 AM EST) BUN 13 6 - 20 mg/dL 09/13/2024 7:29 AM EST [facility] CREATININE 1.4(H) 0.6 - 1.2 mg/dL 09/13/2024 7:29 AM EST [facility] EGFR 49(L) >=60 mL/min 09/13/2024 7:29 AM EST [facility] Comment:eGFR is calculated b ased on the CKD-EPI 2020 equation. SODIUM 139 135 - 146 mmol/L 09/13/2024 7:29 AM EST [facility] POTASSIUM 09/13/2024 7:29 AM EST [facility] Comment:Specimen too hemolyz ed. Reorder if needed. CHLORIDE 105 98 - 107 mmol/L 09/13/2024 7:29 AM EST [facility] CO2 18(L) 22 - 32 mmol/L 09/13/2024 7:29 AM EST [facility] ANION GAP 16(H) 7 - 15 mmol/L 09/13/2024 7:29 AM EST [facility] GLUCOSE 120 70 - 120 mg/dL 09/13/2024 7:29 AM EST [facility] CALCIUM 8.2(L) 8.4 - 10.2 mg/dL 09/13/2024 7:29 AM EST [facility] Blood Venous blood specimen / Unknown Venipuncture / Unknown 09/13/2024 5:58 AM EST 09/13/2024 6:06 AM EST Michelle Kaur MD LAB BLOOD ORDERABLES Final Resul t Performing Organization Address City/[facility]/ZIP Co de Phone Number LABORATORY [facility] [address] [place] [address] * PHOSPHORUS (09/13/2024 5:58 AM EST) Phosphorus 4.2 2.5 - 4.8 mg/dL 09/13/2024 6:38 AM EST LAB[facility]ATORY [facility] Blood Venous blood specimen / Unknown Venipuncture / Unknown 09/13/2024 5:58 AM EST 09/13/2024 6:06 AM EST Alfreda DAHL LAB BLOOD ORDERABLE S Final Result LABORATORY [facility] [address] [place] [address] * MAGNESIUM (09/13/2024 5:58 AM EST) Magnesium 1.9 1.5 - 2.6 mg/dL 09/13/2024 6:38 AM EST LABORATORY [facility] Blood Venous blood specimen / Unknown Venipuncture / Unknown 09/13/2024 5:58 AM EST 09/13/2024 6:06 AM EST Alfreda DAHL LAB BLOOD ORDERABLE S Final Result LABORATORY [facility] [address] [place] [address] * (ABNORMAL) GLUCOSE METER, POINT OF CARE (09/12/2024 8:48 PM EST) Glucose - POCT 131(H) 70 - 120 mg/dL 09/12/2024 9:01 PM EST [facility] Blood Whole blood specimen / Unknown 09/12/2024 8:48 PM EST 09/12/2024 9:01 PM EST Michelle Kaur MD LAB POINT OF CARE TE ST DOCKED DEVICE UNSOLICITED RESULTS Final Result [facility] [address] [place] [address] * (ABNORMAL) GLUCOSE METER, POINT OF CARE (09/12/2024 4:33 PM EST) Glucose - POCT 234(H) 70 - 120 mg/dL 09/12/2024 4:55 PM EST [facility] Blood Whole blood specimen / Unknown 09/12/2024 4:33 PM EST 09/12/2024 4:55 PM EST Michelle Kaur MD LAB POINT OF CARE TE ST DOCKED DEVICE UNSOLICITED RESULTS Final Result [facility] [address] [place] [address] * (ABNORMAL) IRON SCREEN, INCLUDING TIBC (09/12/2024 4:24 PM EST) Iron 43(L) 45 - 176 ug/dL 09/12/2024 5:36 PM EST [facility] Iron Binding Capacity 190(L) 250 - 425 ug/dL 09/12/2024 5:36 PM EST [facility] Transferrin Saturation Percent 23 15 - 55 % 09/12/2024 5:36 PM EST LABORATORY [facility] Blood Venous blood specimen / Unknown Venipuncture / Unknown 09/12/2024 4:24 PM EST 09/12/2024 4:39 PM EST us Michelle Kaur MD LAB BLOOD ORDERABLES Final Resul t LABORATORY [facility] [address] [place] [address] * (ABNORMAL) GLUCOSE METER, POINT OF CARE (09/12/2024 12:51 PM EST) Glucose - POCT 144(H) 70 - 120 mg/dL 09/12/2024 12:56 PM EST [facility] [employer] Blood Whole blood specimen / Unknown 09/12/2024 12:51 PM EST 09/12/2024 12:56 PM EST us Michelle Kaur MD LAB POINT OF CARE TE ST DOCKED DEVICE UNSOLICITED RESULTS Final Result [facility] [address] [place] [address] * (ABNORMAL) GLUCOSE METER, POINT OF CARE (09/12/2024 10:23 AM EST) Glucose - POCT 156(H) 70 - 120 mg/dL 09/12/2024 10:28 AM EST [facility]URORASil[facility] Blood Whole blood specimen / Unknown 09/12/2024 10:23 AM EST 09/12/2024 10:28 AM EST us Michelle Natasha RIVERA LAB POINT OF CARE TE ST DOCKED DEVICE UNSOLICITED RESULTS Final Result [facility] [address] [place] [address] * CT HEAD/BRAIN WO CONTRAST (09/12/2024 10:07 AM EST) Anatomical Region Laterality Modality Head Computed Tomogra phy 09/12/2024 10:4 4 AM EST Impressions 09/12/2024 10:42 AM EST IMPRESSION: 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 The hematoma in the left temporal lobe has not significantly changed in size and there is no evidence of new intracranial hemorrhage. Similar edema and mild mass effect without midline shift or herniation. Other scattered subacute ischemic infarcts are better demonstrated on prior MR brain. 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 Narrative 09/12/2024 10:42 AM EST EXAM: CT HEAD/BRAIN WO CONTRAST-09/12/2024 HISTORY: 89 y/o M, follow-up IPH prior to starting AP TECHNIQUE: CT scan of the head performed without intravenous contrast. COMPARISON: CT head and MR brain 09/06/2024. 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 Other scattered small infarcts of similar age (including at the right frontal operculum) better demonstrated on prior MR brain 09/06/2024. Acute intraparenchymal hematoma in the left temporal lobe is unchanged in size and configuration, measuring 2.8 x 4.3 x 3.2 cm. Similar surrounding edema and mild mass effect with effacement of sulci, partial effacement of the left sylvian fissure, and effacement of the left lateral ventricle. No substantial midline shift and no herniation. Encephalomalacia in the right more than left occipital lobes and right cerebellar hemisphere, compatible with chronic infarcts. Mild patchy hypoattenuation in the periventricular white matter, most suggestive of chronic microvascular ischemic changes. Global cerebral volume loss. No discernible extra-axial fluid collections. No hydrocephalus. Basal cisterns are patent. Vascular calcification at the skull base. Bilateral lens replacements. Scattered mild mucosal thickening in the paranasal sinuses with fluid in the left frontal sinus. Mastoid air cells are well aerated. The calvarium is intact. Procedure Note Patrick Weiner MD - 09/12/2024 EXAM: CT HEAD/BRAIN WO CONTRAST-09/12/2024 HISTORY: 89 y/o M, follow-up IPH prior to starting AP TECHNIQUE: CT scan of the head performed without intravenous contrast. COMPARISON: CT head and MR brain 09/06/2024. FINDINGS: Early subacute infarct in the left MCA vascular territory with hemorrhagictransformation. Other scattered small infarcts of similar age (includingat the right frontal operculum) better demonstrated on prior MR brain09/06/2024. Acute intraparenchymal hematoma in the left temporal lobe isunchanged in size and configuration, measuring 2.8 x 4.3 x 3.2 cm.Similar surrounding edema and mild mass effect with effacement of sulci,partial effacement of the left sylvian fissure, and effacement of the leftlateral ventricle. No substantial midline shift and no herniation. Encephalomalacia in the right more than left occipital lobes and rightcerebellar hemisphere, compatible with chronic infarcts. Mild patchyhypoattenuation in the periventricular white matter, most suggestive ofchronic microvascular ischemic changes. Global cerebral volume loss. No discernible extra-axial fluid collections. No hydrocephalus. Basalcisterns are patent. Vascular calcification at the skull base. Bilateral lens replacements. Scattered mild mucosal thickening in theparanasal sinuses with fluid in the left frontal sinus. Mastoid air cellsare well aerated. The calvarium is intact. IMPRESSION IMPRESSION: Early subacute infarct in the left MCA vascular territory with hemorrhagictransformation. The hematoma in the left temporal lobe has notsignificantly changed in size and there is no evidence of new intracranialhemorrhage. Similar edema and mild mass effect without midline shift orherniation. Other scattered subacute ischemic infarcts are better demonstrated onprior MR brain. 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 Alfreda DAHL RAD CT Fin al Result * (ABNORMAL) GLUCOSE METER, POINT OF CARE (09/12/2024 8:08 AM EST) Glucose - POCT 148(H) 70 - 120 mg/dL 09/12/2024 8:[address] [facility] Blood Whole blood specimen / Unknown 09/12/2024 8:08 AM EST 09/12/2024 8:41 AM EST us Michelle Kaur MD LAB POINT OF CARE TE ST DOCKED DEVICE UNSOLICITED RESULTS Final Result Performing Organization Address City/[facility]/ZIP Co de Phone Number [facility] [address] [place] [address] * VITAMIN B12 (09/12/2024 7:21 AM EST) Vitamin B12 832 232 - 1,245 pg/mL 09/12/2024 2:00 PM EST LABORATORY [facility] Blood Venous blood specimen / Unknown Venipuncture / Unknown 09/12/2024 7:21 AM EST 09/12/2024 7:41 AM EST Michelle Kaur MD LAB BLOOD ORDERABLES Final Resul t Performing Organization Address [facility] Co de Phone Number LABORATORY [facility] [address] [place] [address] * FOLIC ACID (09/12/2024 7:21 AM EST) Pathologist [facility] Folic Acid 7.2 >4.5 ng/mL 09/12/2024 2:00 PM EST LABORATORY [facility] Comment:Results may be false ly elevated due to hemolysis. Blood Venous blood specimen / Unknown Venipuncture / Unknown 09/12/2024 7:21 AM EST 09/12/2024 7:41 AM EST Michelle Kaur MD LAB BLOOD ORDERABLES Final Resul t Performing Organization Address City/[facility] Co de Phone Number LABORATORY [facility] [address] [place] [address] * FERRITIN (09/12/2024 7:21 AM EST) Pathologist [facility] Ferritin 259 30 - 400 ng/mL 09/12/2024 2:00 PM EST [facility] Blood Venous blood specimen / Unknown Venipuncture / Unknown 09/12/2024 7:21 AM EST 09/12/2024 7:41 AM EST Michelle Kaur MD LAB BLOOD ORDERABLES Final Resul t Performing Organization Address City/[facility] Co de Phone Number LABORATORY [facility] [address] [place] [address] * PHOSPHORUS (09/12/2024 7:21 AM EST) Phosphorus 3.8 2.5 - 4.8 mg/dL 09/12/2024 8:08 AM EST LABORATORY C Blood Venous blood specimen / Unknown Venipuncture / Unknown 09/12/2024 7:21 AM EST 09/12/2024 7:41 AM EST Alfreda DAHL LAB BLOOD ORDERABLE S Final Result Performing Organization Address [facility] de Phone Number LABORATORY [facility] [address] [place] [address] * MAGNESIUM (09/12/2024 7:21 AM EST) Magnesium 2.1 1.5 - 2.6 mg/dL 09/12/2024 8:08 AM EST LABORATORY [facility] Blood Venous blood specimen / Unknown Venipuncture / Unknown 09/12/2024 7:21 AM EST 09/12/2024 7:41 AM EST Alfreda DAHL LAB BLOOD ORDERABLE S Final Result Performing Organization Address City/[facility] de Phone Number LABORATORY [facility] [address] [place] [address] * (ABNORMAL) BASIC METABOLIC PANEL (09/12/2024 7:21 AM EST) BUN 15 6 - 20 mg/dL 09/12/2024 8:08 AM EST LABORATORY [facility] CREATININE 1.4(H) 0.6 - 1.2 mg/dL 09/12/2024 8:08 AM EST LAB[facility]ATORY [facility] EGFR 47(L) >=60 mL/min 09/12/2024 8:08 AM EST LAB[facility]ATORY [facility] Comment:eGFR is calculated b ased on the CKD-EPI 2020 equation. SODIUM 140 135 - 146 mmol/L 09/12/2024 8:08 AM EST LAB[facility]ATORY [facility] POTASSIUM 3.9 3.5 - 5.1 mmol/L 09/12/2024 8:08 AM EST LABORATORY [facility] Comment:Results may be false ly elevated due to hemolysis. CHLORIDE 106 98 - 107 mmol/L 09/12/2024 8:08 AM EST LAB[facility]ATORY [facility] CO2 19(L) 22 - 32 mmol/L 09/12/2024 8:08 AM EST LAB[facility]ORY [facility] ANION GAP 15 7 - 15 mmol/L 09/12/2024 8:08 AM EST LAB[facility]ORY [facility] GLUCOSE 156(H) 70 - 120 mg/dL 09/12/2024 8:08 AM EST LAB[facility]ATORY [facility] CALCIUM 8.4 8.4 - 10.2 mg/dL 09/12/2024 8:08 AM EST LAB[facility]ATORY [facility] Blood Venous blood specimen / Unknown Venipuncture / Unknown 09/12/2024 7:21 AM EST 09/12/2024 7:41 AM EST Alfreda INGRAMNP LAB BLOOD ORDERABLE S Final Result LAB[facility]ATORY [facility] [address] [place] [address] * (ABNORMAL) CBC (09/12/2024 7:21 AM EST) WBC 8.02 4.00 - 10.80 K/uL 09/12/2024 7:49 AM EST LAB[facility]ATORY [facility] RBC 3.78 4.50 - 5.25 M/uL 09/12/2024 7:49 AM EST LAB[facility]ATORY [facility] HGB 10.7(L) 14.0 - 16.8 g/dL 09/12/2024 7:49 AM EST LAB[facility]ORY [facility] HCT 33.5(L) 40.0 - 48.4 % 09/12/2024 7:49 AM EST LAB[facility]ATORY [facility] MCV 88.6 82.0 - 99.5 fL 09/12/2024 7:49 AM EST LAB[facility]ATORY [facility] MCH 28.3 27.0 - 34.0 pg 09/12/2024 7:49 AM EST LAB[facility]ATORY [facility] MCHC 31.9 32.0 - 36.0 g/dL 09/12/2024 7:49 AM EST LAB[facility]ORY [facility] RDW 13.7 11.5 - 15.5 % 09/12/2024 7:49 AM EST LAB[facility]ATORY [facility] PLT 190 140 - 400 K/uL 09/12/2024 7:49 AM EST LAB[facility]ATORY [facility] MPV 10.3 6.6 - 11.1 fL 09/12/2024 7:49 AM EST LAB[facility]ATORY [facility] nRBCs 0 <=0 /100 WBCs 09/12/2024 7:49 AM EST LAB[facility]ORY [facility] Blood Venous blood specimen / Unknown Venipuncture / Unknown 09/12/2024 7:21 AM EST 09/12/2024 7:41 AM EST us Alfreda DAHL LAB BLOOD ORDERABLE S Final Result LABORATORY [facility] [address] [place] [address] * (ABNORMAL) GLUCOSE METER, POINT OF CARE (09/11/2024 11:36 PM EST) [facility] Glucose - POCT 209(H) 70 - 120 mg/dL 09/12/2024 12:49 AM EST [facility] Blood Whole blood specimen / Unknown 09/11/2024 11:36 PM EST 09/12/2024 12:49 AM EST Harper Recinos MD LAB POINT OF CARE TE ST DOCKED DEVICE UNSOLICITED RESULTS Final Result [facility] [address] [place] [address] * XR CHEST 1 VIEW (09/11/2024 11:12 PM EST) Anatomical Region Laterality Modality Chest Computed Radiogr aphy 09/12/2024 12:1 0 AM EST Impressions 09/12/2024 12:07 AM EST IMPRESSION 1. No significant interval change. Narrative 09/12/2024 12:07 AM EST EXAM XR CHEST 1 VIEW-09/11/2024 11:12 pm HISTORY SOB and increase O2 supply COMPARISON XR CHEST 1 VIEW, ACC: [id number], dated 2024-09-10 03:37:51; XR CHEST 1 VIEW, ACC: [id number], dated 2024-09-08 11:36:42 TECHNIQUE Frontal chest radiograph obtained. FINDINGS Stable cardiomediastinal. A loop recorder projected over the left chest. Stable pulmonary opacities. Pleural effusions and basilar atelectasis. No pneumothorax. Degenerative osseous changes. Procedure Note Tushar Cornejo MD - 09/12/2024 EXAM XR CHEST 1 VIEW-09/11/2024 11:12 pm HISTORY SOB and increase O2 supply COMPARISON XR CHEST 1 VIEW, ACC: [id number], dated 2024-09-10 03:37:51; XR CHEST 1 VIEW, ACC: [id number], dated 2024-09-08 11:36:42 TECHNIQUE Frontal chest radiograph obtained. FINDINGS Stable cardiomediastinal. A loop recorder projected over the leftchest. Stable pulmonary opacities. Pleural effusions and basilar atelectasis. No pneumothorax. Degenerative osseous changes. IMPRESSION IMPRESSION 1. No significant interval change. [facility] Joshua Tao MD RADIOLOGY (RAD GENERAL) Final Result * (ABNORMAL) BLOOD GAS, ARTERIAL (09/11/2024 10:41 PM EST) Temperature 37.0 C 09/11/2024 10:50 PM EST LAB[facility]ATORY [facility] pH, Arterial 7.350 7.350 - 7.450 units 09/11/2024 10:50 PM EST LAB[facility]ATORY [facility] pCO2, Arterial 34.7(L) 35.0 - 45.0 mmHg 09/11/2024 10:50 PM EST LAB[facility]ATORY [facility] pO2, Arterial 63.4(L) 75.0 - 100.0 mmHg 09/11/2024 10:50 PM EST LAB[facility]ATORY [facility] Base Excess, Arterial -5.7(L) -2.0 - 2.0 mmol/L 09/11/2024 10:50 PM EST LAB[facility]ATORY [facility] HGB 11.9(L) 14.0 - 16.8 g/dL 09/11/2024 10:50 PM EST LAB[facility]ATORY [facility] Oxyhemoglobin, Arterial 89.0(L) 94.0 - 99.0 % total Hgb 09/11/2024 10:50 PM EST LAB[facility]ATORY [facility] Carboxyhemoglob in, Whole Blood 1.3 <=1.5 % total Hgb 09/11/2024 10:50 PM EST LAB[facility]ATORY [facility] Comment:Smokers: 0-9.0 % Methemoglobin, Whole Blood 0.3 <=1.5 % total Hgb 09/11/2024 10:50 PM EST LAB[facility]ATORY [facility] Reduced Hemoglobin, Arterial 9.4(H) 0.0 - 5.0 % total Hgb 09/11/2024 10:50 PM EST LAB[facility]ATORY [facility] O2 Content, Arterial 14.9(L) 15.0 - 24.0 %vol 09/11/2024 10:50 PM EST LAB[facility]ATORY [facility] FiO2 Not Provided % 09/11/2024 10:50 PM EST LAB[facility]ATORY [facility] O2 Flow, Arterial Not Provided L/min 09/11/2024 10:50 PM EST LAB[facility]ORY [facility] Bicarbonate, Whole Blood 18.7(L) 23.0 - 31.0 mmol/L 09/11/2024 10:50 PM EST LAB[facility]ATORY [facility] Blood Arterial blood specimen / Unknown Arterial Puncture / Unknown 09/11/2024 10:41 PM EST 09/11/2024 10:47 PM EST us Lamees Joshua Tao MD LAB BLOOD ORDERABLES Fi nal Result LABORATORY [facility] [address] [place] [address] * (ABNORMAL) GLUCOSE METER, POINT OF CARE (09/11/2024 8:57 PM EST) [facility] Glucose - POCT 159(H) 70 - 120 mg/dL 09/11/2024 9:10 PM EST [facility] Blood Whole blood specimen / Unknown 09/11/2024 8:57 PM EST 09/11/2024 9:10 PM EST us Sagar Ohara MD LAB POINT OF CARE TEST DOCKED DEVICE UNSOLICITED RESULTS Final Result Performing Organization Address [facility]/ZIP Co de Phone Number [facility] [address] [place] [address] * (ABNORMAL) GLUCOSE METER, POINT OF CARE (09/11/2024 4:59 PM EST) Glucose - POCT 140(H) 70 - 120 mg/dL 09/11/2024 5:16 PM EST [facility] Blood Whole blood specimen / Unknown 09/11/2024 4:59 PM EST 09/11/2024 5:15 PM EST us Sagar Ohara MD LAB POINT OF CARE TEST DOCKED DEVICE UNSOLICITED RESULTS Final Result Performing Organization Address [facility] Co de Phone Number [facility] [address] [place] [address] * (ABNORMAL) GLUCOSE METER, POINT OF CARE (09/11/2024 11:30 AM EST) Glucose - POCT 161(H) 70 - 120 mg/dL 09/11/2024 11:38 AM EST [facility] Blood Whole blood specimen / Unknown 09/11/2024 11:30 AM EST 09/11/2024 11:38 AM EST Scott Frankel MD LAB POINT OF CARE TEST DOCKED DEVICE UNSOLICITED RESULTS Final Result Performing Organization Address [facility] Co de Phone Number [facility] [address] [place] [address] * (ABNORMAL) CBC (09/11/2024 8:04 AM EST) WBC 7.87 4.00 - 10.80 K/uL 09/11/2024 8:31 AM EST LAB[facility]ATORY [facility] RBC 3.78 4.50 - 5.25 M/uL 09/11/2024 8:31 AM EST LAB[facility]ATORY [facility] HGB 10.8(L) 14.0 - 16.8 g/dL 09/11/2024 8:31 AM EST LAB[facility]ORY [facility] HCT 32.7(L) 40.0 - 48.4 % 09/11/2024 8:31 AM EST LAB[facility]ORY [facility] MCV 86.5 82.0 - 99.5 fL 09/11/2024 8:31 AM EST LAB[facility]ORY [facility] MCH 28.6 27.0 - 34.0 pg 09/11/2024 8:31 AM EST LAB[facility] MCHC 33.0 32.0 - 36.0 g/dL 09/11/2024 8:31 AM EST LAB[facility]ATORY [facility] RDW 13.6 11.5 - 15.5 % 09/11/2024 8:31 AM EST LAB[facility]ATORY [facility] PLT 186 140 - 400 K/uL 09/11/2024 8:31 AM EST LAB[facility]ORY [facility] MPV 10.6 6.6 - 11.1 fL 09/11/2024 8:31 AM EST LAB[facility]ATORY [facility] nRBCs 0 <=0 /100 WBCs 09/11/2024 8:31 AM EST LAB[facility] Blood Capillary blood specimen / Unknown Venipuncture / Unknown 09/11/2024 8:04 AM EST 09/11/2024 8:09 AM EST Alfreda DAHL LAB BLOOD ORDERABLE S Final Result LABORATORY [facility] [address] [place] [address] * PHOSPHORUS (09/11/2024 6:44 AM EST) [facility] Signature Phosphorus 3.4 2.5 - 4.8 mg/dL 09/11/2024 7:36 AM EST LAB[facility]ATORY [facility] Blood Venous blood specimen / Unknown Venipuncture / Unknown 09/11/2024 6:44 AM EST 09/11/2024 7:03 AM EST Alfreda INGRAMNP LAB BLOOD ORDERABLE S Final Result LABORATORY [facility] [address] [place] [address] * MAGNESIUM (09/11/2024 6:44 AM EST) Magnesium 1.8 1.5 - 2.6 mg/dL 09/11/2024 7:36 AM EST LABORATORY [facility] Blood Venous blood specimen / Unknown Venipuncture / Unknown 09/11/2024 6:44 AM EST 09/11/2024 7:03 AM EST us Alfredazari Lyonbarber AGRICULTURAL TECHNICIAN LAB BLOOD ORDERABLE S Final Result LABORATORY [facility] [address] [place] [address] * (ABNORMAL) BASIC METABOLIC PANEL (09/11/2024 6:44 AM EST) BUN 15 6 - 20 mg/dL 09/11/2024 7:36 AM EST LAB[facility]ATORY [facility] CREATININE 1.3(H) 0.6 - 1.2 mg/dL 09/11/2024 7:36 AM EST LAB[facility]ATORY [facility] EGFR 52(L) >=60 mL/min 09/11/2024 7:36 AM EST LAB[facility]ATORY [facility] Comment:eGFR is calculated b ased on the CKD-EPI 2020 equation. SODIUM 140 135 - 146 mmol/L 09/11/2024 7:36 AM EST LAB[facility]ATORY [facility] POTASSIUM 3.8 3.5 - 5.1 mmol/L 09/11/2024 7:36 AM EST LAB[facility]ORY [facility] CHLORIDE 106 98 - 107 mmol/L 09/11/2024 7:36 AM EST LAB[facility]ORY [facility] CO2 17(L) 22 - 32 mmol/L 09/11/2024 7:36 AM EST LAB[facility]ORY [facility] ANION GAP 17(H) 7 - 15 mmol/L 09/11/2024 7:36 AM EST LAB[facility]ORY [facility] GLUCOSE 116 70 - 120 mg/dL 09/11/2024 7:36 AM EST LAB[facility]ORY [facility] CALCIUM 8.4 8.4 - 10.2 mg/dL 09/11/2024 7:36 AM EST LAB[facility]ORY [facility] Blood Venous blood specimen / Unknown Venipuncture / Unknown 09/11/2024 6:44 AM EST 09/11/2024 7:03 AM EST us Alfredazari Darling Ariane DAHL LAB BLOOD ORDERABLE S Final Result LABORATORY [facility] [address] [place] [address] * (ABNORMAL) GLUCOSE METER, POINT OF CARE (09/11/2024 5:26 AM EST) Glucose - POCT 126(H) 70 - 120 mg/dL 09/11/2024 5:38 AM EST [facility] Blood Whole blood specimen / Unknown 09/11/2024 5:26 AM EST 09/11/2024 5:38 AM EST Scott Frankel MD LAB POINT OF CARE TEST DOCKED DEVICE UNSOLICITED RESULTS Final Result Performing Organization Address City/[facility]/ZIP Co de Phone Number [facility] [address] [place] [address] * GLUCOSE METER, POINT OF CARE (09/11/2024 12:18 AM EST) Glucose - POCT 118 70 - 120 mg/dL 09/11/2024 12:23 AM EST [facility] Blood Whole blood specimen / Unknown 09/11/2024 12:18 AM EST 09/11/2024 12:23 AM EST Scott Frankel MD LAB POINT OF CARE TEST DOCKED DEVICE UNSOLICITED RESULTS Final Result [facility] [address] [place] [address] * (ABNORMAL) GLUCOSE METER, POINT OF CARE (09/10/2024 6:05 PM EST) Glucose - POCT 128(H) 70 - 120 mg/dL 09/10/2024 6:07 PM EST [facility] Blood Whole blood specimen / Unknown 09/10/2024 6:05 PM EST 09/10/2024 6:07 PM EST Scott Frankel MD LAB POINT OF CARE TEST DOCKED DEVICE UNSOLICITED RESULTS Final Result [facility] [address] [place] [address] * (ABNORMAL) GLUCOSE METER, POINT OF CARE (09/10/2024 11:58 AM EST) Glucose - POCT 153(H) 70 - 120 mg/dL 09/10/2024 12:13 PM EST [facility] Blood Whole blood specimen / Unknown 09/10/2024 11:58 AM EST 09/10/2024 12:13 PM EST Scott Frankel MD LAB POINT OF CARE TEST DOCKED DEVICE UNSOLICITED RESULTS Final Result Performing Organization Address City/[facility]/ZIP Co de Phone Number [facility] [address] [place] [address] * (ABNORMAL) GLUCOSE METER, POINT OF CARE (09/10/2024 6:07 AM EST) Glucose - POCT 138(H) 70 - 120 mg/dL 09/10/2024 6:11 AM EST [facility] Blood Whole blood specimen / Unknown 09/10/2024 6:07 AM EST 09/10/2024 6:11 AM EST Scott Frankel MD LAB POINT OF CARE TEST DOCKED DEVICE UNSOLICITED RESULTS Final Result Performing Organization Address City/[facility]/ZIP Co de Phone Number [facility] [address] [place] [address] * PHOSPHORUS (09/10/2024 6:03 AM EST) Phosphorus 3.8 2.5 - 4.8 mg/dL 09/10/2024 6:44 AM EST LAB[facility]ATORY [facility] Blood Venous blood specimen / Unknown Venipuncture / Unknown 09/10/2024 6:03 AM EST 09/10/2024 6:09 AM EST Alfreda DAHL LAB BLOOD ORDERABLE S Final Result Performing Organization Address [facility] Co de Phone Number LABORATORY [facility] [address] [place] [address] * MAGNESIUM (09/10/2024 6:03 AM EST) Magnesium 1.7 1.5 - 2.6 mg/dL 09/10/2024 6:44 AM EST LABORATORY [facility] Blood Venous blood specimen / Unknown Venipuncture / Unknown 09/10/2024 6:03 AM EST 09/10/2024 6:09 AM EST Alfreda INGRAMNP LAB BLOOD ORDERABLE S Final Result Performing Organization Address [facility] de Phone Number LABORATORY [facility] [address] [place] [address] * (ABNORMAL) BASIC METABOLIC PANEL (09/10/2024 6:03 AM EST) BUN 16 6 - 20 mg/dL 09/10/2024 6:44 AM EST LABORATORY [facility] CREATININE 1.4(H) 0.6 - 1.2 mg/dL 09/10/2024 6:44 AM EST LABORATORY [facility] EGFR 49(L) >=60 mL/min 09/10/2024 6:44 AM EST LAB[facility]ATORY [facility] Comment:eGFR is calculated b ased on the CKD-EPI 2020 equation. SODIUM 142 135 - 146 mmol/L 09/10/2024 6:44 AM EST LAB[facility]ATORY [facility] POTASSIUM 3.6 3.5 - 5.1 mmol/L 09/10/2024 6:44 AM EST LAB[facility] CHLORIDE 108(H) 98 - 107 mmol/L 09/10/2024 6:44 AM EST LAB[facility]ORY [facility] CO2 20(L) 22 - 32 mmol/L 09/10/2024 6:44 AM EST LAB[facility]ORY [facility] ANION GAP 14 7 - 15 mmol/L 09/10/2024 6:44 AM EST LABORATORY [facility] GLUCOSE 140(H) 70 - 120 mg/dL 09/10/2024 6:44 AM EST LAB[facility]ORY [facility] CALCIUM 8.5 8.4 - 10.2 mg/dL 09/10/2024 6:44 AM EST LABORATORY [facility] Blood Venous blood specimen / Unknown Venipuncture / Unknown 09/10/2024 6:03 AM EST 09/10/2024 6:09 AM EST us Alfreda DAHL LAB BLOOD ORDERABLE S Final Result LABORATORY [facility] [address] [place] [address] * (ABNORMAL) CBC (09/10/2024 6:03 AM EST) WBC 7.49 4.00 - 10.80 K/uL 09/10/2024 6:22 AM EST LAB[facility]ATORY [facility] RBC 3.99 4.50 - 5.25 M/uL 09/10/2024 6:22 AM EST LAB[facility]ATORY [facility] HGB 11.4(L) 14.0 - 16.8 g/dL 09/10/2024 6:22 AM EST LAB[facility] HCT 35.3(L) 40.0 - 48.4 % 09/10/2024 6:22 AM EST LAB[facility]ORY [facility] MCV 88.5 82.0 - 99.5 fL 09/10/2024 6:22 AM EST LAB[facility]ORY [facility] MCH 28.6 27.0 - 34.0 pg 09/10/2024 6:22 AM EST LAB[facility]ORY [facility] MCHC 32.3 32.0 - 36.0 g/dL 09/10/2024 6:22 AM EST LAB[facility]ORY [facility] RDW 13.4 11.5 - 15.5 % 09/10/2024 6:22 AM EST LAB[facility]ATORY [facility] PLT 161 140 - 400 K/uL 09/10/2024 6:22 AM EST LAB[facility]ORY [facility] MPV 10.6 6.6 - 11.1 fL 09/10/2024 6:22 AM EST LAB[facility]ATORY [facility] nRBCs 0 <=0 /100 WBCs 09/10/2024 6:22 AM EST LAB[facility]ORY [facility] Blood Venous blood specimen / Unknown Venipuncture / Unknown 09/10/2024 6:03 AM EST 09/10/2024 6:09 AM EST Alfreda Thakkar AGRICULTURAL TECHNICIAN LAB BLOOD ORDERABLE S Final Result LABORATORY [facility] [address], [place] [id number] * XR CHEST 1 VIEW (09/10/2024 3:42 AM EST) Anatomical Region Laterality Modality Chest Computed Radiogr aphy 09/10/2024 8:07 AM EST Impressions 09/10/2024 8:05 AM EST IMPRESSION No significant interval change in the chest Narrative 09/10/2024 8:05 AM EST EXAM XR CHEST 1 VIEW-09/10/2024 3:42 am HISTORY short of breath COMPARISON 09/08/24 TECHNIQUE Single image FINDINGS Loop recorder projects over the left cardiac silhouette. Stable enlargement of the cardiomediastinal silhouette. Atherosclerotic calcification of the thoracic aorta. Bibasilar opacities with small bilateral pleural effusions, unchanged. Diffuse increased pulmonary vascular markings, suggestive of pulmonary edema. No pneumothorax. Degenerative osseous changes. Procedure Note Denise Hamilton MD - 09/10/2024 EXAM XR CHEST 1 VIEW-09/10/2024 3:42 am HISTORY short of breath COMPARISON 09/08/24 TECHNIQUE Single image FINDINGS Loop recorder projects over the left cardiac silhouette. Stableenlargement of the cardiomediastinal silhouette. Atheroscleroticcalcification of the thoracic aorta. Bibasilar opacities with smallbilateral pleural effusions, unchanged. Diffuse increased pulmonaryvascular markings, suggestive of pulmonary edema. No pneumothorax.Degenerative osseous changes. IMPRESSION IMPRESSION No significant interval change in the chest Patricio Mercedes PA-C RADIOLOGY (RAD GENERAL) Final Result * (ABNORMAL) GLUCOSE METER, POINT OF CARE (09/10/2024 12:08 AM EST) Glucose - POCT 128(H) 70 - 120 mg/dL 09/10/2024 12:13 AM EST [facility] Blood Whole blood specimen / Unknown 09/10/2024 12:08 AM EST 09/10/2024 12:13 AM EST Scott Frankel MD LAB POINT OF CARE TEST DOCKED DEVICE UNSOLICITED RESULTS Final Result [facility] [address] [place] [address] * (ABNORMAL) GLUCOSE METER, POINT OF CARE (09/09/2024 4:43 PM EST) Glucose - POCT 121(H) 70 - 120 mg/dL 09/09/2024 4:49 PM EST [facility] Blood Whole blood specimen / Unknown 09/09/2024 4:43 PM EST 09/09/2024 4:49 PM EST Scott Frankel MD LAB POINT OF CARE TEST DOCKED DEVICE UNSOLICITED RESULTS Final Result Performing Organization Address [facility]/ZIP Co de Phone Number [facility] [address] [place] [address] * (ABNORMAL) GLUCOSE METER, POINT OF CARE (09/09/2024 11:59 AM EST) Glucose - POCT 126(H) 70 - 120 mg/dL 09/09/2024 12:17 PM EST [facility] Blood Whole blood specimen / Unknown 09/09/2024 11:59 AM EST 09/09/2024 12:17 PM EST Scott Frankel MD LAB POINT OF CARE TEST DOCKED DEVICE UNSOLICITED RESULTS Final Result [facility] [address] [place] [address] * PHOSPHORUS (09/09/2024 7:49 AM EST) Phosphorus 2.8 2.5 - 4.8 mg/dL 09/09/2024 8:35 AM EST LABORATORY C Blood Venous blood specimen / Unknown Venipuncture / Unknown 09/09/2024 7:49 AM EST 09/09/2024 8:08 AM EST Alfreda INGRAMNP LAB BLOOD ORDERABLE S Final Result LABORATORY [facility] [address] [place] [address] * MAGNESIUM (09/09/2024 7:49 AM EST) Pathologist [facility] Magnesium 1.9 1.5 - 2.6 mg/dL 09/09/2024 8:35 AM EST LABORATORY [facility] Blood Venous blood specimen / Unknown Venipuncture / Unknown 09/09/2024 7:49 AM EST 09/09/2024 8:08 AM EST [facility] LAB BLOOD ORDERABLE S Final Result Performing Organization Address City/[facility] [place] [address] * (ABNORMAL) BASIC METABOLIC PANEL (09/09/2024 7:49 AM EST) Pathologist [facility] BUN 15 6 - 20 mg/dL 09/09/2024 8:35 AM EST LAB[facility]ATORY [facility] CREATININE 1.4(H) 0.6 - 1.2 mg/dL 09/09/2024 8:35 AM EST LAB[facility]ATORY [facility] EGFR 47(L) >=60 mL/min 09/09/2024 8:35 AM EST LAB[facility]ATORY [facility] Comment:eGFR is calculated b ased on the CKD-EPI 2020 equation. SODIUM 142 135 - 146 mmol/L 09/09/2024 8:35 AM EST LAB[facility] POTASSIUM 3.8 3.5 - 5.1 mmol/L 09/09/2024 8:35 AM EST LAB[facility] CHLORIDE 110(H) 98 - 107 mmol/L 09/09/2024 8:35 AM EST LAB[facility] CO2 22 22 - 32 mmol/L 09/09/2024 8:35 AM EST LAB[facility] ANION GAP 10 7 - 15 mmol/L 09/09/2024 8:35 AM EST LAB[facility] GLUCOSE 161(H) 70 - 120 mg/dL 09/09/2024 8:35 AM EST LAB[facility]ORY [facility] CALCIUM 8.6 8.4 - 10.2 mg/dL 09/09/2024 8:35 AM EST LAB[facility] Blood Venous blood specimen / Unknown Venipuncture / Unknown 09/09/2024 7:49 AM EST 09/09/2024 8:08 AM EST us Alfreda DAHL LAB BLOOD ORDERABLE S Final Result [facility]ORY [facility] [address] [place] [address] * (ABNORMAL) CBC (09/09/2024 7:49 AM EST) WBC 6.71 4.00 - 10.80 K/uL 09/09/2024 8:30 AM EST LAB[facility]ATORY [facility] RBC 3.86 4.50 - 5.25 M/uL 09/09/2024 8:30 AM EST LAB[facility]ORY [facility] HGB 10.9(L) 14.0 - 16.8 g/dL 09/09/2024 8:30 AM EST LAB[facility]ORY [facility] HCT 34.1(L) 40.0 - 48.4 % 09/09/2024 8:30 AM EST LAB[facility] MCV 88.3 82.0 - 99.5 fL 09/09/2024 8:30 AM EST LAB[facility] MCH 28.2 27.0 - 34.0 pg 09/09/2024 8:30 AM EST LAB[facility] MCHC 32.0 32.0 - 36.0 g/dL 09/09/2024 8:30 AM EST LAB[facility]ORY [facility] RDW 13.2 11.5 - 15.5 % 09/09/2024 8:30 AM EST LAB[facility]ORY [facility] PLT 139(L) 140 - 400 K/uL 09/09/2024 8:30 AM EST LAB[facility] MPV 10.5 6.6 - 11.1 fL 09/09/2024 8:30 AM EST LABORATORY [facility] nRBCs 0 <=0 /100 WBCs 09/09/2024 8:30 AM EST LABORATORY [facility] Blood Venous blood specimen / Unknown Venipuncture / Unknown 09/09/2024 7:49 AM EST 09/09/2024 8:09 AM EST Alfreda DAHL LAB BLOOD ORDERABLE S Final Result LABORATORY [facility] [address] [place] [address] * (ABNORMAL) GLUCOSE METER, POINT OF CARE (09/09/2024 5:15 AM EST) Glucose - POCT 156(H) 70 - 120 mg/dL 09/09/2024 5:42 AM EST [facility] Blood Whole blood specimen / Unknown 09/09/2024 5:15 AM EST 09/09/2024 5:42 AM EST Scott Frankel MD LAB POINT OF CARE TEST DOCKED DEVICE UNSOLICITED RESULTS Final Result Performing Organization Address [facility] Co de Phone Number [facility] [address] [place] [address] * (ABNORMAL) GLUCOSE METER, POINT OF CARE (09/08/2024 9:43 PM EST) Glucose - POCT 153(H) 70 - 120 mg/dL 09/08/2024 9:51 PM EST [facility] Blood Whole blood specimen / Unknown 09/08/2024 9:43 PM EST 09/08/2024 9:51 PM EST Scott Frankel MD LAB POINT OF CARE TEST DOCKED DEVICE UNSOLICITED RESULTS Final Result Performing Organization Address City/[facility]/ZIP Co de Phone Number [facility] [address] [place] [address] * EKG (09/08/2024 9:13 PM EST) 09/08/2024 9:13 PM EST Narrative Procedure Note Lane Crain MD - 09/08/2024 9:13 PM EST REASON FOR STUDY: Notify provider if obtaining EKG;Chest pain CONCLUSIONS: Normal sinus rhythm High QRS voltage may be normal variant or due to lve ( [place] product ) ST & T wave abnormality, consider lateral ischemia Abnormal ECG When compared with ECG of 08-Sep-2024 17:14, T wave inversion now evident in Lateral leads Ventricular Rate: 79 Atrial Rate: 79 VA Interval: 158 QRS Duration: 112 QT/QTc: 438/502 ms P-R-T Vancleve: 38 : 8 : 120 degrees us Powre Matthews MD EKG Final Res ult Performing Organization Address [facility] Phone Number [employer] * EKG (09/08/2024 5:14 PM EST) 09/08/2024 5:14 PM EST Narrative Procedure Note Lane Crain MD - 09/08/2024 5:14 PM EST REASON FOR STUDY: Notify provider if obtaining EKG;Chest pain CONCLUSIONS: Poor data quality, interpretation may be adversely affected Normal sinus rhythm High QRS voltage may be normal variant or due to lve ( [place] product ) Nonspecific ST abnormality Prolonged QT interval or tu fusion, consider myocardial disease,electrolyte imbalance, or drug effects Abnormal ECG When compared with ECG of 07-Sep-2024 13:25, Premature ventricular complexes are no longer Present Criteria for Septal infarct are no longer Present Ventricular Rate: 84 Atrial Rate: 84 VA Interval: 170 QRS Duration: 114 QT/QTc: 412/486 ms P-R-T Vancleve: 36 : -12 : 78 degrees us Power Matthews MD EKG Final Res ult Performing Organization Address [facility] Phone Number [employer] * GLUCOSE METER, POINT OF CARE (09/08/2024 4:16 PM EST) Glucose - POCT 106 70 - 120 mg/dL 09/08/2024 4:32 PM EST [employer] Blood Whole blood specimen / Unknown 09/08/2024 4:16 PM EST 09/08/2024 4:32 PM EST Scott Frankel MD LAB POINT OF CARE TEST DOCKED DEVICE UNSOLICITED RESULTS Final Result [facility] [address] [place] [address] * (ABNORMAL) GLUCOSE METER, POINT OF CARE (09/08/2024 1:13 PM EST) [facility] Glucose - POCT 122(H) 70 - 120 mg/dL 09/08/2024 4:32 PM EST [employer] Blood Whole blood specimen / Unknown 09/08/2024 1:13 PM EST 09/08/2024 4:32 PM EST Scott Frankel MD LAB POINT OF CARE TEST DOCKED DEVICE UNSOLICITED RESULTS Final Result Performing Organization Address City/[facility] de Phone Number [phone] ALLEN [address] [address] * XR CHEST 1 VIEW (09/08/2024 12:04 PM EST) Anatomical Region Laterality Modality Chest Computed Radiogr aphy 09/08/2024 1:56 PM EST Impressions 09/08/2024 1:54 PM EST IMPRESSION Pulmonary edema. Narrative 09/08/2024 1:54 PM EST EXAM XR CHEST 1 VIEW - 09/08/2024 12:04 pm HISTORY flash pulm edema likely COMPARISON No Comparison. TECHNIQUE Frontal view of the chest. FINDINGS Support apparatus: Loop recorder Diffuse ground-glass opacities and prominent interstitial markings. Likely small pleural effusions. No sizable pneumothorax. Prominent cardiac silhouette. Atherosclerosis. Degenerative osseous changes. Procedure Note Corby Hollis II, MD - 09/08/2024 EXAM XR CHEST 1 VIEW - 09/08/2024 12:04 pm HISTORY flash pulm edema likely COMPARISON No Comparison. TECHNIQUE Frontal view of the chest. FINDINGS Support apparatus: Loop recorder Diffuse ground-glass opacities and prominent interstitial markings.Likely small pleural effusions. No sizable pneumothorax. Prominentcardiac silhouette. Atherosclerosis. Degenerative osseous changes. IMPRESSION IMPRESSION Pulmonary edema. Schuyler Waddell DO RADIOLOGY (RAD GENERAL) Final Result * PHOSPHORUS (09/08/2024 6:05 AM EST) Phosphorus 4.0 2.5 - 4.8 mg/dL 09/08/2024 6:32 AM EST LABORATORY [facility] Blood Venous blood specimen / Unknown Venipuncture / Unknown 09/08/2024 6:05 AM EST 09/08/2024 6:10 AM EST [facility]ane [facility] LAB BLOOD ORDERABLE S Final Result LABORATORY [facility] [address] [place] [address] * MAGNESIUM (09/08/2024 6:05 AM EST) Magnesium 2.3 1.5 - 2.6 mg/dL 09/08/2024 6:32 AM EST LABORATORY [facility] Blood Venous blood specimen / Unknown Venipuncture / Unknown 09/08/2024 6:05 AM EST 09/08/2024 6:10 AM EST [facility] Lyon[facility] LAB BLOOD ORDERABLE S Final Result Performing Organization Address City/[facility]/ZIP Co de Phone Number LABORATORY [facility] [address] [place] [address] * (ABNORMAL) BASIC METABOLIC PANEL (09/08/2024 6:05 AM EST) BUN 18 6 - 20 mg/dL 09/08/2024 6:32 AM EST LABORATORY [facility] CREATININE 1.6(H) 0.6 - 1.2 mg/dL 09/08/2024 6:32 AM EST [facility] EGFR 42(L) >=60 mL/min 09/08/2024 6:32 AM EST [facility] Comment:eGFR is calculated b ased on the CKD-EPI 2020 equation. SODIUM 136 135 - 146 mmol/L 09/08/2024 6:32 AM EST [facility] POTASSIUM 4.7 3.5 - 5.1 mmol/L 09/08/2024 6:32 AM EST [facility] CHLORIDE 106 98 - 107 mmol/L 09/08/2024 6:32 AM EST [facility] CO2 20(L) 22 - 32 mmol/L 09/08/2024 6:32 AM EST [facility] ANION GAP 10 7 - 15 mmol/L 09/08/2024 6:32 AM EST [facility] GLUCOSE 191(H) 70 - 120 mg/dL 09/08/2024 6:32 AM EST [facility] CALCIUM 8.1(L) 8.4 - 10.2 mg/dL 09/08/2024 6:32 AM EST [facility] Blood Venous blood specimen / Unknown Venipuncture / Unknown 09/08/2024 6:05 AM EST 09/08/2024 6:10 AM EST Alfreda INGRAMNP LAB BLOOD ORDERABLE S Final Result [facility] [address] [place] [address] * (ABNORMAL) CBC (09/08/2024 6:05 AM EST) WBC 6.93 4.00 - 10.80 K/uL 09/08/2024 6:55 AM EST [facility] RBC 3.48 4.50 - 5.25 M/uL 09/08/2024 6:55 AM EST [facility] HGB 10.2(L) 14.0 - 16.8 g/dL 09/08/2024 6:55 AM EST [facility] HCT 32.6(L) 40.0 - 48.4 % 09/08/2024 6:55 AM EST [facility] MCV 93.7 82.0 - 99.5 fL 09/08/2024 6:55 AM EST LAB[facility]ATORY [facility] MCH 29.3 27.0 - 34.0 pg 09/08/2024 6:55 AM EST LAB[facility]ATORY [facility] MCHC 31.3 32.0 - 36.0 g/dL 09/08/2024 6:55 AM EST LAB[facility]ATORY [facility] RDW 13.2 11.5 - 15.5 % 09/08/2024 6:55 AM EST LABORATORY [facility] PLT 116(L) 140 - 400 K/uL 09/08/2024 6:55 AM EST LABORATORY [facility] MPV 11.1 6.6 - 11.1 fL 09/08/2024 6:55 AM EST LAB[facility]ATORY [facility] nRBCs 0 <=0 /100 WBCs 09/08/2024 6:55 AM EST LAB[facility]ATORY [facility] Blood Capillary blood specimen / Unknown Capillary / Unknown 09/08/2024 6:05 AM EST 09/08/2024 6:10 AM EST Alfreda DAHL LAB BLOOD ORDERABLE S Final Result Performing Organization Address [facility] Co de Phone Number LABORATORY [facility] [address] [place] [address] * EKG (09/07/2024 1:25 PM EST) 09/07/2024 1:25 PM EST Narrative Procedure Note Sumanth Teresa MD - 09/07/2024 1:25 PM EST REASON FOR STUDY: measure QTc;measure QTc;Electrolyte abnorma CONCLUSIONS: Sinus rhythm with occasional Premature ventricular complexes High QRS voltage may be normal variant or due to lve ( Mo product ) Septal infarct , age undetermined Abnormal ECG When compared with ECG of 05-Sep-2024 14:09, Premature ventricular complexes are now Present Septal infarct is now Present Ventricular Rate: 86 Atrial Rate: 86 VA Interval: 164 QRS Duration: 106 QT/QTc: 416/497 ms P-R-T Vancleve: 35 : -8 : 55 degrees Andre Ledezma Whitney DO EKG Final Result [facility] * (ABNORMAL) TROPONIN T, HIGH SENSITIVITY (09/07/2024 5:32 AM EST) Pathologist [facility] Troponin T, High Sensitivity 62(H) <=22 ng/L 09/07/2024 6:10 PM EST LABORATORY [facility] Blood Venous blood specimen / Unknown Venipuncture / Unknown 09/07/2024 5:32 AM EST 09/07/2024 5:53 AM EST Cathyhalima Mcneal LAB BLOOD ORDERABLES Final Res ult Performing Organization Address City/[facility] Co de Phone Number LABORATORY [facility] [address] [place] [address] * (ABNORMAL) HEMOGLOBIN A1C (09/07/2024 5:32 AM EST) [facility] Hemoglobin A1C 6.9(H) 4.0 - 5.6 % 09/07/2024 6:11 PM EST LABORATORY [facility] Comment:The use of HbA1c to monitor glycemic status is based on normal hemoglobin and HbA composition. This test should not be used in patients with abnormal hemoglobin that affects the half life of the red blood cell or the in vivo glycation rates. Estimated Average Glucose 151(H) <126 mg/dL 09/07/2024 6:11 PM EST LABORATORY [facility] Blood Venous blood specimen / Unknown Venipuncture / Unknown 09/07/2024 5:32 AM EST 09/07/2024 5:53 AM EST Cathyhalima Mcneal LAB BLOOD ORDERABLES Final Res ult Performing Organization Address [facility] Co de Phone Number LABORATORY [facility] [address] [place] [address] * (ABNORMAL) LIPID PANEL WITH DIRECT LDL IF TG IS HIGH (09/07/2024 5:32 AM EST) Pathologist [facility] Triglycerides 99 <=174 mg/dL 09/07/2024 6:10 PM EST LABORATORY [facility] Comment: Triglyceride Reference Ranges (mg/dL): <150 Acceptable 150-174 Borderline high 175-499 High >=500 Very high Cholesterol 99 <200 mg/dL 09/07/2024 6:10 PM EST LABORATORY [facility] Comment: Total Cholesterol Reference Ranges (mg/dL): <200 Desirable 200-239 Borderline high >=240 High HDL Cholesterol 37(L) >39 mg/dL 6:10 PM EST LABORATORY [facility] Comment: HDL Cholesterol Reference Ranges (mg/dL): >=60 High (Desirable) <50 Low (Undesirable) For Females <40 Low (Undesirable) For Males Non-HDL Cholesterol 62 <=159 mg/dL 09/07/2024 6:10 PM EST LABORATORY [facility] Comment: Non-HDL Cholesterol Reference Range (mg/dL): <100 Target level for high risk ASCVD patient <130 Optimal for general population 130-159 Near optimal for general population 160-189 Borderline High 190-219 High >=220 Very High LDL Cholesterol 42 <=129 mg/dL 09/07/2024 6:10 PM EST LABORATORY [facility] Comment: LDL Cholesterol Reference Ranges (mg/dL): <70 Target level for high risk ASCVD patient <100 Optimal for general population 100-129 Near optimal for general population 130-159 Borderline high 160-189 High >=190 Very high Blood Venous blood specimen / Unknown Venipuncture / Unknown 09/07/2024 5:32 AM EST 09/07/2024 5:53 AM EST Cathy Mcneal DO LAB BLOOD ORDERABLES Final Res ult Performing Organization Address City/State/[facility] Co de Phone Number LABORATORY [facility] [address] [place] [address] * PHOSPHORUS (09/07/2024 5:32 AM EST) Phosphorus 3.4 2.5 - 4.8 mg/dL 09/07/2024 6:28 AM EST LABORATORY [facility] Blood Venous blood specimen / Unknown Venipuncture / Unknown 09/07/2024 5:32 AM EST 09/07/2024 5:53 AM EST Alfreda DAHL LAB BLOOD ORDERABLE S Final Result Performing Organization Address City/[facility]/ZIP Co de Phone Number LABORATORY [facility] [address] [place] [address] * MAGNESIUM (09/07/2024 5:32 AM EST) Pathologist [facility] Magnesium 2.4 1.5 - 2.6 mg/dL 09/07/2024 6:28 AM EST [facility] Blood Venous blood specimen / Unknown Venipuncture / Unknown 09/07/2024 5:32 AM EST 09/07/2024 5:53 AM EST Alfredazari Darling Ariane [facility] LAB BLOOD ORDERABLE S Final Result Performing Organization Address [facility] Co de Phone Number LABORATORY [facility] [address] [place] [address] * (ABNORMAL) BASIC METABOLIC PANEL (09/07/2024 5:32 AM EST) Pathologist [facility] BUN 17 6 - 20 mg/dL 09/07/2024 6:28 AM EST [facility] CREATININE 1.7(H) 0.6 - 1.2 mg/dL 09/07/2024 6:28 AM EST [facility] EGFR 40(L) >=60 mL/min 09/07/2024 6:28 AM EST [facility] Comment:eGFR is calculated b ased on the CKD-EPI 2020 equation. SODIUM 139 135 - 146 mmol/L 09/07/2024 6:28 AM EST [facility] POTASSIUM 4.4 3.5 - 5.1 mmol/L 09/07/2024 6:28 AM EST [facility] CHLORIDE 104 98 - 107 mmol/L 09/07/2024 6:28 AM EST [facility] CO2 21(L) 22 - 32 mmol/L 09/07/2024 6:28 AM EST [facility] ANION GAP 14 7 - 15 mmol/L 09/07/2024 6:28 AM EST [facility] GLUCOSE 131(H) 70 - 120 mg/dL 09/07/2024 6:28 AM EST [facility] CALCIUM 8.4 8.4 - 10.2 mg/dL 09/07/2024 6:28 AM EST [facility] Blood Venous blood specimen / Unknown Venipuncture / Unknown 09/07/2024 5:32 AM EST 09/07/2024 5:53 AM EST Alfredazari Darling Ariane INGRAMNP LAB BLOOD ORDERABLE S Final Result LABORATORY [facility] [address] [place] [address] * (ABNORMAL) CBC (09/07/2024 5:32 AM EST) [facility] WBC 10.64 4.00 - 10.80 K/uL 09/07/2024 6:10 AM EST [facility] RBC 3.94 4.50 - 5.25 M/uL 09/07/2024 6:10 AM EST [facility] HGB 11.1(L) 14.0 - 16.8 g/dL 09/07/2024 6:10 AM EST [facility] HCT 35.0(L) 40.0 - 48.4 % 09/07/2024 6:10 AM EST [facility] MCV 88.8 82.0 - 99.5 fL 09/07/2024 6:10 AM EST [facility] MCH 28.2 27.0 - 34.0 pg 09/07/2024 6:10 AM EST [facility] MCHC 31.7 32.0 - 36.0 g/dL 09/07/2024 6:10 AM EST [facility] RDW 13.3 11.5 - 15.5 % 09/07/2024 6:10 AM EST [facility] PLT 196 140 - 400 K/uL 09/07/2024 6:10 AM EST [facility] MPV 11.1 6.6 - 11.1 fL 09/07/2024 6:10 AM EST [facility] nRBCs 0 <=0 /100 WBCs 09/07/2024 6:10 AM EST LABORATORY [facility] Blood Venous blood specimen / Unknown Venipuncture / Unknown 09/07/2024 5:32 AM EST 09/07/2024 5:53 AM EST Alfreda INGRAMNP LAB BLOOD ORDERABLE S Final Result LABORATORY [facility] [address] [place] [address] * VASC ANKLE BRACHIAL INDICES WITHOUT PPG (PAD) (09/06/2024 3:31 PM EST) Anatomical Region Laterality Modality Extremity, Ankle, Vascular, Lower Extremity, Fausto t Ultrasound Impressions 09/06/2024 6:56 PM EST : JENN at rest is 1.24 on the right and 0.51 on the left. 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 Lower extremity Doppler Evaluation is normal at rest with no evidence of significant arterial occlusive disease. For the left lower extremity: Lower extremity Doppler Evaluation is consistent with moderate arterial occlusive disease. Narrative 09/06/2024 6:56 PM EST VASCULAR LAB RESULTS DATE OF EXAMINATION: 09/06/24 INDICATION: asymetrical pulse exam with cold LLE ANKLE BRACHIAL INDEX OF THE LOWER EXTREMITIES Immediately before proceeding with the vascular lab procedure reported below, the identity of the patient, the correct exam and the correct procedural site were identified. Continuous wave doppler and appropriate size pressure cuffs were utilized during the examination. Findings: The right brachial artery blood pressures 136 mmHg respectively. On the right, the posterior tibial artery waveform is triphasic and has an amplitude which is excellent. . The right dorsalis pedis artery waveform is triphasic and has an amplitude which is excellent. The right peroneal artery waveform is biphasic and has an amplitude which is good. The tibial pressures range from 156 mmHg to 168 mmHg. On the left, the posterior tibial artery waveform is biphasic and has an amplitude which is decreased. . The left dorsalis pedis artery waveform is biphasic and has an amplitude which is nearly flat . . The tibial pressures are 70 mmHg us Power Matthews MD RAD VASCULAR Final Res ult * CT HEAD/BRAIN WO CONTRAST (09/06/2024 3:27 PM EST) Anatomical Region Laterality Modality Head Computed Tomogra phy 09/06/2024 4:15 PM EST Impressions 09/06/2024 4:13 PM EST IMPRESSION: 1. 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 No evidence of significant midline shift. 2. Additional scattered foci of bilateral cerebral hemispheric peripheral late acute/early subacute infarcts, potentially embolic and better appreciated on prior MRI brain dated 09/06/2024. Narrative 09/06/2024 4:13 PM EST EXAM: CT HEAD/BRAIN WO CONTRAST - 09/06/2024 HISTORY: Abnormal neurologic exam, assess for evolution of bleed TECHNIQUE: CT scan of the head was performed without intravenous contrast. COMPARISON: MRI brain dated 09/06/2024, CT head dated 09/05/2024. 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 No evidence of significant midline shift. Additional scattered foci of bilateral cerebral hemispheric peripheral late acute/early subacute infarcts, potentially embolic and better appreciated on prior MRI brain dated 09/06/2024. Generalized volume loss is appreciated. Bilateral, right greater than left, occipital encephalomalacia and right cerebellar encephalomalacia are again noted, consistent with prior infarcts. Patchy hypodensities in the periventricular and deep cerebral white matter are nonspecific, but most commonly represent chronic microvascular ischemic changes. Intracranial vascular calcifications are noted. There is no evidence of hydrocephalus. 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 Additional mild paranasal mucosal thickening is noted. The mastoid air cells are clear. The calvarium is intact. Procedure Note Ca Hutchins, DO - 09/06/2024 EXAM: CT HEAD/BRAIN WO CONTRAST - 09/06/2024 HISTORY: Abnormal neurologic exam, assess for evolution of bleed TECHNIQUE: CT scan of the head was performed without intravenous contrast. COMPARISON: MRI brain dated 09/06/2024, CT head dated 09/05/2024. 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 No evidence of significant midline shift. Additional scattered foci of bilateral cerebral hemispheric peripherallate acute/early subacute infarcts, potentially embolic and betterappreciated on prior MRI brain dated 09/06/2024. Generalized volume loss is appreciated. Bilateral, right greater thanleft, occipital encephalomalacia and right cerebellar encephalomalacia areagain noted, consistent with prior infarcts. Patchy hypodensities in theperiventricular and deep cerebral white matter are nonspecific, but mostcommonly represent chronic microvascular ischemic changes. Intracranialvascular calcifications are noted. There is no evidence of hydrocephalus. 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 Additional mild paranasalmucosal thickening is noted. The mastoid air cells are clear. Thecalvarium is intact. IMPRESSION IMPRESSION: 1. Continued evolution of left MCA territory ischemic infarction withstable mass effect and similar left temporal lobe intraparenchymalhematoma with mild adjacent subarachnoid hemorrhage. No evidence ofsignificant midline shift. 2. Additional scattered foci of bilateral cerebral hemispheric peripherallate acute/early subacute infarcts, potentially embolic and betterappreciated on prior MRI brain dated 09/06/2024. Shala Mosley DO RAD CT Final Result * ECHO, COMPLETE (2D), TRANS-THORACIC (09/06/2024 2:10 PM EST) LEFT VENTRICULAR EJECTION FRACTION 30 % [facility] 09/06/2024 1:47 PM EST Shala Mosley DO ECHOCARDIOLOGY Final Result [facility] * MRI BRAIN W WO CONTRAST (09/06/2024 10:05 AM EST) Anatomical Region Laterality Modality Neuro, Head Magnetic Resonan ce 09/06/2024 11:3 1 AM EST Impressions 09/06/2024 12:37 PM EST IMPRESSION Evolving left temporal lobe intraparenchymal hematoma with surrounding edema and stable (overall mild) mass-effect, favoring hemorraghic transformation/secondary hematoma within a recent left MCA territory infarct. An underlying lesion such as cerebral amyloid angiopathy, AVM or mass lesion are not entirely excluded. Recommend follow-up in 6 weeks after further hematoma resolution. Additional scattered foci of bilateral cerebral hemispheric peripheral late acute/early subacute infarcts, possibly cardioembolic given distribution. I have personally reviewed this examination and agree with the resident/fellow physician's interpretation. Narrative 09/06/2024 12:37 PM EST EXAM MRI BRAIN WITH AND WITHOUT CONTRAST - 09/06/2024 HISTORY 89 y/o M known intraparenchymal hematoma, evaluate for underlying lesion. TECHNIQUE Multiplanar, multisequence magnetic resonance imaging of the brain was performed before and after the administration of intravenous contrast. COMPARISON CT head/brain 09/05/2024 and CTA head/neck 09/05/2024 FINDINGS Evaluation is limited by patient motion artifact. Expected evolution of the left temporal lobe intraparenchymal hematoma which measures approximately 3.9 x 2.6 cm. Surrounding vasogenic edema results in deformation of the overlying sulci and left lateral ventricle. No significant midline shift. No abnormal enhancement or other signal abnormalities to suggest an underlying lesion. There is a overlying dural thickening and enhancement, likely reactive. A few smaller adjacent foci of susceptibility artifact within the left parietal lobe associated with diffusion restriction likely represent late subacute infarcts with petechial type hemorrhages. There are additional scattered foci of restricted diffusion within the bilateral temporal, parietal and left frontal cortex/subcortical white-matter with mild associated T2/FLAIR signal hyperintensity suggestive of embolic late acute/early subacute infarcts. Global brain volume loss is appreciated. Encephalomalacia within the right medial occipital pole and right cerebellar hemisphere are likely the sequale of remote infarct. There is mild ex vacuo dilation of the right lateral ventricle posterior horn. Additional scattered T2/FLAIR signal hyperintensities within the deep cerebral and periventricular white matter are nonspecific but most commonly associated with chronic microvascular ischemic disease. Surgically replaced [place] ocular lenses. Opacification of the frontal sinus. Trace inflammatory paranasal sinus mucosal thickening elsewhere. Mucous retention cyst within the posterior left nasal cavity along the septum. Calvarium and visualized craniofacial soft tissues are unremarkable. Procedure Note Rikki Bradley MD - 09/06/2024 EXAM MRI BRAIN WITH AND WITHOUT CONTRAST - 09/06/2024 HISTORY 89 y/o M known intraparenchymal hematoma, evaluate for underlyinglesion. TECHNIQUE Multiplanar, multisequence magnetic resonance imaging of the brain wasperformed before and after the administration of intravenous contrast. COMPARISON CT head/brain 09/05/2024 and CTA head/neck 09/05/2024 FINDINGS Evaluation is limited by patient motion artifact. Expected evolution of the left temporal lobe intraparenchymal hematomawhich measures approximately 3.9 x 2.6 cm. Surrounding vasogenic edemaresults in deformation of the overlying sulci and left lateral ventricle.No significant midline shift. No abnormal enhancement or other signalabnormalities to suggest an underlying lesion. There is a overlyingdural thickening and enhancement, likely reactive. A few smaller adjacent foci of susceptibility artifact within the leftparietal lobe associated with diffusion restriction likely represent latesubacute infarcts with petechial type hemorrhages. There are additional scattered foci of restricted diffusion within thebilateral temporal, parietal and left frontal cortex/subcorticalwhite-matter with mild associated T2/FLAIR signal hyperintensitysuggestive of embolic late acute/early subacute infarcts. Global brain volume loss is appreciated. Encephalomalacia within theright medial occipital pole and right cerebellar hemisphere are likely thesequale of remote infarct. There is mild ex vacuo dilation of the rightlateral ventricle posterior horn. Additional scattered T2/FLAIR signalhyperintensities within the deep cerebral and periventricular white matterare nonspecific but most commonly associated with chronic microvascularischemic disease. Surgically replaced [place] ocular lenses. Opacification of the frontalsinus. Trace inflammatory paranasal sinus mucosal thickening elsewhere.Mucous retention cyst within the posterior left nasal cavity along theseptum. Calvarium and visualized craniofacial soft tissues areunremarkable. IMPRESSION IMPRESSION Evolving left temporal lobe intraparenchymal hematoma with surroundingedema and stable (overall mild) mass-effect, favoring hemorraghictransformation/secondary hematoma within a recent left MCA territoryinfarct. An underlying lesion such as cerebral amyloid angiopathy, AVM ormass lesion are not entirely excluded. Recommend follow-up in 6 weeksafter further hematoma resolution. Additional scattered foci of bilateral cerebral hemispheric peripherallate acute/early subacute infarcts, possibly cardioembolic givendistribution. I have personally reviewed this examination and agree with the resident/fellow physician's interpretation. us Delma Romero PA-C RAD MRI-MRA Final Re sult * PHOSPHORUS (09/06/2024 6:35 AM EST) Pathologist [facility] Phosphorus 3.6 2.5 - 4.8 mg/dL 09/06/2024 9:54 AM EST LABORATORY [facility] Blood Venous blood specimen / Unknown Venipuncture / Unknown 09/06/2024 6:35 AM EST 09/06/2024 6:52 AM EST [facility] Whitney DO LAB BLOOD ORDERABLES Final R esult Performing Organization Address City/[facility]/ZIP Co de Phone Number LABORATORY [place] [address] [place] [address] * MAGNESIUM (09/06/2024 6:35 AM EST) Pathologist [facility] Magnesium 1.8 1.5 - 2.6 mg/dL 09/06/2024 9:54 AM EST LABORATORY [facility] Blood Venous blood specimen / Unknown Venipuncture / Unknown 09/06/2024 6:35 AM EST 09/06/2024 6:52 AM EST [facility] Whitney DO LAB BLOOD ORDERABLES Final R esult Performing Organization Address City/[facility] [place] [address] * (ABNORMAL) BASIC METABOLIC PANEL (09/06/2024 6:35 AM EST) Pathologist [facility] [place] BUN 19 6 - 20 mg/dL 09/06/2024 7:53 AM EST LABORATORY GM CREATININE 1.7(H) 0.6 - 1.2 mg/dL 09/06/2024 7:53 AM EST LABORATORY GM EGFR 39(L) >=60 mL/min 09/06/2024 7:53 AM EST LABORATORY GM Comment:eGFR is calculated b ased on the CKD-EPI 2020 equation. SODIUM 137 135 - 146 mmol/L 09/06/2024 7:53 AM EST LABORATORY [facility] POTASSIUM 3.7 3.5 - 5.1 mmol/L 09/06/2024 7:53 AM EST LABORATORY [facility] CHLORIDE 105 98 - 107 mmol/L 09/06/2024 7:53 AM EST LABORATORY [facility] CO2 21(L) 22 - 32 mmol/L 09/06/2024 7:53 AM EST LABORATORY [facility] ANION GAP 11 7 - 15 mmol/L 09/06/2024 7:53 AM EST LABORATORY [facility] GLUCOSE 111 70 - 120 mg/dL 09/06/2024 7:53 AM EST LABORATORY [facility] CALCIUM 8.1(L) 8.4 - 10.2 mg/dL 09/06/2024 7:53 AM EST LABORATORY [facility] Blood Venous blood specimen / Unknown Venipuncture / Unknown 09/06/2024 6:35 AM EST 09/06/2024 6:52 AM EST us Alfreda DAHL LAB BLOOD ORDERABLE S Final Result LABORATORY [facility] [address] [place] [address] * (ABNORMAL) CBC (09/06/2024 6:35 AM EST) WBC 8.64 4.00 - 10.80 K/uL 09/06/2024 7:05 AM EST LABORATORY [facility] RBC 3.54 4.50 - 5.25 M/uL 09/06/2024 7:05 AM EST LABORATORY [facility] HGB 10.0(L) 14.0 - 16.8 g/dL 09/06/2024 7:05 AM EST LABORATORY [facility] HCT 31.1(L) 40.0 - 48.4 % 09/06/2024 7:05 AM EST LABORATORY [facility] MCV 87.9 82.0 - 99.5 fL 09/06/2024 7:05 AM EST LABORATORY [facility] MCH 28.2 27.0 - 34.0 pg 09/06/2024 7:05 AM EST LABORATORY [facility] MCHC 32.2 32.0 - 36.0 g/dL 09/06/2024 7:05 AM EST LABORATORY [facility] RDW 13.2 11.5 - 15.5 % 09/06/2024 7:05 AM EST LABORATORY [facility] PLT 147 140 - 400 K/uL 09/06/2024 7:05 AM EST LABORATORY [facility] MPV 10.8 6.6 - 11.1 fL 09/06/2024 7:05 AM EST LABORATORY [facility] nRBCs 0 <=0 /100 WBCs 09/06/2024 7:05 AM EST LABORATORY [facility] Blood Venous blood specimen / Unknown Venipuncture / Unknown 09/06/2024 6:35 AM EST 09/06/2024 6:52 AM EST Alfreda Thakkar HESHAM LAB BLOOD ORDERABLE S Final Result LABORATORY [facility] [address] [place] [address] * CTA HEAD/CTA NECK (09/05/2024 10:06 PM EST) Anatomical Region Laterality Modality Neck, Head, Cspine, Spine Comput ed Tomography 09/05/2024 10:4 1 PM EST Impressions 09/05/2024 10:38 PM EST IMPRESSION 1. A grossly similar intraparenchymal hemorrhage in the left temporal lobe with surrounding edema, suggestive of NC territory infarct with hemorrhagic transformation. No definite abnormal enhancement or arteriovenous malformation. 2. 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 If there is clinical concern for dissection, consider MR angiography of the neck for further evaluation 3. 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 4. Atherosclerotic disease involving the cavernous internal carotid arteries with resultant [id number] 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 5. Multiple prominent mediastinal lymph nodes, which could represent reactive lymph nodes. Narrative 09/05/2024 10:38 PM EST EXAM CTA HEAD/CTA NECK - 09/05/2024 10:06 pm HISTORY stroke COMPARISON CT HEAD_BRAIN WO CONTRAST, ACC: [id number], dated 2024-09-05 14:24:17; RADIOLOGY EXAM - CT (IMAGES ONLY, NO REPORT), ACC: [id number], dated 2024-09-05 11:06:25 TECHNIQUE Axial images obtained through the head without contrast. CT angiography was performed using thin helical acquisition with dynamic bolus contrast injection of the head and neck, and 2-D and 3-D reconstructed images are provided. FINDINGS CT HEAD WITHOUT CONTRAST: A grossly similar 4.2 x 2.7 cm intraparenchymal hemorrhage is again noted in the left temporal lobe. There is similar surrounding edema in the left temporal lobe and inferior parietal level, suggestive of infarct with hemorrhagic transformation. There is similar mild effacement of the left lateral ventricle. No definite abnormal enhancement or artery venous malformation is seen. Similar chronic infarcts involving the bilateral occipital lobes and bilateral cerebellar hemispheres are again seen. There is global cerebral volume loss. There is no midline or downward shift. No acute osseous abnormality detected. Visualized paranasal sinuses and mastoid air cells are grossly clear. CTA HEAD AND NECK: Arch and mediastinum: Atherosclerotic disease is seen involving the aortic arch and origins of the great vessels without significant luminal stenosis. The aortic arch is of normal caliber and there is normal anatomy of the great vessel origins. Multiple prominent mediastinal lymph nodes are seen. Anterior circulation: On the right side the common carotid artery is of normal caliber. Atherosclerotic disease is seen on the right carotid bifurcation without significant internal carotid artery stenosis. The intracranial segments of the right internal carotid artery show atherosclerotic disease with resultant [id number] luminal stenosis of the right cavernous internal carotid artery. The anterior and middle cerebral arteries are patent, and show no significant stenosis. On the left side, the common carotid artery is of normal caliber. Atherosclerotic disease is seen involving the left carotid bifurcation without significant internal carotid artery stenosis. The intracranial segments of the left internal carotid artery show atherosclerotic disease with resultant mild luminal stenosis of the left cavernous internal carotid artery. The anterior and middle cerebral arteries are patent, and show no significant stenosis. Posterior circulation: There is nonvisualization of the right vertebral artery from its origin and dense atherosclerotic plaque at the origin of the right vertebral artery. Atherosclerotic disease is seen involving the origin of the left vertebral artery with resultant moderate luminal stenosis. The remainder of the left vertebral artery appears patent. The basilar artery is of normal caliber. Both posterior cerebral arteries arise from the basilar tip and are of normal caliber. There is satisfactory enhancement of the dural venous sinuses superficial and deep systems. There is no evidence of aneurysm, vascular malformation. Additional findings: Multilevel degenerate changes are seen in the cervical spine. No acute osseous lesion is detected. No gross mass or adenopathy is detected in the neck. Bilateral small pleural effusions are seen in the visualized upper chest. The lung apices show no suspicious nodules. Procedure Note Tio Banks MD - 09/05/2024 EXAM CTA HEAD/CTA NECK - 09/05/2024 10:06 pm HISTORY stroke COMPARISON CT HEAD_BRAIN WO CONTRAST, ACC: [id number], dated 2024-09-05 14:24:17; RADIOLOGY EXAM - CT (IMAGES ONLY, NO REPORT), ACC: [id number], [id number] 11:06:25 TECHNIQUE Axial images obtained through the head without contrast. CT angiography was performed using thin helical acquisition with dynamicbolus contrast injection of the head and neck, and 2-D and 3-Dreconstructed images are provided. FINDINGS CT HEAD WITHOUT CONTRAST: A grossly similar 4.2 x 2.7 cm intraparenchymal hemorrhage is again notedin the left temporal lobe. There is similar surrounding edema in the lefttemporal lobe and inferior parietal level, suggestive of infarct withhemorrhagic transformation. There is similar mild effacement of the leftlateral ventricle. No definite abnormal enhancement or artery venousmalformation is seen. Similar chronic infarcts involving the bilateral occipital lobes andbilateral cerebellar hemispheres are again seen. There is global cerebralvolume loss. There is no midline or downward shift. No acute osseous abnormality detected. Visualized paranasal sinuses and mastoid air cells are grossly clear. CTA HEAD AND NECK: Arch and mediastinum: Atherosclerotic disease is seen involving the aortic arch and origins ofthe great vessels without significant luminal stenosis. The aortic archis of normal caliber and there is normal anatomy of the great vesselorigins. Multiple prominent mediastinal lymph nodes are seen. Anterior circulation: On the right side the common carotid artery is of normal caliber. Atherosclerotic disease is seen on the right carotid bifurcation withoutsignificant internal carotid artery stenosis. The intracranial segments of the right internal carotid artery showatherosclerotic disease with resultant haej-rg-gjdhezta luminal stenosisof the right cavernous internal carotid artery. The anterior and middle cerebral arteries are patent, and show nosignificant stenosis. On the left side, the common carotid artery is of normal caliber. Atherosclerotic disease is seen involving the left carotid bifurcationwithout significant internal carotid artery stenosis. The intracranial segments of the left internal carotid artery showatherosclerotic disease with resultant mild luminal stenosis of the leftcavernous internal carotid artery. The anterior and middle cerebral arteries are patent, and show nosignificant stenosis. Posterior circulation: There is nonvisualization of the right vertebral artery from its originand dense atherosclerotic plaque at the origin of the right vertebralartery. Atherosclerotic disease is seen involving the origin of the leftvertebral artery with resultant moderate luminal stenosis. The remainderof the left vertebral artery appears patent. The basilar artery is of normal caliber. Both posterior cerebral arteries arise from the basilar tip and are ofnormal caliber. There is satisfactory enhancement of the dural venous sinuses superficialand deep systems. There is no evidence of aneurysm, vascular malformation. Additional findings: Multilevel degenerate changes are seen in the cervical spine. No acuteosseous lesion is detected. No gross mass or adenopathy is detected in the neck. Bilateral small pleural effusions are seen in the visualized upper chest.The lung apices show no suspicious nodules. IMPRESSION IMPRESSION 1. A grossly similar intraparenchymal hemorrhage in the left temporal lobewith surrounding edema, suggestive of NC territory infarct withhemorrhagic transformation. No definite abnormal enhancement orarteriovenous malformation. 2. Nonvisualization of the right vertebral artery from its origin, likelyrepresenting chronic occlusion. If there is clinical concern fordissection, consider MR angiography of the neck for further evaluation 3. Atherosclerotic disease involving the origin of the left vertebralartery with resultant moderate luminal stenosis. 4. Atherosclerotic disease involving the cavernous internal carotidarteries with resultant [id number] luminal stenosis of the rightcavernous internal carotid artery and mild luminal stenosis of the leftcavernous internal carotid artery. 5. Multiple prominent mediastinal lymph nodes, which could representreactive lymph nodes. Richard Alcala MD RAD CT Final Re sult * TEG (THROMBOELASTOGRAPH), HEPARINASE (09/05/2024 2:56 PM EST) [facility] Reaction Time 6.4 2.5 - 8.3 minutes 09/05/2024 4:24 PM EST LABORATORY [facility] Kinetics Time 1.5 0.5 - 3.7 minutes 09/05/2024 4:24 PM EST LABORATORY [facility] Alpha Angle 69.6 46.8 - 78.4 degrees 09/05/2024 4:24 PM EST LABORATORY [facility] Maximum Amplitude 71.5 50.6 - 72.5 mm 09/05/2024 4:24 PM EST LABORATORY [facility] Coagulation Index 1.5 -3.0 - 3.0 09/05/2024 4:24 PM EST LABORATORY [facility] Percent Lysis 30 0.0 0.0 - 7.5 % 025 4:24 PM EST LABORATORY [facility] Blood Venous blood specimen / Unknown Venipuncture / Unknown 09/05/2024 2:56 PM EST 09/05/2024 3:03 PM EST Power Matthews MD LAB BLOOD ORDERABLES Pauly l Result Performing Organization Address City/[facility]/ZIP Co de Phone Number LABORATORY [facility] [address] [place] [address] * TEG (THROMBOELASTOGRAPH) (09/05/2024 2:56 PM EST) Reaction Time 6.2 2.5 - 8.3 minutes 09/05/2024 4:24 PM EST LABORATORY [facility] Kinetics Time 1.5 0.5 - 3.7 minutes 09/05/2024 4:24 PM EST LABORATORY [facility] Alpha Angle 68.6 46.8 - 78.4 degrees 09/05/2024 4:24 PM EST LABORATORY [facility] Maximum Amplitude 69.3 50.6 - 72.5 mm 09/05/2024 4:24 PM EST LABORATORY [facility] Coagulation Index 1.3 -3.0 - 3.0 09/05/2024 4:24 PM EST LABORATORY [facility] Percent Lysis 30 0.2 0.0 - 7.5 % 025 4:24 PM EST LABORATORY [facility] Blood Venous blood specimen / Unknown Venipuncture / Unknown 09/05/2024 2:56 PM EST 09/05/2024 3:03 PM EST Power Matthews MD LAB BLOOD ORDERABLES Pauly l Result LABORATORY [facility] [address], [place] [id number] * RADIOLOGY EXAM - CT (IMAGES ONLY, NO REPORT) (09/05/2024 2:43 PM EST) Narrative Scheduling, Silent - 09/05/2024 2:43 PM EST This is an imaging study not interpreted or resulted by a [facility] or [facility] contracted radiologist. Philip Gabriel MD RAD CT Final Resul t * CT HEAD/BRAIN WO CONTRAST (09/05/2024 2:30 PM EST) Anatomical Region Laterality Modality Head Computed Tomogra phy 09/05/2024 2:56 PM EST Impressions 09/05/2024 3:03 PM EST IMPRESSION: Suspected left MCA-territory ischemic infarction with stable left temporal hemorrhagic conversion and mild local mass effect. MRI would be of benefit for further evaluation. A request to the energy assistant was placed 09/05/2024, 3:02 pm to notify the ordering clinician that the report is available in [facility] for review. I have personally reviewed this examination and agree with the resident/fellow physician's interpretation. Narrative 09/05/2024 3:03 PM EST EXAM: CT HEAD WITHOUT CONTRAST - 09/05/2024 HISTORY: 4.1 x2.8 cm intraparenchymal hematoma in L temporal lobe seen at 0148. Assess progression TECHNIQUE: CT scan of the head was performed without intravenous contrast. COMPARISON: CT head dated 09/05/2024 FINDINGS: Left temporal lobe intraparenchymal hematoma is stable in size from prior examination, measuring approximately 4.1 x 2.7 cm, with mild adjacent subarachnoid hemorrhage. Cytotoxic edema in the adjacent temporal lobe and inferior parietal lobule, consistent with ischemic infarction. Edema and mass effect are stable. Bilateral, right greater than left, occipital encephalomalacia and right cerebellar encephalomalacia, consistent with prior infarcts. No evidence of hydrocephalus. Complete opacification of the left frontal sinus. The mastoid air cells are clear. The calvarium is intact. Procedure Note Jeffry Armendariz MD - 09/05/2024 EXAM: CT HEAD WITHOUT CONTRAST - 09/05/2024 HISTORY: 4.1 x2.8 cm intraparenchymal hematoma in L temporal lobe seen at 0148.Assess progression TECHNIQUE: CT scan of the head was performed without intravenous contrast. COMPARISON: CT head dated 09/05/2024 FINDINGS: Left temporal lobe intraparenchymal hematoma is stable in size from priorexamination, measuring approximately 4.1 x 2.7 cm, with mild adjacentsubarachnoid hemorrhage. Cytotoxic edema in the adjacent temporal lobeand inferior parietal lobule, consistent with ischemic infarction. Edemaand mass effect are stable. Bilateral, right greater than left, occipital encephalomalacia and rightcerebellar encephalomalacia, consistent with prior infarcts. No evidenceof hydrocephalus. Complete opacification of the left frontal sinus. The mastoid air cellsare clear. The calvarium is intact. IMPRESSION IMPRESSION: Suspected left MCA-territory ischemic infarction with stable left temporalhemorrhagic conversion and mild local mass effect. MRI would be ofbenefit for further evaluation. A request to the energy assistant was placed 09/05/2024, 3:02 pm tonotify the ordering clinician that the report is available in [employer] [place]. I have personally reviewed this examination and agree with the resident/fellow physician's interpretation. us Philip Gabriel MD RAD CT Final Resul t * EKG (09/05/2024 2:09 PM EST) 09/05/2024 2:09 PM EST Narrative Procedure Note Meet Watson, - 09/05/2024 2:09 PM EST REASON FOR STUDY: Notify provider if obtaining EKG;Chest pain CONCLUSIONS: Normal sinus rhythm Possible inferior infarct Ventricular Rate: 71 Atrial Rate: 71 VA Interval: 174 QRS Duration: 104 QT/QTc: 434/471 ms P-R-T Vancleve: 45 : 0 : 67 degrees us Power Matthews MD EKG Final Res ult [facility] * ABO/RH (09/05/2024 2:07 PM EST) ABO O 09/05/2024 3:35 PM EST LABORATORY [facility] BLOOD BANK Rh Negative 09/05/2024 3:35 PM EST LABORATORY [facility] BLOOD BANK Blood Venous blood specimen / Unknown Venipuncture / Unknown 09/05/2024 2:07 PM EST 09/05/2024 2:16 PM EST Power Matthews MD LAB BLOOD BANK TEST ORDER MELVIN Final Result LABORATORY [facility] BLOOD BANK [address] [place] [address] * (ABNORMAL) DIFFERENTIAL, AUTOMATED (09/05/2024 2:07 PM EST) WBC 11.61(H) 4.00 - 10.80 K/uL 09/05/2024 2:39 PM EST LABORATORY [facility] Neutrophils % 86.3(H) 40.0 - 75.0 % 09/05/2024 2:39 PM EST LABORATORY [facility] Lymphocytes % 9.0(L) 18.0 - 42.0 % 09/05/2024 2:39 PM EST LABORATORY [facility] Monocytes % 3.4 1.0 - 11.0 % 09/05/2024 2:39 PM EST LABORATORY [facility] Eosinophils % 0.5 0.0 - 6.0 % 09/05/2024 2:39 PM EST LABORATORY [facility] Basophils % 0.3 0.0 - 2.0 % 09/05/2024 2:39 PM EST LABORATORY [facility] Immature Granulocytes % 0.5 0.0 - 2.0 % 09/05/2024 2:39 PM EST LABORATORY [facility] Absolute Neutrophils 10.00(H) 1.80 - 7.70 K/uL 09/05/2024 2:39 PM EST LABORATORY [facility] Absolute Lymphocytes 1.05 1.00 - 4.80 K/ul 09/05/2024 2:39 PM EST LABORATORY [facility] Absolute Monocytes 0.40 0.00 - 1.10 K/uL 09/05/2024 2:39 PM EST LABORATORY [facility] Absolute Eosinophils 0.06 0.00 - 0.70 K/uL 09/05/2024 2:39 PM EST LABORATORY [facility] Absolute Basophils 0.04 0.00 - 0.20 K/uL 09/05/2024 2:39 PM EST LABORATORY [facility] Absolute Immature Granulocytes 0.06 0.00 - 0.20 K/uL 09/05/2024 2:39 PM EST LABORATORY [facility] Blood Venous blood specimen / Unknown Venipuncture / Unknown 09/05/2024 2:07 PM EST 09/05/2024 2:16 PM EST us Power Matthews MD LAB BLOOD ORDERABLES Pauly l Result LABORATORY [facility] [address] [place] [address] * (ABNORMAL) CBC (09/05/2024 2:07 PM EST) Pathologist [facility] [place] WBC 11.61(H) 4.00 - 10.80 K/uL 09/05/2024 2:39 PM EST LABORATORY [facility] RBC 4.04 4.50 - 5.25 M/uL 09/05/2024 2:39 PM EST LABORATORY [facility] HGB 11.6(L) 14.0 - 16.8 g/dL 09/05/2024 2:39 PM EST LABORATORY [facility] HCT 35.6(L) 40.0 - 48.4 % 09/05/2024 2:39 PM EST LABORATORY [facility] MCV 88.1 82.0 - 99.5 fL 09/05/2024 2:39 PM EST LABORATORY [facility] MCH 28.7 27.0 - 34.0 pg 09/05/2024 2:39 PM EST LABORATORY [facility] MCHC 32.6 32.0 - 36.0 g/dL 09/05/2024 2:39 PM EST LABORATORY [facility] RDW 13.0 11.5 - 15.5 % 09/05/2024 2:39 PM EST LABORATORY [facility] PLT 191 140 - 400 K/uL 09/05/2024 2:39 PM EST LABORATORY [facility] MPV 10.7 6.6 - 11.1 fL 09/05/2024 2:39 PM EST LABORATORY [facility] nRBCs 0 <=0 /100 WBCs 09/05/2024 2:39 PM EST LABORATORY [facility] Blood Venous blood specimen / Unknown Venipuncture / Unknown 09/05/2024 2:07 PM EST 09/05/2024 2:16 PM EST us Power Matthews MD LAB BLOOD ORDERABLES Pauly l Result Performing Organization Address City/[facility]/ZIP Co de Phone Number LABORATORY [facility] [address] [place] [address] * TYPE AND SCREEN (09/05/2024 2:07 PM EST) ABO O 09/05/2024 3:12 PM EST LABORATORY [facility] BLOOD BANK Rh Negative 09/05/2024 3:12 PM EST LABORATORY [facility] BLOOD BANK Red Blood Cell Antibody Screen Negative 09/05/2024 3:12 PM EST LABORATORY [facility] BLOOD BANK Specimen Expiration Date 09/08/2024 23:59 09/05/2024 3:12 PM EST LABORATORY [facility] BLOOD BANK Blood Venous blood specimen / Unknown Venipuncture / Unknown 09/05/2024 2:07 PM EST 09/05/2024 2:16 PM EST Power Matthews MD LAB BLOOD BANK TEST ORDER MELVIN Final Result Performing Organization Address [facility] Co de Phone Number LABORATORY [facility] BLOOD BANK [address] [place] [address] * PT INR (09/05/2024 2:07 PM EST) Prothrombin Time 14.3 11.6 - 15.2 seconds 09/05/2024 2:33 PM EST LABORATORY [facility] INR 1.1 0.8 - 1.2 09/05/2024 2:33 PM EST LABORATORY [facility] Blood Venous blood specimen / Unknown Venipuncture / Unknown 09/05/2024 2:07 PM EST 09/05/2024 2:16 PM EST Narrative LABORATORY [facility] - 09/05/2024 2:33 PM EST Warfarin Therapy INR: 2.0-3.0 conventional anticoagulation INR: 2.5-3.5 high intensity anticoagulation Power Matthews MD LAB BLOOD ORDERABLES Pauly l Result Performing Organization Address City/[facility]/ZIP Co de Phone Number LABORATORY [facility] [address] [place] [address] * APTT (09/05/2024 2:07 PM EST) aPTT 30 21 - 38 seconds 09/05/2024 2:34 PM EST LABORATORY [facility] Blood Venous blood specimen / Unknown Venipuncture / Unknown 09/05/2024 2:07 PM EST 09/05/2024 2:16 PM EST Narrative LABORATORY [facility] - 09/05/2024 2:34 PM EST Anticoagulation may affect testing. Refer to [employer] [facility] for a list of effects. Power Matthews MD LAB BLOOD ORDERABLES Pauly l Result LABORATORY [facility] [address] [place] [address] * HEPATIC FUNCTION PANEL (09/05/2024 2:07 PM EST) Albumin 4.1 3.8 - 5.0 g/dL 09/05/2024 3:00 PM EST LABORATORY [facility] AST 17 10 - 50 U/L 09/05/2024 3:00 PM EST LABORATORY [facility] Comment:Results may be false ly elevated due to hemolysis. Alkaline Phosphatase 85 35 - 130 U/L 09/05/2024 3:00 PM EST LABORATORY [facility] ALT 15 10 - 50 U/L 09/05/2024 3:00 PM EST LABORATORY [facility] Bilirubin, Total 0.6 <=1.2 mg/dL 09/05/2024 3:00 PM EST LABORATORY [facility] Bilirubin, Direct 0.2 0.0 - 0.3 mg/dL 09/05/2024 3:00 PM EST LABORATORY [facility] Comment:Result may be falsel y decreased due to hemolysis. Protein 6.8 6.0 - 8.3 g/dL 09/05/2024 3:00 PM EST LABORATORY [facility] Blood Venous blood specimen / Unknown Venipuncture / Unknown 09/05/2024 2:07 PM EST 09/05/2024 2:16 PM EST Power Matthews MD LAB BLOOD ORDERABLES Pauly l Result Performing Organization Address City/[facility]/ZIP Co de Phone Number LABORATORY [facility] [address] [place] [address] * CALCIUM, IONIZED, WHOLE BLOOD (09/05/2024 2:07 PM EST) Calcium, Ionized 1.14 1.13 - 1.32 mmol/L 09/05/2024 2:20 PM EST LABORATORY [facility] Blood Venous blood specimen / Unknown Venipuncture / Unknown 09/05/2024 2:07 PM EST 09/05/2024 2:15 PM EST us Power Matthews MD LAB BLOOD ORDERABLES Pauly l Result Performing Organization Address [facility] Co de Phone Number LABORATORY [facility] [address] [place] [address] * MAGNESIUM (09/05/2024 2:07 PM EST) Magnesium 1.9 1.5 - 2.6 mg/dL 09/05/2024 3:00 PM EST LABORATORY [facility] Blood Venous blood specimen / Unknown Venipuncture / Unknown 09/05/2024 2:07 PM EST 09/05/2024 2:16 PM EST us Power Matthews MD LAB BLOOD ORDERABLES Pauly l Result Performing Organization Address [facility] Co de Phone Number LABORATORY [facility] [address] [place] [address] * PHOSPHORUS (09/05/2024 2:07 PM EST) Phosphorus 3.3 2.5 - 4.8 mg/dL 09/05/2024 3:00 PM EST LABORATORY [facility] Blood Venous blood specimen / Unknown Venipuncture / Unknown 09/05/2024 2:07 PM EST 09/05/2024 2:16 PM EST us Power Matthews MD LAB BLOOD ORDERABLES Pauly l Result LABORATORY [facility] [address] [place] [address] * (ABNORMAL) BASIC METABOLIC PANEL (09/05/2024 2:07 PM EST) [facility] BUN 20 6 - 20 mg/dL 09/05/2024 3:00 PM EST LABORATORY [facility] CREATININE 1.7(H) 0.6 - 1.2 mg/dL 09/05/2024 3:00 PM EST [facility] EGFR 39(L) >=60 mL/min 09/05/2024 3:00 PM EST [facility] Comment:eGFR is calculated b ased on the CKD-EPI 2020 equation. SODIUM 136 135 - 146 mmol/L 09/05/2024 3:00 PM EST [facility] POTASSIUM 4.3 3.5 - 5.1 mmol/L 09/05/2024 3:00 PM EST [facility] CHLORIDE 102 98 - 107 mmol/L 09/05/2024 3:00 PM EST [facility] CO2 20(L) 22 - 32 mmol/L 09/05/2024 3:00 PM EST [facility] ANION GAP 14 7 - 15 mmol/L 09/05/2024 3:00 PM EST [facility] GLUCOSE 169(H) 70 - 120 mg/dL 09/05/2024 3:00 PM EST [facility] CALCIUM 8.8 8.4 - 10.2 mg/dL 09/05/2024 3:00 PM EST [facility] Blood Venous blood specimen / Unknown Venipuncture / Unknown 09/05/2024 2:07 PM EST 09/05/2024 2:16 PM EST us Power Matthews MD LAB BLOOD ORDERABLES Pauly l Result LABORATORY [facility] [address] [place] [address] * MRSA SCREEN, PCR (09/05/2024 1:57 PM EST) [facility] MRSA PCR Result Negative Negative 3:25 PM EST [facility] Comment:No Methicillin resis tant Staphylococcus aureus detected by PCR (amplified probe). Upper Respiratory Swab of internal nose / Unknown Non-blood Collection / Unknown 09/05/2024 1:57 PM EST 09/05/2024 2:07 PM EST Power Matthews MD LAB MICRO - GENERAL ORDER MELVIN Final Result LABORATORY [facility] [address] [place] [address] documented in this encounter Visit Diagnoses Diagnosis Intraparenchymal hemorrhage of brain (HCC)- Primary Intracerebral hemorrhage Intracranial hemorrhage (HCC) Unspecified intracranial hemorrhage Chest pain Chest pain, unspecified Stroke (HCC) Unspecified cerebral artery occlusion with cerebral infarction 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 Exposure to other specified factors, initial encounter Intraparenchymal hemorrhage of brain (HCC) Intracerebral hemorrhage Electrolyte abnormality Electrolyte and fluid disorders not elsewhere classified Disorder of brain, unspecified Cerebral edema (HCC) Cerebral edema Other abnormal findings on diagnostic imaging of central nervous system Abnormal ankle brachial index (JENN) Chronic pulmonary edema Pulmonary congestion and hypostasis Shortness of breath Dependence on supplemental oxygen Abnormal findings on diagnostic imaging of other specified body structures Other nonspecific abnormal finding of lung field Stage 3 chronic kidney disease, unspecified whether stage 3a or 3b CKD (HCC) Atrial fibrillation with RVR (HCC) Atrial fibrillation Stroke-like symptoms Other symptoms involving nervous and musculoskeletal systems Ac isch multi vasc territories stroke (HCC) Unspecified cerebral artery occlusion with cerebral infarction HFrEF (heart failure with reduced ejection fraction) (HCC) Dyslipidemia, goal LDL below 70 Other and unspecified hyperlipidemia Delirium due to multiple etiologies, acute, hyperactive Encephalopathy acute Encephalopathy, unspecified History of CAD (coronary artery disease) Pulmonary edema Pulmonary congestion and hypostasis Heart failure, systolic, with acute decompensation (HCC) Acute on chronic systolic heart failure Atrial fibrillation with RVR (HCC) Atrial fibrillation Atrial fibrillation (HCC) Atrial fibrillation Acute respiratory failure with hypoxia (HCC) Acute respiratory failure Depression Depressive disorder, not elsewhere classified documented in this encounter Administered Medications Inactive Administered Medications - up to 3 most recent administrations Medication Order MAR Action Action Date Dose Rate Site Acetaminophen (Ofirmev) inj 1,000 mg 1,000 mg, Intravenous, Q8H, 4 doses, First dose on Thu09/05/24 at 1430, Last dose on Thu09/06/24 at 1400, Administer over 15 Minutes, Administer undiluted over 15 minutes! NOTE: Maximum of 4000 mg per 24 hours of acetaminophen from all acetaminophen containing products., Indication: Patient is strictly NPO New Bag 09/06/2024 2:27 PM EST 1,000 mg 400 mL/hr New Bag 09/06/2024 5:08 AM EST 1,000 mg 400 mL/hr New Bag 09/05/2024 9:17 PM EST 1,000 mg 400 mL/hr Acetaminophen (Tylenol) tab 650 mg 650 mg, Oral, Q6H PRN Fever >38C(100.5F), Starting on Thu09/11/24 at 0405, Until Thu09/21/24 at 1436, Maximum of 4 grams (4000 mg) per day. Given 09/16/2024 8:06 PM EST 650 mg Given 09/12/2024 12:46 AM EST 650 mg Given 09/11/2024 4:22 AM EST 650 mg albuterol-ipratropium (Duoneb) inhalation solution 3 mL 3 mL, Nebulizer, Q4H PRN Dyspnea, Starting on Thu09/07/24 at 1457, Until Thu09/21/24 at 1436, 3 mL = 0.5 mg ipratropium/ 2.5 mg albuterol Given 09/11/2024 11:28 PM EST 3 mL Given 09/08/2024 11:29 AM EST 3 mL Given 09/07/2024 3:02 PM EST 3 mL amLODIPine (Norvasc) tab 5 mg 5 mg, Oral, Daily(AM), First dose (after last modification) on Thu09/07/24 at 1645, Until Discontinued Given 09/07/2024 5:36 PM EST 5 mg amLODIPine (Norvasc) tab 5 mg 5 mg, Oral, Daily(AM), First dose on Thu09/10/24 at 1315, Until Discontinued Given 09/10/2024 1:21 PM EST 5 mg aspirin chew tab 81 mg 81 mg, Oral, Daily(AM), First dose on Thu09/12/24 at 1330, Until Discontinued Given 09/18/2024 9:20 AM EST 81 mg Given 09/17/2024 9:39 AM EST 81 mg Given 09/16/2024 8:34 AM EST 81 mg aspirin chew tab 81 mg 81 mg, Oral, Daily(AM), First dose (after last modification) on Thu09/19/24 at 0900, Until Discontinued Given 09/21/2024 8:37 AM EST 81 mg Given 09/20/2024 9:51 AM EST 81 mg Given 09/19/2024 9:02 AM EST 81 mg atorvaSTATin (Lipitor) tab 40 mg 40 mg, Oral, Q1700, First dose on Thu09/07/24 at 1700, Until Discontinued Given 09/07/2024 3:53 PM EST 40 mg Benzonatate (Tessalon Perles) cap 100 mg 100 mg, Oral, Q8H PRN Cough, Starting on Thu09/07/24 at 1307, Until Thu09/21/24 at 1436, This med should NOT be Crushed or Chewed Given 09/11/2024 8:34 PM EST 100 mg Given 09/11/2024 8:47 AM EST 100 mg chlorHEXIDINE (Periogard) 0.12 % oral rinse 15 mL 15 mL, Oral mucosal membrane, BID (799,1999), First dose on Thu09/05/24 at 2000, Until Discontinued, Include oral/gum/tooth brushing with medication. Use prepackaged oral kit suction tooth brush if available. Given 09/11/2024 8:14 PM EST 15 mL Given 09/11/2024 8:03 AM EST 15 mL Given 09/10/2024 8:13 PM EST 15 mL citalopram (Celexa) oral soln 10 mg 10 mg, Oral, Daily(AM), First dose on Thu09/07/24 at 1345, Until Discontinued Given 09/07/2024 2:43 PM EST 10 mg citalopram (Celexa) oral soln 10 mg 10 mg, Oral, Daily(AM), First dose (after last reorder) on 09/10/24 at 1315, Until Discontinued Given 09/14/2024 8:46 AM EST 10 mg Given 09/13/2024 8:42 AM EST 10 mg Given 09/12/2024 8:45 AM EST 10 mg cycloSPORINE (Restasis) 0.05 % ophthalmic emulsion 1 Drop 1 Drop, Both eyes, BID (.AM/PM), First dose on Thu09/06/24 at 2100, Until Discontinued Given 09/21/2024 9:00 AM EST 1 Drop Given 09/20/2024 7:52 PM EST 1 Drop Given 09/20/2024 9:00 AM EST 1 Drop dexmedeTOMIDine (Precedex) 400 mcg in 100 mL infusion Order Mode: Standard Titration, Starting Rate (mcg/kg/hr): 0.2, Infusion Titration Adjustments: Increase or decrease by up to 0.2 mcg/kg/hr no more frequently than every 15 minutes to maintain specified goal RASS, Maximum Dose: 1.5 mcg/kg/hr, Patient Transfer: Patient should be transferred to a higher level of care if rate exceeds nursing unit specific guidelines., Notes to Nursing: Caution in BRADYcardia and HYPOtension. Reorient the patient, assess and treat pain separately. Abort acute agitation by seeking provider assistance., 0-1.5 mcg/kg/hr 96.2 kg (0-36.075 mL/hr, rounded to 0-36.08 mL/hr), RASS goal -2 Please select this medication from the infusion pump library, TITRATE, Starting on Thu09/07/24 at 1945, Until Thu09/07/24 at 1936, Intravenous New Bag 09/07/2024 7:27 PM EST 1 mcg/kg/hr 24.05 mL/hr dexmedeTOMIDine (Precedex) 400 mcg in 100 mL infusion Order Mode: Standard Titration, Starting Rate (mcg/kg/hr): 0.2, Infusion Titration Adjustments: Increase or decrease by up to 0.2 mcg/kg/hr no more frequently than every 15 minutes to maintain specified goal RASS, Maximum Dose: 1.5 mcg/kg/hr, Patient Transfer: Patient should be transferred to a higher level of care if rate exceeds nursing unit specific guidelines., Notes to Nursing: Caution in BRADYcardia and HYPOtension. Reorient the patient, assess and treat pain separately. Abort acute agitation by seeking provider assistance., 0-1.5 mcg/kg/hr 96.2 kg (0-36.075 mL/hr, rounded to 0-36.08 mL/hr), Please select this medication from the infusion pump library, TITRATE, Starting on Thu09/07/24 at 2015, Until Ca 09/08/24 at 1008, Intravenous Rate Change 09/08/2024 10:06 AM EST 0.1 mcg/kg/hr 2.4 mL/hr Rate Verify 09/08/2024 9:00 AM EST 0.2 mcg/kg/hr 4.81 mL/h r Rate Verify 09/08/2024 7:00 AM EST 0.2 mcg/kg/hr 4.81 mL/h r dexmedeTOMIDine (Precedex) 400 mcg in 100 mL infusion Order Mode: Standard Titration, Starting Rate (mcg/kg/hr): 0.2, Infusion Titration Adjustments: Increase or decrease by up to 0.2 mcg/kg/hr no more frequently than every 15 minutes to maintain specified goal RASS, Maximum Dose: 1.5 mcg/kg/hr, Patient Transfer: Patient should be transferred to a higher level of care if rate exceeds nursing unit specific guidelines., Notes to Nursing: Caution in BRADYcardia and HYPOtension. Reorient the patient, assess and treat pain separately. Abort acute agitation by seeking provider assistance., 0-1.5 mcg/kg/hr 96.2 kg (0-36.075 mL/hr, rounded to 0-36.08 mL/hr), Please select this medication from the infusion pump library, TITRATE, Starting on Ca 09/08/24 at 1630, Until 09/10/24 at 1915, Intravenous Rate Change 09/10/2024 9:16 AM EST 0.3 mcg/kg/hr 7.21 mL/hr New Bag 09/10/2024 9:12 AM EST 0.4 mcg/kg/hr 9.62 mL/hr Rate Verify 09/10/2024 7:00 AM EST 0.6 mcg/kg/hr 14.43 mL/ hr dextrose 50% inj 25 mL 25 mL, IV Push, PRN Hypoglycemia, Other, For blood glucose 54 - 69 mg/dL or 70 - 100 mg/dL with symptoms AND patient is unresponsive, NPO, OR unable to swallow, Starting on Ca 09/08/24 at 1002, Until 09/21/24 at 1436, Administer IV. Recheck blood glucose after 15 minutes. Notify provider. dextrose 50% inj 50 mL 50 mL, IV Push, PRN Hypoglycemia, Other, For blood glucose below 54 mg/dL AND patient unresponsive, NPO, OR unable to swallow, Starting on Ca 09/08/24 at 1002, Until 09/21/24 at 1436, Administer IV. Recheck blood glucose in 15 minutes. Notify provider. Digoxin (Lanoxin) 0.25 MG/ML inj 250 mcg 250 mcg, IV Push, Q6H, First dose on Ca 09/15/24 at 1800, Last dose on Thu09/16/24 at 0000, For 2 doses, NOTE CONC: 250 MCG/ML PROTECT FROM LIGHT Given 09/15/2024 11:45 PM EST 250 mcg Given 09/15/2024 6:42 PM EST 250 mcg Digoxin (Lanoxin) 0.25 MG/ML inj 500 mcg 500 mcg, IV Push, ONCE, On Ca 09/15/24 at 1145, For 1 dose, NOTE CONC: 250 MCG/ML PROTECT FROM LIGHT Given 09/15/2024 1:02 PM EST 500 mcg Digoxin (Lanoxin) tab 125 mcg 125 mcg, Oral, Daily(AM), First dose on Thu09/16/24 at 1415, Until Discontinued, Hold For HR Less than 60 and notify service if dose is held Given 09/21/2024 8:37 AM EST 125 mcg Given 09/20/2024 9:51 AM EST 125 mcg Given 09/19/2024 9:02 AM EST 125 mcg dilTIAZem (Cardizem) immediate release tab 30 mg 30 mg, Oral, Q6H, First dose on Thu09/10/24 at 1800, Until Discontinued, Hold for HR less than 60 or SBP below 100 and notify service if dose is held Given 09/11/2024 5:29 AM EST 30 mg Given 09/11/2024 1:01 AM EST 30 mg Given 09/10/2024 6:12 PM EST 30 mg dilTIAZem (Cardizem) immediate release tab 60 mg 60 mg, Oral, Q6H, First dose (after last modification) on Thu09/11/24 at 1200, Until Discontinued, Hold for HR less than 60 or SBP below 100 and notify service if dose is held Given 09/12/2024 1:02 PM EST 60 mg Given 09/12/2024 5:25 AM EST 60 mg Given 09/12/2024 12:46 AM EST 60 mg Divalproex (Depakote Sprinkle) delayed release capsule 125 mg 125 mg, Oral, Q8H PRN Other, agitation, Starting on Thu09/14/24 at 1232, Until Thu09/21/24 at 1436, Swallow the capsule or tablet whole. Do not crush, break or chew it. You may open the sprinkle capsule and mix the medicine beads with a small amount (about a spoonful) of soft food such as applesauce or pudding. Swallow the mixture whole. Given 09/20/2024 9:20 PM EST 125 mg Given 09/19/2024 11:44 PM EST 125 mg Given 09/18/2024 8:19 PM EST 125 mg Docusate Sodium (Colace) oral liquid 100 mg 100 mg, Oral, BID (.AM/PM), First dose on Thu09/09/24 at 2100, Until Discontinued Given 09/16/2024 8:33 AM EST 100 mg Given 09/15/2024 10:08 PM EST 100 mg Given 09/15/2024 9:58 AM EST 100 mg Docusate Sodium (Colace) oral liquid 100 mg 100 mg, Oral, Daily(AM), First dose (after last modification) on Thu09/17/24 at 0900, Until Discontinued Given 09/21/2024 8:37 AM EST 100 mg Given 09/20/2024 9:51 AM EST 100 mg Given 09/19/2024 9:03 AM EST 100 mg dorzolamide (Trusopt Ocumeter Plus) 2 % ophthalmic solution 1 Drop 1 Drop, Both eyes, BID (.AM/PM), First dose on Thu09/07/24 at 2100, Until Discontinued Given 09/21/2024 9:00 AM EST 1 Drop Given 09/20/2024 9:51 AM EST 1 Drop Given 09/19/2024 9:37 PM EST 1 Drop Famotidine (Pepcid) inj 20 mg 20 mg, IV Push, Q12H, First dose on Thu09/05/24 at 2100, Until Discontinued, Give IV push over 2 minutes. Given 09/06/2024 10:22 AM EST 20 mg Given 09/05/2024 9:18 PM EST 20 mg Famotidine (Pepcid) inj 20 mg 20 mg, IV Push, Daily(AM), First dose (after last modification) on Thu09/07/24 at 0900, Until Discontinued, Give IV push over 2 minutes. Given 09/07/2024 9:41 AM EST 20 mg Finasteride (Proscar) tab 5 mg 5 mg, Oral, Daily(AM), First dose on Thu09/07/24 at 1345, Until Discontinued Given 09/07/2024 2:38 PM EST 5 mg Finasteride (Proscar) tab 5 mg 5 mg, Oral, Daily(AM), First dose on 09/10/24 at 1315, Until Discontinued Given 09/21/2024 8:37 AM EST 5 mg Given 09/20/2024 9:51 AM EST 5 mg Given 09/19/2024 9:02 AM EST 5 mg Furosemide (Lasix) inj 20 mg 20 mg, IV Push, ONCE, On Thu09/12/24 at 0000, For 1 dose Given 09/11/2024 11:34 PM EST 20 mg Furosemide (Lasix) inj 40 mg 40 mg, IV Push, ONCE, On Ca 09/08/24 at 1215, For 1 dose Given 09/08/2024 11:36 AM EST 40 mg Furosemide (Lasix) inj 40 mg 40 mg, IV Push, ONCE, On 09/10/24 at 0415, For 1 dose Given 09/10/2024 3:42 AM EST 40 mg Furosemide (Lasix) inj 40 mg 40 mg, IV Push, BID (0900, 1600), First dose on Thu09/12/24 at 0900, Until Discontinued Given 09/15/2024 9:58 AM EST 4 0 mg Given 09/14/2024 8:44 AM EST 40 mg Given 09/13/2024 5:05 PM EST 40 mg Furosemide (Lasix) tab 40 mg 40 mg, Oral, Daily(AM), First dose on Thu09/16/24 at 0900, Until Discontinued Given 09/21/2024 8:37 AM EST 40 mg Given 09/20/2024 9:51 AM EST 40 mg Given 09/19/2024 9:02 AM EST 40 mg gadobutrol (Gadavist) inj 9.8 mL 9.8 mL (rounded from 9.78 mL = 0.1 mL/kg 97.8 kg), Intravenous, ONCE, On Tu09/06/24 at 1045, For 1 dose, Radiology Medication Routing (Non-IR) Given 09/06/2024 10:45 AM EST 9.8 mL glucagon (Glucagen) inj 1 mg 1 mg, Intramuscular, PRN Hypoglycemia, Other, If patient is unresponsive, or NPO and has no IV access, Starting on Thu09/08/24 at 1002, Until Thu09/21/24 at 1436, NPO and no IV access with either 1) blood glucose less than 100 mg/dL and symptomatic OR 2) blood glucose less than 70 mg/dL and asymptomatic Glucose (Glutose 15) 40 % gel 15 g of glucose 15 g of glucose, Oral, PRN Hypoglycemia (low sugar), Other, For blood glucose 54 - 69 mg/dL or 70 - 100 mg/dL with symptoms AND patient alert WITH difficulty chewing/swallowing, Starting on Thu09/08/24 at 1002, Until Thu09/21/24 at 1436, Administer gel. Recheck blood glucose after 15 minutes. Notify provider. 37.5 gram tube = 15 grams glucose = 1 each Glucose (Glutose 15) 40 % gel 30 g of glucose 30 g of glucose, Oral, PRN Hypoglycemia (low sugar), Other, For blood glucose below 54 mg/dL AND patient alert WITH difficulty chewing/swallowing, Starting on Thu09/08/24 at 1002, Until Thu09/21/24 at 1436, Administer gel. Recheck blood glucose after 15 minutes. Notify provider. 37.5 gram tube = 15 grams glucose = 1 each glucose chew tab 16 g 16 g, Oral, PRN Hypoglycemia, Other, For blood glucose 54 - 69 mg/dL or 70 - 100 mg/dL with symptoms and patient alert without difficulty chewing/swallowing., Starting on Thu09/08/24 at 1002, Until Thu09/21/24 at 1436 Haloperidol Lactate (Haldol) 5 MG/ML inj 1 mg 1 mg, IV Push, Q8H PRN Agitation, Starting on Thu09/14/24 at 1211, Until Thu09/21/24 at 1436 Given 09/18/2024 9:24 PM EST 1 mg Given 09/17/2024 10:16 PM EST 1 mg Given 09/17/2024 3:29 AM EST 1 mg Haloperidol Lactate (Haldol) 5 MG/ML inj 5 mg 5 mg, IV Push, ONCE, On Thu09/07/24 at 2000, For 1 dose Given 09/07/2024 7:25 PM EST 5 mg hEParin inj 5,000 Units 5,000 Units, Subcutaneous, Q8H, First dose on Thu09/06/24 at 1400, Until Discontinued Given 09/17/2024 2:16 PM EST 5,000 Units Abdomen Left Lower Given 09/17/2024 5:04 AM EST 5,000 Units A bdomen Right Lower Given 09/16/2024 10:24 PM EST 5,000 Units Abdomen Left Lower hEParin inj 5,000 Units 5,000 Units, Subcutaneous, Q8H, First dose (after last modification) on 09/17/24 at 2100, Until Discontinued Given 09/21/2024 5:18 AM EST 5,000 Units Abdomen Left Upper Given 09/20/2024 7:51 PM EST 5,000 Units A bdomen Right Lower Given 09/20/2024 2:00 PM EST 5,000 Units A bdomen Left Upper insulin aspart (NovoLOG) inj Subcutaneous, W/MEALS AND HS, First dose on Ca 09/08/24 at 1200, Until Discontinued, MEDIUM DOSE (Usual starting dose): Sliding Scale Correctional insulin may be given if the patient is NPO. Dose based on standard build from Insulin Calculator. Do not modify insulin doses in administration instructions!, Glucose less than 70 instructions: Obtain STAT lab blood glucose and call covering provider., Glucose 80-150 (units): 0, Glucose 151-200 (units): 2, Glucose 201-250 (units): 4, Glucose 251-300 (units): 6, Glucose greater than 300 (units): 8, Glucose greater than 300 instructions: Give suggested insulin dose and call covering provider. Given 09/09/2024 8:25 AM EST 2 Units Abdomen Left Upper Given 09/08/2024 9:47 PM EST 2 Units Ab domen Left Upper insulin aspart (NovoLOG) inj Subcutaneous, Q6H, First dose (after last modification) on 09/10/24 at 0000, Until Discontinued, MEDIUM DOSE (Usual starting dose): Sliding Scale Correctional insulin may be given if the patient is NPO. Dose based on standard build from Insulin Calculator. Do not modify insulin doses in administration instructions!, Glucose less than 70 instructions: Obtain STAT lab blood glucose and call covering provider., Glucose 80-150 (units): 0, Glucose 151-200 (units): 2, Glucose 201-250 (units): 4, Glucose 251-300 (units): 6, Glucose greater than 300 (units): 8, Glucose greater than 300 instructions: Give suggested insulin dose and call covering provider. Given 09/10/2024 12:06 PM EST 2 Units Deltoid Left Lower insulin aspart (NovoLOG) inj Subcutaneous, W/MEALS AND HS, First dose (after last modification) on Thu09/11/24 at 1200, Until Discontinued, MEDIUM DOSE (Usual starting dose): Sliding Scale Correctional insulin may be given if the patient is NPO. Dose based on standard build from Insulin Calculator. Do not modify insulin doses in administration instructions!, Glucose less than 70 instructions: Obtain STAT lab blood glucose and call covering provider., Glucose 80-150 (units): 0, Glucose 151-200 (units): 2, Glucose 201-250 (units): 4, Glucose 251-300 (units): 6, Glucose greater than 300 (units): 8, Glucose greater than 300 instructions: Give suggested insulin dose and call covering provider. Given 09/20/2024 5:35 PM EST 2 Units Arm Right Upper Given 09/20/2024 12:22 PM EST 2 Units A rm Left Upper Given 09/19/2024 6:07 PM EST 2 Units Ab domen Left Lower Iopamidol (Isovue 370) inj 65 mL 65 mL, Intravenous, ONCE, On Thu09/05/24 at 2245, For 1 dose, Radiology Medication Routing (Non-IR) Given 09/05/2024 10:45 PM EST 65 mL Iron Sucrose (Venofer) 300 mg in NSS 250 mL ivpb 300 mg, IV Piggyback, Daily(AM), 3 doses, First dose on Thu09/13/24 at 0900, Last dose on Thu09/15/24 at 0900, Administer over 90 Minutes New Bag 09/15/2024 11:49 AM EST 300 mg 180 mL/hr New Bag 09/14/2024 9:00 AM EST 300 mg 180 mL/hr New Bag 09/13/2024 8:54 AM EST 300 mg 180 mL/hr Isolyte-S pH 7.4 infusion Intravenous, at 75 mL/hr, Plasma-LYTE 148, isolyte-S, and isolyte-S pH 7.4 are considered equivalent - including for MAR barcode scanning., CONTINUOUS, Starting on Thu09/05/24 at 1430, Until Thu09/07/24 at 1212 Rate Verify 09/07/2024 5:00 AM EST 75 mL/hr Rate Verify 09/07/2024 4:00 AM EST 75 mL/hr Rate Verify 09/07/2024 3:00 AM EST 75 mL/hr Isolyte-S pH 7.4 infusion Intravenous, at 50 mL/hr, Plasma-LYTE 148, isolyte-S, and isolyte-S pH 7.4 are considered equivalent - including for MAR barcode scanning., CONTINUOUS, Starting on Thu09/07/24 at 2000, Until Thu09/08/24 at 1000 Rate Verify 09/08/2024 9:00 AM EST 50 mL/hr Rate Verify 09/08/2024 5:00 AM EST 50 mL/hr Rate Verify 09/08/2024 4:00 AM EST 50 mL/hr Isolyte-S pH 7.4 infusion Intravenous, at 50 mL/hr, Plasma-LYTE 148, isolyte-S, and isolyte-S pH 7.4 are considered equivalent - including for MAR barcode scanning., CONTINUOUS, Starting on Thu09/08/24 at 1045, Until Thu09/09/24 at 1941 Restarted 09/08/2024 11:21 AM EST 50 mL/hr New Order/Same Bag 09/08/2024 10:59 AM EST 50 m L/hr labetalol (Trandate) inj 10 mg 10 mg, Intravenous, Q1H PRN Hypertension, for SBP>140, give only if HR>70, Starting on Thu09/05/24 at 1405, Until Thu09/07/24 at 1001 Given 09/07/2024 3:18 AM EST 1 0 mg Given 09/06/2024 4:17 AM EST 10 mg Given 09/06/2024 3:17 AM EST 10 mg labetalol (Trandate) inj 10 mg 10 mg, Intravenous, Q1H PRN Hypertension, for SBP>140, give only if HR>60, use as first line agent, Starting on Thu09/07/24 at 1000, Until Thu09/07/24 at 1311 Given 09/07/2024 12:02 PM EST 10 mg labetalol (Trandate) inj 10 mg 10 mg, Intravenous, Q1H PRN Hypertension, SBP >160, Starting on Thu09/07/24 at 1815, Until Thu09/21/24 at 1436 Given 09/18/2024 3:11 AM EST 10 mg Given 09/16/2024 8:52 AM EST 10 mg Given 09/15/2024 10:16 PM EST 10 mg labetalol (Trandate) inj 10 mg 10 mg, Intravenous, ONCE, On Thu09/10/24 at 0330, For 1 dose Given 09/10/2024 2:58 AM EST 10 mg levETIRAcetam (Keppra) 500 mg in 100 mL ivpb *LOCKED DOSE* 500 mg, IV Piggyback, BID (.AM/PM), First dose on Thu09/06/24 at 0900, Until Discontinued, at 600 mL/hr Administer over 10 Minutes Restarted 09/07/2024 12:00 PM EST 3,000 mg/hr 600 mL/hr New 09/07/2024 9:45 AM EST 500 mg 600 mL/hr New 09/06/2024 9:30 PM EST 500 mg 600 mL/hr levETIRAcetam (Keppra) 500 mg in 100 mL ivpb *LOCKED DOSE* 500 mg, IV Piggyback, BID (.AM/PM), First dose on Thu09/07/24 at 2100, Until Discontinued, at 600 mL/hr Administer over 10 Minutes New 09/09/2024 8:30 AM EST 500 mg 600 mL/hr New 09/08/2024 9:40 PM EST 500 mg 600 mL/hr New 09/08/2024 8:01 AM EST 500 mg 600 mL/hr levETIRAcetam (Keppra) 500 mg in 100 mL ivpb *LOCKED DOSE* 500 mg, IV Piggyback, BID (.AM/PM), First dose on Thu09/09/24 at 2100, Until Discontinued, at 600 mL/hr Administer over 10 Minutes New 09/10/2024 8:19 PM EST 500 mg 600 mL/hr New 09/10/2024 9:19 AM EST 500 mg 600 mL/hr New 09/09/2024 7:44 PM EST 500 mg 600 mL/hr levETIRAcetam (Keppra) tab 500 mg 500 mg, Oral, BID (.AM/PM), First dose on Thu09/11/24 at 0900, Until Discontinued Given 09/11/2024 8:03 AM EST 500 mg Lisinopril (Prinivil) tab 10 mg 10 mg, Oral, Daily(AM), First dose (after last modification) on Thu09/12/24 at 0900, Until Discontinued Given 09/21/2024 8:37 AM EST 10 mg Given 09/20/2024 9:51 AM EST 10 mg Given 09/19/2024 9:02 AM EST 10 mg Lisinopril (Prinivil) tab 5 mg 5 mg, Oral, Daily(AM), First dose on 09/10/24 at 1315, Until Discontinued Given 09/11/2024 8:03 AM EST 5 mg Given 09/10/2024 1:21 PM EST 5 mg LORazepam (Ativan) inj 1 mg 1 mg, IV Push, ONCE PRN Agitation, Starting on Thu09/06/24 at 0903, Until Thu09/06/24 at 0925, For 1 dose, MUST FURTHER DILUTE FOR IV PUSH WITH EQUAL VOLUME OF NSS Given 09/06/2024 9:25 AM EST 1 mg LORazepam (Ativan) inj 1 mg 1 mg, IV Push, ONCE, On Thu09/11/24 at 2200, For 1 dose, MUST FURTHER DILUTE FOR IV PUSH WITH EQUAL VOLUME OF NSS Given 09/11/2024 9:23 PM EST 1 mg magnesium sulfate 1 g in d5w 100mL LOCKED DOSE 1 g, IV Piggyback, Q1H, 2 doses, First dose on Thu09/06/24 at 1300, Last dose on Thu09/06/24 at 1400, Administer over 60 Minutes, Total dose is 2g Rate Verify 09/06/2024 4:00 PM EST 1 g/hr 100 mL/hr Restarted 09/06/2024 3:32 PM EST 1 g/hr 100 mL/hr Rate Verify 09/06/2024 3:00 PM EST 1 g/hr 100 mL/hr magnesium sulfate 1 g in d5w 100mL LOCKED DOSE 1 g, IV Piggyback, ONCE, 1 dose, On 09/10/24 at 0745, Administer over 60 Minutes Restarted 09/10/2024 7:30 AM EST 1 g/hr 100 mL/hr New Bag 09/10/2024 7:22 AM EST 1 g 100 mL/hr magnesium sulfate 1 g in d5w 100mL LOCKED DOSE 1 g, IV Piggyback, Q1H, 2 doses, First dose on Thu09/11/24 at 1100, Last dose on Thu09/11/24 at 1200, Administer over 60 Minutes, Total dose is 2g New Bag 09/11/2024 12:10 PM EST 1 g 100 mL/hr New Bag 09/11/2024 10:50 AM EST 1 g 100 mL/hr magnesium sulfate 1 g in d5w 100mL LOCKED DOSE 1 g, IV Piggyback, Q1H, 2 doses, First dose on Thu09/14/24 at 0900, Last dose on Thu09/14/24 at 1000, Administer over 60 Minutes, Total dose is 2g New Bag 09/14/2024 10:51 AM EST 1 g 100 mL/hr magnesium sulfate 1 g in d5w 100mL LOCKED DOSE 1 g, IV Piggyback, Q1H, 2 doses, First dose (after last reorder) on Thu09/14/24 at 2100, Last dose on Thu09/14/24 at 2200, Administer over 60 Minutes, Total dose is 2g New Bag 09/14/2024 10:20 PM EST 1 g 100 mL/hr New Bag 09/14/2024 9:11 PM EST 1 g 100 mL/hr magnesium sulfate 1 g in d5w 100mL LOCKED DOSE 1 g, IV Piggyback, Q1H, 2 doses, First dose on 09/17/24 at 1600, Last dose on 09/17/24 at 1700, Administer over 60 Minutes, Total dose is 2g Rate Verify 09/17/2024 4:34 PM EST 1 g/hr 100 mL/hr Restarted 09/17/2024 4:33 PM EST 1 g/hr 100 mL/hr New Bag 09/17/2024 4:05 PM EST 1 g 100 mL/hr magnesium sulfate 1 g in d5w 100mL LOCKED DOSE 1 g, IV Piggyback, Q1H, 1 dose, First dose (after last reorder) on 09/17/24 at 1700, Administer over 60 Minutes, Total dose is 1g New Bag 09/17/2024 5:26 PM EST 1 g 100 m L/hr magnesium sulfate 1 g in d5w 100mL LOCKED DOSE 1 g, IV Piggyback, Q1H, 2 doses, First dose on Thu09/19/24 at 0900, Last dose on Thu09/19/24 at 1000, Administer over 60 Minutes, Total dose is 2g New Bag 09/19/2024 10:05 AM EST 1 g 100 mL/hr New Bag 09/19/2024 8:58 AM EST 1 g 100 mL/hr melatonin tab 6 mg 6 mg, Oral, HS, First dose (after last modification) on Thu09/10/24 at 2200, Until Discontinued Given 09/16/2024 9:46 PM EST 6 mg Given 09/15/2024 10:08 PM EST 6 mg Given 09/14/2024 9:47 PM EST 6 mg melatonin tab 6 mg 6 mg, Oral, HS, First dose (after last modification) on Thu09/17/24 at 2100, Until Discontinued Given 09/17/2024 8:38 PM EST 6 mg melatonin tab 9 mg 9 mg, Oral, HS, First dose (after last modification) on Thu09/18/24 at 2100, Until Discontinued Given 09/20/2024 7:50 PM EST 9 mg Given 09/19/2024 9:33 PM EST 9 mg Given 09/18/2024 8:18 PM EST 9 mg metoprolol succinate XL (toPROL XL) tab 100 mg 100 mg, Oral, Daily(AM), First dose (after last modification) on Thu09/16/24 at 0900, Until Discontinued, Hold for HR less than 60 or SBP below 100 and notify service if dose is held This med should NOT be Crushed or Chewed. Given 09/21/2024 8:37 AM EST 100 mg Given 09/20/2024 9:51 AM EST 100 mg Given 09/19/2024 9:03 AM EST 100 mg metoprolol succinate XL (toPROL XL) tab 25 mg 25 mg, Oral, ONCE, On Thu09/13/24 at 1000, For 1 dose, Hold for HR less than 60 or SBP below 100 and notify service if dose is held This med should NOT be Crushed or Chewed. Given 09/13/2024 9:49 AM EST 25 mg metoprolol succinate XL (toPROL XL) tab 50 mg 50 mg, Oral, Daily(AM), First dose on Thu09/12/24 at 1830, Until Discontinued, Hold for HR less than 60 or SBP below 100 and notify service if dose is held This med should NOT be Crushed or Chewed. Given 09/13/2024 8:41 AM EST 50 mg metoprolol succinate XL (toPROL XL) tab 75 mg 75 mg, Oral, Daily(AM), First dose (after last modification) on Thu09/14/24 at 0900, Until Discontinued, Hold for HR less than 60 or SBP below 100 and notify service if dose is held This med should NOT be Crushed or Chewed. Given 09/15/2024 9:59 AM EST 75 mg Given 09/14/2024 8:43 AM EST 75 mg Metoprolol Tartrate (Lopressor) inj 5 mg 5 mg, IV Push, ONCE, On Thu09/13/24 at 2115, For 1 dose Given 09/13/2024 8:49 PM EST 5 mg Metoprolol Tartrate (Lopressor) inj 5 mg 5 mg, IV Push, Q6H PRN Other, HR greater than 140, Starting on Thu09/13/24 at 2334, Until Thu09/21/24 at 1436 Given 09/15/2024 10:21 AM EST 5 mg Given 09/14/2024 4:23 PM EST 5 mg Metoprolol Tartrate (Lopressor) tab 25 mg 25 mg, Oral, BID (.AM/PM), First dose (after last modification) on Thu09/07/24 at 1345, Until Discontinued, Hold for HR less than 60 or SBP below 100 and notify service if dose is held Given 09/07/2024 2:38 PM EST 25 mg niCARdipine (CARDENE) 20 mg in 200 mL saline infusion Intravenous, 5 mg/hr (50 mL/hr), Please select this medication from the infusion pump library! PROTECT FROM LIGHT ! *NOTE VOLUME* Expires 96 hours after spiking on (date) at (hour) Titrate by 2.5 mg/hr no more frequently than every 5 minutes to a goal blood pressure of < 140. Max dose 15 mg/hr. , CONTINUOUS, Starting on Thu09/05/24 at 1500, Until Thu09/07/24 at 1001 Rate Verify 09/07/2024 9:00 AM EST 2.5 mg/hr 25 mL/hr Rate Verify 09/07/2024 8:00 AM EST 2.5 mg/hr 25 mL/hr Rate Change 09/07/2024 7:16 AM EST 2.5 mg/hr 25 mL/hr niCARdipine (CARDENE) 20 mg in 200 mL saline infusion Intravenous, 2.5 mg/hr (25 mL/hr), Please select this medication from the infusion pump library! PROTECT FROM LIGHT ! *NOTE VOLUME* Expires 96 hours after spiking on (date) at (hour) Titrate 2.5 mg/hr q 20 minutes until sbp less than 160. Max dose is 15 mg/hr. , CONTINUOUS, Starting on 09/10/24 at 0430, Until 09/10/24 at 1915 Rate Change 09/10/2024 11:56 AM EST 1 mg/hr 10 mL/hr Rate Change 09/10/2024 11:01 AM EST 2 mg/hr 20 mL/hr Rate Verify 09/10/2024 10:59 AM EST 3 mg/hr 30 mL/hr OLANZapine (zyPREXA IM) inj 5 mg 5 mg, Intramuscular, ONCE, On Thu09/14/24 at 1100, For 1 dose, Upon reconstitution with 2.1 mL of Sterile Water for Injection, each mL will contain 5 mg of olanzapine. Expires 1 hour after mixing. Given 09/14/2024 10:39 AM EST 5 mg Arm Right Upper OLANZapine (zyPREXA IM) inj 5 mg 5 mg, Intramuscular, Q8H PRN Agitation, Starting on Thu09/14/24 at 1211, Until Thu09/21/24 at 1436, Upon reconstitution with 2.1 mL of Sterile Water for Injection, each mL will contain 5 mg of olanzapine. Expires 1 hour after mixing. Given 09/20/2024 9:39 PM EST 5 mg Arm L eft Upper Given 09/18/2024 12:27 AM EST 5 mg A rm Right Upper Given 09/17/2024 5:24 AM EST 5 mg Ar m Left Upper Oral Hygiene: Mouth Swab with dentifrice Oral, Q4H LIMITED (00;04;12;16), First dose on Thu09/05/24 at 1600, Until Discontinued, To be used with 1.5% hydrogen peroxide solution or 0.05% cetylpyridium chloride oral rinse Given 09/11/2024 4:00 PM EST Given 09/11/2024 12:00 PM EST Given 09/11/2024 4:00 AM EST oxygen GAS Inhalation, OXYGEN, First dose on [facility] 09/05/24 at 1600, Until Discontinued, Device/Managed by: Low Flow Device, Goal SPO2 (%): 91-95, Starting Device: Nasal Cannula, Initial Flow Rate (LPM): 2, Lowest Support: Nasal Cannula: Flow 0-6 LPM. Titrate up/down by 1 LPM., Titration Interval: Q2 minutes and as needed., Notify Provider: For sudden DECREASE in resting SPO2 to less than 85% and when escalating delivery device., Wean patient off Oxygen when the oxygen saturation is greater than or equal to 93% Oxygen On 09/11/2024 12:00 AM EST Oxygen On 09/10/2024 4:00 PM EST Oxygen On 09/10/2024 8:00 AM EST oxygen GAS Inhalation, OXYGEN, First dose on [facility] 09/08/24 at 1600, Until Discontinued, Device/Managed by: NIV or Ventilator Device, Goal SPO2 (%): 91-95, Notify Provider: For sudden DECREASE in resting SPO2 to less than 85% and when escalating delivery device., Initial FiO2 (%): 40, Titration Interval: Q2 minutes and as needed., Wean patient off Oxygen when the oxygen saturation is greater than or equal to 93% Oxygen On 09/20/2024 12:00 AM EST Oxygen On 09/19/2024 4:00 PM EST 2 L/min(Oxygen) Oxygen On 09/19/2024 8:00 AM EST 3 L/min(Oxygen) Polyethylene Glycol 3350 (Miralax) oral powder 17 g 17 g (1 Packet), Oral, Daily(AM), First dose on [facility] 09/10/24 at 0900, Until Discontinued, Mix in 8 oz of water, juice, soda, coffee, or tea. Given 09/21/2024 8:37 AM EST 17 g Given 09/20/2024 9:51 AM EST 17 g Given 09/18/2024 9:20 AM EST 17 g polyvinyl alcohol-povidone PF (Refresh) ophthalmic solution 1 Drop 1 Drop, Both eyes, DAILY(1900), First dose on Thu09/06/24 at 1900, Until Discontinued Given 09/20/2024 5:[address] murphy Given 09/19/2024 6:58 PM EST 1 Drop Given 09/18/2024 6:35 PM EST 1 Drop Potassium Bicarbonate (Klor-Con/Ef) eff tab TBEF 50 mEq 50 mEq, Oral, ONCE, On Thu09/14/24 at 0815, For 1 dose, Dissolve tablet in at least 4 ounces of water prior to administering. Given 09/14/2024 8:49 AM EST 50 mEq potassium chloride 10 mEq in 100 mL ivpb LOCKED DOSE 10 mEq, Peripheral IV, Q1H, 3 doses, First dose on Thu09/10/24 at 0800, Last dose on Thu09/10/24 at 1000, Administer over 60 Minutes, Standard infusion duration is 60 minutes. Rate Verify 09/10/2024 12:18 PM EST 10 mEq/hr 100 mL/hr New Bag 09/10/2024 11:41 AM EST 10 mEq 100 mL/hr Rate Verify 09/10/2024 10:59 AM EST 10 mEq/hr 100 mL/hr potassium chloride ER tab 20 mEq 20 mEq, Oral, ONCE, On Thu09/11/24 at 1030, For 1 dose, This med should NOT be Crushed or Chewed Given 09/11/2024 10:43 AM EST 20 mEq potassium chloride ER tab 40 mEq 40 mEq, Oral, ONCE, On Thu09/16/24 at 1230, For 1 dose, This med should NOT be Crushed or Chewed Given 09/16/2024 1:20 PM EST 40 mEq potassium CHLORide liquid 20 mEq 20 mEq, Oral, ONCE, On Thu09/14/24 at 2000, For 1 dose, To avoid GI irritation, must further diilute 15 ml in 3 ounces H2O or other fluid Given 09/14/2024 9:08 PM EST 20 mEq potassium CHLORide liquid 40 mEq 40 mEq, Oral, ONCE, On Thu09/14/24 at 1130, For 1 dose, To avoid GI irritation, must further diilute 15 ml in 3 ounces H2O or other fluid Given 09/14/2024 4:22 PM EST 40 mEq potassium CHLORide liquid 40 mEq 40 mEq, Oral, ONCE, On Thu09/18/24 at 1130, For 1 dose, To avoid GI irritation, must further diilute 15 ml in 3 ounces H2O or other fluid Given 09/18/2024 11:44 AM EST 40 mEq potassium phosphate 30 mmol in NSS 250 mL (K phos) ivpb 30 mmol, Peripheral IV, ONCE, 1 dose, On 09/17/24 at 1515 New Bag 09/17/2024 7:02 PM EST 30 mmol 53 mL/hr QUEtiapine (SEROquel) tab 100 mg 100 mg, Oral, QHS, First dose (after last modification) on Thu09/18/24 at 2100, Until Discontinued Given 09/20/2024 7:52 PM EST 100 mg Given 09/19/2024 9:33 PM EST 100 mg Given 09/18/2024 8:19 PM EST 100 mg QUEtiapine (SEROquel) tab 12.5 mg 12.5 mg, Oral, BID PRN Agitation, Starting on Thu09/07/24 at 1814, Until Thu09/07/24 at 1933 Given 09/07/2024 6:32 PM EST 12.5 mg QUEtiapine (SEROquel) tab 50 mg 50 mg, Oral, QHS, First dose on Thu09/17/24 at 2100, Until Discontinued Given 09/17/2024 8:38 PM EST 50 mg risperiDONE ODT (RisperDAL M-TAB) tab 0.5 mg 0.5 mg, On Tongue, ONCE, On Thu09/07/24 at 1430, For 1 dose Given 09/07/2024 2:43 PM EST 0.5 mg risperiDONE ODT (RisperDAL M-TAB) tab 0.5 mg 0.5 mg, On Tongue, BID (.AM/PM), First dose on Thu09/08/24 at 1030, Until Discontinued Given 09/08/2024 11:00 AM EST 0.5 mg risperiDONE ODT (RisperDAL M-TAB) tab 0.5 mg 0.5 mg, On Tongue, ONCE, On Thu09/08/24 at 1630, For 1 dose Given 09/08/2024 4:08 PM EST 0.5 mg senna (Senokot) 1 Tablet 1 Tablet, Oral, Daily(AM), First dose on Thu09/10/24 at 0900, Until Discontinued Given 09/21/2024 8:37 AM EST 1 Ta blet Given 09/20/2024 9:51 AM EST 1 Tablet Given 09/19/2024 9:02 AM EST 1 Tablet sodium bicarbonate tab 325 mg 325 mg, Oral, TID(AM/NOON/HS), First dose on Thu09/12/24 at 1345, Until Discontinued Given 09/13/2024 5:11 AM EST 325 mg Given 09/12/2024 9:45 PM EST 325 mg Given 09/12/2024 3:14 PM EST 325 mg sodium bicarbonate tab 650 mg 650 mg, Oral, TID(AM/NOON/HS), First dose (after last modification) on Thu09/13/24 at 1200, Until Discontinued Given 09/17/2024 2:16 PM EST 650 mg Given 09/17/2024 5:03 AM EST 650 mg Given 09/16/2024 9:46 PM EST 650 mg sodium bicarbonate tab 650 mg 650 mg, Oral, TID(AM/NOON/HS), First dose (after last modification) on Thu09/17/24 at 2100, Until Discontinued Given 09/21/2024 5:17 AM EST 650 mg Given 09/20/2024 7:51 PM EST 650 mg Given 09/20/2024 12:22 PM EST 650 mg sodium chloride 0.9 % flush peripheral lucy 3 mL 3 mL, IV Push, Q8H, First dose on Thu09/05/24 at 1430, Until Discontinued, Do not flush if lock, PICC, or central line not in place; IV infusing or unable to flush. Given 09/20/2024 2:00 PM EST 3 mL Given 09/20/2024 6:00 AM EST 3 mL Given 09/19/2024 9:34 PM EST 3 mL Spironolactone (Aldactone) tab 25 mg 25 mg, Oral, Daily(AM), First dose on Ca 09/15/24 at 0900, Until Discontinued Given 09/21/2024 8:37 AM EST 25 mg Given 09/20/2024 9:51 AM EST 25 mg Given 09/19/2024 9:03 AM EST 25 mg tamsulosin (Flomax) cap 0.4 mg 0.4 mg, Oral, Daily(AM), First dose on Thu09/11/24 at 1030, Until Discontinued, Administer 30 min after meal. This med should NOT be Crushed or Chewed or opened! ORAL administration only!! Given 09/21/2024 8:37 AM EST 0.4 mg Given 09/20/2024 9:51 AM EST 0.4 mg Given 09/19/2024 9:03 AM EST 0.4 mg traZODone (Desyrel) tab 12.5 mg 12.5 mg, Oral, Q6H PRN Other, agitation, Starting on Thu09/13/24 at 1531, Until Thu09/14/24 at 1233 Given 09/14/2024 9:51 AM EST 12.5 mg Given 09/14/2024 1:05 AM EST 12.5 mg Given 09/13/2024 5:05 PM EST 12.5 mg traZODone (Desyrel) tab 12.5 mg 12.5 mg, Oral, TID(AM/NOON/HS), First dose (after last modification) on Thu09/14/24 at 1315, Until Discontinued Given 09/17/2024 2:16 PM EST 12.5 mg Given 09/17/2024 5:03 AM EST 12.5 mg Given 09/16/2024 9:46 PM EST 12.5 mg traZODone (Desyrel) tab 12.5 mg 12.5 mg, Oral, TID(AM/NOON/HS), First dose (after last modification) on 09/17/24 at 2100, Until Discontinued Given 09/17/2024 8:38 PM EST 12.5 mg traZODone (Desyrel) tab 12.5 mg 12.5 mg, Oral, BID (.AM/PM), First dose (after last modification) on Thu09/18/24 at 1145, Until Discontinued Given 09/21/2024 5:17 AM EST 12.5 mg Given 09/20/2024 12:22 PM EST 12.5 mg Given 09/20/2024 6:54 AM EST 12.5 mg traZODone (Desyrel) tab 25 mg 25 mg, Oral, QHS, First dose on Thu09/18/24 at 2100, Until Discontinued Given 09/20/2024 7:51 PM EST 25 mg Given 09/19/2024 9:36 PM EST 25 mg Given 09/18/2024 8:17 PM EST 25 mg Valproate Sodium (Depacon) 250 mg in NSS 50 mL ivpb 250 mg, IV Piggyback, BID (.AM/PM), First dose (after last modification) on Ca 09/08/24 at 1815, Until Discontinued New Bag 09/10/2024 9:25 AM EST 250 mg 54.5 m L/hr Rate Verify 09/09/2024 9:00 AM EST 250 mg/hr 54 mL/hr New Bag 09/09/2024 8:29 AM EST 250 mg 54.5 mL/hr Valproate Sodium (Depacon) 250 mg in NSS 50 mL ivpb 250 mg, IV Piggyback, Q12H PRN Agitation, Starting on Ca 09/08/24 at 1807, Until Thu09/11/24 at 1304 Rate Verify 09/09/2024 8:00 PM EST 54.5 mL/hr New Bag 09/09/2024 7:48 PM EST 250 mg 54.5 mL/hr Valproate Sodium (Depacon) 250 mg in NSS 50 mL ivpb 250 mg, IV Piggyback, Q6H, First dose (after last modification) on 09/10/24 at 1800, Until Discontinued New Bag 09/12/2024 5:49 PM EST 250 mg 54.5 mL/hr New Bag 09/12/2024 1:09 PM EST 250 mg 54.5 mL/hr New Bag 09/12/2024 5:27 AM EST 250 mg 54.5 mL/hr Valproate Sodium (Depacon) 250 mg in NSS 50 mL ivpb 250 mg, IV Piggyback, Q8H, First dose (after last modification) on Thu09/13/24 at 0600, Until Discontinued New Bag 09/13/2024 5:16 AM EST 250 mg 54.5 mL/hr documented in this encounter Active and Recently Administered Medications Times are shown in EST. Scheduled Medication Order 09/19/2024 09/20/2024 09/21/2024 aspirin chew tab 81 mg 81 mg, Oral, Daily(AM), First dose (after last modification) on Thu09/19/24 at 0900, Until Discontinued 901 (Given - Provider: Melissa Islas RN) 09 (Given - Provider: Jillian Merida RN) 0837 (Given - Provider: Jillian Merida RN) cycloSPORINE (Restasis) 0.05 % ophthalmic emulsion 1 Drop 1 Drop, Both eyes, BID (.AM/PM), First dose on Thu09/06/24 at 2100, Until Discontinued 906 (Given - Provider: Melissa Islas RN)2135 (Given - Provider: Waqas Castillo RN) 899 (Given - Provider: Jillian Merida RN)1951 (Given - Provider: Blayne Mcfadden, [place]) 899 (Given - Provider: Jillian Merida RN) Digoxin (Lanoxin) tab 125 mcg 125 mcg, Oral, Daily(AM), First dose on Thu09/16/24 at 1415, Until Discontinued, Hold For HR Less than 60 and notify service if dose is held 901 (Given - Provider: Melissa Islas RN) 950 (Given - Provider: Jillian Merida RN) 0837 (Given - Provider: Jillian Merida RN) Docusate Sodium (Colace) oral liquid 100 mg 100 mg, Oral, Daily(AM), First dose (after last modification) on Thu09/17/24 at 0900, Until Discontinued 902 (Given - Provider: Melissa Islas RN) 09 (Given - Provider: Jillian Merida RN) 0837 (Given - Provider: Jillian Merida RN) dorzolamide (Trusopt Ocumeter Plus) 2 % ophthalmic solution 1 Drop 1 Drop, Both eyes, BID (.AM/PM), First dose on Thu09/07/24 at 2100, Until Discontinued 09 (Given - Provider: Melissa Islas RN)2136 (Given - Provider: Waqas Castillo, [place]) 0951 (Given - Provider: Jillian Merida RN)2099 (Not Given - Provider: Blayne Mcfadden RN - Reason: Refused-Notify Provider) 0900 (Given - Provider: Jillian Merida RN) Finasteride (Proscar) tab 5 mg 5 mg, Oral, Daily(AM), First dose on Thu09/10/24 at 1315, Until Discontinued 901 (Given - Provider: Melissa Islas RN) 0951 (Given - Provider: Jillian Merida RN) 0837 (Given - Provider: Jillian Merida RN) Furosemide (Lasix) tab 40 mg 40 mg, Oral, Daily(AM), First dose on Thu09/16/24 at 0900, Until Discontinued 0902 (Given - Provider: Melissa Islas RN) 0951 (Given - Provider: Jillian Merida RN) 0837 (Given - Provider: Jillian Merida RN) hEParin inj 5,000 Units 5,000 Units, Subcutaneous, Q8H, First dose (after last modification) on 09/17/24 at 2100, Until Discontinued 0553 (Given - Provider: Brock Walsh RN)1417 (Given - Provider: Melissa Islas RN)2133 (Given - Provider: Waqas Castillo RN) 0654 (Given - Provider: Cee Lott LPN)1400 (Given - Provider: Jillian Merida, [place])1949 (Given - Provider: Blayne Mcfadden RN) 0518 (Given - Provider: Blayne Mcfadden RN) insulin aspart (NovoLOG) inj Subcutaneous, W/MEALS AND HS, First dose (after last modification) on Thu09/11/24 at 1200, Until Discontinued, MEDIUM DOSE (Usual starting dose): Sliding Scale Correctional insulin may be given if the patient is NPO. Dose based on standard build from [employer]ulin [employer]culator. Do not modify insulin doses in administration instructions!, Glucose less than 70 instructions: Obtain STAT lab blood glucose and call covering provider., Glucose 80-150 (units): 0, Glucose 151-200 (units): 2, Glucose 201-250 (units): 4, Glucose 251-300 (units): 6, Glucose greater than 300 (units): 8, Glucose greater than 300 instructions: Give suggested insulin dose and call covering provider. 0800 (Not Given - Provider: Melissa Islas RN - Reason: Parameter(s) Not Met)1322 (Given - Provider: Melissa Islas RN)1807 (Given - Provider: Melissa Islas RN)2200 (Not Given - Provider: Waqas Castillo RN - Reason: Parameter(s) Not Met) 0800 (No Insulin - Provider: Jillian Merida RN - Reason: Parameter(s) Not Met)1222 (Given - Provider: Jillian Merida RN)1735 (Given - Provider: Jillian Merida, RN)2200 (Not Given - Provider: Blayne Mcfadden, [place] - Reason: Refused-Notify Provider) 0800 (Not Given - Provider: Jillian Merida RN - Reason: Parameter(s) Not Met) Lisinopril (Prinivil) tab 10 mg 10 mg, Oral, Daily(AM), First dose (after last modification) on Thu09/12/24 at 0900, Until Discontinued 09 (Given - Provider: Melissa Islas RN) 0951 (Given - Provider: Jillian Merida RN) 0837 (Given - Provider: Jillian Merida RN) magnesium sulfate 1 g in d5w 100mL LOCKED DOSE (COMPLETED) 1 g, IV Piggyback, Q1H, 2 doses, First dose on Thu09/19/24 at 0900, Last dose on Thu09/19/24 at 1000, Administer over 60 Minutes, Total dose is 2g 0858 (New Bag - Provider: Melissa Islas RN)0958 (Stopped - Provider: Melissa Islas RN)1005 (New Bag - Provider: Melissa Islas RN)1105 (Stopped - Provider: Melissa Islas RN) melatonin tab 9 mg 9 mg, Oral, HS, First dose (after last modification) on Thu09/18/24 at 2100, Until Discontinued 2132 (Given - Provider: Waqas Castillo RN) 1950 (Given - Provider: Blayne Mcfadden, [place]) metoprolol succinate XL (toPROL XL) tab 100 mg 100 mg, Oral, Daily(AM), First dose (after last modification) on Thu09/16/24 at 0900, Until Discontinued, Hold for HR less than 60 or SBP below 100 and notify service if dose is held This med should NOT be Crushed or Chewed. 0903 (Given - Provider: Melissa Islas RN) 0951 (Given - Provider: Jillian Merida RN) 0837 (Given - Provider: Jillian Merida, [place]) oxygen GAS(Linked Group 1) Inhalation, OXYGEN, First dose on Ca 09/08/24 at 1600, Until Discontinued, Device/Managed by: NIV or Ventilator Device, Goal SPO2 (%): 91-95, Notify Provider: For sudden DECREASE in resting SPO2 to less than 85% and when escalating delivery device., Initial FiO2 (%): 40, Titration Interval: Q2 minutes and as needed., Wean patient off Oxygen when the oxygen saturation is greater than or equal to 93% 0000 (Oxygen On - Provider: Brock Walsh RN)0800 (Oxygen On - Provider: Melissa Islas RN)1600 (Oxygen On - Provider: Melissa Islas RN) 0000 (Oxygen On - Provider: Waqas Castillo RN)0800 (Oxygen Off - Provider: Jillian Merida RN)1600 (Oxygen Off - Provider: Jillian Merida RN) 0000 (Oxygen Off - Provider: Blayne Mcfadden, [place])0800 (Oxygen Off - Provider: Jillian Merida RN) Pneumococcal 20-Olga Conj Vacc (Prevnar 20) inj 0.5 mL 0.5 mL, Intramuscular, ONCE, On Thu09/21/24 at 1030, For 1 dose, Add Lot# and Columnist/Commentator in Immunization Info section of SEP 1029 (Due) Polyethylene Glycol 3350 (Miralax) oral powder 17 g 17 g (1 Packet), Oral, Daily(AM), First dose on Thu09/10/24 at 0900, Until Discontinued, Mix in 8 oz of water, juice, soda, coffee, or tea. 0900 (Not Given - Provider: Melissa Islas RN - Reason: Other- Please add reason in Comments - Comment: pt having large BMs) 0951 (Given - Provider: Jillian Merida RN) 0837 (Given - Provider: Jillian Merida RN) polyvinyl alcohol-povidone PF (Refresh) ophthalmic solution 1 Drop 1 Drop, Both eyes, DAILY(1900), First dose on Thu09/06/24 at 1900, Until Discontinued 1857 (Given - Provider: Melissa Islas RN) 1735 (Given - Provider: Jillian Merida RN) QUEtiapine (SEROquel) tab 100 mg 100 mg, Oral, QHS, First dose (after last modification) on Thu09/18/24 at 2100, Until Discontinued 2132 (Given - Provider: Waqas Castillo, [place]) 1951 (Given - Provider: Blayne Mcfadden, [place]) senna (Senokot) 1 Tablet 1 Tablet, Oral, Daily(AM), First dose on 09/10/24 at 0900, Until Discontinued 09 (Given - Provider: Melissa Islas RN) 0951 (Given - Provider: Jillian Merida RN) 0837 (Given - Provider: Jillian Merida RN) sodium bicarbonate tab 650 mg 650 mg, Oral, TID(AM/NOON/HS), First dose (after last modification) on 09/17/24 at 2100, Until Discontinued 0552 (Given - Provider: Brock Walsh RN)1206 (Given - Provider: Melissa Islas RN)2133 (Given - Provider: Waqas Castillo RN) 0655 (Given - Provider: Cee Lott LPN)1222 (Given - Provider: Jillian Merida RN)1949 (Given - Provider: Blayne Mcfadden RN) 0517 (Given - Provider: Blayne Mcfadden RN) sodium chloride 0.9 % flush peripheral lucy 3 mL 3 mL, IV Push, Q8H, First dose on 09/05/24 at 1430, Until Discontinued, Do not flush if lock, PICC, or central line not in place; IV infusing or unable to flush. 0600 (Given - Provider: Brock Walsh RN)1400 (Given - Provider: Melissa Islas RN)2134 (Given - Provider: Waqas Castillo RN) 0600 (Given - Provider: Cee Lott LPN)1400 (Given - Provider: Jillian Merida RN)2200 (Not Given - Provider: Blanye Mcfadden RN - Reason: Parameter(s) Not Met) 0600 (Not Given - Provider: Blayne Mcfadden RN - Reason: Parameter(s) Not Met) Spironolactone (Aldactone) tab 25 mg 25 mg, Oral, Daily(AM), First dose on Ca 09/15/24 at 0900, Until Discontinued 09 (Given - Provider: Melissa Islas RN) 0951 (Given - Provider: Jillian Merida RN) 0837 (Given - Provider: Jillian Merida RN) tamsulosin (Flomax) cap 0.4 mg 0.4 mg, Oral, Daily(AM), First dose on 09/11/24 at 1030, Until Discontinued, Administer 30 min after meal. This med should NOT be Crushed or Chewed or opened! ORAL administration only!! 0903 (Given - Provider: Melissa Islas RN) 0951 (Given - Provider: Jillian Merida, RN) 0837 (Given - Provider: Jillian Merida, RN) traZODone (Desyrel) tab 12.5 mg 12.5 mg, Oral, BID (.AM/PM), First dose (after last modification) on Thu09/18/24 at 1145, Until Discontinued 0553 (Given - Provider: Brock Walsh RN)1200 (Not Given - Provider: Melissa Islas RN - Reason: Other- Please add reason in Comments - Comment: okay to hold per Dr. Valentino due to pt being drowsy) 0654 (Given - Provider: Cee Lott LPN)1222 (Given - Provider: Jillian Merida, [place]) 0517 (Given - Provider: Blayne Mcfadden, [place]) traZODone (Desyrel) tab 25 mg 25 mg, Oral, QHS, First dose on Thu09/18/24 at 2100, Until Discontinued 2136 (Given - Provider: Waqas Castillo RN) 195 (Given - Provider: Blayne Mcfadden, [place]) PRN Medication Order 09/19/2024 09/20/2024 09/21/2024 Acetaminophen (Tylenol) tab 650 mg 650 mg, Oral, Q6H PRN Fever >38C(100.5F), Starting on Thu09/11/24 at 0405, Until Thu09/21/24 at 1436, Maximum of 4 grams (4000 mg) per day. albuterol-ipratropium (Duoneb) inhalation solution 3 mL 3 mL, Nebulizer, Q4H PRN Dyspnea, Starting on Thu09/07/24 at 1457, Until Thu09/21/24 at 1436, 3 mL = 0.5 mg ipratropium/ 2.5 mg albuterol Benzonatate (Tessalon Perles) cap 100 mg 100 mg, Oral, Q8H PRN Cough, Starting on Thu09/07/24 at 1307, Until Thu09/21/24 at 1436, This med should NOT be Crushed or Chewed dextrose 50% inj 25 mL 25 mL, IV Push, PRN Hypoglycemia, Other, For blood glucose 54 - 69 mg/dL or 70 - 100 mg/dL with symptoms AND patient is unresponsive, NPO, OR unable to swallow, Starting on Ca 09/08/24 at 1002, Until Thu09/21/24 at 1436, Administer IV. Recheck blood glucose after 15 minutes. Notify provider. dextrose 50% inj 50 mL 50 mL, IV Push, PRN Hypoglycemia, Other, For blood glucose below 54 mg/dL AND patient unresponsive, NPO, OR unable to swallow, Starting on Ca 09/08/24 at 1002, Until Thu09/21/24 at 1436, Administer IV. Recheck blood glucose in 15 minutes. Notify provider. Divalproex (Depakote Sprinkle) delayed release capsule 125 mg 125 mg, Oral, Q8H PRN Other, agitation, Starting on Thu09/14/24 at 1232, Until Thu09/21/24 at 1436, Swallow the capsule or tablet whole. Do not crush, break or chew it. You may open the sprinkle capsule and mix the medicine beads with a small amount (about a spoonful) of soft food such as applesauce or pudding. Swallow the mixture whole. 2343 (Given - Provider: Cee Lott LPN) 2119 (Given - Provider: Blayne Mcfadden RN) glucagon (Glucagen) inj 1 mg 1 mg, Intramuscular, PRN Hypoglycemia, Other, If patient is unresponsive, or NPO and has no IV access, Starting on Thu09/08/24 at 1002, Until Thu09/21/24 at 1436, NPO and no IV access with either 1) blood glucose less than 100 mg/dL and symptomatic OR 2) blood glucose less than 70 mg/dL and asymptomatic Glucose (Glutose 15) 40 % gel 15 g of glucose 15 g of glucose, Oral, PRN Hypoglycemia (low sugar), Other, For blood glucose 54 - 69 mg/dL or 70 - 100 mg/dL with symptoms AND patient alert WITH difficulty chewing/swallowing, Starting on Ca 09/08/24 at 1002, Until Thu09/21/24 at 1436, Administer gel. Recheck blood glucose after 15 minutes. Notify provider. 37.5 gram tube = 15 grams glucose = 1 each Glucose (Glutose 15) 40 % gel 30 g of glucose 30 g of glucose, Oral, PRN Hypoglycemia (low sugar), Other, For blood glucose below 54 mg/dL AND patient alert WITH difficulty chewing/swallowing, Starting on Thu09/08/24 at 1002, Until Thu09/21/24 at 1436, Administer gel. Recheck blood glucose after 15 minutes. Notify provider. 37.5 gram tube = 15 grams glucose = 1 each glucose chew tab 16 g 16 g, Oral, PRN Hypoglycemia, Other, For blood glucose 54 - 69 mg/dL or 70 - 100 mg/dL with symptoms and patient alert without difficulty chewing/swallowing., Starting on Thu09/08/24 at 1002, Until Thu09/21/24 at 1436 Haloperidol Lactate (Haldol) 5 MG/ML inj 1 mg 1 mg, IV Push, Q8H PRN Agitation, Starting on Thu09/14/24 at 1211, Until Thu09/21/24 at 1436 labetalol (Trandate) inj 10 mg 10 mg, Intravenous, Q1H PRN Hypertension, SBP >160, Starting on Thu09/07/24 at 1815, Until Thu09/21/24 at 1436 Metoprolol Tartrate (Lopressor) inj 5 mg 5 mg, IV Push, Q6H PRN Other, HR greater than 140, Starting on Thu09/13/24 at 2334, Until Thu09/21/24 at 1436 OLANZapine (zyPREXA IM) inj 5 mg 5 mg, Intramuscular, Q8H PRN Agitation, Starting on Thu09/14/24 at 1211, Until Thu09/21/24 at 1436, Upon reconstitution with 2.1 mL of Sterile Water for Injection, each mL will contain 5 mg of olanzapine. Expires 1 hour after mixing. 2138 (Given - Provider: Chelsi Han RN) Linked Groups Order Group 1: Ventilation Method: Acute Non-Invasive --- PEEP/EPAP/CPAP: 5 --- Changes Per Adult Protocol: Yes (CANCELED) CONTINUOUS, Starting on Thu09/08/24 at 1135, Until Specified Routine And oxygen GASJump to med Inhalation, OXYGEN, First dose on Thu09/08/24 at 1600, Until Discontinued, Device/Managed by: NIV or Ventilator Device, Goal SPO2 (%): 91-95, Notify Provider: For sudden DECREASE in resting SPO2 to less than 85% and when escalating delivery device., Initial FiO2 (%): 40, Titration Interval: Q2 minutes and as needed., Wean patient off Oxygen when the oxygen saturation is greater than or equal to 93% documented in this encounter Advance Directives Documents on File Type Date Recorded Patient Client Engagement Specialist Expl anation Advance Directives and Living Will 09/20/2024 signed on 05/15/2021 ADVANCE DIRECTIVE / LIVING WILL Power of Club Lounge Attendant 09/20/2024 signed on 05/15/2021 POWER OF YACHT RIGGER * No Code (Latest Code Status on [...] the patient have Health Care Power of Club Lounge Attendant? No Care Teams Supervisor Coal Handling Relationship Specialty Start Date End Date ProJeremy MD [address] [facility] [place] [address] PCP - General Internal Medicine 08/27/24 documented as of this encounter
--- OUTSIDE RECORDS SUMMARY | 2024-09-26 19:31 | External Medical Summary ---
Author Name Unknown Address Unknown Organization : Laboratory Report Ordering Provider Test Date Status NICK CHAMBERLAIN 09/21/2024 07:35:11 Final Observation Date Value Abnormality Reference (Units ) Status Glucose Point of Care 09/21/2024 07:35:11 130 Above high normal 70-120 (mg/dL) Final Performing Location
--- OUTSIDE RECORDS SUMMARY | 2024-09-26 19:31 | External Medical Summary | Summary of Care ---
Author Name Unknown Organization [facility] Address [address] [place] [address] Phone [phone] Care Team Providers Care Compliance Administrator Name Role Phone Pro, Jeremy Lanza MD Primary Care Provider [phone] Reason for Referral * Evaluate & Treat - Unlimited Visits (Within 10 days (routine)) - Authorized Specialty Diagnoses / Procedures Referred By Contact Referred To Contact Vascular Surgery / Cardiovascular Surgery Diagnoses Abnormal ankle brachial index (JENN) Andre Olson DO [address] [place] [address] Phone: tel: fax: Referral ID Status Reason Start Date Expiration Date Visits Requested Visits Authorized [id number] Authorized Specialty Services Required 09/10/2024 999 [id number] Question Answer Referral Priority Within 10 days (routine) Where should this appointment be scheduled? [facility] What condition is the patient being seen for? Leg Claudication / PAD / Ischemia Comments Patient admitted for stroke with hemorrhagic conversion. 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 Discharge Order * Precert (Within 10 days (routine)) - Authorized Specialty Diagnoses / Procedures Referred By Contkaren t Referred To Contact Radiology Diagnoses Intraparenchymal hemorrhage of brain (HCC) Procedures MRI BRAIN W WO CONTRAST Benito Solis MD [address] [place] [address] Phone: tel: fax: Referral ID Status Reason Start Date Expiration Date V isits Requested Visits Authorized [id number] Authorized 12/05/2024 999 [id number] Reason for Visit * Auth/Cert Specialty Diagnoses / Procedures Referred By Contac t Referred To Contact Diagnoses spontaneous intracranial head bleed Johanne Alicea MD [address] [place] [address] Phone: tel: fax: [place], [facility] [address] [place] [address] Referral ID Status Reason Start Date Expiration Date Visits Re quested Visits Authorized [id number] Encounter Details Date Type Department Care Team (Latest Contact Info) Description 09/05/2024 1:42 PM EST - Present Hospital Encounter [id number] [facility] 4TH FLOOR [facility] [address] [place], [place] [phone] Johanne Alicea MD [facility] [address] [place] Scott Frankel MD [facility] [address] [place] Sagar Ohara MD [facility] [address] [place], [place] Harper Recinos MD [facility] [address] [place] Michelle Kaur [place] [facility] [address] Catalino Valentino [place] [facility] [address] Annette Carroll MD [facility] [address] Various: KRAVS,CDIQDC,EKG Allergies No known active allergiesdocumented as of this encounter (statuses as of 09/21/2024) Medications traZODone HCl 50 MG Oral Tablet (Desyrel) Take 0.5 Tablets by mouth every night at bedtime for 10 days. 5 Tablet 09/20/19 25 2024 Active traZODone HCl 50 MG Oral Tablet (Desyrel) Take 0.25 Tablets by mouth in the morning and 0.25 Tablets at noon. Do all this for 10 days. 5 Tablet 09/20/192024 Active Tamsulosin HCl 0.4 MG Oral Capsule (Flomax) Take 1 Capsule by mouth in the morning for 10 days. 10 Capsule 09/21/192024 Active Spironolactone 25 MG Oral Tablet (Aldactone) [...] at bedtime for 10 days. 10 Tablet 09/20/19 25 2024 Active Polyvinyl Alcohol-Povidone PF 1.4-0.6 % Ophthalmic Solution (Refresh) Instill 1 Drop into both eyes every evening for 10 days. 10 Each 09/20/19 25 2024 Active Polyethylene Glycol 3350 17 GM Oral [...] days. 10 Capsule 09/20/19 25 2024 Active Dorzolamide HCl-Timolol Mal 2-0.5 % Ophthalmic Solution (Cosopt Ocumeter Plus) Instill 1 Drop into eye in the morning and 1 Drop before bedtime. Suspended Lisinopril 5 MG Oral Tablet (Prinivil) Take 1 Tablet by mouth in the morning. 01/06/20 Suspended metFORMIN HCl ER 500 MG Oral Tablet Extended Release 24 Hour (Glucophage XR) Take 2 Tablets by mouth in the morning and 2 Tablets before bedtime. 02/09/20 Suspended Metoprolol Succinate ER 50 MG Oral Tablet Extended Release 24 Hour (toPROL XL) Take 1.5 Tablets by mouth in the morning. 11/04/19 24 2024 Discontinued amLODIPine Besylate 2.5 MG Oral Tablet (Norvasc) Take 1 Tablet by mouth in the morning. 11/26/19 24 2024 Discontinued Dulaglutide 4.5 MG/0.5ML Subcutaneous Solution Auto-injector ([employer]) Inject 4.5 mg under the skin every Thursday. 05/18/20 Suspended Aspirin 81 MG Oral Tablet Delayed Release Take 1 Tablet by mouth in the morning. 12/25/19 Suspended Atorvastatin Calcium 40 MG Oral Tablet (Lipitor) Take 1 Tablet by mouth in the morning. 07/05/20 Suspended Citalopram Hydrobromide 10 MG Oral Tablet (CeleXA) Take 1 Tablet by mouth in the morning. 02/11/20 24 2024 Discontinued glipiZIDE ER 10 MG Oral Tablet Extended Release 24 Hour (glipiZIDE XL) Take 1 Tablet by mouth in the morning. 01/06/20 24 2024 Discontinued Pantoprazole Sodium 40 MG Oral Tablet Delayed Release (Protonix) Take 1 Tablet by mouth in the morning. 01/12/20 24 Suspended Cholecalciferol 50 MCG (2000 UT) Oral Tablet Take 1 Tablet by mouth in the morning. 03/30/20 Suspended cycloSPORINE 0.05 % Ophthalmic Emulsion (Restasis) Instill 1 Drop into both eyes in the morning and 1 Drop before bedtime. 11/04/19 Suspended Melatonin 5 MG Oral Capsule Take 1 Capsule by mouth at bedtime. 07/05/20 Suspended Ferrous Sulfate 325 (65 Fe) MG Oral Tablet (Feosol) Take 1 Tablet by mouth daily with breakfast. 01/12/20 Suspended Finasteride 5 MG Oral Tablet (Proscar) Take 1 Tablet by mouth in the morning. 05/18/20 Suspended AMBULATORY MISCELLANEOUS MEDICATION Dorzolamide HCI-Timolol 22.3-6.8: Administer 1 drop in both eyes twice daily Suspended documented as of this encounter (statuses as [...] Sign Reading Time Taken Comments Blood Pressure 136/73 09/20/2024 9:55 PM EST Pulse 89 09/20/2024 9:55 PM EST Temperature 37.2 C (99 F) 09/20/2024 6:24 PM EST Respiratory Rate 19 09/20/2024 9:55 PM EST Oxygen Saturation 92% 09/20/2024 9:55 PM EST Inhaled Oxygen Concentration - - Weight [...] Wynne RN documented in this encounter Discharge Instructions * Discharge Instr - AVS* Catalino Valentino MD - 09/20/2024 11:53 AM EST Discharge Date: 09/20/24 Brief summary of inpatient care: Goran Hester was admitted to [facility] on 09/05/2024 with altered mentation. The primary diagnosis at discharge was Intraparenchymal hemorrhage of brain , acute encephalopathy,heart failure with reduced ejection fraction, AFib with RVR. Goran Hester is being discharged to intermediate. The Hospital Medicine physician(s) at the time of discharge included: Catalino Valentino MD To reach this Provider Thursday through Thursday (8:00 AM to 4:30 PM) for any questions or test results: Call [phone] For after-hours concerns: Call [phone] and have your provider paged, or the provider lead simulation modeling engineer for the Department of Hospital Medicine paged. [...] Jeremy Ruby MD [address] / [facility] [address] (office) [phone] (fax) Special Instructions: End date for medications [...] from the original note were not included. [facility] A476/A INTERVAL HISTORY: No acute events overnight Patient was seen and examined bedside Hemodynamically stable. 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 The bank consultant has placed the following orders for their recommendations: Medications Recommended Follow-up HESHAM Paulino * Catalino Valentino MD - 09/19/2024 4:11 PM EST Images from the original note were not included. 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 Resting comfortably. No acute distress. Daughter endorses a multitude of visits by healthcare team today. Patient is looking forward to resting, and likely not engaging with me at present due to this desire. Net IO Since Admission: -5,338.8 mL [09/19/24 0916] Intake/Output Summary (Last 24 hours) at 09/19/2024 [...] Daily 09/19/2024: Lasix 40 mg PO Daily WELDING MACHINE OPERATOR ARC Diuretic Regimen: None WELDING MACHINE OPERATOR ARC Cardiac Medications: Amlodipine 2.5 mg PO Daily ASA 81 mg PO Daily Atorvastatin 40 mg PO Daily Lisinopril 5 mg PO Daily Metoprolol Succinate 75 mg PO Daily OBJECTIVE: Most Recent Vital Signs: BP: 150 mmHg/88 mmHg (09/19/24 0903) Pulse: 91 (09/19/24902) Resp: 20 (09/19/24599) Temp: 37.28 C (09/19/24599) Temp Summary: Temp Min: 35.8 C (96.4 F) Max: 37.3 C (99.1 F) SpO2: 95 % (09/19/24599) O2 flow rate: 2 L/MIN (09/19/24599) Supplemental O2 Delivery: Nasal Cannula (09/19/24599) Vital Signs Last 24 Hours: Systolic BP: [...] is abnormally low IMAGING: Echo report from [facility], October 2023: -EF of 30-35% -global hypokinesis mildly concentric left ventricular hypertrophy -no valvular abnormalities. Echo obtained [place] [facility] [place] : -LV ejection fraction is 30-34% [...] heart failure Acute hypoxic respiratory failure CAD, MO, s/p several PCIs HTN Hypokalemia Hypomagnesemia Recommendations: [...] primary team HESHAM Looney Department of Cardiology [address] [place] [address] * Catalino Valentino MD - 09/18/2024 10:55 AM EST Images from the original note were not included. [facility] A476/A INTERVAL HISTORY: Patient was agitated overnight and needed multiple medications including Haldol x1, the Zyprexa x1,Depakote x1 Patient was seen and examined with patient's son at bedside That pressure stable, tachycardic with a heart rate 108 Saturating 91% on 2 L through nasal cannula Stable in bed Denies any complaints Objective Physical Exam Most Recent Vital Signs: BP: 135 mmHg/87 mmHg (09/18/24919) Pulse: 108 (09/18/24919) Resp: 18 (09/18/24721) Temp: 37.61 C (09/18/24721) Temp Summary: Temp [...] HTN, type 2 diabetes mellitus not on buttermaker insulin with CKD stage 3b, DLD, 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 [facility] A476/A INTERVAL HISTORY: Patient was agitated overnight and needed multiple medications Was seen and examined with son at bedside Patient sleeping, somnolent likely secondary to all the medications he received overnight Otherwise hemodynamically stable. 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 * Catalino Valentnio MD - 09/16/2024 1:23 PM EST Images from the original note were not included. 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 * Susan Lowe, HESHAM - 09/16/2024 9:55 AM EST PROGRESS NOTE - Cardiology [facility] [address] Name: Goran Hester Location: [facility] A476/A Date: 09/16/2024 Time: 9:55 AM SUBJECTIVE: Met in bed. Patient without cardiac complaint. Remains on supplemental oxygen. Patient endorses that he is not on oxygen at baseline. Endorses that he is feeling well and is anxious to return home. Needs frequent redirecting during our time together. Net IO Since Admission: -2,908.69 mL [09/16/24955] Intake/Output Summary (Last 24 hours) at 09/16/2024 1313 Last data filed at 09/15/2024 2100 Gross per 24 hour Intake 269.76 ml Output 600 ml Net -330.24 ml Inpatient Diuretic Regimen: 09/16/2024: Lasix 40 mg PO Daily WELDING MACHINE OPERATOR ARC Diuretic Regimen: None WELDING MACHINE OPERATOR ARC Cardiac Medications: Amlodipine 2.5 mg PO Daily [...] is abnormally low IMAGING: Echo report from [facility], October 2023: -EF of 30-35% -global hypokinesis mildly concentric left ventricular hypertrophy -no valvular abnormalities. Echo obtained at [facility] [place] : -LV ejection fraction is 30-34% [...] heart failure Acute hypoxic respiratory failure CAD, MO, s/p several PCIs HTN Hypokalemia Hypomagnesemia Recommendations: [...] primary team HESHAM Looney Department of Cardiology [address] [place] [address] * Emelia Garcia, HESHAM Gan - 09/15/2024 12:34 PM EST PROGRESS NOTE - Heart Failure [address] [address] Name: Goran Hester Location[place] [facility] [place]476/A Date: 09/15/2024 Time: 12:34 PM SUBJECTIVE: [...] is abnormally low IMAGING: Echo report from [facility], October 2023: -EF of 30-35% -global hypokinesis mildly concentric left ventricular hypertrophy -no valvular abnormalities. Echo obtained at [facility] [place] : -LV ejection fraction is 30-34% [...] heart failure Acute hypoxic respiratory failure CAD, MO, s/p several PCIs HTN Hypokalemia Hypomagnesemia - [...] provider/QHP. HESHAM Aggarwal [place] [address] * Catalino Valentino MD - 09/15/2024 11:04 AM EST Images from the original note were not included. 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 Agitated, delirious. OBJECTIVE: Most Recent Vital Signs: BP: 156 mmHg/78 mmHg (09/14/24843) Pulse: 121 (09/14/24843) Resp: 18 (09/14/24611) Temp: 36.72 C (09/14/24611) Temp Summary: Temp Min: 36.2 C (97.2 F) Max: 37.5 C (99.5 F) SpO2: 93 % (09/14/24611) O2 flow rate: 0 L/MIN (09/14/24611) Supplemental O2 Delivery: Room Air, None (09/14/24611) Intake/Output Summary (Last 24 hours) at 09/14/2024 0909 Last data filed at 09/14/2024 0600 Gross per 24 hour Intake 1409.91 ml Output 2750 ml Net -1340.09 ml Net IO Since Admission: -2,068.45 mL [09/14/24908] Weight: Patient Vitals for the past 72 hrs: Weight 09/14/24 0612 96.2 kg (212 lb 1.6 [...] 1.7 Phosphorus 3.2 IMAGING: Echo report from [facility], October 2023: -EF of 30-35% -global hypokinesis mildly concentric left ventricular hypertrophy -no valvular abnormalities. Echo obtained at [facility] [place] : -LV ejection fraction is 30-34% [...] heart failure Acute hypoxic respiratory failure CAD, MO, s/p several PCIs HTN Hypokalemia Hypomagnesemia - [...] provider/QHP. HESHAM Aggarwal [place] [address] * Catalino Valentino MD - 09/14/2024 7:39 AM EST Images from the original note were not included. 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 [...] from the original note were not included. [facility] A465/A INTERVAL HISTORY: The patient was [...] supply COMPARISON XR CHEST 1 VIEW, ACC: [id number], dated 2024-09-10 03:37:51; XR CHEST 1 VIEW, ACC: [id number], dated 2024-09-08 11:36:42 TECHNIQUE Frontal chest radiograph [...] with chronic microvascular ischemic disease. Surgically replaced [place] ocular lenses. Opacification of the frontal sinus. [...] stroke COMPARISON CT HEAD_BRAIN WO CONTRAST, ACC: [id number], dated 2024-09-05 14:24:17; RADIOLOGY EXAM - CT (IMAGES ONLY, NO REPORT), ACC: [id number], dated 2024-09-05 11:06:25 TECHNIQUE Axial images obtained [...] carotid artery show atherosclerotic disease with resultant [id number] luminal stenosis of the right cavernous internal [...] the cavernous internal carotid arteries with resultant [id number] 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 5. Multiple prominent mediastinal lymph nodes, which could represent reactive lymph nodes. RADIOLOGY EXAM - CT (IMAGES ONLY, NO REPORT) Final Result This is an imaging study not interpreted or resulted by a [facility] or [facility] contracted radiologist. CT HEAD/BRAIN WO CONTRAST Final [...] for further evaluation. A request to the corporate administrative assistant was placed 09/05/2024, 3:02 pm to notify the ordering clinician that the report is [facility] for review. 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), BPH who initially presented to [facility] from assisted living facility for [...] condition: Stable Neuro on board, reviewed the [facility] 09/12 and suggested to start ASA 81 Cw Lipitor 40 daily Zio patch on dc Neuro checks Q4 Cw keppra 500 BID Cw WELDING MACHINE OPERATOR ARC citalopram Delirium stable now, stopped q.6 valproate Follow-up psych evaluation Delirium precautions; light on during the day, maintain hearing aids, eyeglasses, reorient during the day, physical activity, encourage OOB Sleep protocol CVM at bedside, will attempt to remove it today Acute hypoxic respiratory failure: likely secondary to below: Resolving Acute on chronic HF reduced EF CAD Hx MO s/p PCI with 5 stents HTN Patient currently on 6 L nasal cannula but SpO2 100%, weaned down as tolerated to maintain SpO2 more than 88% Resp driven protocol, spirometry and flutter valve therapy Duonebs q4 prn Fu cards recs Monitor on tele Cw lasix 40 iv bid TTE 09/06 showed an EF 30-34%, no evidence of thrombus, no comment on PFO Increased WELDING MACHINE OPERATOR ARC lisinopril to 10 mg daily Started metoprolol [...] made aware Type 2 DM not on buttermaker insulin with CKD stage 3b FS ACHS [...] not included. PROGRESS NOTE - Heart Failure [address] [address] Name: Goran Hester [place] [facility] [place] Date: 09/13/2024 Time: 9:28 AM SUBJECTIVE: Goran is awake and alert this morning. Denies discomfort, denies dyspnea. Tells me he has had prior cardiac care at [facility] and in [place]. OBJECTIVE: Most Recent Vital Signs: BP: 143 [...] 4.8 mg/dL 4.2 IMAGING: Echo report from [facility], October 2023: -EF of 30-35% -global hypokinesis mildly concentric left ventricular hypertrophy -no valvular abnormalities. Echo obtained at [facility] [place] : -LV ejection fraction is 30-34% (moderately reduced). There is diffuse hypokinesis to akinesis. There is no left ventricular mural thrombus. No mural thrombus was identified but the apical wall motion defect could serve as a nidus for thromboembolism. The aortic root and proximal ascending aorta are mildly enlarge Working on obtaining cardiology notes from [facility]. IMPRESSION and PLAN: (Discussed with Dr. Kang) New Onset Afib Acute systolic heart failure Acute hypoxic respiratory failure CAD, MO, s/p several PCIs HTN Afib w/ RVR [...] PROGRESS NOTE - Stroke / Vascular Neurology [facility] [address] Name: Goran Hester Location: [facility]465/[place] Date: 09/13/2024 Time: 7:08 AM SUBJECTIVE: [...] (09/13/24 0000) Supplemental O2 Delivery: Nasal Cannula (09/13/24) Weight: 97.9 kg (215 lb 12.8 oz) [...] any extremities Reflexes: did not asses [employer] Stroke Scale: 1A. LOC: 0 [...] Studies and noted significant findings as follows: [facility] 09/12/24 IMPRESSION: 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 The hematoma in the left temporal lobe has not significantly changed in size and there is no evidence of newintracranial hemorrhage. Similar edema and mild mass effect without midline shift or herniation. [facility] 09/06/24 IMPRESSION: 1. Continued evolution of left [...] with PMHx of HTN, CAD, hx of MO s/p stenting that presented with L temporal IPHafter being found down at his intermediate. Given MRI findings of surrounding ischemic burden, [...] should the patient's clinical course change. The bank consultant has placed the following orders for [...] from the original note were not included. [facility] A465/A INTERVAL HISTORY: Seen and examined [...] but no prior dx of dementia. 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 Pt [...] supply COMPARISON XR CHEST 1 VIEW, ACC: [id number], dated 2024-09-10 03:37:51; XR CHEST 1 VIEW, ACC: [id number], dated 2024-09-08 11:36:42 TECHNIQUE Frontal chest radiograph [...] with chronic microvascular ischemic disease. Surgically replaced [place] ocular lenses. Opacification of the frontal sinus. [...] stroke COMPARISON CT HEAD_BRAIN WO CONTRAST, ACC: [id number], dated 2024-09-05 14:24:17; RADIOLOGY EXAM - CT (IMAGES ONLY, NO REPORT), ACC: [id number], dated 2024-09-05 11:06:25 TECHNIQUE Axial images obtained [...] carotid artery show atherosclerotic disease with resultant [id number] luminal stenosis of the right cavernous internal [...] the cavernous internal carotid arteries with resultant [id number] 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 5. Multiple prominent mediastinal lymph nodes, which could represent reactive lymph nodes. RADIOLOGY EXAM - CT (IMAGES ONLY, NO REPORT) Final Result This is an imaging study not interpreted or resulted by a [facility] or [facility] contracted radiologist. CT HEAD/BRAIN WO CONTRAST Final [...] for further evaluation. A request to the corporate administrative assistant was placed 09/05/2024, 3:02 pm to notify the ordering clinician that the report is [facility] for review. 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), BPH who initially presented to [facility] from assisted living facility for [...] medical condition Neuro on board, rreviewed the [facility] 09/12 and suggested to start ASA 81 Cw Lipitor 40 daily Zio patch on dc Neuro checks Q4 Cw keppra 500 BID Cw WELDING MACHINE OPERATOR ARC citalopram Pt was started on valproate 250 [...] on chronic HF reduced EF CAD Hx MO s/p PCI with 5 stents HTN Weaned down from HFNC to NC this morning, cw supplemental O2 to maintain SPO2 more than 88% Resp driven protocol, spirometry and flutter valve therapy Duonebs q4 prn Fu cards recs Monitor on tele Started lasix 40 iv bid TTE 09/06 showed an EF 30-34%, no evidence of thrombus, no comment on PFO Increased WELDING MACHINE OPERATOR ARC lisinopril to 10 mg daily Started on cardizem 60 mg Q6H in ICU?? Reached out to cardio to confirm and pt already has reduced EF, if ok to switch to WELDING MACHINE OPERATOR ARC metoprolol for now and to keep lisinopril at 10 to allow room for diuretics, waiting to hear back PRN labetalol 10 mg for SBP > 160 mmHg Type 2 DM not on care home insulin with CKD stage 3b FS ACHS [...] PROGRESS NOTE - Stroke / Vascular Neurology [facility] [address] Name: Goran Hester [place] [facility] Date: 09/12/2024 Time: 5:25 PM SUBJECTIVE: Goran Hester is a 89 year old patient initially seen for 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 Patient was transferred from [...] mg 40 mg IV Push BID (0900,1600) Michlele Kaur MD sodium bicarbonate tab 325 mg [...] Recent Vital Signs: BP: 142 mmHg/73 mmHg (09/12/24 1517) Pulse: 87 (09/12/241516) Resp: 20 (09/12/241516) Temp: 36.72 C (09/12/241516) Temp Summary: Temp Min: 36.6 C (97.9 F) Max: 37.4 C (99.3 F) SpO2: 98 % (09/12/241599) O2 flow rate: 6 L/MIN (09/12/24 1600) Supplemental O2 Delivery: Intermediate Nasal Cannula (09/12/241599) Weight: 98.9 kg (218 lb 1.6 oz) [...] any extremities Reflexes: did not assess National [employer] Stroke Scale: 1A. LOC: 1 [...] with PMHx of HTN, CAD, hx of MO s/p stenting that presented with L temporal IPHafter being found down at his intermediate. Given MRI findings of surrounding ischemic burden, [...] likely relates to delirium. 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)who initially presented to [facility] from assisted living facility for [...] yes CONSTITUTIONAL DATA: BP: 172 mmHg/75 mmHg (09/11/24 2344) Pulse: 78 (02/16/25 2329) Resp: 20 (09/11/242328) Temp: 36.61 C (09/11/242204) [...] for agitation -Keppra 500 mg BID -Continue WELDING MACHINE OPERATOR ARC citalopram -Delirium precautions; light on during the day, maintain hearing aids, eyeglasses, reorient during the day, physical activity, encourage OOB -Sleep protocol -CVM at bedside Acute hypoxic respiratory failure Pulmonary edema HFeEF CAD Hx MO s/p PCI with 5 stents HTN -On HFNC, wean as able -Has been receiving lasix PRN; continue to assess fluid/ volume status and administer as needed -Respiratory driven protocol -Duonebs Q4 PRN -TTE 09/06 showed an EF 30-34%, no evidence of thrombus, no comment on PFO -Increased WELDING MACHINE OPERATOR ARC lisinopril to 10 mg daily -Recommend Cardiology consult in AM for further recs/ optimization -Started on cardizem 60 mg Q6H in ICU -Holding WELDING MACHINE OPERATOR ARC amlodipine -PRN labetalol 10 mg for SBP [...] PM EST Nursing Critical Care Response Note [address] [address] Name: Goran Hester Date: 09/12/2024 Time: 12:10 AM Event [place]: [facility] Area: AP4 In the role of the Critical Response Nurse I was involved in the care of this patient. Method of notification to the critical care response nurse: Rapid response team notification Rounding on this unit Reason for notification or follow up: Respiratory distress Observations/Interventions/Assessment: When on unit sewrive ordered a ABG and tank charger asked me to draw it. ABG was drawn and sent to lab. 2300 STAFFING OPERATIONS MANAGER called for resp distress pt desaturated on 3 L NC VS HR 92 RR 32 SpO2 92 on 5 LNC BP 189/87 pt lethargic (Ativan 1 mg IVP was given at 2130) Service at bedside ordered a CXR and HFNC. Resp therapy placed pt on HFNC Service consulted [facility]. [facility] med at bedside. Lasix 20mg IVP ordered and given by primary RN . Decision made to keep pt on unit. Will continue to monitor pt Outcome/Plan CRN can be contacted via [place] Text: [facility] Critical Response Nurse. * Cathy Mcneal DO - 09/11/2024 3:32 PM EST TRANSFER RECEIVING NOTE - Neurology [address] [address] Name: Goran Hester [place] [facility] [facility] HANDOFF COMMUNICATION: Sending patient service: [facility] Soraya Accepting service: Neurology Stroke Sending attending aware of patient and transfer: yes Receiving attending aware of patient and transfer: yes Name of receiving attending provider: Sagar Ohara Patient care is being assumed by receiving service: 3:35 PM in current location Reason for transfer: downgrade from ICU SUBJECTIVE: Patient is an 89yo M with PMHx of HTN, T2DM, DLD, MO s/p 5 stents, stroke that presented with [...] to new onset urinary retention. From an IPH standpoint, he has been stable. The ICU [...] rehab, then returning to assisted living at [facility] to live with his again. Patient was [...] 30 g of glucose Oral PRN Cathy Mcenal DO glucose chew tab 16 g 16 [...] Drop 1 Drop Both eyes Daily 1900 Cathy Mcneal DO chlorHEXIDINE (Periogard) 0.12 % oral rinse 15 mL 15 mL Oral mucosal membrane BID (08,1999) Cathy Mcneal DO Oral Hygiene: Mouth Swab [...] 1.4* 1.4* HbA1c 6.9% LDL 42 IMAGING: [facility] 09/06/24 IMPRESSION: 1. Continued evolution of left [...] Melatonin 6mg qHS New HFrEF Hx of MO s/p 5 stents - Consult cardiology in AM Urinary Retention - Pimentel in place - WELDING MACHINE OPERATOR ARC finasteride 5mg daily - Tamsulosin 0.4mg daily - Plan for voiding trial on 09/12 T2DM - Hold WELDING MACHINE OPERATOR ARC meds - Medium dose SSI ACHS LLE [...] on this start low dose aspirin. 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) who initially presented to [facility] for change in mentation and [...] OBJECTIVE: Vital Signs (Most Recent): Pulse: 77 (09/11/24 06) BP: 159/64 (09/11/24599) Resp: 24 (09/11/24599) Temp: [...] Extremities: No LE edema noted Male : pimentel Skin: Clean dry intact no jaundice Neuro: [...] with neurosurg for an end date) On WELDING MACHINE OPERATOR ARC meds of citalopram Melatonin at night PULMONARY / RESPIRATORY: Hypertensive flash pulmonary edema, resolved on 09/08 s/p diuresis & BiPAP Acute hypoxic respiratory failure Respiratory driven protocol On 1L NC, wean as tolerated, maintain sats >92% CARDIOVASCULAR: History of MO s/p PCI with 5 stents placed in the past Coronary artery disease History of hypertension History of hyperlipidemia TTE 09/06 showed an EF 30-34%, no evidence of thrombus, no comment on PFO Holding WELDING MACHINE OPERATOR ARC antihypertensives and other meds including lisinopril, amlodipine, metoprolol, aspirin,plavix, atorvastatin 40 QHS Hold ASA X 1 week from insult, resume after 09/12 Holding amlodipine On lisinopril WELDING MACHINE OPERATOR ARC dose - increase to 10 daily Added [...] this AM Replete lytes as indicated. On WELDING MACHINE OPERATOR ARC finasteride Add flomax today INFECTIOUS DISEASES: No active concerns ENDOCRINE: Type II diabetes mellitus Medium dose SSI, accuchecks AC/HS hours, hypoglycemia protocol Holding all WELDING MACHINE OPERATOR ARC oral antihyperglycemics HEMATOLOGIC/ONCOLOGIC: VTE/DVT Prophylaxis: chemoprophylaxis with [...] Marlys Olson DO, MS General Surgery PGY4 [facility] Cosigned by Scott Frankel MD at 09/11/2024 1:11 PM EST Associated attestation - Scott Frankel MD - 09/11/2024 1:11 PM EST Brief synopsis: Goran Hestre presented on 09/05/2024 with Left MCA stroke [...] Q6 scheduled - Melatonin 6 QHS - WELDING MACHINE OPERATOR ARC citalopram - Increase Diltiazem to 60 Q6 - Increase Lisinopril 10 - o/p Vascular surgery evaluation - Continue Carb consistent diet - WELDING MACHINE OPERATOR ARC PPI - Finasteride WELDING MACHINE OPERATOR ARC - Start Flomax 4 mg - PT/OT [...] / EGS / Trauma * Andre Olson, DO - 09/10/2024 3:01 PM EST CCM - PROGRESS NOTE [facility] [address] Name: Goran Hester [place] [facility] Date: 09/10/2024 Date of admission: 09/05/2024 Hospital length of stay: 5 days PATIENT DESCRIPTION: The patient is a 89 year old male with PMHx significant for MO s/p PCI X 5 with stents placed (lastMI 08/2022 complicated by 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) who initially presented to [facility] for change in mentation and [...] him to get a regular diet Holding WELDING MACHINE OPERATOR ARC meds of citalopram - restart Melatonin at night PULMONARY / RESPIRATORY: Hypertensive flash pulmonary edema, resolved on 09/08 s/p diuresis & BiPAP Acute hypoxic respiratory failure Respiratory driven protocol On 6:L NC, wean as tolerated, maintain sats >92% CARDIOVASCULAR: History of MO s/p PCI with 5 stents placed in the past Coronary artery disease History of hypertension History of hyperlipidemia TTE 09/06 showed an EF 30-34%, no evidence of thrombus, no comment on PFO Holding WELDING MACHINE OPERATOR ARC antihypertensives and other meds including lisinopril, amlodipine, metoprolol, aspirin,plavix, atorvastatin 40 QHS Hold ASA X 1 week from insult, resume after 09/12 Restart amlodipine at 5 and lisinopril WELDING MACHINE OPERATOR ARC dose for this AM PRN labetalol 10mg [...] Last Bowel Movement: 09/09/24 (09/09/242099) Stool Description: Small;Brown (09/09/242099) Bowel Regimen: Not able to give, [...] and doing well with that. Holding all WELDING MACHINE OPERATOR ARC oral antihyperglycemics HEMATOLOGIC/ONCOLOGIC: VTE/DVT Prophylaxis: chemoprophylaxis with [...] N/A Pimentel: N/A Disposition: keep in ICU :[id number]} Patient's decisional capacity: does not have capacity to make decisions Communication with Patient/Family: Daily discussions held with children. Spoke with daughter in person. All questions answered. Patient seen and discussed with Dr. Marlys Olson DO, MS General Surgery PGY4 [facility] Cosigned by Scott Frankel MD at 09/11/2024 [...] QD - Speech re-eval tomorrow - Finasteride WELDING MACHINE OPERATOR ARC - Replace pimentel catheter - WELDING MACHINE OPERATOR ARC PPI equivalent - PT/OT Concurrent plan as [...] Mosley DO - 09/09/2024 9:00 AM EST [facility] - PROGRESS NOTE [facility] [address] Name: Goran Hester [place] [facility] Date: 09/09/2024 Date of admission: 09/05/2024 Hospital length of stay: 4 days PATIENT DESCRIPTION: The patient is a 89 year old male with PMHx significant for MO s/p PCI X 5 with stents placed (lastMI 08/2022 complicated by 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) who initially presented to [facility] for change in mentation and [...] Speech reevaluated today, recommended maintain NPO Holding WELDING MACHINE OPERATOR ARC meds of citalopram PULMONARY / RESPIRATORY: Hypertensive flash pulmonary edema, resolved on 09/08 s/p diuresis & BiPAP Acute hypoxic respiratory failure Respiratory driven protocol On 4L nasal cannula, wean as tolerated, maintain sats >92% CXR ordered today CARDIOVASCULAR: History of MO s/p PCI with 5 stents placed in the past Coronary artery disease History of hypertension History of hyperlipidemia TTE 09/06 showed an EF 30-34%, no evidence of thrombus, no comment on PFO Holding WELDING MACHINE OPERATOR ARC antihypertensives and other meds including lisinopril, amlodipine, [...] accuchecks q6 hours, hypoglycemia protocol Holding all WELDING MACHINE OPERATOR ARC oral antihyperglycemics HEMATOLOGIC/ONCOLOGIC: VTE/DVT Prophylaxis: chemoprophylaxis with [...] keep in ICU until off precedex drip :[id number]} Patient's decisional capacity: does not have capacity [...] Care / EGS / Trauma * Andre Olson DO - 09/08/2024 8:03 AM EST CCM - PROGRESS NOTE [facility] [address] Name: Goran Hester Location: [facility] Date: 09/06/2024 Time: 8:38 AM PATIENT DESCRIPTION: The patient is a 89 year old male with hx of admitted for spontaneous intracranial hemorrhage. Per lifeflight patient was at [facility] and experienced change in mental status with disorientation and physical agitation. The patient was imaged 09/05/24 0128 and imaging read at 1118 found to have 4.1 x 2.8 cm intraparenchymal hematoma within the left temporal lobe. He received 2g Keppra and IV magnesium for hypomagnesemia and was [facility]eflight[place] [facility] Examining the patient on arrival he is Alert but confused and only oriented to self. Follows commands, does not endorse any pain. Son arrived 1645 per report patient has PMH MO x5 w/ stents. 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 Patient lives at [facility] living in [facility]. HPI/EVENTS OF NOTE: During evening sign out [...] Speech eval cleared for a diet 09/07 WELDING MACHINE OPERATOR ARC meds: - holding for now given agitation [...] Holding ASA, Plavix, lisinopril 5 daily Additional WELDING MACHINE OPERATOR ARC meds - holding for now given agitation [...] Mag, Phos, iCa BUN/Cr /.7 unknown baseline IVF at 50 cc/hr - continue in the meantime Pimentel removed 09/07 Holding WELDING MACHINE OPERATOR ARC finasteride 5 mg daily - holding for [...] Last 48 hours: No data recorded Holding WELDING MACHINE OPERATOR ARC glipizide, metformin Starting SSI with glucoses Q6H [...] - protocol Central Line Necessity Reviewed: N/A Loren: N/A Disposition: Keep in ICU pending precedex infusion and improvement of agitation Patient's decisional capacity: does not have capacity to make decisions Communication with Patient/Family: No meeting held. Goals of Care: improve mental status Patient seen and discussed with Dr. Marlys Olson DO, MS General Surgery PGY4 [facility] Cosigned by Scott Frankel MD at 09/09/2024 [...] 7:29 PM EST CCM - PROGRESS NOTE [facility] [address] Name: Goran Hester Location: [facility] Date: 09/07/2024 Time: 7:36 PM During [...] BP: 171 mmHg/73 mmHg (09/07/241899) Pulse: 91 (09/07/240) Resp: 29 (09/07/241899) Temp: 37.39 C (09/07/24 [...] PM EST TRANSFER RECEIVING NOTE - Neurology [facility] [address] Name: Goran Hester Current Location: [place] [address]/A HANDOFF COMMUNICATION: Sending patient service: ANTOINETTE Lira [...] with PMHx of HTN, CAD, hx of MO s/p stenting that presented with L temporal IPHafter being found down at his intermediate. Given MRI findings of surrounding ischemic burden, [...] mL Nebulizer Q4H PRN Shala Mosley, DO amLODIPine (Norvasc) tab 5 mg 5 mg Oral Daily(AM) Andre Olson Atef, DO atorvaSTATin (Lipitor) tab 40 mg 40 mg Oral Q 1700 WhitneyAndre desir Ateriki, DO Benzonatate (Tessalon Perles) cap 100 mg 100 mg Oral Q8H PRN Andre Olson Atef, DO citalopram (Celexa) oral soln 10 mg 10 mg Oral Daily(AM) Andre Olson Atef, DO dorzolamide (Trusopt Ocumeter Plus) 2 % ophthalmic solution 1 Drop 1 Drop Both eyes BID(AM/PM) Andre Olson Ateriki, DO [START ON 09/08/2024] Famotidine (Pepcid) tab 20 mg 20 mg Oral Daily(AM) Shala Mosley DO Finasteride (Proscar) tab 5 mg 5 mg Oral Daily(AM) Andre Olson, DO levETIRAcetam (Keppra) tab 500 mg 500 mg Oral BID(AM/PM) Shala Mosley, Metoprolol Tartrate (Lopressor) tab 25 mg 25 mg Oral BID(AM/PM) Andre Olson, cycloSPORINE (Restasis) 0.05 % ophthalmic emulsion 1 Drop 1 Drop Both eyes BID(AM/PM) Shala Mosley DO hEParin inj 5,000 Units 5,000 Units Subcutaneous Q8H Shala Mosley DO polyvinyl alcohol-povidone PF (Refresh) ophthalmic solution 1 Drop 1 Drop Both eyes Daily 1900 Shala Mosley DO chlorHEXIDINE (Periogard) 0.12 % oral rinse 15 mL 15 mL Oral mucosal membrane BID (799,1999) Power Barba MD Oral Hygiene: Mouth Swab [...] (09/07/241499) Resp: 27 (09/07/241499) Temp: 37.61 C (09/07/241599) Temp Summary: Temp Min: 36 C (96.8 [...] 20 CREATININE mg/dL 1.7* 1.7* 1.7* IMAGING: [facility] 09/06/24 IMPRESSION: 1. Continued evolution of left [...] with thin liquids DVT ppx: heparin Dispo: PT/OT/SHOVEL MECHANIC, likely placement Patient seen and discussed with [...] 9:53 AM EST CCM - PROGRESS NOTE [facility] [address] Name: Goran Hester Location: [facility] Date: 09/06/2024 Time: 8:38 AM PATIENT DESCRIPTION: The patient is a 89 year old male with hx of admitted for spontaneous intracranial hemorrhage. Per lifeflight patient was at [facility] and experienced change in mental status with disorientation and physical agitation. The patient was imaged 09/05/24 0128 and imaging read at 1118 found to have 4.1 x 2.8 cm intraparenchymal hematoma within the left temporal lobe. He received 2g Keppra and IV magnesium for hypomagnesemia and was [facility]eflighted [place] [facility] Examining the patient on arrival he is Alert but confused and only oriented to self. Follows commands, does not endorse any pain. Son arrived 1645 per report patient has PMH MO x5 w/ stents. 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 Patient lives at [facility] in [facility]. HPI/EVENTS OF NOTE: No acute events overnight. [...] this AM and cleared Restart the following WELDING MACHINE OPERATOR ARC meds: Citalopram 10 daily Cyclosporine and dorzolamide eye ointment/drops PULMONARY / RESPIRATORY: No acute issues On RA CARDIOVASCULAR: PMH Mix5 w/ stents, HTN, possible hx arrythmia with loop recorder device in place NSR w/ PVCs at OSH HTN, HLD Nicardipine 5mg/hr goal <140 - currently off, per gtt protocol Labetalol 10mg q1Hr PRN SBP>140 Holding WELDING MACHINE OPERATOR ARC metoprolol mIVF 75cc/hr OSH trop 33.9 ECHO [...] Plavix, lisinopril 5 daily Restart the following WELDING MACHINE OPERATOR ARC meds: Amlodipine 2.56 mg daily tomorrow Metoprolol [...] baseline DC IVF DC Pimentel catheter Restart WELDING MACHINE OPERATOR ARC finasteride 5 mg daily INFECTIOUS DISEASES: Leukocytosis 11.6 Resolved ENDOCRINE: No acute issues Blood Glucose Monitoring (BGM) Goal: 140-180 Glycemic Control: No protocol CYNDI Point of Care Glucose (Bedside) Measurements Most recent: Last 24 hours: No data recorded Last 36 hours: No data recorded Last 48 hours: No data recorded Holding WELDING MACHINE OPERATOR ARC glipizide, metformin HEMATOLOGIC: Patient on DAPT hx [...] Marlys Olson DO, MS General Surgery PGY4 [facility] Cosigned by Scott Frankel MD at 09/07/2024 [...] 8:21 AM EST NEUROLOGICAL SURGERY PROGRESS NOTE [address] [address] Name: Goran Hester [place] [facility] Date: 09/07/2024 Time: 8:21 AM SUBJECTIVE: NAEO [...] hours) Intake/Output Summary (Last 24 hours) at 09/07/2024 08 Last data filed at 09/07/2024 07 Gross per 24 hour Intake 2502.84 ml [...] PROGRESS NOTE - Stroke / Vascular Neurology [facility] [address] Name: Goran Hester Location: [facility] Date: 09/06/2024 Time: 12:27 PM SUBJECTIVE: Goran Hester is a 89 year old patient initially seen for L IPH after being found downat his intermediate. Changes since last visit: No acute events [...] 5,000 Units Subcutaneous Q8H Shala Mosley DO levETIRAcetam (Keppra) 500 mg in 100 [...] Recent Vital Signs: BP: 131 mmHg/46 mmHg (09/06/24 1100) Pulse: 57 (09/06/24 1100) Resp: 15 (09/06/24 1100) Temp: 36 C (09/06/24 1200) Temp Summary: Temp Min: 36 C (96.8 F) Max: 37.4 C (99.3 F) SpO2: 99 % (09/06/24 1100) O2 flow rate: 2 L/MIN (09/06/24 1200) Supplemental O2 Delivery: Nasal Cannula (09/06/24 1200) Weight: 97.8 kg (215 lb 9.8 oz) [...] and spontaneously Reflexes: did not assess National [employer] Stroke Scale: 1A. LOC: 1 [...] the cavernous internal carotid arteries with resultant [id number] luminal stenosis of the right cavernous internal [...] with PMHx of HTN, CAD, hx of MO s/p stenting that presented with L temporal IPHafter being found down at his intermediate. Given MRI findings of surrounding ischemic burden, [...] 8:38 AM EST CCM - PROGRESS NOTE [facility] [address] Name: Goran Hester Location: [facility] Date: 09/06/2024 Time: 8:38 AM PATIENT DESCRIPTION: The patient is a 89 year old male with hx of admitted for spontaneous intracranial hemorrhage. Per lifeflight patient was at [facility] and experienced change in mental status with disorientation and physical agitation. The patient was imaged 09/05/24 0128 and imaging read at 1118 found to have 4.1 x 2.8 cm intraparenchymal hematoma within the left temporal lobe. He received 2g Keppra and IV magnesium for hypomagnesemia and was [place] [facility] Examining the patient on arrival he is Alert but confused and only oriented to self. Follows commands, does not endorse any pain. Son arrived 1645 per report patient has PMH MO x5 w/ stents. 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 Patient lives at [facility] in [facility]. HPI/EVENTS OF NOTE: No acute events overnight. [...] warm, dry, intact: Neuro: sleepy, GCS 12 () LABORATORY VALUES: CBC Lab Results Component Value [...] protocol Labetalol 10mg q1Hr PRN SBP>140 Holding WELDING MACHINE OPERATOR ARC metoprolol mIVF 75cc/hr OSH trop 33.9 ECHO [...] Marlys Olson DO, MS General Surgery PGY4 [facility] Cosigned by Scott Frankel MD at 09/07/2024 [...] 7:52 AM EST NEUROLOGICAL SURGERY PROGRESS NOTE [address] [address] Name: Goran Hester [place] [facility]A Date: 09/06/2024 Time: 7:52 AM SUBJECTIVE: NAEO OBJECTIVE: Most recent vital signs: BP: 116 mmHg/39 mmHg (09/06/24699) Pulse: 59 (09/06/24699) Resp: 16 (09/06/24699) Temp: 36.78 C (09/06/24599) [...] 09/06/2024 0752 Last data filed at 09/06/2024 0700 Gross per 24 hour Intake 1471.93 ml [...] 1:50 PM EST CCM - PROGRESS NOTE [facility] [address] Name: Goran Hester [place] [facility]A Date: 09/05/2024 Time: 3:02 PM Date of admission: 09/05/2024 Hospital length of stay: 0 days Subjective PATIENT DESCRIPTION: The patient is a 89 year old male with hx of admitted for spontaneous intracranial hemorrhage. Per lifeflight patient was at [facility] and experienced change in mental status with disorientation and physical agitation. The patient was imaged 09/05/24 0128 and imaging read at 1118 found to have 4.1 x 2.8 cm intraparenchymal hematoma within the left temporal lobe. He received 2g Keppra and IV magnesium for hypomagnesemia and was lifeflighted [place] [facility] Examining the patient on arrival he is Alert but confused and only oriented to self. Follows commands, does not endorse any pain. Son arrived 1645 per report patient has PMH MO x5 w/ stents. 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 Patient lives at [facility] in [facility]. Called patient PCP awaiting records by fax EVENTS OF NOTE: 09/05/24 Admission to SICU as transfer from [facility] for [facility] ROS: Patient confused, intermittently answering questions appropriately. Objective CONSTITUTIONAL DATA / OBJECTIVE: Most Recent Vitals: BP: 139 mmHg/54 mmHg (09/05/24 1415) Pulse: 71 (09/05/24 1415) Resp: 21 (09/05/24 1415) Temp: 37.28 C (09/05/24 1400) Temp Summary: Temp Min: 37.3 C (99.1 F) Max: 37.3 C (99.1 F) SpO2: 96 % (09/05/24 1415) O2 flow rate: 2 L/MIN (09/05/24 1415) Supplemental O2 Delivery: Nasal Cannula (09/05/24 141) Average Vitals Overnight: Pulse Av.3 Min: 68 [...] an underlying lesion. Findings discussed with Dr. Seay at time of dictation. OSH CXR 09/05/24 [...] <140 Labetalol 10mg q1Hr PRN SBP>140 Holding WELDING MACHINE OPERATOR ARC metoprolol mIVF 75cc/hr OSH trop 33.9 GASTROINTESTINAL [...] Pimentel: N/A Disposition: keep in ICU Reported WELDING MACHINE OPERATOR ARC meds: Metoprolol succinate 50mg qHS Dorzolamide eye [...] normal variant or due to lve ( [place] product ) ST & T wave abnormality, consider lateral ischemia Abnormal ECG When compared with ECG of 08-Sep-2024 17:14, T wave inversion now evident in Lateral leads Ventricular Rate: 79 Atrial Rate: 79 CT Interval: 158 QRS Duration: 112 QT/QTc: 438/502 ms P-R-T Bartelso: 38 : 8 : 120 degrees * [...] Present Ventricular Rate: 84 Atrial Rate: 84 CT Interval: 170 QRS Duration: 114 QT/QTc: 412/486 ms P-R-T Bartelso: 36 : -12 : 78 degrees * Sumanth Teresa MD - 09/07/2024 1:25 PM ESTAssociated Order(s): EKG REASON FOR STUDY: measure QTc;measure QTc;Electrolyte abnorma CONCLUSIONS: Sinus rhythm with occasional Premature ventricular complexes High QRS voltage may be normal variant or due to lve ( [place] product ) Septal infarct , age undetermined Abnormal ECG When compared with ECG of 05-Sep-2024 14:09, Premature ventricular complexes are now Present Septal infarct is now Present Ventricular Rate: 86 Atrial Rate: 86 CT Interval: 164 QRS Duration: 106 QT/QTc: 416/497 ms P-R-T Bartelso: 35 : -8 : 55 degrees * Meet Watson DO - 09/05/2024 2:09 PM ESTAssociated Order(s): EKG REASON FOR STUDY: Notify provider if obtaining EKG;Chest pain CONCLUSIONS: Normal sinus rhythm Possible inferior infarct Ventricular Rate: 71 Atrial Rate: 71 CT Interval: 174 QRS Duration: 104 QT/QTc: 434/471 ms P-R-T Bartelso: 45 : 0 : 67 degrees documented in this encounter Consult Notes * Damaris Morgan MD - 09/13/2024 2:24 PM ESTAssociated Order(s): PSYCHIATRY CONSULT IP INITIAL PSYCHIATRY CONSULT NOTE Patient location: HOSPITAL. I was not in a hospital or clinic location. After connecting through [employer], patient was identified by name and date of and/or wristband checked. 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) was then informed that this was a [...] that I have reviewed their record in [employer] and presented the opportunity for them to [...] EKG Procedure Component Value Units Date/Time EKG [[id number]] Collected: 09/07/24 1325 Lab Status: Final result [...] Present Ventricular Rate: 86 Atrial Rate: 86 CT Interval: 164 QRS Duration: 106 QT/QTc: 416/497 ms P-R-T Bartelso: 35 : -8 : 55 degrees Impression: EKG [[id number]] Collected: 09/05/24 1409 Lab Status: Final result Updated: 09/09/24 0854 Narrative: REASON FOR STUDY: Notify provider if obtaining EKG;Chest pain CONCLUSIONS: Normal sinus rhythm Possible inferior infarct Ventricular Rate: 71 Atrial Rate: 71 CT Interval: 174 QRS Duration: 104 QT/QTc: 434/471 ms P-R-T Bartelso: 45 : 0 : 67 degrees Impression: [...] Delirium precautions I reviewed and updated the [place] Suicide Screen and Suicide Safety Plan as [...] were not included. CONSULT - Heart Failure [address] [address] Name: Goran Hester [place] [facility]A Date: 09/12/2024 Time: 11:04 AM REQUESTING SERVICE: Medicine G REASON FOR CONSULT: AHRF on HFNC PRESENTING PROBLEM: Goran Hester [facility] is seen in consultation for escalating oxygen requirement and diuresis . HPI: Goran is an 89yo with a past medical history that includes: MO, CKD St 3, dyslipidemia, CAD with several interventions/stents (2021 most recent per [facility] record), CVA 09/2022, HTN, DM, GERD, BPPV, skincancer, depression, hearing loss, glaucoma. 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 Bleed suspected to be the result of hemorrhagic conversation from ischemic stroke in the setting of uncontrolled HTN. He was previously on DAPT (aspirin and plavix)d/t hx of stents. Echo report from [facility], October 2023: -EF of 30-35% -global hypokinesis mildly concentric left ventricular hypertrophy -no valvular abnormalities. Echo obtained at [facility] 09/06/24 : -LV ejection fraction is 30-34% [...] Heart Failure Acute hypoxic respiratory failure CAD, MO, s/p several PCIs HTN EF found on echo this admission appears similar to one year ago. Will contact [facility] cardiology for most recent note/cath report. Troponin mildly elevated at 62 on 09/07/24. He is hypervolemic on exam and wt appears to have trended upward. Received 40mg IV lasix push this morning. Recommend lasix 40mg IV BID. Stop cardizem. 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 Continue Lisinopril 10mg [...] for the plan of care. * Delores Marin CCC-SHOVEL MECHANIC - 09/10/2024 9:18 AM ESTAssociated Order(s): ADULT SPEECH THERAPY CONSULT IP (ACUTE CARE REHAB) PROGRESS NOTE - Speech-Language Pathology [facility] [address] Name: Goran Hester [facility]/A Date: 09/10/2024 Time: 9:18 AM Patient Status: [...] as able and appropriate * Megan Nath [facility] - 09/08/2024 6:45 AM ESTAssociated Order(s): PHARMACY CONSULT IP PHARMACY SLEEP HYGIENE IP CONSULT [address] [address] Name: Goran Hester Location[place] [facility]A Date: 09/08/2024 Time: 6:45 AM Hospital [...] 3 mL 3 mL Nebulizer Q4H PRN Mosley, Shala, DO Benzonatate (Tessalon Perles) cap 100 mg 100 mg Oral Q8H PRN Andre Olson DO dexmedeTOMIDine (Precedex) 400 mcg in 100 mL infusion 0-1.5 mcg/kg/hr Intravenous Titrate Arnoldo Sawant, dorzolamide (Trusopt Ocumeter Plus) 2 % ophthalmic solution 1 Drop 1 Drop Both eyes BID(AM/PM) Andre Olson, DO Haloperidol Lactate (Haldol) 5 MG/ML inj 2.5 mg 2.5 mg IV Push Q15 Min PRN Arnoldo Sawant DO Isolyte-S pH 7.4 infusion Intravenous Continuous Andre Olson, labetalol (Trandate) inj 10 mg 10 mg Intravenous Q1H PRN Schuyler Waddell DO levETIRAcetam (Keppra) 500 mg in 100 mL ivpb *LOCKED DOSE* 500 mg IV Piggyback BID(AM/PM) Andre Olson, niCARdipine (CARDENE) 20 mg in 200 mL [...] Megan Nath RPh, PharmD, BCPS, BCCCP * Pochis, Leela Darling, RDN - 09/06/2024 1:51 PM EST CLINICAL NUTRITION CONSULT NOTE [address] [address] Name: Goran Hester [place] [facility]A Date: 09/06/2024 Time: 1:51 PM How patient was identified (select 2): Wristband and Medical record number Discussed in interdisciplinary rounds: Telma Hester is [...] (09/06/24 0600) Usual Body Weight: 95-96 kg [place] weight: 76.5 kg [place] Weight Based on BMI: 24.9 Adjusted ideal weight: 81.1 kg Interpretation of Weight Change Prior to Admission: No recent/significant weight change Weight Changes Since Admission: N/A Nutrition Prescription: Energy needs: 20-25 Kcal/kg Kcal/day: 2732-7134 Based on admission weight Protein needs: 1.0-1.2 [...] intervention. Leela Amezcua RDN, LDN Registered Dietitian [phone] Available via monEchelle * Mago Flood RN - 09/06/2024 11:34 AM ESTAssociated Order(s): CARE MANAGEMENT CONSULT IP Chart reviewed. Patient discussed with IDT . Care Management needs are undetermined at this time, pt is a transfer from [facility] s/p left temporal intraparenchymal hemorrhage and is awaiting MRI of brainand is currently requiring Cardene infusion. Care Management will continue to follow. * Soledad Bray, PT - 09/06/2024 10:35 AM ESTAssociated Order(s): ADULT PHYSICAL THERAPY CONSULT IP GENERAL EVALUATION - Physical Therapy [address] [address] Name: Goran Hester [place] [facility] Date: 09/06/2024 Time: 1035 Goran Hester is a/an 89 year old male. Patient Status: Inpatient Insurance: Payor: MEDICARE Plan: MEDICARE A AND B Product Type: *No Product type* Payor: [employer] [facility] ([place]) Plan: [employer] MEDICARE SUPPLEMENT Product Type: *No Product type* [...] Provided: Evaluation High Complexity 16 minutes - 89360: Patient was lethargic during treatment session. High [...] to/from Stand, and/or Stand Pivot Transfers with: uGevara x2 Demonstrate Ambulation: Guevara x2, least restrictive [...] care services which may include home health, intermediate, outpatient therapy or inpatient rehabilitation. The level [...] THERAPY CONSULT IP GENERAL EVALUATION- Occupational Therapy [address] [address] Name: Goran Hester Location[place] [facility]A Date: 09/06/2024 Time: 10:35 AM HPI: Per EPIC, "The patient is a 89 year old male with hx of admitted for spontaneous intracranial hemorrhage. Per lifeflight patient was at [facility] and experienced change in mental status with disorientation and physical agitation. The patient was imaged 09/05/24 0128 and imaging read at 1118 found to have 4.1 x 2.8 cm intraparenchymal hematoma within the left temporal lobe. He received 2g Keppra and IV magnesium for hypomagnesemia and was lifeflighted to [facility] Examining the patient on arrival he is Alert but confused and only oriented to self. Follows commands, does not endorse any pain. Son arrived 1645 per report patient has PMH MO x5 w/ stents. 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 Patient lives at [facility] in [facility] [place]. Called patient PCP awaiting records by fax" Patient Status: Inpatient Insurance: Payor: MEDICARE Plan: MEDICARE A AND B Product Type: *No Product type* Payor: [email or web address] [facility] ([place]) Plan: [employer] MEDICARE SUPPLEMENT Product Type: *No Product type* [...] Provided: Evaluation Moderate Complexity 15 minutes - 29192: Patient was lethargic duringtreatment session. Moderate complexity [...] Please consider post-acute care services which may includecritical access hospital, intermediate, outpatient therapy or inpatient rehabilitation. The level [...] to 5 times per week (09/06/241034) * aMriya Jewell SLP - 09/06/2024 8:41 AM ESTAssociated Order(s): ADULT SPEECH THERAPY CONSULT IP (ACUTE CARE REHAB) CLINICAL BEDSIDE SWALLOW EVALUATION - Speech-Language Pathology [address] [address] Name: Goran Hester [place] [facility]A Date: 09/06/2024 Time: 8:42 AM Patient Status: Inpatient Insurance: Payor: MEDICARE / Plan: MEDICARE A AND B / Product Type: *No Product type* / GENERAL INFORMATION: Admission Date: 09/05/2024 Referring Physician: Power Barba MD Pertinent Medical History: Per medical chart review, "Goran Hester is a 89 year old, right-handedmale with an unknown past medical history; presents to [facility] via transfer from an outside hospital after presenting with an altered mental status. Medical imaging completed at the outside hospital showed a left temporal intraparenchymal hemorrhage. The patient was transferred to [facility] for definitive care. Upon arrival a repeat [...] the cavernous internal carotid arteries with resultant [id number] luminal stenosis of the right cavernous internal [...] Yes The patient/RN was in Agreement Whitney Maldonado MD - 09/05/2024 5:55 PM ESTAssociated Order(s): NEUROLOGY CONSULT IP CONSULT - Stroke / Vascular Neurology [facility] [address] Name: Goran Hester Location: [facility]/A Date: 09/05/2024 Time: 5:55 PM Date and Time Service was Contacted: Time: 1730 Date: 09/05/2024 REQUESTING SERVICE: Critical Care Medicine [...] altered level of consciousness. He lives in [facility] living, [facility] yesterday evening but found disoriented and agitated this morning. He was brought to [facility] [address] and found to have a L temporal IPH, lifeflighted to [facility] for higher level of care and neurosurgical consult. On interview, he has a waxing and waning LOC, unable to consistently follow commands or provide meaningful history; aphasic with perseveration, repeating previous words. 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 LOC: 1 [...] disability 5 - Severe disability bedridden Modified Bartholomew Scale = 3 - Moderate disability. Requires [...] yo male with PMH of prior stroke, MO, CAD with stenting, who presented to [facility] due to altered mental status and agitation this AM with [facility] yesterday evening; found to have acute intraparenchymal hemorrhage in the L temporal lobe. Transferred to [facility] [place] level of care. NIHSS of [...] Order(s): NEUROSURGERY CONSULT IP CONSULT - Neurosurgery [facility] [address] Name: Goran Hester Location: [facility] A[facility]/A Date: 09/05/2024 Time: 2:03 PM REQUESTING SERVICE: Critical Care Medicine REASON FOR CONSULT: "Evaluation and recs for intraparenchymal hemorrhage" HPI: Goran Hester is a 89 year old, right-handed male with an unknown past medical history; presents to [facility] via transfer from an outside hospital after presenting with an altered mental status. Medical imaging completed at the outside hospital showed a left temporal intraparenchymal hemorrhage. The patient was transferred to [facility] for definitive care. Upon arrival a repeat [...] mucosal membrane BID (08,1999) Power Barba MD Famotidine (Pepcid) inj 20 [...] with attending Demond Batista PA-C Lead Physician Guide Rail Cleaner, Department of Neurosurgery Track Oiler of Neurosurgery, [facility] 09/05/2024 (This note was completed using the [...] the transfer center for a call at [phone] ext [phone] re: Goran Hester DX: spontaneous intracranial head bleed- no trauma From: [facility] ED Received the above message via [employer]hent Text Returned call to the telephone number [...] measures taken/full heroics. Recommend emergent transfer to [facility] for further monitoring and available NSG/endovascular services Communicated directly with ICU team and NSG/endovascular team documented in this encounter Nursing Notes * Chelsi Han RN - 09/20/2024 9:30 PM EST master steam yacht CM paged to clarify dc time for [...] COVID-19 outbreak. Patient was promptly returned to [facility] 4 at 1700 by EMS after [...] breathing. 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 PT placed on HFNC and lasix administered. IV labetalol given for hypertension. * Tierra Sahu RN - 09/05/2024 3:49 PM EST Dual Licensed Skin Assessment completed by Tierra Pearl and Mayda Lundberg. The patient is/has a N/A Skin Breakdown (includes non blanchable erythema): No Right knee scab Left underwood scab Dry skin with scattered ecchymosis and small scabs documented in this encounter Miscellaneous Notes * Care Plan - Jillian Merida RN [...] discharge * Ancillary Progress Note - Mariya Jewell SLP - 09/20/2024 11:22 AM EST PROGRESS NOTE - Speech-Language Pathology [facility] [address] Name: Goran Hester Location[place] [facility] A[facility]/A Date: 09/20/2024 Time: 11:22 AM Patient [...] orient him. Pt believed he was at [facility] and that therapist was a student there. Difficulty attending to structured tasks as he repeatedly asked therapist questions about campus and classes. Required max redirections to task with minimal benefit. Pt's daughter reported discharge to rehab in [place]. Diet Recommendations: -Regular solids -Thin liquids -Meds [...] 3:19 PM EST CLINICAL NUTRITION CONSULT/PROGRESS NOTE [facility] [address] Name: Goran Hester Location: [facility] A[facility]/A Date: 09/19/2024 Time: 3:22 PM How [...] Last Bowel Movement: 09/18/24 (per epic) (09/19/24 07) Cognition: Confused Skin: Intact Enteral access: none [...] 30.49 kg/m. Usual Body Weight: 95-96 kg [place] weight: 76.5 kg [place] Weight Based on BMI: 24.9 Interpretation of Weight Change Prior to Admission: No recent/significant weight change Weight Changes Since Admission: down 1.3 kg Nutrition Prescription: Energy needs: 20-25 Kcal/kg Based on admission weight Kcal/day: 4910-4957 Protein needs: 1.0-1.2 gm/kg Based on admission [...] EST CARE MANAGEMENT - ADULT DISCHARGE NOTE [facility] [address] Name: Goran Hester Location: [facility] A[facility]A Date: 09/19/2024 Time: 1:27 PM The [...] discharge: Yes (09/19/241324) Discharge Transportation: Wheelchair Van (09/19/24 132) Date of scheduled discharge transportation: 09/20/24 (09/19/241324) Time of scheduled discharge transportation: 1400 (09/19/241324) Patient declined post-hospital transition of care recommendation: N/A (09/19/24 132) Final Discharge Plan (Complete only at time of Discharge): SNF (09/19/24 1326) Destination - Admitted Since 09/05/2024 Service Provider Services Address Phone Fax Patient Preferred Last Updated Erin [facility] [address] [place] [address] [phone] -- Susan Butler, [place] 09/19/20246 Narrative: Discharge destination time-out called during [...] CM discussed transport options, Goran qualifies for w[facility] van, son Jose Antonio agrees' with payment. Transport claimed for 1400 Thursday. Facility updated. * Ancillary Progress Note - Vita Bustamante COTA/Yadi - 09/19/2024 11:01 AM EST PROGRESS NOTE - Occupational Therapy [facility] [address] Name: Goran Hester Location: [facility]A Date: 09/19/2024 Time: 11:01 AM Goran Hester is a 89 year old male. Patient Status: Inpatient Insurance: Payor: MEDICARE Plan: MEDICARE A AND B Product Type: *No Product type* Payor: [facility] ([employer] [place]) Plan: SECURITY 65 MEDICARE SUPPLEMENT Product Type: *No Product type* Patient Seen: at bedside, nursing cleared patient for therapy Patient Identified By: Name, ID Band and Date Diagnosis: ICH (09/19/241100) Status of treatment: Treatment completed (09/19/241100) Orders: OT evaluation and treatment (09/19/241100) Weight Bearing Status: Weight bearing as tolerated (09/19/24 110) Precautions: Alarms;Falls;Safety;Oxygen (Intermediate nasal cannula) (09/19/24 1101) Total Treatment Time: 24 (09/19/24 110) Subjective: Patient agreeable. Pain: No complaints of pain. Observations Consciousness: Alert (09/19/241100) Orientation: Person;Place;Time (knew month not year, place with choices) (09/19/24 110) Cognitive Limitations: Attention to task;Impulsivity;Processing;Problem solving;Visual attention (09/19/241100) Psychosocial: Patient can communicate basic needs (09/19/241100) Sitting posture: Forward head;Rounded shoulders (09/19/241100) Standing posture: Forward head;Rounded shoulders (09/19/241100) Safety awareness: Needs cueing supervision. (09/19/241100) Current Functional Status: Activities of Daily Living: Self Care Grooming: Supervision (wash face) (09/19/241100) Dressing Lower Body: Moderate Assistance (don scrub pants, doff/don socks with contact guard assistance) (09/19/241100) Functional Ambulation Assistive Device: Rolling walker (09/19/241100) Distance in feet:: 10 (09/19/241100) Level of Assistance: Minimal Assistance (09/19/241100) Bed Mobility Supine-Sit: Minimal Assistance (09/19/241100) Sit-Supine: Minimal Assistance (09/19/241100) OT Transfers Sit-Stand: Moderate Assistance (09/19/241100) Stand-Sit: Moderate Assistance (09/19/241100) Toilet: Moderate Assistance (09/19/241100) Balance Sit (Static): Fair (09/19/241100) Sit (Dynamic): Fair (-) (09/19/241100) Stand (Static): Fair (-) (09/19/241100) Stand (Dynamic): Poor (+) (09/19/241100) Patient Education Education Topic: Role of OT (09/19/241100) Review of Precautions: Safety;Fall (09/19/241100) Method of Education: Verbalized to patient (09/12/24 2415) Education Provided to: Patient (09/19/241100) Response to Education: Receptive and agreeable to education (09/19/241100) Barriers to learning: Medical status (09/19/241100) Preferred learning method: Combination (09/19/241100) Alarm Status Patient positioned in: Bed (09/19/241100) With: Bed alarm intact and functioning and call alfred in reach (09/19/241100) Treatment Provided: Self Long Term Management Trainin minutes Deficits requiring O.T. treatment [...] post-acute care services which may include home health,intermediate, outpatient therapy or inpatient rehabilitation. The level [...] A lot (09/19/241100) OT AM-PAC Score: 15 (09/19/24 110) OT AM-PAC t-Scale Score: 34.69 (09/19/241100) HLM [...] AM EST PROGRESS NOTE - Physical Therapy [address] [address] Name: Goran Hester [place] [facility]: 09/19/2024 Time: 10:36 AM Goran Hester is a/an 89 year old male. Patient Status: Inpatient Insurance: Payor: MEDICARE Plan: MEDICARE A AND B Product Type: *No Product type* Payor: [facility] ([facility] Plan: [employer] MEDICARE SUPPLEMENT Product Type: *No Product type* Patient Seen: at bedside, nursing cleared patient for therapy Patient Identified By: Name, ID Band and Date Diagnosis: ICH (09/19/241035) Status of treatment: Treatment completed (09/19/241035) Orders: PT evaluation and treatment (09/19/241035) Precautions: Alarms;Falls;Safety;Oxygen (KENAITZE, 6L O2) (09/19/241035) Total Treatment Time--free text: [...] care services which may include home health, intermediate, outpatient therapy or inpatient rehabilitation. The level [...] EST CARE MANAGEMENT - ADULT TRANSITION NOTE [facility] [address] Name: Goran Hester [place] [facility] Date: 09/16/2024 Time: 1:52 PM Risk Stratification Risk Stratification Psycho Social / Medical Concerns Identified: Adjustment to illness/injury;New serious diagnosis (09/06/241421) Accessed [facility] to connect patients to social care resources: No (09/06/241421) OBRA or OPTIONS needed for placement: No (09/06/241421) Readmission Risk Score: 25.81 (09/16/24 1201) AM-PAC Score With Stairs : 13 (09/16/24 0900) Caregiver Information Emergency Contacts Name Relation Home Work Mobile JOSE ANTONIO HESTER Adult Child [phone] Tonya Waddell Adult Child [phone] Other Contacts None on File Transition of Care Checklist Transition of Care Checklist (aka Readmission Risk Score) Discharge Disposition: (Goal is to return home to [facility] where he shares an apartment with [...] 09/17 BLS Left VM for Rika Ohara @[facility] updated on same Anticipated Transportation at Discharge: [facility] Patient/Family Expectations: SNF Transition Planning Transition Planning Transition Plan/Considerations: Needs uncertain at this time - Continue monitoring for needs;Discussed at Interdisciplinary Team / Boost Rounds (09/06/241433) [facility] Quality Rating provided to patient: No (09/06/241433) [...] - 09/15/2024 3:30 PM EST Physical Therapy [address] [address] Name: Goran Hester [place] [facility] Date: 09/15/2024 Time: 3:30 PM Discussed [...] PM EST PROGRESS NOTE - Physical Therapy [address] [address] Name: Goran Hester [place] [facility] Date: 09/15/2024 Time: 3:08 PM Goran Hester is a/an 89 year old male. Patient Status: Inpatient Insurance: Payor: MEDICARE Plan: MEDICARE A AND B Product Type: *No Product type* Payor: [facility] ([employer]) Plan: SECURITY 65 MEDICARE SUPPLEMENT Product Type: *No Product type* Patient Seen: at bedside, nursing cleared patient for therapy Patient Identified By: Name, ID Band and Date Diagnosis: ICH (09/15/24 150) Status of treatment: Treatment completed (09/15/24 150) Orders: PT evaluation and treatment (09/15/24 150) Precautions: Alarms;Falls;Safety;Oxygen (6L O2, KENAITZE) (09/15/24 150) Total Treatment Time--free text: 35 (09/15/24 150) Subjective: Patient was agreeable to work with physical therapy services. Pain: No complaints of pain P.T. Bed Mobility Supine-Sit: Contact Guard (09/15/24 150) Sit-Supine: Minimal Assistance (09/15/24 150) Transfers Sit-Stand: Minimal Assistance (09/15/24 150) Stand-Sit: Minimal Assistance (09/15/24 150) Ambulation: Distance ambulated (feet): 12 Assistive Device: Rolling walker Assist: Minimal Assistance regressing to moderate assistance Balance Sit (Static): (fair -) (09/15/24 150) Sit (Dynamic): (fair -) (09/15/24 150) Stand (Static): (poor +) (09/15/24 150) Stand (Dynamic): (poor + to poor) (09/15/24 [...] Alarm Status Patient positioned in: Bed (09/15/24 150) With: Bed alarm intact and functioning and call alfred in reach (09/15/24 150) Patient Education Review of Precautions: Safety;Fall (09/15/24 150) Review of Exercises: Verbal Exercises Provided;Pt Demonstrated Exercise (09/06/24 1035) Safety Awareness: Patient can communicate basic needs;Needs cueing supervision (09/15/24 150) Preferred learning method: Combination (09/15/24 150) Barriers [...] care services which may include home health, intermediate, outpatient therapy or inpatient rehabilitation.The level of care will be determined in collaboration with patient, family/caregiver and care team members. Deficits requiring P.T. treatment needs: Safety;Mobility;Balance;Weakness;Endurance;Lower extremitystrength (09/15/24 2464) Plan: Continue with current treatment plan established [...] EST CARE MANAGEMENT - ADULT TRANSITION NOTE [facility] [address] Name: Goran NUÑEZN: [id number] Location[place] [facility] Date: 09/15/2024 Time: 1:20 PM Risk [...] Work Mobile JOSE ANTONIO HESTER Adult Child [phone] Tonya Waddell Adult Child [phone] Other Contacts None on File Transition of Care Checklist Transition of Care Checklist (aka Readmission Risk Score) Discharge Disposition: (Goal is to return home to [facility] where he shares an apartment with his , Rossi.) (09/06/241433) Narrative: CM has been following Patient's hospital course. Patient discussed in IDT rounds. They are not medically stable for discharge at this time because patient in new onset A-fib with RVR. Discharge plan evolving - CM will continue to follow for discharge needs. Spoke with Rika @[facility], still offering bed on Sunday 09/17. Continue to follow. Per Rika at [facility] 1:1 for safety will not delay discharge [...] PM EST PROGRESS NOTE - Physical Therapy [facility] [address] Name: Goran Hester [place] [facility] [facility] Date: 09/14/2024 Time: 12:25 PM Attempted [...] EST Occupational Therapy Progress Note Goran Hester [facility] [id number] 09/14/2024 Attempted to see patient prior to lunch for Occupational therapy treatment session. Patient continues to be on medical hold per Dr. Valentino due to increased agitation and AFib RVR. Will continue to follow as able and medically appropriate. * Ancillary Progress Note - Katty Donovan COTA - 09/14/2024 9:23 AM EST Occupational Therapy Progress Note Goran Hester [facility] [id number] 09/14/2024 Attempted to see patient today for Occupational therapy treatment session,although Per IDT rounds patient is on medical hold due to being in Afib with RVR at this time. Will continue to follow as able and medically appropriate. Thank you. * Ancillary Progress Note - Belén Peralta PTA - 09/14/2024 9:06 AM EST PROGRESS NOTE - Physical Therapy [facility] [address] Name: Goran Hester [place] [facility] Date: 09/14/2024 Time: 9:06 AM Attempted to see patient for physical therapy services however after discussing with Dr. Valentino, charge nurse, and care management patient is currently on a medical hold this morning due to being in AFIB with RVR. Will continue to follow patient as able/appropriate. * Ancillary Progress Note - Mariya Jewell SHOVEL MECHANIC - 09/13/2024 1:25 PM EST PROGRESS NOTE - Speech-Language Pathology [facility] [address] Name: Goran Hester Location: [address] Date: 09/13/2024 Time: 1:25 PM Patient Status: [...] EST CARE MANAGEMENT - ADULT TRANSITION NOTE [facility] [address] Name: Goran Hester [place] [facility] Date: 09/13/2024 Time: 11:05 AM Risk [...] Work Mobile JOSE ANTONIO HESTER Adult Child [phone] Tonya Waddell Adult Child [phone] Other Contacts None on File Transition of Care Checklist Transition of Care Checklist (aka Readmission Risk Score) Discharge Disposition: ([facility] to [facility] where [facility] an apartment with his , Rossi.) (09/06/241433) Narrative: CM has been following Patient's hospital course. Patient discussed in IDT rounds. They are not medically stable for discharge at this time. Spoke with Rika at [facility], can offer pt a bed on Sunday [...] #: Pt's son Jose Antonio and IDT (09/06/24 1434) Insurance Considerations: N/A (09/06/24 1434) Post-Acute Care needs identified and Referrals Completed: (undtermined at this time.) (09/06/24 1434) Care Management will continue to monitor and [...] PM EST PROGRESS NOTE - Physical Therapy [address] [address] Name: Goran Hester [place] [facility] Date: 09/12/2024 Time: 3:43 PM Goran Hester is a/an 89 year old male. Patient Status: Inpatient Insurance: Payor: MEDICARE Plan: MEDICARE A AND B Product Type: *No Product type* Payor: [email or web address] [place] ([employer]) Plan: [employer] MEDICARE SUPPLEMENT Product Type: *No Product type* Patient Seen: at bedside, nursing cleared patient for therapy Patient Identified By: Name, ID Band and Date Diagnosis: ICH (09/12/241542) Status of treatment: Treatment completed (09/12/241542) Orders: PT evaluation and treatment (09/12/241542) Precautions: Alarms;Falls;Safety;Oxygen (6 L O2, KENAITZE with hearing aids) (09/12/241542) Total Treatment Time--free [...] care services which may include home health, intermediate, outpatient therapy or inpatient rehabilitation. The level [...] PM EST PROGRESS NOTE - Occupational Therapy [address] [address] Name: Goran Hester [place] [facility] Date: 09/12/2024 Time: 3:49 PM Goran Hester is a 89 year old male. Patient Status: Inpatient Insurance: Payor: MEDICARE Plan: MEDICARE A AND B Product Type: *No Product type* Payor: [email or web address] [facility] ([employer]) Plan: [employer] MEDICARE SUPPLEMENT Product Type: *No Product type* Patient Seen: at bedside, nursing cleared patient for therapy Patient Identified By: Name, ID Band and Date Diagnosis: ICH (09/12/241543) Status of treatment: Treatment completed (09/12/241543) Orders: OT evaluation and treatment (09/12/241543) Weight Bearing Status: Weight bearing as tolerated (09/12/241543) Precautions: Alarms;Falls;Safety (intermediate nasal cannula 8 L/min) (09/12/241543) Total Treatment Time: 20 (09/12/241543) Subjective: "yes" [...] carryover of insight during functional tasks. (09/08/241428) Current Functional Status: Activities of Daily Living: [...] plugged into callbell system. Treatment Provided: Self Long Term Management Trainin minutes Deficits requiring O.T. treatment [...] care services which may include home health, intermediate, outpatient therapy or inpatient rehabilitation. The level of care will be determined in collaboration with patient, family/caregiver and care team members. Plan: Will continue to follow patient per plan of care. Anticipated Frequency (on eval): 3 to 5 times per week (09/12/24 4142) AM-PAC assessment not scored at this time due to patient resistive to care. Please refer to future AM-PAC calculations of functional mobility as they become available. * Ancillary Progress Note - Zakia Plummer RN - 09/12/2024 2:39 PM EST CARE MANAGEMENT - ADULT TRANSITION NOTE [facility] [address] Name: Goran Hester [place] [facility] Date: 09/12/2024 Time: 2:39 PM Risk [...] Work Mobile JOSE ANTONIO HESTER Adult Child [phone] Tonya Waddell Adult Child [phone] Other Contacts None on File Transition of Care Checklist Transition of Care Checklist (aka Readmission Risk Score) Discharge Disposition: (Goal is to return home to [facility] where he shares an apartment with [...] needing rehab after d/c before returning to [facility]. Patient's daughter agreeable, requested referral to [facility] SNF referralsent. 1345: Spoke with patient's son Jose Antonio, emailed SNF list to him, agreeable to referrals being sent. Anticipated Transportation at Discharge: Family vs w/c? Patient/Family Expectations: SNF Transition Planning Transition Planning Transition Plan/Considerations: Needs uncertain at this time - Continue monitoring for needs;Discussed at Interdisciplinary Team / Boost Rounds (09/06/241433) [facility] Quality Rating provided to patient: No (09/06/241433) [...] 11:54 AM EST CLINICAL NUTRITION CONSULT/PROGRESS NOTE [facility] [address] Name: Goran Hester Location: [facility] Date: 09/12/2024 Time: 11:55 AM How patient was identified (select 2): Wristband and Name Discussed in interdisciplinary rounds: No Goran Hester is a 89 year old male being seen for follow-up Primary Diagnosis: Admitted with ICH Other pertinent information: Swallow evaluation 09/10/24, cleared for Regular textured diet. Patient currently NPO due to respiratory status. On HFNC this morning when seen. NUTRITION ASSESSMENT: Past [...] (09/12/24 0230) Usual Body Weight: 95-96 kg [place] weight: 76.5 kg [place] Weight Based on BMI: 24.9 Adjusted ideal weight: 81.1 kg Interpretation of Weight Change Prior to Admission: No recent/significant weight change Weight Changes Since Admission: weight up from admission, trending. Nutrition Prescription: Energy needs: 20-25 Kcal/kg Based on admission weight Kcal/day: 4901-8442 Protein needs: 1.0-1.2 gm/kg Based on admission [...] patient condition requiring earlier intervention. Kenyon CAMP [facility] Clinical Nutrition Services [place] Text / x [phone] * Respiratory Progress Note - Jose Antonio Khalil, JACKELYN - 09/12/2024 2:54 AM EST PDP RE-EVALUATION NOTE - Respiratory Care Services [facility] [address] Name: Goran Hester [place] [facility] Date: 09/12/2024 Time: 2:54 AM Patient [...] male with PMHx of HTN, T2DM, DLD, MO s/p 5 stents, stroke, who was admitted for [facility] 2/2 hemorrhagic conversion of embolic strokesHospital course complicatedby [...] of care: disorientation, poor short term memory, KENAITZE Stability of the patient: Moderately stable - low risk of patient condition declining or worsening Summary regarding today's goal(s): Met: pt remained safe this shift Recommendations: reinforce call alfred use when necessary * Ancillary Progress Note - Delores Marin CCC-SHOVEL MECHANIC - 09/10/2024 2:51 PM EST PROGRESS NOTE - Speech-Language Pathology [address] [address] Name: Goran Hester [place] [facility] Date: 09/10/2024 Time: 2:51 PM Patient Status: Inpatient Insurance: Payor: MEDICARE / Plan: MEDICARE A AND B / Product Type: *No Product type* / Patient Age: [age] year old Pt seen today for f/u swallowing treatment. Pt last seen by on 09/10/24 in the morning w/ recommendations [...] PATIENT DRIVEN PROTOCOL - Respiratory Care Services [address] [address] Name: Goran Hester [place] [facility] Date: 09/09/2024 Time: 4:15 PM Patient [...] Signs: Resp: 23 (09/09/24 1600) Pulse: 55 (09/09/24 1600) Temp: (P) 36.3 C (97.3 F) (09/09/24 1600) BP: 152/58 (09/09/24 1600) SpO2: 98 % (09/09/24 1600) Primary Service: Critical Care White. Admitting Diagnosis: Intracranial hemorrhage (HCC) [I62.9] Pulmonary Diagnosis: none . Prescriptions/Home Medications/Durable Medical Equipment: none. Recommended New home medications/durable medical equipment/outpatient pulmonary/sleep referral. N/A * Ancillary Progress Note - Mago Flood RN - 09/09/2024 3:45 PM EST CARE MANAGEMENT - ADULT TRANSITION NOTE [address] [address] Name: Goran Hester [place] [facility] Date: 09/09/2024 Time: 3:45 PM Risk [...] Work Mobile JOSE ANTONIO HESTER Adult Child [phone] Tonya Waddell Adult Child [phone] Other Contacts None on File Transition of Care Checklist Transition of Care Checklist (aka Readmission Risk Score) Discharge Disposition: ([facility] an apartment with his , Rossi.) (09/06/241433) Narrative: Pt status was discussed during IDT [...] discharge at this time. Son will update [facility] as he wants to maintain privacy at this time. Anticipated Transportation at Discharge: Medical Patient/Family Expectations: Pending PT/OT evaluations and deficits/needs at discharge. Goal is to return to [facility] with but pt may need SNF/IPR prior to returning pending those needs. CM will continue to follow and assist with discharge planning. Transition Planning Transition Planning Transition Plan/Considerations: Needs uncertain at this time - Continue monitoring for needs;Discussed at Interdisciplinary Team / Boost Rounds (09/06/241433) [facility] Quality Rating provided to patient: No (09/06/241433) [...] 8:00 AM EST CLINICAL NUTRITION PROGRESS NOTE [facility] [address] Name: Goran Hester Location: [facility] Date: 09/09/2024 Time: 1:53 PM How [...] (09/09/24 0600) Usual Body Weight: 95-96 kg [place] weight: 76.5 kg [place] Weight Based on BMI: 24.9 Adjusted ideal weight: 81.1 kg Interpretation of Weight Change Prior to Admission: No recent/significant weight change Weight Changes Since Admission: No significant loss. Nutrition Prescription: Energy needs: 20-25 Kcal/kg Kcal/day: 2858-7086 Based on admission weight Protein needs: 1.0-1.2 [...] condition requiring earlier intervention. Leela Amezcua RDN, [place]RAD[place] Registered Dietitian Disease Management Nurse [facility] [phone] Available via monEchelle * Diagnostic Clarification - Shala Mosley DO - 09/09/2024 7:37 AM EST The patient has a diagnosis of hypertension due to agitation. * Pt Handout (on AVS) - Reggie Edmondson RN - 09/09/2024 6:37 AM EST Images from the original note were not included. [id number] Stroke: Resources and Support Your loved one may need ongoing therapy or nursing care after a stroke. Talk with a high school social studies teacher or window caser. Thy can help with planning for [...] Churches and synagogues Recreation centers Adult daycare career services assistant Support groups Online stroke support communities Last Reviewed Date: 2022 00:00:00 7139-5423 [employer]. All rights reserved. This information is not intended as a substitute for professional medical care. Always follow your healthcare professional's instructions. * Pt Handout (on AVS) - Reggie Edmondson RN - 09/09/2024 6:36 AM EST [id number] Risk Factors for Stroke Certain health and [...] overall health. Last Reviewed Date: 2023 00:00:00 0669-6550 [employer]. All rights reserved. This information is not intended as a substitute for professional medical care. Always follow your healthcare professional's instructions. * Ancillary Progress Note - Chandler Gillis STAFFING OPERATIONS MANAGER - 09/08/2024 3:41 PM EST PATIENT DRIVEN PROTOCOL - Respiratory Care Services [address] [address] Name: Goran Hester [place]: [facility] Date: 09/08/2024 Time: 3:41 PM Patient [...] PM EST PROGRESS NOTE - Occupational Therapy [facility] [address] Name: Goran Hester Location: [facility] Date: 09/08/2024 Time: 1449 pm Goran Hester is a 89 year old male. Patient Status: Inpatient Insurance: Payor: MEDICARE Plan: MEDICARE A AND B Product Type: *No Product type* Payor: [facility] ([employer]) Plan: SECURITY 65 MEDICARE SUPPLEMENT Product Type: [...] care services which may include home health, intermediate, outpatient therapy or inpatient rehabilitation. The level of carewill be determined in collaboration with patient, family/caregiver and care team members. Plan: Will continue to follow patient per plan of care. Anticipated Frequency (on eval): 3 to 5 times per week (09/08/241428) AM-PAC assessment not scored at this time due to respiratory status. Please refer to future AM-PAC calculations of functional mobility as they become available. * Ancillary Progress Note - Belén Peralta PTA - 09/08/2024 2:40 PM EST PROGRESS NOTE - Physical Therapy [address] [address] Name: Goran Hester Location: [facility] Date: 09/08/2024 Time: 2:40 PM Goran Hester is a/an 89 year old male. Patient Status: Inpatient Insurance: Payor: MEDICARE Plan: MEDICARE A AND B Product Type: *No Product type* Payor: [facility] ([employer]) Plan: [employer] MEDICARE SUPPLEMENT Product Type: *No Product type* [...] and functioning and call alfred in reach (02/13/25 1440) Patient Education Review of Precautions: Safety;Fall (09/08/24 1440) Review of Exercises: Verbal Exercises Provided;Pt Demonstrated Exercise (09/06/24 1035) Safety Awareness: Patient does not verbalize insight of current deficits;Patient does not demonstrates carryover of insight during functional tasks;Patient can communicate basic needs;Needs cueing supervision (09/08/24 144) Preferred learning method: Combination (09/08/24 144) Barriers to learning: Medical Status;Cognition;Hearing (09/08/241439) Method of Education: Verbalized to patient;Patient demonstrated task (09/08/24 144) Assessment: Patient was seen reclined in the [...] SPO2 ranged between 100-98% and primary nurse RN Brit was present throughout the session to monitor. Patient would continue to benefit from skilled physical therapy services to reach established goals and address deficits stated above. Please consider post-acute careservices which may include home health, intermediate, outpatient therapy or inpatient rehabilitation. The level of care will be determined in collaboration with patient, family/caregiver and care team members. Deficits requiring P.T. treatment needs: Safety;Mobility;Balance;Weakness;Endurance;Lower extremitystrength (09/08/24 144) Plan: Continue with current treatment plan established [...] EST Occupational Therapy Progress Note Goran Hester [facility] [id number] 09/08/2024 Attempted to see patient today for Occupational therapy treatment session. Per primary nurse patient is currently on medical hold secondary to respiratory status: Patient now requiring Bipap. Will continue to follow as able. * Ancillary Progress Note - Belén Peralta PTA - 09/08/2024 12:31 PM EST PROGRESS NOTE - Physical Therapy [facility] [place] [address] Name: Goran Hester [place] [facility] [facility] Date: 09/08/2024 Time: 12:31 PM Attempted to see patient for physical therapy services however after discussing with the primary nurse, ALBNAIA Perea, patient is currently on a medical hold due to decline in respiratory status and recently being placed on bipap. Will continue to follow patient as able/appropriate. * Ancillary Progress Note - Kimmy Reid MSW - 09/08/2024 10:33 AM EST CARE MANAGEMENT - ADULT TRANSITION NOTE [facility] [address] Name: Goran Hester [place] [facility] [facility] Date: 09/08/2024 Time: 10:33 AM Risk Stratification Risk Stratification Psycho Social / Medical Concerns Identified: Adjustment to illness/injury;New serious diagnosis (09/06/241421) Accessed [employer] to connect patients to social care resources: No (09/06/241421) OBRA or OPTIONS needed for placement: No (09/06/241421) Readmission Risk Score: 18.04 (09/08/24 0800) AM-PAC Score With Stairs : 6 (09/06/24 1035) Caregiver Information Emergency Contacts Name Relation Home Work Mobile JOSE ANTONIO HESTER Adult Child [phone] Tonya Waddell Adult Child [phone] Other Contacts None on File Transition of Care Checklist Transition of Care Checklist (aka Readmission Risk Score) Discharge Disposition: (Goal is to return home to [facility] where he shares an apartment with his , Rossi.) (09/06/241433) Narrative: SW participated in IDTs. Per service, anticipate transfer out of ICU overnight, however,now on precedex infusion. Per chart review, pt admitted from [facility]. PT/OT notes reviewed from 09/06; call placed to patient's son, Jose Antonio to discuss. Jose Antonio expresses that WELDING MACHINE OPERATOR ARC patient lived in personal care portion of [facility]: apartment with and staff only assisted with [...] explained that we can open referral to [facility] so they are able to review and [...] that he will reach out himself to [facility] today to explain pt's status and potential for needing additional support upon discharge. SW will continue to follow, address pt's evolving needs, and provide psychosocial support. Anticipated Transportation at Discharge: TBD Patient/Family Expectations: TBD Transition Planning Transition Planning Transition Plan/Considerations: Needs uncertain at this time - Continue monitoring for needs;Discussed at Interdisciplinary Team / Boost Rounds (09/06/241433) [facility] Quality Rating provided to patient: No (09/06/241433) [...] rounding. * Ancillary Progress Note - Mariya Jewell, ALTON - 09/07/2024 9:29 AM EST PROGRESS NOTE - Speech-Language Pathology [facility] [address] Name: Goran Hester [place] [facility] [facility] Date: 09/07/2024 Time: 9:29 AM Patient [...] given min cues GOAL MET: 5/5 independently SHOVEL MECHANIC administered cognitive communication ax due to improved [...] Impaired Novel Information Impaired Delayed memory Impaired Manager Test Memory Within normal limits PROBLEM SOLVING/REASONING: Verbal [...] bites Required cues to slow down and SHOVEL MECHANIC monitored rate by giving him 1 spoonful [...] EST CARE MANAGEMENT - ADULT TRANSITION NOTE [facility] [address] Name: Goran Hester [place] [facility] [facility] Date: 09/07/2024 Time: 8:58 AM Risk Stratification Risk Stratification Psycho Social / Medical Concerns Identified: Adjustment to illness/injury;New serious diagnosis (09/06/24 0927) Accessed [facility] to connect patients to social care resources: No (09/06/241421) OBRA or OPTIONS needed for placement: No (09/06/241421) Readmission Risk Score: 10.21 (09/07/24 0800) AM-PAC Score With Stairs : 6 (09/06/24 1035) Caregiver Information Emergency Contacts Name Relation Home Work Mobile Jose Antonio Adult Child [phone] Other Contacts Name Relation Home Work Mobile Tonya Waddell Adult Child [phone] Transition of Care Checklist Transition of Care Checklist (aka Readmission Risk Score) Discharge Disposition: (Goal is to return home to [facility] where he shares an apartment with [...] at Interdisciplinary Team / Boost Rounds (09/06/241433) [facility] Quality Rating provided to patient: No (09/06/241433) [...] EST CARE MANAGEMENT - ADULT INITIAL SCREENING [facility] [address] Name: Goran Hester [place] [facility] [facility] Date: 09/06/2024 Time: 2:36 PM Discussed patient with the interdisciplinary care team. This Garment Mender performed a chart review and spoke with pt's son, Jose Antonio via phone to complete admission screen and assessed needs for transition planning. The customer care team coach role and services were explained and emotional [...] Home Work Mobile Jose Antonio Adult Child [phone] Other Contacts Name Relation Home Work Mobile Tonya Waddell Adult Child [phone] Risk Stratification/Psychosocial/Care Gaps Risk Stratification Psycho Social / Medical Concerns Identified: Adjustment to illness/injury;New serious diagnosis (09/06/241421) Accessed [facility] to connect patients to social care resources: No (09/06/241421) OBRA or OPTIONS needed for placement: No (09/06/241421) Readmission Risk Score: 11.43 (09/06/24 1201) AM-PAC Score With Stairs : 6 (09/06/24 1035) Prior to Admission Services Services Prior to Admission WELDING MACHINE OPERATOR [employer] Services (Services received within the last 30 days with exception, Psych within last two years): Assisted Living;Durable Medical Equipment (09/06/241421) WELDING MACHINE OPERATOR [employer] Durable Medical Equipment (DME) in home: Walker Rolling;Glucometer (09/06/241421) DME Name: [facility] (09/06/241421) [place] Dept[employer] Aging (PDA) Waiver Program: N/A (09/06/241421) WELDING MACHINE OPERATOR [employer] Transportation (Services received within the last 30 days): Facility Transportation;Family/Friends Personal Vehicle;Medical Transportation (09/06/241421) Outpatient Garment Mender: No care produce service team member to display Patient/Family Expectations: Pt's full name is Goran Hester Jr. and likes to be called "Walter". Pt resides with his , Rossi at [place] [id number] [place] [address] and Rochelle Lopez, Head Nurse is the [...] since that time. Pt was transferred from [facility] on 09/05 due to left temporal [...] document. * Ancillary Progress Note - Soledad Bray, PT - 09/06/2024 9:59 AM EST Goran Hester [facility] [id number] Attempted to see patient for PT evaluation on this date. Patient currently unavailable, as they areoff floor at this time. PT will continue to follow patient as able/appropriate. Thank you. * Ancillary Progress Note - Mariya Jewell, ALTON - 09/06/2024 8:48 AM EST LOW LEVEL COGNITIVE COMMUNICATION ASSESSMENT- Speech-Language Pathology [facility] [address] Name: Goran Hester [place] [facility] [facility] Date: 09/06/2024 Time: 8:49 AM Patient Status: Inpatient Insurance: Payor: MEDICARE / Plan: MEDICARE A AND B / Product Type: *No Product type* / Patient Age: [age] year old Referring Physician: Power Barba MD Admission Date: 09/05/2024 History: Per medical chart review, "Goran Hester is a 89 year old, right- handed male with an unknown past medical history; presents to [facility] via transfer from an outside hospitalafter presenting with an altered mental status. Medical imaging completed at the outside hospital showed a left temporal intraparenchymal hemorrhage. The patient was transferred to [facility] for definitive care. 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 15250 What Is Ischemic Stroke? The brain needs [...] what you need to call 911 fast. B.E. [...] first appeared. Last Reviewed Date: 2023 00:00:00 [id number] [employer]. All rights reserved. This information is not intended as a substitute for professional medical care. Always follow your healthcare professional's instructions. * Pt Handout (on AVS) - ISRRAEL PATIENT HANDOUT - 09/06/2024 8:19 AM EST Images from the original note were not included. 68932 What Is Hemorrhagic Stroke? The brain needs [...] brain cells. Last Reviewed Date: 2023 00:00:00 [id number] [employer]. All rights reserved. This information is not intended as a substitute for professional medical care. Always follow your healthcare professional's instructions. * Pt Handout (on AVS) - KRAMES, PATIENT HANDOUT - 09/06/2024 8:19 AM EST Images from the original note were not included. 57176 Symptoms of a Stroke During a stroke, [...] first appeared. Last Reviewed Date: 2024 00:00:00 [id number] [employer]. All rights reserved. This information is not intended as a substitute for professional medical care. Always follow your healthcare professional's instructions. * Pt Handout (on AVS) - ISRRAEL PATIENT HANDOUT - 09/06/2024 8:19 AM EST [id number] Discharge Instructions for Stroke You have a [...] first appeared. Last Reviewed Date: 2021 00:00:00 5910-3439 [employer]. All rights reserved. This information is not [...] Care Team (Late st Contact Info) Description 11/29/2024 3:00 PM EDT Office Visit Neurosurgery, [place] [address] [place] [address] Haider Quinn MD [address], [place] [id number] 01/04/2025 11:20 AM EDT Telemedicine Neurology Andrés Dickerson, [place] [address] [place] [address] Sagar Ohara MD [address] [place] [address] Cart, [facility] [address] [place] [address] Scheduled Orders Name Type Priority Associated Diagnoses Orde r Schedule SALINE LUCY Procedures Routine Ongoing until discontinued starting 09/05/2024 EKG EKG Routine Chest pain One Time for 1 Occurrences starting 09/05/2024 until 09/05/2024 MAGNESIUM Lab STAT Morning Draw u ntil discontinued starting 09/07/2024, 14 completed PHOSPHORUS Lab STAT Morning Draw u ntil discontinued starting 09/07/2024, 14 completed MRI BRAIN W WO CONTRAST Medical Imaging Routine Intraparenchymal hemorrhage of brain (HCC) Expected: 12/05/2024, Expires: 10/05/2025 GLUCOSE METER, POINT OF CARE (COMMUNICATION ORDER) Point of Care Testing Routine As Needed until discontinued starting 09/08/2024 BLOOD GAS, ARTERIAL Lab STAT One Time for 1 Occurrences starting 09/08/2024 until 09/08/2024 XR CHEST 1 VIEW Medical Imaging STAT One Time for 1 Occurrences starting 09/09/2024 until 09/09/2024 GLUCOSE METER, POINT OF CARE (COMMUNICATION ORDER) Point of Care Testing Routine Before Meals & At Bedtime until discontinued starting 09/11/2024, 40 completed BASIC METABOLIC PANEL Lab Routine Stage 3 [...] on filedocumented as of this encounter Procedures * The patient is currently admitted. The information in this section might not be complete until the patient is discharged. Procedure Name Priority Date/Time Associated Diagnosis Comments GLUCOSE METER, POINT OF CARE [facility] 09/20/2024 5:12 PM EST GLUCOSE METER, POINT OF CARE [facility] 09/20/2024 12:00 PM EST GLUCOSE METER, POINT OF CARE [facility] 09/20/2024 8:05 AM EST BASIC METABOLIC PANEL Add-on 09/20/2024 6:49 AM EST PHOSPHORUS STAT 09/20/2024 6:49 AM EST MAGNESIUM STAT 09/20/2024 6:49 AM EST GLUCOSE METER, POINT OF CARE [facility] 09/19/2024 9:12 PM EST GLUCOSE METER, POINT OF CARE [facility] 09/19/2024 4:36 PM EST GLUCOSE METER, POINT OF CARE [facility] 09/19/2024 11:33 AM EST GLUCOSE METER, POINT OF CARE [facility] 09/19/2024 7:41 AM EST BASIC METABOLIC PANEL Routine 09/19/2024 6:26 AM EST PHOSPHORUS STAT 09/19/2024 6:26 AM EST MAGNESIUM STAT 09/19/2024 6:26 AM EST GLUCOSE METER, POINT OF CARE [facility] 09/18/2024 9:35 PM EST GLUCOSE METER, POINT OF CARE [facility] 09/18/2024 5:17 PM EST GLUCOSE METER, POINT OF CARE [facility] 09/18/2024 11:43 AM EST GLUCOSE METER, POINT OF CARE [facility] 09/18/2024 7:50 AM EST BASIC METABOLIC PANEL Routine 09/18/2024 7:17 AM EST PHOSPHORUS STAT 09/18/2024 7:17 AM EST CBC Routine 09/18/2024 7:17 AM EST MAGNESIUM STAT 09/18/2024 7:17 AM EST GLUCOSE METER, POINT OF CARE [facility] 09/17/2024 8:41 PM EST GLUCOSE METER, POINT OF CARE [facility] 09/17/2024 5:01 PM EST GLUCOSE METER, POINT OF CARE [facility] 09/17/2024 11:31 AM EST GLUCOSE METER, POINT OF CARE [facility] 09/17/2024 7:51 AM EST BASIC METABOLIC PANEL Routine 09/17/2024 7:18 AM EST PHOSPHORUS STAT 09/17/2024 7:18 AM EST MAGNESIUM STAT 09/17/2024 7:18 AM EST DIGOXIN LEVEL Routine 09/17/2024 7:18 AM EST GLUCOSE METER, POINT OF CARE [facility] 09/16/2024 10:27 PM EST GLUCOSE METER, POINT OF CARE [facility] 09/16/2024 9:07 PM EST GLUCOSE METER, POINT OF CARE [facility] 09/16/2024 4:42 PM EST BASIC METABOLIC PANEL Routine 09/16/2024 8:01 AM EST PHOSPHORUS STAT 09/16/2024 8:01 AM EST MAGNESIUM STAT 09/16/2024 8:01 AM EST GLUCOSE METER, POINT OF CARE [facility] 09/16/2024 7:41 AM EST GLUCOSE METER, POINT OF CARE [facility] 09/15/2024 9:25 PM EST GLUCOSE METER, POINT OF CARE [facility] 09/15/2024 4:51 PM EST GLUCOSE METER, POINT OF CARE [facility] 09/15/2024 11:25 AM EST POTASSIUM, WHOLE BLOOD Routine 09/15/2024 10:33 AM EST GLUCOSE METER, POINT OF CARE [facility] 09/15/2024 7:32 AM EST XR CHEST 1 VIEW Routine 09/15/2024 7:19 AM EST Abnormal findings on diagnostic imaging of other specified body structures Other nonspecific abnormal finding of lung field BASIC METABOLIC PANEL Routine 09/15/2024 6:45 AM EST PHOSPHORUS STAT 09/15/2024 6:45 AM EST MAGNESIUM STAT 09/15/2024 6:45 AM EST GLUCOSE METER, POINT OF CARE [facility] 09/14/2024 8:53 PM EST GLUCOSE METER, POINT OF CARE [facility] 09/14/2024 6:03 PM EST BASIC METABOLIC PANEL Routine 09/14/2024 5:43 PM EST MAGNESIUM Add-on 09/14/2024 5:43 PM EST GLUCOSE METER, POINT OF CARE [facility] 09/14/2024 11:38 AM EST CBC Routine 09/14/2024 8:08 AM EST GLUCOSE METER, POINT OF CARE [facility] 09/14/2024 7:29 AM EST BASIC METABOLIC PANEL Routine 09/14/2024 6:44 AM EST PHOSPHORUS STAT 09/14/2024 6:44 AM EST MAGNESIUM STAT 09/14/2024 6:44 AM EST GLUCOSE METER, POINT OF CARE [facility] 09/13/2024 9:05 PM EST GLUCOSE METER, POINT OF CARE [facility] 09/13/2024 4:28 PM EST GLUCOSE METER, POINT OF CARE [facility] 09/13/2024 11:48 AM EST GLUCOSE METER, POINT OF CARE [facility] 09/13/2024 7:43 AM EST BASIC METABOLIC PANEL Routine 09/13/2024 5:58 AM EST PHOSPHORUS STAT 09/13/2024 5:58 AM EST MAGNESIUM STAT 09/13/2024 5:58 AM EST GLUCOSE METER, POINT OF CARE [facility] 09/12/2024 8:48 PM EST GLUCOSE METER, POINT OF CARE [facility] 09/12/2024 4:33 PM EST IRON SCREEN, INCLUDING TIBC Add-on 09/12/2024 4:24 PM EST GLUCOSE METER, POINT OF CARE [facility] 09/12/2024 12:51 PM EST GLUCOSE METER, POINT OF CARE [facility] 09/12/2024 10:[address] HEAD/BRAIN WO CONTRAST Routine 09/12/2024 10:07 AM EST GLUCOSE METER, POINT OF CARE [facility] 09/12/2024 8:08 AM EST BASIC METABOLIC PANEL Routine 09/12/2024 7:21 AM EST FOLIC ACID Add-on 09/12/2024 7:21 AM EST PHOSPHORUS STAT 09/12/2024 7:21 AM EST CBC Routine 09/12/2024 7:21 AM EST MAGNESIUM STAT 09/12/2024 7:21 AM EST FERRITIN Add-on 09/12/2024 7:21 AM EST VITAMIN B12 Add-on 09/12/2024 7:21 AM EST GLUCOSE METER, POINT OF CARE [facility] 09/11/2024 11:36 PM EST XR CHEST 1 VIEW STAT 09/11/2024 11:12 PM EST Shortness of breath Dependence on supplemental oxygen BLOOD GAS, ARTERIAL STAT 09/11/2024 1 0:41 PM EST GLUCOSE METER, POINT OF CARE [facility] 09/11/2024 8:57 PM EST GLUCOSE METER, POINT OF CARE [facility] 09/11/2024 4:59 PM EST GLUCOSE METER, POINT OF CARE [facility] 09/11/2024 11:30 AM EST CBC Routine 09/11/2024 8:04 AM EST BASIC METABOLIC PANEL Routine 09/11/2024 6:44 AM EST PHOSPHORUS STAT 09/11/2024 6:44 AM EST MAGNESIUM STAT 09/11/2024 6:44 AM EST GLUCOSE METER, POINT OF CARE [facility] 09/11/2024 5:26 AM EST GLUCOSE METER, POINT OF CARE [facility] 09/11/2024 12:18 AM EST GLUCOSE METER, POINT OF CARE [facility] 09/10/2024 6:05 PM EST GLUCOSE METER, POINT OF CARE [facility] 09/10/2024 11:58 AM EST GLUCOSE METER, POINT OF CARE [facility] 09/10/2024 6:07 AM EST BASIC METABOLIC PANEL Routine 09/10/2024 6:03 AM EST PHOSPHORUS STAT 09/10/2024 6:03 AM EST CBC Routine 09/10/2024 6:03 AM EST MAGNESIUM STAT 09/10/2024 6:03 AM EST XR CHEST 1 VIEW STAT 09/10/2024 3:42 AM EST Shortness of breath GLUCOSE METER, POINT OF CARE [facility] 09/10/2024 12:08 AM EST GLUCOSE METER, POINT OF CARE [facility] 09/09/2024 4:43 PM EST GLUCOSE METER, POINT OF CARE [facility] 09/09/2024 11:59 AM EST BASIC METABOLIC PANEL Routine 09/09/2024 7:49 AM EST PHOSPHORUS STAT 09/09/2024 7:49 AM EST CBC Routine 09/09/2024 7:49 AM EST MAGNESIUM STAT 09/09/2024 7:49 AM EST GLUCOSE METER, POINT OF CARE [facility] 09/09/2024 5:15 AM EST GLUCOSE METER, POINT OF CARE [facility] 09/08/2024 9:43 PM EST HC ECG TRACING ONLY STAT 09/08/2024 9 :13 PM EST Chest pain CT ECG ROUTINE ECG W/LEAST 12 LDS I&R ONLY STAT 09/08/2024 5:14 PM EST Chest pain GLUCOSE METER, POINT OF CARE [facility] 09/08/2024 4:16 PM EST GLUCOSE METER, POINT OF CARE [facility] 09/08/2024 1:13 PM EST XR CHEST 1 VIEW STAT 09/08/2024 12:04 PM EST Chronic pulmonary edema BASIC METABOLIC PANEL Routine 09/08/2024 6:05 AM EST PHOSPHORUS STAT 09/08/2024 6:05 AM EST CBC Routine 09/08/2024 6:05 AM EST MAGNESIUM STAT 09/08/2024 6:[address] ECG ROUTINE ECG W/LEAST 12 LDS I&R [...] POINT OF CARE (09/20/2024 5:12 PM EST) Glucose - POCT 164(H) 70 - 120 mg/dL 09/20/2024 5:15 PM EST [facility] Blood Whole blood specimen / Unknown 09/20/2024 5:12 PM EST 09/20/2024 5:15 PM EST us Catalino Valentino MD LAB POINT OF CARE TE ST DOCKED DEVICE UNSOLICITED RESULTS Final Result [facility] [address] [place] [address] * (ABNORMAL) GLUCOSE METER, POINT OF CARE (09/20/2024 12:00 PM EST) Glucose - POCT 155(H) 70 - 120 mg/dL 09/20/2024 12:12 PM EST [facility] Blood Whole blood specimen / Unknown 09/20/2024 12:00 PM EST 09/20/2024 12:12 PM EST us Catalino Valentino MD LAB POINT OF CARE TE ST DOCKED DEVICE UNSOLICITED RESULTS Final Result [facility] [address] [place] [address] * (ABNORMAL) GLUCOSE METER, POINT OF CARE (09/20/2024 8:05 AM EST) [facility] Glucose - POCT 149(H) 70 - 120 mg/dL 09/20/2024 8:58 AM EST [facility] Blood Whole blood specimen / Unknown 09/20/2024 8:05 AM EST 09/20/2024 8:58 AM EST Catalino Valentino MD LAB POINT OF CARE TE ST DOCKED DEVICE UNSOLICITED RESULTS Final Result Performing Organization Address [facility]/ZIP Co de Phone Number [facility] [address] [place] [address] * (ABNORMAL) BASIC METABOLIC PANEL (09/20/2024 6:49 AM EST) [facility] BUN 8 6 - 20 mg/dL 09/20/2024 [...] 10.2 mg/dL 09/20/2024 8:07 AM EST [facility] Blood Venous blood specimen / Unknown Venipuncture / Unknown 09/20/2024 6:49 AM EST 09/20/2024 7:00 AM EST Catalino Valentino MD LAB BLOOD ORDERABLES Final Resul t Performing Organization Address City/[facility] Co de Phone Number LABORATORY [facility] [address] [place] [address] * PHOSPHORUS (09/20/2024 6:49 AM EST) Phosphorus 3.1 2.5 - 4.8 mg/dL 09/20/2024 7:26 AM EST [facility] Blood Venous blood specimen / Unknown Venipuncture / Unknown 09/20/2024 6:49 AM EST 09/20/2024 7:00 AM EST Alfreda DAHL LAB BLOOD ORDERABLE S Final Result Performing Organization Address [facility] Co de Phone Number LABORATORY [facility] [address] [place] [address] * MAGNESIUM (09/20/2024 6:49 AM EST) Magnesium 2.1 1.5 - 2.6 mg/dL 09/20/2024 7:26 AM EST [facility] Blood Venous blood specimen / Unknown Venipuncture / Unknown 09/20/2024 6:49 AM EST 09/20/2024 7:00 AM EST Alfreda DAHL LAB BLOOD ORDERABLE S Final Result Performing Organization Address City/[facility] Co de Phone Number LABORATORY [facility] [address] [place] [address] * (ABNORMAL) GLUCOSE METER, POINT OF CARE (09/19/2024 9:12 PM EST) Glucose - POCT 133(H) 70 - 120 mg/dL 09/19/2024 9:19 PM EST [facility] Blood Whole blood specimen / Unknown 09/19/2024 9:12 PM EST 09/19/2024 9:19 PM EST us Catalino Valentino MD LAB POINT OF CARE TE ST DOCKED DEVICE UNSOLICITED RESULTS Final Result Performing Organization Address City/[facility]/ZIP Co de Phone Number [facility] [address] [place] [address] * (ABNORMAL) GLUCOSE METER, POINT OF CARE (09/19/2024 4:36 PM EST) Glucose - POCT 197(H) 70 - 120 mg/dL 09/19/2024 4:40 PM EST [employer] Blood Whole blood specimen / Unknown 09/19/2024 4:36 PM EST 09/19/2024 4:40 PM EST us Catalino Valentino MD LAB POINT OF CARE TE ST DOCKED DEVICE UNSOLICITED RESULTS Final Result Performing Organization Address [facility]/ZIP Co de Phone Number [facility] [address] [place] [address] * (ABNORMAL) GLUCOSE METER, POINT OF CARE (09/19/2024 11:33 AM EST) Glucose - POCT 171(H) 70 - 120 mg/dL 09/19/2024 11:43 AM EST [employer] BUSINESS [employer] Blood Whole blood specimen / Unknown 09/19/2024 11:33 AM EST 09/19/2024 11:43 AM EST us Catalino Valentino MD LAB POINT OF CARE TE ST DOCKED DEVICE UNSOLICITED RESULTS Final Result Performing Organization Address City/[facility]/ZIP Co de Phone Number [facility] [address] [place] [address] * (ABNORMAL) GLUCOSE METER, POINT OF CARE (09/19/2024 7:41 AM EST) Glucose - POCT 139(H) 70 - 120 mg/dL 09/19/2024 7:46 AM EST [facility] Blood Whole blood specimen / Unknown 09/19/2024 7:41 AM EST 09/19/2024 7:46 AM EST Catalino Valentino MD LAB POINT OF CARE TE ST DOCKED DEVICE UNSOLICITED RESULTS Final Result [facility] [address] [place] [address] * (ABNORMAL) BASIC METABOLIC PANEL (09/19/2024 6:26 [...] 10.2 mg/dL 09/19/2024 7:04 AM EST [facility] Blood Venous blood specimen / Unknown Venipuncture / Unknown 09/19/2024 6:26 AM EST 09/19/2024 6:32 AM EST us Michelle Kaur MD LAB BLOOD ORDERABLES Final Resul t [facility] [address] [place] [address] * PHOSPHORUS (09/19/2024 6:26 AM EST) Pathologist [facility] Phosphorus 3.9 2.5 - 4.8 mg/dL 09/19/2024 7:04 AM EST [facility]ATORY [facility] Blood Venous blood specimen / Unknown Venipuncture / Unknown 09/19/2024 6:26 AM EST 09/19/2024 6:32 AM EST Alfreda Lyonbarber DAHL LAB BLOOD ORDERABLE S Final Result [facility] [address] [place] [address] * MAGNESIUM (09/19/2024 6:26 AM EST) Pathologist [facility] Magnesium 1.8 1.5 - 2.6 mg/dL 09/19/2024 7:04 AM EST [facility] Blood Venous blood specimen / Unknown Venipuncture / Unknown 09/19/2024 6:26 AM EST 09/19/2024 6:32 AM EST Alfreda Darling Ariane DAHL LAB BLOOD ORDERABLE S Final Result [facility] [address] [place] [address] * (ABNORMAL) GLUCOSE METER, POINT OF CARE (09/18/2024 9:35 PM EST) [facility] Glucose - POCT 193(H) 70 - 120 mg/dL 09/18/2024 9:41 PM EST [facility] ITM [employer] [facility] Blood Whole blood specimen / Unknown 09/18/2024 9:35 PM EST 09/18/2024 9:41 PM EST Catalino Valentino MD LAB POINT OF CARE TE ST DOCKED DEVICE UNSOLICITED RESULTS Final Result [facility] [address] [place] [address] * (ABNORMAL) GLUCOSE METER, POINT OF CARE (09/18/2024 5:17 PM EST) Glucose - POCT 173(H) 70 - 120 mg/dL 09/18/2024 5:33 PM EST [facility] Blood Whole blood specimen / Unknown 09/18/2024 5:17 PM EST 09/18/2024 5:33 PM EST us Catalino Valentino MD LAB POINT OF CARE TE ST DOCKED DEVICE UNSOLICITED RESULTS Final Result [facility] [address] [place] [address] * (ABNORMAL) GLUCOSE METER, POINT OF CARE (09/18/2024 11:43 AM EST) Glucose - POCT 200(H) 70 - 120 mg/dL 09/18/2024 11:55 AM EST [employer] [facility] [employer] Blood Whole blood specimen / Unknown 09/18/2024 11:43 AM EST 09/18/2024 11:55 AM EST us Catalino Valentino MD LAB POINT OF CARE TE ST DOCKED DEVICE UNSOLICITED RESULTS Final Result [facility] [address] [place] [address] * (ABNORMAL) GLUCOSE METER, POINT OF CARE (09/18/2024 7:50 AM EST) Glucose - POCT 145(H) 70 - 120 mg/dL 09/18/2024 7:57 AM EST [employer] [facility] [employer] Blood Whole blood specimen / Unknown 09/18/2024 7:50 AM EST 09/18/2024 7:57 AM EST us Catalino Valentino MD LAB POINT OF CARE TE ST DOCKED DEVICE UNSOLICITED RESULTS Final Result [facility] [address] [place] [address] * (ABNORMAL) CBC (09/18/2024 7:17 AM EST) WBC 8.56 4.00 - 10.80 K/uL 09/18/2024 [...] LAB BLOOD ORDERABLES Final Resul t LABORATORY [facility] [address] [place] [address] * (ABNORMAL) BASIC METABOLIC PANEL [...] 7:17 AM EST 09/18/2024 7:32 AM EST Michelle Kaur MD LAB BLOOD ORDERABLES Final Resul t [facility] [address] [place] [address] * PHOSPHORUS (09/18/2024 7:17 AM EST) Phosphorus 4.0 2.5 - 4.8 mg/dL 09/18/2024 7:58 AM EST [facility] Blood Venous blood specimen / Unknown Venipuncture / Unknown 09/18/2024 7:17 AM EST 09/18/2024 7:32 AM EST Alfreda DAHL LAB BLOOD ORDERABLE S Final Result Performing Organization Address City/[facility]/ZIP Co de Phone Number [facility] [address] [place] [address] * MAGNESIUM (09/18/2024 7:17 AM EST) Magnesium 2.0 1.5 - 2.6 mg/dL 09/18/2024 7:58 AM EST [facility] Blood Venous blood specimen / Unknown Venipuncture / Unknown 09/18/2024 7:17 AM EST 09/18/2024 7:32 AM EST Alfreda DAHL LAB BLOOD ORDERABLE S Final Result [facility] [address] [place] [address] * (ABNORMAL) GLUCOSE METER, POINT OF CARE (09/17/2024 8:41 PM EST) Glucose - POCT 195(H) 70 - 120 mg/dL 09/17/2024 8:44 PM EST [employer] Blood Whole blood specimen / Unknown 09/17/2024 8:41 PM EST 09/17/2024 8:44 PM EST Catalino Valentino MD LAB POINT OF CARE TE ST DOCKED DEVICE UNSOLICITED RESULTS Final Result [facility] [address] [place] [address] * (ABNORMAL) GLUCOSE METER, POINT OF CARE (09/17/2024 5:01 PM EST) Pathologist [facility] Glucose - POCT 141(H) 70 - 120 mg/dL 09/17/2024 5:06 PM EST [employer] Blood Whole blood specimen / Unknown 09/17/2024 5:01 PM EST 09/17/2024 5:05 PM EST Catalino Valentino MD LAB POINT OF CARE TE ST DOCKED DEVICE UNSOLICITED RESULTS Final Result [facility] [address] [place] [address] * GLUCOSE METER, POINT OF CARE (09/17/2024 11:31 AM EST) Glucose - POCT 115 70 - 120 mg/dL 09/17/2024 11:38 AM EST [facility] Motorator Blood Whole blood specimen / Unknown 09/17/2024 11:31 AM EST 09/17/2024 11:38 AM EST us Catalino Valentino MD LAB POINT OF CARE TE ST DOCKED DEVICE UNSOLICITED RESULTS Final Result Performing Organization Address City/[facility]/ZIP Co de Phone Number [facility] [address] [place] [address] * (ABNORMAL) GLUCOSE METER, POINT OF CARE (09/17/2024 7:51 AM EST) Glucose - POCT 200(H) 70 - 120 mg/dL 09/17/2024 8:00 AM EST [employer] Blood Whole blood specimen / Unknown 09/17/2024 7:51 AM EST 09/17/2024 8:00 AM EST us Catalino Valentino MD LAB POINT OF CARE TE ST DOCKED DEVICE UNSOLICITED RESULTS Final Result Performing Organization Address [facility]/ZIP Co de Phone Number [facility] [address] [place] [address] * DIGOXIN LEVEL (09/17/2024 7:18 AM EST) Digoxin Level 0.9 0.5 - 1.1 ng/mL 09/17/2024 7:54 AM EST [facility] Blood Venous blood specimen / Unknown Venipuncture / Unknown 09/17/2024 7:18 AM EST 09/17/2024 7:24 AM EST Narrative [facility] - 09/17/2024 7:54 AM EST Recommended trough therapeutic ranges: 0.5 to 0.8 for heart failure 0.5 to 1.1 for atrial fibrillation us Catalino Valentino MD LAB BLOOD ORDERABLES Final Resul t LAB[facility]ATORY [facility] [address] [place] [address] * (ABNORMAL) BASIC METABOLIC PANEL (09/17/2024 7:18 [...] 15 mmol/L 09/17/2024 7:54 AM EST [facility] GLUCOSE 158(H) 70 - 120 mg/dL 09/17/2024 7:54 AM EST [facility] CALCIUM 8.5 8.4 - 10.2 mg/dL 09/17/2024 7:54 AM EST [facility] Blood Venous blood specimen / Unknown Venipuncture / Unknown 09/17/2024 7:18 AM EST 09/17/2024 7:24 AM EST us Michelle Kaur MD LAB BLOOD ORDERABLES Final Resul t LAB[facility]ATORY [facility] [address] [place] [address] * (ABNORMAL) PHOSPHORUS (09/17/2024 7:18 AM EST) Phosphorus 2.0(L) 2.5 - 4.8 mg/dL 09/17/2024 7:54 AM EST [facility] Blood Venous blood specimen / Unknown Venipuncture / Unknown 09/17/2024 7:18 AM EST 09/17/2024 7:24 AM EST Alfreda DAHL LAB BLOOD ORDERABLE S Final Result [facility] [address] [place] [address] * MAGNESIUM (09/17/2024 7:18 AM EST) Pathologist [facility] Magnesium 1.6 1.5 - 2.6 mg/dL 09/17/2024 7:54 AM EST [facility] Blood Venous blood specimen / Unknown Venipuncture / Unknown 09/17/2024 7:18 AM EST 09/17/2024 7:24 AM EST Alfreda DAHL LAB BLOOD ORDERABLE S Final Result Performing Organization Address City/[facility]/ZIP Co de Phone Number [facility] [address] [place] [address] * (ABNORMAL) GLUCOSE METER, POINT OF CARE (09/16/2024 10:27 PM EST) [facility] Glucose - POCT 162(H) 70 - 120 mg/dL 09/16/2024 10:32 PM EST [employer] Blood Whole blood specimen / Unknown 09/16/2024 10:27 PM EST 09/16/2024 10:32 PM EST Catalino Valentino MD LAB POINT OF CARE TE ST DOCKED DEVICE UNSOLICITED RESULTS Final Result Performing Organization Address City/[facility]/ZIP Co de Phone Number [facility] [address] [place] [address] * (ABNORMAL) GLUCOSE METER, POINT OF CARE (09/16/2024 9:07 PM EST) [facility] Glucose - POCT 171(H) 70 - 120 mg/dL 09/16/2024 9:09 PM EST [employer] Blood Whole blood specimen / Unknown 09/16/2024 9:07 PM EST 09/16/2024 9:09 PM EST us Catalino Valentino MD LAB POINT OF CARE TE ST DOCKED DEVICE UNSOLICITED RESULTS Final Result Performing Organization Address City/[facility]/ZIP Co de Phone Number [facility] [address] [place] [address] * (ABNORMAL) GLUCOSE METER, POINT OF CARE (09/16/2024 4:42 PM EST) Pathologist [facility] Glucose - POCT 148(H) 70 - 120 mg/dL 09/16/2024 4:45 PM EST [facility] Blood Whole blood specimen / Unknown 09/16/2024 4:42 PM EST 09/16/2024 4:45 PM EST us Catalino Valentino MD LAB POINT OF CARE TE ST DOCKED DEVICE UNSOLICITED RESULTS Final Result Performing Organization Address [facility] Co de Phone Number [facility] [address] [place] [address] * (ABNORMAL) BASIC METABOLIC PANEL (09/16/2024 8:01 AM EST) Pathologist [facility] BUN 15 6 - 20 mg/dL 09/16/2024 [...] 15 mmol/L 09/16/2024 8:37 AM EST [facility] GLUCOSE 132(H) 70 - 120 mg/dL 09/16/2024 8:37 AM EST [facility] CALCIUM 8.5 8.4 - 10.2 mg/dL 09/16/2024 8:37 AM EST [facility] Blood Venous blood specimen / Unknown Venipuncture / Unknown 09/16/2024 8:01 AM EST 09/16/2024 8:11 AM EST Michelle Kaur MD LAB BLOOD ORDERABLES Final Resul t LABORATORY [facility] [address] [place] [address] * PHOSPHORUS (09/16/2024 8:01 AM EST) Phosphorus 3.4 2.5 - 4.8 mg/dL 09/16/2024 8:37 AM EST [facility] Blood Venous blood specimen / Unknown Venipuncture / Unknown 09/16/2024 8:01 AM EST 09/16/2024 8:11 AM EST Alfreda DAHL LAB BLOOD ORDERABLE S Final Result Performing Organization Address [facility] Co de Phone Number [facility] [address] [place] [address] * MAGNESIUM (09/16/2024 8:01 AM EST) Magnesium 2.0 1.5 - 2.6 mg/dL 09/16/2024 8:37 AM EST LABORATORY [facility] Blood Venous blood specimen / Unknown Venipuncture / Unknown 09/16/2024 8:01 AM EST 09/16/2024 8:11 AM EST Alfreda DAHL LAB BLOOD ORDERABLE S Final Result Performing Organization Address City/[facility]/ZIP Co de Phone Number [facility] [address] [place] [address] * (ABNORMAL) GLUCOSE METER, POINT OF CARE (09/16/2024 7:41 AM EST) Glucose - POCT 122(H) 70 - 120 mg/dL 09/16/2024 7:50 AM EST [employer] Blood Whole blood specimen / Unknown 09/16/2024 7:41 AM EST 09/16/2024 7:50 AM EST us Catalino Valentino MD LAB POINT OF CARE TE ST DOCKED DEVICE UNSOLICITED RESULTS Final Result [facility] [address] [place] [address] * (ABNORMAL) GLUCOSE METER, POINT OF CARE (09/15/2024 9:25 PM EST) Glucose - POCT 144(H) 70 - 120 mg/dL 09/15/2024 9:42 PM EST [employer] Blood Whole blood specimen / Unknown 09/15/2024 9:25 PM EST 09/15/2024 9:42 PM EST us Catalino Valentino MD LAB POINT OF CARE TE ST DOCKED DEVICE UNSOLICITED RESULTS Final Result [facility] [address] [place] [address] * (ABNORMAL) GLUCOSE METER, POINT OF CARE (09/15/2024 4:51 PM EST) Glucose - POCT 146(H) 70 - 120 mg/dL 09/15/2024 5:13 PM EST [employer] Blood Whole blood specimen / Unknown 09/15/2024 4:51 PM EST 09/15/2024 5:13 PM EST us Catalino Valentino MD LAB POINT OF CARE TE ST DOCKED DEVICE UNSOLICITED RESULTS Final Result [facility] [address] [place] [address] * (ABNORMAL) GLUCOSE METER, POINT OF CARE (09/15/2024 11:25 AM EST) Glucose - POCT 168(H) 70 - 120 mg/dL 09/15/2024 11:41 AM EST [employer] Blood Whole blood specimen / Unknown 09/15/2024 11:25 AM EST 09/15/2024 11:41 AM EST us Catalino Valentino MD LAB POINT OF CARE TE ST DOCKED DEVICE UNSOLICITED RESULTS Final Result [facility] [address] [place] [address] * POTASSIUM, WHOLE BLOOD (09/15/2024 10:33 AM EST) Potassium 4.7 3.5 - 5.1 mmol/L 09/15/2024 10:43 AM EST [facility] Blood Venous blood specimen / Unknown Venipuncture / Unknown 09/15/2024 10:33 AM EST 09/15/2024 10:39 AM EST us Catalino Valentino MD LAB BLOOD ORDERABLES Final Resul t LABORATORY [facility] [address] [place] [address] * (ABNORMAL) GLUCOSE METER, POINT OF CARE (09/15/2024 7:32 AM EST) Glucose - POCT 123(H) 70 - 120 mg/dL 09/15/2024 7:58 AM EST [employer] Blood Whole blood specimen / Unknown 09/15/2024 7:32 AM EST 09/15/2024 7:57 AM EST us Catalino Valentino MD LAB POINT OF CARE TE ST DOCKED DEVICE UNSOLICITED RESULTS Final Result [facility] [address] [place] [address] * XR CHEST 1 VIEW (09/15/2024 7:19 [...] plugging/pneumonia not excluded. Catalino Valentino MD RADIOLOGY ([facility]) Final Re sult * (ABNORMAL) BASIC METABOLIC PANEL (09/15/2024 6:45 [...] LAB BLOOD ORDERABLES Final Resul t LABORATORY [facility] [address] [place] [address] * PHOSPHORUS (09/15/2024 6:45 AM EST) Phosphorus 3.8 2.5 - 4.8 mg/dL 09/15/2024 7:57 AM EST [facility] Blood Venous blood specimen / Unknown Venipuncture / Unknown 09/15/2024 6:45 AM EST 09/15/2024 7:23 AM EST Alfreda DAHL LAB BLOOD ORDERABLE S Final Result [facility] [address] [place] [address] * MAGNESIUM (09/15/2024 6:45 AM EST) Magnesium 2.4 1.5 - 2.6 mg/dL 09/15/2024 7:57 AM EST [facility] Blood Venous blood specimen / Unknown Venipuncture / Unknown 09/15/2024 6:45 AM EST 09/15/2024 7:23 AM EST Alfreda DAHL LAB BLOOD ORDERABLE S Final Result [facility] [address] [place] [address] * (ABNORMAL) GLUCOSE METER, POINT OF CARE (09/14/2024 8:53 PM EST) Glucose - POCT 146(H) 70 - 120 mg/dL 09/14/2024 8:56 PM EST [employer] Blood Whole blood specimen / Unknown 09/14/2024 8:53 PM EST 09/14/2024 8:56 PM EST Catalino Valentino MD LAB POINT OF CARE TE ST DOCKED DEVICE UNSOLICITED RESULTS Final Result [facility] [employer] [facility] [address] [place] [address] * (ABNORMAL) GLUCOSE METER, POINT OF CARE (09/14/2024 6:03 PM EST) Glucose - POCT 160(H) 70 - 120 mg/dL 09/14/2024 6:05 PM EST [employer] Blood Whole blood specimen / Unknown 09/14/2024 6:03 PM EST 09/14/2024 6:05 PM EST us Catalino Valentino MD LAB POINT OF CARE TE ST DOCKED DEVICE UNSOLICITED RESULTS Final Result [facility] [address] [place] [address] * MAGNESIUM (09/14/2024 5:43 PM EST) Magnesium 1.7 1.5 - 2.6 mg/dL 09/14/2024 7:28 PM EST [facility] [place] Venous blood specimen / Unknown Venipuncture / Unknown 09/14/2024 5:43 PM EST 09/14/2024 5:48 PM EST Nancy Plummer PA-C LAB BLOOD ORDERABLES Final Resu lt [facility] [address] [place] [address] * (ABNORMAL) BASIC METABOLIC PANEL (09/14/2024 5:43 PM EST) BUN 14 6 - 20 mg/dL 09/14/2024 6:18 PM EST LABORATORY [facility] CREATININE 1.6(H) 0.6 - 1.2 mg/dL 09/14/2024 [...] Final Resul t [facility] [address] [place] [address] * (ABNORMAL) GLUCOSE METER, POINT OF CARE (09/14/2024 11:38 AM EST) [facility] Glucose - POCT 169(H) 70 - 120 mg/dL 09/14/2024 11:49 AM EST [facility] Blood Whole blood specimen / Unknown 09/14/2024 11:38 AM EST 09/14/2024 11:49 AM EST us Catalino Valenitno MD LAB POINT OF CARE TE ST DOCKED DEVICE UNSOLICITED RESULTS Final Result Performing Organization Address City/[facility]/ZIP Co de Phone Number [facility] [address] [place] [address] * (ABNORMAL) CBC (09/14/2024 8:08 AM EST) Pathologist [facility] WBC 7.84 4.00 - 10.80 K/uL 09/14/2024 [...] LAB BLOOD ORDERABLES Final Resul t LAB[facility]ORY [facility] [address] [place] [address] * (ABNORMAL) GLUCOSE METER, POINT OF CARE (09/14/2024 7:29 AM EST) Pathologist [facility] Glucose - POCT 122(H) 70 - 120 mg/dL 09/14/2024 7:35 AM EST [facility] Blood Whole blood specimen / Unknown 09/14/2024 7:29 AM EST 09/14/2024 7:35 AM EST us Catalino Valentino MD LAB POINT OF CARE TE ST DOCKED DEVICE UNSOLICITED RESULTS Final Result [facility] [address] [place] [address] * (ABNORMAL) BASIC METABOLIC PANEL (09/14/2024 6:44 AM EST) BUN 13 6 - 20 mg/dL 09/14/2024 7:38 AM EST LABORATORY [facility] CREATININE 1.5(H) 0.6 - 1.2 mg/dL 09/14/2024 7:38 AM EST [facility] EGFR 45(L) >=60 mL/min 09/14/2024 7:38 AM EST [facility] Comment:eGFR is calculated [...] 6:44 AM EST 09/14/2024 6:55 AM EST us Michelle Kaur MD LAB BLOOD ORDERABLES Final Resul t Performing Organization Address City/[facility]/ZIP Co de Phone Number [facility] [address] [place] [address] * PHOSPHORUS (09/14/2024 6:44 AM EST) Pathologist [facility] Phosphorus 3.2 2.5 - 4.8 mg/dL 09/14/2024 7:38 AM EST [facility] Blood Venous blood specimen / Unknown Venipuncture / Unknown 09/14/2024 6:44 AM EST 09/14/2024 6:55 AM EST us Alfreda DAHL LAB BLOOD ORDERABLE S Final Result Performing Organization Address City/[facility]/ZIP Co de Phone Number [facility] [address] [place] [address] * MAGNESIUM (09/14/2024 6:44 AM EST) Magnesium 1.7 1.5 - 2.6 mg/dL 09/14/2024 7:38 AM EST [facility] Blood Venous blood specimen / Unknown Venipuncture / Unknown 09/14/2024 6:44 AM EST 09/14/2024 6:55 AM EST Alfreda DAHL LAB BLOOD ORDERABLE S Final Result [facility] [address] [place] [address] * (ABNORMAL) GLUCOSE METER, POINT OF CARE (09/13/2024 9:05 PM EST) [facility] Glucose - POCT 159(H) 70 - 120 mg/dL 09/13/2024 9:56 PM EST [employer] Blood Whole blood specimen / Unknown 09/13/2024 9:05 PM EST 09/13/2024 9:56 PM EST Michelle Kaur MD LAB POINT OF CARE TE ST DOCKED DEVICE UNSOLICITED RESULTS Final Result Performing Organization Address City/[facility]/ZIP Co de Phone Number [facility] [address] [place] [address] * GLUCOSE METER, POINT OF CARE (09/13/2024 4:28 PM EST) [facility] Glucose - POCT 101 70 - 120 mg/dL 09/13/2024 4:38 PM EST [employer] Blood Whole blood specimen / Unknown 09/13/2024 4:28 PM EST 09/13/2024 4:38 PM EST Michelle Kaur MD LAB POINT OF CARE TE ST DOCKED DEVICE UNSOLICITED RESULTS Final Result Performing Organization Address City/[facility]/ZIP Co de Phone Number [facility] [address] [place] [address] * (ABNORMAL) GLUCOSE METER, POINT OF CARE (09/13/2024 11:48 AM EST) [facility] Glucose - POCT 196(H) 70 - 120 mg/dL 09/13/2024 12:07 PM EST [employer] Blood Whole blood specimen / Unknown 09/13/2024 11:48 AM EST 09/13/2024 12:07 PM EST us Michelle Kaur MD LAB POINT OF CARE TE ST DOCKED DEVICE UNSOLICITED RESULTS Final Result [facility] [address] [place] [address] * GLUCOSE METER, POINT OF CARE (09/13/2024 7:43 AM EST) [facility] Glucose - POCT 107 70 - 120 mg/dL 09/13/2024 7:58 AM EST [employer] Blood Whole blood specimen / Unknown 09/13/2024 7:43 AM EST 09/13/2024 7:58 AM EST Michelle Kaur MD LAB POINT OF CARE TE ST DOCKED DEVICE UNSOLICITED RESULTS Final Result Performing Organization Address City/[facility]/ZIP Co de Phone Number [place] [address] [place] [address] * (ABNORMAL) BASIC METABOLIC PANEL (09/13/2024 5:58 AM EST) [facility] BUN 13 6 - 20 mg/dL 09/13/2024 [...] ORDERABLES Final Resul t Performing Organization Address City/[facility] de Phone Number [facility] [address] [place] [address] * PHOSPHORUS (09/13/2024 5:58 AM EST) Phosphorus 4.2 2.5 - 4.8 mg/dL 09/13/2024 6:38 AM EST [facility] Blood Venous blood specimen / Unknown Venipuncture / Unknown 09/13/2024 5:58 AM EST 09/13/2024 6:06 AM EST Alfreda DAHL LAB BLOOD ORDERABLE S Final Result Performing Organization Address City/[facility] Co de Phone Number [facility] [address] [place] [address] * MAGNESIUM (09/13/2024 5:58 AM EST) Magnesium 1.9 1.5 - 2.6 mg/dL 09/13/2024 6:38 AM EST [facility] Blood Venous blood specimen / Unknown Venipuncture / Unknown 09/13/2024 5:58 AM EST 09/13/2024 6:06 AM EST Alfreda DAHL LAB BLOOD ORDERABLE S Final Result Performing Organization Address City/[facility]/ZIP Co de Phone Number [facility] [address] [place] [address] * (ABNORMAL) GLUCOSE METER, POINT OF CARE (09/12/2024 8:48 PM EST) Glucose - POCT 131(H) 70 - 120 mg/dL 09/12/2024 9:01 PM EST [employer] Blood Whole blood specimen / Unknown 09/12/2024 8:48 PM EST 09/12/2024 9:01 PM EST Michelle Kaur MD LAB POINT OF CARE TE ST DOCKED DEVICE UNSOLICITED RESULTS Final Result Performing Organization Address [facility] Co de Phone Number [facility] [address] [place] [address] * (ABNORMAL) GLUCOSE METER, POINT OF CARE (09/12/2024 4:33 PM EST) Glucose - POCT 234(H) 70 - 120 mg/dL 09/12/2024 4:55 PM EST [employer] [facility] Blood Whole blood specimen / Unknown 09/12/2024 4:33 PM EST 09/12/2024 4:55 PM EST Michelle Kaur MD LAB POINT OF CARE TE ST DOCKED DEVICE UNSOLICITED RESULTS Final Result Performing Organization Address City/[facility]/ZIP Co de Phone Number [facility] [address] [place] [address] * (ABNORMAL) IRON SCREEN, INCLUDING TIBC (09/12/2024 4:24 PM EST) Iron 43(L) 45 - 176 ug/dL 09/12/2024 5:36 PM EST [facility] Iron Binding Capacity 190(L) 250 - 425 ug/dL 09/12/2024 5:36 PM EST [facility] Transferrin Saturation Percent 23 15 - 55 % 09/12/2024 5:36 PM EST [facility] Blood Venous blood specimen / Unknown Venipuncture / Unknown 09/12/2024 4:24 PM EST 09/12/2024 4:39 PM EST Michelle Kaur MD LAB BLOOD ORDERABLES Final Resul t Performing Organization Address City/[facility]/ZIP Co de Phone Number [facility] [address] [place] [address] * (ABNORMAL) GLUCOSE METER, POINT OF CARE (09/12/2024 12:51 PM EST) Glucose - POCT 144(H) 70 - 120 mg/dL 09/12/2024 12:56 PM EST [employer] Blood Whole blood specimen / Unknown 09/12/2024 12:51 PM EST 09/12/2024 12:56 PM EST us Michelle Kaur MD LAB POINT OF CARE TE ST DOCKED DEVICE UNSOLICITED RESULTS Final Result Performing Organization Address [facility] Co de Phone Number [facility] [address] [place] [address] * (ABNORMAL) GLUCOSE METER, POINT OF CARE (09/12/2024 10:23 AM EST) Glucose - POCT 156(H) 70 - 120 mg/dL 09/12/2024 10:28 AM EST [employer] Blood Whole blood specimen / Unknown 09/12/2024 10:23 AM EST 09/12/2024 10:28 AM EST Michelle Kaur MD LAB POINT OF CARE TE ST DOCKED DEVICE UNSOLICITED RESULTS Final Result Performing Organization Address [facility] Co de Phone Number [facility] [address] [place] [address] * CT HEAD/BRAIN WO CONTRAST (09/12/2024 10:07 [...] - 120 mg/dL 09/12/2024 8:41 AM EST [facility] Blood Whole blood specimen / Unknown 09/12/2024 8:08 AM EST 09/12/2024 8:41 AM EST Michelle Kaur MD LAB POINT OF CARE TE ST DOCKED DEVICE UNSOLICITED RESULTS Final Result [facility] [address] [place] [address] * VITAMIN B12 (09/12/2024 7:21 AM EST) Vitamin B12 832 232 - 1,245 pg/mL 09/12/2024 2:00 PM EST [facility] [place] Venous blood specimen / Unknown Venipuncture / Unknown 09/12/2024 7:21 AM EST 09/12/2024 7:41 AM EST Michelle Kaur MD LAB BLOOD ORDERABLES Final Resul t [facility] [place] [address] [place] [address] * FOLIC ACID (09/12/2024 7:21 AM EST) Pathologist [facility] [facility] Folic Acid 7.2 >4.5 ng/mL 09/12/2024 2:00 PM EST [facility] Comment:Results may be false ly elevated due to hemolysis. Blood Venous blood specimen / Unknown Venipuncture / Unknown 09/12/2024 7:21 AM EST 09/12/2024 7:41 AM EST us Michelle Kaur MD LAB BLOOD ORDERABLES Final Resul t Performing Organization Address [facility] Co de Phone Number [facility] [address] [place] [address] * FERRITIN (09/12/2024 7:21 AM EST) Pathologist [facility] Ferritin 259 30 - 400 ng/mL 09/12/2024 2:00 PM EST [facility] Blood Venous blood specimen / Unknown Venipuncture / Unknown 09/12/2024 7:21 AM EST 09/12/2024 7:41 AM EST us Michelle Kaur MD LAB BLOOD ORDERABLES Final Resul t Performing Organization Address [facility] Co de Phone Number [facility] [address] [place] [address] * PHOSPHORUS (09/12/2024 7:21 AM EST) Phosphorus 3.8 2.5 - 4.8 mg/dL 09/12/2024 8:08 AM EST [facility] Blood Venous blood specimen / Unknown Venipuncture / Unknown 09/12/2024 7:21 AM EST 09/12/2024 7:41 AM EST Alfreda INGRAMNP LAB BLOOD ORDERABLE S Final Result Performing Organization Address City/[facility]/ZIP Co de Phone Number [facility] [address] [place] [address] * MAGNESIUM (09/12/2024 7:21 AM EST) Pathologist [facility] Magnesium 2.1 1.5 - 2.6 mg/dL 09/12/2024 8:08 AM EST [facility] Blood Venous blood specimen / Unknown Venipuncture / Unknown 09/12/2024 7:21 AM EST 09/12/2024 7:41 AM EST [facility] Lisset Thakkar [facility] LAB BLOOD ORDERABLE S Final Result Performing Organization Address City/[facility] de Phone Number LABORATORY [place] [address] [place] [address] * (ABNORMAL) BASIC METABOLIC PANEL (09/12/2024 7:21 AM EST) Pathologist [facility] BUN 15 6 - 20 mg/dL 09/12/2024 8:08 AM EST [facility] CREATININE 1.4(H) 0.6 - 1.2 mg/dL 09/12/2024 8:08 AM EST [facility] EGFR 47(L) >=60 mL/min 09/12/2024 8:08 AM EST [facility] Comment:eGFR is calculated b ased on the [...] ORDERABLE S Final Result [facility] [address] [place] [address] * (ABNORMAL) CBC (09/12/2024 7:21 AM EST) [...] 11.1 fL 09/12/2024 7:49 AM EST [facility] nRBCs 0 <=0 /100 WBCs 09/12/2024 7:49 AM EST [facility] Blood Venous blood specimen / Unknown Venipuncture / Unknown 09/12/2024 7:21 AM EST 09/12/2024 7:41 AM EST Alfreda DAHL LAB BLOOD ORDERABLE S Final Result [facility] [address] [place] [address] * (ABNORMAL) GLUCOSE METER, POINT OF CARE (09/11/2024 11:36 PM EST) [facility] Glucose - POCT 209(H) 70 - 120 mg/dL 09/12/2024 12:49 AM EST [employer] [facility] [employer] [facility] Blood Whole blood specimen / Unknown 09/11/2024 11:36 PM EST 09/12/2024 12:49 AM EST Harper Recinos MD LAB POINT OF CARE TE ST DOCKED DEVICE UNSOLICITED RESULTS Final Result Performing Organization Address City/[facility]/ZIP Co de Phone Number [facility] [address] [place] [address] * XR CHEST 1 VIEW (09/11/2024 11:12 PM EST) Anatomical Region Laterality Modality Chest Computed Radiogr aphy 09/12/2024 12:1 0 AM EST Impressions 09/12/2024 12:07 AM EST IMPRESSION 1. No significant interval change. Narrative 09/12/2024 12:07 AM EST EXAM XR CHEST 1 VIEW-09/11/2024 11:12 pm HISTORY SOB and increase O2 supply COMPARISON XR CHEST 1 VIEW, ACC: [id number], dated 2024-09-10 03:37:51; XR CHEST 1 VIEW, ACC: [id number], dated 2024-09-08 11:36:42 TECHNIQUE Frontal chest radiograph obtained. FINDINGS Stable cardiomediastinal. A loop recorder projected over the left chest. Stable pulmonary opacities. Pleural effusions and basilar atelectasis. No pneumothorax. Degenerative osseous changes. Procedure Note Tushar Cornejo MD - 09/12/2024 EXAM XR CHEST 1 VIEW-09/11/2024 11:12 pm HISTORY SOB and increase O2 supply COMPARISON XR CHEST 1 VIEW, ACC: [id number], dated 2024-09-10 03:37:51; XR CHEST 1 VIEW, ACC: [id number], dated 2024-09-08 11:36:42 TECHNIQUE Frontal chest radiograph obtained. FINDINGS Stable cardiomediastinal. A loop recorder projected over the leftchest. Stable pulmonary opacities. Pleural effusions and basilar atelectasis. No pneumothorax. Degenerative osseous changes. IMPRESSION IMPRESSION 1. No significant interval change. [facility] Joshua Tao MD RADIOLOGY (RAD GENERAL) [...] PM EST 09/11/2024 10:47 PM EST us Warner Tao MD LAB BLOOD ORDERABLES Fi nal Result LAB[facility]ATORY [facility] [address] [place] [address] * (ABNORMAL) GLUCOSE METER, POINT OF CARE (09/11/2024 8:57 PM EST) Glucose - POCT 159(H) 70 - 120 mg/dL 09/11/2024 9:10 PM EST [facility] Blood Whole blood specimen / Unknown 09/11/2024 8:57 PM EST 09/11/2024 9:10 PM EST us Sagar Ohara MD LAB POINT OF CARE TEST DOCKED DEVICE UNSOLICITED RESULTS Final Result [facility] [address] [place] [address] * (ABNORMAL) GLUCOSE METER, POINT OF CARE (09/11/2024 4:59 PM EST) Glucose - POCT 140(H) 70 - 120 mg/dL 09/11/2024 5:16 PM EST [employer] Blood Whole blood specimen / Unknown 09/11/2024 4:59 PM EST 09/11/2024 5:15 PM EST us Sagar Ohara MD LAB POINT OF CARE TEST DOCKED DEVICE UNSOLICITED RESULTS Final Result [facility] [address] [place] [address] * (ABNORMAL) GLUCOSE METER, POINT OF CARE (09/11/2024 11:30 AM EST) Pathologist [facility] Glucose - POCT 161(H) 70 - 120 mg/dL 09/11/2024 11:38 AM EST [facility] [employer] [facility] Blood Whole blood specimen / Unknown 09/11/2024 11:30 AM EST 09/11/2024 11:38 AM EST us Scott Frankel MD LAB POINT OF CARE TEST DOCKED DEVICE UNSOLICITED RESULTS Final Result [facility] [address] [place] [address] * (ABNORMAL) CBC (09/11/2024 8:04 AM EST) [...] AM EST 09/11/2024 8:09 AM EST Alfreda INGRAMNP LAB BLOOD ORDERABLE S Final Result Performing Organization Address City/[facility] Co de Phone Number LABORATORY [place] [address] [place] [address] * PHOSPHORUS (09/11/2024 6:44 AM EST) Phosphorus 3.4 2.5 - 4.8 mg/dL 09/11/2024 7:36 AM EST LABORATORY [facility] Blood Venous blood specimen / Unknown Venipuncture / Unknown 09/11/2024 6:44 AM EST 09/11/2024 7:03 AM EST Alfreda INGRAMNP LAB BLOOD ORDERABLE S Final Result [facility] [address] [place] [address] * MAGNESIUM (09/11/2024 6:44 AM EST) Magnesium 1.8 1.5 - 2.6 mg/dL 09/11/2024 7:36 AM EST LAB[facility]ATORY [facility] Blood Venous blood specimen / Unknown Venipuncture / Unknown 09/11/2024 6:44 AM EST 09/11/2024 7:03 AM EST Alfreda INGRAMNP LAB BLOOD ORDERABLE S Final Result [facility] [address] [place] [address] * (ABNORMAL) BASIC METABOLIC PANEL (09/11/2024 6:44 AM EST) Pathologist [facility] BUN 15 6 - 20 mg/dL 09/11/2024 [...] LAB BLOOD ORDERABLE S Final Result [facility] [address] [place] [address] * (ABNORMAL) GLUCOSE METER, POINT OF CARE (09/11/2024 5:26 AM EST) [facility] Glucose - POCT 126(H) 70 - 120 mg/dL 09/11/2024 5:38 AM EST [employer] Blood Whole blood specimen / Unknown 09/11/2024 5:26 AM EST 09/11/2024 5:38 AM EST Scott Frankel MD LAB POINT OF CARE TEST DOCKED DEVICE UNSOLICITED RESULTS Final Result [facility] [address] [place] [address] * GLUCOSE METER, POINT OF CARE (09/11/2024 12:18 AM EST) Glucose - POCT 118 70 - 120 mg/dL 09/11/2024 12:23 AM EST [employer] Blood Whole blood specimen / Unknown 09/11/2024 12:18 AM EST 09/11/2024 12:23 AM EST Scott Frankel MD LAB POINT OF CARE TEST DOCKED DEVICE UNSOLICITED RESULTS Final Result Performing Organization Address City/[facility]/ZIP Co de Phone Number [facility] [address] [place] [address] * (ABNORMAL) GLUCOSE METER, POINT OF CARE (09/10/2024 6:05 PM EST) Glucose - POCT 128(H) 70 - 120 mg/dL 09/10/2024 6:07 PM EST [employer] Blood Whole blood specimen / Unknown 09/10/2024 6:05 PM EST 09/10/2024 6:07 PM EST Scott Frankel MD LAB POINT OF CARE TEST DOCKED DEVICE UNSOLICITED RESULTS Final Result [facility] [address] [place] [address] * (ABNORMAL) GLUCOSE METER, POINT OF CARE (09/10/2024 11:58 AM EST) Glucose - POCT 153(H) 70 - 120 mg/dL 09/10/2024 12:13 PM EST [facility] [employer] Blood Whole blood specimen / Unknown 09/10/2024 11:58 AM EST 09/10/2024 12:13 PM EST Scott Frankel MD LAB POINT OF CARE TEST DOCKED DEVICE UNSOLICITED RESULTS Final Result [facility] [address] [place] [address] * (ABNORMAL) GLUCOSE METER, POINT OF CARE (09/10/2024 6:07 AM EST) Pathologist [facility] Glucose - POCT 138(H) 70 - 120 mg/dL 09/10/2024 6:11 AM EST [facility] Blood Whole blood specimen / Unknown 09/10/2024 6:07 AM EST 09/10/2024 6:11 AM EST Scott Frankel MD LAB POINT OF CARE TEST DOCKED DEVICE UNSOLICITED RESULTS Final Result Performing Organization Address City/[facility]/ZIP Co de Phone Number [facility] [address] [place] [address] * PHOSPHORUS (09/10/2024 6:03 AM EST) Pathologist [facility] Phosphorus 3.8 2.5 - 4.8 mg/dL 09/10/2024 6:44 AM EST [facility] Blood Venous blood specimen / Unknown Venipuncture / Unknown 09/10/2024 6:03 AM EST 09/10/2024 6:09 AM EST Alfreda DAHL LAB BLOOD ORDERABLE S Final Result [facility] [address] [place] [address] * MAGNESIUM (09/10/2024 6:03 AM EST) Magnesium 1.7 1.5 - 2.6 mg/dL 09/10/2024 6:44 AM EST [facility]ATORY [facility] Blood Venous blood specimen / Unknown Venipuncture / Unknown 09/10/2024 6:03 AM EST 09/10/2024 6:09 AM EST Alfreda INGRAMNP LAB BLOOD ORDERABLE S Final Result [facility] [address] [place] [address] * (ABNORMAL) BASIC METABOLIC PANEL (09/10/2024 6:03 AM EST) BUN 16 6 - 20 mg/dL 09/10/2024 6:44 AM EST [facility] CREATININE 1.4(H) 0.6 - 1.2 mg/dL 09/10/2024 6:44 AM EST [facility] EGFR 49(L) >=60 mL/min 09/10/2024 6:44 AM EST LABORATORY [facility] Comment:eGFR is calculated b ased on the [...] 15 mmol/L 09/10/2024 6:44 AM EST LAB[facility]ORY [facility] GLUCOSE 140(H) 70 - 120 mg/dL 09/10/2024 6:44 AM EST LAB[facility]ORY [facility] CALCIUM 8.5 8.4 - 10.2 mg/dL 09/10/2024 6:44 AM EST LABORATORY [facility] Blood Venous blood specimen / Unknown Venipuncture / Unknown 09/10/2024 6:03 AM EST 09/10/2024 6:09 AM EST Alfreda INGRAMNP LAB BLOOD ORDERABLE S Final Result Performing Organization Address City/[facility]/ZIP Co de Phone Number LABORATORY [facility] [address] [place] [address] * (ABNORMAL) CBC (09/10/2024 6:03 AM EST) [facility] WBC 7.49 4.00 - 10.80 K/uL 09/10/2024 [...] ORDERABLE S Final Result Performing Organization Address City/[facility]/ZIP Co de Phone Number LABORATORY [facility] [address], [place] [id number] * XR CHEST 1 VIEW (09/10/2024 3:42 [...] - 120 mg/dL 09/10/2024 12:13 AM EST [employer] Blood Whole blood specimen / Unknown 09/10/2024 12:08 AM EST 09/10/2024 12:13 AM EST Scott Frankel MD LAB POINT OF CARE TEST DOCKED DEVICE UNSOLICITED RESULTS Final Result [facility] [employer] [facility] [address] [place] [address] * (ABNORMAL) GLUCOSE METER, POINT OF CARE (09/09/2024 4:43 PM EST) Glucose - POCT 121(H) 70 - 120 mg/dL 09/09/2024 4:49 PM EST [employer] Blood Whole blood specimen / Unknown 09/09/2024 4:43 PM EST 09/09/2024 4:49 PM EST Scott Frankel MD LAB POINT OF CARE TEST DOCKED DEVICE UNSOLICITED RESULTS Final Result [facility] [address] [place] [address] * (ABNORMAL) GLUCOSE METER, POINT OF CARE (09/09/2024 11:59 AM EST) Glucose - POCT 126(H) 70 - 120 mg/dL 09/09/2024 12:17 PM EST [employer] [facility] Blood Whole blood specimen / Unknown 09/09/2024 11:59 AM EST 09/09/2024 12:17 PM EST Scott Frankel MD LAB POINT OF CARE TEST DOCKED DEVICE UNSOLICITED RESULTS Final Result [facility] [address] [place] [address] * PHOSPHORUS (09/09/2024 7:49 AM EST) Phosphorus 2.8 2.5 - 4.8 mg/dL 09/09/2024 8:35 AM EST LABORATORY [facility] Blood Venous blood specimen / Unknown Venipuncture / Unknown 09/09/2024 7:49 AM EST 09/09/2024 8:08 AM EST Alfreda DAHL LAB BLOOD ORDERABLE S Final Result LAB[facility] [address] [place] [address] * MAGNESIUM (09/09/2024 7:49 AM EST) Magnesium 1.9 1.5 - 2.6 mg/dL 09/09/2024 8:35 AM EST LAB[facility]ATORY [facility] Blood Venous blood specimen / Unknown Venipuncture / Unknown 09/09/2024 7:49 AM EST 09/09/2024 8:08 AM EST Alfreda Lisset Ariane DAHL LAB BLOOD ORDERABLE S Final Result LABORATORY [facility] [address] [place] [address] * (ABNORMAL) BASIC METABOLIC PANEL (09/09/2024 7:49 AM EST) BUN 15 6 - 20 mg/dL 09/09/2024 [...] AM EST 09/09/2024 8:08 AM EST Alfreda Lyonkapilbrian HESHAM LAB BLOOD ORDERABLE S Final Result [facility] [address] [place] [address] * (ABNORMAL) CBC (09/09/2024 7:49 [...] 11.1 fL 09/09/2024 8:30 AM EST LAB[facility]ORY [facility] nRBCs 0 <=0 /100 WBCs 09/09/2024 8:30 AM EST [facility] Blood Venous blood specimen / Unknown Venipuncture / Unknown 09/09/2024 7:49 AM EST 09/09/2024 8:09 AM EST Alfreda Lissetangie DAHL LAB BLOOD ORDERABLE S Final Result [facility] [address] [place] [address] * (ABNORMAL) GLUCOSE METER, POINT OF CARE (09/09/2024 5:15 AM EST) Glucose - POCT 156(H) 70 - 120 mg/dL 09/09/2024 5:42 AM EST [employer] Blood Whole blood specimen / Unknown 09/09/2024 5:15 AM EST 09/09/2024 5:42 AM EST Scott Frankel MD LAB POINT OF CARE TEST DOCKED DEVICE UNSOLICITED RESULTS Final Result [facility] [address] [place] [address] * (ABNORMAL) GLUCOSE METER, POINT OF CARE (09/08/2024 9:43 PM EST) Glucose - POCT 153(H) 70 - 120 mg/dL 09/08/2024 9:51 PM EST [employer] Blood Whole blood specimen / Unknown 09/08/2024 9:43 PM EST 09/08/2024 9:51 PM EST Scott Frankel MD LAB POINT OF CARE TEST DOCKED DEVICE UNSOLICITED RESULTS Final Result [facility] [address] [place] [address] * EKG (09/08/2024 9:13 PM EST) 09/08/2024 9:13 PM EST Narrative Procedure Note Lane Crain MD - 09/08/2024 9:13 PM EST REASON FOR STUDY: Notify provider if obtaining EKG;Chest pain CONCLUSIONS: Normal sinus rhythm High QRS voltage may be normal variant or due to lve ( [place] product ) ST & T wave abnormality, consider lateral ischemia Abnormal ECG When compared with ECG of 08-Sep-2024 17:14, T wave inversion now evident in Lateral leads Ventricular Rate: 79 Atrial Rate: 79 CT Interval: 158 QRS Duration: 112 QT/QTc: 438/502 ms P-R-T Bartelso: 38 : 8 : 120 degrees us Power Mtathews MD EKG Final Res ult Performing Organization Address [facility] Co de Phone Number [facility] * EKG (09/08/2024 5:14 PM EST) 09/08/2024 5:14 PM EST Narrative Procedure Note Lane Crain MD - 09/08/2024 5:14 PM EST REASON FOR STUDY: Notify provider if obtaining EKG;Chest pain CONCLUSIONS: Poor data quality, interpretation may be adversely affected Normal sinus rhythm High QRS voltage may be normal variant or due to lve ( [place] product ) Nonspecific ST abnormality Prolonged QT interval or tu fusion, consider myocardial disease,electrolyte imbalance, or drug effects Abnormal ECG When compared with ECG of 07-Sep-2024 13:25, Premature ventricular complexes are no longer Present Criteria for Septal infarct are no longer Present Ventricular Rate: 84 Atrial Rate: 84 CT Interval: 170 QRS Duration: 114 QT/QTc: 412/486 ms P-R-T Bartelso: 36 : -12 : 78 degrees us Power Matthews MD EKG Final Res ult Performing Organization Address [facility] Co de Phone Number [facility] * GLUCOSE METER, POINT OF CARE (09/08/2024 4:16 PM EST) [facility] Glucose - POCT 106 70 - 120 mg/dL 09/08/2024 4:32 PM EST [employer] Blood Whole blood specimen / Unknown 09/08/2024 4:16 PM EST 09/08/2024 4:32 PM EST Scott Frankel MD LAB POINT OF CARE TEST DOCKED DEVICE UNSOLICITED RESULTS Final Result Performing Organization Address [facility] Co de Phone Number [facility] [employer] [facility] [address] [place] [address] * (ABNORMAL) GLUCOSE METER, POINT OF CARE (09/08/2024 1:13 PM EST) Glucose - POCT 122(H) 70 - 120 mg/dL 09/08/2024 4:32 PM EST [facility] [employer] Blood Whole blood specimen / Unknown 09/08/2024 1:13 PM EST 09/08/2024 4:32 PM EST Scott Frankel MD LAB POINT OF CARE TEST DOCKED DEVICE UNSOLICITED RESULTS Final Result [facility] [address] [place] [address] * XR CHEST 1 VIEW (09/08/2024 12:04 [...] Degenerative osseous changes. IMPRESSION IMPRESSION Pulmonary edema. us Schuyler Waddell DO RADIOLOGY (RAD GENERAL) Final Result * PHOSPHORUS (09/08/2024 6:05 AM EST) Phosphorus 4.0 2.5 - 4.8 mg/dL 09/08/2024 6:32 AM EST [facility] Blood Venous blood specimen / Unknown Venipuncture / Unknown 09/08/2024 6:05 AM EST 09/08/2024 6:10 AM EST Alfreda INGRAMNP LAB BLOOD ORDERABLE S Final Result Performing Organization Address [facility] Co de Phone Number LABORATORY [address] [address] * MAGNESIUM (09/08/2024 6:05 AM EST) Magnesium 2.3 1.5 - 2.6 mg/dL 09/08/2024 6:32 AM EST [facility] Blood Venous blood specimen / Unknown Venipuncture / Unknown 09/08/2024 6:05 AM EST 09/08/2024 6:10 AM EST Alfreda Thakkar [facility] LAB BLOOD ORDERABLE S Final Result Performing Organization Address [facility] [place] [address] * (ABNORMAL) BASIC METABOLIC PANEL (09/08/2024 6:05 AM EST) BUN 18 6 - 20 mg/dL 09/08/2024 6:32 AM EST [facility] CREATININE 1.6(H) 0.6 - 1.2 mg/dL 09/08/2024 6:32 AM EST [facility] EGFR 42(L) >=60 mL/min 09/08/2024 6:32 AM EST [facility] Comment:eGFR is calculated b ased on the [...] 10.2 mg/dL 09/08/2024 6:32 AM EST LABORATORY [facility] Blood Venous blood specimen / Unknown Venipuncture / Unknown 09/08/2024 6:05 AM EST 09/08/2024 6:10 AM EST Alfreda DAHL LAB BLOOD ORDERABLE S Final Result LABORATORY [facility] [address] [place] [address] * (ABNORMAL) CBC (09/08/2024 6:05 AM EST) [...] 99.5 fL 09/08/2024 6:55 AM EST LAB[facility]ORY [facility] MCH 29.3 27.0 - 34.0 pg 09/08/2024 6:55 AM EST [facility] MCHC 31.3 32.0 - 36.0 g/dL 09/08/2024 6:55 AM EST LAB[facility] RDW 13.2 11.5 - 15.5 % 09/08/2024 6:55 AM EST LAB[facility] PLT 116(L) 140 - 400 K/uL 09/08/2024 6:55 AM EST [facility] MPV 11.1 6.6 - 11.1 fL 09/08/2024 6:55 AM EST [facility] nRBCs 0 <=0 /100 WBCs 09/08/2024 6:55 AM EST [facility] Blood Capillary blood specimen / Unknown Capillary / Unknown 09/08/2024 6:05 AM EST 09/08/2024 6:10 AM EST Alfreda DAHL LAB BLOOD ORDERABLE S Final Result [facility] [address] [place] [address] * EKG (09/07/2024 1:25 PM EST) 09/07/2024 [...] Present Ventricular Rate: 86 Atrial Rate: 86 CT Interval: 164 QRS Duration: 106 QT/QTc: 416/497 ms P-R-T Bartelso: 35 : -8 : 55 degrees Andre Atef Whitney DO EKG Final Result [facility] CARDIOLOGY * (ABNORMAL) TROPONIN T, HIGH SENSITIVITY (09/07/2024 5:32 AM EST) Troponin T, High Sensitivity 62(H) <=22 ng/L 09/07/2024 6:10 PM EST [facility] Blood Venous blood specimen / Unknown Venipuncture / Unknown 09/07/2024 5:32 AM EST 09/07/2024 5:53 AM EST Cathy Mcneal DO LAB BLOOD ORDERABLES Final Res ult Performing Organization Address [facility]/ZIP Co de Phone Number [facility] [address] [place] [address] * (ABNORMAL) HEMOGLOBIN A1C (09/07/2024 5:32 AM EST) Hemoglobin A1C 6.9(H) 4.0 - 5.6 % 09/07/2024 6:11 PM EST [facility] Comment:The use of HbA1c to monitor glycemic status is based on normal hemoglobin and HbA composition. This test should not be used in patients with abnormal hemoglobin that affects the half life of the red blood cell or the in vivo glycation rates. Estimated Average Glucose 151(H) <126 mg/dL 09/07/2024 6:11 PM EST [facility] Blood Venous blood specimen / Unknown Venipuncture / Unknown 09/07/2024 5:32 AM EST 09/07/2024 5:53 AM EST Cathy Drramiro LAM LAB BLOOD ORDERABLES Final Res ult Performing Organization Address [facility] Co de Phone Number [facility] [address] [place] [address] * (ABNORMAL) LIPID PANEL WITH DIRECT LDL IF TG IS HIGH (09/07/2024 5:32 AM EST) Triglycerides 99 <=174 mg/dL 09/07/2024 6:10 PM EST [facility] Comment: Triglyceride Reference Ranges (mg/dL): <150 Acceptable 150-174 Borderline high 175-499 High >=500 Very high Cholesterol 99 <200 mg/dL 09/07/2024 6:10 PM EST [facility] Comment: Total Cholesterol Reference Ranges (mg/dL): <200 Desirable 200-239 Borderline high >=240 High HDL Cholesterol 37(L) >39 mg/dL 6:10 PM EST [facility] Comment: HDL Cholesterol Reference Ranges (mg/dL): >=60 High (Desirable) <50 Low (Undesirable) For Females <40 Low (Undesirable) For Males Non-HDL Cholesterol 62 <=159 mg/dL 09/07/2024 6:10 PM EST [facility] Comment: Non-HDL Cholesterol Reference Range (mg/dL): <100 Target level for high risk ASCVD patient <130 Optimal for general population 130-159 Near optimal for general population 160-189 Borderline High 190-219 High >=220 Very High LDL Cholesterol 42 <=129 mg/dL 09/07/2024 6:10 PM EST [facility] Comment: LDL Cholesterol Reference Ranges (mg/dL): <70 Target level for high risk ASCVD patient <100 Optimal for general population 100-129 Near optimal for general population 130-159 Borderline high 160-189 High >=190 Very high Blood Venous blood specimen / Unknown Venipuncture / Unknown 09/07/2024 5:32 AM EST 09/07/2024 5:53 AM EST Cathy Mcneal DO LAB BLOOD ORDERABLES Final Res ult Performing Organization Address City/[facility]/ZIP Co de Phone Number [facility] [place] [address] [place] [address] * PHOSPHORUS (09/07/2024 5:32 AM EST) Phosphorus 3.4 2.5 - 4.8 mg/dL 09/07/2024 6:28 AM EST [facility] [place] Venous blood specimen / Unknown Venipuncture / Unknown 09/07/2024 5:32 AM EST 09/07/2024 5:53 AM EST Alfreda DA[facility] LAB BLOOD ORDERABLE S Final Result [facility] [address] [place] [address] * MAGNESIUM (09/07/2024 5:32 AM EST) Magnesium 2.4 1.5 - 2.6 mg/dL 09/07/2024 6:28 AM EST [facility] [place] Venous blood specimen / Unknown Venipuncture / Unknown 09/07/2024 5:32 AM EST 09/07/2024 5:53 AM EST Alfreda Thakkar HESHAM LAB BLOOD ORDERABLE S Final Result LABORATORY [facility] [address] [place] [address] * (ABNORMAL) BASIC METABOLIC PANEL (09/07/2024 5:32 AM EST) BUN 17 6 - 20 mg/dL 09/07/2024 [...] AM EST 09/07/2024 5:53 AM EST Alfreda Thakkar CUSTOMER ACCOUNT COORDINATOR LAB BLOOD ORDERABLE S Final Result LABORATORY [facility] [address] [place] [address] * (ABNORMAL) CBC (09/07/2024 5:32 AM EST) Pathologist [facility] WBC 10.64 4.00 - 10.80 K/uL 09/07/2024 [...] 34.0 pg 09/07/2024 6:10 AM EST [facility] MCHC 31.7 32.0 - 36.0 g/dL 09/07/2024 6:10 AM EST [facility] RDW 13.3 11.5 - 15.5 % 09/07/2024 6:10 AM EST [facility] PLT 196 140 - 400 K/uL 09/07/2024 6:10 AM EST [facility] MPV 11.1 6.6 - 11.1 fL 09/07/2024 6:10 AM EST [facility] nRBCs 0 <=0 /100 WBCs 09/07/2024 6:10 AM EST [facility] Blood Venous blood specimen / Unknown Venipuncture / Unknown 09/07/2024 5:32 AM EST 09/07/2024 5:53 AM EST us Alfreda DAHL LAB BLOOD ORDERABLE S Final Result LAB[facility]ATORY [facility] [address] [place] [address] * VASC ANKLE BRACHIAL INDICES WITHOUT PPG [...] betterappreciated on prior MRI brain dated 09/06/2024. Rapid RMS DO RAD CT Final Result * ECHO, COMPLETE (2D), TRANS-THORACIC (09/06/2024 2:10 PM EST) LEFT VENTRICULAR EJECTION FRACTION 30 % [facility] 09/06/2024 1:47 PM EST [employer] DO ECHOCARDIOLOGY Final Result [facility] * MRI BRAIN W WO CONTRAST [...] with chronic microvascular ischemic disease. Surgically replaced [place] ocular lenses. Opacification of the frontal sinus. [...] associated with chronic microvascularischemic disease. Surgically replaced [place] ocular lenses. Opacification of the frontalsinus. Trace [...] and agree with the resident/fellow physician's interpretation. Delma Romero PA-C RAD MRI-MRA Final Re sult * PHOSPHORUS (09/06/2024 6:35 AM EST) Phosphorus 3.6 2.5 - 4.8 mg/dL 09/06/2024 9:54 AM EST [facility] [place] Venous blood specimen / Unknown Venipuncture / Unknown 09/06/2024 6:35 AM EST 09/06/2024 6:52 AM EST Andre Ledezma Whitney DO LAB BLOOD ORDERABLES Final R esult [facility] [address] [place] [address] * MAGNESIUM (09/06/2024 6:35 AM EST) Magnesium 1.8 1.5 - 2.6 mg/dL 09/06/2024 9:54 AM EST [facility] [place] Venous blood specimen / Unknown Venipuncture / Unknown 09/06/2024 6:35 AM EST 09/06/2024 6:52 AM EST Andre Ateriki Whitney DO LAB BLOOD ORDERABLES Final R esult [facility] [address] [place] [address] * (ABNORMAL) BASIC METABOLIC PANEL (09/06/2024 6:35 AM EST) Pathologist [facility] BUN 19 6 - 20 mg/dL 09/06/2024 7:53 AM EST [facility] CREATININE 1.7(H) 0.6 - 1.2 mg/dL 09/06/2024 7:53 AM EST LABORATORY [facility] EGFR 39(L) >=60 mL/min 09/06/2024 7:53 AM EST [facility] Comment:eGFR is calculated b ased on the CKD-EPI 2020 equation. SODIUM 137 135 - 146 mmol/L 09/06/2024 7:53 AM EST LAB[facility]ATORY [facility] POTASSIUM 3.7 3.5 - 5.1 mmol/L 09/06/2024 7:53 AM EST LABORATORY [facility] CHLORIDE 105 98 - 107 mmol/L 09/06/2024 7:53 AM EST [facility] CO2 21(L) 22 - 32 mmol/L 09/06/2024 7:53 AM EST [facility] ANION GAP 11 7 - 15 mmol/L 09/06/2024 7:53 AM EST [facility] GLUCOSE 111 70 - 120 mg/dL 09/06/2024 7:53 AM EST LAB[facility] CALCIUM 8.1(L) 8.4 - 10.2 mg/dL 09/06/2024 7:53 AM EST [facility] Blood Venous blood specimen / Unknown Venipuncture / Unknown 09/06/2024 6:35 AM EST 09/06/2024 6:52 AM EST Alfreda Lyonkapilbrian HESHAM LAB BLOOD ORDERABLE S Final Result [facility] [address] [place] [address] * (ABNORMAL) CBC (09/06/2024 6:35 AM EST) Pathologist [facility] WBC 8.64 4.00 - 10.80 K/uL 09/06/2024 [...] 11.1 fL 09/06/2024 7:05 AM EST LAB[facility]ATORY [facility] nRBCs 0 <=0 /100 WBCs 09/06/2024 7:05 AM EST LAB[facility] Blood Venous blood specimen / Unknown Venipuncture / Unknown 09/06/2024 6:35 AM EST 09/06/2024 6:52 AM EST Alfredazari Lyonbarber DAHL LAB BLOOD ORDERABLE S Final Result LAB[facility]ATORY [facility] [address] [place] [address] * CTA HEAD/CTA NECK (09/05/2024 10:06 PM [...] the cavernous internal carotid arteries with resultant hicj-ld-klpzxive 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 5. Multiple prominent mediastinal lymph nodes, which could represent reactive lymph nodes. Narrative 09/05/2024 10:38 PM EST EXAM CTA HEAD/CTA NECK - 09/05/2024 10:06 pm HISTORY stroke COMPARISON CT HEAD_BRAIN WO CONTRAST, ACC: [id number], dated 2024-09-05 14:24:17; RADIOLOGY EXAM - CT (IMAGES ONLY, NO REPORT), ACC: [id number], dated 2024-09-05 11:06:25 TECHNIQUE Axial images obtained [...] carotid artery show atherosclerotic disease with resultant fkso-gk-ylnejtmx luminal stenosis of the right cavernous internal [...] stroke COMPARISON CT HEAD_BRAIN WO CONTRAST, ACC: [id number], dated 2024-09-05 14:24:17; RADIOLOGY EXAM - CT (IMAGES ONLY, NO REPORT), ACC: [id number], [id number] 11:06:25 TECHNIQUE Axial images obtained through the [...] internal carotid artery showatherosclerotic disease with resultant addk-dg-mhkrcfez luminal stenosisof the right cavernous internal carotid [...] involving the cavernous internal carotidarteries with resultant zree-px-tsozaawp luminal stenosis of the rightcavernous internal carotid artery and mild luminal stenosis of the leftcavernous internal carotid artery. 5. Multiple prominent mediastinal lymph nodes, which could representreactive lymph nodes. Richard Alcala MD RAD CT Final Re sult * TEG (THROMBOELASTOGRAPH), HEPARINASE (09/05/2024 2:56 PM EST) Reaction Time 6.4 2.5 - 8.3 minutes 09/05/2024 4:24 PM EST LAB[facility]ATORY [facility] Kinetics Time 1.5 0.5 - 3.7 minutes 09/05/2024 4:24 PM EST LAB[facility]ATORY [facility] Alpha Angle 69.6 46.8 - 78.4 degrees 09/05/2024 4:24 PM EST LAB[facility]ATORY [facility] Maximum Amplitude 71.5 50.6 - 72.5 mm [...] ORDERABLES Pauly l Result Performing Organization Address [facility] de Phone Number [facility] [address] [place] [address] * TEG (THROMBOELASTOGRAPH) (09/05/2024 2:56 PM EST) [...] ORDERABLES Pauly l Result Performing Organization Address [facility] de Phone Number [facility] [address] [place] [address] * RADIOLOGY EXAM - CT (IMAGES ONLY, NO REPORT) (09/05/2024 2:43 PM EST) Narrative Scheduling, Silent - 09/05/2024 2:43 PM EST This is an imaging study not interpreted or resulted by a [facility] or [facility] contracted radiologist. Philip Gabriel MD RAD CT [...] for further evaluation. A request to the corporate administrative assistant was placed 09/05/2024, 3:02 pm to notify the ordering clinician that the report is available in [facility] for review. I have personally reviewed this [...] for further evaluation. A request to the corporate administrative assistant was placed 09/05/2024, 3:02 pm tonotify the ordering clinician that the report is [facility]. I have personally reviewed this examination and [...] infarct Ventricular Rate: 71 Atrial Rate: 71 CT Interval: 174 QRS Duration: 104 QT/QTc: 434/471 ms P-R-T Bartelso: 45 : 0 : 67 degrees us Power Matthews MD EKG Final Res ult [facility] * ABO/RH (09/05/2024 2:07 PM EST) ABO O 09/05/2024 3:35 PM EST [facility] Rh Negative 09/05/2024 3:35 PM EST [facility] Blood Venous blood specimen / Unknown Venipuncture / Unknown 09/05/2024 2:07 PM EST 09/05/2024 2:16 PM EST Power Matthews MD LAB BLOOD BANK TEST ORDER MELVIN Final Result [facility] [address] [place] [address] * (ABNORMAL) DIFFERENTIAL, AUTOMATED (09/05/2024 2:07 PM [...] Power Matthews MD LAB BLOOD ORDERABLES Pauly peraza Result LAB[facility]ATORY [facility] [address] [place] [address] * (ABNORMAL) CBC (09/05/2024 2:07 PM EST) WBC 11.61(H) 4.00 [...] 34.0 pg 09/05/2024 2:39 PM EST LABORATORY [facility] MCHC 32.6 32.0 - 36.0 g/dL 09/05/2024 2:39 PM EST LAB[facility]ATORY [facility] RDW 13.0 11.5 - 15.5 % 09/05/2024 2:39 PM EST LAB[facility] PLT 191 140 - 400 K/uL 09/05/2024 2:39 PM EST LAB[facility]ORY [facility] MPV 10.7 6.6 - 11.1 fL 09/05/2024 2:39 PM EST LABORATORY [facility] nRBCs 0 <=0 /100 WBCs 09/05/2024 2:39 PM EST [facility] Blood Venous blood specimen / Unknown Venipuncture / Unknown 09/05/2024 2:07 PM EST 09/05/2024 2:16 PM EST us Power Matthews MD LAB BLOOD ORDERABLES Pauly l Result [facility] [address] [place] [address] * TYPE AND SCREEN (09/05/2024 2:07 PM EST) ABO O 09/05/2024 3:12 PM EST LABORATORY [facility] BLOOD BANK Rh Negative 09/05/2024 3:12 PM EST [facility] Red Blood Cell Antibody Screen Negative 09/05/2024 3:12 PM EST [facility] BLOOD B[facility] Specimen Expiration Date 09/08/2024 23:59 09/05/2024 3:12 PM EST [facility] Blood Venous blood specimen / Unknown Venipuncture / Unknown 09/05/2024 2:07 PM EST 09/05/2024 2:16 PM EST Power Matthews MD LAB BLOOD BANK TEST ORDER MELVIN Final Result Performing Organization Address [facility] de Phone Number [facility] [address] [place] [address] * PT INR (09/05/2024 2:07 PM EST) Prothrombin Time 14.3 11.6 - 15.2 seconds 09/05/2024 2:33 PM EST [facility] INR 1.1 0.8 - 1.2 09/05/2024 2:33 PM EST [facility] Blood Venous blood specimen / Unknown Venipuncture / Unknown 09/05/2024 2:07 PM EST 09/05/2024 2:16 PM EST Narrative [facility] - 09/05/2024 2:33 PM EST Warfarin Therapy INR: 2.0-3.0 conventional anticoagulation INR: 2.5-3.5 high intensity anticoagulation Power Matthews MD LAB BLOOD ORDERABLES Pauly l Result Performing Organization Address [facility] de Phone Number [facility] [address] [place] [address] * APTT (09/05/2024 2:07 PM EST) aPTT 30 21 - 38 seconds 09/05/2024 2:34 PM EST [facility] Blood Venous blood specimen / Unknown Venipuncture / Unknown 09/05/2024 2:07 PM EST 09/05/2024 2:16 PM EST Narrative [facility] - 09/05/2024 2:34 PM EST Anticoagulation may affect testing. Refer to [employer] Test Catalog for a list of effects. Power Matthews MD LAB BLOOD ORDERABLES Pauly l Result Performing Organization Address [facility] Co de Phone Number [facility] [address] [place] [address] * HEPATIC FUNCTION PANEL (09/05/2024 2:07 PM EST) Albumin 4.1 3.8 - 5.0 g/dL 09/05/2024 3:00 PM EST [facility] AST 17 10 - 50 U/L 09/05/2024 3:00 PM EST LABORATORY C Comment:Results may be false ly elevated due to hemolysis. Alkaline Phosphatase 85 35 - 130 U/L 09/05/2024 3:00 PM EST LABORATORY C ALT 15 10 - 50 U/L 09/05/2024 3:00 PM EST LABORATORY C Bilirubin, Total 0.6 <=1.2 mg/dL 09/05/2024 3:00 PM EST LABORATORY C Bilirubin, Direct 0.2 0.0 - 0.3 mg/dL 09/05/2024 3:00 PM EST LABORATORY C Comment:Result may be falsel y decreased due to hemolysis. Protein 6.8 6.0 - 8.3 g/dL 09/05/2024 3:00 PM EST [facility] Blood Venous blood specimen / Unknown Venipuncture / Unknown 09/05/2024 2:07 PM EST 09/05/2024 2:16 PM EST Power Matthews MD LAB BLOOD ORDERABLES Pauly l Result Performing Organization Address City/[facility] Co de Phone Number [facility] [address] [place] [address] * CALCIUM, IONIZED, WHOLE BLOOD (09/05/2024 2:07 PM EST) Calcium, Ionized 1.14 1.13 - 1.32 mmol/L 09/05/2024 2:20 PM EST LAB[facility]ATORY [facility] Blood Venous blood specimen / Unknown Venipuncture / Unknown 09/05/2024 2:07 PM EST 09/05/2024 2:15 PM EST Power Matthews MD LAB BLOOD ORDERABLES Pauly l Result Performing Organization Address [facility] Co de Phone Number [facility] [address] [place] [address] * MAGNESIUM (09/05/2024 2:07 PM EST) Magnesium 1.9 1.5 - 2.6 mg/dL 09/05/2024 3:00 PM EST [facility] Blood Venous blood specimen / Unknown Venipuncture / Unknown 09/05/2024 2:07 PM EST 09/05/2024 2:16 PM EST Power Matthews MD LAB BLOOD ORDERABLES Pauly l Result Performing Organization Address [facility] Phone Number [facility] [address] [place] [address] * PHOSPHORUS (09/05/2024 2:07 PM EST) Phosphorus 3.3 2.5 - 4.8 mg/dL 09/05/2024 3:00 PM EST [facility] Blood Venous blood specimen / Unknown Venipuncture / Unknown 09/05/2024 2:07 PM EST 09/05/2024 2:16 PM EST Power Matthews MD LAB BLOOD ORDERABLES Pauly l Result Performing Organization Address [facility] Co de Phone Number [facility] [address] [place] [address] * (ABNORMAL) BASIC METABOLIC PANEL (09/05/2024 2:07 PM EST) BUN 20 6 - 20 mg/dL 09/05/2024 3:00 PM EST [facility] CREATININE 1.7(H) 0.6 - 1.2 mg/dL 09/05/2024 3:00 PM EST [facility] EGFR 39(L) >=60 mL/min 09/05/2024 3:00 PM [...] LAB BLOOD ORDERABLES Pauly l Result LABORATORY [place] [address] [place] [address] * MRSA SCREEN, PCR (09/05/2024 1:57 PM EST) [facility] MRSA PCR Result Negative Negative 3:25 PM EST LABORATORY [facility] Comment:No Methicillin resis tant Staphylococcus aureus detected by PCR (amplified probe). Upper Respiratory Swab of internal nose / Unknown Non-blood Collection / Unknown 09/05/2024 1:57 PM EST 09/05/2024 2:07 PM EST Power Matthews MD LAB MICRO - GENERAL ORDER MELVIN Final Result Performing Organization Address City/[facility]/ZIP Co de Phone Number [facility] [address] [place] [address] documented in this encounter Visit Diagnoses Diagnosis [...] classified documented in this encounter Administered Medications Active Administered Medications - up to 3 most recent administrations Medication Order MAR Action Action Date Dose Rate Site Acetaminophen (Tylenol) tab 650 mg 650 mg, Oral, Q6H PRN Fever >38C(100.5F), Starting on Thu09/11/24 at 0405, Until Discontinued, Maximum of 4 grams (4000 mg) per day. Given 09/16/2024 8:06 PM EST 650 mg Given 09/12/2024 12:46 AM EST 650 mg Given 09/11/2024 4:22 AM EST 650 mg albuterol-ipratropium (Duoneb) inhalation solution 3 mL 3 mL, Nebulizer, Q4H PRN Dyspnea, Starting on Thu09/07/24 at 1457, Until Discontinued, 3 mL = 0.5 mg ipratropium/ 2.5 mg albuterol Given 09/11/2024 11:28 PM EST 3 mL Given 09/08/2024 11:29 AM EST 3 mL Given 09/07/2024 3:02 PM EST 3 mL aspirin chew tab 81 mg 81 mg, Oral, Daily(AM), First dose (after last modification) on Thu09/19/24 at 0900, Until Discontinued Given 09/20/2024 9:51 AM EST 81 mg Given 09/19/2024 9:02 AM EST 81 mg Benzonatate (Tessalon Perles) cap 100 mg 100 mg, Oral, Q8H PRN Cough, Starting on Thu09/07/24 at 1307, Until Discontinued, This med should NOT be Crushed or Chewed Given 09/11/2024 8:34 PM EST 100 mg Given 09/11/2024 8:47 AM EST 100 mg cycloSPORINE (Restasis) 0.05 % ophthalmic emulsion 1 Drop 1 Drop, Both eyes, BID (.AM/PM), First dose on Thu09/06/24 at 2100, Until Discontinued Given 09/20/2024 7:52 PM EST 1 Drop Given 09/20/2024 9:00 AM EST 1 Drop Given 09/19/2024 9:36 PM EST 1 Drop dextrose 50% inj 25 mL 25 mL, IV Push, PRN Hypoglycemia, Other, For blood glucose 54 - 69 mg/dL or 70 - 100 mg/dL with symptoms AND patient is unresponsive, NPO, OR unable to swallow, Starting on Thu09/08/24 at 1002, Until Discontinued, Administer IV. Recheck blood glucose after 15 minutes. Notify provider. dextrose 50% inj 50 mL 50 mL, IV Push, PRN Hypoglycemia, Other, For blood glucose below 54 mg/dL AND patient unresponsive, NPO, OR unable to swallow, Starting on Thu09/08/24 at 1002, Until Discontinued, Administer IV. Recheck blood glucose in 15 minutes. Notify provider. Digoxin (Lanoxin) tab 125 mcg 125 mcg, Oral, Daily(AM), First dose on Thu09/16/24 at 1415, Until Discontinued, Hold For HR Less than 60 and notify service if dose is held Given 09/20/2024 9:51 AM EST 125 mcg Given 09/19/2024 9:02 AM EST 125 mcg Given 09/18/2024 9:20 AM EST 125 mcg Divalproex (Depakote Sprinkle) delayed release capsule 125 mg 125 mg, Oral, Q8H PRN Other, agitation, Starting on Thu09/14/24 at 1232, Until Discontinued, Swallow the capsule or tablet whole. Do [...] Daily(AM), First dose (after last modification) on 09/17/24 at 0900, Until Discontinued Given 09/20/2024 9:51 AM EST 100 mg Given 09/19/2024 9:03 AM EST 100 mg Given 09/18/2024 9:25 AM EST 100 mg dorzolamide (Trusopt Ocumeter Plus) 2 % ophthalmic solution 1 Drop 1 Drop, Both eyes, BID (.AM/PM), First dose on Thu09/07/24 at 2100, Until Discontinued Given 09/20/2024 9:51 AM EST 1 Drop Given 09/19/2024 9:37 PM EST 1 Drop Given 09/19/2024 9:07 AM EST 1 Drop Finasteride (Proscar) tab 5 mg 5 mg, Oral, Daily(AM), First dose on 09/10/24 at 1315, Until Discontinued Given 09/20/2024 9:51 AM EST 5 mg Given 09/19/2024 9:02 AM EST 5 mg Given 09/18/2024 9:21 AM EST 5 mg Furosemide (Lasix) tab 40 mg 40 mg, Oral, Daily(AM), First dose on Thu09/16/24 at 0900, Until Discontinued Given 09/20/2024 9:51 AM EST 40 mg Given 09/19/2024 9:02 AM EST 40 mg Given 09/18/2024 9:21 AM EST 40 mg glucagon (Glucagen) inj 1 mg 1 mg, Intramuscular, PRN Hypoglycemia, Other, If patient is unresponsive, or NPO and has no IV access, Starting on Ca 09/08/24 at 1002, Until Discontinued, NPO and no IV access with either [...] chewing/swallowing, Starting on Thu09/08/24 at 1002, Until Discontinued, Administer gel. Recheck blood glucose after 15 minutes. Notify provider. 37.5 gram tube = 15 grams glucose = 1 each Glucose (Glutose 15) 40 % gel 30 g of glucose 30 g of glucose, Oral, PRN Hypoglycemia (low sugar), Other, For blood glucose below 54 mg/dL AND patient alert WITH difficulty chewing/swallowing, Starting on Thu09/08/24 at 1002, Until Discontinued, Administer gel. Recheck blood glucose after 15 minutes. Notify provider. 37.5 gram tube = 15 grams glucose = 1 each glucose chew tab 16 g 16 g, Oral, PRN Hypoglycemia, Other, For blood glucose 54 - 69 mg/dL or 70 - 100 mg/dL with symptoms and patient alert without difficulty chewing/swallowing., Starting on Thu09/08/24 at 1002, Until Discontinued Haloperidol Lactate (Haldol) 5 MG/ML inj 1 mg 1 mg, IV Push, Q8H PRN Agitation, Starting on Thu09/14/24 at 1211, Until Discontinued Given 09/18/2024 9:24 PM EST 1 mg Given 09/17/2024 10:16 PM EST 1 mg Given 09/17/2024 3:29 AM EST 1 mg hEParin inj 5,000 Units 5,000 Units, Subcutaneous, Q8H, First dose (after last modification) on 09/17/24 at 2100, Until Discontinued Given 09/20/2024 7:51 PM EST 5,000 Units Abdomen Right Lower Given 09/20/2024 2:00 PM EST 5,000 Units A bdomen Left Upper Given 09/20/2024 6:54 AM EST 5,000 Units A bdomen Right Upper insulin aspart (NovoLOG) inj Subcutaneous, W/MEALS [...] EST 2 Units Ab domen Left Lower labetalol (Trandate) inj 10 mg 10 mg, Intravenous, Q1H PRN Hypertension, SBP >160, Starting on Thu09/07/24 at 1815, Until Discontinued Given 09/18/2024 3:11 AM EST 10 mg Given 09/16/2024 8:52 AM EST 10 mg Given 09/15/2024 10:16 PM EST 10 mg Lisinopril (Prinivil) tab 10 mg 10 mg, Oral, Daily(AM), First dose (after last modification) on Thu09/12/24 at 0900, Until Discontinued Given 09/20/2024 9:51 AM EST 10 mg Given 09/19/2024 9:02 AM EST 10 mg Given 09/18/2024 9:21 AM EST 10 mg melatonin tab 9 mg 9 mg, [...] should NOT be Crushed or Chewed. Given 09/20/2024 9:51 AM EST 100 mg Given 09/19/2024 9:03 AM EST 100 mg Given 09/18/2024 9:21 AM EST 100 mg Metoprolol Tartrate (Lopressor) inj 5 mg 5 mg, IV Push, Q6H PRN Other, HR greater than 140, Starting on Thu09/13/24 at 2334, Until Discontinued Given 09/15/2024 10:21 AM EST 5 mg Given 09/14/2024 4:23 PM EST 5 mg OLANZapine (zyPREXA IM) inj 5 mg 5 mg, Intramuscular, Q8H PRN Agitation, Starting on Thu09/14/24 at 1211, Until Discontinued, Upon reconstitution with 2.1 mL of Sterile Water for Injection, each mL will contain 5 mg of olanzapine. Expires 1 hour after mixing. Given 09/20/2024 9:39 PM EST 5 mg Arm L eft Upper Given 09/18/2024 12:27 AM EST 5 mg A rm Right Upper Given 09/17/2024 5:24 AM EST 5 mg Ar m Left Upper oxygen GAS Inhalation, OXYGEN, First dose on Ca 09/08/24 [...] (1 Packet), Oral, Daily(AM), First dose on [facility] 09/10/24 at 0900, Until Discontinued, Mix in 8 oz of water, juice, soda, coffee, or tea. Given 09/20/2024 9:51 AM EST 17 g Given 09/18/2024 9:20 AM EST 17 g Given 09/17/2024 9:39 AM EST 17 g polyvinyl alcohol-povidone PF (Refresh) ophthalmic solution 1 Drop 1 Drop, Both eyes, DAILY(1900), First dose on Thu09/06/24 at 1900, Until Discontinued Given 09/20/2024 5:[address] murphy Given 09/19/2024 6:58 PM EST 1 Drop Given 09/18/2024 6:35 PM EST 1 Drop QUEtiapine (SEROquel) tab 100 mg 100 mg, Oral, QHS, First dose (after last modification) on 09/18/24 at 2100, Until Discontinued Given 09/20/2024 7:52 PM EST 100 mg Given 09/19/2024 9:33 PM EST 100 mg Given 09/18/2024 8:19 PM EST 100 mg senna (Senokot) 1 Tablet 1 Tablet, Oral, Daily(AM), First dose on 09/10/24 at 0900, Until Discontinued Given 09/20/2024 9:51 AM EST 1 Ta blet Given 09/19/2024 9:02 AM EST 1 Tablet Given 09/18/2024 9:21 AM EST 1 Tablet sodium bicarbonate tab 650 mg 650 mg, Oral, TID(AM/NOON/HS), First dose (after last modification) on 09/17/24 at 2100, Until Discontinued Given 09/20/2024 7:51 PM EST 650 mg Given 09/20/2024 12:22 PM EST 650 mg Given 09/20/2024 6:55 AM EST 650 mg sodium chloride 0.9 % [...] Ca 09/15/24 at 0900, Until Discontinued Given 09/20/2024 9:51 AM EST 25 mg Given 09/19/2024 9:03 AM EST 25 mg Given 09/18/2024 9:21 AM EST 25 mg tamsulosin (Flomax) cap 0.4 mg 0.4 mg, Oral, Daily(AM), First dose on Thu09/11/24 at 1030, Until Discontinued, Administer 30 min after meal. This med should NOT be Crushed or Chewed or opened! ORAL administration only!! Given 09/20/2024 9:51 AM EST 0.4 mg Given 09/19/2024 9:03 AM EST 0.4 mg Given 09/18/2024 9:21 AM EST 0.4 mg traZODone (Desyrel) tab 12.5 mg 12.5 mg, Oral, BID (.AM/PM), First dose (after last modification) on Thu09/18/24 at 1145, Until Discontinued Given 09/20/2024 12:22 PM EST 12.5 mg Given 09/20/2024 6:54 AM EST 12.5 mg Given 09/19/2024 5:53 AM EST 12.5 mg traZODone (Desyrel) tab 25 mg 25 mg, Oral, QHS, First dose on Thu09/18/24 at 2100, Until Discontinued Given 09/20/2024 7:51 PM EST 25 mg Given 09/19/2024 9:36 PM EST 25 mg Given 09/18/2024 8:17 PM EST 25 mg Inactive Administered Medications - up to 3 [...] 9:17 PM EST 1,000 mg 400 mL/hr amLODIPine (Norvasc) tab 5 mg 5 mg, [...] Given 09/16/2024 8:34 AM EST 81 mg atorvaSTATin (Lipitor) tab 40 mg 40 mg, Oral, Q1700, First dose on Thu09/07/24 at 1700, Until Discontinued Given 09/07/2024 3:53 PM EST 40 mg chlorHEXIDINE (Periogard) 0.12 % oral rinse 15 mL 15 mL, Oral mucosal membrane, BID (0800,1999), First dose on Thu09/05/24 at 2000, Until [...] Given 09/12/2024 8:45 AM EST 10 mg dexmedeTOMIDine (Precedex) 400 mcg in 100 mL [...] AM EST 0.6 mcg/kg/hr 14.43 mL/ hr Digoxin (Lanoxin) 0.25 MG/ML inj 250 mcg [...] Given 09/15/2024 1:02 PM EST 500 mcg dilTIAZem (Cardizem) immediate release tab 30 mg 30 mg, Oral, Q6H, First dose on 09/10/24 at 1800, Until Discontinued, Hold for HR [...] Given 09/12/2024 12:46 AM EST 60 mg Docusate Sodium (Colace) oral liquid 100 mg 100 mg, Oral, BID (.AM/PM), First dose on Thu09/09/24 at 2100, Until Discontinued Given 09/16/2024 8:33 AM EST 100 mg Given 09/15/2024 10:08 PM EST 100 mg Given 09/15/2024 9:58 AM EST 100 mg Famotidine (Pepcid) inj 20 mg 20 [...] Given 09/07/2024 2:38 PM EST 5 mg Furosemide (Lasix) inj 20 mg 20 mg, IV Push, ONCE, On 09/12/24 at 0000, For 1 dose Given 09/11/2024 [...] Given 09/13/2024 5:05 PM EST 40 mg gadobutrol (Gadavist) inj 9.8 mL 9.8 mL (rounded from 9.78 mL = 0.1 mL/kg 97.8 kg), Intravenous, ONCE, On Thu09/06/24 at 1045, For 1 dose, Radiology Medication Routing (Non-IR) Given 09/06/2024 10:45 AM EST 9.8 mL Haloperidol Lactate (Haldol) 5 MG/ML inj 5 [...] PM EST 5,000 Units Abdomen Left Lower insulin aspart (NovoLOG) inj Subcutaneous, W/MEALS AND HS, First dose on Thu09/08/24 at 1200, Until Discontinued, MEDIUM DOSE (Usual [...] PM EST 2 Units Deltoid Left Lower Iopamidol (Isovue 370) inj 65 [...] 10 mg 10 mg, Intravenous, ONCE, On 09/10/24 at 0330, For 1 dose Given 09/10/2024 2:58 AM EST 10 mg levETIRAcetam (Keppra) 500 mg in 100 mL ivpb *LOCKED DOSE* 500 mg, IV Piggyback, BID (.AM/PM), First dose on Thu09/06/24 at 0900, Until Discontinued, at 600 mL/hr Administer over 10 Minutes Restarted 09/07/2024 12:00 PM EST 3,000 mg/hr 600 mL/hr New Bag 09/07/2024 9:45 AM EST 500 mg 600 mL/hr New Bag 09/06/2024 9:30 PM EST 500 mg 600 mL/hr levETIRAcetam (Keppra) 500 mg in 100 mL ivpb *LOCKED DOSE* 500 mg, IV Piggyback, BID (.AM/PM), First dose on Thu09/07/24 at 2100, Until Discontinued, at 600 mL/hr Administer over 10 Minutes New Bag 09/09/2024 8:30 AM EST 500 mg 600 mL/hr New Bag 09/08/2024 9:40 PM EST 500 mg 600 mL/hr New Bag 09/08/2024 8:01 AM EST 500 mg 600 mL/hr levETIRAcetam (Keppra) 500 mg in 100 mL ivpb *LOCKED DOSE* 500 mg, IV Piggyback, BID (.AM/PM), First dose on Thu09/09/24 at 2100, Until Discontinued, at 600 mL/hr Administer over 10 Minutes New Bag 09/10/2024 8:19 PM EST 500 mg 600 mL/hr New 09/10/2024 9:19 AM EST 500 mg 600 mL/hr 09/09/2024 7:44 PM EST 500 mg 600 mL/hr levETIRAcetam (Keppra) tab 500 mg 500 mg, Oral, BID (.AM/PM), First dose on Thu09/11/24 at 0900, Until Discontinued Given 09/11/2024 8:03 AM EST 500 mg Lisinopril (Prinivil) tab 5 mg 5 mg, Oral, Daily(AM), First dose on Thu09/10/24 at 1315, Until Discontinued Given 09/11/2024 8:03 [...] Piggyback, Q1H, 2 doses, First dose on 09/11/24 at 1100, Last dose on Thu09/11/24 at [...] Piggyback, Q1H, 2 doses, First dose on Thu09/17/24 at 1600, Last dose on Thu09/17/24 at 1700, Administer over 60 Minutes, Total dose is 2g Rate Verify 09/17/2024 4:34 PM EST 1 g/hr 100 mL/hr Restarted 09/17/2024 4:33 PM EST 1 g/hr 100 mL/hr New Bag 09/17/2024 4:05 PM EST 1 g 100 mL/hr magnesium sulfate 1 g in d5w 100mL LOCKED DOSE 1 g, IV Piggyback, Q1H, 1 dose, First dose (after last reorder) on Thu09/17/24 at 1700, Administer over 60 Minutes, Total [...] Given 09/17/2024 8:38 PM EST 6 mg metoprolol succinate XL (toPROL XL) tab [...] AM EST 5 mg Arm Right Upper Oral Hygiene: Mouth Swab with dentifrice Oral, Q4H LIMITED (00;04;12;16), First dose on Thu09/05/24 at 1600, Until Discontinued, To be used with 1.5% hydrogen peroxide solution or 0.05% cetylpyridium chloride oral rinse Given 09/11/2024 4:00 PM EST Given 09/11/2024 12:00 PM EST Given 09/11/2024 4:00 AM EST oxygen GAS Inhalation, OXYGEN, First dose on Thu09/05/24 at 1600, Until Discontinued, Device/Managed by: Low [...] EST Oxygen On 09/10/2024 8:00 AM EST Potassium Bicarbonate (Klor-Con/Ef) eff tab TBEF 50 mEq 50 mEq, Oral, ONCE, On Thu09/14/24 at 0815, For 1 dose, Dissolve tablet in at least 4 ounces of water prior to administering. Given 09/14/2024 8:49 AM EST 50 mEq potassium chloride 10 mEq in 100 mL ivpb LOCKED DOSE 10 mEq, Peripheral IV, Q1H, 3 doses, First dose on 09/10/24 at 0800, Last dose on Thu09/10/24 at 1000, Administer over 60 Minutes, Standard infusion duration is 60 minutes. Rate Verify 09/10/2024 12:18 PM EST 10 mEq/hr 100 mL/hr New Bag 09/10/2024 11:41 AM EST 10 mEq 100 mL/hr Rate Verify 09/10/2024 10:59 AM EST 10 mEq/hr 100 mL/hr potassium chloride ER tab 20 mEq 20 mEq, Oral, ONCE, On 09/11/24 at 1030, For 1 dose, This med [...] mmol, Peripheral IV, ONCE, 1 dose, On Thu09/17/24 at 1515 New Bag 09/17/2024 7:02 PM EST 30 mmol 53 mL/hr QUEtiapine (SEROquel) tab 12.5 mg 12.5 mg, [...] Given 09/08/2024 4:08 PM EST 0.5 mg sodium bicarbonate tab 325 mg 325 mg, [...] Given 09/16/2024 9:46 PM EST 650 mg traZODone (Desyrel) tab 12.5 mg 12.5 [...] Given 09/17/2024 8:38 PM EST 12.5 mg Valproate Sodium (Depacon) 250 mg in NSS 50 mL ivpb 250 mg, IV Piggyback, BID (.AM/PM), First dose (after last modification) on Thu09/08/24 at 1815, Until Discontinued New Bag 09/10/2024 9:25 AM EST 250 mg 54.5 m L/hr Rate Verify 09/09/2024 9:00 AM EST 250 mg/hr 54 mL/hr New Bag 09/09/2024 8:29 AM EST 250 mg 54.5 mL/hr Valproate Sodium (Depacon) 250 mg in NSS 50 mL ivpb 250 mg, IV Piggyback, Q12H PRN Agitation, Starting on Thu09/08/24 at 1807, Until Thu09/11/24 at 1304 Rate Verify 09/09/2024 8:00 PM EST 54.5 mL/hr New Bag 09/09/2024 7:48 PM EST 250 mg 54.5 mL/hr Valproate Sodium (Depacon) 250 mg in NSS 50 mL ivpb 250 mg, IV Piggyback, Q6H, First dose (after last modification) on Thu09/10/24 at 1800, Until Discontinued New Bag 09/12/2024 [...] 950 (Given - Provider: Jillian Merida RN) 00 (Due) cycloSPORINE (Restasis) 0.05 % ophthalmic emulsion 1 Drop 1 Drop, Both eyes, BID (.AM/PM), First dose on Thu09/06/24 at 2100, Until Discontinued 906 (Given - Provider: Melissa Islas RN)2135 (Given - Provider: Waqas Castillo RN) 09 (Given - Provider: Jillian Merida RN)1951 (Given - Provider: Blayne Mcfadden RN) 0900 (Due)2099 (Due) Digoxin (Lanoxin) tab 125 mcg 125 mcg, Oral, Daily(AM), First dose on Thu09/16/24 at 1415, Until Discontinued, Hold For HR Less than 60 and notify service if dose is held 09 (Given - Provider: Melissa Islas RN) 950 (Given - Provider: Jillian Merida RN) 0900 (Due) Docusate Sodium (Colace) oral liquid 100 mg 100 mg, Oral, Daily(AM), First dose (after last modification) on Thu09/17/24 at 0900, Until Discontinued 09 (Given - Provider: Melissa Islas RN) 0951 (Given - Provider: Jillian Merida RN) 09 (Due) dorzolamide (Trusopt Ocumeter Plus) 2 % ophthalmic solution 1 Drop 1 Drop, Both eyes, BID (.AM/PM), First dose on Thu09/07/24 at 2100, Until Discontinued 09 (Given - Provider: Melissa Islas RN)2136 (Given - Provider: Waqas Castillo, [place]) 51 (Given - Provider: Jillian Merida, [place])2100 (Not Given - Provider: Blayne Mcfadden, [place] - Reason: Refused-Notify Provider) 09 (Due)2099 (Due) Finasteride (Proscar) tab 5 mg 5 mg, Oral, Daily(AM), First dose on Thu09/10/24 at 1315, Until Discontinued 09 (Given - Provider: Melissa Islas RN) 950 (Given - Provider: Jillian Merida RN) 899 (Due) Furosemide (Lasix) tab 40 mg 40 mg, Oral, Daily(AM), First dose on Thu09/16/24 at 0900, Until Discontinued 09 (Given - Provider: Melissa Islas RN) 0951 (Given - Provider: Jillian Merida RN) 09 (Due) hEParin inj 5,000 Units 5,000 Units, Subcutaneous, Q8H, First dose (after last modification) on Thu09/17/24 at 2100, Until Discontinued 0553 (Given - Provider: Brock Walsh RN)1417 (Given - Provider: Melissa Islas RN)2132 (Given - Provider: Waqas Castillo, [place]) 0654 (Given - Provider: Cee Lott LPN)1400 (Given - Provider: Jillian Merida RN)1950 (Given - Provider: Blayne Mcfadden, [place]) 0600 (Due)1400 (Due)2100 (Due) insulin aspart (NovoLOG) inj Subcutaneous, W/MEALS AND [...] Jillian Merida RN)1735 (Given - Provider: Jillian Merida RN)2200 (Not Given - Provider: Blayen Mcfadden RN - Reason: Refused-Notify Provider) 0800 (Due)1200 (Due)1700 (Due)2200 (Due) Lisinopril (Prinivil) tab 10 mg 10 mg, Oral, Daily(AM), First dose (after last modification) on Thu09/12/24 at 0900, Until Discontinued 0902 (Given - Provider: Melissa Islas RN) 0951 (Given - Provider: Jillian Merida RN) 0900 (Due) magnesium sulfate 1 g in d5w 100mL [...] 1950 (Given - Provider: Blayne Mcfadden, [place]) 2100 (Due) metoprolol succinate XL (toPROL XL) tab 100 mg 100 mg, Oral, Daily(AM), First dose (after last modification) on Thu09/16/24 at 0900, Until Discontinued, Hold for HR less than 60 or SBP below 100 and notify service if dose is held This med should NOT be Crushed or Chewed. 0903 (Given - Provider: Melissa Islas RN) 0951 (Given - Provider: Jillian Merida RN) 0900 (Due) oxygen GAS(Linked Group 1) Inhalation, OXYGEN, First dose on Thu09/08/24 at [...] (Oxygen Off - Provider: Blayne Mcfadden, [place])0800 (Due)1600 (Due) Polyethylene Glycol 3350 (Miralax) oral powder 17 g 17 g (1 Packet), Oral, Daily(AM), First dose on Thu09/10/24 at 0900, Until Discontinued, Mix in 8 oz of water, juice, soda, coffee, or tea. 0900 (Not Given - Provider: Melissa Islas RN - Reason: Other- Please add reason in Comments - Comment: pt having large BMs) 0951 (Given - Provider: Jillian Merida RN) 0900 (Due) polyvinyl alcohol-povidone PF (Refresh) ophthalmic solution 1 Drop 1 Drop, Both eyes, DAILY(1900), First dose on Thu09/06/24 at 1900, Until Discontinued 1858 (Given - Provider: Melissa Islas RN) 1736 (Given - Provider: Jillian Merida, RN) 1900 (Due) QUEtiapine (SEROquel) tab 100 mg 100 mg, Oral, QHS, First dose (after last modification) on Thu09/18/24 at 2100, Until Discontinued 2132 (Given - Provider: Waqas Castillo RN) 1951 (Given - Provider: Blayne Mcfadden, [place]) 2100 (Due) senna (Senokot) 1 Tablet 1 Tablet, Oral, Daily(AM), First dose on 09/10/24 at 0900, Until Discontinued 0902 (Given - Provider: Melissa Islas RN) 0951 (Given - Provider: Jillian Merida RN) 0900 (Due) sodium bicarbonate tab 650 mg 650 mg, Oral, TID(AM/NOON/HS), First dose (after last modification) on Thu09/17/24 at 2100, Until Discontinued 0552 (Given - Provider: Brock Walsh RN)1206 (Given - Provider: Melissa Islas RN)2132 (Given - Provider: Waqas Castillo RN) 0655 (Given - Provider: Cee Lott LPN)1222 (Given - Provider: Jillian Merida RN)1950 (Given - Provider: Blayne Mcfadden RN) 0600 (Due)1200 (Due)2100 (Due) sodium chloride 0.9 % flush peripheral lucy 3 mL 3 mL, IV Push, Q8H, First dose on Thu09/05/24 at 1430, Until Discontinued, Do not flush if lock, PICC, or central line not in place; IV infusing or unable to flush. 0600 (Given - Provider: Brock Walsh RN)1400 (Given - Provider: Melissa Islas RN)2133 (Given - Provider: Waqas Castillo RN) 0600 (Given - Provider: Cee Lott LPN)1400 (Given - Provider: Jillian Merida RN)2200 (Not Given - Provider: Blayne Mcfadden RN - Reason: Parameter(s) Not Met) 0600 (Due)1400 (Due)2200 (Due) Spironolactone (Aldactone) tab 25 mg 25 mg, Oral, Daily(AM), First dose on Ca 09/15/24 at 0900, Until Discontinued 0903 (Given - Provider: Melissa Islas RN) 0951 (Given - Provider: Jillian Merida RN) 0900 (Due) tamsulosin (Flomax) cap 0.4 mg 0.4 mg, Oral, Daily(AM), First dose on 09/11/24 at 1030, Until Discontinued, Administer 30 min after meal. This med should NOT be Crushed or Chewed or opened! ORAL administration only!! 09 (Given - Provider: Melissa Islas RN) 0951 (Given - Provider: Jillian Merida, RN) 0900 (Due) traZODone (Desyrel) tab 12.5 mg 12.5 mg, Oral, BID (.AM/PM), First dose (after last modification) on 09/18/24 at 1145, Until Discontinued 0553 (Given - Provider: Brock Walsh RN)1200 (Not Given - Provider: Melissa Islas RN - Reason: Other- Please add reason in Comments - Comment: okay to hold per Dr. Valentino due to pt being drowsy) 0654 (Given - Provider: Cee Lott LPN)1222 (Given - Provider: Jillian Merida RN) 0600 (Due)1200 (Due) traZODone (Desyrel) tab 25 mg 25 mg, Oral, QHS, First dose on 09/18/24 at 2100, Until Discontinued 2135 (Given - Provider: Waqas Castillo RN) 1950 (Given - Provider: Blayne Mcfadden RN) 2100 (Due) PRN Medication Order 09/19/2024 09/20/2024 09/21/2024 Acetaminophen (Tylenol) tab 650 mg 650 mg, Oral, Q6H PRN Fever >38C(100.5F), Starting on 09/11/24 at 0405, Until Discontinued, Maximum of 4 grams (4000 mg) per day. albuterol-ipratropium (Duoneb) inhalation solution 3 mL 3 mL, Nebulizer, Q4H PRN Dyspnea, Starting on Thu09/07/24 at 1457, Until Discontinued, 3 mL = 0.5 mg ipratropium/ 2.5 mg albuterol Benzonatate (Tessalon Perles) cap 100 mg 100 mg, Oral, Q8H PRN Cough, Starting on Thu09/07/24 at 1307, Until Discontinued, This med should NOT be Crushed or Chewed dextrose 50% inj 25 mL 25 mL, IV Push, PRN Hypoglycemia, Other, For blood glucose 54 - 69 mg/dL or 70 - 100 mg/dL with symptoms AND patient is unresponsive, NPO, OR unable to swallow, Starting on Thu09/08/24 at 1002, Until Discontinued, Administer IV. Recheck blood glucose after 15 minutes. Notify provider. dextrose 50% inj 50 mL 50 mL, IV Push, PRN Hypoglycemia, Other, For blood glucose below 54 mg/dL AND patient unresponsive, NPO, OR unable to swallow, Starting on Thu09/08/24 at 1002, Until Discontinued, Administer IV. Recheck blood glucose in 15 minutes. Notify provider. Divalproex (Depakote Sprinkle) delayed release capsule 125 mg 125 mg, Oral, Q8H PRN Other, agitation, Starting on Thu09/14/24 at 1232, Until Discontinued, Swallow the capsule or tablet whole. Do [...] access, Starting on Thu09/08/24 at 1002, Until Discontinued, NPO and no IV access with either [...] chewing/swallowing, Starting on Thu09/08/24 at 1002, Until Discontinued, Administer gel. Recheck blood glucose after 15 minutes. Notify provider. 37.5 gram tube = 15 grams glucose = 1 each Glucose (Glutose 15) 40 % gel 30 g of glucose 30 g of glucose, Oral, PRN Hypoglycemia (low sugar), Other, For blood glucose below 54 mg/dL AND patient alert WITH difficulty chewing/swallowing, Starting on Thu09/08/24 at 1002, Until Discontinued, Administer gel. Recheck blood glucose after 15 minutes. Notify provider. 37.5 gram tube = 15 grams glucose = 1 each glucose chew tab 16 g 16 g, Oral, PRN Hypoglycemia, Other, For blood glucose 54 - 69 mg/dL or 70 - 100 mg/dL with symptoms and patient alert without difficulty chewing/swallowing., Starting on Thu09/08/24 at 1002, Until Discontinued Haloperidol Lactate (Haldol) 5 MG/ML inj 1 mg 1 mg, IV Push, Q8H PRN Agitation, Starting on Thu09/14/24 at 1211, Until Discontinued labetalol (Trandate) inj 10 mg 10 mg, Intravenous, Q1H PRN Hypertension, SBP >160, Starting on Thu09/07/24 at 1815, Until Discontinued Metoprolol Tartrate (Lopressor) inj 5 mg 5 mg, IV Push, Q6H PRN Other, HR greater than 140, Starting on Thu09/13/24 at 2334, Until Discontinued OLANZapine (zyPREXA IM) inj 5 mg 5 mg, Intramuscular, Q8H PRN Agitation, Starting on Thu09/14/24 at 1211, Until Discontinued, Upon reconstitution with 2.1 mL of Sterile [...] Documents on File Type Date Recorded Patient Filler Shredder Helper Expl anation Advance Directives and Living Will 09/20/2024 signed on 05/15/2021 ADVANCE DIRECTIVE / LIVING WILL Power of Design Technology Professor 09/20/2024 signed on 05/15/2021 POWER OF ONCOLOGY REP SPECIALIST * No Code (Latest Code Status on File) Date Activated Date Inactivated Comments 09/05/2024 9:07 PM This order ref lects the patients wishes and were consensually agreed [...] the patient have Health Care Power of Design Technology Professor? No Care Teams Compliance Administrator Relationship Specialty Start Date End Date Pro, Jeremy Lanza MD [address] [place] [place] [address] PCP - General Internal Medicine 08/27/24 documented as of this encounter
--- OUTSIDE RECORDS SUMMARY | 2024-09-26 19:31 | External Medical Summary ---
Author Name Unknown Address Unknown Organization [id number]:[facility] [address] [place] [address] Laboratory Report Ordering Provider Test Date Status LAVERNE ZAPIEN 09/21/2024 05:17:00 Final Observation Date Value Abnormality Reference (Units ) Status Phosphate 09/21/2024 05:17:00 3.5 2.5-4.8 (m g/dL) Final Performing Location [facility] - [address] [place] [address]
--- OUTSIDE RECORDS SUMMARY | 2024-09-26 19:31 | External Medical Summary ---
Author Name Unknown Address Unknown Organization [id number]:[facility] - [address] [place] [address] Laboratory Report Ordering Provider Test Date Status LAVERNE ZAPIEN 09/21/2024 05:17:00 Final Observation Date Value Abnormality Reference (Units ) Status Magnesium 09/21/2024 05:17:00 1.9 1.5-2.6 (m g/dL) Final Performing Location [facility] - [address] [place] [address]
--- OUTSIDE RECORDS SUMMARY | 2024-09-26 19:32 | External Medical Summary ---
Author Name Unknown Address Unknown Organization : Laboratory Report Ordering Provider Test Date Status ROB JONES 09/16/2024 22:27:35 Final Observation Date Value Abnormality Reference (Units ) Status Glucose Point of Care 09/16/2024 22:27:35 162 Above high normal 70-120 (mg/dL) Final Performing Location
--- OUTSIDE RECORDS SUMMARY | 2024-09-26 19:32 | External Medical Summary ---
Author Name Unknown Address Unknown Organization : Laboratory Report Ordering Provider Test Date Status ROB JONES 09/14/2024 20:53:04 Final Observation Date Value Abnormality Reference (Units ) Status Glucose Point of Care 09/14/2024 20:53:04 146 Above high normal 70-120 (mg/dL) Final Performing Location
--- OUTSIDE RECORDS SUMMARY | 2024-09-26 19:32 | External Medical Summary ---
Author Name Unknown Address Unknown Organization [id number]:[facility] [place] [address] [place] [address] Laboratory Report Ordering Provider Test Date Status ROB JONES 09/17/2024 07:18:00 Final Recommended trough therapeut ic ranges:
0.5 to 0.8 for heart failure
0.5 to 1.1 for atrial fibrillation Observation Date Value Abnormality Reference (Units ) Status Digoxin 09/17/2024 07:18:00 0.9 0.5-1.1 (n g/mL) Final Performing Location [facility] [place] [address] [place] [address]
--- OUTSIDE RECORDS SUMMARY | 2024-09-26 19:32 | External Medical Summary ---
Author Name Unknown Address Unknown Organization [id number][place] [place] [address] [facility] [address] Laboratory Report Ordering Provider Test Date Status ROB JONES 09/14/2024 17:43:00 Final Observation Date Value Abnormality Reference (Units ) Status BUN 09/14/2024 17:43:00 14 6-20 (mg/dL) Final Creatinine 09/14/2024 17:43:00 1.6 Above high normal 0.6-1.2 (mg/dL) Final Glomerular filtration rate/1.73 sq M.predicted [Volume Rate/Area] in Serum, Plasma or Blood by Creatinine-based formula (CKD-EPI) 09/14/2024 17:43:00 41 Below low normal >=60 (mL/min) Final eGFR is calculated based on the CKD-EPI 2020 equation. Sodium 09/14/2024 17:43:00 139 135-146 (m mol/L) Final Potassium 09/14/2024 17:43:00 3.7 3.5-5.1 (m mol/L) Final Cl 09/14/2024 17:43:00 104 98-107 (mm ol/L) Final CO2 09/14/2024 17:43:00 21 Below low normal 22- 32 (mmol/L) Final Anion gap 09/14/2024 17:43:00 14 7-15 (mmol /L) Final Glucose 09/14/2024 17:43:00 166 Above high normal 70 -120 (mg/dL) Final Calcium 09/14/2024 17:43:00 8.8 8.4-10.2 ( mg/dL) Final Performing Location [facility] [place] [address] [place] [address]
--- OUTSIDE RECORDS SUMMARY | 2024-09-26 19:32 | External Medical Summary ---
Author Name Unknown Address Unknown Organization [id number]:[facility] [place] - [address] [facility] [address] Laboratory Report Ordering Provider Test Date Status ROB JONES 09/20/2024 06:49:00 Final Observation Date Value Abnormality Reference (Units ) Status BUN 09/20/2024 06:49:00 8 6-20 (mg/dL) Final Creatinine 09/20/2024 06:49:00 1.6 Above high normal 0.6-1.2 (mg/dL) Final Glomerular filtration rate/1.73 sq M.predicted [Volume Rate/Area] in Serum, Plasma or Blood by Creatinine-based formula (CKD-EPI) 09/20/2024 06:49:00 40 Below low normal >=60 (mL/min) Final eGFR is calculated based on the CKD-EPI 2020 equation. Sodium 09/20/2024 06:49:00 139 135-146 (m mol/L) Final Potassium 09/20/2024 06:49:00 3.7 3.5-5.1 (m mol/L) Final Cl 09/20/2024 06:49:00 102 98-107 (mm ol/L) Final CO2 09/20/2024 06:49:00 26 22-32 (mmo l/L) Final Anion gap 09/20/2024 06:49:00 11 7-15 (mmol /L) Final Glucose 09/20/2024 06:49:00 160 Above high normal 70 -120 (mg/dL) Final Calcium 09/20/2024 06:49:00 8.5 8.4-10.2 ( mg/dL) Final Performing Location [facility] [place] - [address] [place] [address]
--- OUTSIDE RECORDS SUMMARY | 2024-09-26 19:32 | External Medical Summary ---
Author Name Unknown Address Unknown Organization : Laboratory Report Ordering Provider Test Date Status ROB JONES 09/18/2024 11:43:40 Final Observation Date Value Abnormality Reference (Units ) Status Glucose Point of Care 09/18/2024 11:43:40 200 Above high normal 70-120 (mg/dL) Final Performing Location
--- OUTSIDE RECORDS SUMMARY | 2024-09-26 19:32 | External Medical Summary ---
Author Name Unknown Address Unknown Organization : Laboratory Report Ordering Provider Test Date Status ROB JONES 09/18/2024 21:35:33 Final Observation Date Value Abnormality Reference (Units ) Status Glucose Point of Care 09/18/2024 21:35:33 193 Above high normal 70-120 (mg/dL) Final Performing Location
--- OUTSIDE RECORDS SUMMARY | 2024-09-26 19:32 | External Medical Summary ---
Author Name Unknown Address Unknown Organization [id number]:[facility] [place] - [address] [facility] [address] Laboratory Report Ordering Provider Test Date Status LATIA FONTENOT 09/16/2024 08:01:00 Final Observation Date Value Abnormality Reference (Units ) Status BUN 09/16/2024 08:01:00 15 6-20 (mg/dL) Final Creatinine 09/16/2024 08:01:00 1.6 Above high normal 0.6-1.2 (mg/dL) Final Glomerular filtration rate/1.73 sq M.predicted [Volume Rate/Area] in Serum, Plasma or Blood by Creatinine-based formula (CKD-EPI) 09/16/2024 08:01:00 41 Below low normal >=60 (mL/min) Final eGFR is calculated based on the CKD-EPI 2020 equation. Sodium 09/16/2024 08:01:00 141 135-146 (m mol/L) Final Potassium 09/16/2024 08:01:00 3.8 3.5-5.1 (m mol/L) Final Cl 09/16/2024 08:01:00 103 98-107 (mm ol/L) Final CO2 09/16/2024 08:01:00 25 22-32 (mmo l/L) Final Anion gap 09/16/2024 08:01:00 13 7-15 (mmol /L) Final Glucose 09/16/2024 08:01:00 132 Above high normal 70 -120 (mg/dL) Final Calcium 09/16/2024 08:01:00 8.5 8.4-10.2 ( mg/dL) Final Performing Location [facility] [place] - [address] [place] [address]
--- OUTSIDE RECORDS SUMMARY | 2024-09-26 19:32 | External Medical Summary ---
Author Name Unknown Address Unknown Organization : Laboratory Report Ordering Provider Test Date Status ROB JONES 09/19/2024 21:12:45 Final Observation Date Value Abnormality Reference (Units ) Status Glucose Point of Care 09/19/2024 21:12:45 133 Above high normal 70-120 (mg/dL) Final Performing Location
--- OUTSIDE RECORDS SUMMARY | 2024-09-26 19:32 | External Medical Summary ---
Author Name Unknown Address Unknown Organization : Laboratory Report Ordering Provider Test Date Status ROB JONES 09/20/2024 12:00:18 Final Observation Date Value Abnormality Reference (Units ) Status Glucose Point of Care 09/20/2024 12:00:18 155 Above high normal 70-120 (mg/dL) Final Performing Location
--- OUTSIDE RECORDS SUMMARY | 2024-09-26 19:32 | External Medical Summary ---
Author Name Unknown Address Unknown Organization K01[facility] [address] [place] [address] Laboratory Report Ordering Provider Test Date Status LAVERNE ZAPIEN 09/19/2024 06:26:00 Final Observation Date Value Abnormality Reference (Units ) Status Magnesium 09/19/2024 06:26:00 1.8 1.5-2.6 (m g/dL) Final Performing Location [facility] [address] [place] [address]
--- OUTSIDE RECORDS SUMMARY | 2024-09-26 19:32 | External Medical Summary ---
Author Name Unknown Address Unknown Organization : Laboratory Report Ordering Provider Test Date Status ROB JONES 09/14/2024 11:38:48 Final Observation Date Value Abnormality Reference (Units ) Status Glucose Point of Care 09/14/2024 11:38:48 169 Above high normal 70-120 (mg/dL) Final Performing Location
--- OUTSIDE RECORDS SUMMARY | 2024-09-26 19:32 | External Medical Summary ---
Author Name Unknown Address Unknown Organization [id number]:[facility] [address] [place] [address] Laboratory Report Ordering Provider Test Date Status LAVERNE ZAPIEN 09/16/2024 08:01:00 Final Observation Date Value Abnormality Reference (Units ) Status Magnesium 09/16/2024 08:01:00 2.0 1.5-2.6 (m g/dL) Final Performing Location [facility] [address] [place] [address]
--- OUTSIDE RECORDS SUMMARY | 2024-09-26 19:32 | External Medical Summary ---
Author Name Unknown Address Unknown Organization [id number]:[facility] [address] [place] [address] Laboratory Report Ordering Provider Test Date Status LAVERNE ZAPIEN 09/20/2024 06:49:00 Final Observation Date Value Abnormality Reference (Units ) Status Magnesium 09/20/2024 06:49:00 2.1 1.5-2.6 (m g/dL) Final Performing Location [facility] [address] [place] [address]
--- OUTSIDE RECORDS SUMMARY | 2024-09-26 19:32 | External Medical Summary ---
Author Name Unknown Address Unknown Organization [id number]:[facility] [address] [place] [address] Laboratory Report Ordering Provider Test Date Status LAVERNE ZAPIEN 09/15/2024 06:45:00 Final Observation Date Value Abnormality Reference (Units ) Status Phosphate 09/15/2024 06:45:00 3.8 2.5-4.8 (m g/dL) Final Performing Location [facility] - [address] [place] [address]
--- OUTSIDE RECORDS SUMMARY | 2024-09-26 19:32 | External Medical Summary ---
Author Name Unknown Address Unknown Organization : Laboratory Report Ordering Provider Test Date Status ROB JONES 09/16/2024 16:42:39 Final Observation Date Value Abnormality Reference (Units ) Status Glucose Point of Care 09/16/2024 16:42:39 148 Above high normal 70-120 (mg/dL) Final Performing Location
--- OUTSIDE RECORDS SUMMARY | 2024-09-26 19:32 | External Medical Summary ---
Author Name Unknown Address Unknown Organization [id number]:[facility] [place] - [address] [place] [address] Laboratory Report Ordering Provider Test Date Status ROB JONES 09/15/2024 10:33:00 Final Observation Date Value Abnormality Reference (Units ) Status Potassium, Whole Blood 09/15/2024 10:33:00 4.7 3.5-5.1 (mmol/L) Final Performing Location [facility] [place] - [address] [place] [address]
--- OUTSIDE RECORDS SUMMARY | 2024-09-26 19:32 | External Medical Summary ---
Author Name Unknown Address Unknown Organization [id number]:[facility] [place] - [address] [place] [address] Laboratory Report Ordering Provider Test Date Status ROB JONES 09/18/2024 07:17:00 Final Observation Date Value Abnormality Reference (Units ) Status WBC, Total 09/18/2024 07:17:00 8.56 4.00-10.80 (K/uL) Final RBC 09/18/2024 07:17:00 3.81 4.50-5.25 (M/uL) Final Hemoglobin 09/18/2024 07:17:00 10.8 Below low normal 14.0-16.8 (g/dL) Final HCT 09/18/2024 07:17:00 34.2 Below low normal 40.0-48.4 (%) Final MCV 09/18/2024 07:17:00 89.8 82.0-99.5 (fL) Final MCH 09/18/2024 07:17:00 28.3 27.0-34.0 (pg) Final MCHC 09/18/2024 07:17:00 31.6 32.0-36.0 (g/dL) Final RDW 09/18/2024 07:17:00 13.7 11.5-15.5 (%) Final Platelets 09/18/2024 07:17:00 169 140-400 (K/uL) Final MPV 09/18/2024 07:17:00 10.3 6.6-11.1 (fL) Final Nucleated erythrocytes/100 leukocytes [Ratio] in Blood by Automated count 09/18/2024 07:17:00 0 <=0 (/100 WBCs) Final Performing Location [facility] [place] - [address] [place] [address]
--- OUTSIDE RECORDS SUMMARY | 2024-09-26 19:32 | External Medical Summary ---
Author Name Unknown Address Unknown Organization : Laboratory Report Ordering Provider Test Date Status ROB JONES 09/15/2024 07:32:46 Final Observation Date Value Abnormality Reference (Units ) Status Glucose Point of Care 09/15/2024 07:32:46 123 Above high normal 70-120 (mg/dL) Final Performing Location
--- OUTSIDE RECORDS SUMMARY | 2024-09-26 19:32 | External Medical Summary ---
Author Name Unknown Address Unknown Organization : Laboratory Report Ordering Provider Test Date Status ROB JONES 09/19/2024 11:33:05 Final Observation Date Value Abnormality Reference (Units ) Status Glucose Point of Care 09/19/2024 11:33:05 171 Above high normal 70-120 (mg/dL) Final Performing Location
--- OUTSIDE RECORDS SUMMARY | 2024-09-26 19:32 | External Medical Summary ---
Author Name Unknown Address Unknown Organization : Laboratory Report Ordering Provider Test Date Status ROB JONES 09/15/2024 21:25:30 Final Observation Date Value Abnormality Reference (Units ) Status Glucose Point of Care 09/15/2024 21:25:30 144 Above high normal 70-120 (mg/dL) Final Performing Location
--- OUTSIDE RECORDS SUMMARY | 2024-09-26 19:32 | External Medical Summary ---
Author Name Unknown Address Unknown Organization [id number][facility] [place] [address] [facility] [address] Laboratory Report Ordering Provider Test Date Status LATIA FONTENOT 09/17/2024 07:18:00 Final Observation Date Value Abnormality Reference (Units ) Status BUN 09/17/2024 07:18:00 13 6-20 (mg/dL) Final Creatinine 09/17/2024 07:18:00 1.7 Above high normal 0.6-1.2 (mg/dL) Final Glomerular filtration rate/1.73 sq M.predicted [Volume Rate/Area] in Serum, Plasma or Blood by Creatinine-based formula (CKD-EPI) 09/17/2024 07:18:00 39 Below low normal >=60 (mL/min) Final eGFR is calculated based on the CKD-EPI 2020 equation. Sodium 09/17/2024 07:18:00 141 135-146 (m mol/L) Final Potassium 09/17/2024 07:18:00 3.4 Below low normal 3.5 -5.1 (mmol/L) Final Cl 09/17/2024 07:18:00 103 98-107 (mm ol/L) Final CO2 09/17/2024 07:18:00 24 22-32 (mmo l/L) Final Anion gap 09/17/2024 07:18:00 14 7-15 (mmol /L) Final Glucose 09/17/2024 07:18:00 158 Above high normal 70 -120 (mg/dL) Final Calcium 09/17/2024 07:18:00 8.5 8.4-10.2 ( mg/dL) Final Performing Location [facility] [place] [address] [place] [address]
--- OUTSIDE RECORDS SUMMARY | 2024-09-26 19:32 | External Medical Summary ---
Author Name Unknown Address Unknown Organization K01:[facility] [place] - [address] [place] [address] Laboratory Report Ordering Provider Test Date Status RUPALIVERONICAHERON 09/17/2024 07:18:00 Final Observation Date Value Abnormality Reference (Units ) Status Phosphate 09/17/2024 07:18:00 2.0 Below low normal 2.5 -4.8 (mg/dL) Final Performing Location [facility] - [address] [place] [address]
--- OUTSIDE RECORDS SUMMARY | 2024-09-26 19:32 | External Medical Summary ---
Author Name Unknown Address Unknown Organization K01:[facility] [place] [facility] [place] [address] [place] [address] Laboratory Report Ordering Provider Test Date Status ROB JONES 09/14/2024 08:08:00 Final Observation Date Value Abnormality Reference (Units ) Status WBC, Total 09/14/2024 08:08:00 7.84 4.00-10.80 (K/uL) Final RBC 09/14/2024 08:08:00 3.87 4.50-5.25 (M/uL) Final Hemoglobin 09/14/2024 08:08:00 11.1 Below low normal 14.0-16.8 (g/dL) Final HCT 09/14/2024 08:08:00 34.9 Below low normal 40.0-48.4 (%) Final MCV 09/14/2024 08:08:00 90.2 82.0-99.5 (fL) Final MCH 09/14/2024 08:08:00 28.7 27.0-34.0 (pg) Final MCHC 09/14/2024 08:08:00 31.8 32.0-36.0 (g/dL) Final RDW 09/14/2024 08:08:00 13.7 11.5-15.5 (%) Final Platelets 09/14/2024 08:08:00 183 140-400 (K/uL) Final MPV 09/14/2024 08:08:00 10.3 6.6-11.1 (fL) Final Nucleated erythrocytes/100 leukocytes [Ratio] in Blood by Automated count 09/14/2024 08:08:00 0 <=0 (/100 WBCs) Final Performing Location [facility] [place] [facility] [place] [address] [place] [address]
--- OUTSIDE RECORDS SUMMARY | 2024-09-26 19:32 | External Medical Summary ---
Author Name Unknown Address Unknown Organization : Laboratory Report Ordering Provider Test Date Status ROB JONES 09/18/2024 07:50:50 Final Observation Date Value Abnormality Reference (Units ) Status Glucose Point of Care 09/18/2024 07:50:50 145 Above high normal 70-120 (mg/dL) Final Performing Location
--- OUTSIDE RECORDS SUMMARY | 2024-09-26 19:32 | External Medical Summary ---
Author Name Unknown Address Unknown Organization : Laboratory Report Ordering Provider Test Date Status ROB JONES 09/17/2024 11:31:06 Final Observation Date Value Abnormality Reference (Units ) Status Glucose Point of Care 09/17/2024 11:31:06 115 70-120 (mg/dL) Final Performing Location
--- OUTSIDE RECORDS SUMMARY | 2024-09-26 19:32 | External Medical Summary ---
Author Name Unknown Address Unknown Organization K01:[facility] - [address] [place] [address] Laboratory Report Ordering Provider Test Date Status LAVERNE ZAPIEN 09/18/2024 07:17:00 Final Observation Date Value Abnormality Reference (Units ) Status Phosphate 09/18/2024 07:17:00 4.0 2.5-4.8 (m g/dL) Final Performing Location [facility] - [address] [place] [address]
--- OUTSIDE RECORDS SUMMARY | 2024-09-26 19:32 | External Medical Summary ---
Author Name Unknown Address Unknown Organization K01:[facility] - [address] [place] [address] Laboratory Report Ordering Provider Test Date Status KAY YOI 09/14/2024 17:43:00 Final Observation Date Value Abnormality Reference (Units ) Status Magnesium 09/14/2024 17:43:00 1.7 1.5-2.6 (m g/dL) Final Performing Location [facility] - [address] [place] [address]
--- OUTSIDE RECORDS SUMMARY | 2024-09-26 19:32 | External Medical Summary ---
Author Name Unknown Address Unknown Organization : Laboratory Report Ordering Provider Test Date Status ROB JONES 09/14/2024 18:03:09 Final Observation Date Value Abnormality Reference (Units ) Status Glucose Point of Care 09/14/2024 18:03:09 160 Above high normal 70-120 (mg/dL) Final Performing Location
--- OUTSIDE RECORDS SUMMARY | 2024-09-26 19:32 | External Medical Summary ---
Author Name Unknown Address Unknown Organization K01:[facility] - [address] [place] [address] Laboratory Report Ordering Provider Test Date Status LAVERNE ZAPIEN 09/20/2024 06:49:00 Final Observation Date Value Abnormality Reference (Units ) Status Phosphate 09/20/2024 06:49:00 3.1 2.5-4.8 (m g/dL) Final Performing Location [facility] - [address] [place] [address]
--- OUTSIDE RECORDS SUMMARY | 2024-09-26 19:32 | External Medical Summary ---
Author Name Unknown Address Unknown Organization K01:[facility] - [address] [place] [address] Laboratory Report Ordering Provider Test Date Status LAVERNE ZAPIEN 09/15/2024 06:45:00 Final Observation Date Value Abnormality Reference (Units ) Status Magnesium 09/15/2024 06:45:00 2.4 1.5-2.6 (m g/dL) Final Performing Location [facility] - [address] [place] [address]
--- OUTSIDE RECORDS SUMMARY | 2024-09-26 19:32 | External Medical Summary ---
Author Name Unknown Address Unknown Organization : Laboratory Report Ordering Provider Test Date Status ROB JONES 09/20/2024 17:12:23 Final Observation Date Value Abnormality Reference (Units ) Status Glucose Point of Care 09/20/2024 17:12:23 164 Above high normal 70-120 (mg/dL) Final Performing Location
--- OUTSIDE RECORDS SUMMARY | 2024-09-26 19:32 | External Medical Summary ---
Author Name Unknown Address Unknown Organization : Laboratory Report Ordering Provider Test Date Status ROB JONES 09/16/2024 21:07:37 Final Observation Date Value Abnormality Reference (Units ) Status Glucose Point of Care 09/16/2024 21:07:37 171 Above high normal 70-120 (mg/dL) Final Performing Location
--- OUTSIDE RECORDS SUMMARY | 2024-09-26 19:32 | External Medical Summary ---
Author Name Unknown Address Unknown Organization : Laboratory Report Ordering Provider Test Date Status ROB JONES 09/15/2024 16:51:13 Final Observation Date Value Abnormality Reference (Units ) Status Glucose Point of Care 09/15/2024 16:51:13 146 Above high normal 70-120 (mg/dL) Final Performing Location
--- OUTSIDE RECORDS SUMMARY | 2024-09-26 19:32 | External Medical Summary ---
Author Name Unknown Address Unknown Organization K01:LABORATORY [facility] [place] - [facility] [address] [facility] [address] Laboratory Report Ordering Provider Test Date Status LATIA FONTENOT 09/15/2024 06:45:00 Final Observation Date Value Abnormality Reference (Units ) Status BUN 09/15/2024 06:45:00 15 6-20 (mg/dL) Final Creatinine 09/15/2024 06:45:00 1.5 Above high normal 0.6-1.2 (mg/dL) Final Glomerular filtration rate/1.73 sq M.predicted [Volume Rate/Area] in Serum, Plasma or Blood by Creatinine-based formula (CKD-EPI) 09/15/2024 06:45:00 43 Below low normal >=60 (mL/min) Final eGFR is calculated based on the CKD-EPI 2020 equation. Sodium 09/15/2024 06:45:00 141 135-146 (m mol/L) Final Potassium 09/15/2024 06:45:00 Final Specimen too hemolyzed. Reor babar if needed. Cl 09/15/2024 06:45:00 106 98-107 (mm ol/L) Final CO2 09/15/2024 06:45:00 22 22-32 (mmo l/L) Final Anion gap 09/15/2024 06:45:00 13 7-15 (mmol /L) Final Glucose 09/15/2024 06:45:00 110 70-120 (mg /dL) Final Calcium 09/15/2024 06:45:00 9.0 8.4-10.2 ( mg/dL) Final Performing Location LABORATORY [facility] [place] - [address] [place] [address]
--- OUTSIDE RECORDS SUMMARY | 2024-09-26 19:32 | External Medical Summary ---
Author Name Unknown Address Unknown Organization K01:[facility] - [address] [place] [address] Laboratory Report Ordering Provider Test Date Status LAVERNE ZAPIEN 09/18/2024 07:17:00 Final Observation Date Value Abnormality Reference (Units ) Status Magnesium 09/18/2024 07:17:00 2.0 1.5-2.6 (m g/dL) Final Performing Location [facility] - [address] [place] [address]
--- OUTSIDE RECORDS SUMMARY | 2024-09-26 19:32 | External Medical Summary ---
Author Name Unknown Address Unknown Organization : Laboratory Report Ordering Provider Test Date Status ROB JONES 09/17/2024 17:01:46 Final Observation Date Value Abnormality Reference (Units ) Status Glucose Point of Care 09/17/2024 17:01:46 141 Above high normal 70-120 (mg/dL) Final Performing Location
--- OUTSIDE RECORDS SUMMARY | 2024-09-26 19:32 | External Medical Summary ---
Author Name Unknown Address Unknown Organization K01:[facility] - [address] [place] [address] Laboratory Report Ordering Provider Test Date Status LAVERNE ZAPIEN 09/16/2024 08:01:00 Final Observation Date Value Abnormality Reference (Units ) Status Phosphate 09/16/2024 08:01:00 3.4 2.5-4.8 (m g/dL) Final Performing Location [facility] - [address] [place] [address]
--- OUTSIDE RECORDS SUMMARY | 2024-09-26 19:32 | External Medical Summary ---
Author Name Unknown Address Unknown Organization K01:[facility] [place] - [address] [facility] [address] Laboratory Report Ordering Provider Test Date Status LATIA FONTENOT 09/18/2024 07:17:00 Final Observation Date Value Abnormality Reference (Units ) Status BUN 09/18/2024 07:17:00 9 6-20 (mg/dL) Final Creatinine 09/18/2024 07:17:00 1.5 Above high normal 0.6-1.2 (mg/dL) Final Glomerular filtration rate/1.73 sq M.predicted [Volume Rate/Area] in Serum, Plasma or Blood by Creatinine-based formula (CKD-EPI) 09/18/2024 07:17:00 43 Below low normal >=60 (mL/min) Final eGFR is calculated based on the CKD-EPI 2020 equation. Sodium 09/18/2024 07:17:00 141 135-146 (m mol/L) Final Potassium 09/18/2024 07:17:00 3.7 3.5-5.1 (m mol/L) Final Cl 09/18/2024 07:17:00 104 98-107 (mm ol/L) Final CO2 09/18/2024 07:17:00 26 22-32 (mmo l/L) Final Anion gap 09/18/2024 07:17:00 11 7-15 (mmol /L) Final Glucose 09/18/2024 07:17:00 146 Above high normal 70 -120 (mg/dL) Final Calcium 09/18/2024 07:17:00 8.5 8.4-10.2 ( mg/dL) Final Performing Location [facility] [place] - [address] [place] [address]
--- OUTSIDE RECORDS SUMMARY | 2024-09-26 19:32 | External Medical Summary ---
Author Name Unknown Address Unknown Organization : Laboratory Report Ordering Provider Test Date Status ROB JONES 09/19/2024 07:41:34 Final Observation Date Value Abnormality Reference (Units ) Status Glucose Point of Care 09/19/2024 07:41:34 139 Above high normal 70-120 (mg/dL) Final Performing Location
--- OUTSIDE RECORDS SUMMARY | 2024-09-26 19:32 | External Medical Summary ---
Author Name Unknown Address Unknown Organization K01:[facility] - [address] [place] [address] Laboratory Report Ordering Provider Test Date Status LAVERNE ZAPIEN 09/19/2024 06:26:00 Final Observation Date Value Abnormality Reference (Units ) Status Phosphate 09/19/2024 06:26:00 3.9 2.5-4.8 (m g/dL) Final Performing Location [facility] - [address] [place] [address]
--- OUTSIDE RECORDS SUMMARY | 2024-09-26 19:32 | External Medical Summary ---
Author Name Unknown Address Unknown Organization : Laboratory Report Ordering Provider Test Date Status ROB JONES 09/16/2024 07:41:29 Final Observation Date Value Abnormality Reference (Units ) Status Glucose Point of Care 09/16/2024 07:41:29 122 Above high normal 70-120 (mg/dL) Final Performing Location
--- OUTSIDE RECORDS SUMMARY | 2024-09-26 19:33 | External Medical Summary ---
Author Name Unknown Address Unknown Organization : Laboratory Report Ordering Provider Test Date Status TIM FREEMAN 09/11/2024 11:30:15 Final Observation Date Value Abnormality Reference (Units ) Status Glucose Point of Care 09/11/2024 11:30:15 161 Above high normal 70-120 (mg/dL) Final Performing Location
--- OUTSIDE RECORDS SUMMARY | 2024-09-26 19:33 | External Medical Summary ---
Author Name Unknown Address Unknown Organization : Laboratory Report Ordering Provider Test Date Status TIM FREEMAN 09/10/2024 06:07:03 Final Observation Date Value Abnormality Reference (Units ) Status Glucose Point of Care 09/10/2024 06:07:03 138 Above high normal 70-120 (mg/dL) Final Performing Location
--- OUTSIDE RECORDS SUMMARY | 2024-09-26 19:33 | External Medical Summary ---
Author Name Unknown Address Unknown Organization : Laboratory Report Ordering Provider Test Date Status LATIA FONTENOT 09/13/2024 16:28:05 Final Observation Date Value Abnormality Reference (Units ) Status Glucose Point of Care 09/13/2024 16:28:05 101 70-120 (mg/dL) Final Performing Location
--- OUTSIDE RECORDS SUMMARY | 2024-09-26 19:33 | External Medical Summary ---
Author Name Unknown Address Unknown Organization K01:[facility] - [address] [place] [address] Laboratory Report Ordering Provider Test Date Status JULIO SHAFER 09/09/2024 07:49:00 Final Observation Date Value Abnormality Reference (Units ) Status Phosphate 09/09/2024 07:49:00 2.8 2.5-4.8 (m g/dL) Final Performing Location [facility] - [address] [place] [address]
--- OUTSIDE RECORDS SUMMARY | 2024-09-26 19:33 | External Medical Summary ---
Author Name Unknown Address Unknown Organization K01:[facility] - [address] [place] [address] Laboratory Report Ordering Provider Test Date Status LAVERNE ZAPIEN 09/13/2024 05:58:00 Final Observation Date Value Abnormality Reference (Units ) Status Magnesium 09/13/2024 05:58:00 1.9 1.5-2.6 (m g/dL) Final Performing Location [facility] - [address] [place] [address]
--- OUTSIDE RECORDS SUMMARY | 2024-09-26 19:33 | External Medical Summary ---
Author Name Unknown Address Unknown Organization : Laboratory Report Ordering Provider Test Date Status LATIA FONTENOT 09/12/2024 16:33:37 Final Observation Date Value Abnormality Reference (Units ) Status Glucose Point of Care 09/12/2024 16:33:37 234 Above high normal 70-120 (mg/dL) Final Performing Location
--- OUTSIDE RECORDS SUMMARY | 2024-09-26 19:33 | External Medical Summary ---
Author Name Unknown Address Unknown Organization K01:[facility] - [address] [place] [address] Laboratory Report Ordering Provider Test Date Status LAVERNE ZAPIEN 09/13/2024 05:58:00 Final Observation Date Value Abnormality Reference (Units ) Status Phosphate 09/13/2024 05:58:00 4.2 2.5-4.8 (m g/dL) Final Performing Location [facility] - [address] [place] [address]
--- OUTSIDE RECORDS SUMMARY | 2024-09-26 19:33 | External Medical Summary ---
Author Name Unknown Address Unknown Organization K01:LAB[facility]ORY [facility] [place] [address] [place] [address] Laboratory Report Ordering Provider Test Date Status KING ORTEGA 09/10/2024 06:03:00 Final Observation Date Value Abnormality Reference (Units ) Status WBC, Total 09/10/2024 06:03:00 7.49 4.00-10.80 (K/uL) Final RBC 09/10/2024 06:03:00 3.99 4.50-5.25 (M/uL) Final Hemoglobin 09/10/2024 06:03:00 11.4 Below low normal 14.0-16.8 (g/dL) Final HCT 09/10/2024 06:03:00 35.3 Below low normal 40.0-48.4 (%) Final MCV 09/10/2024 06:03:00 88.5 82.0-99.5 (fL) Final MCH 09/10/2024 06:03:00 28.6 27.0-34.0 (pg) Final MCHC 09/10/2024 06:03:00 32.3 32.0-36.0 (g/dL) Final RDW 09/10/2024 06:03:00 13.4 11.5-15.5 (%) Final Platelets 09/10/2024 06:03:00 161 140-400 (K/uL) Final MPV 09/10/2024 06:03:00 10.6 6.6-11.1 (fL) Final Nucleated erythrocytes/100 leukocytes [Ratio] in Blood by Automated count 09/10/2024 06:03:00 0 <=0 (/100 WBCs) Final Performing Location LABOR[facility]ORY [facility] [place] [address] [place] [address]
--- OUTSIDE RECORDS SUMMARY | 2024-09-26 19:33 | External Medical Summary ---
Author Name Unknown Address Unknown Organization K01:[facility] - [address] [place] [address] Laboratory Report Ordering Provider Test Date Status LAVERNE ZAPIEN 09/14/2024 06:44:00 Final Observation Date Value Abnormality Reference (Units ) Status Magnesium 09/14/2024 06:44:00 1.7 1.5-2.6 (m g/dL) Final Performing Location [facility] - [address] [place] [address]
--- OUTSIDE RECORDS SUMMARY | 2024-09-26 19:33 | External Medical Summary ---
Author Name Unknown Address Unknown Organization : Laboratory Report Ordering Provider Test Date Status LATIA FONTENOT 09/12/2024 08:08:50 Final Observation Date Value Abnormality Reference (Units ) Status Glucose Point of Care 09/12/2024 08:08:50 148 Above high normal 70-120 (mg/dL) Final Performing Location
--- OUTSIDE RECORDS SUMMARY | 2024-09-26 19:33 | External Medical Summary ---
Author Name Unknown Address Unknown Organization : Laboratory Report Ordering Provider Test Date Status KENDELL KWAN 09/11/2024 16:59:02 Final Observation Date Value Abnormality Reference (Units ) Status Glucose Point of Care 09/11/2024 16:59:02 140 Above high normal 70-120 (mg/dL) Final Performing Location
--- OUTSIDE RECORDS SUMMARY | 2024-09-26 19:33 | External Medical Summary ---
Author Name Unknown Address Unknown Organization [id number]:[place] [facility] [place] [address] [facility] [address] Laboratory Report Ordering Provider Test Date Status KING ORTEGA 09/09/2024 07:49:00 Final Observation Date Value Abnormality Reference (Units ) Status BUN 09/09/2024 07:49:00 15 6-20 (mg/dL) Final Creatinine 09/09/2024 07:49:00 1.4 Above high normal 0.6-1.2 (mg/dL) Final Glomerular filtration rate/1.73 sq M.predicted [Volume Rate/Area] in Serum, Plasma or Blood by Creatinine-based formula (CKD-EPI) 09/09/2024 07:49:00 47 Below low normal >=60 (mL/min) Final eGFR is calculated based on the CKD-EPI 2020 equation. Sodium 09/09/2024 07:49:00 142 135-146 (m mol/L) Final Potassium 09/09/2024 07:49:00 3.8 3.5-5.1 (m mol/L) Final Cl 09/09/2024 07:49:00 110 Above high normal 98 -107 (mmol/L) Final CO2 09/09/2024 07:49:00 22 22-32 (mmo l/L) Final Anion gap 09/09/2024 07:49:00 10 7-15 (mmol /L) Final Glucose 09/09/2024 07:49:00 161 Above high normal 70 -120 (mg/dL) Final Calcium 09/09/2024 07:49:00 8.6 8.4-10.2 ( mg/dL) Final Performing Location [facility] [place] [address] [place] [address]
--- OUTSIDE RECORDS SUMMARY | 2024-09-26 19:33 | External Medical Summary ---
Author Name Unknown Address Unknown Organization K01:[facility] - [address] [place] [address] Laboratory Report Ordering Provider Test Date Status RUPALILAVERNE 09/12/2024 07:21:00 Final Observation Date Value Abnormality Reference (Units ) Status Phosphate 09/12/2024 07:21:00 3.8 2.5-4.8 (m g/dL) Final Performing Location [facility] - [address] [place] [address]
--- OUTSIDE RECORDS SUMMARY | 2024-09-26 19:33 | External Medical Summary ---
Author Name Unknown Address Unknown Organization K01:LABORATORY [facility] - [address] [place] [address] Laboratory Report Ordering Provider Test Date Status PO,LATIA 09/12/2024 16:24:00 Final Observation Date Value Abnormality Reference (Units ) Status Iron 09/12/2024 16:24:00 43 Below low normal 45-176 (ug/dL) Final Iron-binding capacity 09/12/2024 16:24:00 190 Below low normal 250-425 (ug/dL) Final Transferrin Sat % 09/12/2024 16:24:00 23 15-55 (%) Final Performing Location [facility] - [address] [place] [address]
--- OUTSIDE RECORDS SUMMARY | 2024-09-26 19:33 | External Medical Summary ---
Author Name Unknown Address Unknown Organization K01:[facility] - [address] [place] [address] Laboratory Report Ordering Provider Test Date Status JULIO SHAFER 09/11/2024 06:44:00 Final Observation Date Value Abnormality Reference (Units ) Status Magnesium 09/11/2024 06:44:00 1.8 1.5-2.6 (m g/dL) Final Performing Location [facility] - [address] [place] [address]
--- OUTSIDE RECORDS SUMMARY | 2024-09-26 19:33 | External Medical Summary ---
Author Name Unknown Address Unknown Organization [id number]:[place] [facility] [address] [place] [address] Laboratory Report Ordering Provider Test Date Status PO,LATIA 09/12/2024 07:21:00 Final Observation Date Value Abnormality Reference (Units ) Status Ferritin 09/12/2024 07:21:00 259 30-400 (ng /mL) Final Performing Location [facility] - [address] [place] [address]
--- OUTSIDE RECORDS SUMMARY | 2024-09-26 19:33 | External Medical Summary ---
Author Name Unknown Address Unknown Organization [id number]:[place] [facility] [place] [address] [facility] [address] Laboratory Report Ordering Provider Test Date Status LAVERNE ZAPIEN 09/12/2024 07:21:00 Final Observation Date Value Abnormality Reference (Units ) Status BUN 09/12/2024 07:21:00 15 6-20 (mg/dL) Final Creatinine 09/12/2024 07:21:00 1.4 Above high normal 0.6-1.2 (mg/dL) Final Glomerular filtration rate/1.73 sq M.predicted [Volume Rate/Area] in Serum, Plasma or Blood by Creatinine-based formula (CKD-EPI) 09/12/2024 07:21:00 47 Below low normal >=60 (mL/min) Final eGFR is calculated based on the CKD-EPI 2020 equation. Sodium 09/12/2024 07:21:00 140 135-146 (m mol/L) Final Potassium 09/12/2024 07:21:00 3.9 3.5-5.1 (m mol/L) Final Results may be falsely eleva roxie due to hemolysis. Cl 09/12/2024 07:21:00 106 98-107 (mm ol/L) Final CO2 09/12/2024 07:21:00 19 Below low normal 22- 32 (mmol/L) Final Anion gap 09/12/2024 07:21:00 15 7-15 (mmol /L) Final Glucose 09/12/2024 07:21:00 156 Above high normal 70 -120 (mg/dL) Final Calcium 09/12/2024 07:21:00 8.4 8.4-10.2 ( mg/dL) Final Performing Location LABORATORY [facility] - [address] [place] [address]
--- OUTSIDE RECORDS SUMMARY | 2024-09-26 19:33 | External Medical Summary ---
Author Name Unknown Address Unknown Organization K01:[facility] - [address] [place] [address] Laboratory Report Ordering Provider Test Date Status JULIO SHAFER 09/11/2024 06:44:00 Final Observation Date Value Abnormality Reference (Units ) Status Phosphate 09/11/2024 06:44:00 3.4 2.5-4.8 (m g/dL) Final Performing Location [facility] - [address] [place] [address]
--- OUTSIDE RECORDS SUMMARY | 2024-09-26 19:33 | External Medical Summary ---
Author Name Unknown Address Unknown Organization : Laboratory Report Ordering Provider Test Date Status ROB JONES 09/14/2024 07:29:56 Final Observation Date Value Abnormality Reference (Units ) Status Glucose Point of Care 09/14/2024 07:29:56 122 Above high normal 70-120 (mg/dL) Final Performing Location
--- OUTSIDE RECORDS SUMMARY | 2024-09-26 19:33 | External Medical Summary ---
Author Name Unknown Address Unknown Organization [id number]:[place] [facility] [place] [address] [address] Laboratory Report Ordering Provider Test Date Status CHRIST FONTENOTSA 09/12/2024 07:21:00 Final Observation Date Value Abnormality Reference (Units ) Status Vitamin B12 09/12/2024 07:21:00 784 236-1784 (pg/mL) Final Performing Location [facility] [facility] [place] [address] [place] [address]
--- OUTSIDE RECORDS SUMMARY | 2024-09-26 19:33 | External Medical Summary ---
Author Name Unknown Address Unknown Organization : Laboratory Report Ordering Provider Test Date Status TIM FREEMAN 09/10/2024 11:58:22 Final Observation Date Value Abnormality Reference (Units ) Status Glucose Point of Care 09/10/2024 11:58:22 153 Above high normal 70-120 (mg/dL) Final Performing Location
--- OUTSIDE RECORDS SUMMARY | 2024-09-26 19:33 | External Medical Summary ---
Author Name Unknown Address Unknown Organization K01:[place] [facility] [place] [address] [address] Laboratory Report Ordering Provider Test Date Status JAMARCUS ERNST 09/11/2024 22:41:00 Final Observation Date Value Abnormality Reference (Units ) Status Body temperature 09/11/2024 22:41:00 37.0 (C) Final pH of Arterial blood 09/11/2024 22:41:00 7.350 7.350-7.450 (units) Final Carbon dioxide [Partial pressure] in Arterial blood 09/11/2024 22:41:00 34.7 Below low normal 35.0-45.0 (mmHg) Final Oxygen [Partial pressure] in Arterial blood 09/11/2024 22:41:00 63.4 Below low normal 75.0-100.0 (mmHg) Final Base excess, Arterial 09/11/2024 22:41:00 -5.7 Below low normal -2.0-2.0 (mmol/L) Final Hemoglobin [Mass/volume] in Blood by Oximetry 09/11/2024 22:41:00 11.9 Below low normal 14.0-16.8 (g/dL) Final Oxyhemoglobin, Arterial (FO2HB) 09/11/2024 22:41:00 89.0 Below low normal 94.0-99.0 (% total Hgb) Final Carboxyhemoglobin 09/11/2024 22:41:00 1.3 <=1.5 (% total Hgb) Final Smokers: 0-9.0 % Methemoglobin 09/11/2024 22:41:00 0.3 <=1.5 (% total Hgb) Final Deoxyhemoglobin/Hemog lobin.total in Arterial blood 09/11/2024 22:41:00 9.4 Above high normal 0.0-5.0 (% total Hgb) Final Oxygen content in Arterial blood 09/11/2024 22:41:00 14.9 Below low normal 15.0-24.0 (%vol) Final Oxygen/Total gas setting [Volume Fraction] Ventilator 09/11/2024 22:41:00 Not Provided (%) Final O2 FLOW, ARTERIAL - [facility] 09/11/2024 22:41:00 Not Provided (L/min) Final Bicarbonate, Venous, POC (i-STAT) 09/11/2024 22:41:00 18.7 Below low normal 23.0-31.0 (mmol/L) Final Performing Location [facility] [facility] [place] [address] [facility] [address]
--- OUTSIDE RECORDS SUMMARY | 2024-09-26 19:33 | External Medical Summary ---
Author Name Unknown Address Unknown Organization : Laboratory Report Ordering Provider Test Date Status GORGE ZARATE 09/11/2024 23:36:54 Final Observation Date Value Abnormality Reference (Units ) Status Glucose Point of Care 09/11/2024 23:36:54 209 Above high normal 70-120 (mg/dL) Final Performing Location
--- OUTSIDE RECORDS SUMMARY | 2024-09-26 19:33 | External Medical Summary ---
Author Name Unknown Address Unknown Organization : Laboratory Report Ordering Provider Test Date Status TIM FREEMAN 09/09/2024 16:43:35 Final Observation Date Value Abnormality Reference (Units ) Status Glucose Point of Care 09/09/2024 16:43:35 121 Above high normal 70-120 (mg/dL) Final Performing Location
--- OUTSIDE RECORDS SUMMARY | 2024-09-26 19:33 | External Medical Summary ---
Author Name Unknown Address Unknown Organization K01:[place] [facility] [place] [address] [place] [address] Laboratory Report Ordering Provider Test Date Status LATIA FONTENOT 09/12/2024 07:21:00 Final Observation Date Value Abnormality Reference (Units ) Status Folic Acid 09/12/2024 07:21:00 7.2 >4.5 (ng/ mL) Final Results may be falsely eleva roxie due to hemolysis. Performing Location [facility] - [address] [place] [address]
--- OUTSIDE RECORDS SUMMARY | 2024-09-26 19:33 | External Medical Summary ---
Author Name Unknown Address Unknown Organization K01:[place] [facility] [place] [address] [place] [address] Laboratory Report Ordering Provider Test Date Status KING ORTEGA 09/09/2024 07:49:00 Final Observation Date Value Abnormality Reference (Units ) Status WBC, Total 09/09/2024 07:49:00 6.71 4.00-10.80 (K/uL) Final RBC 09/09/2024 07:49:00 3.86 4.50-5.25 (M/uL) Final Hemoglobin 09/09/2024 07:49:00 10.9 Below low normal 14.0-16.8 (g/dL) Final HCT 09/09/2024 07:49:00 34.1 Below low normal 40.0-48.4 (%) Final MCV 09/09/2024 07:49:00 88.3 82.0-99.5 (fL) Final MCH 09/09/2024 07:49:00 28.2 27.0-34.0 (pg) Final MCHC 09/09/2024 07:49:00 32.0 32.0-36.0 (g/dL) Final RDW 09/09/2024 07:49:00 13.2 11.5-15.5 (%) Final Platelets 09/09/2024 07:49:00 139 Below low normal 140-400 (K/uL) Final MPV 09/09/2024 07:49:00 10.5 6.6-11.1 (fL) Final Nucleated erythrocytes/100 leukocytes [Ratio] in Blood by Automated count 09/09/2024 07:49:00 0 <=0 (/100 WBCs) Final Performing Location [place] [facility] [place] [address] [place] [address]
--- OUTSIDE RECORDS SUMMARY | 2024-09-26 19:33 | External Medical Summary ---
Author Name Unknown Address Unknown Organization K01:[place] [facility] [place] [address] [facility] [address] Laboratory Report Ordering Provider Test Date Status KING ORTEGA 09/11/2024 06:44:00 Final Observation Date Value Abnormality Reference (Units ) Status BUN 09/11/2024 06:44:00 15 6-20 (mg/dL) Final Creatinine 09/11/2024 06:44:00 1.3 Above high normal 0.6-1.2 (mg/dL) Final Glomerular filtration rate/1.73 sq M.predicted [Volume Rate/Area] in Serum, Plasma or Blood by Creatinine-based formula (CKD-EPI) 09/11/2024 06:44:00 52 Below low normal >=60 (mL/min) Final eGFR is calculated based on the CKD-EPI 2020 equation. Sodium 09/11/2024 06:44:00 140 135-146 (m mol/L) Final Potassium 09/11/2024 06:44:00 3.8 3.5-5.1 (m mol/L) Final Cl 09/11/2024 06:44:00 106 98-107 (mm ol/L) Final CO2 09/11/2024 06:44:00 17 Below low normal 22- 32 (mmol/L) Final Anion gap 09/11/2024 06:44:00 17 Above high normal 7- 15 (mmol/L) Final Glucose 09/11/2024 06:44:00 116 70-120 (mg /dL) Final Calcium 09/11/2024 06:44:00 8.4 8.4-10.2 ( mg/dL) Final Performing Location [place] [facility] [place] [address] [place] [address]
--- OUTSIDE RECORDS SUMMARY | 2024-09-26 19:33 | External Medical Summary ---
Author Name Unknown Address Unknown Organization K01:[facility] - [address] [place] [address] Laboratory Report Ordering Provider Test Date Status LAVERNE ZAPIEN 09/14/2024 06:44:00 Final Observation Date Value Abnormality Reference (Units ) Status Phosphate 09/14/2024 06:44:00 3.2 2.5-4.8 (m g/dL) Final Performing Location [facility] - [address] [place] [address]
--- OUTSIDE RECORDS SUMMARY | 2024-09-26 19:33 | External Medical Summary ---
Author Name Unknown Address Unknown Organization K01:[facility] - [address] [place] [address] Laboratory Report Ordering Provider Test Date Status JULIO SHAFER 09/10/2024 06:03:00 Final Observation Date Value Abnormality Reference (Units ) Status Phosphate 09/10/2024 06:03:00 3.8 2.5-4.8 (m g/dL) Final Performing Location [facility] - [address] [place] [address]
--- OUTSIDE RECORDS SUMMARY | 2024-09-26 19:33 | External Medical Summary | Summary of Care ---
Author Name Unknown Organization [facility] Address [address] [place] [address] Phone [phone] Care Team Providers Care Extruding Department Supervisor Name Role Phone Jeremy Ruby MD Primary Care Provider [phone] Encounter Details Date Type Department Care Team (Late st Contact Info) Description 09/09/2024 CardioDiagnostic Study Unspecified Department Power Barba MD [address] [place] [address] EKG Report Allergies No known active allergiesdocumented as of this encounter (statuses as of 09/13/2024) Medications Dorzolamide HCl-Timolol Mal 2-0.5 % Ophthalmic Solution (Cosopt Ocumeter Plus) Instill 1 Drop into eye in the morning and 1 Drop before bedtime. Suspended Lisinopril 5 MG Oral Tablet (Prinivil) Take 1 Tablet by mouth in the morning. 01/06/20 24 Suspended metFORMIN HCl ER 500 MG Oral Tablet Extended Release 24 Hour (Glucophage XR) Take 2 Tablets by mouth in the morning and 2 Tablets before bedtime. 02/09/20 24 Suspended Metoprolol Succinate ER 50 MG Oral Tablet Extended Release 24 Hour (toPROL XL) Take 1.5 Tablets by mouth in the morning. 11/04/19 24 Suspended amLODIPine Besylate 2.5 MG Oral Tablet (Norvasc) Take 1 Tablet by mouth in the morning. 11/26/19 24 Suspended Dulaglutide 4.5 MG/0.5ML Subcutaneous Solution Auto-injector ([employer]) Inject 4.5 mg under the skin every Thursday. 05/18/20 24 Suspended Aspirin 81 MG Oral Tablet Delayed Release Take 1 Tablet by mouth in the morning. 12/25/19 24 Suspended Atorvastatin Calcium 40 MG Oral Tablet (Lipitor) Take 1 Tablet by mouth in the morning. 07/05/20 24 Suspended Citalopram Hydrobromide 10 MG Oral Tablet (CeleXA) Take 1 Tablet by mouth in the morning. 02/11/20 24 Suspended glipiZIDE ER 10 MG Oral Tablet Extended Release 24 Hour (glipiZIDE XL) Take 1 Tablet by mouth in the morning. 01/06/20 24 Suspended Pantoprazole Sodium 40 MG Oral Tablet Delayed Release (Protonix) Take 1 Tablet by mouth in the morning. 01/12/20 24 Suspended Cholecalciferol 50 MCG (2000 UT) Oral Tablet Take 1 Tablet by mouth in the morning. 03/30/20 24 Suspended cycloSPORINE 0.05 % Ophthalmic Emulsion (Restasis) Instill 1 Drop into both eyes in the morning and 1 Drop before bedtime. 11/04/19 24 Suspended Melatonin 5 MG Oral Capsule Take 1 Capsule by mouth at bedtime. 07/05/20 24 Suspended Ferrous Sulfate 325 (65 Fe) MG Oral Tablet (Feosol) Take 1 Tablet by mouth daily with breakfast. 01/12/20 24 Suspended Finasteride 5 MG Oral Tablet (Proscar) Take 1 Tablet by mouth in the morning. 05/18/20 24 Suspended AMBULATORY MISCELLANEOUS MEDICATION Dorzolamide HCI-Timolol 22.3-6.8: Administer 1 drop in both eyes twice daily Suspended documented as of this encounter (statuses as of 09/13/2024) Active Problems Problem Noted Date Diagnosed Date Atrial fibrillation with RVR 09/13/2024 New onset a-fib 09/13/2024 Acute respiratory failure with hypoxia Depression 09/13/2024 Pulmonary edema 09/12/2024 Heart failure, systolic, with acute decompensati on 09/12/2024 History of CAD (coronary artery disease) 025 Systolic heart failure 09/07/2024 Dyslipidemia, goal LDL below 70 09/07/2024 Delirium due to multiple etiologies, acute, hype ractive 09/07/2024 Encephalopathy acute 09/07/2024 Ac isch multi vasc territories stroke 09/06/2024 Stroke-like symptoms 09/05/2024 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 documented as of this encounter (statuses as of 09/13/2024) Social History Tobacco Use Types Packs/Day Years [...] Ivett Wynne RN documented in this encounter Procedure Notes * Jhonatan Vizcarra, - 09/09/2024 2:57 AM ESTAssociated Order(s): EKG REPORT REASON FOR STUDY: a fib CONCLUSIONS: Atrial fibrillation with rapid ventricular response High QRS voltage may be normal variant or due to lve ( [place]on product ) Nonspecific ST and T wave abnormality When compared with ECG of 08-Sep-2024 21:13, Atrial fibrillation has replaced Sinus rhythm ST now depressed in Anterior leads Ventricular Rate: 103 QRS Duration: 104 QT/QTc: 386/505 ms P-R-T [place]: 0 : 1 : 105 degrees documented in this encounter Plan of Treatment Upcoming Encounters Date Type Department Care Team (Late st Contact Info) Description 11/29/2024 3:00 PM EDT Office Visit Neurosurgery, [place] [address] [place] [address] Haider Quinn MD [address] [place] [address] 01/04/2025 11:20 AM EDT Telemedicine Neurology [facility] [address] [place] [address] [place] [address] Sagar Ohara MD [address] [place] [address] [facility] [address] [place] [address] Health Maintenance Due Date Last Done Comments Depression Screening 1947 DTap/Tdap Vaccines (1 - Tdap) 1954 [...] Procedure Name Priority Date/Time Associated Diagnosis Comments EKG REPORT 09/09/2024 2:57 AM EST documented in this encounter Results * EKG REPORT (09/09/2024 2:57 AM EST) 09/09/2024 2:57 AM EST Narrative Procedure Note Paul Vizcarraory Korey, DO - 09/09/2024 2:57 AM EST REASON FOR STUDY: a fib CONCLUSIONS: Atrial fibrillation with rapid ventricular response High QRS voltage may be normal variant or due to lve ( [place] product ) Nonspecific ST and T wave abnormality When compared with ECG of 08-Sep-2024 21:13, Atrial fibrillation has replaced Sinus rhythm ST now depressed in Anterior leads Ventricular Rate: 103 QRS Duration: 104 QT/QTc: 386/505 ms P-R-T [place]: 0 : 1 : 105 degrees us Power Matthews MD EKG Final Res ult documented in this encounter Advance Directives * No Code (Latest Code Status on [...] the patient have Health Care Power of Standard Machine Stitcher? No Care Teams Extruding Department Supervisor Relationship Specialty Start Date End Date Pro, Jeremy Lanza MD [address] [place] [address] PCP - General Internal Medicine 09/07/24 documented as of this encounter
--- OUTSIDE RECORDS SUMMARY | 2024-09-26 19:33 | External Medical Summary ---
Author Name Unknown Address Unknown Organization : Laboratory Report Ordering Provider Test Date Status TIM FREEMAN 09/11/2024 00:18:16 Final Observation Date Value Abnormality Reference (Units ) Status Glucose Point of Care 09/11/2024 00:18:16 118 70-120 (mg/dL) Final Performing Location
--- OUTSIDE RECORDS SUMMARY | 2024-09-26 19:33 | External Medical Summary ---
Author Name Unknown Address Unknown Organization K01:LABORATORY [facility] [place] [address] [place] [address] Laboratory Report Ordering Provider Test Date Status KING ORTEGA 09/10/2024 06:03:00 Final Observation Date Value Abnormality Reference (Units ) Status BUN 09/10/2024 06:03:00 16 6-20 (mg/dL) Final Creatinine 09/10/2024 06:03:00 1.4 Above high normal 0.6-1.2 (mg/dL) Final Glomerular filtration rate/1.73 sq M.predicted [Volume Rate/Area] in Serum, Plasma or Blood by Creatinine-based formula (CKD-EPI) 09/10/2024 06:03:00 49 Below low normal >=60 (mL/min) Final eGFR is calculated based on the CKD-EPI 2020 equation. Sodium 09/10/2024 06:03:00 142 135-146 (m mol/L) Final Potassium 09/10/2024 06:03:00 3.6 3.5-5.1 (m mol/L) Final Cl 09/10/2024 06:03:00 108 Above high normal 98 -107 (mmol/L) Final CO2 09/10/2024 06:03:00 20 Below low normal 22- 32 (mmol/L) Final Anion gap 09/10/2024 06:03:00 14 7-15 (mmol /L) Final Glucose 09/10/2024 06:03:00 140 Above high normal 70 -120 (mg/dL) Final Calcium 09/10/2024 06:03:00 8.5 8.4-10.2 ( mg/dL) Final Performing Location LABORATORY [facility] [place] - [address] [place] [address]
--- OUTSIDE RECORDS SUMMARY | 2024-09-26 19:33 | External Medical Summary ---
Author Name Unknown Address Unknown Organization K01:LABORATORY [facility] [place] [address] [place] [address] Laboratory Report Ordering Provider Test Date Status KING ORTEGA 09/11/2024 08:04:00 Final Observation Date Value Abnormality Reference (Units ) Status WBC, Total 09/11/2024 08:04:00 7.87 4.00-10.80 (K/uL) Final RBC 09/11/2024 08:04:00 3.78 4.50-5.25 (M/uL) Final Hemoglobin 09/11/2024 08:04:00 10.8 Below low normal 14.0-16.8 (g/dL) Final HCT 09/11/2024 08:04:00 32.7 Below low normal 40.0-48.4 (%) Final MCV 09/11/2024 08:04:00 86.5 82.0-99.5 (fL) Final MCH 09/11/2024 08:04:00 28.6 27.0-34.0 (pg) Final MCHC 09/11/2024 08:04:00 33.0 32.0-36.0 (g/dL) Final RDW 09/11/2024 08:04:00 13.6 11.5-15.5 (%) Final Platelets 09/11/2024 08:04:00 186 140-400 (K/uL) Final MPV 09/11/2024 08:04:00 10.6 6.6-11.1 (fL) Final Nucleated erythrocytes/100 leukocytes [Ratio] in Blood by Automated count 09/11/2024 08:04:00 0 <=0 (/100 WBCs) Final Performing Location LABORATORY [facility] [place] - [address] [place] [address]
--- OUTSIDE RECORDS SUMMARY | 2024-09-26 19:33 | External Medical Summary ---
Author Name Unknown Address Unknown Organization K01:[facility] - [address] [place] [address] Laboratory Report Ordering Provider Test Date Status JULIO SHAFER 09/09/2024 07:49:00 Final Observation Date Value Abnormality Reference (Units ) Status Magnesium 09/09/2024 07:49:00 1.9 1.5-2.6 (m g/dL) Final Performing Location [facility] - [address] [place] [address]
--- OUTSIDE RECORDS SUMMARY | 2024-09-26 19:33 | External Medical Summary ---
Author Name Unknown Address Unknown Organization K01:LABORATORY [facility] - [address] [place] [address] Laboratory Report Ordering Provider Test Date Status JULIO SHAFER 09/10/2024 06:03:00 Final Observation Date Value Abnormality Reference (Units ) Status Magnesium 09/10/2024 06:03:00 1.7 1.5-2.6 (m g/dL) Final Performing Location [facility] - [address] [place] [address]
--- OUTSIDE RECORDS SUMMARY | 2024-09-26 19:33 | External Medical Summary ---
Author Name Unknown Address Unknown Organization : Laboratory Report Ordering Provider Test Date Status LATIA FONTENOT 09/12/2024 10:23:35 Final Observation Date Value Abnormality Reference (Units ) Status Glucose Point of Care 09/12/2024 10:23:35 156 Above high normal 70-120 (mg/dL) Final Performing Location
--- OUTSIDE RECORDS SUMMARY | 2024-09-26 19:33 | External Medical Summary ---
Author Name Unknown Address Unknown Organization : Laboratory Report Ordering Provider Test Date Status LATIA FONTENOT 09/13/2024 21:05:04 Final Observation Date Value Abnormality Reference (Units ) Status Glucose Point of Care 09/13/2024 21:05:04 159 Above high normal 70-120 (mg/dL) Final Performing Location
--- OUTSIDE RECORDS SUMMARY | 2024-09-26 19:33 | External Medical Summary ---
Author Name Unknown Address Unknown Organization [id number]:LABORATORY [facility] [place] - [address] [facility] [address] Laboratory Report Ordering Provider Test Date Status LATIA FONTENOT 09/13/2024 05:58:00 Final Observation Date Value Abnormality Reference (Units ) Status BUN 09/13/2024 05:58:00 13 6-20 (mg/dL) Final Creatinine 09/13/2024 05:58:00 1.4 Above high normal 0.6-1.2 (mg/dL) Final Glomerular filtration rate/1.73 sq M.predicted [Volume Rate/Area] in Serum, Plasma or Blood by Creatinine-based formula (CKD-EPI) 09/13/2024 05:58:00 49 Below low normal >=60 (mL/min) Final eGFR is calculated based on the CKD-EPI 2020 equation. Sodium 09/13/2024 05:58:00 139 135-146 (m mol/L) Final Potassium 09/13/2024 05:58:00 Final Specimen too hemolyzed. Reor babar if needed. Cl 09/13/2024 05:58:00 105 98-107 (mm ol/L) Final CO2 09/13/2024 05:58:00 18 Below low normal 22- 32 (mmol/L) Final Anion gap 09/13/2024 05:58:00 16 Above high normal 7- 15 (mmol/L) Final Glucose 09/13/2024 05:58:00 120 70-120 (mg /dL) Final Calcium 09/13/2024 05:58:00 8.2 Below low normal 8.4 -10.2 (mg/dL) Final Performing Location LABORATORY [facility] [place] - [address] [place] [address]
--- OUTSIDE RECORDS SUMMARY | 2024-09-26 19:33 | External Medical Summary ---
Author Name Unknown Address Unknown Organization : Laboratory Report Ordering Provider Test Date Status LATIA FONTENOT 09/12/2024 12:51:27 Final Observation Date Value Abnormality Reference (Units ) Status Glucose Point of Care 09/12/2024 12:51:27 144 Above high normal 70-120 (mg/dL) Final Performing Location
--- OUTSIDE RECORDS SUMMARY | 2024-09-26 19:33 | External Medical Summary ---
Author Name Unknown Address Unknown Organization K01:[facility]ATORY [facility] - [address] [place] [address] Laboratory Report Ordering Provider Test Date Status LAVERNE ZAPIEN 09/12/2024 07:21:00 Final Observation Date Value Abnormality Reference (Units ) Status Magnesium 09/12/2024 07:21:00 2.1 1.5-2.6 (m g/dL) Final Performing Location [facility]ATORY [facility] - [address] [place] [address]
--- OUTSIDE RECORDS SUMMARY | 2024-09-26 19:33 | External Medical Summary ---
Author Name Unknown Address Unknown Organization : Laboratory Report Ordering Provider Test Date Status TIM FREEMAN 09/09/2024 11:59:51 Final Observation Date Value Abnormality Reference (Units ) Status Glucose Point of Care 09/09/2024 11:59:51 126 Above high normal 70-120 (mg/dL) Final Performing Location
--- OUTSIDE RECORDS SUMMARY | 2024-09-26 19:33 | External Medical Summary ---
Author Name Unknown Address Unknown Organization : Laboratory Report Ordering Provider Test Date Status LATIA FONTENOT 09/13/2024 11:48:49 Final Observation Date Value Abnormality Reference (Units ) Status Glucose Point of Care 09/13/2024 11:48:49 196 Above high normal 70-120 (mg/dL) Final Performing Location
--- OUTSIDE RECORDS SUMMARY | 2024-09-26 19:33 | External Medical Summary ---
Author Name Unknown Address Unknown Organization : Laboratory Report Ordering Provider Test Date Status TIM FREEMAN 09/11/2024 05:26:45 Final Observation Date Value Abnormality Reference (Units ) Status Glucose Point of Care 09/11/2024 05:26:45 126 Above high normal 70-120 (mg/dL) Final Performing Location
--- OUTSIDE RECORDS SUMMARY | 2024-09-26 19:34 | External Medical Summary ---
Author Name Unknown Address Unknown Organization [id number]:LABORATORY [facility] [place] - [address] [facility] [address] Laboratory Report Ordering Provider Test Date Status KING ORTEGA 09/05/2024 14:07:00 Final Anticoagulation may affect t esting. Refer to [facility] Test Catalog for a list of effects. Observation Date Value Abnormality Reference (Units ) Status aPTT panel - Platelet poor plasma 09/05/2024 14:07:00 30 21-38 (seconds) Final Performing Location LABORATORY [facility] [place] - [address] [place] [address]
--- OUTSIDE RECORDS SUMMARY | 2024-09-26 19:34 | External Medical Summary ---
Author Name Unknown Address Unknown Organization : Laboratory Report Ordering Provider Test Date Status TIM FREEMAN 09/08/2024 21:43:39 Final Observation Date Value Abnormality Reference (Units ) Status Glucose Point of Care 09/08/2024 21:43:39 153 Above high normal 70-120 (mg/dL) Final Performing Location
--- OUTSIDE RECORDS SUMMARY | 2024-09-26 19:34 | External Medical Summary ---
Author Name Unknown Address Unknown Organization K01:LABORATORY [facility] [place] - [address] [place] [address] Laboratory Report Ordering Provider Test Date Status KING ORTEGA 09/06/2024 06:35:00 Final Observation Date Value Abnormality Reference (Units ) Status BUN 09/06/2024 06:35:00 19 6-20 (mg/dL) Final Creatinine 09/06/2024 06:35:00 1.7 Above high normal 0.6-1.2 (mg/dL) Final Glomerular filtration rate/1.73 sq M.predicted [Volume Rate/Area] in Serum, Plasma or Blood by Creatinine-based formula (CKD-EPI) 09/06/2024 06:35:00 39 Below low normal >=60 (mL/min) Final eGFR is calculated based on the CKD-EPI 2020 equation. Sodium 09/06/2024 06:35:00 137 135-146 (m mol/L) Final Potassium 09/06/2024 06:35:00 3.7 3.5-5.1 (m mol/L) Final Cl 09/06/2024 06:35:00 105 98-107 (mm ol/L) Final CO2 09/06/2024 06:35:00 21 Below low normal 22- 32 (mmol/L) Final Anion gap 09/06/2024 06:35:00 11 7-15 (mmol /L) Final Glucose 09/06/2024 06:35:00 111 70-120 (mg /dL) Final Calcium 09/06/2024 06:35:00 8.1 Below low normal 8.4 -10.2 (mg/dL) Final Performing Location LABORATORY [facility] [place] - [address] [place] [address]
--- OUTSIDE RECORDS SUMMARY | 2024-09-26 19:34 | External Medical Summary | Summary of Care ---
Author Name Unknown Organization [facility] Address [address] [place] [address] Phone [phone] Care Team Providers Care Apprentice Architect Name Role Phone Unavailable Primary Care Provider Unavailabl e Reason for Visit * Auth/Cert Specialty Diagnoses / Procedures Referred By Petra t Referred To Contact Diagnoses spontaneous intracranial head bleed Johanne Alicea MD [address] [place] [address] Phone: tel: fax: Admissions, [facility] [address] [place] [address] Referral ID Status Reason Start Date Expiration Date Visits Re quested Visits Authorized [id number] Encounter Details Date Type Department Care Team (Latest Contact Info) Description 09/06/2024 12:35 PM EST - 09/06/2024 11:59 PM EST Hospital Encounter Cardiac Studies [facility] [address], [place] [id number] Discharge Disposition: Home - Self Care Allergies No known active allergiesdocumented as of this encounter (statuses as of 09/07/2024) Active Problems Problem Noted Date Diagnosed Date Ac isch multi vasc territories stroke 09/06/2024 Stroke-like symptoms 09/05/2024 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 documented as of this encounter (statuses as of 09/07/2024) Social History Tobacco Use Types Packs/Day Years [...] Ivett Wynne RN documented in this encounter Plan of Treatment Upcoming Encounters Date Type Department Care Team (Late st Contact Info) Description 11/29/2024 3:00 PM EDT Office Visit Neurosurgery, [place] [address] [place] [address] Haider Quinn MD [address] [place] [address] 01/04/2025 11:20 AM EDT Telemedicine Neurology [address] [place] [address] Sagar Ohara MD [address] [place] [address] [facility] [address] [facility] [place] [address] Health Maintenance Due Date Last Done Comments [...] Procedure Name Priority Date/Time Associated Diagnosis Comments ECHO, COMPLETE (2D), TRANS-THORACIC Routine 09/06/2024 2:10 PM EST Stroke (HCC) documented in this encounter Visit Diagnoses Diagnosis Stroke-like symptoms- Primary Other symptoms involving nervous and musculoskeletal systems Intraparenchymal hemorrhage of brain (HCC) Intracerebral hemorrhage Other ill-defined heart diseases documented in this encounter Administered Medications Inactive Administered Medications - up to 3 most recent administrations Medication Order MAR Action Action Date Dose Rate Site perflutren lipid microsphere inj SUSP 1.956 mg 1.956 mg, Intravenous, ONCE PRN Other, For Echo Only - Suboptimal Echo Images, Starting on Thu09/06/24 at 1410, Until Thu09/06/24 at 1609, For 2 hours, Administer IVP over 45 seconds, Cardiac Studies_HODHOVIndications:Stroke -like symptoms,Intraparenchymal hemorrhage of brain (HCC),Other ill-defined heart diseases Given 09/06/2024 2:11 PM EST 1.956 mg documented in this encounter Advance Directives * [...] the patient have Health Care Power of Social Media Senior Associate? No
--- OUTSIDE RECORDS SUMMARY | 2024-09-26 19:34 | External Medical Summary ---
Author Name Unknown Address Unknown Organization K01:LAB[facility]ATORY [facility] - [address] [place] [address] Laboratory Report Ordering Provider Test Date Status JULIO SHAFER 09/06/2024 06:35:00 Final Observation Date Value Abnormality Reference (Units ) Status Phosphate 09/06/2024 06:35:00 3.6 2.5-4.8 (m g/dL) Final Performing Location [facility] - [address] [place] [address]
--- OUTSIDE RECORDS SUMMARY | 2024-09-26 19:34 | External Medical Summary ---
Author Name Unknown Address Unknown Organization K01:[place] [place] [address] [place] [address] Laboratory Report Ordering Provider Test Date Status JULIO SHAFER 09/07/2024 05:32:00 Final Observation Date Value Abnormality Reference (Units ) Status Magnesium 09/07/2024 05:32:00 2.4 1.5-2.6 (m g/dL) Final Performing Location [facility] - [address] [place] [address]
--- OUTSIDE RECORDS SUMMARY | 2024-09-26 19:34 | External Medical Summary ---
Author Name Unknown Address Unknown Organization K01:[place] [place] [address] [place] [address] Laboratory Report Ordering Provider Test Date Status KING ORTEGA 09/05/2024 14:07:00 Final Observation Date Value Abnormality Reference (Units ) Status WBC, Total 09/05/2024 14:07:00 11.61 Above high normal 4.00-10.80 (K/uL) Final RBC 09/05/2024 14:07:00 4.04 4.50-5.25 (M/uL) Final Hemoglobin 09/05/2024 14:07:00 11.6 Below low normal 14.0-16.8 (g/dL) Final HCT 09/05/2024 14:07:00 35.6 Below low normal 40.0-48.4 (%) Final MCV 09/05/2024 14:07:00 88.1 82.0-99.5 (fL) Final MCH 09/05/2024 14:07:00 28.7 27.0-34.0 (pg) Final MCHC 09/05/2024 14:07:00 32.6 32.0-36.0 (g/dL) Final RDW 09/05/2024 14:07:00 13.0 11.5-15.5 (%) Final Platelets 09/05/2024 14:07:00 191 140-400 (K/uL) Final MPV 09/05/2024 14:07:00 10.7 6.6-11.1 (fL) Final Nucleated erythrocytes/100 leukocytes [Ratio] in Blood by Automated count 09/05/2024 14:07:00 0 <=0 (/100 WBCs) Final Performing Location [facility] [place] [address] [place] [address]
--- OUTSIDE RECORDS SUMMARY | 2024-09-26 19:34 | External Medical Summary | Summary of Care ---
Author Name Unknown Organization [facility] [address] [place] [address] Phone [phone] Care Team Providers Care Tractor Driver Name Role Phone Unavailable Primary Care Provider Unavailabl e Reason for Visit * Reason Comments Retrieval [facility] to [facility] Encounter Details Date Type Department Care Team (Latest Contact Info) Description 09/05/2024 12:30 PM EST Documentation [facility] [place] [address] [place] [address] 2, [facility] [address] [place] [address] Intraparenchymal hemorrhage of brain (HCC)*; Intraparenchymal hematoma of brain (HCC) [S06.33AA] Allergies No known active allergiesdocumented as of this encounter (statuses as of 09/06/2024) Active Problems Problem Noted Date Diagnosed Date Stroke-like symptoms 09/05/2024 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 [facility] [address] [place] [place] [address] Point of Automotive Welder (zip code required): Hospital - [facility] - [address] [place] [address] E; [place] [address] Destination (Specify Name/Address): [facility] - [address]; [place] [address] Patient transported to nearest facility (capable of mgmt for Pt's condition): YES Total number of Loaded Miles: 66.1 les Mode of Transport: Air Completed by: Blade Cortez documented in this encounter Plan of Treatment Health Maintenance Due Date Last Done Comments [...] hemorrhage of brain (HCC)- Primary Intracerebral hemorrhage Intraparenchymal hematoma of brain (HCC) [S06.33AA] documented in this encounter Advance Directives * [...] the patient have Health Care Power of Photocopying Equipment Repairer? No
--- OUTSIDE RECORDS SUMMARY | 2024-09-26 19:34 | External Medical Summary ---
Author Name Unknown Address Unknown Organization K01:[facility] - [address] [place] [address] Laboratory Report Ordering Provider Test Date Status JULIO SHAFER 09/08/2024 06:05:00 Final Observation Date Value Abnormality Reference (Units ) Status Phosphate 09/08/2024 06:05:00 4.0 2.5-4.8 (m g/dL) Final Performing Location [facility] - [address] [place] [address]
--- OUTSIDE RECORDS SUMMARY | 2024-09-26 19:34 | External Medical Summary ---
Author Name Unknown Address Unknown Organization : Laboratory Report Ordering Provider Test Date Status TIM FREEMAN 09/08/2024 16:16:30 Final Observation Date Value Abnormality Reference (Units ) Status Glucose Point of Care 09/08/2024 16:16:30 106 70-120 (mg/dL) Final Performing Location
--- OUTSIDE RECORDS SUMMARY | 2024-09-26 19:34 | External Medical Summary ---
Author Name Unknown Address Unknown Organization K01:[facility] [place] [facility] [address] [place] [address] Laboratory Report Ordering Provider Test Date Status KING ORTEGA 09/07/2024 05:32:00 Final Observation Date Value Abnormality Reference (Units ) Status WBC, Total 09/07/2024 05:32:00 10.64 4.00-10.80 (K/uL) Final RBC 09/07/2024 05:32:00 3.94 4.50-5.25 (M/uL) Final Hemoglobin 09/07/2024 05:32:00 11.1 Below low normal 14.0-16.8 (g/dL) Final HCT 09/07/2024 05:32:00 35.0 Below low normal 40.0-48.4 (%) Final MCV 09/07/2024 05:32:00 88.8 82.0-99.5 (fL) Final MCH 09/07/2024 05:32:00 28.2 27.0-34.0 (pg) Final MCHC 09/07/2024 05:32:00 31.7 32.0-36.0 (g/dL) Final RDW 09/07/2024 05:32:00 13.3 11.5-15.5 (%) Final Platelets 09/07/2024 05:32:00 196 140-400 (K/uL) Final MPV 09/07/2024 05:32:00 11.1 6.6-11.1 (fL) Final Nucleated erythrocytes/100 leukocytes [Ratio] in Blood by Automated count 09/07/2024 05:32:00 0 <=0 (/100 WBCs) Final Performing Location [facility] [place] [address] [place] [address]
--- OUTSIDE RECORDS SUMMARY | 2024-09-26 19:34 | External Medical Summary ---
Author Name Unknown Address Unknown Organization K01:[facility] [place] [address] [place] [address] Laboratory Report Ordering Provider Test Date Status KING ORTEGA 09/05/2024 14:07:00 Final Warfarin Therapy
INR: 2 .0-3.0 conventional anticoagulation
INR: 2.5- 3.5 high intensity anticoagulation Observation Date Value Abnormality Reference (Units ) Status PT 09/05/2024 14:07:00 14.3 11.6-15.2 (seconds) Final INR 09/05/2024 14:07:00 1.1 0.8-1.2 Final Performing Location [facility] [place] [address] [place] [address]
--- OUTSIDE RECORDS SUMMARY | 2024-09-26 19:34 | External Medical Summary ---
Author Name Unknown Address Unknown Organization K01:[facility] [place] [facility] [place]note 2[facility] [address] [place] [address] Laboratory Report Ordering Provider Test Date Status KING ORTEGA 09/07/2024 05:32:00 Final Observation Date Value Abnormality Reference (Units ) Status BUN 09/07/2024 05:32:00 17 6-20 (mg/dL) Final Creatinine 09/07/2024 05:32:00 1.7 Above high normal 0.6-1.2 (mg/dL) Final Glomerular filtration rate/1.73 sq M.predicted [Volume Rate/Area] in Serum, Plasma or Blood by Creatinine-based formula (CKD-EPI) 09/07/2024 05:32:00 40 Below low normal >=60 (mL/min) Final eGFR is calculated based on the CKD-EPI 2020 equation. Sodium 09/07/2024 05:32:00 139 135-146 (m mol/L) Final Potassium 09/07/2024 05:32:00 4.4 3.5-5.1 (m mol/L) Final Cl 09/07/2024 05:32:00 104 98-107 (mm ol/L) Final CO2 09/07/2024 05:32:00 21 Below low normal 22- 32 (mmol/L) Final Anion gap 09/07/2024 05:32:00 14 7-15 (mmol /L) Final Glucose 09/07/2024 05:32:00 131 Above high normal 70 -120 (mg/dL) Final Calcium 09/07/2024 05:32:00 8.4 8.4-10.2 ( mg/dL) Final Performing Location [facility] [place] [address] [place] [address]
--- OUTSIDE RECORDS SUMMARY | 2024-09-26 19:34 | External Medical Summary ---
Author Name Unknown Address Unknown Organization K01:[facility] [place] [address] [place] [address] Laboratory Report Ordering Provider Test Date Status JORDANKING PRICILLA 09/05/2024 14:07:00 Final Observation Date Value Abnormality Reference (Units ) Status ABO 09/05/2024 14:07:00 O Final RH 09/05/2024 14:07:00 Negative Final Performing Location [facility] - [address] [place] [address]
--- OUTSIDE RECORDS SUMMARY | 2024-09-26 19:34 | External Medical Summary ---
Author Name Unknown Address Unknown Organization K01:[facility] [place] [address] [facility] [address] Laboratory Report Ordering Provider Test Date Status DR TRINOBRADEN 09/07/2024 05:32:00 Final Observation Date Value Abnormality Reference (Units ) Status Triglyceride 09/07/2024 05:32:00 99 <=174 ( mg/dL) Final Triglyceride Reference Range s (mg/dL):
<150 Acceptable
150-174 Borderline high
175-499 High
>=500 Very high Cholesterol 09/07/2024 05:32:00 99 <200 (mg /dL) Final Total Cholesterol Reference Ranges (mg/dL):
<200 Desirable
200-239 Borderline high
>=240 High HDL 09/07/2024 05:32:00 37 Below low normal >39 (mg/dL) Final HDL Cholesterol Reference Ra nges (mg/dL):
>=60 High (Desirable)
<50 Low (Undesirable) For Females
<40 Low (Undesirable) For Males NON-HDL CHOLESTEROL 09/07/2024 05:32:00 62 <=159 (mg/dL) Final Non-HDL Cholesterol Referenc e Range (mg/dL):
<100 Target level for high risk ASCVD patient
<130 Optimal for general population
130-159 Near optimal for general population
160-189 Borderline High
190-219 High
>=220 Very High LDL, (calculated) 09/07/2024 05:32:00 42 <= 129 (mg/dL) Final LDL Cholesterol Reference Ra nges (mg/dL):
<70 Target level for high risk ASCVD patient
<100 Optimal for general population
100-129 Near optimal for general population
130-159 Borderline high
160-189 High
>=190 Very high Performing Location [facility] [place] [address] [facility] [address]
--- OUTSIDE RECORDS SUMMARY | 2024-09-26 19:34 | External Medical Summary ---
Author Name Unknown Address Unknown Organization K01:[facility] [place] [address] [place] [address] Laboratory Report Ordering Provider Test Date Status KING ORTEGA 09/08/2024 06:05:00 Final Observation Date Value Abnormality Reference (Units ) Status BUN 09/08/2024 06:05:00 18 6-20 (mg/dL) Final Creatinine 09/08/2024 06:05:00 1.6 Above high normal 0.6-1.2 (mg/dL) Final Glomerular filtration rate/1.73 sq M.predicted [Volume Rate/Area] in Serum, Plasma or Blood by Creatinine-based formula (CKD-EPI) 09/08/2024 06:05:00 42 Below low normal >=60 (mL/min) Final eGFR is calculated based on the CKD-EPI 2020 equation. Sodium 09/08/2024 06:05:00 136 135-146 (m mol/L) Final Potassium 09/08/2024 06:05:00 4.7 3.5-5.1 (m mol/L) Final Cl 09/08/2024 06:05:00 106 98-107 (mm ol/L) Final CO2 09/08/2024 06:05:00 20 Below low normal 22- 32 (mmol/L) Final Anion gap 09/08/2024 06:05:00 10 7-15 (mmol /L) Final Glucose 09/08/2024 06:05:00 191 Above high normal 70 -120 (mg/dL) Final Calcium 09/08/2024 06:05:00 8.1 Below low normal 8.4 -10.2 (mg/dL) Final Performing Location [facility] [place] [address] [place] [place] [address]
--- OUTSIDE RECORDS SUMMARY | 2024-09-26 19:34 | External Medical Summary ---
Author Name Unknown Address Unknown Organization K01:LABORATORY [facility] [place] - [address] [place] [address] Laboratory Report Ordering Provider Test Date Status KING ORTEGA 09/05/2024 14:07:00 Final Observation Date Value Abnormality Reference (Units ) Status Albumin 09/05/2024 14:07:00 4.1 3.8-5.0 (g/dL) Final AST (Aspartate aminotransferase) 09/05/2024 14:07:00 17 10-50 (U/L) Final Results may be falsely eleva roxie due to hemolysis. Alk Phos 09/05/2024 14:07:00 85 35-130 (U/ L) Final ALT (Alanine aminotransferase) 09/05/2024 14:07:00 15 10-50 (U/L) Final Bilirubin, Total 09/05/2024 14:07:00 0.6 <=1 .2 (mg/dL) Final Bilirubin, Direct 09/05/2024 14:07:00 0.2 0. 0-0.3 (mg/dL) Final Result may be falsely decrea sed due to hemolysis. Protein 09/05/2024 14:07:00 6.8 6.0-8.3 (g /dL) Final Performing Location LABORATORY [facility] [place] - [address] [place] [address]
--- OUTSIDE RECORDS SUMMARY | 2024-09-26 19:34 | External Medical Summary ---
Author Name Unknown Address Unknown Organization K01:LABORATORY [facility] [place] [address] [place] [address] Laboratory Report Ordering Provider Test Date Status KING ORTEGA 09/05/2024 13:57:01 Final Observation Date Value Abnormality Reference (Units ) Status Methicillin resistant Staphylococcus aureus (MRSA) DNA [Presence] in Nose by NIDHI with probe detection 09/05/2024 13:57:01 Negative Negative Final No Methicillin resistant Sta phylococcus aureus detected by PCR (amplified probe). Performing Location LABORATORY [facility] [place] - [address] [place] [address]
--- OUTSIDE RECORDS SUMMARY | 2024-09-26 19:34 | External Medical Summary ---
Author Name Unknown Address Unknown Organization K01:[facility] [place] - [facility] [address] [place] [address] Laboratory Report Ordering Provider Test Date Status KING ORTEGA 09/06/2024 06:35:00 Final Observation Date Value Abnormality Reference (Units ) Status WBC, Total 09/06/2024 06:35:00 8.64 4.00-10.80 (K/uL) Final RBC 09/06/2024 06:35:00 3.54 4.50-5.25 (M/uL) Final Hemoglobin 09/06/2024 06:35:00 10.0 Below low normal 14.0-16.8 (g/dL) Final HCT 09/06/2024 06:35:00 31.1 Below low normal 40.0-48.4 (%) Final MCV 09/06/2024 06:35:00 87.9 82.0-99.5 (fL) Final MCH 09/06/2024 06:35:00 28.2 27.0-34.0 (pg) Final MCHC 09/06/2024 06:35:00 32.2 32.0-36.0 (g/dL) Final RDW 09/06/2024 06:35:00 13.2 11.5-15.5 (%) Final Platelets 09/06/2024 06:35:00 147 140-400 (K/uL) Final MPV 09/06/2024 06:35:00 10.8 6.6-11.1 (fL) Final Nucleated erythrocytes/100 leukocytes [Ratio] in Blood by Automated count 09/06/2024 06:35:00 0 <=0 (/100 WBCs) Final Performing Location LABORATORY [facility] [place] - [address] [place] [address]
--- OUTSIDE RECORDS SUMMARY | 2024-09-26 19:34 | External Medical Summary ---
Author Name Unknown Address Unknown Organization [id number]:[facility] [place] [address] [facility] [address] Laboratory Report Ordering Provider Test Date Status KING ORTEGA 09/05/2024 14:56:00 Final Observation Date Value Abnormality Reference (Units ) Status Clot formation [Time] in Blood by Thromboelastography 09/05/2024 14:56:00 6.4 2.5-8.3 (minutes) Final Clot strength in Blood by Thromboelastography 09/05/2024 14:56:00 1.5 0.5-3.7 (minutes) Final Clot angle in Blood by Thromboelastography 09/05/2024 14:56:00 69.6 46.8-78.4 (degrees) Final Maximum clot firmness [Length] in Blood by Thromboelastography 09/05/2024 14:56:00 71.5 50.6-72.5 (mm) Final Coagulation index in Blood b y Thromboelastography 09/05/2024 14:56:00 1.5 -3.0-3.0 Final Clot Lysis [Length fraction] in Blood by Thromboelastography --30 minutes post maximum clot amplitude 09/05/2024 14:56:00 0.0 0.0-7.5 (%) Final Performing Location [facility] [place] [address] [place] [address]
--- OUTSIDE RECORDS SUMMARY | 2024-09-26 19:34 | External Medical Summary ---
Author Name Unknown Address Unknown Organization [id number]:LABORATORY [facility] [place] - [address] [place] [address] Laboratory Report Ordering Provider Test Date Status JULIO HSAFER 09/06/2024 06:35:00 Final Observation Date Value Abnormality Reference (Units ) Status Magnesium 09/06/2024 06:35:00 1.8 1.5-2.6 (m g/dL) Final Performing Location [facility] - [address] [place] [address]
--- OUTSIDE RECORDS SUMMARY | 2024-09-26 19:34 | External Medical Summary ---
Author Name Unknown Address Unknown Organization : Laboratory Report Ordering Provider Test Date Status TIM FREEMAN 09/08/2024 13:13:24 Final Observation Date Value Abnormality Reference (Units ) Status Glucose Point of Care 09/08/2024 13:13:24 122 Above high normal 70-120 (mg/dL) Final Performing Location
--- OUTSIDE RECORDS SUMMARY | 2024-09-26 19:34 | External Medical Summary ---
Author Name Unknown Address Unknown Organization [id number]:LAB[facility]ATORY [facility] [place] - [address] [place] [address] Laboratory Report Ordering Provider Test Date Status KING ORTEGA 09/05/2024 14:07:00 Final Observation Date Value Abnormality Reference (Units ) Status Phosphate 09/05/2024 14:07:00 3.3 2.5-4.8 (m g/dL) Final Performing Location [facility] - [address] [place] [address]
--- OUTSIDE RECORDS SUMMARY | 2024-09-26 19:34 | External Medical Summary ---
Author Name Unknown Address Unknown Organization K01:[facility] [place] [address] [place] [address] Laboratory Report Ordering Provider Test Date Status KING ORTEGA 09/05/2024 14:56:00 Final Observation Date Value Abnormality Reference (Units ) Status Clot formation [Time] in Blood by Thromboelastography 09/05/2024 14:56:00 6.2 2.5-8.3 (minutes) Final Clot strength in Blood by Thromboelastography 09/05/2024 14:56:00 1.5 0.5-3.7 (minutes) Final Clot angle in Blood by Thromboelastography 09/05/2024 14:56:00 68.6 46.8-78.4 (degrees) Final Maximum clot firmness [Length] in Blood by Thromboelastography 09/05/2024 14:56:00 69.3 50.6-72.5 (mm) Final Coagulation index in Blood b y Thromboelastography 09/05/2024 14:56:00 1.3 -3.0-3.0 Final Clot Lysis [Length fraction] in Blood by Thromboelastography --30 minutes post maximum clot amplitude 09/05/2024 14:56:00 0.2 0.0-7.5 (%) Final Performing Location LABORATORY [facility] [place] - [facility] [place] [address]
--- OUTSIDE RECORDS SUMMARY | 2024-09-26 19:34 | External Medical Summary ---
Author Name Unknown Address Unknown Organization K01:[facility] [place] [address] [facility] [address] Laboratory Report Ordering Provider Test Date Status HAROON JAMESON 09/07/2024 05:32:00 Final Observation Date Value Abnormality Reference (Units ) Status HbA1C 09/07/2024 05:32:00 6.9 Above high normal 4. 0-5.6 (%) Final The use of HbA1c to monitor glycemic status is based on normal hemoglobin and HbA composition. This test should not be used in patients with abnormal hemoglobin that affects the half life of the red blood cell or the in vivo glycation rates. Glucose, estimated average 09/07/2024 05:32:00 151 Above high normal <126 (mg/dL) Shad spring Performing Location LAB[facility]ATORY [facility] [place] [address] [facility] [address]
--- OUTSIDE RECORDS SUMMARY | 2024-09-26 19:34 | External Medical Summary ---
Author Name Unknown Address Unknown Organization K01:LABORATORY [facility] [place] - [address] [place] [address] Laboratory Report Ordering Provider Test Date Status KING ORTEGA 09/05/2024 14:07:00 Final Observation Date Value Abnormality Reference (Units ) Status Magnesium 09/05/2024 14:07:00 1.9 1.5-2.6 (m g/dL) Final Performing Location [facility] - [address] [place] [address]
--- OUTSIDE RECORDS SUMMARY | 2024-09-26 19:34 | External Medical Summary | Summary of Care ---
Author Name Unknown Organization [facility] [address] [place] [address] Phone [phone] Care Team Providers Care Labor Mediator Name Role Phone ProJeremy MD Primary Care Provider [phone]- [phone] Reason for Visit * Reason Comments Retrieval [facility]na [facility]ier[facility] ER to [facility] * Auth/Cert Specialty Diagnoses / Procedures Referred By Contac t Referred To Contact [email or web address] [address] [place] [address] Referral ID Status Reason Start Date Expiration Date Visits Re quested Visits Authorized [id number] Encounter Details Date Type Department Care Team (Latest Contact Info) Description 09/05/2024 12:30 PM EST [facility]ation [email or web address] [address] [place] [address] 2, [email or web address] [address] [place], [place] [phone] Intraparenchymal hemorrhage of brain (HCC)*; Intraparenchymal hematoma [...] documented in this encounter Progress Notes * Balde Cortez - 09/05/2024 3:47 PM EST MEDICARE AMBULANCE INFORMATION SHEET Patient Admitted as an Inpatient: yes Certifying Physician/Ordering Service:[facility] [place] - Tien Xie M.D. [facility] [address] [place] [address] Point of Workday Manager (zip code required): Hospital - [facility] - [address]; [place] [address] Destination (Specify Name/Address): [facility] - [address] [place] [address] Patient transported to nearest facility (capable of mgmt for Pt's condition): YES Total number of Loaded Miles: 66.1 les Mode of Transport: Air Completed by: Blade Cortez documented in this encounter Plan of Treatment Upcoming Encounters Date Type Department Care Team (Late st Contact Info) Description 11/29/2024 3:00 PM EDT Office Visit Neurosurgery, [place] [address], [place] [phone] Haider Quinn MD [address], [place] [phone] 01/04/2025 11:20 AM EDT Telemedicine Neurology [address] [place] [address] Sagar Ohara MD [address] [place] [address] [facility] [address] [place] [address] Health Maintenance Due Date Last Done Comments [...] the patient have Health Care Power of Supervisor Pressing Department? No Care Teams Labor Mediator Relationship Specialty Start Date End Date Pro, Jeremy Lanza MD [address] [place] [facility] [place] [address] PCP - General Internal Medicine 09/07/24 documented as of this encounter
--- OUTSIDE RECORDS SUMMARY | 2024-09-26 19:34 | External Medical Summary ---
Author Name Unknown Address Unknown Organization K01:LABORATORY [facility] [place] - [address] [address] Laboratory Report Ordering Provider Test Date Status KING ORTEGA 09/05/2024 14:07:00 Final Observation Date Value Abnormality Reference (Units ) Status SYNC LEUKOCYTES IN BLOOD BY AUTOMATED COUNT 09/05/2024 14:07:00 11.61 Above high normal 4.00-10.80 (K/uL) Final Segs 09/05/2024 14:07:00 86.3 Above high normal 40.0-75.0 (%) Final Lymphs % 09/05/2024 14:07:00 9.0 Below low normal 18.0-42.0 (%) Final Monos 09/05/2024 14:07:00 3.4 1.0-11.0 (%) Final Eosinophils 09/05/2024 14:07:00 0.5 0.0-6.0 (%) Final Basos 09/05/2024 14:07:00 0.3 0.0-2.0 (%) Final Immature Granulocyte, Percent 09/05/2024 14:07:00 0.5 0.0-2.0 (%) Final Absolute Segs 09/05/2024 14:07:00 10.00 Above high normal 1.80-7.70 (K/uL) Final Lymphs, absolute 09/05/2024 14:07:00 1.05 1.00-4.80 (K/ul) Final Monos, Abs 09/05/2024 14:07:00 0.40 0.00-1.10 (K/uL) Final Eos, Abs 09/05/2024 14:07:00 0.06 0.00-0.70 (K/uL) Final Basos, Abs 09/05/2024 14:07:00 0.04 0.00-0.20 (K/uL) Final Immature Granulocytes, Number 09/05/2024 14:07:00 0.06 0.00-0.20 (K/uL) Final Performing Location LABORATORY [facility] [place] - [facility] [address] [facility] [address]
--- OUTSIDE RECORDS SUMMARY | 2024-09-26 19:34 | External Medical Summary ---
Author Name Unknown Address Unknown Organization K01:LABORATORY [facility] [place] - [address] [place] [address] Laboratory Report Ordering Provider Test Date Status KING ORTEGA 09/08/2024 06:05:00 Final Observation Date Value Abnormality Reference (Units ) Status WBC, Total 09/08/2024 06:05:00 6.93 4.00-10.80 (K/uL) Final RBC 09/08/2024 06:05:00 3.48 4.50-5.25 (M/uL) Final Hemoglobin 09/08/2024 06:05:00 10.2 Below low normal 14.0-16.8 (g/dL) Final HCT 09/08/2024 06:05:00 32.6 Below low normal 40.0-48.4 (%) Final MCV 09/08/2024 06:05:00 93.7 82.0-99.5 (fL) Final MCH 09/08/2024 06:05:00 29.3 27.0-34.0 (pg) Final MCHC 09/08/2024 06:05:00 31.3 32.0-36.0 (g/dL) Final RDW 09/08/2024 06:05:00 13.2 11.5-15.5 (%) Final Platelets 09/08/2024 06:05:00 116 Below low normal 140-400 (K/uL) Final MPV 09/08/2024 06:05:00 11.1 6.6-11.1 (fL) Final Nucleated erythrocytes/100 leukocytes [Ratio] in Blood by Automated count 09/08/2024 06:05:00 0 <=0 (/100 WBCs) Final Performing Location LABORATORY [facility] [place] - [address] [place] [address]
--- OUTSIDE RECORDS SUMMARY | 2024-09-26 19:34 | External Medical Summary ---
Author Name Unknown Address Unknown Organization K01:LABORATORY [facility] [place] - [address] [place] [address] Laboratory Report Ordering Provider Test Date Status KING ORTEGA 09/05/2024 14:07:00 Final Observation Date Value Abnormality Reference (Units ) Status BUN 09/05/2024 14:07:00 20 6-20 (mg/dL) Final Creatinine 09/05/2024 14:07:00 1.7 Above high normal 0.6-1.2 (mg/dL) Final Glomerular filtration rate/1.73 sq M.predicted [Volume Rate/Area] in Serum, Plasma or Blood by Creatinine-based formula (CKD-EPI) 09/05/2024 14:07:00 39 Below low normal >=60 (mL/min) Final eGFR is calculated based on the CKD-EPI 2020 equation. Sodium 09/05/2024 14:07:00 136 135-146 (m mol/L) Final Potassium 09/05/2024 14:07:00 4.3 3.5-5.1 (m mol/L) Final Cl 09/05/2024 14:07:00 102 98-107 (mm ol/L) Final CO2 09/05/2024 14:07:00 20 Below low normal 22- 32 (mmol/L) Final Anion gap 09/05/2024 14:07:00 14 7-15 (mmol /L) Final Glucose 09/05/2024 14:07:00 169 Above high normal 70 -120 (mg/dL) Final Calcium 09/05/2024 14:07:00 8.8 8.4-10.2 ( mg/dL) Final Performing Location LAB[facility]ATORY [facility] [place] - [address] [place] [address]
--- OUTSIDE RECORDS SUMMARY | 2024-09-26 19:34 | External Medical Summary ---
Author Name Unknown Address Unknown Organization K01:LABORATORY [facility] [place] - [address] [place] [address] Laboratory Report Ordering Provider Test Date Status HAROON JAMESON 09/07/2024 05:32:00 Final Observation Date Value Abnormality Reference (Units ) Status Troponin T 09/07/2024 05:32:00 62 Above high normal < =22 (ng/L) Final Performing Location LABORATORY [facility] [place] - [address] [place] [address]
[2024-09-26] MEDS: INSULIN ASPART PER UNIT CHARGE SC SCH (19:35)
[2024-09-26] MEDS: MAGNESIUM SULFATE / D5W 1 GM/100 ML BAG IV SCH (19:42)
[2024-09-26] MEDS: OLANZapine ZYDIS 5 MG ORALLY DIS. TAB PO ONE (19:44)
[2024-09-26] MEDS: DORZOLAMIDE/TIMOLOL 22.3/6.8MG/ML 10 ML BTL OPB SCH (21:22)
[2024-09-26] MEDS: ATORVASTATIN 40 MG TAB PO SCH (21:22)
[2024-09-26] MEDS: HALOPERIDOL LACTATE 5 MG/ML 1 ML VIAL IV PRN (21:49)
[2024-09-26] MEDS: ACETAMINOPHEN 1,000 MG/100 ML VIAL IV STA (22:37)
[2024-09-27] MEDS: OLANZapine ZYDIS 5 MG ORALLY DIS. TAB PO PRN (02:42)
[2024-09-27] MEDS: HALOPERIDOL LACTATE 5 MG/ML 1 ML VIAL IV STA (04:12)
[2024-09-27] MEDS: LORazepam 2 MG/1 ML VIAL IV STA (05:18)
--- OUTSIDE RECORDS SUMMARY | 2024-09-27 05:53 | External Medical Summary | Summary of Care ---
Author Name Unknown Organization [facility] Address [address] [place] [address] Phone [phone] Care Team Providers Care Financial Planner Name Role Phone Pro, Jeremy Lanza MD Primary Care Provider +1- [phone] Reason for Visit * Reason Onset Date Comments Shelter Visit - Transfer to ER 09/26/2024 Encounter Details Date Type Department Care Team (Late st Contact Info) Description 09/26/2024 8:00 AM EST Shelter Visit [facility] [place] [address] [place] [address] Esther Matute PA-C [address] [place] [address] EFFIE (acute kidney injury) ([facility])*; Urinary retention; Delirium due to multiple etiologies, acute, hyperactive; HFrEF (heart failure with reduced ejection fraction) ([facility]) Allergies No known active allergiesdocumented as [...] Active Dulaglutide 4.5 MG/0.5ML Subcutaneous Solution Auto-injector ([employer]) Inject 4.5 mg under the skin every [...] Sign Reading Time Taken Comments Blood Pressure 140/84 09/26/2024 9:55 AM EST Pulse 113 09/26/2024 9:55 AM EST Temperature 36.3 C (97.4 F) 09/26/2024 9:55 AM ES T Respiratory Rate 18 09/26/2024 9:55 AM EST Oxygen Saturation 92% 09/26/2024 9:55 AM EST room air Inhaled Oxygen Concentration - - Weight - - Height - - Body Mass Index - - documented in this encounter Functional Status * [...] Progress Notes * Esther Matute PA-C - 09/26/2024 8:00 AM EST Name: Goran Brandt Date of : 1935 This note pertains to care provided at [facility]. Please see facility record for original note. This note is not to be edited or addended in [employer]. Editing or addending needs to occur in the facility's medical record. 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 Renal function worsening over the past week and creatinine has now trended from 2.3 to 2.9 over thepast three days. Baseline 1.4-1.6. Lisinopril and metformin remain on hold, lasix and spironolactone were held x 2 days but restarted yesterday due to CHF/weight gain. He has been very agitated over the weekend requiring several doses of PRN depakote, extra trazodone, and one dose of IM diphenhydramine due to agitation/restlessness/combativeness. He was found to be retaining about 450 ml urine on at least one occasion, but was combative with staff attempts at straight cath and this it was unable to be completed. He cannot provide any reliable history at this time due to cognitive impairment. He has had no apparent fever, vomiting, diarrhea, cough, nor hypoxia. PMH: Patient Active Problem List Diagnosis Intraparenchymal hemorrhage of brain ([facility]) HFrEF (heart failure with reduced ejection fraction) ([facility]) Dyslipidemia, goal LDL below 70 Delirium due to multiple etiologies, acute, hyperactive Encephalopathy acute History of CAD (coronary artery disease) Atrial fibrillation ([facility]) Depression History of CVA (cerebrovascular accident) Hypertension goal BP (blood pressure) < 140/90 Stage 3b chronic kidney disease (CKD) ([facility]) S/P coronary artery stent placement 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 Review of Systems: Per HPI, limited from pt due to cognitive impairment OBJECTIVE: BP 140/84 | Pulse 113 | Temp 36.3 C (97.4 F) | Resp 18 | SpO2 92% Comment: room air General: no distress and currently sitting in wheelchair, keeps eyes closed, does not verbalize, but is drinking out of a cup, moving both arms equally Heart: irregularly irregular Lungs: chest symmetric with normal AP diameter, no chest deformities noted, no chest wall tenderness, lungs clear to auscultation Abdomen: abdomen soft, non-tender, normal bowel sounds, no masses or organomegaly, no rebound or guarding, no CVA tenderness, and unable to assess bladder distension due to positioning/clothing Extremities: trace BLE edema Neuro Exam: nonverbal, does not follow simple commands, keeps eyes closed, moving both hands/arms and drinking from a cup during the visit Skin: pink, warm, dry Component Latest Ref Rng 09/20/2024 09/23/2024 09/26/2024 WBC 4.00 - 10.80 K/uL 10.22 Neutrophils % 40.0 - 75.0 % 71.1 Lymphocytes % 18.0 - 42.0 % 14.7 (L) Monocytes % 1.0 - 11.0 % 10.0 Eosinophils % 0.0 - 6.0 % 4.1 Basophils % 0.0 - 2.0 % 0.1 Absolute Neutrophils 1.80 - 7.70 K/uL 7.27 Absolute Lymphocytes 1.00 - 4.80 K/ul 1.50 Absolute Monocytes 0.00 - 1.10 K/uL 1.02 Absolute Eosinophils 0.00 - 0.70 K/uL 0.42 Absolute Basophils 0.00 - 0.20 K/uL 0.01 BUN 6 - 20 mg/dL 8 14 24 (H) CREATININE 0.6 - 1.2 mg/dL 1.6 (H) 2.3 (H) 2.9 (H) EGFR >=60 mL/min 40 (L) 27 (L) 21 (L) SODIUM 135 - 146 mmol/L 139 139 138 POTASSIUM 3.5 - 5.1 mmol/L 3.7 4.5 4.5 CHLORIDE 98 - 107 mmol/L 102 99 101 CO2 22 - 32 mmol/L 26 25 25 ANION GAP 7 - 15 mmol/L 11 15 12 GLUCOSE 70 - 120 mg/dL 160 (H) 158 (H) 231 (H) CALCIUM 8.4 - 10.2 mg/dL 8.5 8.8 8.3 (L) WBC 4.00 - 10.80 K/uL 10.22 RBC 4.50 - 5.25 M/uL 3.90 HGB 14.0 - 16.8 g/dL 11.2 (L) HCT 40.0 - 48.4 % 35.3 (L) MCV 82.0 - 99.5 fL 90.5 MCH 27.0 - 34.0 pg 28.7 MCHC 32.0 - 36.0 g/dL 31.7 RDW 11.5 - 15.5 % 14.1 PLT 140 - 400 K/uL 254 MPV 6.6 - 11.1 fL 11.2 Reticulocyte Percent 0.80 - 1.90 % 2.32 (H) Absolute Reticulocyte 31.3 - 100.1 K/uL 90.9 Immature Reticuloctye Fraction 2.5 - 20.6 % 16.6 Reticulocyte Hemoglobin 29.7 - 37.4 pg 31.1 Digoxin Level 0.5 - 1.1 ng/mL 1.0 TSH 0.27 - 4.20 uIU/mL 1.38 Legend: (H) High (L) Low Results reviewed with son ASSESSMENT/PLAN: [facility] (outside system) reviewed for vital signs, nursing notes, CODE STATUS, and most up to date medication list Discussed management with other clinician during the visit (facility RN) EFFIE (acute kidney injury) ([facility]) (Primary) Urinary retention Delirium due to multiple etiologies, acute, hyperactive HFrEF (heart failure with reduced ejection fraction) (HCC) Suggest ER eval due to worsening renal function and suspected urinary retention, he has been very agitated and I am unsure he would tolerate attempts at IV hydration in this setting Call placed to son to review labs, current condition, recommendations, son in agreement with transfer to higher level of care Follow up: as needed 48 total minutes were spent in this visit. [...] 09/29/2024 9:30 AM EST Office Visit [facility], [facility] [address] [address] Ksenia Arenas CRNP [address] [place] [place] [address] 11/29/2024 3:00 PM EDT Office Visit Neurosurgery, [address] [place] [address] Haider Quinn MD [address] [place] [address] 01/04/2025 11:20 AM EDT Telemedicine Neurology [address] [place] [address] Sagar Ohara MD [address] [place] [address] [facility] [address] [place] [address] Health Maintenance Due Date Last Done Comments [...] injury) (HCC)- Primary Acute kidney failure, unspecified Urinary retention Retention of urine, unspecified Delirium due to multiple etiologies, acute, hyperactive HFrEF (heart failure with reduced ejection fraction) (HCC) documented in this encounter Advance Directives Documents on File Type Date Recorded Patient Manager Of Exhibitions And Collections Expl anation Advance Directives and Living Will 09/20/2024 signed on 05/15/2021 ADVANCE DIRECTIVE / LIVING WILL Power of Corporate Associate Attorney 09/20/2024 signed on 05/15/2021 POWER OF AGRICULTURE LABORATORY TECHNICIAN * No Code (Latest Code Status on [...] the patient have Health Care Power of Corporate Associate Attorney? No Care Teams Financial Planner Relationship Specialty Start Date End Date ProJeremy MD [address] [place] [address] PCP - General Internal Medicine 08/27/24 documented as of this encounter"
--- NOTE | 2024-09-27 07:22 | Hospitalist Progress Note ---
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 PT has been at [facility] since this past , while there is had issues with delirium as well as an up trending creatinine. PT became increasingly agitated and confused overnight, requiring administration of Haldol, olanzapine, and ativan. Per nursing, O2 saturation dipped to 74% ORA and PT was placed on 6L O2 via face mask. Per tele, PT remained in AFIB overnight with HR ranging from 110s to 130s with PVCs. ROS could not be completed due to delirium. BP increased to 178/84, HR increased to 145, RR increased to 26. PE remarkable for disorientation to person, place, and time, garbled speech, mild agitation, confusion, labored respirations, and crackles appreciated in the right lower lobe. PT's state has declined since he was seen yesterday. Differential diagnosis for increased oxygen demand includes heart failure, pneumonia, or result of psych medication administration last night. Creatine appears to be downtrending. AFIB was persistent over night and heart rate remains elevated with telemetry noting PVCs as well. Blood sugar remains elevated. PLAN #Increased Oxygen Demand - 40mg IV Lasix for lung crackles - Continue supplemental oxygen 6L PRN via face mask, wean as tolerated - Consider testing for pneumonia given crackles, labored respirations, and increased O2 demand with possible etiology of aspiration or respiratory depression - Consider VBG and chest X-ray if lasix unsuccessful #CKD - Cr is down trending and at 2.52 today - Bladder scan PRN - Pimentel catheter started due to agitation - Continue monitor CBC and CMP with AM labs #AFIB - Discontinue home dose of 75mg metoprolol PO due to agitation in favor of IV metoprolol 5mg Q6 - Continued with IV metoprolol 5mg PRN for HR >120 - Added Digoxin 125mcg IV - Ordered Digoxin level - Continue Telemetry in PCU for AFIB - EKG with chest pain PRN - Holding anticoagulation for now give recent CVA. [id number] Score = 7, HAS- BLED Score = 6. Will discuss anticoagulation with neurology on 09/27 #T2DM - A1c is 7.1 - Hold basal insulin due to pt not eating - Continue sliding scale insulin CF 25mg/dL/unit CR 15g/unit - Hold glipizide, dulaglutide, and metformin #Metabolic Encephalopathy / Delirium - Added valproate 250mg IV q8h for agitation - Holding olanzapine 5mg due to unable to take PO meds at this time - Consider Haloperidol 5mg IV PRN, if insufficient. - Use of Ativan IV sparingly for agitation over night for patient and staff safety - Soft restraints in place for patient safety while in increased agitated state - Urinalysis/culture for further workup for encephalopathy - Head CT w/out contrast for further workup of encephalopathy - Collect collateral information from Pt's son either in-person or by phone - Recommend fall precautions #Hypomagnesmia - IV magnesium given 09/26 - Obtain mg level with AM labs Chronic conditions: Hold lisinopril po 5 mg Hold finasteride po 5 mg Hold atorvastatin 40mg po Hold Ferrous sulfate 325mg po Diet: DM2, carb control diet, Easy to chew diet DVT prophylaxis: SCDs Code: DNR/DNI Dispo: PCU/tele Admission and Anticipated Discharge Date Admission Date: September 26, 2024 Supervising Physician Co-Signing Physician Notes Patient was seen and examined independently I discussed the case with Darlin Whitman PGY1 I reviewed pertinent past medical social family history and also the plan of care and agree with the plan of care. Patient was seen and he was particularly confused asking for a cookie, he is delirious, he has abrasions across his legs worse on his left knee he complains of some abdominal pain Physically he is spontaneously moving arms and legs he is loosely following commands Remains significantly agitated and difficult to control soft limb restraints were required to prevent him injuring himself staff are pulling out tubes and lines He has an irregular cardiac rhythm an elevated uncontrolled rate His lungs are with reasonable bilateral air movement His abdomen was with normal active bowel sounds he was voluntarily guarding and is uncomfortable to exam but it difficult to assess given his level of delirium His extremities have abrasions with some erythema about his both lower legs and anterior shins consistent with falling Repeat CT scan due to confusion does no change from previous imaging shows regression or evolution of healing of his left hemorrhagic stroke for which she was admitted to [facility] EKG shows new onset atrial fibrillation Reviewed CBC reviewed chemistry Encephalopathy of unclear etiology current infectious sources appear negative with exception of possible skin source from his legs blood cultures will be obtained urinalysis is negative urine culture will not be obtained. Chest x-ray is clear. For delirium we will control his behavior with scheduled twice daily oral olanzapine ODT and IV Depakote. He is also on trazodone and Seroquel will not institute those at this time as she is unreliably taking oral intake EFFIE on CKD patient is mildly volume depleted by clinical exam his delirium likely impedes his intake he was given a liter of fluid in the ER will give an additional liter and follow his renal parameters Atrial fibrillation, persistent previous problem intermittently taken metoprolol according to staff at correction scheduling metoprolol IV not instituting anticoagulation therapy at this time he is also on digoxin and augmented dose was given in the afternoon 09/27 and remains on 25 mcg Diabetes patient's oral intake will be unclear we are holding his glipizide dulaglutide and metformin will use sliding scale insulin Once his delirium encephalopathy improved we will consider PT OT evaluation Any exceptions will be noted below Subjective The patient is a 89-year-old gentleman with a relevant history of stage 3 CKD, HTN, T2DM, CAD, GA, cardiac arrest, and recent CVA who presents emergency department with a chief complaint of worsening kidney function on outpatient lab work. PT has been at [facility] since this past , while there is had issues with delirium as well as an up trending creatinine. This morning, the patient was seen around 0730. Nursing reported agitation and increased confusion overnight along with increased oxygen demand. Tele reported continued AFIB overnight with HR ranging from 110s to 130s with PVCs. Early this morning, heart rate ranged from 150s to 160s. Ordered PRN metoprolol had not been given. Could not converse with the PT due to worsened confusion and agitation. Review of Systems Review of Systems: ROS could not be completed due to confusion/agitation Physical Exam Physical Exam: General: PT is in distress and agitated. PT is not oriented to self, place, or time. Speech is garbled. Heart: RRR, no rubs, murmurs, or gallops. Lungs: Respirations are labored. PT is on 6L of O2 via face mask. Crackles noted on the right lower lobe. Peripheries: No peripheral edema Results & Data Results & Data Vital Signs (Past 12 Hours) Vital Signs Temp Pulse Pulse Resp BP Pulse Ox O2 Del Method 09/27/24 02:13 36.4 C L 97 H 18 159/71 H 94 Room Air 09/26/24 23:27 108 H 09/26/24 22:49 36.7 C 105 H 16 178/63 H 97 Room Air Laboratory Results 09/27/24 09/27/24 09/27/24 11:23 09:40 08:13 WBC 10.03 RBC 3.95 L Hgb 11.3 L Hct 35.1 L MCV 88.9 MCH 28.6 MCHC 32.2 RDW Std Deviation 44.6 RDW Coeff of Brittany 13.8 Plt Count 238 MPV 10.6 Immature Gran % (Auto) 0.3 Neut % (Auto) 82.5 Lymph % (Auto) 8.1 Glenn % (Auto) 6.6 Eos % (Auto) 2.1 Baso % (Auto) 0.4 Neut # (Auto) 8.28 H Lymph # (Auto) 0.81 L Glenn # (Auto) 0.66 H Eos # (Auto) 0.21 Baso # (Auto) 0.04 Immature Gran # (Auto) 0.03 Sodium 142 Potassium 4.5 Chloride 106 Carbon Dioxide 27 Anion Gap 9 BUN 24 H Creatinine 2.52 H D Est Cr Clr Drug Dosing 23.1 eGFR 24.03 BUN/Creatinine Ratio 9.5 L Glucose 212 H POC Glucose 196 H Estimat Average Glucose 157 Hemoglobin A1c 7.1 H Calcium 8.6 Total Bilirubin 0.6 AST 17 ALT 11 Alkaline Phosphatase 74 Troponin I High Sens Total Protein 6.4 Albumin 3.6 Globulin 2.8 Albumin/Globulin Ratio 1.3 Urine Color Urine Appearance Urine pH Ur Specific [place] Urine Protein Urine Glucose (UA) Urine Ketones Urine Blood Urine Nitrite Urine Bilirubin Urine Urobilinogen Ur Leukocyte Esterase Urine WBC (Auto) Urine RBC (Auto) U Hyaline Cast (Auto) U Epithel Cells (Auto) Urine Bacteria (Auto) Digoxin 0.8 Adenovirus (PCR) B. pertussis DNA (PCR) B.parapertussis DNA PCR C. pneumoniae DNA (PCR) Coronavirus OC43 (PCR) Coronavirus HKU1 (PCR) Coronavirus 229E (PCR) SARS-CoV-2 (PCR) Coronavirus NL63 (PCR) Human Metapneumovir PCR Influenza Type A (PCR) Influenza Type B (PCR) M. pneumoniae (PCR) Parainfluenza 1 (PCR) Parainfluenza 2 (PCR) Parainfluenza 3 (PCR) Parainfluenza 4 (PCR) RSV (PCR) Entero/Rhino (PCR) 09/27/24 09/26/24 09/26/24 07:30 20:12 13:25 WBC RBC Hgb Hct MCV MCH MCHC RDW Std Deviation RDW Coeff of Brittany Plt Count MPV Immature Gran % (Auto) Neut % (Auto) Lymph % (Auto) Glenn % (Auto) Eos % (Auto) Baso % (Auto) Neut # (Auto) Lymph # (Auto) Glenn # (Auto) Eos # (Auto) Baso # (Auto) Immature Gran # (Auto) Sodium Potassium Chloride Carbon Dioxide Anion Gap BUN Creatinine Est Cr Clr Drug Dosing eGFR BUN/Creatinine Ratio Glucose POC Glucose 215 H 205 H Estimat Average Glucose Hemoglobin A1c Calcium Total Bilirubin AST ALT Alkaline Phosphatase Troponin I High Sens 53.5 H* Total Protein Albumin Globulin Albumin/Globulin Ratio Urine Color Urine Appearance Urine pH Ur Specific [place] Urine Protein Urine Glucose (UA) Urine Ketones Urine Blood Urine Nitrite Urine Bilirubin Urine Urobilinogen Ur Leukocyte Esterase Urine WBC (Auto) Urine RBC (Auto) U Hyaline Cast (Auto) U Epithel Cells (Auto) Urine Bacteria (Auto) Digoxin Adenovirus (PCR) B. pertussis DNA (PCR) B.parapertussis DNA PCR C. pneumoniae DNA (PCR) Coronavirus OC43 (PCR) Coronavirus HKU1 (PCR) Coronavirus 229E (PCR) SARS-CoV-2 (PCR) Coronavirus NL63 (PCR) Human Metapneumovir PCR Influenza Type A (PCR) Influenza Type B (PCR) M. pneumoniae (PCR) Parainfluenza 1 (PCR) Parainfluenza 2 (PCR) Parainfluenza 3 (PCR) Parainfluenza 4 (PCR) RSV (PCR) Entero/Rhino (PCR) 09/26/24 09/26/24 12:44 11:10 WBC RBC Hgb Hct MCV MCH MCHC RDW Std Deviation RDW Coeff of Brittany Plt Count MPV Immature Gran % (Auto) Neut % (Auto) Lymph % (Auto) Glenn % (Auto) Eos % (Auto) Baso % (Auto) Neut # (Auto) Lymph # (Auto) Glenn # (Auto) Eos # (Auto) Baso # (Auto) Immature Gran # (Auto) Sodium Potassium Chloride Carbon Dioxide Anion Gap BUN Creatinine Est Cr Clr Drug Dosing eGFR BUN/Creatinine Ratio Glucose POC Glucose Estimat Average Glucose Hemoglobin A1c Calcium Total Bilirubin AST ALT Alkaline Phosphatase Troponin I High Sens Total Protein Albumin Globulin Albumin/Globulin Ratio Urine Color Yellow Urine Appearance Clear Urine pH 6.5 Ur Specific [place] 1.009 Urine Protein Trace H Urine Glucose (UA) Negative Urine Ketones Negative Urine Blood Negative Urine Nitrite Negative Urine Bilirubin Negative Urine Urobilinogen Negative Ur Leukocyte Esterase Negative Urine WBC (Auto) 0-5 Urine RBC (Auto) 0-2 U Hyaline Cast (Auto) 0-2 U Epithel Cells (Auto) 0-2 Urine Bacteria (Auto) None Seen Digoxin Adenovirus (PCR) Not Detected B. pertussis DNA (PCR) Not Detected B.parapertussis DNA PCR Not Detected C. pneumoniae DNA (PCR) Not Detected Coronavirus OC43 (PCR) Not Detected Coronavirus HKU1 (PCR) Not Detected Coronavirus 229E (PCR) Not Detected SARS-CoV-2 (PCR) Not Detected Coronavirus NL63 (PCR) Not Detected Human Metapneumovir PCR Not Detected Influenza Type A (PCR) Not Detected Influenza Type B (PCR) Not Detected M. pneumoniae (PCR) Not Detected Parainfluenza 1 (PCR) Not Detected Parainfluenza 2 (PCR) Not Detected Parainfluenza 3 (PCR) Not Detected Parainfluenza 4 (PCR) Not Detected RSV (PCR) Not Detected Entero/Rhino (PCR) Not Detected Diagnostic Findings Head CT 09/27/24 07:55 CT head/brain wo con CLINICAL HISTORY: 89 years-old Male with Change in Mental Status. Acutely altered mental status TECHNIQUE: Multiple axial CT images of the head were obtained without contrast. A dose lowering technique was utilized adhering to the principles of ALARA. CT DOSE: 1874.62 mGy.cm COMPARISON: September 26, 2024, 09/05/2024 FINDINGS: Study is motion degraded. No acute intracranial hemorrhage, midline shift or mass effect is present. As per discussed there are expected evolution or changes of the intraparenchymal hemorrhage within the left temporal lobe since CT of September 05, 2024. Size and attenuation of the hemorrhage has significantly decreased study, however is generally unchanged from yesterday's exam. Adjacent hypodensity is similar to prior exam. Minimal associated mass effect again noted. Ventricular system is unremarkable. The basal cisterns are patent. 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 Encephalomalacia within left parietal lobe is unchanged. There are no findings to suggest acute dural sinus thrombosis or acute territorial infarct. There are no calvarial fractures. As before, the frontal sinuses are opacified. IMPRESSION: 1. No acute intracranial findings. Mild motion artifact. 2. Stable exam from yesterday's study with expected evolution of the left temporal lobe intraparenchymal hemorrhage shown on CT of September 05, 2024. Adjacent hypodensity is similar to prior exam. This could represent vasogenic edema or a subacute infarct. ACT 112: Negative or not required by law. The above report was generated using voice recognition software. It may contain grammatical, syntax or spelling errors. Electronically signed by: Andrew Kaplan M.D. 09/27/2024 8:41 AM Medications Administered Atorvastatin Calcium (Atorvastatin 40 Mg Tab) 40 mg PO QPM [facility] Stop: 10/26/24 20:59 Last Admin: 09/26/24 21:22 Dose: Not Given Documented By: SANTIAGO Dorzolamide/Timolol (Dorzolamide/Timolol 22.3/6.8mg/Ml 10 Ml Btl) 1 drops OPB BID AUDRA Stop: 10/26/24 20:59 Last Admin: 09/26/24 21:22 Dose: Not Given Documented By: SANTIAGO Haloperidol Lactate (Haloperidol Lactate 5 Mg/Ml 1 Ml Vial) 5 mg IV Q6H PRN PRN Reason: Agitation Stop: 10/26/24 18:02 Last Admin: 09/26/24 21:49 Dose: 5 mg Documented By: SANTIAGO Insulin Aspart (Insulin Aspart Per Unit Charge) 0 units SC ACHS AUDRA Stop: 10/26/24 18:02 Last Admin: 09/26/24 21:00 Dose: 3 units Documented By: Dae Co-signed By: FRANCA Admin: 09/26/24 19:35 Dose: Not Given Documented By: SANTIAGO Olanzapine (Olanzapine Zydis 5 Mg Orally Dis. Tab) 5 mg PO BID PRN PRN Reason: Agitation Stop: 10/26/24 18:02 Last Admin: 09/27/24 02:42 Dose: 5 mg Documented By: SANTIAGO (4) Afib Atrial fibrillation type: paroxysmal Qualified Code(s): I48.0 - Paroxysmal atrial fibrillation
[2024-09-27] MEDS: METOPROLOL TARTRATE 1 MG/ML VIAL IV STA (08:12)
[2024-09-27 08:28] LABS: Basophils # (auto) 0.04 K/uL (0.00-0.20); Basophils % (auto) 0.4 %; Eosinophils # (auto) 0.21 K/uL (0.00-0.50); Eosinophils % (auto) 2.1 %; Hematocrit (blood only) 35.1 % (42.0-52.0); Hemoglobin 11.3 g/dl (14.0-18.0); Immature Granulocytes # (auto) 0.03 K/uL (0.01-0.20); Immature Granulocytes % (auto) 0.3 %; Lymphocytes # (auto) 0.81 K/uL (1.20-3.40); Lymphocytes % (auto) 8.1 %; Mean Corpuscular Hemoglobin 28.6 pg (25.0-34.0); Mean Corpuscular Hgb Conc 32.2 g/dL (32.0-36.0); Mean Corpuscular Volume 88.9 fL (80.0-100.0); Mean Platelet Volume 10.6 fL (9.4-12.4); Monocytes # (auto) 0.66 K/uL (0.11-0.59); Monocytes % (auto) 6.6 %; Neutrophils # (auto) 8.28 K/uL (1.40-6.50); Neutrophils % (auto) 82.5 %; Platelet Count 238 K/uL (130-400); RDW Coefficient of Variation 13.8 % (11.5-14.5); RDW Standard Deviation 44.6 fL (36.4-46.3); Red Blood Count 3.95 M/uL (4.70-6.10); White Blood Count 10.03 K/ul (4.8-10.8)
[2024-09-27] MEDS: FUROSEMIDE 40 MG/4 ML VIAL IV ONE (08:32)
--- NOTE | 2024-09-27 08:43 | CT Scan Report ---
CT head/brain wo con CLINICAL HISTORY: 89 years-old Male with Change in Mental Status. Acutely altered mental status TECHNIQUE: Multiple axial CT images of the head were obtained without contrast. A dose lowering tech nique was utilized adhering to the principles of ALARA. CT DOSE: 1874.62 mGy.cm COMPARISON: September 26, 2024, 09/05/2024 FINDINGS: Study is motion degraded. No acute intracranial hemorrhage, midline shift or mass effect is present. As per discussed there are expected evolution or changes of the intraparenchymal hemorrhage within th e left temporal lobe since CT of September 05, 2024. Size and attenuation of the hemorrhage has signif icantly decreased study, however is generally unchanged from yesterday's exam. Adjacent hypodensity i s similar to prior exam. Minimal associated mass effect again noted. Ventricular system is unremarkab le. The basal cisterns are patent. 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 Encephalomalac ia within left parietal lobe is unchanged. There are no findings to suggest acute dural sinus thrombo sis or acute territorial infarct. There are no calvarial fractures. As before, the frontal sinuses ar e opacified. IMPRESSION: 1. No acute intracranial findings. Mild motion artifact. 2. Stable exam from yesterday's study with expected evolution of the left temporal lobe intraparenchy mal hemorrhage shown on CT of September 05, 2024. Adjacent hypodensity is similar to prior exam. This could represent vasogenic edema or a subacute infarct. ACT 112: Negative or not required by law. The above report was generated using voice recognition software. It may contain grammatical, syntax o r spelling errors. Electronically signed by: Andrew Kaplan M.D. 09/27/2024 8:41 AM
[2024-09-27 08:48] LABS: Albumin Globulin Ratio 1.3 (0.9-2); Albumin Level 3.6 gm/dl (3.4-5.0); BUN Creatinine Ratio 9.5 (10-20); Bilirubin,Total 0.6 mg/dl (0.2-1.0); Calcium 8.6 mg/dl (8.6-10.3); Creatinine Clr Calc Pharmacy 23.1 ml/min; Globulin 2.8 gm/dl (2.5-4.0); Potassium 4.5 mmol/L (3.5-5.1); Total Protein 6.4 gm/dl (6.0-8.3)
[2024-09-27] MEDS ORDERED: METOPROLOL SUCC 25MG EXT REL TAB PO SCH (09:00)
[2024-09-27 09:34] LABS: Estimated Average Glucose 157 mg/dl; Hemoglobin A1C 7.1 % (4.5-5.6)
[2024-09-27] MEDS: METOPROLOL TARTRATE 50 MG TAB PO SCH (10:26)
[2024-09-27] MEDS: DIGOXIN 125 MCG in SYRINGE 9.5 ML IV ONE (10:43)
[2024-09-27] MEDS: CHOLECALCIFEROL 25 MCG (1000 UNITS) TAB PO SCH (10:47)
[2024-09-27] MEDS: FERROUS SULFATE 325 MG TAB PO SCH (10:48)
[2024-09-27] MEDS: PANTOprazole 40 MG TAB PO SCH (10:48)
[2024-09-27] MEDS: CLOPIDOGREL BISULFATE 75 MG TAB PO SCH (11:59)
[2024-09-27] MEDS: lisinopril 5 MG TAB PO SCH (11:59)
[2024-09-27] MEDS: FINASTERIDE 5 MG TAB PO SCH (11:59)
[2024-09-27] MEDS: METOPROLOL TARTRATE 1 MG/ML VIAL IV SCH (12:02)
[2024-09-27] MEDS: METOPROLOL TARTRATE 1 MG/ML VIAL IV PRN (14:24)
--- NOTE | 2024-09-27 18:29 | Billing Data ---
Date of Service September 27, 2024 Coding Level of Care Code 59839 SUB INP/OBS CARE
[2024-09-27] MEDS: VALPROATE SOD 250 MG in DEXTROSE 5% 50 ML IV SCH (18:39)
[2024-09-27] MEDS: ACETAMINOPHEN 1,000 MG/100 ML VIAL IV PRN (20:05)
[2024-09-27] MEDS: OLANZapine ZYDIS 5 MG ORALLY DIS. TAB PO SCH (20:24)
[2024-09-27 23:24] LABS: Appearance Urine Cloudy (Clear); Bacteria Urine Automated 1+ (None Seen); Bilirubin Urine Negative (Negative); Blood Urine 2+ (Negative); Color Urine Yellow; Epithelial Cell Urine Auto 0-2 /hpf (0-2); Glucose Urine UA Negative (Negative); Ketones Urine Negative (Negative); Leukocyte Esterase Urine 2+ (Negative); Nitrite Urine Negative (Negative); Protein Urine 2+ (Negative); RBC Urine Automated >20 /hpf (0-2); Specific Gravity Urine 1.017 (1.000-1.030); Urobilinogen Urine Negative (Negative); WBC Urine Automated >50 /hpf (0-5)
[2024-09-28] MEDS: ONDANSETRON INJ 2 MG/ML 2 ML VIAL IV PRN (00:01)
[2024-09-28 06:33] LABS: Basophils # (auto) 0.05 K/uL (0.00-0.20); Basophils % (auto) 0.5 %; Eosinophils # (auto) 0.12 K/uL (0.00-0.50); Eosinophils % (auto) 1.2 %; Hematocrit (blood only) 34.6 % (42.0-52.0); Hemoglobin 11.3 g/dl (14.0-18.0); Immature Granulocytes # (auto) 0.04 K/uL (0.01-0.20); Immature Granulocytes % (auto) 0.4 %; Lymphocytes # (auto) 0.71 K/uL (1.20-3.40); Lymphocytes % (auto) 7.1 %; Mean Corpuscular Hemoglobin 28.8 pg (25.0-34.0); Mean Corpuscular Hgb Conc 32.7 g/dL (32.0-36.0); Mean Platelet Volume 10.6 fL (9.4-12.4); Monocytes # (auto) 0.57 K/uL (0.11-0.59); Monocytes % (auto) 5.7 %; Neutrophils # (auto) 8.58 K/uL (1.40-6.50); Neutrophils % (auto) 85.1 %; Platelet Count 248 K/uL (130-400); RDW Standard Deviation 44.5 fL (36.4-46.3); Red Blood Count 3.93 M/uL (4.70-6.10); White Blood Count 10.07 K/ul (4.8-10.8)
[2024-09-28 06:50] LABS: BUN Creatinine Ratio 9.3 (10-20); Calcium 8.5 mg/dl (8.6-10.3); Creatinine Clr Calc Pharmacy 26.4 ml/min; Magnesium 1.4 mg/dl (1.7-2.4); Potassium 4.5 mmol/L (3.5-5.1)
--- NOTE | 2024-09-28 07:00 | Hospitalist Progress Note ---
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 PT has been at [facility] since this past , while there is had issues with delirium as well as an up trending creatinine. PT remained agitated and confused overnight. PT remained on 3L O2 via nasal canula. Per tele, PT remained in AFIB overnight with HR in the 110s. ROS could not be completed due to somnolence and confusion. BP has decreased to normal range. PE only remarkable for mild psychomotor agitation while sleeping. PLAN #AFIB - AFIB with elevated HR remains per tele - Continue IV metoprolol 5mg Q6 -Consider increase to 7.5mg Q6 or switch to amiodarone - Recommend IV metoprolol PRN - Continue home dose of Digoxin 125mcg IV - Digoxin level is 0.8 on 09/27 - Continue Telemetry in PCU for AFIB - EKG with chest pain PRN - Hold anticoagulation for now give recent CVA. [id number] Score = 7, HAS-BLED Score = 6. Will discuss anticoagulation with neurology on 09/27 #Increased Oxygen Demand Due to HFrEF - Creatinine continues downtrending and is 2.18 today in setting of IV lasix given 09/27 suggesting increased O2 demand due to HF - Continue 40 Lasix IV for lung crackles given on 09/27/2024. - Supplemental oxygen decreased to 3L PRN via nasal canula - Consider chest X-ray for further evaluation of crackles and labored respirations - Consider testing for pneumonia given crackles, labored respirations, and increased O2 demand with possible etiology of aspiration or respiratory depression - Consider VBG and chest X-ray if lasix unsuccessful #Abnormal urynalysis - PT unable to endorse symptoms due to confusion - Recommend urine culture based on UA from 09/27 for potential UTI - culture positive for E. coli - Begin IV ceftriaxone 1g x 5 days #Metabolic Encephalopathy / Delirium - Continue Valproate IV 250mg q8h - Continue olanzapine 5mg PO BID PRN, if pt able to take PO - Haloperidol 5mg IV PRN, if insufficient. - Consider IV Ativan if pt or staff safety is at risk - Consider benzo reversal if continues to be obtunded - Consider obtaining thiamine level and if low, administer thiamine 500units IV - Hold for now for clarity regarding encephalopathy given tx with ceftriaxone - Consider psych/neuro consultation for further work up for encephalopathy - Recommend fall precautions #Hypomagnesmia - magnesium level remains low, even lower than first measurement - administer additional 1g IV magnesium x 2 bags - Re check Mag in AM labs #Abnormal urinalysis - PT unable to endorse symptoms due to confusion - Recommend urine culture based on UA from 09/27 for potential UTI - culture positive for E. coli - Begin IV ceftriaxone 1g x 5 days - Recommend waiting on abx treatment until culture returns #CKD - Pimentel in place - Creatinine continues to downtrend - Bladder scan PRN - Continue monitor CBC and CMP with AM labs #T2DM - BSG ACHS - Holding basal insulin at 10 units BID - Continue sliding scale insulin starting 09/27 CF 25mg/dL/unit CR 15g/unit - Hold glipizide, dulaglutide, and metformin Chronic conditions: Holding lisinopril po 5 mg Holding finasteride po 5 mg Holding atorvastatin 40mg po Holding Ferrous sulfate 325mg po Diet: DM2, carb control diet, Easy to chew diet DVT prophylaxis: SCDs Code: DNR/DNI Dispo: PCU/tele Admission and Anticipated Discharge Date Admission Date: September 26, 2024 Supervising Physician Co-Signing Physician Notes Patient was seen and examined independently I discussed the case with Darlin Whitman PGY1 I reviewed pertinent past medical social family history and also the plan of care and agree with the plan of care. Patient is still delirious/encephalopathic however he is slightly improved today after having scheduled olanzapine. He remains in atrial fibrillation with elevated heart rates. He does have a low-grade temperature but is discovered to have an E. coli urinary tract infection sensitivities are pending could be the cause of his worsening encephalopathy Reviewed CBC reviewed chemistry Encephalopathy of unclear etiology considering E. coli UTI present on admission on ceftriaxone watch for surveillance for ESBL. For delirium we will control his behavior with scheduled twice daily oral olanzapine ODT and IV Depakote. He is also on trazodone and Seroquel will not institute those at this time as she is unreliably taking oral intake EFFIE on CKD this is improving Atrial fibrillation, persistent previous problem intermittently taken metoprolol according to staff at [facility] scheduling metoprolol IV not instituting anticoagulation therapy at this time he is also on digoxin is therapeutic and remains on scheduled dose of intravenous metoprolol dosing also as needed dose needed his infection will not have good rate control until this is completely treated Diabetes patient's oral intake will be unclear we are holding his glipizide dulaglutide and metformin will use sliding scale insulin Once his delirium encephalopathy improved we will consider PT OT evaluation Any exceptions will be noted below Subjective The patient is a 89-year-old gentleman with a relevant history of stage 3 CKD, HTN, T2DM, CAD, TX, cardiac arrest, and recent CVA who presents emergency department with a chief complaint of worsening kidney function on outpatient lab work. PT has been at [facility] since this past , while there is had issues with delirium as well as an up trending creatinine. This morning, the patient was seen around 0730. Nursing reported agitation and increased confusion overnight. Patient was screaming for the majority of the night. Tele reported continued AFIB overnight with HR remaining in the 110s. Early this morning, heart rate ranged from 150s to 160s. Nursing reported that yesterday, PT refused to leave the bathroom and needed to be removed by male nursing staff, prompting insertion of Pimentel catheter. This morning, the patient was seen around 7:30 and was asleep at the time. PT remained in soft restraints. Could not converse with patient due to somnolence/confusion. Review of Systems Review of Systems: ROS could not be completed due to somnolence/confusion/agitation. Physical Exam Physical Exam: General: PT was asleep at the time of physical exam. Occasional physical agitation was noticed during examination. Orientation and speech could not be assessed due to somnolence. Heart: RRR, no rubs, murmurs, or gallops. Lungs: Respirations are labored. PT is on 3L of O2 via nasal canula. Abd: hyperactive bowel sounds appreciated. Peripheries: No peripheral edema Results & Data Results & Data Vital Signs (Past 12 Hours) Vital Signs Temp Pulse Pulse Resp BP BP BP 09/28/24 06:22 139 H 09/28/24 06:02 36.3 C L 123 H 18 128/73 09/28/24 04:59 142 H 09/28/24 04:32 136 H 182/84 H 09/28/24 02:17 37.8 C H 117 H 20 182/84 H 09/28/24 02:01 114 H 09/28/24 01:46 113 H 09/27/24 22:05 36.5 C 92 H 20 172/75 H 09/27/24 21:57 09/27/24 20:22 111 H 156/92 H 09/27/24 19:28 126 H 169/90 H 09/27/24 19:07 37.9 C H 135 H 20 169/90 H Pulse Ox O2 Del Method O2 Flow Rate 09/28/24 06:22 09/28/24 06:02 94 Nasal Cannula 3 09/28/24 04:59 09/28/24 04:32 09/28/24 02:17 94 Nasal Cannula 3 09/28/24 02:01 09/28/24 01:46 09/27/24 22:05 95 Nasal Cannula 3 09/27/24 21:57 Nasal Cannula 3 09/27/24 20:22 09/27/24 19:28 09/27/24 19:07 94 Nasal Cannula 4 Laboratory Results 09/28/24 09/27/24 09/27/24 05:54 22:58 20:04 WBC 10.07 RBC 3.93 L Hgb 11.3 L Hct 34.6 L MCV 88.0 MCH 28.8 MCHC 32.7 RDW Std Deviation 44.5 RDW Coeff of Brittany 14.0 Plt Count 248 MPV 10.6 Immature Gran % (Auto) 0.4 Neut % (Auto) 85.1 Lymph % (Auto) 7.1 [place] % (Auto) 5.7 Eos % (Auto) 1.2 Baso % (Auto) 0.5 Neut # (Auto) 8.58 H Lymph # (Auto) 0.71 L [place] # (Auto) 0.57 Eos # (Auto) 0.12 Baso # (Auto) 0.05 Immature Gran # (Auto) 0.04 Sodium 140 Potassium 4.5 Chloride 107 Carbon Dioxide 26 Anion Gap 7 BUN 20 Creatinine 2.16 H D Est Cr Clr Drug Dosing 26.4 eGFR 28.91 BUN/Creatinine Ratio 9.3 L Glucose 187 H POC Glucose 191 H Estimat Average Glucose Hemoglobin A1c Calcium 8.5 L Magnesium 1.4 L Total Bilirubin AST ALT Alkaline Phosphatase Total Protein Albumin Globulin Albumin/Globulin Ratio Urine Color Yellow Urine Appearance Cloudy A Urine pH 8.0 H Ur Specific Costilla 1.017 Urine Protein 2+ H Urine Glucose (UA) Negative Urine Ketones Negative Urine Blood 2+ H Urine Nitrite Negative Urine Bilirubin Negative Urine Urobilinogen Negative Ur Leukocyte Esterase 2+ H Urine WBC (Auto) >50 H Urine RBC (Auto) >20 H U Hyaline Cast (Auto) 3-5 H U Epithel Cells (Auto) 0-2 Urine Bacteria (Auto) 1+ H Digoxin 09/27/24 09/27/24 09/27/24 16:30 11:23 09:40 WBC RBC Hgb Hct MCV MCH MCHC RDW Std Deviation RDW Coeff of Brittany Plt Count MPV Immature Gran % (Auto) Neut % (Auto) Lymph % (Auto) [place] % (Auto) Eos % (Auto) Baso % (Auto) Neut # (Auto) Lymph # (Auto) [place] # (Auto) Eos # (Auto) Baso # (Auto) Immature Gran # (Auto) Sodium Potassium Chloride Carbon Dioxide Anion Gap BUN Creatinine Est Cr Clr Drug Dosing eGFR BUN/Creatinine Ratio Glucose POC Glucose 175 H 196 H Estimat Average Glucose Hemoglobin A1c Calcium Magnesium Total Bilirubin AST ALT Alkaline Phosphatase Total Protein Albumin Globulin Albumin/Globulin Ratio Urine Color Urine Appearance Urine pH Ur Specific Costilla Urine Protein Urine Glucose (UA) Urine Ketones Urine Blood Urine Nitrite Urine Bilirubin Urine Urobilinogen Ur Leukocyte Esterase Urine WBC (Auto) Urine RBC (Auto) U Hyaline Cast (Auto) U Epithel Cells (Auto) Urine Bacteria (Auto) Digoxin 0.8 09/27/24 09/27/24 08:13 07:30 WBC 10.03 RBC 3.95 L Hgb 11.3 L Hct 35.1 L MCV 88.9 MCH 28.6 MCHC 32.2 RDW Std Deviation 44.6 RDW Coeff of Brittany 13.8 Plt Count 238 MPV 10.6 Immature Gran % (Auto) 0.3 Neut % (Auto) 82.5 Lymph % (Auto) 8.1 [place] % (Auto) 6.6 Eos % (Auto) 2.1 Baso % (Auto) 0.4 Neut # (Auto) 8.28 H Lymph # (Auto) 0.81 L [place] # (Auto) 0.66 H Eos # (Auto) 0.21 Baso # (Auto) 0.04 Immature Gran # (Auto) 0.03 Sodium 142 Potassium 4.5 Chloride 106 Carbon Dioxide 27 Anion Gap 9 BUN 24 H Creatinine 2.52 H D Est Cr Clr Drug Dosing 23.1 eGFR 24.03 BUN/Creatinine Ratio 9.5 L Glucose 212 H POC Glucose 215 H Estimat Average Glucose 157 Hemoglobin A1c 7.1 H Calcium 8.6 Magnesium Total Bilirubin 0.6 AST 17 ALT 11 Alkaline Phosphatase 74 Total Protein 6.4 Albumin 3.6 Globulin 2.8 Albumin/Globulin Ratio 1.3 Urine Color Urine Appearance Urine pH Ur Specific Costilla Urine Protein Urine Glucose (UA) Urine Ketones Urine Blood Urine Nitrite Urine Bilirubin Urine Urobilinogen Ur Leukocyte Esterase Urine WBC (Auto) Urine RBC (Auto) U Hyaline Cast (Auto) U Epithel Cells (Auto) Urine Bacteria (Auto) Digoxin Medications Administered Atorvastatin Calcium (Atorvastatin 40 Mg Tab) 40 mg PO QPM [facility] Stop: 10/26/24 20:59 Last Admin: 09/27/24 20:13 Dose: Not Given Documented By: Admin: 09/26/24 21:22 Dose: Not Given Documented By: SANTIAGO Dorzolamide/Timolol (Dorzolamide/Timolol 22.3/6.8mg/Ml 10 Ml Btl) 1 drops OPB BID [facility] Stop: 10/26/24 20:59 Last Admin: 09/27/24 20:10 Dose: 1 drops Documented By: Admin: 09/27/24 08:44 Dose: 1 drops Documented By: Admin: 09/26/24 21:22 Dose: Not Given Documented By: SANTIAGO Ferrous Sulfate (Ferrous Sulfate 325 Mg Tab) 325 mg PO Q2D@0900 [facility] Stop: 10/27/24 08:59 Last Admin: 09/27/24 10:48 Dose: Not Given Documented By: MEHUL Finasteride (Finasteride 5 Mg Tab) 5 mg PO DAILY [facility] Stop: 10/27/24 08:59 Last Admin: 09/27/24 11:59 Dose: Not Given Documented By: MEHUL Haloperidol Lactate (Haloperidol Lactate 5 Mg/Ml 1 Ml Vial) 5 mg IV Q6H PRN PRN Reason: Agitation Stop: 10/26/24 18:02 Last Admin: 09/27/24 23:49 Dose: 5 mg Documented By: Admin: 09/27/24 13:21 Dose: 5 mg Documented By: Admin: 09/26/24 21:49 Dose: 5 mg Documented By: SANTIAGO Valproic Acid 250 mg/ Dextrose 52.5 mls @ 52.5 mls/hr IV Q8H [facility] Stop: 10/27/24 17:59 Last Infusion: 09/28/24 02:41 Dose: Infused Documented By: Admin: 09/28/24 01:41 Dose: 52.5 mls/hr Documented By: Infusion: 09/27/24 19:40 Dose: Infused Documented By: Admin: 09/27/24 18:39 Dose: 52.5 mls/hr Documented By: MEHUL Acetaminophen (Ofirmev) 1,000 mg in 100 mls @ 400 mls/hr IV Q8H PRN PRN Reason: Pain or Fever Stop: 09/30/24 19:51 Last Infusion: 09/28/24 04:46 Dose: Infused Documented By: Admin: 09/28/24 04:31 Dose: 400 mls/hr Documented By: Infusion: 09/27/24 20:23 Dose: Infused Documented By: Admin: 09/27/24 20:05 Dose: 400 mls/hr Documented By: ALTON Insulin Aspart (Insulin Aspart Per Unit Charge) 0 units SC ACHS [facility] Stop: 10/26/24 18:02 Last Admin: 09/27/24 20:17 Dose: 3 units Documented By: ALTON Co-signed By: TUSHAR Admin: 09/27/24 17:20 Dose: 2 units Documented By: MEHUL Co-signed By: LORENA Admin: 09/27/24 12:08 Dose: 3 units Documented By: MEHUL Co-signed By: LORENA Admin: 09/27/24 08:38 Dose: 3 units Documented By: MEHUL Co-signed By: LORENA Admin: 09/26/24 21:00 Dose: 3 units Documented By: SANTIAGO Co-signed By: FRANCA Admin: 09/26/24 19:35 Dose: Not Given Documented By: SANTIAGO Lisinopril (Lisinopril 5 Mg Tab) 5 mg PO DAILY [facility] Stop: 10/27/24 08:59 Last Admin: 09/27/24 11:59 Dose: Not Given Documented By: MEHUL Metoprolol Tartrate (Metoprolol Tartrate 1 Mg/Ml Vial) 5 mg IV Q4 PRN PRN Reason: sbp > 185, dbp >95, HR >120 Stop: 10/26/24 18:02 Last Admin: 09/28/24 04:32 Dose: 5 mg Documented By: INDUSTRIAL PHARMACIST Admin: 09/27/24 20:04 Dose: 5 mg Documented By: Admin: 09/27/24 14:24 Dose: 5 mg Documented By: MEHUL Metoprolol Tartrate (Metoprolol Tartrate 1 Mg/Ml Vial) 5 mg IV Q6 [facility] Stop: 10/27/24 11:59 Last Admin: 09/28/24 06:07 Dose: 5 mg Documented By: Admin: 09/28/24 01:46 Dose: 5 mg Documented By: Admin: 09/27/24 20:04 Dose: 5 mg Documented By: INDUSTRIAL PHARMACIST Admin: 09/27/24 18:28 Dose: 5 mg Documented By: Admin: 09/27/24 12:02 Dose: 5 mg Documented By: MEHUL Olanzapine (Olanzapine Zydis 5 Mg Orally Dis. Tab) 5 mg PO BID [facility] Stop: 10/27/24 20:59 Last Admin: 09/27/24 20:24 Dose: 5 mg Documented By: INDUSTRIAL PHARMACIST Ondansetron HCl (Ondansetron Inj 2 Mg/Ml 2 Ml Vial) 4 mg IV Q6H PRN PRN Reason: Nausea Stop: 10/26/24 14:35 Last Admin: 09/28/24 00:01 Dose: 4 mg Documented By: ALTON Pantoprazole Sodium (Pantoprazole 40 Mg Tab) 40 mg PO DAILY [facility] Stop: 10/27/24 08:59 Last Admin: 09/27/24 10:48 Dose: Not Given Documented By: MEHUL Vitamin D (Cholecalciferol 25 Mcg (1000 Units) Tab) 50 mcg PO DAILY [facility] Stop: 10/27/24 08:59 Last Admin: 09/27/24 10:47 Dose: Not Given Documented By: MEHUL Resident Activity Tracking Resident Involvement: Resident Care Provided Care Provided: Adult Hospital Medicine (1) Afib Atrial fibrillation type: paroxysmal Qualified Code(s): I48.0 - Paroxysmal atrial fibrillation
[2024-09-28] MEDS: MAGNESIUM SULFATE / D5W 1 GM/100 ML BAG IV SCH (09:22)
[2024-09-28] MEDS: FUROSEMIDE 40 MG/4 ML VIAL IV ONE (11:06)
[2024-09-28] MEDS: cefTRIAXone SODIUM 2,000 MG/50 ML BAG IV SCH (12:15)
--- NOTE | 2024-09-28 17:27 | Billing Data ---
Date of Service September 28, 2024 Coding Level of Care Code 93405 SUB INP/OBS CARE MIN
[2024-09-28] MEDS: METOPROLOL TARTRATE 1 MG/ML VIAL IV SCH (18:02)
[2024-09-28] MEDS: DIGOXIN 125 MCG in SYRINGE 9.5 ML IV SCH (18:04)
--- NOTE | 2024-09-28 19:11 | Electrocardiogram Report ---
Test Reason : Blood Pressure : */* mmHG Vent. Rate : 102 BPM Atrial Rate : * BPM P-R Int : * ms QRS Dur : 96 ms QT Int : 334 ms P-R-T Axes : * -15 149 degrees QTcB Int : 435 ms Atrial fibrillation with rapid ventricular response Inferior infarct , age undetermined Anterior infarct , age undetermined Abnormal ECG When compared with ECG of 05-Sep-2024 09:40, Atrial fibrillation has replaced Sinus rhythm Anterior infarct is now Present Inferior infarct is now Present Inverted T waves have replaced nonspecific T wave abnormality in Lateral leads Confirmed by Rm Cain ([id number]) on 09/28/2024 7:11:16 PM Referred By: Confirmed By: Rm Cain
[2024-09-28] MEDS: SODIUM BICARBONATE 650 MG TAB PO SCH (20:44)
[2024-09-29] MEDS: ACETAMINOPHEN 325 MG TAB PO PRN (05:12)
--- NOTE | 2024-09-29 07:02 | Hospitalist Progress Note ---
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 Pt has been at [facility] since this past , while there is had issues with delirium as well as an up trending creatinine. Pt remains but was less agitated than days prior. Pt's supplemental O2 decreased from 3L to 2L via nasal canula. Per tele, Pt remained in AFIB overnight with HR in the 100s. ROS unremarkable according to the patient, including the lack of physical pain anywhere in the body and lack of SOB. BP has increased from yesterday with persistent tachycardia. PE only remarkable for disorientation to place and time. PLAN #AFIB - AFIB with elevated HR remains per tele - Trial return to PO metoprolol tartrate 50mg BID - If unable to tolerate continue IV metoprolol 7.5mg Q6 - Recommend metoprolol 5mg IV PRN - Consider switch to amioderone - Continue home dose of Digoxin 125mcg PO - Continue Telemetry in PCU for AFIB - EKG with chest pain PRN - Hold anticoagulation for now give recent CVA in accordance with [facility] Neuro recs. [id number] Score = 7, HAS-BLED Score = 6. #Increased Oxygen Demand Due to HFrEF - Creatinine decreased with 40 lasix on 09/27 suggesting increased O2 demand due to HF - Resume home dose of lasix to 40mg PO given improvement in O2 demand and minimal urine output. - Supplemental oxygen decreased to 2L PRN via nasal canula, continue to wean - Order BNP - Consider VBG and chest X-ray if lasix unsuccessful #Metabolic Encephalopathy / Delirium - Continue olanzapine 5mg PO BID and 250 IV valproate for concerns of agitation. - Consider Haloperidol 5mg IV PRN, if insufficient. - Consider benzo reversal if continues to be obtunded - Assess thiamine level and administer thiamine 500units TID IV for two days - Order phosphate level - Consider urine culture for further workup for encephalopathy - Recommend psych for further discussion about proper medication regimen - Recommend fall precautions #Hypomagnesemia - 2g magnesium administered 09/28 - Labs from 09/29 found mag levels at 1.7 #Abnormal urinalysis - Urine culture from 09/28 positive for E. coli. - Continue IV ceftriaxone x 4 days - Consider DC of petit 09/30 or replacing #CKD - Petit inserted 09/28 - Slight bump in Cr from 2.16 to 2.20 - Monitor urine output - Bladder scan PRN - Continue monitor CBC and CMP with AM labs #T2DM - BSG ACHS - Continue insulin at 10 units BID - Continue sliding scale insulin starting 09/27 CF 25mg/dL/unit CR 15g/unit - Hold glipizide, dulaglutide, and metformin Chronic conditions: Continue lisinopril po 5 mg Continue finasteride po 5 mg Continue atorvastatin 40mg po Continue Ferrous sulfate 325mg po Diet: DM2, carb control diet, Easy to chew diet DVT prophylaxis: SCDs Code: DNR/DNI Dispo: PCU/tele Admission and Anticipated Discharge Date Admission Date: September 26, 2024 Supervising Physician Co-Signing Physician Notes Patient was seen and examined independently I discussed the case with Darlin Whitman PGY1 I reviewed pertinent past medical social family history and also the plan of care and agree with the plan of care. Patient remains delirious/encephalopathic. He remains in atrial fibrillation with elevated heart rates: transitioning to oral beta blockers.. He does have a low-grade temperature but is discovered to have an E. coli urinary tract infection sensitivities are pending could be the cause of his worsening encephalopathy. continue antibiotics, and will initiate thiamine IV Reviewed CBC reviewed chemistry Encephalopathy of unclear etiology: given history likely sequela from stroke however unable to rule out E. coli UTI present on admission on ceftriaxone watch for surveillance for ESBL. will need to exchange or remove urinary catheter in A< For delirium we will control his behavior with scheduled twice daily oral olanzapine ODT and IV Depakote. He is also on trazodone and Seroquel will not institute those at this time as she is unreliably taking oral intake EFFIE on CKD this is improving Atrial fibrillation, persistent previous problem intermittently taken metoprolol according to staff at [facility] scheduling metoprolol IV not instituting anticoagulation therapy at this time he is also on digoxin is therapeutic and remains on scheduled dose of intravenous metoprolol dosing also as needed dose needed his infection will not have good rate control until this is completely treated Diabetes patient's oral intake will be unclear we are holding his glipizide dulaglutide and metformin will use sliding scale insulin Once his delirium encephalopathy improved we will consider PT OT evaluation Any exceptions will be noted below Subjective The patient is a 89-year-old gentleman with a relevant history of stage 3 CKD, HTN, T2DM, CAD, OR, cardiac arrest, and recent CVA who presents emergency department with a chief complaint of worsening kidney function on outpatient lab work. Pt has been at [facility] since this past , while there is had issues with delirium as well as an up trending creatinine. Evening on 09/28 and overnight, pt had fever with Tmax of 38.4. Pt was afebrile this am. This morning, the patient was seen around 0730 and was awake. According to nursing, patient was screaming for the majority of the night. Tele reported continued AFIB overnight with HR remaining in the 100s with one episode when HR increased to 120s. Nursing provided mixed reports regarding ability to tolerate PO, with some reporting ability to eat and other reporting that the patient spat out his food. Pt remained in soft restraints and 2L of O2 via nasal canula. Minimal urine output noticed. Pt was still confused, but able to converse with the team. Did not report any pain anywhere in the body or shortness of breath. Review of Systems Review of Systems: Constitutional: No N/V, Fever, chills, fatigue, or headache. HEENT: No eye, ear, or nose pain. No changes to sight, hearing, or smell. No nasal congestion. No sore throat or hoarseness. Heart: No chest pain or noticed changes to heart rate. Lungs: No SOB, coughing, or phlegm production. ABD: No ABD pain Physical Exam Physical Exam: General: Pt was awake and alert at the time of physical exam. No agitation was noticed during examination. Orientated to self, able to converse and answer questions appropriately. Cooperative with exam, following commands. Heart: Irregular rate and rhythm, no rubs, murmurs, or gallops. Lungs: Respirations are mildly labored but improved from previous days. Pt is on 2L of O2 via nasal canula. Abd: hyperactive bowel sounds appreciated. Peripheries: No peripheral edema Skin: dry skin noted at distals arms, excoriations noted a abdomen without open wounds. Bruising at bilateral knees and distal toes. Results & Data Results & Data Vital Signs (Past 12 Hours) Vital Signs Temp Pulse Pulse Resp BP BP BP 09/29/24 07:24 36.4 C L 122 H 22 163/94 H 09/29/24 05:55 36.9 C 09/29/24 05:24 118 H 155/72 H 09/29/24 05:09 135 H 156/95 H 09/29/24 02:29 38.4 C H 130 H 20 161/91 H 09/29/24 00:50 107 H 149/68 H 09/29/24 00:35 115 H 143/86 H 09/28/24 22:05 37.7 C H 110 H 20 137/86 09/28/24 21:57 122 H 09/28/24 20:00 09/28/24 18:53 38.7 C H 75 20 148/78 H 09/28/24 18:15 113 H 164/88 H 09/28/24 18:04 125 H 09/28/24 18:02 125 H 140/76 09/28/24 15:50 37.8 C H 131 H 20 134/82 09/28/24 13:05 105 H 148/72 H 09/28/24 12:50 113 H 165/72 H 09/28/24 10:36 36.9 C 114 H 20 138/75 Pulse Ox O2 Del Method O2 Flow Rate 09/29/24 07:24 94 Nasal Cannula 2 09/29/24 05:55 09/29/24 05:24 09/29/24 05:09 09/29/24 02:29 95 Nasal Cannula 2 09/29/24 00:50 09/29/24 00:35 09/28/24 22:05 94 Nasal Cannula 2 09/28/24 21:57 09/28/24 20:00 Nasal Cannula 2 09/28/24 18:53 95 Nasal Cannula 2 09/28/24 18:15 09/28/24 18:04 09/28/24 18:02 09/28/24 15:50 91 Nasal Cannula 2 09/28/24 13:05 09/28/24 12:50 09/28/24 10:36 93 Nasal Cannula 2 Intake and Output 09/28/24 09/29/24 09/29/24 22:59 06:59 14:59 Intake Total 352.5 / 707.5 52.5 / 707.5 Output Total 850 / 1900 250 / 1900 Balance -497.5 / -1192.5 -197.5 / -1192.5 Intake: IV 52.5 / 407.5 52.5 / 407.5 Valproate Sod 250 mg In 52.5 / 157.5 52.5 / 157.5 Dextrose 5% 50 ml @ 52.5 mls/hr IV Q8H [facility] Rx#:[id number] Oral 300 / 300 Output: Urine Amount (Catheter) 850 / 1900 250 / 1900 Petit/Indwelling 850 / 1900 250 / 1900 Other: Other Intake Source sips Weight 87.6 kg 86.4 kg Weight Measurement Method Built in [facility] Laboratory Results 09/29/24 09/29/24 09/28/24 08:35 07:43 20:22 WBC 8.20 RBC 3.96 L Hgb 11.2 L Hct 35.3 L MCV 89.1 MCH 28.3 MCHC 31.7 L RDW Std Deviation 45.5 RDW Coeff of Brittany 14.1 Plt Count 230 MPV 10.4 Immature Gran % (Auto) 0.5 Neut % (Auto) 73.2 Lymph % (Auto) 15.1 [place] % (Auto) 9.0 Eos % (Auto) 1.5 Baso % (Auto) 0.7 Neut # (Auto) 6.00 Lymph # (Auto) 1.24 [place] # (Auto) 0.74 H Eos # (Auto) 0.12 Baso # (Auto) 0.06 Immature Gran # (Auto) 0.04 Sodium 142 Potassium 4.7 Chloride 107 Carbon Dioxide 30 Anion Gap 5 BUN 24 H Creatinine 2.20 H Est Cr Clr Drug Dosing 25.8 eGFR 28.28 BUN/Creatinine Ratio 10.9 Glucose 172 H POC Glucose 140 H 164 H Calcium 8.8 Magnesium 1.7 09/28/24 09/28/24 16:45 11:48 WBC RBC Hgb Hct MCV MCH MCHC RDW Std Deviation RDW Coeff of Brittany Plt Count MPV Immature Gran % (Auto) Neut % (Auto) Lymph % (Auto) [place] % (Auto) Eos % (Auto) Baso % (Auto) Neut # (Auto) Lymph # (Auto) [place] # (Auto) Eos # (Auto) Baso # (Auto) Immature Gran # (Auto) Sodium Potassium Chloride Carbon Dioxide Anion Gap BUN Creatinine Est Cr Clr Drug Dosing eGFR BUN/Creatinine Ratio Glucose POC Glucose 179 H 185 H Calcium Magnesium Medications Administered Acetaminophen (Acetaminophen 325 Mg Tab) 650 mg PO Q4H PRN PRN Reason: Pain or Fever Stop: 10/26/24 14:35 Last Admin: 09/29/24 05:12 Dose: 650 mg Documented By: ENRIQUE Atorvastatin Calcium (Atorvastatin 40 Mg Tab) 40 mg PO QPM [facility] Stop: 10/26/24 20:59 Last Admin: 09/28/24 20:43 Dose: 40 mg Documented By: Admin: 09/27/24 20:13 Dose: Not Given Documented By: Admin: 09/26/24 21:22 Dose: Not Given Documented By: SANTIAGO Dorzolamide/Timolol (Dorzolamide/Timolol 22.3/6.8mg/Ml 10 Ml Btl) 1 drops OPB BID [facility] Stop: 10/26/24 20:59 Last Admin: 09/28/24 20:42 Dose: 1 drops Documented By: Admin: 09/28/24 11:08 Dose: 1 drops Documented By: Admin: 09/27/24 20:10 Dose: 1 drops Documented By: Admin: 09/27/24 08:44 Dose: 1 drops Documented By: Admin: 09/26/24 21:22 Dose: Not Given Documented By: [facility] Ferrous Sulfate (Ferrous Sulfate 325 Mg Tab) 325 mg PO Q2D@0900 [facility] Stop: 10/27/24 08:59 Last Admin: 09/27/24 10:48 Dose: Not Given Documented By: MEHUL Finasteride (Finasteride 5 Mg Tab) 5 mg PO DAILY [facility] Stop: 10/27/24 08:59 Last Admin: 09/28/24 11:07 Dose: 5 mg Documented By: Admin: 09/27/24 11:59 Dose: Not Given Documented By: MEHUL Haloperidol Lactate (Haloperidol Lactate 5 Mg/Ml 1 Ml Vial) 5 mg IV Q6H PRN PRN Reason: Agitation Stop: 10/26/24 18:02 Last Admin: 09/27/24 23:49 Dose: 5 mg Documented By: Admin: 09/27/24 13:21 Dose: 5 mg Documented By: Admin: 09/26/24 21:49 Dose: 5 mg Documented By: SANTIAGO Digoxin 125 mcg/ Syringe 10 mls @ 2 mls/min IV DAILY@1600 AUDRA Stop: 10/28/24 15:59 Last Admin: 09/28/24 18:04 Dose: 2 mls/min Documented By: VOLODYMYR Valproic Acid 250 mg/ Dextrose 52.5 mls @ 52.5 mls/hr IV Q8H [facility] Stop: 10/27/24 17:59 Last Infusion: 09/29/24 01:47 Dose: Infused Documented By: Admin: 09/29/24 00:47 Dose: 52.5 mls/hr Documented By: Infusion: 09/28/24 19:14 Dose: Infused Documented By: Admin: 09/28/24 18:05 Dose: 52.5 mls/hr Documented By: Infusion: 09/28/24 12:06 Dose: Infused Documented By: Admin: 09/28/24 11:06 Dose: 52.5 mls/hr Documented By: Infusion: 09/28/24 02:41 Dose: Infused Documented By: Admin: 09/28/24 01:41 Dose: 52.5 mls/hr Documented By: Infusion: 09/27/24 19:40 Dose: Infused Documented By: Admin: 09/27/24 18:39 Dose: 52.5 mls/hr Documented By: MEHUL Acetaminophen (Ofirmev) 1,000 mg in 100 mls @ 400 mls/hr IV Q8H PRN PRN Reason: Pain or Fever Stop: 09/30/24 19:51 Last Infusion: 09/28/24 04:46 Dose: Infused Documented By: Admin: 09/28/24 04:31 Dose: 400 mls/hr Documented By: Infusion: 09/27/24 20:23 Dose: Infused Documented By: Admin: 09/27/24 20:05 Dose: 400 mls/hr Documented By: ALTON Ceftriaxone Sodium (Rocephin) 2,000 mg in 50 mls @ 100 mls/hr IV Q24H [facility] Stop: 10/03/24 11:29 Last Infusion: 09/28/24 12:45 Dose: Infused Documented By: Admin: 09/28/24 12:15 Dose: 100 mls/hr Documented By: VOLODYMYR Insulin Aspart (Insulin Aspart Per Unit Charge) 0 units SC ACHS [facility] Stop: 10/26/24 18:02 Last Admin: 09/28/24 20:42 Dose: 2 units Documented By: FERNY Co-signed By: JUAN JOSE Admin: 09/28/24 18:07 Dose: 3 units Documented By: VOLODYMYR Co-signed By: GUERO Admin: 09/28/24 12:15 Dose: 2 units Documented By: VOLODYMYR Co-signed By: JORDAN Admin: 09/28/24 09:22 Dose: 2 units Documented By: VOLODYMYR Co-signed By: JORDAN Admin: 09/27/24 20:17 Dose: 3 units Documented By: ALTON Co-signed By: TUSHAR Admin: 09/27/24 17:20 Dose: 2 units Documented By: MEHUL Co-signed By: LORENA Admin: 09/27/24 12:08 Dose: 3 units Documented By: MEHUL Co-signed By: LORENA Admin: 09/27/24 08:38 Dose: 3 units Documented By: MEHUL Co-signed By: LORENA Admin: 09/26/24 21:00 Dose: 3 units Documented By: SANTIAGO Co-signed By: FRANCA Admin: 09/26/24 19:35 Dose: Not Given Documented By: SANTIAGO Lisinopril (Lisinopril 5 Mg Tab) 5 mg PO DAILY [facility] Stop: 10/27/24 08:59 Last Admin: 09/28/24 11:08 Dose: 5 mg Documented By: Admin: 09/27/24 11:59 Dose: Not Given Documented By: MEHUL Metoprolol Tartrate (Metoprolol Tartrate 1 Mg/Ml Vial) 5 mg IV Q4 PRN PRN Reason: sbp > 185, dbp >95, HR >120 Stop: 10/26/24 18:02 Last Admin: 09/28/24 04:32 Dose: 5 mg Documented By: Admin: 09/27/24 20:04 Dose: 5 mg Documented By: Admin: 09/27/24 14:24 Dose: 5 mg Documented By: MEHLU Metoprolol Tartrate (Metoprolol Tartrate 1 Mg/Ml Vial) 7.5 mg IV Q6 [facility] Stop: 10/28/24 17:59 Last Admin: 09/29/24 05:09 Dose: 7.5 mg Documented By: Admin: 09/29/24 00:35 Dose: 7.5 mg Documented By: Admin: 09/28/24 18:02 Dose: 7.5 mg Documented By: VOLODYMYR Olanzapine (Olanzapine Zydis 5 Mg Orally Dis. Tab) 5 mg PO BID [facility] Stop: 10/27/24 20:59 Last Admin: 09/28/24 20:43 Dose: 5 mg Documented By: Admin: 09/28/24 11:07 Dose: 5 mg Documented By: Admin: 09/27/24 20:24 Dose: 5 mg Documented By: ALTON Ondansetron HCl (Ondansetron Inj 2 Mg/Ml 2 Ml Vial) 4 mg IV Q6H PRN PRN Reason: Nausea Stop: 10/26/24 14:35 Last Admin: 09/28/24 00:01 Dose: 4 mg Documented By: ALTON Pantoprazole Sodium (Pantoprazole 40 Mg Tab) 40 mg PO DAILY [facility] Stop: 10/27/24 08:59 Last Admin: 09/28/24 11:08 Dose: 40 mg Documented By: Admin: 09/27/24 10:48 Dose: Not Given Documented By: MEHUL Sodium Bicarbonate (Sodium Bicarbonate 650 Mg Tab) 650 mg PO BID [facility] Stop: 10/28/24 20:59 Last Admin: 09/28/24 20:44 Dose: 650 mg Documented By: FERNY Vitamin D (Cholecalciferol 25 Mcg (1000 Units) Tab) 50 mcg PO DAILY [facility] Stop: 10/27/24 08:59 Last Admin: 09/28/24 11:07 Dose: 50 mcg Documented By: Admin: 09/27/24 10:47 Dose: Not Given Documented By: MEHUL Resident Activity Tracking Resident Involvement: Resident Care Provided Care Provided: Adult Hospital Medicine (1) Afib Atrial fibrillation type: paroxysmal Qualified Code(s): I48.0 - Paroxysmal atrial fibrillation
[2024-09-29] MEDS: TAMSULOSIN HCL 0.4 MG CAP PO SCH (08:45)
[2024-09-29] MEDS: ASPIRIN 81 MG ECTAB PO SCH (08:47)
[2024-09-29] MEDS: ARTIFICIAL TEARS OP SCH (08:52)
[2024-09-29 08:57] LABS: Basophils # (auto) 0.06 K/uL (0.00-0.20); Basophils % (auto) 0.7 %; Eosinophils # (auto) 0.12 K/uL (0.00-0.50); Eosinophils % (auto) 1.5 %; Hematocrit (blood only) 35.3 % (42.0-52.0); Hemoglobin 11.2 g/dl (14.0-18.0); Immature Granulocytes # (auto) 0.04 K/uL (0.01-0.20); Immature Granulocytes % (auto) 0.5 %; Lymphocytes # (auto) 1.24 K/uL (1.20-3.40); Lymphocytes % (auto) 15.1 %; Mean Corpuscular Hemoglobin 28.3 pg (25.0-34.0); Mean Corpuscular Hgb Conc 31.7 g/dL (32.0-36.0); Mean Corpuscular Volume 89.1 fL (80.0-100.0); Mean Platelet Volume 10.4 fL (9.4-12.4); Monocytes # (auto) 0.74 K/uL (0.11-0.59); Neutrophils % (auto) 73.2 %; Platelet Count 230 K/uL (130-400); RDW Coefficient of Variation 14.1 % (11.5-14.5); RDW Standard Deviation 45.5 fL (36.4-46.3); Red Blood Count 3.96 M/uL (4.70-6.10)
[2024-09-29 09:13] LABS: BUN Creatinine Ratio 10.9 (10-20); Calcium 8.8 mg/dl (8.6-10.3); Creatinine Clr Calc Pharmacy 25.8 ml/min; Magnesium 1.7 mg/dl (1.7-2.4); Potassium 4.7 mmol/L (3.5-5.1)
[2024-09-29] MEDS: METOPROLOL TARTRATE 50 MG TAB PO SCH (11:32)
[2024-09-29] MEDS: FUROSEMIDE 40 MG TAB PO SCH (11:32)
[2024-09-29] MEDS: SPIRONOLACTONE 25 MG TAB PO SCH (13:08)
[2024-09-29] MEDS: DIGOXIN 0.125 MG TAB PO SCH (17:22)
--- NOTE | 2024-09-29 23:08 | Billing Data ---
Date of Service September 29, 2024 Coding Level of Care Code 76073 SUB INP/OBS CARE MIN
--- NOTE | 2024-09-30 07:14 | Hospitalist Progress Note ---
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 Pt has been at [facility] since this past , while there is had issues with delirium as well as an up trending creatinine. Pt remains but was less agitated than days prior. Per tele, Pt remained in AFIB overnight with HR in the 100s. ROS unremarkable according to the patient, including the lack of physical pain anywhere in the body and lack of SOB. PE remarkable for irregular heart rate and rhythm, bilateral eye discharge, and disorientation to place and time. Cessation of supplemental O2 was trialed during physical exam without complications. Expectedly elevated BNP given Hx of HFrEF. PLAN #AFIB - AFIB with elevated HR remains per tele - Continue to PO metoprolol tartrate 50mg BID - If unable to tolerate continue IV metoprolol 7.5mg Q6 - Recommend metoprolol 5mg IV PRN - Continue home dose of Digoxin 125mcg PO - Continue Telemetry in PCU for AFIB - EKG with chest pain PRN - Hold anticoagulation until 10/03 given recent CVA in accordance with [facility] recs. [id number] Score = 7, HAS-BLED Score = 6. #Increased Oxygen Demand Due to HFrEF - Continue Lasix to 40mg PO given improvement in O2 demand - Continue PO spironolactone 25mg - Trial cessation of supplemental oxygen - continue to monitor O2 saturation #Metabolic Encephalopathy / Delirium - Psych eval, recommendations appreciated and as follows Continue Zyprexa PO 5 mg BID- transition to 2.5mg qam and 5mg qhs, then eventually only 5mg qhs Recommends Zyprexa IM 2.5mg PRN for increased agitation and can increase to IM 5mg if needed Stop use of halidol PRN Continue IV Valproate today and over night, start divalproex PO 125mg PRN for agitation Order ammonia level after stopping IV valproate - Remove soft restraints - Thiamine level pending. If low, administer thiamine 500units TID IV for two days - Continue 1:1 supervision #Hypomagnesmia - 2g magnesium administered 09/28 - Labs from 09/29 found mag levels at 1.7 #Abnormal urinalysis - Urine culture from 09/28 positive for E. coli. - Continue IV ceftriaxone, last dose on 10/03 #CKD - Petit currently inserted - Ordered petit removal given decrease in agitation - If removal is not possible, recommend exchange given post-insertion UTI - Downtrending creatinine (2.20 on 09/29 to 2.08 on 09/30) - Bladder scan PRN - Continue monitor CBC and CMP with AM labs #T2DM - BSG ACHS - Continue insulin at 10 units BID - Continue sliding scale insulin starting 09/27 CF 25mg/dL/unit CR 15g/unit - Hold glipizide, dulaglutide, and metformin Chronic conditions: Continue lisinopril po 5 mg Continue finasteride po 5 mg Continue atorvastatin 40mg po Diet: DM2, carb control diet, Easy to chew diet DVT prophylaxis: SCDs Code: DNR/DNI Dispo: PCU/tele Admission and Anticipated Discharge Date Admission Date: September 26, 2024 Supervising Physician Co-Signing Physician Notes Patient was seen and examined independently I discussed the case with Darlin Whitman PGY1 I reviewed pertinent past medical social family history and also the plan of care and agree with the plan of care. Patient remains delirious/encephalopathic but calm. He remains in atrial fibrillation with elevated heart rates: HR slightly better now that patient is on scheduled oral beta blockers.. He does have a low-grade temperature but is discovered to have an E. coli urinary tract infection sensitivities are pending could be the cause of his worsening encephalopathy. continue antibiotics, and will initiate thiamine IV Reviewed CBC reviewed chemistry Encephalopathy of unclear etiology: given history likely sequela from stroke however unable to rule out E. coli UTI present on admission on ceftriaxone watch for surveillance for ESBL. will remove petit. For delirium we will control his behavior with scheduled twice daily oral olanzapine ODT and IV Depakote. He is also on trazodone and Seroquel will not institute those at this time as she is unreliably taking oral intake EFFIE on CKD this is improving Atrial fibrillation, persistent previous problem intermittently taken metoprolol according to staff at [facility] scheduling metoprolol IV not instituting anticoagulation therapy at this time he is also on digoxin is therapeutic and remains on scheduled dose of intravenous metoprolol dosing also as needed dose needed his infection will not have good rate control until this is completely treated Diabetes patient's oral intake will be unclear we are holding his glipizide dulaglutide and metformin will use sliding scale insulin Once his delirium encephalopathy improved we will consider PT OT evaluation Any exceptions will be noted below Subjective The patient is a 89-year-old gentleman with a relevant history of stage 3 CKD, HTN, T2DM, CAD, RI, cardiac arrest, and recent CVA who presents emergency department with a chief complaint of worsening kidney function on outpatient lab work. Pt has been at [facility] since this past , while there is had issues with delirium as well as an up trending creatinine. Tele reported continued AFIB overnight with HR remaining in the 100s overnight. Early this morning, AFIB continued with a max heart rate of 127 and noted PVCs. Nursing reported that the patient was more stable overnight compared to previous nights. They reported that there were brief periods when the patient's orientation was increased, although his confusion returned by breakfast. This morning, he was awake, alert and cooperative. Pt remained in soft restraints and 2L of O2 via nasal canula. Under watch of the hospitalist team, the patient was trialed on room air and O2 saturation remained stable between low to mid 90s. Pt was still confused, but able to converse with the team. Did not report any pain anywhere in the body or shortness of breath. Review of Systems Review of Systems: Constitutional: No N/V, Fever, chills, fatigue, or headache. HEENT: No eye, ear, or nose pain. No changes to sight, hearing, or smell. No nasal congestion. No sore throat or hoarseness. He denies eye irritation or pruritus. Heart: No chest pain or noticed changes to heart rate. Lungs: No SOB, coughing, or phlegm production. ABD: No ABD pain Physical Exam Physical Exam: General: Pt was awake at the time of physical exam. Pt was only oriented to self. Pt was able converse and tolerate PO breakfast HEENT: Eyes have yellow, dried discharge at upper and lower eyelids. Heart: Irregular rate and rhythm, no rubs, murmurs, or gallops. Lungs: Respirations were non-labored without crackles, wheezes, rhonchi. Abd: Non distended, soft, normoactive bowel sounds appreciated. Peripheries: No peripheral edema. No psychomotor agitation, mild tremor of the RUE. Results & Data Results & Data Vital Signs (Past 12 Hours) Vital Signs Temp Pulse Pulse Resp BP BP Pulse Ox 09/30/24 02:30 37.5 C 107 H 22 175/92 H 95 09/29/24 23:53 37.5 C 112 H 20 131/87 95 09/29/24 21:56 102 H 09/29/24 20:00 09/29/24 19:33 37.5 C 110 H 20 160/73 H 98 O2 Del Method O2 Flow Rate 09/30/24 02:30 Nasal Cannula 2 09/29/24 23:53 Nasal Cannula 2 09/29/24 21:56 09/29/24 20:00 Nasal Cannula 2 09/29/24 19:33 Nasal Cannula 2 Laboratory Results 09/30/24 09/30/24 09/29/24 07:46 07:37 20:10 WBC 7.48 RBC 4.19 L Hgb 11.6 L Hct 37.0 L MCV 88.3 MCH 27.7 MCHC 31.4 L RDW Std Deviation 45.1 RDW Coeff of Brittany 14.2 Plt Count 216 MPV 10.4 Immature Gran % (Auto) 0.4 Neut % (Auto) 64.6 Lymph % (Auto) 19.4 [place] % (Auto) 10.4 Eos % (Auto) 4.5 Baso % (Auto) 0.7 Neut # (Auto) 4.83 Lymph # (Auto) 1.45 [place] # (Auto) 0.78 H Eos # (Auto) 0.34 Baso # (Auto) 0.05 Immature Gran # (Auto) 0.03 Sodium 142 Potassium 4.7 Chloride 105 Carbon Dioxide 29 Anion Gap 8 BUN 28 H Creatinine 2.08 H Est Cr Clr Drug Dosing 27.2 eGFR 30.25 BUN/Creatinine Ratio 13.5 Glucose 124 H POC Glucose 120 H 138 H Calcium 9.0 B-Natriuretic Peptide 09/29/24 09/29/24 09/29/24 16:05 11:16 11:10 WBC RBC Hgb Hct MCV MCH MCHC RDW Std Deviation RDW Coeff of Brittany Plt Count MPV Immature Gran % (Auto) Neut % (Auto) Lymph % (Auto) [place] % (Auto) Eos % (Auto) Baso % (Auto) Neut # (Auto) Lymph # (Auto) [place] # (Auto) Eos # (Auto) Baso # (Auto) Immature Gran # (Auto) Sodium Potassium Chloride Carbon Dioxide Anion Gap BUN Creatinine Est Cr Clr Drug Dosing eGFR BUN/Creatinine Ratio Glucose POC Glucose 95 222 H Calcium B-Natriuretic Peptide 2727 H Medications Administered Acetaminophen (Acetaminophen 325 Mg Tab) 650 mg PO Q4H PRN PRN Reason: Pain or Fever Stop: 10/26/24 14:35 Last Admin: 09/29/24 05:12 Dose: 650 mg Documented By: FERNY Artificial Tears (Artificial Tears) 1 drops OP DAILY AUDRA Stop: 10/29/24 08:59 Last Admin: 09/29/24 08:52 Dose: 1 drops Documented By: DENISSE Aspirin (Aspirin 81 Mg Ectab) 81 mg PO DAILY AUDRA Stop: 10/29/24 08:59 Last Admin: 09/29/24 08:47 Dose: 81 mg Documented By: DENISSE Atorvastatin Calcium (Atorvastatin 40 Mg Tab) 40 mg PO QPM AUDRA Stop: 10/26/24 20:59 Last Admin: 09/29/24 20:40 Dose: 40 mg Documented By: [facility] Admin: 09/28/24 20:43 Dose: 40 mg Documented By: [facility] Admin: 09/27/24 20:13 Dose: Not Given Documented By: [employer] Admin: 09/26/24 21:22 Dose: Not Given Documented By: [facility] Digoxin (Digoxin 0.125 Mg Tab) 0.125 mg PO Q24H AUDRA Stop: 10/29/24 15:59 Last Admin: 09/29/24 17:22 Dose: 0.125 mg Documented By: DENISSE Dorzolamide/Timolol (Dorzolamide/Timolol 22.3/6.8mg/Ml 10 Ml Btl) 1 drops OPB BID AUDRA Stop: 10/26/24 20:59 Last Admin: 09/29/24 20:40 Dose: 1 drops Documented By: Admin: 09/29/24 08:45 Dose: 1 drops Documented By: Admin: 09/28/24 20:42 Dose: 1 drops Documented By: Admin: 09/28/24 11:08 Dose: 1 drops Documented By: Admin: 09/27/24 20:10 Dose: 1 drops Documented By: Admin: 09/27/24 08:44 Dose: 1 drops Documented By: Admin: 09/26/24 21:22 Dose: Not Given Documented By: SANTIAGO Ferrous Sulfate (Ferrous Sulfate 325 Mg Tab) 325 mg PO Q2D@0900 AUDRA Stop: 10/27/24 08:59 Last Admin: 09/29/24 08:46 Dose: 325 mg Documented By: Admin: 09/27/24 10:48 Dose: Not Given Documented By: MEHUL Finasteride (Finasteride 5 Mg Tab) 5 mg PO DAILY AUDRA Stop: 10/27/24 08:59 Last Admin: 09/29/24 08:46 Dose: 5 mg Documented By: Admin: 09/28/24 11:07 Dose: 5 mg Documented By: Admin: 09/27/24 11:59 Dose: Not Given Documented By: MEHUL Furosemide (Furosemide 40 Mg Tab) 40 mg PO QAM AUDRA Stop: 10/29/24 10:59 Last Admin: 09/29/24 11:32 Dose: 40 mg Documented By: DENISSE Haloperidol Lactate (Haloperidol Lactate 5 Mg/Ml 1 Ml Vial) 5 mg IV Q6H PRN PRN Reason: Agitation Stop: 10/26/24 18:02 Last Admin: 09/27/24 23:49 Dose: 5 mg Documented By: Admin: 09/27/24 13:21 Dose: 5 mg Documented By: Admin: 09/26/24 21:49 Dose: 5 mg Documented By: SANTIAGO Valproic Acid 250 mg/ Dextrose 52.5 mls @ 52.5 mls/hr IV Q8H AUDRA Stop: 10/27/24 17:59 Last Infusion: 09/30/24 03:07 Dose: Infused Documented By: Admin: 09/30/24 02:07 Dose: 52.5 mls/hr Documented By: Infusion: 09/29/24 18:40 Dose: Infused Documented By: Admin: 09/29/24 17:21 Dose: 52.8 mls/hr Documented By: Infusion: 09/29/24 17:19 Dose: Infused Documented By: Admin: 09/29/24 08:44 Dose: 52.5 mls/hr Documented By: Infusion: 09/29/24 01:47 Dose: Infused Documented By: Admin: 09/29/24 00:47 Dose: 52.5 mls/hr Documented By: Infusion: 09/28/24 19:14 Dose: Infused Documented By: Admin: 09/28/24 18:05 Dose: 52.5 mls/hr Documented By: Infusion: 09/28/24 12:06 Dose: Infused Documented By: Admin: 09/28/24 11:06 Dose: 52.5 mls/hr Documented By: Infusion: 09/28/24 02:41 Dose: Infused Documented By: Admin: 09/28/24 01:41 Dose: 52.5 mls/hr Documented By: Infusion: 09/27/24 19:40 Dose: Infused Documented By: Admin: 09/27/24 18:39 Dose: 52.5 mls/hr Documented By: MEHUL Acetaminophen (Ofirmev) 1,000 mg in 100 mls @ 400 mls/hr IV Q8H PRN PRN Reason: Pain or Fever Stop: 09/30/24 19:51 Last Infusion: 09/28/24 04:46 Dose: Infused Documented By: Admin: 09/28/24 04:31 Dose: 400 mls/hr Documented By: Infusion: 09/27/24 20:23 Dose: Infused Documented By: Admin: 09/27/24 20:05 Dose: 400 mls/hr Documented By: ALTON Ceftriaxone Sodium (Rocephin) 2,000 mg in 50 mls @ 100 mls/hr IV Q24H AUDRA Stop: 10/03/24 11:29 Last Infusion: 09/29/24 18:22 Dose: Infused Documented By: Admin: 09/29/24 13:08 Dose: 100 mls/hr Documented By: Infusion: 09/28/24 12:45 Dose: Infused Documented By: Admin: 09/28/24 12:15 Dose: 100 mls/hr Documented By: VOLODYMYR Insulin Aspart (Insulin Aspart Per Unit Charge) 0 units SC ACHS AUDRA Stop: 10/26/24 18:02 Last Admin: 09/29/24 20:38 Dose: Not Given Documented By: Admin: 09/29/24 17:19 Dose: Not Given Documented By: Admin: 09/29/24 12:09 Dose: 8 units Documented By: DENISSE Co-signed By: ROB Admin: 09/29/24 08:16 Dose: 5 units Documented By: DENISSE Co-signed By: Admin: 09/28/24 20:42 Dose: 2 units Documented By: FERNY Co-signed By: JUAN JOSE Admin: 09/28/24 18:07 Dose: 3 units Documented By: VOLODYMYR Co-signed By: GUERO Admin: 09/28/24 12:15 Dose: 2 units Documented By: VOLODYMYR Co-signed By: JORDAN Admin: 09/28/24 09:22 Dose: 2 units Documented By: VOLODYMYR Co-signed By: JORDAN Admin: 09/27/24 20:17 Dose: 3 units Documented By: ALTON Co-signed By: TUSHAR Admin: 09/27/24 17:20 Dose: 2 units Documented By: MEHUL Co-signed By: LORENA Admin: 09/27/24 12:08 Dose: 3 units Documented By: MEHUL Co-signed By: LORENA Admin: 09/27/24 08:38 Dose: 3 units Documented By: MEHUL Co-signed By: LORENA Admin: 09/26/24 21:00 Dose: 3 units Documented By: SANTIAGO Co-signed By: FRANCA Admin: 09/26/24 19:35 Dose: Not Given Documented By: SANTIAGO Lisinopril (Lisinopril 5 Mg Tab) 5 mg PO DAILY AUDRA Stop: 10/27/24 08:59 Last Admin: 09/29/24 08:46 Dose: 5 mg Documented By: Admin: 09/28/24 11:08 Dose: 5 mg Documented By: Admin: 09/27/24 11:59 Dose: Not Given Documented By: MEHUL Metoprolol Tartrate (Metoprolol Tartrate 1 Mg/Ml Vial) 5 mg IV Q4 PRN PRN Reason: sbp > 185, dbp >95, HR >120 Stop: 10/26/24 18:02 Last Admin: 09/28/24 04:32 Dose: 5 mg Documented By: Admin: 09/27/24 20:04 Dose: 5 mg Documented By: Admin: 09/27/24 14:24 Dose: 5 mg Documented By: MEHUL Metoprolol Tartrate (Metoprolol Tartrate 50 Mg Tab) 50 mg PO BID AUDRA Stop: 10/29/24 11:29 Last Admin: 09/29/24 20:41 Dose: 50 mg Documented By: Admin: 09/29/24 11:32 Dose: 50 mg Documented By: DENISSE Olanzapine (Olanzapine Zydis 5 Mg Orally Dis. Tab) 5 mg PO BID AUDRA Stop: 10/27/24 20:59 Last Admin: 09/29/24 20:42 Dose: 5 mg Documented By: Admin: 09/29/24 11:12 Dose: 5 mg Documented By: Admin: 09/28/24 20:43 Dose: 5 mg Documented By: Admin: 09/28/24 11:07 Dose: 5 mg Documented By: Admin: 09/27/24 20:24 Dose: 5 mg Documented By: ALTON Ondansetron HCl (Ondansetron Inj 2 Mg/Ml 2 Ml Vial) 4 mg IV Q6H PRN PRN Reason: Nausea Stop: 10/26/24 14:35 Last Admin: 09/28/24 00:01 Dose: 4 mg Documented By: ALTON Pantoprazole Sodium (Pantoprazole 40 Mg Tab) 40 mg PO DAILY AUDRA Stop: 10/27/24 08:59 Last Admin: 09/29/24 08:45 Dose: 40 mg Documented By: Admin: 09/28/24 11:08 Dose: 40 mg Documented By: Admin: 09/27/24 10:48 Dose: Not Given Documented By: MEHUL Sodium Bicarbonate (Sodium Bicarbonate 650 Mg Tab) 650 mg PO BID AUDRA Stop: 10/28/24 20:59 Last Admin: 09/29/24 20:39 Dose: 650 mg Documented By: Admin: 09/29/24 08:46 Dose: 650 mg Documented By: Admin: 09/28/24 20:44 Dose: 650 mg Documented By: FERNY Spironolactone (Spironolactone 25 Mg Tab) 25 mg PO DAILY AUDRA Stop: 10/29/24 11:29 Last Admin: 09/29/24 13:08 Dose: 25 mg Documented By: DENISSE Tamsulosin HCl (Tamsulosin Hcl 0.4 Mg Cap) 0.4 mg PO DAILY [facility] Stop: 10/29/24 08:59 Last Admin: 09/29/24 08:45 Dose: 0.4 mg Documented By: DENISSE Vitamin D (Cholecalciferol 25 Mcg (1000 Units) Tab) 50 mcg PO DAILY [facility] Stop: 10/27/24 08:59 Last Admin: 09/29/24 08:46 Dose: 50 mcg Documented By: Admin: 09/28/24 11:07 Dose: 50 mcg Documented By: Admin: 09/27/24 10:47 Dose: Not Given Documented By: MEHUL (1) Afib Atrial fibrillation type: paroxysmal Qualified Code(s): I48.0 - Paroxysmal atrial fibrillation
[2024-09-30 08:04] LABS: Basophils # (auto) 0.05 K/uL (0.00-0.20); Basophils % (auto) 0.7 %; Eosinophils # (auto) 0.34 K/uL (0.00-0.50); Eosinophils % (auto) 4.5 %; Hemoglobin 11.6 g/dl (14.0-18.0); Immature Granulocytes # (auto) 0.03 K/uL (0.01-0.20); Immature Granulocytes % (auto) 0.4 %; Lymphocytes # (auto) 1.45 K/uL (1.20-3.40); Lymphocytes % (auto) 19.4 %; Mean Corpuscular Hemoglobin 27.7 pg (25.0-34.0); Mean Corpuscular Hgb Conc 31.4 g/dL (32.0-36.0); Mean Corpuscular Volume 88.3 fL (80.0-100.0); Mean Platelet Volume 10.4 fL (9.4-12.4); Monocytes # (auto) 0.78 K/uL (0.11-0.59); Monocytes % (auto) 10.4 %; Neutrophils # (auto) 4.83 K/uL (1.40-6.50); Neutrophils % (auto) 64.6 %; Platelet Count 216 K/uL (130-400); RDW Coefficient of Variation 14.2 % (11.5-14.5); RDW Standard Deviation 45.1 fL (36.4-46.3); Red Blood Count 4.19 M/uL (4.70-6.10); White Blood Count 7.48 K/ul (4.8-10.8)
[2024-09-30 08:33] LABS: Potassium 4.7 mmol/L (3.5-5.1)
[2024-09-30 08:34] LABS: BUN Creatinine Ratio 13.5 (10-20); Creatinine Clr Calc Pharmacy 27.2 ml/min
--- NOTE | 2024-09-30 13:42 | Psychiatric Consultation ---
Date of Consultation September 30, 2024 Impression / Recommendations Impression Diagnostically consistent with encephalopathy/delirium superimposed on already fragile brain from past CVA and recent decreased oxygenation and kidney changes which are both common culprits for delirium. Unfortunately there are no known medications to cure or shorten the duration of delirium; rather antipsychotics are used at times to help with sleep/appetite/psychomotor agitation and hallucinations if these symptoms are causing significant distress and/or interfering with acute safety. Duration of delirium varies broadly with persistent delirium (defined as lasting for weeks or months) occurring frequently with [id number]% of patients exhibiting some symptoms of delirium at 6 months after symptom onset, see:Benjamin Multani., Sandra Brooks., Christian Joshuaet al.Delirium.[place] Rev Dis Primers6, 90 (2020). [email or web address]. Overall, I spent a total of 60 minutes with this case including review of chart records, review of labwork, review of EKG QTc, direct evaluation of the patient at bedside, counseling the patient, discussion of the patient with the Nurse and with the hospitalist provider, discussion with the psychiatric liason during clinical rounds and documentation in the electronic health record. (1) Delirium: (2) Metabolic encephalopathy: (3) Afib: Atrial fibrillation type: paroxysmal Qualified Code(s): I48.0 - Paroxysmal atrial fibrillation (4) Increased oxygen demand: (5) Heart failure: Plan -1-on-1 prn for redirection/recent agitation -Fine to continue olanzapine 5mg ODT BID for now given it seems to be helping to reduce agitation, if daytime sedation occurs or as delirium improves would taper to 2.5mg qAM and 5mg HS and then to just 5mg HS if tolerated. -Would try to discontinue IV depakote tomorrow AM if agitation continues to subside. Could then restart use of Depakote 125mg po q8h prn for agitation. -Consider ammonia level to rule out potential contribution to confusion if Depakote po had been used frequently prior to admission and with ongoing IV use. -Continue medical workup to rule out and treat any underlying causes contributing to potential delirium, avoid or limit use of deliriogenic medications (benzodiazepines, opioids, anticholinergics) -Continue with delirium prevention measures: raising blinds during the day, closing at night, frequent re-orientation, contact with family/friends, explaini ng procedures/nursing care measures prior to physical contact, correct any hearing and visual impairments -For behavioral emergency: olanzapine 2.5 mg IM x 1 (DO NOT exceed 10mg per 24 hours, check EKG if IM dose required, NEVER co-administer with IM or IV benzodiazepines). Psych History Identifying Data Psychiatry consulted for "agitation, managing psych meds". Chief Complaint "mumbled". History of Present Illness Walter is an 89-year-old man with a relevant history of stage 3 CKD, HTN, T2DM, CAD, MT, cardiac arrest, and recent CVA who presented to the emergency department with a chief complaint of worsening kidney function on outpatient lab work and admitted medically and since required supplemental oxygen, afib, and confusion with agitated behaviors. He has been taking olanzapine ODT 5mg BID and getting Depakote IV 250mg q8hr. Reportedly had Depakote 125mg po q8h prn prior to admission (presumable due to disinhibition following CVA). Had required IV haldol earlier in admission but none in recent days. Today he was able to have soft restraints removed, awake all morning but confused. His son visited and then he slept after lunch and woke only briefly when I saw him. Allergies Allergy/AdvReac Type Severity Reaction Status Date / Time No Known Allergies Allergy Mild Unverified 08/11/24 12:50 Home Medications Medication Instructions Recorded Confirmed Type dorzolamide 22.3 mg-timolol 6.8 1 drp OPB BID 12/10/22 09/28/24 History mg/mL eye drops blood sugar diagnostic #100 ea 10/06/23 08/11/24 Rx lancets (Accu-Chek Fastclix Lancet #100 ea 10/06/23 08/11/24 Rx Drum) cyclosporine 0.05 % eye drops 1 drp OPB BID 11/04/23 09/28/24 History aspirin 81 mg tablet,delayed 81 mg PO DAILY #90 tabs 12/25/23 09/28/24 Rx release (Adult Low Dose Aspirin) lisinopril 5 mg tablet 5 mg PO DAILY #90 tabs 01/06/24 09/28/24 Rx ferrous sulfate 325 mg (65 mg 325 mg PO Q2D #90 tabs 01/12/24 09/28/24 Rx iron) tablet pantoprazole 40 mg tablet,delayed 40 mg PO DAILY #90 tabs 01/12/24 09/28/24 Rx release (Protonix) metformin 500 mg tablet,extended 1,000 mg (2 x 500 mg) PO BID #360 02/09/24 09/28/24 Rx release 24 hr tabs acetaminophen 325 mg tablet 325 mg PO QID PRN pain #30 tabs 05/18/24 09/28/24 Rx (Tylenol) dulaglutide 4.5 mg/0.5 mL 4.5 mg (0.5 mL) subcut .weekly #2 05/18/24 09/28/24 Rx subcutaneous pen injector mL (Trulicity) finasteride 5 mg tablet (Proscar) 5 mg PO DAILY #90 tabs 05/18/24 09/28/24 Rx atorvastatin 40 mg tablet 40 mg PO QPM #90 tabs 07/05/24 09/28/24 Rx melatonin 5 mg capsule 5 mg PO DAILY 07/05/24 09/28/24 History cholecalciferol (vitamin D3) 50 50 mcg PO DAILY #90 caps 08/17/24 09/28/24 Rx mcg (2,000 unit) capsule digoxin 125 mcg (0.125 mg) tablet 125 mcg PO DAILY 09/28/24 09/28/24 History divalproex 125 mg PO Q8H PRN Agitation 09/28/24 09/28/24 History furosemide 40 mg tablet (Lasix) 40 mg PO DAILY 09/28/24 09/28/24 History metoprolol succinate 100 mg PO DAILY 09/28/24 09/28/24 History polyvinyl alcohol-povidon(PF) 1 drp ophthalmic (eye) DAILY 09/28/24 09/28/24 History quetiapine 100 mg tablet 100 mg PO HS 09/28/24 09/28/24 History senna 1 caplet PO DAILY 09/28/24 09/28/24 History sodium bicarbonate 650 mg tablet 650 mg PO BID 09/28/24 09/28/24 History spironolactone 25 mg PO DAILY 09/28/24 09/28/24 History tamsulosin 0.4 mg PO DAILY 09/28/24 09/28/24 History trazodone 50 mg tablet 25 mg PO HS 09/28/24 09/28/24 History trazodone 50 mg tablet See Rx Instructions .Route .COMPLEX 09/28/24 09/28/24 History Patient History Family History Father Myocardial infarction Denies family history of Ovarian cancer Prostate cancer Breast cancer Colorectal cancer Social History Smoking Status: Former smoker Tobacco Type: Cigarettes Age Started Using Tobacco: 18; Age Quit Using Tobacco: 47; packs per day: 2; Second Hand Exposure: No; Do You Dip or Chew Tobacco: No; Tobacco Cessation Education Requested by Patient: No Hx Alcohol Use: No Hx Substance Use: No Preferred Language: Albanian Communication Ability: Impaired Visual Impairment: No Limitations Hearing Ability: Use of Hearing Aid Transfer Controller Required: No Beliefs That Will Affect Care: None marital status: Current Living Situation: Shelter current occupational status: retired Other Information That Helps Us Care for You: No Feels Safe at Home: Yes Safety Concerns: Feels Safe At This Time Seatbelt Use: always Sunscreen Use: Yes Assistive Devices: Walker and Wheelchair Physical Exam Vital Signs (Past 24 Hours): Last Vital Signs Temp 36.9 C 09/30/24 10:59 Pulse 109 H 09/30/24 10:59 Resp 20 09/30/24 10:59 BP 107/69 09/30/24 10:59 Pulse Ox 91 09/30/24 10:59 O2 Del Method Room Air 09/30/24 10:59 O2 Flow Rate 2 09/30/24 07:08 Results & Data (PSY) Medications Administered Acetaminophen (Acetaminophen 325 Mg Tab) 650 mg PO Q4H PRN PRN Reason: Pain or Fever Stop: 10/26/24 14:35 Last Admin: 09/29/24 05:12 Dose: 650 mg Documented By: GT Artificial Tears (Artificial Tears) 1 drops OP DAILY AUDRA Stop: 10/29/24 08:59 Last Admin: 09/30/24 07:55 Dose: 1 drops Documented By: Admin: 09/29/24 08:52 Dose: 1 drops Documented By: MARGARITAS Aspirin (Aspirin 81 Mg Ectab) 81 mg PO DAILY AUDRA Stop: 10/29/24 08:59 Last Admin: 09/30/24 07:52 Dose: 81 mg Documented By: Admin: 09/29/24 08:47 Dose: 81 mg Documented By: DENISSE Atorvastatin Calcium (Atorvastatin 40 Mg Tab) 40 mg PO QPM AUDRA Stop: 10/26/24 20:59 Last Admin: 09/29/24 20:40 Dose: 40 mg Documented By: Admin: 09/28/24 20:43 Dose: 40 mg Documented By: Admin: 09/27/24 20:13 Dose: Not Given Documented By: Admin: 09/26/24 21:22 Dose: Not Given Documented By: SANTIAGO Digoxin (Digoxin 0.125 Mg Tab) 0.125 mg PO Q24H AUDRA Stop: 10/29/24 15:59 Last Admin: 09/29/24 17:22 Dose: 0.125 mg Documented By: DENISSE Dorzolamide/Timolol (Dorzolamide/Timolol 22.3/6.8mg/Ml 10 Ml Btl) 1 drops OPB BID AUDRA Stop: 10/26/24 20:59 Last Admin: 09/30/24 07:56 Dose: 1 drops Documented By: Admin: 09/29/24 20:40 Dose: 1 drops Documented By: Admin: 09/29/24 08:45 Dose: 1 drops Documented By: Admin: 09/28/24 20:42 Dose: 1 drops Documented By: Admin: 09/28/24 11:08 Dose: 1 drops Documented By: Admin: 09/27/24 20:10 Dose: 1 drops Documented By: Admin: 09/27/24 08:44 Dose: 1 drops Documented By: Admin: 09/26/24 21:22 Dose: Not Given Documented By: HENRY Ferrous Sulfate (Ferrous Sulfate 325 Mg Tab) 325 mg PO Q2D@0900 AUDRA Stop: 10/27/24 08:59 Last Admin: 09/29/24 08:46 Dose: 325 mg Documented By: Admin: 09/27/24 10:48 Dose: Not Given Documented By: MEHUL Finasteride (Finasteride 5 Mg Tab) 5 mg PO DAILY AUDRA Stop: 10/27/24 08:59 Last Admin: 09/30/24 07:56 Dose: 5 mg Documented By: Admin: 09/29/24 08:46 Dose: 5 mg Documented By: Admin: 09/28/24 11:07 Dose: 5 mg Documented By: Admin: 09/27/24 11:59 Dose: Not Given Documented By: MEHUL Furosemide (Furosemide 40 Mg Tab) 40 mg PO QAM AUDRA Stop: 10/29/24 10:59 Last Admin: 09/30/24 07:56 Dose: 40 mg Documented By: KTToño Admin: 09/29/24 11:32 Dose: 40 mg Documented By: DENISSE Haloperidol Lactate (Haloperidol Lactate 5 Mg/Ml 1 Ml Vial) 5 mg IV Q6H PRN PRN Reason: Agitation Stop: 10/26/24 18:02 Last Admin: 09/27/24 23:49 Dose: 5 mg Documented By: Admin: 09/27/24 13:21 Dose: 5 mg Documented By: Admin: 09/26/24 21:49 Dose: 5 mg Documented By: [facility] Valproic Acid 250 mg/ Dextrose 52.5 mls @ 52.5 mls/hr IV Q8H AUDRA Stop: 10/27/24 17:59 Last Infusion: 09/30/24 10:49 Dose: Infused Documented By: Admin: 09/30/24 09:48 Dose: 52.5 mls/hr Documented By: Infusion: 09/30/24 03:07 Dose: Infused Documented By: Admin: 09/30/24 02:07 Dose: 52.5 mls/hr Documented By: Infusion: 09/29/24 18:40 Dose: Infused Documented By: Admin: 09/29/24 17:21 Dose: 52.8 mls/hr Documented By: Infusion: 09/29/24 17:19 Dose: Infused Documented By: Admin: 09/29/24 08:44 Dose: 52.5 mls/hr Documented By: Infusion: 09/29/24 01:47 Dose: Infused Documented By: Admin: 09/29/24 00:47 Dose: 52.5 mls/hr Documented By: Infusion: 09/28/24 19:14 Dose: Infused Documented By: Admin: 09/28/24 18:05 Dose: 52.5 mls/hr Documented By: Infusion: 09/28/24 12:06 Dose: Infused Documented By: Admin: 09/28/24 11:06 Dose: 52.5 mls/hr Documented By: Infusion: 09/28/24 02:41 Dose: Infused Documented By: Admin: 09/28/24 01:41 Dose: 52.5 mls/hr Documented By: Infusion: 09/27/24 19:40 Dose: Infused Documented By: PACKAGING ASSEMBLER Admin: 09/27/24 18:39 Dose: 52.5 mls/hr Documented By: MEHUL Acetaminophen (Ofirmev) 1,000 mg in 100 mls @ 400 mls/hr IV Q8H PRN PRN Reason: Pain or Fever Stop: 09/30/24 19:51 Last Infusion: 09/28/24 04:46 Dose: Infused Documented By: Admin: 09/28/24 04:31 Dose: 400 mls/hr Documented By: Infusion: 09/27/24 20:23 Dose: Infused Documented By: PACKAGING ASSEMBLER Admin: 09/27/24 20:05 Dose: 400 mls/hr Documented By: ALTON Ceftriaxone Sodium (Rocephin) 2,000 mg in 50 mls @ 100 mls/hr IV Q24H [facility] Stop: 10/03/24 11:29 Last Infusion: 09/30/24 13:01 Dose: Infused Documented By: Admin: 09/30/24 12:34 Dose: 100 mls/hr Documented By: Infusion: 09/29/24 18:22 Dose: Infused Documented By: Admin: 09/29/24 13:08 Dose: 100 mls/hr Documented By: Infusion: 09/28/24 12:45 Dose: Infused Documented By: Admin: 09/28/24 12:15 Dose: 100 mls/hr Documented By: VOLODYMYR Insulin Aspart (Insulin Aspart Per Unit Charge) 0 units SC ACHS AUDRA Stop: 10/26/24 18:02 Last Admin: 09/30/24 12:33 Dose: 3 units Documented By: ZANDER Co-signed By: ALLAN Admin: 09/30/24 07:55 Dose: 3 units Documented By: ZANDER Co-signed By: ROB Admin: 09/29/24 20:38 Dose: Not Given Documented By: Admin: 09/29/24 17:19 Dose: Not Given Documented By: Admin: 09/29/24 12:09 Dose: 8 units Documented By: DENISSE Co-signed By: ROB Admin: 09/29/24 08:16 Dose: 5 units Documented By: DENISSE Co-signed By: Admin: 09/28/24 20:42 Dose: 2 units Documented By: FERNY Co-signed By: JUAN JOSE Admin: 09/28/24 18:07 Dose: 3 units Documented By: VOLODYMYR Co-signed By: GUERO Admin: 09/28/24 12:15 Dose: 2 units Documented By: VOLODYMYR Co-signed By: JORDAN Admin: 09/28/24 09:22 Dose: 2 units Documented By: VOLODYMYR Co-signed By: JORDAN Admin: 09/27/24 20:17 Dose: 3 units Documented By: ALTON Co-signed By: TUSHAR Admin: 09/27/24 17:20 Dose: 2 units Documented By: MEHUL Co-signed By: LORENA Admin: 09/27/24 12:08 Dose: 3 units Documented By: MEHUL Co-signed By: LORENA Admin: 09/27/24 08:38 Dose: 3 units Documented By: MEHUL Co-signed By: LORENA Admin: 09/26/24 21:00 Dose: 3 units Documented By: SANTIAGO Co-signed By: FRANCA Admin: 09/26/24 19:35 Dose: Not Given Documented By: SANTIAGO Lisinopril (Lisinopril 5 Mg Tab) 5 mg PO DAILY AUDRA Stop: 10/27/24 08:59 Last Admin: 09/30/24 07:56 Dose: 5 mg Documented By: Admin: 09/29/24 08:46 Dose: 5 mg Documented By: Admin: 09/28/24 11:08 Dose: 5 mg Documented By: Admin: 09/27/24 11:59 Dose: Not Given Documented By: MEHUL Metoprolol Tartrate (Metoprolol Tartrate 1 Mg/Ml Vial) 5 mg IV Q4 PRN PRN Reason: sbp > 185, dbp >95, HR >120 Stop: 10/26/24 18:02 Last Admin: 09/28/24 04:32 Dose: 5 mg Documented By: Admin: 09/27/24 20:04 Dose: 5 mg Documented By: Admin: 09/27/24 14:24 Dose: 5 mg Documented By: MEHUL Metoprolol Tartrate (Metoprolol Tartrate 50 Mg Tab) 50 mg PO BID AUDRA Stop: 10/29/24 11:29 Last Admin: 09/30/24 07:56 Dose: 50 mg Documented By: Admin: 09/29/24 20:41 Dose: 50 mg Documented By: Admin: 09/29/24 11:32 Dose: 50 mg Documented By: DENISSE Olanzapine (Olanzapine Zydis 5 Mg Orally Dis. Tab) 5 mg PO BID AUDRA Stop: 10/27/24 20:59 Last Admin: 09/30/24 07:56 Dose: 5 mg Documented By: Admin: 09/29/24 20:42 Dose: 5 mg Documented By: Admin: 09/29/24 11:12 Dose: 5 mg Documented By: Admin: 09/28/24 20:43 Dose: 5 mg Documented By: Admin: 09/28/24 11:07 Dose: 5 mg Documented By: Admin: 09/27/24 20:24 Dose: 5 mg Documented By: ALTON Ondansetron HCl (Ondansetron Inj 2 Mg/Ml 2 Ml Vial) 4 mg IV Q6H PRN PRN Reason: Nausea Stop: 10/26/24 14:35 Last Admin: 09/28/24 00:01 Dose: 4 mg Documented By: ALTON Pantoprazole Sodium (Pantoprazole 40 Mg Tab) 40 mg PO DAILY AUDRA Stop: 10/27/24 08:59 Last Admin: 09/30/24 07:57 Dose: 40 mg Documented By: Admin: 09/29/24 08:45 Dose: 40 mg Documented By: Admin: 09/28/24 11:08 Dose: 40 mg Documented By: Admin: 09/27/24 10:48 Dose: Not Given Documented By: MEHUL Sodium Bicarbonate (Sodium Bicarbonate 650 Mg Tab) 650 mg PO BID AUDRA Stop: 10/28/24 20:59 Last Admin: 09/30/24 07:57 Dose: 650 mg Documented By: Admin: 09/29/24 20:39 Dose: 650 mg Documented By: Admin: 09/29/24 08:46 Dose: 650 mg Documented By: Admin: 09/28/24 20:44 Dose: 650 mg Documented By: GTH Spironolactone (Spironolactone 25 Mg Tab) 25 mg PO DAILY [facility] Stop: 10/29/24 11:29 Last Admin: 09/30/24 07:57 Dose: 25 mg Documented By: Admin: 09/29/24 13:08 Dose: 25 mg Documented By: DENISSE Tamsulosin HCl (Tamsulosin Hcl 0.4 Mg Cap) 0.4 mg PO DAILY AUDRA Stop: 10/29/24 08:59 Last Admin: 09/30/24 07:57 Dose: 0.4 mg Documented By: Admin: 09/29/24 08:45 Dose: 0.4 mg Documented By: DENISSE Vitamin D (Cholecalciferol 25 Mcg (1000 Units) Tab) 50 mcg PO DAILY [facility] Stop: 10/27/24 08:59 Last Admin: 09/30/24 07:56 Dose: 50 mcg Documented By: Admin: 09/29/24 08:46 Dose: 50 mcg Documented By: Admin: 09/28/24 11:07 Dose: 50 mcg Documented By: Admin: 09/27/24 10:47 Dose: Not Given Documented By: MEHUL Coding Level of Care Code 07039 IN/OBS CONSULT LVL 4,60M Diagnoses Delirium R41.0 Metabolic encephalopathy G93.41 Paroxysmal atrial fibrillation I48.0 Atrial fibrillation type: paroxysmal Increased oxygen demand R68.89 Heart failure I50.9
[2024-09-30] MEDS ORDERED: OLANZapine 10 MG/2.1 ML SDV IM PRN (17:52)
[2024-09-30] MEDS: OLANZapine 10 MG/2.1 ML SDV IM SCH (19:10)
--- NOTE | 2024-09-30 23:06 | Billing Data ---
Date of Service September 30, 2024 Coding Level of Care Code 12427 SUB INP/OBS CARE MIN
--- NOTE | 2024-10-01 07:04 | Hospitalist Progress Note ---
Date of Service October 01, 2024 Assessment & Plan (1) Afib: (2) Increased oxygen demand: (3) Heart failure: (4) Delirium: (5) Metabolic encephalopathy: (6) Hypomagnesemia: (7) Abnormal finding on urinalysis: (8) CKD stage 3b, 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: (9) DM (diabetes mellitus), type 2 with neurological complications: Plan Assessment The patient is a 89-year-old gentleman with a relevant history of stage 3 CKD, HTN, T2DM, CAD, CA, cardiac arrest, and recent CVA who presents emergency department with a chief complaint of worsening kidney function on outpatient lab work. Pt has been at [facility] since discharge from [facility] after hemorrhagic CVA. Pt remains confused but overall less agitated than days prior. Per tele, Pt remained in AFIB overnight with HR in the 110s-150s. PE remarkable for irregular heart rate and rhythm and disorientation to place and time. Soft restraints, petit cath and supplemental O2 has been removed. PLAN #AFIB - AFIB with elevated HR remains per tele. HR has been gradually reducing over the last two days. While resting HR is 89-105, when agitated HR is 120-150. - Continue to PO metoprolol tartrate 50mg BID - IV metoprolol 5mg PRN for HR >120 - Continue home dose of Digoxin 125mcg PO - Continue Telemetry in PCU for AFIB - EKG with chest pain PRN - Hold anticoagulation until 10/03 given recent CVA in accordance with [facility] Neuro recs. [id number] Score = 7, HAS-BLED Score = 6. #Increased Oxygen Demand Due to HFrEF - Continue Lasix to 40mg PO - Continue PO spironolactone 25mg - Pt no longer showing oxygen requirement. Lungs are clear to auscultation and O2 sats are 91-95% on RA #Metabolic Encephalopathy / Delirium - Psych eval completed 09/30, recommendations appreciated and as follows Continue Zyprexa PO 5 mg BID- transition to 2.5mg qam and 5mg qhs (to start 10/02/), then eventually only 5mg qhs Discontinue scheduled IV valproate 10/01 Order ammonia level after stopping IV valproate, added to AM labs for 10/02 Start divalproex PO 125mg PRN for agitation, first agent Recommends Zyprexa IM 2.5mg PRN for increased agitation (second agent) and can increase to IM 5mg if needed (caution not to exceed 10mg total daily) Discontinue use of Haldol PRN - Continue 1:1 supervision - Thiamine level pending. If low, administer thiamine 500units TID IV for two days - Ordered PT/OT eval for resuming activity 2/2 reduction in agitation #Hypomagnesemia - 2g magnesium administered 09/28 - Labs from 09/29 found mag levels at 1.7- Resolved #Abnormal urinalysis - Urine culture from 09/28 positive for E. coli. - Continue IV 2g ceftriaxone q24h, last dose on 10/03 #CKD - Downtrending creatinine (2.08 on 09/30, 1.98 on 10/01) - Petit removed 09/30 - If urinary retention, can replace petit - Bladder scan PRN - Continue monitor CBC and CMP with AM labs #T2DM - BSG fairly well controlled <200 over the last 24 hours. - Continue BSG ACHS - Continue Glargine at 10 units BID - Continue sliding scale insulin starting 09/27 CF 25mg/dL/unit CR 15g/unit - Hold glipizide, dulaglutide, and metformin Chronic conditions: Continue lisinopril po 5 mg Continue finasteride po 5 mg Continue atorvastatin 40mg po Diet: DM2, carb control diet, Easy to chew diet DVT prophylaxis: SCDs Code: DNR/DNI Dispo: PCU/tele Admission and Anticipated Discharge Date Admission Date: September 26, 2024 Supervising Physician Co-Signing Physician Notes Patient was seen and examined independently I discussed the case with Darlin Whitman PGY1 I reviewed pertinent past medical social family history and also the plan of ca re and agree with the plan of care. Patient remains delirious/encephalopathic but calm. He remains in atrial fibrillation with elevated heart rates: HR slightly better now that patient is on scheduled oral beta blockers.. He does have a low-grade temperature but is discovered to have an E. coli urinary tract infection sensitivities are pending could be the cause of his worsening encephalopathy. continue antibiotics, and will initiate thiamine IV Reviewed CBC reviewed chemistry Encephalopathy of unclear etiology: given history likely sequela from stroke however unable to rule out E. coli UTI present on admission on ceftriaxone watch for surveillance for ESBL. mentation is slowly improving. close to baseline. For delirium we will control his behavior with scheduled twice daily oral olanzapine ODT and IV Depakote. He is also on trazodone and Seroquel will not institute those at this time as she is unreliably taking oral intake EFFIE on CKD this is improving Atrial fibrillation, persistent previous problem intermittently taken metoprolol according to staff at group home scheduling metoprolol IV not instituting anticoagulation therapy at this time he is also on digoxin is therapeutic and remains on scheduled dose of intravenous metoprolol dosing also as needed dose needed his infection will not have good rate control until this is completely treated HR appears better controlled. Diabetes patient's oral intake will be unclear we are holding his glipizide dulaglutide and metformin will use sliding scale insulin Once his delirium encephalopathy improved we will consider PT OT evaluation Any exceptions will be noted below Subjective The patient is a 89-year-old gentleman with a relevant history of stage 3 CKD, HTN, T2DM, CAD, CA, cardiac arrest, and recent CVA who presents emergency department with a chief complaint of worsening kidney function on outpatient lab work. Pt has been at [facility] since this past , while there is had issues with delirium as well as an up trending creatinine. Overnight, telemetry reports pt continues in a-fib with average of 130's. Nursing reports continued confusion, but no combative behavior. Pt reported awake most the of night This morning, pt is asleep but arousable for a few minutes. He is cooperative to exam and answers questions. Pt denies pain, SOB or nausea. Review of Systems Review of Systems: As per HPI Physical Exam Physical Exam: General: Pt was asleep, but arousable. Pt was only oriented to self. Pt was able to answer questions. HEENT: Eyes are clear, he is hard of hearing, trachea is midline, no lymphadenopathy. Pt is mouth breathing, occasional snoring when falling back to sleep. Heart: Irregular rate and rhythm, no rubs, murmurs, or gallops. Lungs: Respirations were non-labored without crackles, wheezes, rhonchi. Abd: Non distended, soft, normoactive bowel sounds appreciated. Peripheries: No peripheral edema. No psychomotor agitation, mild tremor of the RUE. Results & Data Results & Data Vital Signs (Past 12 Hours) Vital Signs Temp Pulse Pulse Resp BP Pulse Ox O2 Del Method 10/01/24 05:25 36.7 C 100 H 18 120/78 92 Room Air 10/01/24 05:13 100 H 09/30/24 19:33 36.4 C L 105 H 18 117/82 91 Room Air Resident Activity Tracking Resident Involvement: Resident Care Provided Care Provided: Adult Hospital Medicine (1) Afib Atrial fibrillation type: paroxysmal Qualified Code(s): I48.0 - Paroxysmal atrial fibrillation
[2024-10-01 07:30] LABS: Basophils # (auto) 0.05 K/uL (0.00-0.20); Basophils % (auto) 0.7 %; Eosinophils # (auto) 0.39 K/uL (0.00-0.50); Eosinophils % (auto) 5.7 %; Hematocrit (blood only) 39.9 % (42.0-52.0); Hemoglobin 12.6 g/dl (14.0-18.0); Immature Granulocytes # (auto) 0.04 K/uL (0.01-0.20); Immature Granulocytes % (auto) 0.6 %; Lymphocytes # (auto) 1.41 K/uL (1.20-3.40); Lymphocytes % (auto) 20.7 %; Mean Corpuscular Hemoglobin 27.9 pg (25.0-34.0); Mean Corpuscular Hgb Conc 31.6 g/dL (32.0-36.0); Mean Corpuscular Volume 88.3 fL (80.0-100.0); Mean Platelet Volume 10.5 fL (9.4-12.4); Monocytes # (auto) 0.71 K/uL (0.11-0.59); Monocytes % (auto) 10.4 %; Neutrophils # (auto) 4.22 K/uL (1.40-6.50); Neutrophils % (auto) 61.9 %; Platelet Count 243 K/uL (130-400); RDW Coefficient of Variation 14.1 % (11.5-14.5); RDW Standard Deviation 44.9 fL (36.4-46.3); Red Blood Count 4.52 M/uL (4.70-6.10); White Blood Count 6.82 K/ul (4.8-10.8)
[2024-10-01 07:53] LABS: BUN Creatinine Ratio 15.2 (10-20); Creatinine Clr Calc Pharmacy 26.3 ml/min
[2024-10-01] MEDS: DIVALPROEX SODIUM SPRINKLE/DEL-REL 125 MG CAP PO PRN (15:49)
[2024-10-01] MEDS: MICONAZOLE NITRATE POWDER 85 GM EXT SCH (20:59)
[2024-10-01] MEDS: OLANZapine ZYDIS 5 MG ORALLY DIS. TAB PO SCH (21:00)
--- NOTE | 2024-10-01 22:20 | Billing Data ---
Date of Service October 01, 2024 Coding Level of Care Code 72752 SUB INP/OBS CARE MIN
[2024-10-02 05:56] LABS: Basophils # (auto) 0.06 K/uL (0.00-0.20); Basophils % (auto) 0.8 %; Eosinophils # (auto) 0.58 K/uL (0.00-0.50); Eosinophils % (auto) 7.5 %; Hematocrit (blood only) 37.7 % (42.0-52.0); Hemoglobin 12.3 g/dl (14.0-18.0); Immature Granulocytes # (auto) 0.04 K/uL (0.01-0.20); Immature Granulocytes % (auto) 0.5 %; Lymphocytes # (auto) 1.85 K/uL (1.20-3.40); Lymphocytes % (auto) 23.9 %; Mean Corpuscular Hemoglobin 28.5 pg (25.0-34.0); Mean Corpuscular Hgb Conc 32.6 g/dL (32.0-36.0); Mean Corpuscular Volume 87.3 fL (80.0-100.0); Mean Platelet Volume 10.5 fL (9.4-12.4); Monocytes % (auto) 10.3 %; Neutrophils # (auto) 4.42 K/uL (1.40-6.50); Platelet Count 242 K/uL (130-400); RDW Standard Deviation 44.7 fL (36.4-46.3); Red Blood Count 4.32 M/uL (4.70-6.10); White Blood Count 7.75 K/ul (4.8-10.8)
[2024-10-02 06:09] LABS: BUN Creatinine Ratio 16.6 (10-20); Calcium 9.3 mg/dl (8.6-10.3); Creatinine Clr Calc Pharmacy 28.3 ml/min; Potassium 4.1 mmol/L (3.5-5.1)
--- NOTE | 2024-10-02 07:09 | Hospitalist Progress Note ---
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 Pt remains confused and agitated, but improved as he is no longer combative and redirectable. Per tele, Pt remains in A-fib with HR in the 80s-120s. PE remarkable for irregular heart rate and rhythm and disorientation to place and time. Soft restraints, petit cath and supplemental O2 were removed 09/30 and have not been reinstated. PLAN #AFIB - AFIB with elevated HR remains per tele. HR has been gradually reducing over the last two days. While resting HR is 89-105, when agitated HR is 110-130. - Continue to PO metoprolol tartrate 50mg BID, switch to Metoprolol succinate 100mg qam on 10/03 - IV metoprolol 5mg PRN for HR >120 - Continue home dose of Digoxin 125mcg PO - Continue Telemetry in PCU for AFIB - EKG with chest pain PRN - Hold anticoagulation until 10/03 given recent CVA in accordance with [facility] Neuro recs. [id number] Score = 7, HAS-BLED Score = 6. Consider starting heparin 5000 units BID on 10/03 #HFrEF - Continue Lasix to 40mg PO - Continue PO spironolactone 25mg - Currently on RA with nomral O2 sat, supplemental O2 PRN for sats<90% #Metabolic Encephalopathy / Delirium - Psych eval completed 09/30, recommendations appreciated and as follows Continue Zyprexa PO 2.5mg qam and 5mg qhs and plan to transition to 5mg qhs only Ammonia level is <10 Zyprexa IM 2.5mg PRN for increased agitation- First agent (can increase to IM 5mg if needed -caution not to exceed 10mg total daily Divalproex PO 125mg PRN for agitation, Second agent - Continue 1:1 supervision - Thiamine level pending. If low, administer thiamine 500units TID IV for two days - Ordered PT/OT eval for resuming activity 2/2 reduction in agitation - Palliative care consult requested per family request to discuss goals of care/hospice care #Hypomagnesemia - 2g magnesium administered 09/28 - Labs from 09/29 found mag levels at 1.7- Resolved #Abnormal urinalysis - Urine culture from 09/28 positive for E. coli. - Continue IV 2g ceftriaxone q24h, last dose on 10/03 #CKD - Creatinine stabilizing (1.98 on 10/01, 1.99 on 10/02) - Petit removed 09/30 - If urinary retention, can replace petit - Bladder scan PRN - Continue monitor CBC and CMP with AM labs #T2DM - BSG fairly well controlled <200 over the last 24 hours. - Continue BSG ACHS - Continue Glargine at 10 units BID - Continue sliding scale insulin starting 09/27 CF 25mg/dL/unit CR 15g/unit - Hold glipizide, dulaglutide, and metformin Chronic conditions: Continue lisinopril po 5 mg Continue finasteride po 5 mg Continue atorvastatin 40mg po Diet: DM2, carb control diet, Easy to chew diet DVT prophylaxis: SCDs Code: DNR/DNI Dispo: PCU/tele Admission and Anticipated Discharge Date Admission Date: September 26, 2024 Supervising Physician Co-Signing Physician Notes Patient was seen and examined independently I discussed the case with Darlin Whitman PGY1 I reviewed pertinent past medical social family history and also the plan of care and agree with the plan of care. Patient remains delirious/encephalopathic but calm. Now off petit. He remains in atrial fibrillation with elevated heart rates: but HR continues to trend in the right direction now that patient is on scheduled oral beta blockers. continue antibiotics for UTI, and will continue thiamine IV Reviewed CBC reviewed chemistry Encephalopathy of unclear etiology: given history likely sequela from stroke however unable to rule out E. coli UTI present on admission on ceftriaxone watch for surveillance for ESBL. mentation is slowly improving. close to baseline. For delirium we will control his behavior with scheduled twice daily oral olanzapine ODT and po Depakote. 5MG OF OLANZAPINE IN PM AND 2.5 MG IN AM EFFIE on CKD this is improving Atrial fibrillation, persistent previous problem intermittently taken metoprolol according to staff at skilled nursing scheduling metoprolol IV not instituting anticoagulation therapy at this time he is also on digoxin is therapeutic and remains on scheduled dose of intravenous metoprolol dosing also as needed dose needed his infection will not have good rate control until this is completely treated HR appears better controlled. Diabetes patient's oral intake will be unclear we are holding his glipizide dulaglutide and metformin will use sliding scale insulin GIVEN DELIRIUM IS NOT IMPROVING. LIKELY WILL TANSITION TO HOSPICE. Subjective The patient is a 89-year-old gentleman with a relevant history of stage 3 CKD, HTN, T2DM, CAD, NM, cardiac arrest, and recent CVA who presents emergency department with a chief complaint of worsening kidney function on outpatient lab work. Pt has been at [facility] since this past 09/22, while there is had progressive AMS as well as an up trending creatinine. Overnight, telemetry reports continued a-fib with rates in the low 100's. Nursing reports outburst overnight and minimal sleep. Tried Depakote po, but with minimal improvement. This morning, pt is awake, eyes are closed but answering questions when asked and conversing. Pt follows commands, but requires frequent redirecting. Oriented to self only. Review of Systems Review of Systems: As per HPI Physical Exam Physical Exam: General: Pt was awake and following commands. Pt was only oriented to self. Pt was able to answer questions and converse. HEENT: Eyes are clear, he is hard of hearing, trachea is midline, no lymphadenopathy, MMM Heart: Irregular rate and rhythm, no rubs, murmurs, or gallops. No JVD Lungs: Respirations were non-labored without crackles, wheezes, rhonchi. Abd: Non distended, soft, normoactive bowel sounds appreciated. Peripheries: No peripheral edema. No psychomotor agitation, mild tremor of the RUE. Results & Data Results & Data Vital Signs (Past 12 Hours) Vital Signs Temp Pulse Pulse Pulse Resp BP Pulse Ox 10/02/24 05:04 85 10/02/24 04:55 36.5 C 95 H 18 127/71 92 10/01/24 19:12 36.9 C 112 H 156/78 H 96 O2 Del Method 10/02/24 05:04 10/02/24 04:55 Room Air 10/01/24 19:12 Room Air Resident Activity Tracking Resident Involvement: Resident Care Provided Care Provided: Adult Hospital Medicine (1) Afib Atrial fibrillation type: paroxysmal Qualified Code(s): I48.0 - Paroxysmal atrial fibrillation
[2024-10-02] MEDS: OLANZAPINE 2.5 MG TAB PO SCH (08:16)
[2024-10-02] MEDS ORDERED: OLANZapine 10 MG/2.1 ML SDV IM PRN (13:22)
[2024-10-02] MEDS ORDERED: DIVALPROEX SODIUM SPRINKLE/DEL-REL 125 MG CAP PO PRN (13:24)
[2024-10-03 06:32] LABS: Basophils # (auto) 0.05 K/uL (0.00-0.20); Basophils % (auto) 0.7 %; Eosinophils # (auto) 0.49 K/uL (0.00-0.50); Eosinophils % (auto) 7.2 %; Hematocrit (blood only) 36.1 % (42.0-52.0); Hemoglobin 11.6 g/dl (14.0-18.0); Immature Granulocytes # (auto) 0.06 K/uL (0.01-0.20); Immature Granulocytes % (auto) 0.9 %; Lymphocytes # (auto) 1.53 K/uL (1.20-3.40); Lymphocytes % (auto) 22.6 %; Mean Corpuscular Hemoglobin 28.1 pg (25.0-34.0); Mean Corpuscular Hgb Conc 32.1 g/dL (32.0-36.0); Mean Corpuscular Volume 87.4 fL (80.0-100.0); Mean Platelet Volume 10.4 fL (9.4-12.4); Monocytes % (auto) 10.4 %; Neutrophils # (auto) 3.93 K/uL (1.40-6.50); Neutrophils % (auto) 58.2 %; Platelet Count 203 K/uL (130-400); RDW Coefficient of Variation 14.2 % (11.5-14.5); RDW Standard Deviation 44.1 fL (36.4-46.3); Red Blood Count 4.13 M/uL (4.70-6.10); White Blood Count 6.76 K/ul (4.8-10.8)
[2024-10-03 07:01] LABS: Anion Gap 8 (3-11); BUN Creatinine Ratio 15.6 (10-20); Blood Urea Nitrogen 35 mg/dl (6-23); Carbon Dioxide 30 mmol/L (21-32); Chloride 104 mmol/L (98-107); Creatinine Clr Calc Pharmacy 23.2 ml/min; Glucose 148 mg/dl (70-99(Fasting)); Sodium 142 mmol/L (136-145)
--- NOTE | 2024-10-03 08:01 | Billing Data ---
Date of Service October 02, 2024 Coding Level of Care Code 50510 SUB INP/OBS CARE MIN
[2024-10-03] MEDS: METOPROLOL SUCC 50MG EXT REL TAB PO SCH (08:42)
--- NOTE | 2024-10-03 08:55 | Palliative Care Consultation ---
Date of Consultation October 03, 2024 Assessment & Plan (1) Palliative care by specialist: Met with pt's son/DARVIN Brandt in conference room. Lengthy (45 minute) conversation held concerning ACP, goals of care and comfort directed care as described below. Introduced Palliative Medicine and explained our role in advanced care planning, symptom management and navigation through the progression of life limiting disease. Walter was receptive to palliative services for goals of care discussions. Reviewed we are different from hospice, a home health nurse visiting service. (2) Advanced care planning/counseling discussion: Discussed ACP/GOC with son for 45 minutes. Topics discussed included Pt values and goals, chronic and acute medical issues, quality of life, hospice care, and roles in the care of pt's with life limiting disease of palliative care vs hospice. (3) Counseling regarding goals of care: Discussed pt's QOL and current admission course. Anatoly shared tht the pt has had a steady decrease in cognitive and functional ability since his CVA. He shared that he has been considering if it maybe time for hospice. Discussed hospice benefit: an interdisciplinary program offered by nurses, nurses aides, social workers, chaplains and a neuropsychology medical consultant for patients with a terminal condition and a life expectancy of less than 6 months. This is covered by Medicare at 100%/no out of pocket expense to patient and all meds/supplies needed by patient for the reason they are on hospice are paid for/covered by hospice. The goal is assure quality of life of the patient in their home setting (home, shelter, inpatient hospice setting) by providing symptoms management, psychosocial and spiritual support. However, they cannot offer 24 hours care and if the family is unable to provide that care, they will have to consider personal care with out of pocket cost vs. shelter placement. We discussed the goals of hospice as a patient service and the goals of care; we discussed EOL trajectories and transitions cristi the emotional impact of realizing mortality as a concrete reality from prior abstract considerations. Pt was reassured that no matter where they are along this trajectory, they are not alone - their medical team will remain by their side through their journey. Discussed the pros/cons of accepting help when especially weakened and distressed by pain-which would also help provide relief/decrease caregiver burden/strain. Walter shared that he and the family have been discussing the pt's poor quality of life even before his stroke and that the pt expressed that he was suffering and "just wiating to ". Walter expressed concern that the best he would expect the pt to acheive cognitively would be less than what was already considered poor quality of life. Walter requests transition to comfort dorected care at this time. (4) Comfort measures only status: Walter requests transition to comfort directed care today with plan for return to [facility] for ongoing end of life/hospice care. (5) Need for comfort care: EOL Symptom management: Continue olanzapine per psych Pain/dyspnea/tachypnea morphine 2mg IVP PRN [id number] Consider titratable morphine drip if pt requires >3 PRN doses in under two consecutive hours. Nausea/vomitting zofran 4mg IVP q4h PRN Agitation ativan 0.5mg IVP q4h PRN Hyperactive delirium haldol 5mg IVP q6h PRN Secretions - if repositioning not effective robinul 0.4mg IV q4h PRN atropine SL 3 drops Q1h PRN Nursing care: Discontinue all medications not directed towards comfort. Detether pt from IV tubing, monitor cables, and check vitals once per shift. Please continue HFNC and titrate down as able for patient comfort. Use medications above PRN for dyspnea/tachypnea and do not increase oxygen once titrated down. Assess q1h for pain/dyspnea and treat accordingly. Plan see above History of Present Illness Reason for Consultation: goals of care Requesting Physician: Aurelio Tracy Attending Physician: Aurelio Tracy History of Present Illness Mr. Brandt is 89y gentleman with PMHx including stage 3 CKD, HTN, T2DM, CAD, [place], cardiac arrest, and recent CVA who was sent to ED on 09/26 from [facility] with worsening kidney function on outpatient lab work. Pt has been at [facility] since 09/22/24, while there has had issues with delirium and up trending creatinine. Allergies Allergy/AdvReac Type Severity Reaction Status Date / Time No Known Allergies Allergy Mild Unverified 08/11/24 12:50 Home Medications Medication Instructions Recorded Confirmed Type dorzolamide 22.3 mg-timolol 6.8 1 drp OPB BID 12/10/22 09/28/24 History mg/mL eye drops blood sugar diagnostic #100 ea 10/06/23 08/11/24 Rx lancets (Accu-Chek Fastclix Lancet #100 ea 10/06/23 08/11/24 Rx Drum) cyclosporine 0.05 % eye drops 1 drp OPB BID 11/04/23 09/28/24 History aspirin 81 mg tablet,delayed 81 mg PO DAILY #90 tabs 12/25/23 09/28/24 Rx release (Adult Low Dose Aspirin) lisinopril 5 mg tablet 5 mg PO DAILY #90 tabs 01/06/24 09/28/24 Rx ferrous sulfate 325 mg (65 mg 325 mg PO Q2D #90 tabs 01/12/24 09/28/24 Rx iron) tablet pantoprazole 40 mg tablet,delayed 40 mg PO DAILY #90 tabs 01/12/24 09/28/24 Rx release (Protonix) metformin 500 mg tablet,extended 1,000 mg (2 x 500 mg) PO BID #360 02/09/24 09/28/24 Rx release 24 hr tabs acetaminophen 325 mg tablet 325 mg PO QID PRN pain #30 tabs 05/18/24 09/28/24 Rx (Tylenol) dulaglutide 4.5 mg/0.5 mL 4.5 mg (0.5 mL) subcut .weekly #2 05/18/24 09/28/24 Rx subcutaneous pen injector mL (Trulicity) finasteride 5 mg tablet (Proscar) 5 mg PO DAILY #90 tabs 05/18/24 09/28/24 Rx atorvastatin 40 mg tablet 40 mg PO QPM #90 tabs 07/05/24 09/28/24 Rx melatonin 5 mg capsule 5 mg PO DAILY 07/05/24 09/28/24 History cholecalciferol (vitamin D3) 50 50 mcg PO DAILY #90 caps 08/17/24 09/28/24 Rx mcg (2,000 unit) capsule digoxin 125 mcg (0.125 mg) tablet 125 mcg PO DAILY 09/28/24 09/28/24 History divalproex 125 mg PO Q8H PRN Agitation 09/28/24 09/28/24 History furosemide 40 mg tablet (Lasix) 40 mg PO DAILY 09/28/24 09/28/24 History metoprolol succinate 100 mg PO DAILY 09/28/24 09/28/24 History polyvinyl alcohol-povidon(PF) 1 drp ophthalmic (eye) DAILY 09/28/24 09/28/24 History quetiapine 100 mg tablet 100 mg PO HS 09/28/24 09/28/24 History senna 1 caplet PO DAILY 09/28/24 09/28/24 History sodium bicarbonate 650 mg tablet 650 mg PO BID 09/28/24 09/28/24 History spironolactone 25 mg PO DAILY 09/28/24 09/28/24 History tamsulosin 0.4 mg PO DAILY 09/28/24 09/28/24 History trazodone 50 mg tablet 25 mg PO HS 09/28/24 09/28/24 History trazodone 50 mg tablet See Rx Instructions .Route .COMPLEX 09/28/24 09/28/24 History Patient History Family History Father Myocardial infarction Denies family history of Ovarian cancer Prostate cancer Breast cancer Colorectal cancer Social History Smoking Status: Former smoker Tobacco Type: Cigarettes Age Started Using Tobacco: 18; Age Quit Using Tobacco: 47; packs per day: 2; Second Hand Exposure: No; Do You Dip or Chew Tobacco: No; Tobacco Cessation Education Requested by Patient: No Hx Alcohol Use: No Hx Substance Use: No Preferred Language: Lao Communication Ability: Impaired Visual Impairment: No Limitations Hearing Ability: Use of Hearing Aid 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 Required: No Beliefs That Will Affect Care: Cultural marital status: Current Living Situation: Intermediate current occupational status: retired Other Information That Helps Us Care for You: No Feels Safe at Home: Yes Safety Concerns: Feels Safe At This Time Seatbelt Use: always Sunscreen Use: Yes Assistive Devices: Walker and Wheelchair Review of Systems Review of Systems: Unobtainable due to cognitive status Physical Exam Constitutional: + ill appearing, + altered mental status and + lethargic Eyes: PERRL, conjunctivae normal, anicteric sclerae ENMT: external ear and nose normal, oropharynx normal Neck: trachea midline, no thyromegaly Respiratory: normal respiratory effort, lungs clear to auscultation Gastrointestinal (Abdomen): normal bowel sounds, soft, nontender, no hepatosplenomegaly Musculoskeletal: MACE with strength and purpose, uncooperative Skin: no rashes, warm and dry Results & Data Vital Signs (Past 12 Hours) Vital Signs Temp Pulse Pulse Resp BP BP Pulse Ox 10/03/24 07:00 36.6 C 86 17 142/75 H 93 10/03/24 03:17 36.5 C 98 H 20 130/76 98 10/02/24 23:31 36.5 C 92 H 18 127/64 96 10/02/24 22:14 92 H O2 Del Method 10/03/24 07:00 Room Air 10/03/24 03:17 Room Air 10/02/24 23:31 Room Air 10/02/24 22:14 Laboratory Results Abnormal lab results 10/02/24 10/03/24 10/03/24 Range/Units 20:25 05:46 07:43 RBC 4.13 L (4.70-6.10) M/uL Hgb 11.6 L (14.0-18.0) g/dl Hct 36.1 L (42.0-52.0) % [place] # (Auto) 0.70 H (0.11-0.59) K/uL BUN 35 H (6-23) mg/dl Creatinine 2.24 H (0.6-1.4) mg/dl Glucose 148 H (70-99(Fasting)) mg/dl POC Glucose 151 H 149 H (70-99) mg/dl Diagnostic Findings Chest X-Ray 09/26/24 11:28 XR chest 1V portable CLINICAL HISTORY: weakness COMPARISON STUDY: 09/05/2024 FINDINGS: Cardiac loop recorder is present. There is stable cardiomegaly without pulmonary vascular congestion. Inspiration is shallow. No effusion, consolidation, or pneumothorax. IMPRESSION: Shallow inspiration. No acute findings seen. ACT 112: Negative or not required by law. Electronically signed by: Emanuel Hernandez M.D. 09/26/2024 12:[address] 09/27/24 07:55 CT head/brain wo con CLINICAL HISTORY: 89 years-old Male with Change in Mental Status. Acutely altered mental status TECHNIQUE: Multiple axial CT images of the head were obtained without contrast. A dose lowering technique was utilized adhering to the principles of ALARA. CT DOSE: 1874.62 mGy.cm COMPARISON: September 26, 2024, 09/05/2024 FINDINGS: Study is motion degraded. No acute intracranial hemorrhage, midline shift or mass effect is present. As per discussed there are expected evolution or changes of the intraparenchymal hemorrhage within the left temporal lobe since CT of September 05, 2024. Size and attenuation of the hemorrhage has significantly decreased study, however is generally unchanged from yesterday's exam. Adjacent hypodensity is similar to prior exam. Minimal associated mass effect again noted. Ventricular system is unremarkable. The basal cisterns are patent. 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 Encephalomalacia within left parietal lobe is unchanged. There are no findings to suggest acute dural sinus thrombosis or acute territorial infarct. There are no calvarial fractures. As before, the frontal sinuses are opacified. IMPRESSION: 1. No acute intracranial findings. Mild motion artifact. 2. Stable exam from yesterday's study with expected evolution of the left temporal lobe intraparenchymal hemorrhage shown on CT of September 05, 2024. Adjacent hypodensity is similar to prior exam. This could represent vasogenic edema or a subacute infarct. ACT 112: Negative or not required by law. The above report was generated using voice recognition software. It may contain grammatical, syntax or spelling errors. Electronically signed by: Andrew Kaplan M.D. 09/27/2024 8:41 AM Medications Administered Current Inpatient Medications Acetaminophen (Acetaminophen 325 Mg Tab) 650 mg PO Q4H PRN PRN Reason: Pain or Fever Stop: 10/26/24 14:35 Last Admin: 09/29/24 05:12 Dose: 650 mg Artificial Tears (Artificial Tears) 1 drops OP QID PRN PRN Reason: Dryness Stop: 10/26/24 19:17 Artificial Tears (Artificial Tears) 1 drops OP DAILY AUDRA Stop: 10/29/24 08:59 Last Admin: 10/03/24 08:44 Dose: 1 drops Atropine Sulfate (Atropine Sulfate 1% Op Soln 5 Ml Btl) 4 drops SL Q1H PRN PRN Reason: Secretions or pulm congestion Stop: 11/02/24 13:44 Digoxin (Digoxin 0.125 Mg Tab) 0.125 mg PO Q24H AUDRA Stop: 10/29/24 15:59 Last Admin: 10/02/24 17:39 Dose: 0.125 mg Divalproex Sodium (Divalproex Sodium Sprinkle/Del-Rel 125 Mg Cap) 125 mg PO Q8H PRN PRN Reason: Agitation- USE SECOND Stop: 10/31/24 11:01 Dorzolamide/Timolol (Dorzolamide/Timolol 22.3/6.8mg/Ml 10 Ml Btl) 1 drops OPB BID [facility] Stop: 10/26/24 20:59 Last Admin: 10/03/24 08:43 Dose: 1 drops Finasteride (Finasteride 5 Mg Tab) 5 mg PO DAILY [facility] Stop: 10/27/24 08:59 Last Admin: 10/03/24 08:41 Dose: 5 mg Furosemide (Furosemide 40 Mg Tab) 40 mg PO QAM [facility] Stop: 10/29/24 10:59 Last Admin: 10/03/24 08:42 Dose: 40 mg Glycopyrrolate (Glycopyrrolate 0.2 Mg/Ml Vial) 0.4 mg IV Q4H PRN PRN Reason: Rattling Secretions or Pulm Congestion Stop: 11/02/24 13:44 Haloperidol (Haloperidol Oral Soln 2 Mg/Ml) 0.5 mg PO Q4H PRN PRN Reason: Anxiety/Agitation Stop: 11/02/24 13:44 Lorazepam (Lorazepam 2 Mg/1 Ml Vial) 0.5 mg IV Q4H PRN PRN Reason: Anxiety/Agitation Stop: 11/02/24 13:44 Metoprolol Succinate (Metoprolol Succ 50mg Ext Rel Tab) 100 mg PO QAM [facility] Stop: 11/02/24 08:59 Last Admin: 10/03/24 08:42 Dose: 100 mg Metoprolol Tartrate (Metoprolol Tartrate 1 Mg/Ml Vial) 5 mg IV Q4 PRN PRN Reason: sbp > 185, dbp >95, HR >120 Stop: 10/26/24 18:02 Last Admin: 09/28/24 04:32 Dose: 5 mg Miconazole Nitrate (Miconazole Nitrate Powder 85 Gm) 1 appln EXT BID [facility] Stop: 10/08/24 20:59 Last Admin: 10/02/24 19:57 Dose: 1 appln Morphine Sulfate (Morphine Sulfate 10 Mg/0.5 Ml Udp) 5 mg PO Q3H PRN PRN Reason: Pain or Respiratory Distress Stop: 10/17/24 13:44 Olanzapine (Olanzapine Zydis 5 Mg Orally Dis. Tab) 5 mg PO HS [facility] Stop: 10/31/24 20:59 Last Admin: 10/02/24 19:52 Dose: 5 mg Olanzapine (Olanzapine 2.5 Mg Tab) 2.5 mg PO QAM AUDR[facility] Stop: 11/01/24 08:59 Last Admin: 10/03/24 08:42 Dose: 2.5 mg Olanzapine (Olanzapine 10 Mg/2.1 Ml Sdv) 2.5 mg IM Q6H PRN PRN Reason: Agitation-USE FIRST Stop: 10/30/24 17:49 Ondansetron HCl (Ondansetron Inj 2 Mg/Ml 2 Ml Vial) 4 mg IV Q6H PRN PRN Reason: Nausea Stop: 10/26/24 14:35 Last Admin: 09/28/24 00:01 Dose: 4 mg Ondansetron HCl (Ondansetron Inj 2 Mg/Ml 2 Ml Vial) 4 mg IV Q4H PRN PRN Reason: Nausea &/or Vomiting Stop: 11/02/24 13:44 Spironolactone (Spironolactone 25 Mg Tab) 25 mg PO DAILY AUDRA Stop: 10/29/24 11:29 Last Admin: 10/03/24 08:42 Dose: 25 mg Tamsulosin HCl (Tamsulosin Hcl 0.4 Mg Cap) 0.4 mg PO DAILY AUDR[facility] Stop: 10/29/24 08:59 Last Admin: 10/03/24 08:41 Dose: 0.4 mg PG Care Time/CCT Total # of Minutes Spent Total Time Spent with Patient: Total time spent is greater than 50% in coordination of care (as documented) at patient's floor/unit and/or counseling patient: Advanced Care Planning 97942 Advanced Care Planning 30 [place] [address] IN/OBS CONSULT LVL 3,45M Patient Type New History Problem Focused Exam Problem Focused Medical Decision Making Moderate Complexity Diagnoses Palliative care by specialist Z51.5 Advanced care planning/counseling discussion Z71.89 Counseling regarding goals of care Z71.89 Comfort measures only status Z51.5 Need for comfort care Additional Codes Advanced Care Planning - 34077 Advanced Care Planning 30 Min: 91181 Advanced Care Planning 30 Min ([id number])
[2024-10-03 10:29] VITALS: RESP 18
[2024-10-03] MEDS ORDERED: GLYCOPYRROLATE 0.2 MG/ML VIAL IV PRN (13:45)
[2024-10-03] MEDS ORDERED: ONDANSETRON INJ 2 MG/ML 2 ML VIAL IV PRN (13:45)
[2024-10-03] MEDS ORDERED: ATROPINE SULFATE 1% OP SOLN 5 ML BTL SL PRN (13:45)
[2024-10-03 15:19] VITALS: TEMP 97.5; O2SAT 91
--- NOTE | 2024-10-03 16:23 | Palliative Care Progress Note ---
Date of Service October 03, 2024 Assessment & Plan (1) Cognitive impairment: Plan: MoCa testing done as part of ACP see below (2) Palliative care by specialist: (3) Advanced care planning/counseling discussion: Plan: MoCA 03/25 See scanned test above, original is with his unit paper chart Severe cognitive impairment He is not decisionally intact He does not have decisional capacity He needs a surrogate decision maker -activate dPOA now. Plan As above Walter needs his dPOA activated now, he is no longer able to make decisions. Thank you for allowing us to participate in the ongoing care of this patient. Please page with any additional concerns. Mark Harden DNP Director, Palliative Medicine Admission and Anticipated Discharge Date Admission Date: September 26, 2024 Subjective ACP for MoCA See below Review of Systems 2 Review of Systems: Unobtainable due to cognitive status Physical Exam 2 Physical Exam: MOCA cognitive testing, which stands for "[place] Cognitive Assessment," jessica brief screening tool used to assess various cognitive domains like memory, attention, language, visuospatial skills, and executive function, primarily to detect mild cognitive impairment (MCI) or early signs of dementia;it's a quick, paper-based test that takes around 10 minutes to administer and is scored out of 30 points. A MoCA was administered at bedside; Walter's score was 8/30; this is indicative of Severe cognitive impairment is a score below 10 The MoCA Evaluates seven domains of cognitive function. The MoCA has a maximum score of 30, and anything below 26 is a sign of cognitive impairment. Walter's results scanned below: Saxena points about MoCA scores: * Normal range:26 or above * Mild cognitive impairment:18-25 * Moderate cognitive impairment:10-17 * Severe cognitive impairment:Below 10 Results & Data Vital Signs (Past 12 Hours) Vital Signs Temp Pulse Resp BP BP Pulse Ox O2 Del Method 10/03/24 15:19 36.4 C L 97 H 18 137/72 91 Room Air 10/03/24 10:27 112 H 18 158/71 H 97 Room Air 10/03/24 07:00 36.6 C 86 17 142/75 H 93 Room Air PG Care Time/CCT Total # of Minutes Spent Total Time Spent: 45 Total Time Spent with Patient: Total time spent is greater than 50% in coordination of care (as documented) at patient's floor/unit and/or counseling patient: Advanced Care Planning 10785 Advanced Care Planning 30 Min 94013 Advanced Care Planning Additional 30 Min Coding Level of Care Code Established Pt None Patient Type Established Medical Decision Making High Complexity Diagnoses Cognitive impairment R41.89 Palliative care by specialist Z51.5 Advanced care planning/counseling discussion Z71.89 Additional Codes Advanced Care Planning - 86636 Advanced Care Planning 30 Min: 79616 Advanced Care Planning 30 Min ([id number]) Advanced Care Planning - 23981 Advanced Care Planning Additional 30 Min: 78612 Advanced Care Planning Additional 30 Min ([id number]) Time Spent (min) 45 Comment [id number] ACP doing MoCA
[2024-10-03] MEDS: LORazepam 2 MG/1 ML VIAL IV PRN (18:18)
--- NOTE | 2024-10-03 23:19 | Hospitalist Progress Note ---
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 Pt remains confused and agitated, but improved as he is no longer combative and redirectable. Per tele, Pt remains in A-fib with HR in the 80s-120s. PE remarkable for irregular heart rate and rhythm and disorientation to place and time. Soft restraints, petit cath and supplemental O2 were removed 09/30 and have not been reinstated. PLAN #AFIB - AFIB with elevated HR remains per tele. HR has been gradually reducing over the last two days. While resting HR is 89-105, when agitated HR is 110-130. - Continue to PO metoprolol tartrate 50mg BID, switch to Metoprolol succinate 100mg qam on 10/03 - IV metoprolol 5mg PRN for HR >120 - Continue home dose of Digoxin 125mcg PO - Continue Telemetry in PCU for AFIB - EKG with chest pain PRN - Hold anticoagulation until 10/03 given recent CVA in accordance with [facility] Neuro recs. [id number] Score = 7, HAS-BLED Score = 6. On 10/03, patient transitioned to CORD MAKER. transfer to medical. #HFrEF - Continue Lasix to 40mg PO - Continue PO spironolactone 25mg - Currently on RA with nomral O2 sat, supplemental O2 PRN for sats<90% #Metabolic Encephalopathy / Delirium - Psych eval completed 09/30, recommendations appreciated and as follows Continue Zyprexa PO 2.5mg qam and 5mg qhs and plan to transition to 5mg qhs only Ammonia level is <10 Zyprexa IM 2.5mg PRN for increased agitation- First agent (can increase to IM 5mg if needed -caution not to exceed 10mg total daily Divalproex PO 125mg PRN for agitation, Second agent - Continue 1:1 supervision - Thiamine level pending. If low, administer thiamine 500units TID IV for two days - Ordered PT/OT eval for resuming activity 2/2 reduction in agitation - Palliative care consult requested per family request to discuss goals of care/hospice care #Hypomagnesemia - 2g magnesium administered 09/28 - Labs from 09/29 found mag levels at 1.7- Resolved #Abnormal urinalysis - Urine culture from 09/28 positive for E. coli. - Continue IV 2g ceftriaxone q24h, last dose on 10/03 #CKD - Creatinine stabilizing (1.98 on 10/01, 1.99 on 10/02) - Petit removed 09/30 - If urinary retention, can replace petit - Bladder scan PRN - Continue monitor CBC and CMP with AM labs #T2DM - BSG fairly well controlled <200 over the last 24 hours. - Continue BSG ACHS - Continue Glargine at 10 units BID - Continue sliding scale insulin starting 09/27 CF 25mg/dL/unit CR 15g/unit - Hold glipizide, dulaglutide, and metformin Chronic conditions: Continue lisinopril po 5 mg Continue finasteride po 5 mg Continue atorvastatin 40mg po Diet: DM2, carb control diet, Easy to chew diet DVT prophylaxis: SCDs Code: DNR/DNI discussed with case management, palliative care Admission and Anticipated Discharge Date Admission Date: September 26, 2024 Subjective Patient follows commands but is confused. Physical Exam Physical Exam: General: Pt was awake and following commands. Pt was only oriented to self. Pt was able to answer questions and converse. HEENT: Eyes are clear, he is hard of hearing, trachea is midline, no lymphadenopathy, MMM Heart: Irregular rate and rhythm, no rubs, murmurs, or gallops. No JVD Lungs: Respirations were non-labored without crackles, wheezes, rhonchi. Abd: Non distended, soft, normoactive bowel sounds appreciated. Peripheries: No peripheral edema. No psychomotor agitation, mild tremor of the RUE. Results & Data Results & Data Vital Signs (Past 12 Hours) Vital Signs Temp Pulse Pulse Resp BP Pulse Ox O2 Del Method 10/03/24 20:50 Room Air 10/03/24 17:43 113 H 10/03/24 15:19 36.4 C L 97 H 18 137/72 91 Room Air PG Care Time/CCT Total # of Minutes Spent Total Time Spent with Patient: Total time spent is greater than 50% in coordination of care (as documented) at patient's floor/unit and/or counseling patient: Coding Level of Care Code 70194 SUB INP/OBS CARE 3/50MIN Diagnoses Paroxysmal atrial fibrillation I48.0 Atrial fibrillation type: paroxysmal Increased oxygen demand R68.89 Heart failure I50.9 Delirium R41.0 Metabolic encephalopathy G93.41 Hypomagnesemia E83.42 Abnormal finding on urinalysis R82.90 CKD stage 3b, 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
--- NOTE | 2024-10-04 08:37 | Palliative Care Progress Note ---
Date of Service October 04, 2024 Assessment & Plan (1) Palliative care by specialist: Plan: Palliative care will continue to follow for ongoing EOL pt care and family support. (2) Comfort measures only status: Plan: Pt transitioned to MEDICAL EDUCATOR on 10/03/24, plan for return to SNF when safe without sitter. Spoke with pt's son/DARVIN Watson by phone today, updates given. Walter had no specific questions today but expressed relief that pt may stay in hospital longer and gratitude for the care being given. (3) Need for comfort care: Plan: EOL Symptom manamgement: Continue olanzapine, diuretics and antiarrhythmics per previous dosing. Pain/dyspnea/tachypnea morphine 2mg IVP PRN [id number] Consider titratable morphine drip if pt requires >3 PRN doses in under two consecutive hours. Nausea/vomitting zofran 4mg IVP q4h PRN Agitation ativan 0.5mg IVP q4h PRN Hyperactive delirium haldol 5mg IVP q6h PRN Secretions - if repositioning not effective robinul 0.4mg IV q4h PRN atropine SL 3 drops Q1h PRN Nursing care: Discontinue all medications not directed towards comfort. Detether pt from IV tubing, monitor cables, and check vitals once per shift. Please continue HFNC and titrate down as able for patient comfort. Use medications above PRN for dyspnea/tachypnea and do not increase oxygen once titrated down. Assess q1h for pain/dyspnea and treat accordingly. Admission and Anticipated Discharge Date Admission Date: September 26, 2024 Subjective Assessed pt at bedside, he was transitioned to MEDICAL EDUCATOR on 10/03/24. Pt is unresponsive to verbal and gentle tactile stimuli, did not attempt to awaken in concert with comfort directed care. He had recently received ativan and appears comfortable, NAD with normal respiratory effort on NC. No visitors at bedside. Review of Systems Review of Systems: Unobtainable due to cognitive status Physical Exam Constitutional: + ill appearing, + altered mental status and + lethargic Eyes: PERRL, conjunctivae normal, anicteric sclerae ENMT: external ear and nose normal, oropharynx normal Neck: trachea midline, no thyromegaly Respiratory: normal respiratory effort, lungs clear to auscultation Gastrointestinal (Abdomen): normal bowel sounds, soft, nontender, no hepatosplenomegaly Musculoskeletal: MACE with strength and purpose, uncooperative Skin: no rashes, warm and dry Results & Data Vital Signs (Past 12 Hours) Vital Signs O2 Del Method 10/03/24 20:50 Room Air Laboratory Results No further labs or diagnostics in concert with comfort directed care. Diagnostic Findings No further labs or diagnostics in concert with comfort directed care. Medications Administered Current Inpatient Medications Acetaminophen (Acetaminophen 325 Mg Tab) 650 mg PO Q4H PRN PRN Reason: Pain or Fever Stop: 10/26/24 14:35 Last Admin: 09/29/24 05:12 Dose: 650 mg Artificial Tears (Artificial Tears) 1 drops OP DAILY AUDRA Stop: 10/29/24 08:59 Last Admin: 10/04/24 10:23 Dose: Not Given Atropine Sulfate (Atropine Sulfate 1% Op Soln 5 Ml Btl) 4 drops SL Q1H PRN PRN Reason: Secretions or pulm congestion Stop: 11/02/24 13:44 Digoxin (Digoxin 0.125 Mg Tab) 0.125 mg PO Q24H AUDRA Stop: 10/29/24 15:59 Last Admin: 10/04/24 15:25 Dose: Not Given Divalproex Sodium (Divalproex Sodium Sprinkle/Del-Rel 125 Mg Cap) 125 mg PO Q8H PRN PRN Reason: Agitation- USE SECOND Stop: 10/31/24 11:01 Dorzolamide/Timolol (Dorzolamide/Timolol 22.3/6.8mg/Ml 10 Ml Btl) 1 drops OPB BID AUDRA Stop: 10/26/24 20:59 Last Admin: 10/04/24 19:48 Dose: 1 drops Finasteride (Finasteride 5 Mg Tab) 5 mg PO DAILY AUDRA Stop: 10/27/24 08:59 Last Admin: 10/04/24 10:24 Dose: Not Given Furosemide (Furosemide 40 Mg Tab) 40 mg PO QAM AUDRA Stop: 10/29/24 10:59 Last Admin: 10/04/24 10:24 Dose: Not Given Glycopyrrolate (Glycopyrrolate 0.2 Mg/Ml Vial) 0.4 mg IV Q4H PRN PRN Reason: Rattling Secretions or Pulm Congestion Stop: 11/02/24 13:44 Haloperidol (Haloperidol Oral Soln 2 Mg/Ml) 2 mg PO Q4H PRN PRN Reason: Anxiety/Agitation,delirium Stop: 11/02/24 13:44 Lorazepam (Lorazepam 2 Mg/1 Ml Vial) 1.5 mg IV Q4H PRN PRN Reason: Anxiety/Agitation,restless Stop: 11/02/24 13:44 Metoprolol Succinate (Metoprolol Succ 50mg Ext Rel Tab) 100 mg PO QAM AUDRA Stop: 11/02/24 08:59 Last Admin: 10/04/24 10:24 Dose: Not Given Miconazole Nitrate (Miconazole Nitrate Powder 85 Gm) 1 appln EXT BID AUDRA Stop: 10/08/24 20:59 Last Admin: 10/04/24 19:52 Dose: 1 appln Morphine Sulfate (Morphine Sulfate 2 Mg/Ml Carp) 3 mg IV Q15M PRN PRN Reason: Pain,dyspnea Stop: 10/18/24 13:02 Olanzapine (Olanzapine 10 Mg/2.1 Ml Sdv) 5 mg IM Q6H PRN PRN Reason: Agitation-USE FIRST Stop: 10/30/24 17:49 Olanzapine (Olanzapine 5 Mg Tablet) 5 mg PO QAM [facility] Stop: 11/03/24 19:14 Last Admin: 10/04/24 19:51 Dose: 5 mg Olanzapine (Olanzapine Zydis 5 Mg Orally Dis. Tab) 7.5 mg PO HS [facility] Stop: 11/03/24 20:59 Last Admin: 10/04/24 19:51 Dose: 7.5 mg Spironolactone (Spironolactone 25 Mg Tab) 25 mg PO DAILY [facility] Stop: 10/29/24 11:29 Last Admin: 10/04/24 10:24 Dose: Not Given Tamsulosin HCl (Tamsulosin Hcl 0.4 Mg Cap) 0.4 mg PO DAILY AUDRA Stop: 10/29/24 08:59 Last Admin: 10/04/24 10:25 Dose: Not Given PG Care Time/CCT Total # of Minutes Spent Total Time Spent with Patient: Total time spent is greater than 50% in coordination of care (as documented) at patient's floor/unit and/or counseling patient: [place] [address] SUB INP/OBS CARE 2/35MIN Patient Type Established History Problem Focused Exam Problem Focused Medical Decision Making Low Complexity Diagnoses Palliative care by specialist Z51.5 Comfort measures only status Z51.5 Need for comfort care
[2024-10-04] MEDS: MoRPHine SULFATE 10 MG/0.5 ML UDP PO PRN (11:35)
[2024-10-04] MEDS: MoRPHine SULFATE 2 MG/ML CARP IV PRN ×2 (13:23→23:35)
[2024-10-04] MEDS: HALOPERIDOL ORAL SOLN 2 MG/ML PO PRN (15:39)
[2024-10-04] MEDS ORDERED: HALOPERIDOL ORAL SOLN 2 MG/ML PO PRN ×2 (17:01→19:09)
--- NOTE | 2024-10-04 17:03 | Communication Note ---
Date of Service: October 04, 2024 Palliative Med Quality Control Projectionist pt with inc agitation, more restless, no relief with ativan 0.5mg IV Will increase to ativan 1mg IV q4h prn please use opioids as well to relieve discomfort, if significant agitation/motor restlessness, may need to use IM Zyprexa prn dose and repeat ativan. TS 8min no charge submitted. Thank you for allowing us to participate in the ongoing care of this patient. Please page with any additional concerns. Mark Harden DNP Director, Palliative Medicine
[2024-10-04] MEDS: LORazepam 2 MG/1 ML VIAL IV PRN ×2 (17:24→23:36)
[2024-10-04] MEDS ORDERED: OLANZapine 10 MG/2.1 ML SDV IM PRN (19:09)
--- NOTE | 2024-10-04 19:15 | Communication Note ---
Date of Service: October 04, 2024 Palliative Med Pharmacy Retail Support Specialist Walter remains restless and agitated, but not as physically restless as earlier this evening - not throwing his legs over bed railings as much but still pulling linens, tossing/turning/fidgeting in bed. Will give Ativan 2mg IV x1 now Will increase to Ativan 1.5mg IV q4h prn Will increase MS to 4mg IV q15min prn pain/air hunger Use Haldol as ordered, please Zyprexa dosing increase however it is noted he is taking less PO and we may only be able to use the IM option. Walter may be heading to terminal delirium - Terminal delirium is an acute, fluctuating disturbance in consciousness and cognition that occurs in patients near the end of life, typically in the setting of advanced illness. It is characterized by confusion, agitation, disorientation, hallucinations, and impaired attention. This condition is often multifactorial, with contributing factors including metabolic imbalances, infections, medications, organ failure, and reduced cerebral perfusion. Management focuses on addressing underlying causes, providing supportive care, and ensuring comfort, as delirium is generally a poor prognostic sign. Palliative medicine treatment interventions for terminal delirium focus on symptom management and comfort, with an emphasis on reducing distress and improving quality of life. Common interventions include: 1. Pharmacologic interventions: - Antipsychotics: Haloperidol, quetiapine, or olanzapine are often used to manage agitation and hallucinations. - Benzodiazepines: Lorazepam or midazolam may be used, particularly in cases where anxiety or agitation is prominent, though they should be used cautiously due to potential respiratory depression. - Anticholinergic agents: Scopolamine or hyoscyamine may be considered if delirium is associated with excessive secretions or if there is a suspected underlying cause of anticholinergic toxicity. 2. Environmental modifications: - Calm, familiar surroundings: Providing a quiet, well-lit, and familiar environment can help reduce confusion. - Orientation aids: Clocks, calendars, and frequent reorientation to time and place may help alleviate disorientation. 3. Non-pharmacologic interventions: - Reassurance and communication: Frequent reassurance and clear, simple communication can help reduce anxiety and agitation. - Pain management: Optimizing pain control with opioids or other analgesics to prevent discomfort-induced delirium. - Hydration and nutrition: Ensuring appropriate hydration and nutrition within the patient's comfort level. 4. Treatment of underlying causes: - If reversible causes of delirium (e.g., infections, metabolic imbalances) are identified, addressing them with appropriate treatments (antibiotics, correction of electrolytes) can improve symptoms. However, in terminal settings, aggressive treatment may be withheld in favor of comfort care. Interventions aim to manage the symptoms, relieve distress, and ensure a peaceful , with the recognition that delirium in terminal illness is often irreversible. TS 23min Thank you for allowing us to participate in the ongoing care of this patient. Please page with any additional concerns. Mark Harden DNP Director, Palliative Medicine
[2024-10-04] MEDS: LORazepam 2 MG/1 ML VIAL IV STA (19:47)
[2024-10-04] MEDS: OLANZapine ZYDIS 5 MG ORALLY DIS. TAB PO SCH (19:51)
[2024-10-04] MEDS: OLANZapine 5 MG TABLET PO SCH (19:51)
--- NOTE | 2024-10-04 23:12 | Hospitalist Progress Note ---
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 Pt remains confused and agitated, but improved as he is no longer combative and redirectable. Per tele, Pt remains in A-fib with HR in the 80s-120s. PE remarkable for irregular heart rate and rhythm and disorientation to place and time. Soft restraints, petit cath and supplemental O2 were removed 09/30 and have not been reinstated. PLAN #AFIB - AFIB with elevated HR remains per tele. HR has been gradually reducing over the last two days. While resting HR is 89-105, when agitated HR is 110-130. - Continue to PO metoprolol tartrate 50mg BID, switch to Metoprolol succinate 100mg qam on 10/03 - IV metoprolol 5mg PRN for HR >120 - Continue home dose of Digoxin 125mcg PO - Continue Telemetry in PCU for AFIB - EKG with chest pain PRN - Hold anticoagulation until 10/03 given recent CVA in accordance with [facility] Neuro recs. [id number] Score = 7, HAS-BLED Score = 6. 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 transfer to medical. Patient will remain on comfort measures. 1:1 was removed on 10/08. discussed with case management. #HFrEF - Continue Lasix to 40mg PO - Continue PO spironolactone 25mg - Currently on RA with nomral O2 sat, supplemental O2 PRN for sats<90% #Metabolic Encephalopathy / Delirium - Psych eval completed 09/30, recommendations appreciated and as follows Continue Zyprexa PO 2.5mg qam and 5mg qhs and plan to transition to 5mg qhs only Ammonia level is <10 Zyprexa IM 2.5mg PRN for increased agitation- First agent (can increase to IM 5mg if needed -caution not to exceed 10mg total daily Divalproex PO 125mg PRN for agitation, Second agent - Thiamine level pending. If low, administer thiamine 500units TID IV for two days - Ordered PT/OT eval for resuming activity 2/2 reduction in agitation - Palliative care consult requested per family request to discuss goals of care/hospice care #Hypomagnesemia - 2g magnesium administered 09/28 - Labs from 09/29 found mag levels at 1.7- Resolved #Abnormal urinalysis - Urine culture from 09/28 positive for E. coli. - Continue IV 2g ceftriaxone q24h, last dose on 10/03 #CKD - Creatinine stabilizing (1.98 on 10/01, 1.99 on 10/02) - Petit removed 09/30 - If urinary retention, can replace petit - Bladder scan PRN - Continue monitor CBC and CMP with AM labs #T2DM - BSG fairly well controlled <200 over the last 24 hours. - Continue BSG ACHS - Continue Glargine at 10 units BID - Continue sliding scale insulin starting 09/27 CF 25mg/dL/unit CR 15g/unit - Hold glipizide, dulaglutide, and metformin Chronic conditions: Continue lisinopril po 5 mg Continue finasteride po 5 mg Continue atorvastatin 40mg po Diet: DM2, carb control diet, Easy to chew diet DVT prophylaxis: SCDs Code: DNR/DNI discussed with case management, palliative care Admission and Anticipated Discharge Date Admission Date: September 26, 2024 Subjective Patient is on comfort measures. Physical Exam 2 Physical Exam: General: Pt was awake and following commands. Pt was only oriented to self. Pt was able to answer questions and converse. HEENT: Eyes are clear, he is hard of hearing, trachea is midline, no lymphadenopathy, MMM Heart: Irregular rate and rhythm, no rubs, murmurs, or gallops. No JVD Lungs: Respirations were non-labored without crackles, wheezes, rhonchi. Abd: Non distended, soft, normoactive bowel sounds appreciated. Peripheries: No peripheral edema. No psychomotor agitation, mild tremor of the RUE. Results & Data Results & Data Vital Signs (Past 12 Hours) Vital Signs O2 Del Method 10/04/24 19:47 Room Air PG Care Time/CCT Total # of Minutes Spent Total Time Spent with Patient: Total time spent is greater than 50% in coordination of care (as documented) at patient's floor/unit and/or counseling patient: Coding Level of Care Code 44727 SUB INP/OBS CARE 3/50MIN Diagnoses Paroxysmal atrial fibrillation I48.0 Atrial fibrillation type: paroxysmal Increased oxygen demand R68.89 Heart failure I50.9 Delirium R41.0 Metabolic encephalopathy G93.41 Hypomagnesemia E83.42 Abnormal finding on urinalysis R82.90 CKD stage 3b, 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
--- NOTE | 2024-10-05 09:36 | Palliative Care Progress Note ---
Date of Service October 05, 2024 Assessment & Plan (1) Palliative care by specialist: Plan: Palliative care will continue to follow for ongoing EOL pt care and family support. 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 Spoke with pt's son/DARVIN Watson by phone today, updates given. Helped Walter understand that pt is showing signs of transition to active dying process and encouraged family visitation. (3) Need for comfort care: Plan: EOL Symptom manamgement: Continue olanzapine, diuretics and antiarrhythmics per previous dosing. Pain/dyspnea/tachypnea morphine 3mg IVP PRN [id number] Consider titratable morphine drip if pt requires >3 PRN doses in under two consecutive hours. Nausea/vomitting zofran 4mg IVP q4h PRN Agitation ativan 1mg IVP q4h PRN Hyperactive delirium haldol 5mg IVP q6h PRN Secretions - if repositioning not effective robinul 0.4mg IV q4h PRN atropine SL 3 drops Q1h PRN Nursing care: Discontinue all medications not directed towards comfort. Detether pt from IV tubing, monitor cables, and check vitals once per shift. Please continue HFNC and titrate down as able for patient comfort. Use medications above PRN for dyspnea/tachypnea and do not increase oxygen once titrated down. Assess q1h for pain/dyspnea and treat accordingly. Plan As above. Palliative care will continue to follow for ongoing EOL pt care and family support. Admission and Anticipated Discharge Date Admission Date: September 26, 2024 Subjective Assessed pt at bedside, he was transitioned to SECTION MAINTAINER on 10/03/2024. Pt is unresponsive to verbal and gentle tactile stimuli, did not attempt to awaken in concert with comfort directed care. He appears comfortable, pale skin, extremities cool. Respiratory effort decreased, rate 8-12/min with regular 30- 40 second periods of apnea. No visitors at bedside. Review of Systems Review of Systems: Unobtainable due to cognitive status Physical Exam Constitutional: + ill appearing and + altered mental sta tus pt unresponsive to verbal and gentle tactile stimuli did not attempt to waken in concert with comfort directed care. Eyes: PERRL, conjunctivae normal, anicteric sclerae ENMT: external ear and nose normal, oropharynx normal Neck: trachea midline, no thyromegaly Respiratory: + abnormal respiratory pattern pt with alternating periods of approx. 20 sec tachypnea and 40 sec of apnea. lung sounds coarse bilaterally. Gastrointestinal (Abdomen): normal bowel sounds, soft, nontender, no hepatosplenomegaly Musculoskeletal: MACE Skin: no rashes, warm and dry + pallor Results & Data Vital Signs (Past 12 Hours) Vital Signs Temp 36.4 C L 10/03/24 15:19 Pulse 113 H 10/03/24 17:43 Resp 18 10/03/24 15:19 BP 137/72 10/03/24 15:19 Pulse Ox 91 10/03/24 15:19 O2 Del Method Room Air 10/04/24 19:47 O2 Flow Rate 2 09/30/24 07:08 Intake & Output 10/04/24 10/05/24 10/05/24 18:59 06:59 18:59 Output Total 425 / 775 350 / 775 Balance -425 / -775 -350 / -775 Output: Urine Amount (Catheter) 425 / 775 350 / 775 Pimentel/Indwelling 425 / 775 350 / 775 Laboratory Results No further labs or diagnostics in concert with comfort directed care. Diagnostic Findings No further labs or diagnostics in concert with comfort directed care. Medications Administered Current Inpatient Medications Acetaminophen (Acetaminophen 325 Mg Tab) 650 mg PO Q4H PRN PRN Reason: Pain or Fever Stop: 10/26/24 14:35 Last Admin: 09/29/24 05:12 Dose: 650 mg Artificial Tears (Artificial Tears) 1 drops OP DAILY AUDRA Stop: 10/29/24 08:59 Last Admin: 10/04/24 10:23 Dose: Not Given Atropine Sulfate (Atropine Sulfate 1% Op Soln 5 Ml Btl) 4 drops SL Q1H PRN PRN Reason: Secretions or pulm congestion Stop: 11/02/24 13:44 Digoxin (Digoxin 0.125 Mg Tab) 0.125 mg PO Q24H AUDRA Stop: 10/29/24 15:59 Last Admin: 10/04/24 15:25 Dose: Not Given Divalproex Sodium (Divalproex Sodium Sprinkle/Del-Rel 125 Mg Cap) 125 mg PO Q8H PRN PRN Reason: Agitation- USE SECOND Stop: 10/31/24 11:01 Dorzolamide/Timolol (Dorzolamide/Timolol 22.3/6.8mg/Ml 10 Ml Btl) 1 drops OPB BID [facility] Stop: 10/26/24 20:59 Last Admin: 10/04/24 19:48 Dose: 1 drops Finasteride (Finasteride 5 Mg Tab) 5 mg PO DAILY [facility] Stop: 10/27/24 08:59 Last Admin: 10/04/24 10:24 Dose: Not Given Furosemide (Furosemide 40 Mg Tab) 40 mg PO QAM [facility] Stop: 10/29/24 10:59 Last Admin: 10/04/24 10:24 Dose: Not Given Glycopyrrolate (Glycopyrrolate 0.2 Mg/Ml Vial) 0.4 mg IV Q4H PRN PRN Reason: Rattling Secretions or Pulm Congestion Stop: 11/02/24 13:44 Haloperidol (Haloperidol Oral Soln 2 Mg/Ml) 2 mg PO Q4H PRN PRN Reason: Anxiety/Agitation,delirium Stop: 11/02/24 13:44 Lorazepam (Lorazepam 2 Mg/1 Ml Vial) 1 mg IV Q4H PRN PRN Reason: Anxiety/Agitation,restless Stop: 11/02/24 13:44 Metoprolol Succinate (Metoprolol Succ 50mg Ext Rel Tab) [facility] Stop: 11/02/24 08:59 Last Admin: 10/04/24 10:24 Dose: Not Given Miconazole Nitrate (Miconazole Nitrate Powder 85 Gm) 1 appln EXT BID [facility] Stop: 10/08/24 20:59 Last Admin: 10/04/24 19:52 Dose: 1 appln Morphine Sulfate (Morphine Sulfate 2 Mg/Ml Carp) 3 mg IV Q15M PRN PRN Reason: Pain,dyspnea Stop: 10/18/24 13:02 Last Admin: 10/05/24 04:13 Dose: 3 mg Olanzapine (Olanzapine 10 Mg/2.1 Ml Sdv) 5 mg IM Q6H PRN PRN Reason: Agitation-USE FIRST Stop: 10/30/24 17:49 Olanzapine (Olanzapine 5 Mg Tablet) 5 mg PO QAM [facility] Stop: 11/03/24 19:14 Last Admin: 10/04/24 19:51 Dose: 5 mg Olanzapine (Olanzapine Zydis 5 Mg Orally Dis. Tab) 7.5 mg PO HS [facility] Stop: 11/03/24 20:59 Last Admin: 10/04/24 19:51 Dose: 7.5 mg Spironolactone (Spironolactone 25 Mg Tab) 25 mg PO DAILY AUDRA Stop: 10/29/24 11:29 Last Admin: 10/04/24 10:24 Dose: Not Given Tamsulosin HCl (Tamsulosin Hcl 0.4 Mg Cap) 0.4 mg PO DAILY AUDRA Stop: 10/29/24 08:59 Last Admin: 10/04/24 10:25 Dose: Not Given . PG Care Time/CCT Total # of Minutes Spent Total Time Spent with Patient: Total time spent is greater than 50% in coordination of care (as documented) at patient's floor/unit and/or counseling patient: Coding [place] [address] SUB INP/OBS CARE 2/35MIN Patient Type Established History Problem Focused Exam Problem Focused Medical Decision Making Moderate Complexity Diagnoses Palliative care by specialist Z51.5 Comfort measures only status Z51.5 Need for comfort care
[2024-10-05] MEDS: LORazepam 2 MG/1 ML VIAL IV PRN (10:27)
--- NOTE | 2024-10-05 14:23 | Discharge Summary ---
Discharge Summary Date of Service October 05, 2024 Principal Dx & Hospital Course #1 = Principal Diagnosis (1) Cognitive impairment: (2) Palliative care by specialist: (3) Advanced care planning/counseling discussion: . Plan #AFIB - AFIB with elevated HR remains per tele. HR has been gradually reducing over the last two days. While resting HR is 89-105, when agitated HR is 110-130. - Continue to PO metoprolol tartrate 50mg BID, switch to Metoprolol succinate 100mg qam on 10/03 - IV metoprolol 5mg PRN for HR >120 - Continue home dose of Digoxin 125mcg PO - Continue Telemetry in PCU for AFIB - EKG with chest pain PRN - Hold anticoagulation until 10/03 given recent CVA in accordance with [facility] Neuro recs. [id number] Score = 7, HAS-BLED Score = 6. On 10/03, patient transitioned to VP DATA. transfer to medical. Patient will remain on comfort measures. 1:1 was removed on 10/08. discussed with case management. patient to be discharged/readmitted under hospice. will only continue comfort meds #HFrEF - Continue Lasix to 40mg PO - Continue PO spironolactone 25mg - Currently on RA with nomral O2 sat, supplemental O2 PRN for sats<90% #Metabolic Encephalopathy / Delirium - Psych eval completed 09/30, recommendations appreciated and as follows Continue Zyprexa PO 2.5mg qam and 5mg qhs and plan to transition to 5mg qhs only Ammonia level is <10 Zyprexa IM 2.5mg PRN for increased agitation- First agent (can increase to IM 5mg if needed -caution not to exceed 10mg total daily Divalproex PO 125mg PRN for agitation, Second agent - Thiamine level pending. If low, administer thiamine 500units TID IV for two days - Ordered PT/OT eval for resuming activity 2/2 reduction in agitation - Palliative care consult requested per family request to discuss goals of care/hospice care #Hypomagnesemia - 2g magnesium administered 09/28 - Labs from 09/29 found mag levels at 1.7- Resolved #Abnormal urinalysis - Urine culture from 09/28 positive for E. coli. - Continue IV 2g ceftriaxone q24h, last dose on 3/10 #CKD - Creatinine stabilizing (1.98 on 10/01, 1.99 on 10/02) - Petit removed 09/30 - If urinary retention, can replace petit - Bladder scan PRN - Continue monitor CBC and CMP with AM labs #T2DM - BSG fairly well controlled <200 over the last 24 hours. - Continue BSG ACHS - Continue Glargine at 10 units BID - Continue sliding scale insulin starting 09/27 CF 25mg/dL/unit CR 15g/unit - Hold glipizide, dulaglutide, and metformin Chronic conditions: Continue lisinopril po 5 mg Continue finasteride po 5 mg Continue atorvastatin 40mg po Diet: DM2, carb control diet, Easy to chew diet DVT prophylaxis: SCDs Code: DNR/DNI discussed with case management, palliative care Admission HPI Per Admitting Provider The patient is a 89-year-old gentleman who presents emergency department with a chief complaint of worsening kidney function on outpatient lab work. Patient has a history of a recent hemorrhagic CVA, his son is at the bedside and serves further history. He tells me that the patient has been at [facility] since this past , while there is had issues with delirium as well as an up trending creatinine. Today they recommended he come to the ER to be assessed given his uptrending creatinine and other issues. On arrival here to the ED the patient is able to follow commands appropriately, he is otherwise a limited historian and his son does help with history. Pt was seen by the hospitalist team around 1:30pm on 09/26/24. Pt was alone in his room and his son did not come back while he was interviewed. When first asked, the patient stated that he was at the [employer]. When asked again, he reported being in [place]. He reported that it was February 1961 and that he was born on April 26, 1961. When asked why he believed he was in the hospital, the patient said it was because of "all the blood tests", but was unable to elaborate further. Further details about his previous medical conditions (including recent CVA), post stroke health, or current symptoms could not be obtained with certainty. Discharge Exam General: Pt was awake and following commands. Pt was only oriented to self. Pt was able to answer questions and converse. HEENT: Eyes are clear, he is hard of hearing, trachea is midline, no lymphadenopathy, MMM Heart: Irregular rate and rhythm, no rubs, murmurs, or gallops. No JVD Lungs: Respirations were non-labored without crackles, wheezes, rhonchi. Abd: Non distended, soft, normoactive bowel sounds appreciated. Peripheries: No peripheral edema. No psychomotor agitation, mild tremor of the RUE. Discharge Plan Discharge Items Patient Disposition: Hospice - Medical Facility Reason For Visit: AMS, EFFIE Discharge Diagnosis: EFFIE Activity: Resume your previous activity Non-emergency contact: Primary Care Provider Call non-emergency contact if: you have any medication questions Follow-up/Referrals: ProJeremy MD [Primary Care Provider] - Diet: Carb Consistent or DM2 Addtl Attending Provider Instructions: Discharged on hospice for GIP Pending Studies at Discharge: No Stand-Alone Forms: [facility] Skilled Items Patient informed of condition?: No DNR: Yes Discharge Level of Care: Other Communicable Disease: No Discharge Prognosis: Stable Lines: None Urinary Catheter: No Medications and DC Order Prescriptions: New glycopyrrolate 0.2 mg/mL Solution 0.4 mg IV Q4H PRN (Reason: secretions) Qty: 5 0RF metoprolol succinate 50 mg Tablet Extended Release 24 Hr 100 mg PO QAM Qty: 30 0RF lorazepam 2 mg/mL Solution 1 mg IV Q4H PRNQty: 5 0RF olanzapine 5 mg Tablet 5 mg PO QAM Qty: 6 0RF divalproex 125 mg Capsule, Delayed Rel Sprinkle 125 mg PO Q8H PRNQty: 5 0RF olanzapine 5 mg Tablet,Disintegrating 7.5 mg PO HS Qty: 5 0RF olanzapine 10 mg Recon Soln 5 mg IM Q6H PRNQty: 0 0RF morphine 2 mg/mL Syringe 3 mg IV Q15M PRNQty: 5 0RF Continued (DME) blood sugar diagnostic Strip See Rx Instructions .ROUTE .MEDSUPPLY Qty: 100 5RF Rx Instructions: Accu Chek Guide test strips- check BS once daily (DME) lancets [Accu-Chek Fastclix Lancet Drum] Misc See Rx Instructions .Route Qty: 100 5RF Rx Instructions: Check BS once daily pantoprazole [Protonix] 40 mg tablet,delayed release (DR/EC) 40 mg PO DAILY Qty: 90 3RF metformin 500 mg tablet extended release 24 hr 1,000 mg PO BID Qty: 360 3RF Trulicity 4.5 mg/0.5 mL pen injector 4.5 mg subcut .weekly Qty: 2 5RF finasteride [Proscar] 5 mg tablet 5 mg PO DAILY Qty: 90 3RF cholecalciferol (vitamin D3) 50 mcg (2,000 unit) capsule 50 mcg PO DAILY Qty: 90 1RF dorzolamide-timolol 22.3-6.8 mg/mL drops 1 drp OPB BID melatonin 5 mg capsule 5 mg PO DAILY metoprolol succinate 100 mg capsule 100 mg PO DAILY digoxin 125 mcg (0.125 mg) Tablet 125 mcg PO DAILY furosemide [Lasix] 40 mg Tablet 40 mg PO DAILY divalproex 125 mg capsule 125 mg PO Q8H PRN (Reason: Agitation) polyvinyl alcohol-povidon(PF) 1 drop drops 1 drp ophthalmic (eye) DAILY Rx Instructions: 1 drop both eyes qHS trazodone 50 mg Tablet See Rx Instructions .ROUTE .COMPLEX Rx Instructions: 0.25 tablets by mouth in the morning and 0.25 tablets at noon trazodone 50 mg Tablet 25 mg PO HS quetiapine 100 mg Tablet 100 mg PO HS sodium bicarbonate 650 mg Tablet 650 mg PO BID senna 1 cap tablet 1 caplet PO DAILY spironolactone 25 mg tablet 25 mg PO DAILY tamsulosin 0.4 mg capsule 0.4 mg PO DAILY cyclosporine 0.05 % drops 1 drp OPB BID Discontinued aspirin [Adult Low Dose Aspirin] 81 mg tablet,delayed release (DR/EC) 81 mg PO DAILY Qty: 90 3RF lisinopril 5 mg tablet 5 mg PO DAILY Qty: 90 3RF ferrous sulfate 325 mg (65 mg iron) tablet 325 mg PO Q2D Qty: 90 3RF acetaminophen [Tylenol] 325 mg tablet 325 mg PO QID PRN (Reason: pain) Qty: 30 0RF atorvastatin 40 mg tablet 40 mg PO QPM Qty: 90 1RF Discharge Orders: Discharge Order (Routine); Ordered 10/05/24 Ordered By: Aurelio Tracy Admission Data Admit Date/Time: 09/26/24 14:37 Attending Provider: Aurelio Tracy Admit Provider: Darlin Whitman Primary Care Provider: Jeremy Ruby Other Providers: Ag Khan at [place]; Darlin Whitman Other Interventions: Discharge Summary Assessment (RN) Last Done: 10/05/24 14:45 Hospital Stay Data Consultations 09/26/24 13:07 ED Decision to Admit Stat 09/29/24 12:37 Consult Psychiatry Routine 10/02/24 13:17 Consult Palliative Care Routine Diagnostic Imagining Performed 09/26/24 11:38 CT head/brain wo con Stat 09/27/24 07:[address] [CT head/brain wo con] Stat Discharge Instructions Given to Patient (Per Discharging Provider) Discharged on hospice for GIP Total Time Total Time Spent Total Time Spent (In Minutes): 32 Coding Level of Care Code 19086 INP/OBS DISCH >30 MIN Diagnoses Cognitive impairment R41.89 Palliative care by specialist Z51.5 Advanced care planning/counseling discussion Z71.89
[2024-10-05 15:12] VITALS: BP 130/76; PULSE 112
== END 2024-10-05 15:49 | disposition hospice, inpatient (51) | DRG 682 ==
LOC: ED 10:56 → SUATTDRO 14:37 → 2S 14:37 → 3W 10-03 20:47
DX: K21.9 Gastro-esophageal reflux disease without esophagitis; Z86.74 Personal history of sudden cardiac arrest; N17.9 Acute kidney failure, unspecified; I13.0 Hypertensive heart and chronic kidney disease with heart failure and stage 1 through stage 4 chronic kidney disease, or unspecified chronic kidney disease; S80.212A Abrasion, left knee, initial encounter; Z51.5 Encounter for palliative care; X58.XXXA Exposure to other specified factors, initial encounter; G93.41 Metabolic encephalopathy; Z87.891 Personal history of nicotine dependence; Z66 Do not resuscitate; Z79.02 Long term (current) use of antithrombotics/antiplatelets; Z79.82 Long term (current) use of aspirin; F05 Delirium due to known physiological condition; N18.32 Chronic kidney disease, stage 3b; Z86.73 Personal history of transient ischemic attack (TIA), and cerebral infarction without residual deficits; I25.10 Atherosclerotic heart disease of native coronary artery without angina pectoris; E11.49 Type 2 diabetes mellitus with other diabetic neurological complication; B96.20 Unspecified Escherichia coli [E. coli] as the cause of diseases classified elsewhere; E11.22 Type 2 diabetes mellitus with diabetic chronic kidney disease; Z79.899 Other long term (current) drug therapy; I50.21 Acute systolic (congestive) heart failure; N39.0 Urinary tract infection, site not specified; I25.2 Old myocardial infarction; I48.91 Unspecified atrial fibrillation; E83.42 Hypomagnesemia; Z79.84 Long term (current) use of oral hypoglycemic drugs; Z79.85 Long-term (current) use of injectable non-insulin antidiabetic drugs

== ENCOUNTER 2024-10-05 15:53 | Inpatient (IN) ==
[2024-10-05] MEDS ORDERED: ONDANSETRON 4 MG OD TAB SL PRN (18:45)
[2024-10-05] MEDS ORDERED: ONDANSETRON INJ 2 MG/ML 2 ML VIAL IV PRN (18:47)
[2024-10-05] MEDS ORDERED: LORazepam 0.5 MG TAB PO PRN (18:47)
[2024-10-05] MEDS ORDERED: bisacodyL 10 MG SUPP PR PRN (18:49)
[2024-10-05] MEDS: MoRPHine SULFATE 10 MG/0.5 ML UDP PO PRN (19:36)
[2024-10-05] MEDS: LORazepam 2 MG/1 ML VIAL IV PRN (19:58)
[2024-10-05] MEDS: MoRPHine SULFATE 4 MG/ML 1 ML CARP\\VIAL IV PRN (22:04)
--- OUTSIDE RECORDS SUMMARY | 2024-10-06 03:06 | External Medical Summary | Summary of Care ---
Author Name Unknown Organization [facility] Address [address] [place] [address] Phone [phone] Care Team Providers Care Alarm Installation Technician Name Role Phone Pro, Jeremy Lanza MD Primary Care Provider [phone] Encounter Details Date Type Department Care Team (Late st Contact Info) Description 09/27/2024 Telephone [facility] [place] [address] [place] [address] Esther Matute PA-C [address] [place] [address] Allergies No known active allergiesdocumented as of this encounter (statuses as of 09/27/2024) Medications Dorzolamide HCl-Timolol Mal 2-0.5 % Ophthalmic [...] Active Dulaglutide 4.5 MG/0.5ML Subcutaneous Solution Auto-injector (OdinOtvet) Inject 4.5 mg under the skin every [...] as of this encounter (statuses as of 09/27/2024) Active Problems Problem Noted Date Diagnosed Date [...] as of this encounter (statuses as of 09/27/2024) Resolved Problems Problem Noted Date Diagnosed Date Resolved Date Atrial fibrillation with RVR 09/13/2024 09/22/2024 Acute respiratory failure with hypoxia 09/13/2024 09/22/2024 Pulmonary edema 09/12/2024 09/22/2024 Heart failure, systolic, wit h acute decompensation 09/12/2024 09/22/2024 Ac isch multi vasc territories stroke 09/06/2024 09/22/2024 Stroke-like symptoms 09/05/2024 025 documented as of this encounter (statuses as of 09/27/2024) Social History Tobacco Use Types Packs/Day Years [...] Ivett Sahu RN documented in this encounter Miscellaneous Notes * Telephone Encounter - Esther Matute PA-C - 09/27/2024 1:40 PM EST Son stopped into facility to provide update on father's inpatient care, interested in sooner neurology follow up and continued interest in geriatric psychiatry eval regarding recent delirium in setting of CVA. Reviewed with son that we will address these evaluations when he returns to the facility from the hospital. He is scheduled with neurosurgery 11/29/24 and neurology 01/04/25, at this time. Esther Matute PA-C documented in this encounter Plan of Treatment Upcoming Encounters Date Type Department Care Team (Late st Contact Info) Description 09/29/2024 9:30 AM EST Office Visit Cardiology, [facility] [address] [place] [address] Ksenia Arenas CRNP [address] [facility] [place] [address] 11/29/2024 3:00 PM EDT Office Visit [facility] [address] [place] [address] Haider Quinn MD [address] [place] [address] 01/04/2025 11:20 AM EDT Telemedicine Neurology [address] [place] [address] Sagar Ohara MD [address] [place] [address] [facility] [address] [place] [address] Health Maintenance Due Date Last Done Comments [...] Documents on File Type Date Recorded Patient Criminal 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 No Care Teams Alarm Installation Technician Relationship Specialty Start Date End Date Jeremy Ruby MD [address] [place] [address] PCP - General Internal Medicine 08/27/24 documented as of this encounter
[2024-10-06] MEDS: HYOSCYAMINE SULFATE 0.125 MG TAB SL PRN (04:58)
[2024-10-06] MEDS: MoRPHine SULFATE 4 MG/ML 1 ML CARP\\VIAL IV STA (05:57)
[2024-10-06] MEDS: LORazepam 2 MG/1 ML VIAL IV STA (06:58)
--- NOTE | 2024-10-06 07:16 | History & Physical Report ---
Date of Service October 05, 2024 Assessment & Plan (1) Comfort measures only status: Plan: transitioned to inpatient hospice. resumed comfort meds Admission and Anticipated Discharge Date Admission Date: October 05, 2024 History of Present Illness Primary Care Provider: Jeremy Ruby MD Allergies Allergy/AdvReac Type Severity Reaction Status Date / Time No Known Allergies Allergy Mild Unverified 08/11/24 12:50 Home Medications Medication Instructions Recorded Confirmed Type dorzolamide 22.3 mg-timolol 6.8 1 drp OPB BID 12/10/22 09/28/24 History mg/mL eye drops blood sugar diagnostic #100 ea 10/06/23 08/11/24 Rx lancets (Accu-Chek Fastclix Lancet #100 ea 10/06/23 08/11/24 Rx Drum) cyclosporine 0.05 % eye drops 1 drp OPB BID 11/04/23 09/28/24 History pantoprazole 40 mg tablet,delayed 40 mg PO DAILY #90 tabs 01/12/24 09/28/24 Rx release (Protonix) metformin 500 mg tablet,extended 1,000 mg (2 x 500 mg) PO BID #360 02/09/24 09/28/24 Rx release 24 hr tabs dulaglutide 4.5 mg/0.5 mL 4.5 mg (0.5 mL) subcut .weekly #2 05/18/24 09/28/24 Rx subcutaneous pen injector mL (Trulicity) finasteride 5 mg tablet (Proscar) 5 mg PO DAILY #90 tabs 05/18/24 09/28/24 Rx melatonin 5 mg capsule 5 mg PO DAILY 07/05/24 09/28/24 History cholecalciferol (vitamin D3) 50 50 mcg PO DAILY #90 caps 08/17/24 09/28/24 Rx mcg (2,000 unit) capsule digoxin 125 mcg (0.125 mg) tablet 125 mcg PO DAILY 09/28/24 09/28/24 History divalproex 125 mg PO Q8H PRN Agitation 09/28/24 09/28/24 History furosemide 40 mg tablet (Lasix) 40 mg PO DAILY 09/28/24 09/28/24 History metoprolol succinate 100 mg PO DAILY 09/28/24 09/28/24 History polyvinyl alcohol-povidon(PF) 1 drp ophthalmic (eye) DAILY 09/28/24 09/28/24 History quetiapine 100 mg tablet 100 mg PO HS 09/28/24 09/28/24 History senna 1 caplet PO DAILY 09/28/24 09/28/24 History sodium bicarbonate 650 mg tablet 650 mg PO BID 09/28/24 09/28/24 History spironolactone 25 mg PO DAILY 09/28/24 09/28/24 History tamsulosin 0.4 mg PO DAILY 09/28/24 09/28/24 History trazodone 50 mg tablet 25 mg PO HS 09/28/24 09/28/24 History trazodone 50 mg tablet See Rx Instructions .Route .COMPLEX 09/28/24 09/28/24 History divalproex 125 mg capsule,delayed 125 mg PO Q8H PRN #5 caps 10/05/24 Rx release sprinkle glycopyrrolate 0.2 mg/mL injection 0.4 mg (2 mL) IV Q4H PRN 10/05/24 Rx solution secretions #5 mL lorazepam 2 mg/mL injection 1 mg (0.5 mL) IV Q4H PRN #5 mL 10/05/24 Rx solution metoprolol succinate 50 mg 100 mg (2 x 50 mg) PO QAM #30 tabs 10/05/24 Rx tablet,extended release 24 hr morphine 2 mg/mL intravenous 3 mg (1.5 mL) IV Q15M PRN #5 mL 10/05/24 Rx syringe olanzapine 10 mg intramuscular 5 mg IM Q6H PRN #0 ea 10/05/24 Rx solution olanzapine 5 mg disintegrating 7.5 mg (1.5 x 5 mg) PO HS #5 tabs 10/05/24 Rx tablet olanzapine 5 mg tablet 5 mg PO QAM #6 tabs 10/05/24 Rx Past Med/Surg History Problem List (Updated 10/06/24 @ 00:07 by Johnna Rodriguez) Counseling regarding goals of care Need for comfort care (09/2024) Comfort measures only status Advanced care planning/counseling discussion Palliative care by specialist Cognitive impairment Abnormal finding on urinalysis (Acute) Heart failure (Acute) Increased oxygen demand (Acute) Delirium (Acute) Metabolic encephalopathy (Acute) Afib (Acute) Anemia COVID-19 (Acute) Elevated troponin (Acute) Hypomagnesemia (Acute) CKD stage 3b, 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 Sepsis Pulmonary edema Elevated troponin Hypomagnesemia COVID Fever (Acute) Generalized weakness (Acute) DM (diabetes mellitus), type 2 with neurological complications Coronary artery disease 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) 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) Mild cognitive impairment Chronic GERD BPH (benign prostatic hyperplasia) Glaucoma Current use of proton pump inhibitor SCCA (squamous cell carcinoma) of skin Cardiac arrest (1995) Myocardial infarction (1995) HTN (hypertension) Dyslipidemia Sensorineural hearing loss of both ears Vitamin D deficiency Cerumen impaction Family History Father Myocardial infarction Denies family history of Ovarian cancer Prostate cancer Breast cancer Colorectal cancer Social History Smoking Status: Former smoker Tobacco Type: Cigarettes Age Started Using Tobacco: 18; Age Quit Using Tobacco: 47; packs per day: 2; Second Hand Exposure: No; Do You Dip or Chew Tobacco: No; Tobacco Cessation Education Requested by Patient: No Hx Alcohol Use: No Hx Substance Use: No Preferred Language: Khmer Communication Ability: Impaired Visual Impairment: No Limitations Hearing Ability: Use of Hearing Aid Data Modeling Specialist Required: No Beliefs That Will Affect Care: None and Cultural marital status: Current Living Situation: Group Home current occupational status: retired Other Information That Helps Us Care for You: No Feels Safe at Home: Yes Safety Concerns: Feels Safe At This Time Seatbelt Use: always Sunscreen Use: Yes Assistive Devices: Walker and Wheelchair PG Care Time/CCT Total # of Minutes Spent Total Time Spent with Patient: Total time spent is greater than 50% in coordination of care (as documented) at patient's floor/unit and/or counseling patient: Coding Level of Care Code None Diagnoses Comfort measures only status Z51.5
--- NOTE | 2024-10-06 15:45 | Hospitalist Progress Note ---
Date of Service October 06, 2024 Assessment & Plan (1) Comfort measures only status: Plan: Supportive care. 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 Inpatient GIP status Admission and Anticipated Discharge Date Admission Date: October 05, 2024 Subjective Currently unresponsive. GIP status. Comfort measures only Review of Systems Review of Systems: The patient is unresponsive and cannot answer any questions regarding review of systems at this time Physical Exam Physical Exam: General-unresponsive, no fever HEENT-head atraumatic and normocephalic Neck-no lymphadenopathy or thyromegaly, trachea midline Chest-gurgling respirations. Bilateral rhonchi. No wheezing Cardiac-regular rate and rhythm, normal S1 and S2 Abdomen-hypoactive bowel sounds but present. Nondistended abdomen. Extremities-no appreciable peripheral edema Neuro- cannot assess. The patient is unresponsive Psych-cannot assess. The patient is unresponsive PG Care Time/CCT Total # of Minutes Spent Total Time Spent with Patient: Total time spent is greater than 50% in coordination of care (as documented) at patient's floor/unit and/or counseling patient: Coding Level of Care Code 96302 SUB INP/OBS CARE 2/35MIN Diagnoses Comfort measures only status Z51.5 Chronic systolic CHF (congestive heart failure) I50.22 Type 2 diabetes mellitus E11.9 Chronic kidney disease, stage III (moderate) N18.30 Coronary artery disease I25.10
--- NOTE | 2024-10-07 13:13 | Hospitalist Progress Note ---
Date of Service October 07, 2024 Assessment & Plan (1) Intracranial hemorrhage: Plan: Recent left temporal lobe intracranial hemorrhage. Supportive care (2) Comfort measures only status: Plan: Supportive care (3) Chronic systolic CHF (congestive heart failure): Plan: CLOUD PHYSICIST (4) Type 2 diabetes mellitus: Plan: CLOUD PHYSICIST (5) Chronic kidney disease, stage III (moderate): Plan: CLOUD PHYSICIST (6) Coronary artery disease: Plan: CLOUD PHYSICIST Plan Comfort measures only. Inpatient GIP status Admission and Anticipated Discharge Date Admission Date: October 05, 2024 Subjective The patient remains unresponsive. He recently suffered a left temporal lobe intracranial hemorrhage as seen on recent head CT scans Review of Systems Review of Systems: The patient is unresponsive and cannot answer any questions regarding review of systems at this time Physical Exam Physical Exam: General-unresponsive, no fever HEENT-head atraumatic and normocephalic Neck-no lymphadenopathy or thyromegaly, trachea midline Chest-gurgling respirations. Bilateral rhonchi. No wheezing Cardiac-regular rate and rhythm, normal S1 and S2 Abdomen-hypoactive bowel sounds but present. Nondistended abdomen. Extremities-no appreciable peripheral edema Neuro- cannot assess. The patient is unresponsive Psych-cannot assess. The patient is unresponsive PG Care Time/CCT Total # of Minutes Spent Total Time Spent with Patient: Total time spent is greater than 50% in coordination of care (as documented) at patient's floor/unit and/or counseling patient: Coding Level of Care Code 74826 SUB INP/OBS CARE 2/35MIN Diagnoses Intracranial hemorrhage I62.9 Comfort measures only status Z51.5 Chronic systolic CHF (congestive heart failure) I50.22 Type 2 diabetes mellitus E11.9 Chronic kidney disease, stage III (moderate) N18.30 Coronary artery disease I25.10
--- NOTE | 2024-10-08 16:11 | Hospitalist Progress Note ---
Date of Service October 08, 2024 Assessment & Plan (1) Comfort measures only status: Plan: cont comfort measures only pathway patient is inpatient hospice status as well appreciate hospice input adjust morphine from q6h to q4h prn (2) Hospice care patient: (3) Intracranial hemorrhage: Plan: 08/2024 - left temporal lobe intracranial hemorrhage hospitalized [place] [facility] [place] (4) Chronic systolic CHF (congestive heart failure): (5) Type 2 diabetes mellitus: (6) Chronic kidney disease, stage III (moderate): (7) Coronary artery disease: (8) Afib: Plan cont inpatient hospice status will update family later today Admission and Anticipated Discharge Date Admission Date: October 05, 2024 Subjective patient was obtunded during the visit visible apneas present Review of Systems Review of Systems: Unobtainable due to cognitive status and Unobtainable due to reduced consciousness Physical Exam Physical Exam: gen - periods of tachypnea interspersed with apnea, but otherwise comfortable mouth - MM dry heart - tachy, irregularly irregular lungs - rhonchi b/l bases, clear anterior chest; apneas abd - soft ND BS+ ext - remain warm, trace edema b/l feet Results & Data Results & Data Vital Signs (Past 12 Hours) Vital Signs O2 Del Method 10/08/24 07:00 Room Air PG Care Time/CCT Total # of Minutes Spent Total Time Spent with Patient: Total time spent is greater than 50% in coordination of care (as documented) at patient's floor/unit and/or counseling patient: Coding Level of Care Code 92771 SUB INP/OBS CARE 08/20MIN Diagnoses Comfort measures only status Z51.5 Hospice care patient Z51.5 Intracranial hemorrhage I62.9 Chronic systolic CHF (congestive heart failure) I50.22 Type 2 diabetes mellitus E11.9 Chronic kidney disease, stage III (moderate) N18.30 Coronary artery disease I25.10 Paroxysmal atrial fibrillation I48.0 Atrial fibrillation type: paroxysmal (8) Afib Atrial fibrillation type: paroxysmal Qualified Code(s): I48.0 - Paroxysmal atrial fibrillation
[2024-10-08] MEDS: MoRPHine SULFATE 4 MG/ML 1 ML CARP\\VIAL IV PRN (17:30)
--- NOTE | 2024-10-09 07:51 | Hospitalist Progress Note ---
Date of Service October 09, 2024 Assessment & Plan (1) Comfort measures only status: Plan: cont comfort measures only pathway patient is inpatient hospice status as well appreciate hospice input adjust morphine from q6h to q4h prn (2) Hospice care patient: (3) Intracranial hemorrhage: Plan: 08/2024 - left temporal lobe intracranial hemorrhage hospitalized at [facility] [place] for such (4) Chronic systolic CHF (congestive heart failure): (5) Type 2 diabetes mellitus: (6) Chronic kidney disease, stage III (moderate): (7) Coronary artery disease: (8) Afib: Plan cont inpatient hospice status will update family later today Admission and Anticipated Discharge Date Admission Date: October 05, 2024 Subjective Attending: Dr. Ware 89-year-old gentleman with a relevant history of stage 3 CKD, HTN, T2DM, CAD, DC, cardiac arrest, and recent CVA who was admitted with worsening kidney function. 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 He is a DNR/DNI and comfort measures only at this point. Review of Systems Review of Systems: Unobtainable due to reduced consciousness Physical Exam Physical Exam: GENERAL : EYES: NOSE: No evidence of epistaxis MOUTH: No lesions or candidiasis NECK: Supple LUNGS: CTA B/L, no wheezes, rales or rhonchi HEART: Regular, rate controlled ABDOMEN: Soft, NT, ND, BS Present EXTREMITIES: No LE edema, pedal pulses intact NEURO: Comfort measures only. Unresponsive. PG Care Time/CCT Total # of Minutes Spent Total Time Spent with Patient: Total time spent is greater than 50% in coordination of care (as documented) at patient's floor/unit and/or counseling patient: Coding Diagnoses Comfort measures only status Z51.5 Hospice care patient Z51.5 Intracranial hemorrhage I62.9 Chronic systolic CHF (congestive heart failure) I50.22 Type 2 diabetes mellitus E11.9 Chronic kidney disease, stage III (moderate) N18.30 Coronary artery disease I25.10 Paroxysmal atrial fibrillation I48.0 Atrial fibrillation type: paroxysmal (8) Afib Atrial fibrillation type: paroxysmal Qualified Code(s): I48.0 - Paroxysmal atrial fibrillation
--- NOTE | 2024-10-09 08:09 | Death Pronouncement Note ---
Date of Service October 09, 2024 Pronouncement Note Admission Date Admission Date: October 05, 2024 Date and Time of Date of : 10/09/24 Time of : 05:50 PCOD Preliminary cause of : Respiratory arrest Contributing Factors (1) Intracranial hemorrhage: (2) Chronic systolic CHF (congestive heart failure): (3) Type 2 diabetes mellitus: (4) Chronic kidney disease, stage III (moderate): (5) Coronary artery disease: (6) Afib: Hospital Course Hospital Course: Pt transitioned to [employer] on 10/03/24, plan for return to SNF when safe without sitter. Pt has been unresponsive to verbal and gentle tactile stimuli, attempts to awaken in concert with comfort directed care. He has appeared comfortable, pale skin, extremities cool. Respiratory effort decreased, rate 8-12/min with regular 30-40 second periods of apnea. Hospitalist has spoken with pt's son/KAILASH Watson by phone, updates given throughout recent stay. Had helped Walter understand that pt is showing signs of transition to active dying process and encouraged family visitation. Patient then early this morning at 5:50 am. Summary Additional details: Was notified by nurse that patient had stopped breathing at 5:50 am. Entered patient's room at 6:00 am and confirmed that the patient was not breathing, did not have radial or cartid pulses, did not have a heartbeat, and had pupils that were fixed and dilated. Additional Data Confirmation of : no pulse, no respirations, no heart sounds and pupils fixed and dilated Family: contacted (Nurse had already called) Attending/PCP notified?: Yes Attending physician: Parish Ware MD Was code activated?: No Autopsy requested?: No cattle examiner notified?: No Organ bank notified?: No
--- NOTE | 2024-10-10 19:37 | Discharge Summary ---
Discharge Summary Date of Service October 10, 2024 Principal Dx & Hospital Course #1 = Principal Diagnosis (1) Comfort measures only status: cont comfort measures only pathway patient is inpatient hospice status as well appreciate hospice input adjust morphine from q6h to q4h prn (2) Hospice care patient: (3) Intracranial hemorrhage: 08/2024 - left temporal lobe intracranial hemorrhage [place] [facility] [place] (4) Chronic systolic CHF (congestive heart failure): (5) Type 2 diabetes mellitus: (6) Chronic kidney disease, stage III (moderate): (7) Coronary artery disease: (8) Afib: Plan cont inpatient hospice status will update family later today Discharge Plan Discharge Items Patient Disposition: Other Date/Time: 10/09/24 05:50 Coding Diagnoses Comfort measures only status Z51.5 Hospice care patient Z51.5 Intracranial hemorrhage I62.9 Chronic systolic CHF (congestive heart failure) I50.22 Type 2 diabetes mellitus E11.9 Chronic kidney disease, stage III (moderate) N18.30 Coronary artery disease I25.10 Paroxysmal atrial fibrillation I48.0 Atrial fibrillation type: paroxysmal
== END 2024-10-09 09:00 | disposition expired | DRG 951 ==
LOC: 3W 15:53 → SUATTDRO 15:53